=== PATIENT | female | born 1980 | race Caucasian/White ===

== ENCOUNTER 2020-11-23 18:55 | Emergency (ER) | payer MEDICAID, SELFPAY ==
[2020-11-23 18:57] VITALS: BP 132/54; PULSE 81; RESP 18; TEMP 36.1; O2SAT 100; BMI 54.8
--- NOTE | 2020-11-23 19:02 | RAD_ITS ---
STUDY: X-RAY - RIGHT ANKLE REASON FOR EXAM: Female, 40 years old. INJURED RIGHT FOOT YESTERDAY AND TODAY. LATERAL SWELLING. TECHNIQUE: 3 view(s) of the ankle. COMPARISON: None. FINDINGS: Normal visualized distal tibia and fibula. Normal medial and lateral malleoli. Normal tibiotalar articulation and ankle mortise. Small plantar calcaneal spur noted. Normal visualized talus and calcaneus. The visualized subtalar, talonavicular, calcaneocuboid and tarsal articulations are normal. There is no demonstrated fracture. Mild to moderate soft tissue swelling is present in the lower leg and ankle. RAD/Ankle min 3 Views IMPRESSION: Mild to moderate soft tissue swelling Electronically Signed: Aftab Wren MD at 21:06 EDT , Service support ,
--- NOTE | 2020-11-23 21:29 | EDS_ITS ---
HPI History of Present Illness Chief Complaint: Lower Extremity Injury Informant: patient Narrative Narrative: 40-year-old female states that last night she twisted her right ankle and then twisted the again today. She notes swelling laterally and pain down onto her foot as well as over the lateral malleolus. No other injuries noted by patient. [facility] Medical History (Updated 11/23/20 @ 21:[address] Carrington Radre DO) Asthma Diabetes mellitus Home Medications Norgestimate-Ethinyl Estradiol [Sprintec] 1 ea PO DAILY 10/29/15 [History Last Taken Unknown] budesonide-formoterol [Symbicort 160/4.5 Mcg Inhaler (SP)] 2 puff INHALATION BID 10/29/15 [History Last Taken Unknown] furosemide 40 mg PO DAILY #7 tablet 10/29/15 [Rx Last Taken Unknown] Allergy/AdvReac Type Severity Reaction Status Date / Time Penicillins [PCN] Allergy Rash Verified 11/23/20 18:56 Social History (Updated 11/23/20 @ 21:[address] Carrington Rader DO) Smoking Status: Never smoker substance use type: does not use ROS ROS ED Constitutional Constitutional ED: Denies chills or weight loss Eyes Eyes: Denies change in vision or diplopia ENT ENT ED: Denies ear pain, rhinorrhea or sore throat Cardiovascular Cardiovascular: Denies chest pain, orthopnea, palpitations or racing heartbeat Respiratory/Chest Respiratory/Chest: Denies cough, dyspnea or orthopnea Gastrointestinal Gastrointestinal: Denies abdominal pain, diarrhea, nausea or vomiting Genitourinary Genitourinary ED: Denies dysuria, hematuria or urinary frequency Musculoskeletal Musculoskeletal: Reports other Details: See history of present illness ; Denies arthralgias or myalgias Integumentary Denies abscess or rash Neurologic Neurologic: Denies headache(s) or weakness Psychiatric Psychiatric: Denies anxiety, depression, suicidal ideation or suicidal thoughts Endocrine Endocrinology: Denies polydipsia, polyphagia or polyuria Allergic/Immunologic Allergic/Immunologic ED: Denies mouth swelling, tongue swelling or urticaria EXAM Physical Exam Const Vital Signs: 11/23/20 18:57 Temperature 97 F L Temperature Source Temporal Pulse Rate 81 Respiratory Rate 18 Blood Pressure 132/54 H Blood Pressure Mean 80 Pulse Ox 100 Oxygen Delivery Method Room Air Positive well nourished, well developed and obese General Appearance ED: well developed Nutritional Appearance: obese HEENT Reports normocephalic, head/scalp atraumatic and moist mucous membranes normocephalic and atraumatic Eyes PERRL and EOMs intact bilaterally General Eye ED: Yes other Neck full ROM, no lymphadenopathy, supple and no JVD Resp normal respiratory effort and clear to auscultation bilaterally Cardio regular rate, regular rhythm and no murmurs GI normal to inspection, nondistended, normoactive bowel sounds and non-tender Palpation: soft Back/Spine no CVA tenderness and normal ROM Extremity Extremity Narrative: There is tenderness along the fifth metatarsal on the lateral malleolus with associated swelling. No fibular head tenderness. General Extremety ED: Yes edema General Extremity: edema Neuro oriented x3 and CN's II-XII intact bilaterally Sensorium / Orientation: alert Motor Exam: strength 5/5 throughout Psych mental status grossly normal Mood & Affect: Negative for depressed or tearful Skin no rashes or lesions noted and no wounds MDM MDM MDM Narrative Medical decision making narrative: My interpretation of the plain films of the right ankle is soft tissue swelling. My interpretation of the plain films of the right foot is soft tissue swelling. Patient will use Jas wrap and crutches until she can ambulate appropriately. Radiography Diagnostic Testing: Clinical Impression(s) from Imaging Studies Ankle X-Ray 11/23/20 19:02 IMPRESSION: Mild to moderate soft tissue swelling Electronically Signed: Aftab Wren MD at 21:06 EDT , Service support , Discharge Plan Triage Chief Complaint: Lower Extremity Injury ED Provider: Carrington Rader Dx/Rx/DC Orders Clinical Impression: Ankle sprain Instructions: ED Ankle Sprain (Adult) Prescriptions: No Action budesonide-formoterol [Symbicort] 1 INHALER inhaler 2 puff inhalation BID RF: 0 Norgestimate-Ethinyl Estradiol [Sprintec] 1 EACH tablet 1 ea PO DAILY RF: 0 furosemide 40 MG tablet 40 mg PO DAILY Qty: 7 RF: 0 Primary Care Provider: Meng Fernandez Referrals: Meng Fernandez MD [Primary Care Provider] - 10-14 Days if not better Disposition Disposition: Home, Self Care
--- NOTE | 2020-11-23 21:38 | RAD_ITS ---
STUDY: X-RAY - LEFT FOOT CLINICAL: Female, 40 years old. TWISTED RIGHT ANKLE LAST NIGHT AND INJURED IT AGAIN TODAY. TECHNIQUE: 3 view(s) of the foot. COMPARISON: None. FINDINGS: Normal talus, calcaneus, and tarsal bones. Normal visualized subtalar, talonavicular, calcaneocuboid, tarsal and tarsometatarsal articulations. Normal metatarsi. Normal metatarsophalangeal joint of the great toe. Normal tibial and fibular sesamoid bones. Normal interphalangeal joint of the great toe. Normal phalanges of the great toe. Normal second through fifth metatarsophalangeal joints. Normal interphalangeal joints and phalanges of the lesser toes. Mild soft tissue swelling is present over the dorsum of the foot. There is no demonstrated fracture. RAD/Foot min 3 Views IMPRESSION: 1. Mild soft tissue swelling over the dorsum of the foot Electronically Signed: Aftab Wren MD at 22:03 EDT , Service support ,
== END 2020-11-23 22:20 | disposition home or self-care (01) ==
PROVIDERS: Emergency Provider Emergency Medicine; PCP Family Medicine
DX: S93.401A Sprain of unspecified ligament of right ankle, initial encounter (principal); X50.1XXA Overexertion from prolonged static or awkward postures, initial encounter; Y93.9 Activity, unspecified; Y92.9 Unspecified place or not applicable; E66.9 Obesity, unspecified; Z68.43 Body mass index [BMI] 50.0-59.9, adult; E11.9 Type 2 diabetes mellitus without complications; J45.909 Unspecified asthma, uncomplicated
CPT/HCPCS: 73610; 73630; 99283

== ENCOUNTER 2021-10-24 06:38 | Day surgery (SDC) | payer MEDICAID, SELFPAY ==
[2021-10-24] MEDS: Lactated Ringers 1,000 ML 15 ML IV (06:50)
[2021-10-24 07:05] VITALS: BP 106/56; PULSE 74; RESP 18; TEMP 36.4; O2SAT 96; BMI 52.2
--- NOTE | 2021-10-24 08:15 | RAD_ITS ---
HISTORY: CERVICAL EPIDURAL STEROID INJECTION. TECHNIQUE: Single spot image. COMPARISON: None. FINDINGS: OSSEOUS STRUCTURES: Needle overlying the spine at the level of the clavicular heads. FLUOROSCOPY TIME: 9.8 seconds. RADIATION DOSE: 3.24 mGy. RAD/Spine 1 View Any Level IMPRESSION: Fluoroscopic guidance for epidural steroid injection. Please refer to procedure note. Electronically Signed: Citlali aWlton MD at 11:10 EDT ,
[2021-10-24] MEDS: MethylPREDNISolone Acetate 80 MG/ML Vial (08:18)
--- NOTE | 2021-10-24 08:34 | OP.PCM_ITS ---
Report of Operation Date of Procedure: 10/24/21 Description of Surgical Findings:: PREOPERATIVE DIAGNOSES: Cervical radiculopathy, cervical degenerative disc disease, cervical spinal stenosis POSTOPERATIVE DIAGNOSES: Cervical radiculopathy, cervical degenerative disc disease, cervical spinal stenosis PROCEDURE PERFORMED: Cervical epidural steroid injection, interlaminar at C7-T1 under fluoroscopic guidance.. ANESTHESIA: Local. BLOOD LOSS: Minimal. COMPLICATIONS: None. DESCRIPTION OF PROCEDURE: History and physical of today was reviewed. Risks and benefits of the procedure were explained. The patient understood and agreed to proceed. Informed consent was obtained. IV inserted per routine protocol. The patient was taken to the operating room and placed in the prone position with a pillow positioned underneath the chest. The neck area was prepped and draped in a sterile fashion using iodine x3. Under fluoroscopy guidance on an AP view, the C7-T1 interlaminar space was identified. The skin and subcutaneous tissue was anesthetized with approximately 3 mL of 1% lidocaine using a 25-gauge regular needle. Under direct visualization on fluoroscopy, on AP view, using a 20-gauge 3-1/2-inch Tuohy needle, the needle was advanced via the skin. The tip of the needle was maneuvered and directed towards the interlaminar space at C7- T1. Loss of resistance technique was carried to air. Loss of resistance technique was encountered. Once encountered, after negative aspiration for blood and CSF, a total of 1 mL of contrast was injected to confirm correct placement of the needle as well as cephalocaudal spread of the contrast. Confirmation was obtained on AP as well as lateral view. After repeated negative aspiration and confirmation, a total of 3 mL of preservative-free normal saline and 80 mg of Depo-Medrol was injected easily. The needle was then removed intact. The patient experienced no sign or symptoms of intrathecal or intravascular injection. The patient experienced no paresthesia. The procedure was completed without any apparent difficulty or any complications. The patient appeared to tolerate it well. ASSESSMENT AND PLAN: This is a 41-year-old female with cervical radiculopathy, cervical degenerative disc disease, cervical spinal stenosis status post cervical epidural steroid injection interlaminar at C7-T1 under fluoroscopic guidance, patient will continue her current medications, patient will follow in approximately 2 weeks for reevaluation.
[2021-10-24 09:04] VITALS: BP 108/65; PULSE 71; RESP 16; TEMP 36.7; O2SAT 99
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
== END 2021-10-24 09:07 | disposition home or self-care (01) ==
LOC: SDC 06:39 → AC 06:41
PROVIDERS: PCP Family Medicine; Referring Provider Anesthesiology Pain Medicine; Visit Provider Anesthesiology Pain Medicine
PROC: 3E0S3BZ Introduction of Anesthetic Agent into Epidural Space, Percutaneous Approach (ICD-10-PCS; CPT 62320; principal; 2021-10-24 08:05)
DX: M50.13 Cervical disc disorder with radiculopathy, cervicothoracic region (principal); M48.02 Spinal stenosis, cervical region; M47.22 Other spondylosis with radiculopathy, cervical region; F41.9 Anxiety disorder, unspecified; F32.9 Major depressive disorder, single episode, unspecified; Z79.899 Other long term (current) drug therapy
CPT/HCPCS: 62323; 64490; 72020; J7120

== ENCOUNTER → 2022-05-16 | Outpatient (CLI) | payer MEDICAID, SELFPAY ==
--- NOTE | 2022-05-16 07:43 | VDLE_ITS ---
Reason For Study: Swelling Procedure LEFT This is a venous duplex using B-mode, color GSV is normal. flow and spectral Doppler. CFV is compressible, spontaneous, phasic, Exam performed in department. competent, and demonstrates normal A preliminary report was called and/or faxed augmentation. to Derek ARMENTA. FV is compressible, spontaneous, phasic, competent and demonstrates normal augmentation. POP V is compressible, spontaneous, phasic, competent and demonstrates normal augmentation. T/P Trunk is compressible. PTV is compressible. LT PerV is compressible. VL/Venous Duplex US, Unilateral Interpretation Summary There is no evidence of left lower extremity deep vein thrombosis. Left great s aphenous vein appears patent and compressible segmentally. Ordering Physician: Jessica Reed Referring Physician: Jessica Reed Performed By: Keli Griffin RVT
== END | disposition home or self-care (01) ==
LOC: CVS 07:38
PROVIDERS: PCP Nurse Practitioner Family; Referring Provider Nurse Practitioner Family; Visit Provider Nurse Practitioner Family
DX: R60.9 Edema, unspecified (principal)
CPT/HCPCS: 93971

== ENCOUNTER 2022-05-18 16:13 | Emergency (ER) | payer MEDICAID, SELFPAY ==
[2022-05-18 16:17] VITALS: BP 122/85; PULSE 97; RESP 18; TEMP 36.2; O2SAT 95; BMI 57.5
--- NOTE | 2022-05-18 16:48 | EKG12_ITS ---
Test Reason : SOB Blood Pressure : / mmHG Vent. Rate : 095 BPM Atrial Rate : 095 BPM P-R Int : 140 ms QRS Dur : 080 ms QT Int : 370 ms P-R-T Axes : 063 035 036 degrees QTc Int : 464 ms Normal sinus rhythm Nonspecific ST abnormality Abnormal ECG Confirmed by ED HAILE ([id number]), newspaper copy editor AYAN SHETTY ([id number]) on 05/23/2022 7:41:11 AM Referred By: KOJO Confirmed By:ED HAILE
--- NOTE | 2022-05-18 16:50 | EDS_ITS ---
HPI History of Present Illness Chief Complaint: Shortness of Breath Informant: patient Narrative Narrative: Patient referred by her primary physician for chest pain shortness of breath and not putting out increased urination after starting Lasix about a week ago. Patient states she has been having dyspnea for a week or so. She saw her family doctor. She thought that there was a weight gain from fluids. It sounds like she had gone from 280 to about 314 pounds over the last month or so. She was started on Lasix 40 mg once a day. But this really did not significantly increase the amount of urine output and did not change the patient's symptoms. Patient is also been having some chest pain. She describes it as a heaviness across her chest. She occasionally gets sharp pains on her left upper chest and down her left arm but is not having those now. She states she has a rare cough but not different than normal as she does have asthma. She is having some increased asthma but is not really using her inhaler more. No fevers or chills. She is having a little bit of left leg soreness along with both leg swelling. But the left leg was more involved. They just an outpatient ultrasound that was negative for DVT. Patient's father in his mid young 60s of heart failure. He had had a heart attack a week or so prior but not prior to the age of 55. Patient is a non- smoker. She does not have a history of high blood pressure cholesterol. Elizabeth dently her glucose was high on some recent labs but she has not been diagnosed or treated as diabetes at this point. She has not had any travel surgery immobilization personal or family history of DVT or PEs. [facility] Medical History Asthma Diabetes mellitus Home Medications Norgestimate-Ethinyl Estradiol [Sprintec] 1 ea PO DAILY 10/29/15 [History Last Taken Unknown] budesonide-formoterol HFA 160 mcg-4.5 mcg/actuation aerosol inhaler (Symbicort) 2 puff inhalation BID 10/29/15 [History Last Taken Unknown] furosemide 40 mg tablet 40 mg PO DAILY ##7 10/29/15 [Rx Last Taken Unknown] Allergy/AdvReac Type Severity Reaction Status Date / Time cephalexin Allergy Other Verified 05/18/22 16:15 ciprofloxacin [From Cipro] Allergy Other Verified 05/18/22 16:15 lisinopril Allergy Other Verified 05/18/22 16:15 methylprednisolone Allergy Other Verified 05/18/22 16:15 [From Medrol] nitrofurantoin Allergy Other Verified 05/18/22 16:15 [From Macrobid] Penicillins [PCN] Allergy Rash Verified 11/23/20 18:56 sulfamethoxazole Allergy Other Verified 05/18/22 16:15 [From Bactrim] trimethoprim [From Bactrim] Allergy Other Verified 05/18/22 16:15 Social History Smoking Status: Never smoker substance use type: does not use ROS ROS ED Constitutional Constitutional ED: Denies chills or fever(s) Eyes Eyes: Denies change in vision ENT ENT ED: Denies ear pain, rhinorrhea or sore throat Cardiovascular Cardiovascular: Reports chest pain; Denies palpitations or racing heartbeat Respiratory/Chest Respiratory/Chest: Reports cough and dyspnea; Denies sputum Gastrointestinal Gastrointestinal: Denies nausea or vomiting Genitourinary Genitourinary ED: Denies dysuria Musculoskeletal Musculoskeletal: Reports back pain and other Details: Patient has some mild chronic back pain that is not different than any other time. Integumentary Denies rash Neurologic Neurologic: Denies paresthesias or weakness Hematologic/Lymphatic Hematologic/Lymphatic: Denies easy bleeding or easy bruising Allergic/Immunologic Allergic/Immunologic ED: Denies urticaria EXAM Physical Exam Narrative Exam Narrative: Patient awake alert no acute distress carries on normal conversation HEENT: Shows no sign of trauma. Mucous membranes are moist Eyes: No icterus Neck shows no JVD Lungs are clear. There may be a slightly prolonged expiration but no actual wheezing is heard. No pain with a deep breath. Heart is regular. Rate about 85 on the monitor now. No ectopy. No muffled heart tones. Pulses distally are normal. Abdomen is obese but otherwise benign. No tenderness. Extremities show no pitting edema. No focal tenderness. No distended veins. Neurologically she is awake alert and appropriate. Const Vital Signs: 05/18/22 16:17 05/18/22 16:41 05/18/22 17:13 Temperature 97.2 F L Temperature Source Temporal Pulse Rate 97 87 Respiratory Rate 18 18 Respiratory Effort Normal Non-Labored Respiratory Pattern Normal Normal Blood Pressure 122/85 H Blood Pressure Mean 97 Pulse Ox 95 Oxygen Delivery Method Room Air 05/18/22 17:13 05/18/22 18:14 Temperature Temperature Source Pulse Rate 94 Respiratory Rate 18 Respiratory Effort Respiratory Pattern Blood Pressure 120/78 Blood Pressure Mean 92 Pulse Ox 94 98 Oxygen Delivery Method Room Air Room Air MDM MDM MDM Narrative Medical decision making narrative: My independent interpretation the patient's chest x-ray shows no acute process. This is consistent with the final reading. New Because her D-dimer was elevated, we did do a CTA of the chest that showed no acute process including no PE or dissection. Patient CBC is normal. Her D-dimer was elevated therefore the CTA was done. Electrolytes show no marked abnormalities. She did have mildly low sodium and mildly elevated glucose. Her troponin was negative and not measurable Her BNP was only 6.5. There is no indication of congestive heart failure, cardiac damage, PE, dissection, pneumonia. Her influenza and COVID are negative. Patient states she has had some more wheezing although I do not hear much now. DuoNeb did seem to help slightly. I will give her a dose of Decadron to see if this will help as she may have an asthma exacerbation and she will follow-up with her physician. Lab Data Attestation: I reviewed the patient's lab results. Labs: Laboratory Results - last 24 hr 05/18/22 05/18/22 05/18/22 17:05 17:05 17:05 WBC 7.8 RBC 4.62 Hgb 12.9 Hct 39.5 MCV 85.5 MCH 27.9 MCHC 32.7 RDW Std Deviation 41.1 RDW Coeff of Derian 13.3 Plt Count 233 MPV 10.1 Immature Gran % (Auto) 0.400 Neut % (Auto) 60.7 Lymph % (Auto) 28.6 Mcpherson % (Auto) 8.5 Eos % (Auto) 1.4 Baso % (Auto) 0.4 Absolute Neuts (auto) 4.7 Absolute Lymphs (auto) 2.23 Nucleated RBC % 0 D-Dimer Quant (PE/DVT) 2.07 H* Sodium 135 L Potassium 3.8 Chloride 106 Carbon Dioxide 25.0 Anion Gap 4 L BUN 14 Creatinine 0.78 Estim Creat Clear Calc 73.55 Est GFR (MDRD) Af Amer 104 Est GFR (MDRD) Non-Af 86 BUN/Creatinine Ratio 18.0 Glucose 123 H Calcium 9.0 Troponin I High Sens < 3 L B-Natriuretic Peptide 05/18/22 17:05 WBC RBC Hgb Hct MCV MCH MCHC RDW Std Deviation RDW Coeff of Derian Plt Count MPV Immature Gran % (Auto) Neut % (Auto) Lymph % (Auto) Mcpherson % (Auto) Eos % (Auto) Baso % (Auto) Absolute Neuts (auto) Absolute Lymphs (auto) Nucleated RBC % D-Dimer Quant (PE/DVT) Sodium Potassium Chloride Carbon Dioxide Anion Gap BUN Creatinine Estim Creat Clear Calc Est GFR (MDRD) Af Amer Est GFR (MDRD) Non-Af BUN/Creatinine Ratio Glucose Calcium Troponin I High Sens B-Natriuretic Peptide 6.5 Radiography Diagnostic Testing: Clinical Impression(s) from Imaging Studies Chest X-Ray 05/18/22 17:05 IMPRESSION: No radiographic evidence of acute cardiopulmonary disease. Electronically Signed: Otis Orozco MD at 17:40 EDT , Chest CTA 05/18/22 17:50 IMPRESSION: No demonstrated pulmonary embolism or arterial dissection. Electronically Signed: Otis Orozco MD at 18:33 EDT , EKG Initial EKG: Comments: My independent interpretation the patient's EKG done for chest pain and dyspnea shows a normal sinus rhythm with overall rate of 95. No ectopy. No significant ST changes but there are some diffuse nonspecific changes. WI interval, QRS duration and QTc are within normal limits. Discharge Plan Triage Chief Complaint: Shortness of Breath Other Complaint: Chest Pain Edema ED Provider: Tito Alexander Dx/Rx/DC Orders Clinical Impression: Dyspnea, Asthma exacerbation Instructions: ED Asthma, Acute (Adult), ED Dyspnea Prescriptions: No Action budesonide-formoterol [Symbicort] 1 INHALER inhaler 2 puff inhalation BID Norgestimate-Ethinyl Estradiol [Sprintec] 1 EACH tablet 1 ea PO DAILY furosemide 40 MG tablet 40 mg PO DAILY Qty: 7 0RF Primary Care Provider: Jessica Reed NP Referrals: Jessica Reed NP, [facility] [Primary Care Provider] - 3-5 Days Disposition Disposition: Home, Self Care
--- NOTE | 2022-05-18 17:05 | RAD_ITS ---
EXAM: XR CHEST, 1 VIEW CLINICAL INDICATION: SOB TECHNIQUE: Frontal view of the chest. This report was created using [employer] report generation technology. COMPARISON: 10.29.15. FINDINGS: LUNGS AND PLEURAL SPACES: Unremarkable. No consolidation or edema. No pneumothorax. No effusion. HEART: Unremarkable. Cardiac silhouette not enlarged. MEDIASTINUM: Central airways and mediastinal contour are unremarkable. BONES/JOINTS: Unremarkable. SOFT TISSUES: Unremarkable. RAD/Chest 1 View (Portable) IMPRESSION: No radiographic evidence of acute cardiopulmonary disease. Electronically Signed: Otis Orozco MD at 17:40 EDT ,
[2022-05-18] MEDS: Ipratropium/Albuterol Sulfate 3 ML AMPUL.NEB INHALATION (17:12)
[2022-05-18 17:13] VITALS: PULSE 87; RESP 18; O2SAT 94
[2022-05-18 17:17] LABS: Absolute Lymphocyte Count 2.23 X10^3/uL (0.83-4.51); Absolute Neutrophil Count 4.7 X10^3/uL (2.0-7.7); Basophil# 0.03 X10^3/uL; Basophil% 0.4 % (0-1); Eosinophil# 0.11 X10^3/uL; Eosinophils% 1.4 % (0-5); Hematocrit 39.5 % (37-47); Hemoglobin 12.9 g/dL (12.0-15.0); Lymphocyte # 2.23 X10^3/ul (0.83-4.51); Lymphocyte % 28.6 % (19-41); Mean Corp Hgb Conc 32.7 g/dL (32-36); Mean Corpuscular Hgb 27.9 pg (27.0-32.0); Mean Corpuscular Volume 85.5 fL (81-99); Mean Platelet Vol. 10.1 fl (6.2-12.0); Monocyte# 0.66 X10^3/uL; Monocyte% 8.5 % (0-10); NRBC Flagged by Analyzer 0 % (0-5); Neutrophil # 4.73 X10^3/uL (2.7-7.7); Neutrophil % 60.7 % (47-70); Platelet Count 233 K/mm3 (150-450); RBC Distribution Width CV 13.3 % (11.6-14.6); RBC Distribution Width SD 41.1 fl (35.1-43.9); Red Blood Count 4.62 M/mm3 (4.2-5.4); White Blood Count 7.8 K/mm3 (4.4-11.0)
[2022-05-18 17:33] LABS: Anion Gap 4 (5-15); BUN 14 mg/dL (7-18); Chloride 106 mmol/L (98-107); Creatinine, Serum 0.78 mg/dL (0.55-1.02); EST Glomerular Filtration Rate 86 mL/min (>60); Est Glom Filt Rate - Afr Amer 104 mL/min (>60); Estimated Creatinine Clearance 73.55 ml/min; Glucose 123 mg/dL (74-106); Potassium 3.8 mmol/L (3.5-5.1); Sodium Level 135 mmol/L (136-145); Troponin-I HS < 3 pg/mL (3.0-54.0)
[2022-05-18 17:39] LABS: BNP,B-Type NATRIURETIC PEPTIDE 6.5 pg/mL (0-100)
[2022-05-18 17:48] LABS: D-Dimer Quantitative (DVT/PE) 2.07 FEU/ug/m (0.27-0.49)
--- NOTE | 2022-05-18 17:50 | CT_ITS ---
EXAM: CT ANGIOGRAPHY CHEST WITHOUT AND WITH INTRAVENOUS CONTRAST CLINICAL INDICATION: pain TECHNIQUE: Helically acquired angiography images were obtained of the chest without and with intravenous contrast. This CT exam was performed using one or more of the following dose reduction techniques: automated exposure control, adjustment of the mA and/or kV according to patient size, and/or use of iterative reconstruction technique. This report was created using [employer] report generation technology. MIP reconstructed images were created and reviewed. CONTRAST: IV 100mL Isovue-370 RADIATION DOSE: CTDIvol = 18.97 mGy, DLP = 561.73 mGy-cm COMPARISON: None. FINDINGS: PULMONARY ARTERIES: Unremarkable. No demonstrated pulmonary embolism or arterial dissection. AORTA: Unremarkable. Normal in caliber. No evidence of dissection. GREAT VESSELS OF AORTIC ARCH: Unremarkable. Normal in caliber. No evidence of dissection. LUNGS AND PLEURAL SPACES: Unremarkable. No mass. No consolidation or edema. No pleural effusion or thickening. No pneumothorax. HEART: Unremarkable. Heart size is normal. No pericardial effusion. No signs of right heart strain, ratio of right ventricle to left ventricle measures less than 1. MEDIASTINUM: Unremarkable. No mediastinal or hilar adenopathy. Esophagus is unremarkable. No hiatal hernia. THYROID: Unremarkable. No thyroid lesions. BONES/JOINTS: There are degenerative findings of the thoracic spine. No suspicious lytic or blastic abnormality. GALLBLADDER AND BILE DUCTS: The gallbladder is surgically absent. CT/CTA Chest W/WO Contrast IMPRESSION: No demonstrated pulmonary embolism or arterial dissection. Electronically Signed: Otis Orozco MD at 18:33 EDT ,
[2022-05-18 18:14] VITALS: BP 120/78; PULSE 94; RESP 18; O2SAT 98
[2022-05-18] MEDS: dexAMETHasone 4 MG Tablet 10 MG PO (19:04)
== END 2022-05-18 19:06 | disposition home or self-care (01) ==
PROVIDERS: Emergency Provider Emergency Medicine; PCP Nurse Practitioner Family; Visit Provider Emergency Medicine
DX: J45.901 Unspecified asthma with (acute) exacerbation (principal); E11.65 Type 2 diabetes mellitus with hyperglycemia; J11.1 Influenza due to unidentified influenza virus with other respiratory manifestations
CPT/HCPCS: 71045; 71275; 80048; 83880; 84484; 85025; 85379; 87428; 93005; 94640; 99285; Q9967; A4216

== ENCOUNTER → 2022-06-02 | Outpatient (CLI) | payer MEDICAID, SELFPAY ==
--- NOTE | 2022-06-03 15:49 | STRESSREP_ITS ---
Stress Test Report Date: 06/02/2022 Procedure: Exercise tolerance test Indications: Chest pain, dyspnea Consent: Per the patient Procedure: The patient exercised on a Usman protocol for 1 minute and 11 seconds achieving a peak heart rate of 144 bpm (81% predicted maximal heart rate) with a peak blood pressure 190/72 mmHg and a peak MET capacity of approximately 4.6 MET's. The baseline ECG demonstrated normal sinus rhythm. The peak exercise ECG demonstrated no significant ischemic changes. [There were no cardiac dysrhythmias pretest, during exercise, or recovery]. The functional capacity was considered significantly decreased for age. The patient had chest pressure and shortness of breath with exercise. The examination was discontinued secondary to severe shortness of breath, chest pressure. Impression: 1. Inability to reach 85% of maximal age-predicted heart rate decreases the sensitivity of this test 2. Stress test is positive for exercise-induced chest pain. 3. Stress test test is negative for exercise-induced EKG changes of ischemia. 4. Functional capacity is significantly decreased for age This note was generated with [employer] software. It may contain incorrect words, spelling, and punctuation that were not noted in checking the note before signing.
== END | disposition home or self-care (01) ==
LOC: CVS 09:43
PROVIDERS: PCP Nurse Practitioner Family; Referring Provider Nurse Practitioner Family; Visit Provider Nurse Practitioner Family
DX: R06.02 Shortness of breath (principal)
CPT/HCPCS: 93017

== ENCOUNTER → 2022-06-12 | Outpatient (CLI) | payer MEDICAID, SELFPAY ==
[2022-06-12 16:42] LABS: Absolute Lymphocyte Count 2.63 X10^3/uL (0.83-4.51); Absolute Neutrophil Count 5.1 X10^3/uL (2.0-7.7); Basophil# 0.04 X10^3/uL; Basophil% 0.5 % (0-1); Eosinophil# 0.19 X10^3/uL; Eosinophils% 2.2 % (0-5); Hematocrit 39.2 % (37-47); Hemoglobin 13.4 g/dL (12.0-15.0); Lymphocyte # 2.63 X10^3/ul (0.83-4.51); Lymphocyte % 29.9 % (19-41); Mean Corp Hgb Conc 34.2 g/dL (32-36); Mean Corpuscular Hgb 28.9 pg (27.0-32.0); Mean Corpuscular Volume 84.5 fL (81-99); Mean Platelet Vol. 9.8 fl (6.2-12.0); Monocyte# 0.79 X10^3/uL; NRBC Flagged by Analyzer 0 % (0-5); Neutrophil # 5.11 X10^3/uL (2.7-7.7); Neutrophil % 58.1 % (47-70); Platelet Count 277 K/mm3 (150-450); RBC Distribution Width CV 13.8 % (11.6-14.6); RBC Distribution Width SD 41.5 fl (35.1-43.9); Red Blood Count 4.64 M/mm3 (4.2-5.4); White Blood Count 8.8 K/mm3 (4.4-11.0)
[2022-06-12 16:54] LABS: Partial Thromboplast Time 26.7 Seconds (24.1-36.2)
[2022-06-12 17:08] LABS: Anion Gap 7 (5-15); BUN 10 mg/dL (7-18); BUN/Creat Ratio 13.8 RATIO (10-20); Calcium,Total 9.1 mg/dL (8.5-10.1); Chloride 106 mmol/L (98-107); Cholesterol 181 mg/dL (200); Creatinine, Serum 0.72 mg/dL (0.55-1.02); EST Glomerular Filtration Rate 93 mL/min (>60); Est Glom Filt Rate - Afr Amer 113 mL/min (>60); Glucose 120 mg/dL (74-106); High Density Lipoprotein 50 mg/dL; Potassium 4.1 mmol/L (3.5-5.1); Sodium Level 140 mmol/L (136-145); Triglycerides 328 mg/dL; Very Low Density Lipoprotein 66 mg/dL (5-40)
== END | disposition home or self-care (01) ==
LOC: LAB 16:28
PROVIDERS: PCP Nurse Practitioner Family; Referring Provider Physician Assistant Medical; Visit Provider Physician Assistant Medical
DX: I20.9 Angina pectoris, unspecified (principal); R06.09 Other forms of dyspnea
CPT/HCPCS: 36415; 80048; 80061; 85025; 85610; 85730

== ENCOUNTER 2022-06-30 06:38 | Day surgery (SDC) | payer MEDICAID, SELFPAY ==
[2022-06-29 07:27] VITALS: BMI 58.1
--- NOTE | 2022-06-30 09:44 | CL.D_ITS ---
Patient Name: TIMO BRICEÑO Study Date: 06/30/2022 Performing: Ramon Seth MD Ht: 62 inches 157.48 cm : 1980 Wt: 317.99 lbs 144.24 kg Age: 42 Gender: female BSA: 2.33 PROCEDURE(S) PERFORMED DC02-(80148)C/COR CLINICAL PROFILE AND INDICATIONS Indications: Other Heart Failure: None Stress/Imaging Stress/Image Study Performed: No CAD Presentations: Other: sob CONCLUSIONS Normal coronary arteries RECOMMENDATIONS Medical therapy DESCRIPTION OF PROCEDURE The patient arrived to the procedure lab. The risks and benefits of the procedure as well as a full description of our services here and current unavailability of surgical backup were fully explained to the patient and/or their significant other prior to the catheterization. The Timeout was completed, verifying the correct patient and procedure. The patient's procedural site was prepped and draped in the usual fashion. Local anesthetic was given subcutaneously to right radial region with Lidocaine 2%. Using a modified Seldinger technique, arterial access was obtained via the right radial artery, a 6Fr sheath was inserted. Right Coronary Artery selective angiography was then performed in multiple views using a 5 Fr. 4.0 Valders catheter. Left Coronary Artery selective angiography was performed in multiple views using a 5 Fr. JL3.5 catheter.The arterial sheath was pulled and a TR Band was applied for hemostasis. 10cc of air CORONARY ANGIOGRAPHY DOMINANCE: Right Dominant LEFT HEART ASSESSMENT Left Ventricular Ejection Fraction: by Echo 55 % Normal LV wall motion. Normal LV wall motion LEFT MAIN: Angiographically normal LEFT ANTERIOR DESCENDING ARTERY: Angiographically normal CIRCUMFLEX ARTERY: Angiographically normal RIGHT CORONARY ARTERY: Angiographically normal COMPLICATIONS No Complications PROCEDURE MEDICATIONS Fentanyl 50 mcg IV Versed 1 mg IV Versed 1 mg IV Versed 1 mg IV Fentanyl 25 mcg IV Fentanyl 25 mcg IV Fentanyl 25 mcg IV Oxygen: 2 L/min via nasal cannula Aspirin (325mg) 1 Tabs PO @ 06/30/2022 07:07:53 Heparin given IA 06/30/2022 08:34:21 Verapamil 2.5mg, Ntg 100mcgs, 3000 units of Heparin given IA 06/30/2022 08:34:21 SUMMARY OF HEMODYNAMIC DATA Time AIR REST ECG 07:06:32 Art 98/57 (71) 08:39:29 AO 124/77 (99) SA 09:02:14 LV 130/7, 16 09:30:12 LV 139/15, 30 09:30:42 LV 141/20, 32 09:31:10 Signed By Ramon Seth MD On 06/30/2022 09:43:18 Ramon Seth MD
== END 2022-06-30 11:05 | disposition home or self-care (01) ==
PROVIDERS: PCP Nurse Practitioner Family; Referring Provider Internal Medicine Cardiovascular Disease; Visit Provider Internal Medicine Cardiovascular Disease
DX: R06.02 Shortness of breath (principal); I20.9 Angina pectoris, unspecified; E11.9 Type 2 diabetes mellitus without complications; R07.9 Chest pain, unspecified; Z82.49 Family history of ischemic heart disease and other diseases of the circulatory system; Z86.16 Personal history of COVID-19; J45.909 Unspecified asthma, uncomplicated; F32.A Depression, unspecified; Z90.49 Acquired absence of other specified parts of digestive tract; R06.09 Other forms of dyspnea
CPT/HCPCS: 93454; 99152; 99153; J7040; Q9967; C1769; C1887; C1894

== ENCOUNTER → 2022-07-06 | Outpatient (CLI) | payer MEDICAID, SELFPAY ==
--- NOTE | 2022-07-06 13:52 | ECHOCS_ITS ---
Reason For Study: DYSPNEA Procedure This was a 2D Doppler, Color Flow transthoracic echocardiogram. The study was technically difficult. Due to body habitus. Exam performed in department. Left Ventricle Normal LV size. Left ventricular systolic function is normal. The estimated ejection fraction is 55 %. Stage 1 diastolic dysfunction. No regional wall motion abnormalities noted. Right Ventricle Normal RV size. Normal systolic function. Atria Normal left atrium. Normal right atrium. Mitral Valve Mitral valve not well visualized. Tricuspid Valve The tricuspid valve is not well visualized. Mild (1+) tricuspid valve insufficiency. Pulmonary artery systolic pressure is 30 mmHg. Aortic Valve The aortic valve is not well visualized. Great Vessels Normal aortic root. The pulmonary artery is normal size. Normal inferior vena cava. Pericardium/Pleural No pericardial effusion. Medication 22 gauge I.V. with prn adaptor inserted into right arm. Diluted definity 2.5ml given slow IV push to enhance endocardial definition. MMode/2D Measurements & Calculations LVIDd: 5.2 cm IVSd: 0.95 cm Ao root diam: 3.3 cm LVIDs: 2.8 cm LVPWd: 0.95 cm RVDd: 2.9 cm FS: 45.9 % LAV(MOD-bp): 51.0 ml LA A4 area: 16.9 cm2 LA dimension(2D): 4.2 cm LAV(MOD-bp) Indexed: 21.9 ml/m2 LAV(MOD-sp2): 47.6 ml LAV(MOD-sp4): 47.3 ml RA A4 area: 12.4 cm2 Time Measurements MV dec time: 0.18 sec Doppler Measurements & Calculations MV E max jeffery: 77.0 cm/sec Lat Peak E' Jeffery: 12.3 cm/sec Med Peak E' Jeffery: 11.6 cm/sec MV A max jeffery: 86.8 cm/sec E/E' lat: 6.2 E/E' med: 6.7 MV E/A: 0.89 MV dec slope: 433.5 cm/sec2 Ao V2 max: 173.6 cm/sec LV V1 max: 121.1 cm/sec Ao max P.1 mmHg LV V1 max P.9 mmHg Ao V2 mean: 123.5 cm/sec LV V1 mean P.4 mmHg Ao mean P.0 mmHg LV V1 mean: 85.7 cm/sec Ao V2 VTI: 36.3 cm LV V1 VTI: 22.7 cm AV (velocity ratio): 0.63 PA V2 max: 102.0 cm/sec TR max jeffery: 251.4 cm/sec PA V2 mean: 72.6 cm/sec TR max P.3 mmHg ECHO/Echo Complete W/ Contrast Interpretation Summary Normal LV size. Left ventricular systolic function is normal. The estimated ejection fraction is 55 %. Stage 1 diastolic dysfunction. Contrast injection was performed. Ordering Physician: Rolo, Ramon Referring Physician: Jessica Reed Performed By: Lainey Wood, EMRE, RVT
== END | disposition home or self-care (01) ==
LOC: CVS 13:51
PROVIDERS: PCP Nurse Practitioner Family; Referring Provider Internal Medicine Cardiovascular Disease; Visit Provider Internal Medicine Cardiovascular Disease
DX: R06.09 Other forms of dyspnea (principal)
CPT/HCPCS: 93306; Q9957; A4216; C8929

== ENCOUNTER 2022-09-30 14:22 | Emergency (ER) | payer MEDICAID, SELFPAY ==
[2022-09-30 14:23] VITALS: BP 142/83; PULSE 89; RESP 16; TEMP 36.1; O2SAT 97; BMI 56.5
--- NOTE | 2022-09-30 14:25 | RAD_ITS ---
STUDY: X-RAY - RIGHT KNEE REASON FOR EXAM: Female, 42 years old. INJURY TECHNIQUE: 3 view(s) of the knee. COMPARISON: None. FINDINGS: There is demineralization of the visualized distal femur. There is demineralization of the tibia and fibula. Normal proximal tibiofibular articulation. 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 There is moderate degenerative arthrosis of the lateral femorotibial compartment with moderate joint space narrowing. Prosthesis of the patellofemoral joint is noted showing normal alignment. The soft tissue structures are unremarkable. RAD/Knee 4 or More Views IMPRESSION: Patellar prosthesis with noted normal alignment and moderate arthrosis of the medial lateral joint space. No evidence of acute fracture. Electronically Signed: Farooq Sherwood DO at 15:41 EDT ,
[2022-09-30] MEDS: Oxycodone/Apap 5/325 Tablet PO (15:11)
--- NOTE | 2022-09-30 15:20 | EDS_ITS ---
<Statement entered by Amber Renteria MD - 09/30/22 16:06> I have personally performed a face to face assessment of the patient and have reviewed the BERNIE Note. Patient presents secondary to right knee injury. Patient has a prior right knee injury and had surgery at the [facility]. Last evening she was holding a large rock. Became too heavy and she dropped down striking her right knee. She has pain and swelling to her right knee. She is able to weight-bear but has antalgic gait. Patient sitting upright in bed no acute distress. Head neck examination unremarkable. Heart is regular rate and rhythm. Lung sounds are clear. Right lower extremity examination reveals well-healed anterior surgical incision. Mild edema noted. Patient is able to straight leg raise her heel off the bed. Strong distal pulses are noted. Right knee x-rays are obtained. Per my interpretation no evidence of acute fracture. Hardware intact. Radiology interpretation is reviewed and agrees. Patient will be given return instructions. She is to follow-up with her orthopedic physician if not improving. HPI History of Present Illness Chief Complaint: Lower Extremity Injury Narrative Narrative: Patient is a 42-year-old female with history of obesity, MARIAM who presents to the emergency department with right knee injury. Patient did have surgery to this knee secondary to patella fracture. Patient states that yesterday, she was moving heavy object when the object fell down striking her knee. Patient does have swelling and ecchymosis. Patient dates has worsening pain with flexion extension as well as ambulation. She is concerned secondary to having history of surgery to this knee. [facility] Medical History (Updated 09/30/22 @ 15:55 by GEOVANY Denise) Asthma COVID-19 Depression Diabetes mellitus Home Medications budesonide-formoterol HFA 160 mcg-4.5 mcg/actuation aerosol inhaler (Symbicort) 2 puff inhalation BID 10/29/15 [History Last Taken Unknown] albuterol sulfate 90 mcg/actuation aerosol inhaler (Ventolin HFA) 1 puff inhalation Q6H PRN shortness of breath or wheezing 06/12/22 [History Last Taken Unknown] sertraline 100 mg tablet 100 mg PO BID 06/12/22 [History Last Taken Unknown] Allergy/AdvReac Type Severity Reaction Status Date / Time cephalexin Allergy Other Verified 09/19/22 14:20 ciprofloxacin [From Cipro] Allergy Other Verified 09/19/22 14:20 lisinopril Allergy Other Verified 09/19/22 14:20 methylprednisolone Allergy Other Verified 09/19/22 14:20 [From Medrol] nitrofurantoin Allergy Other Verified 09/19/22 14:20 [From Macrobid] Penicillins [PCN] Allergy Rash Verified 09/19/22 14:20 sulfamethoxazole Allergy Other Verified 09/19/22 14:20 [From Bactrim] trimethoprim [From Bactrim] Allergy Other Verified 09/19/22 14:20 Family History Father , age 63 Heart disease Surgical History (Updated 06/29/22 @ 13:32 by Ana Philip) H/O: hysterectomy Hx laparoscopic cholecystectomy Social History Smoking Status: Never smoker substance use type: does not use ROS ROS ED ROS Narrative Constitutional: Negative for fever, chills, weight loss, weakness Eyes: Negative for vision loss, vision change, double vision ENT: Negative for any sore throat, ear pain, congestion Cardiovascular: Negative for any chest pain, tightness, palpitations Respiratory: Negative for any cough, sputum production, hemoptysis, dyspnea, dyspnea on exertion, orthopnea Gastrointestinal: Negative for any abdominal pain, nausea, vomiting, diarrhea, constipation, blood in stool, blood in vomit : Negative for any urinary frequency, dysuria, retention, blood in urine Muscle skeletal: Negative for any muscle joint pain, stiffness, myalgias, arthralgias, neck pain, back pain. Positive right knee pain Neurological: Negative for any headache, syncope, numbness or tingling, dizziness Skin: Negative for any rashes, lumps, itching, abrasions, lacerations Psychiatric: Negative for any depression, anxiety, stress, suicidal ideation, homicidal ideation Hematologic: Negative for any easy bruising, excessive bruising, easy bleeding Allergies: Negative for any eczema, hives, rash EXAM Physical Exam Narrative Exam Narrative: Vital signs reviewed. Extremities: Patient has intact extensor mechanism to the right leg. Patient does have some pain on palpation to the anterior patella, ecchymosis, edema noted. No obvious deformity, patient does have bilateral large legs. No neurological focal deficit Neuro: Cranial nerves II through XII intact, no focal neurological deficits. Skin: Clean dry and intact with no rash, purpura, petechiae, vesicles or pustules. Backs/flank: No CVA tenderness, no midline spinal tenderness, no deformity. Psych: Normal mood and affect. No SI, HI or acute psychosis. 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 No evidence of acute fracture. Electronically Signed: Farooq DO Presley at 15:41 EDT , Treatment and Re-Evaluation :: All radiologic examinations were read, reviewed by the emergency department attending. From these reads, a plan of care will be put in place. Patient appears generally well, patient appears nontoxic, vital signs are stable. Patient presents to the emergency department with complaints of right knee pain after striking it with a rock on accident. She is concerned because she does have a past surgical history to this knee. Patient's images of the right knee inter by ER physician shows patellar prosthesis with noted normal alignment and moderate arthrosis of the medial lateral joint space. No evidence of acute fracture. Patient will continue to ice and elevate. Patient will receive an Jas wrap for general support. She instructed to follow-up with orthopedic. All questions answered, patient stable for discharge. Discharge Plan Triage Chief Complaint: Lower Extremity Injury ED Midlevel Provider: Stef Garcia ED Provider: Amber Renteria Dx/Rx/DC Orders Clinical Impression: Contusion of knee Instructions: Bone Contusion, ED Soft Tissue Contusion Prescriptions: No Action sertraline 100 mg tablet 100 mg PO BID albuterol sulfate [Ventolin HFA] 90 mcg/actuation HFA aerosol inhaler 1 puff inhalation Q6H PRN (Reason: shortness of breath or wheezing) Patient Comments: inhale 2 puffs by mouth every 6 hours if needed for wheezing budesonide-formoterol [Symbicort] 1 INHALER inhaler 2 puff inhalation BID Primary Care Provider: Jessica Reed NP Referrals: Jessica Reed NP, [facility] [Primary Care Provider] - Activity Restrictions/Additional Instructions: Please ensure you ice and elevate, use Jas wrap as needed. Disposition Disposition: Home, Self Care
== END 2022-09-30 16:05 | disposition home or self-care (01) ==
PROVIDERS: Emergency Provider Emergency Medicine; PCP Nurse Practitioner Family; Visit Provider Emergency Medicine
DX: S80.01XA Contusion of right knee, initial encounter (principal); E11.9 Type 2 diabetes mellitus without complications; W22.8XXA Striking against or struck by other objects, initial encounter; Y93.89 Activity, other specified; J45.909 Unspecified asthma, uncomplicated; Z79.899 Other long term (current) drug therapy; Z79.51 Long term (current) use of inhaled steroids; F32.A Depression, unspecified
CPT/HCPCS: 73564; 99283

== ENCOUNTER → 2022-10-05 | Outpatient (CLI) | payer MEDICAID, SELFPAY | END | disposition home or self-care (01) | LOC: SL 19:38 | PROVIDERS: PCP Nurse Practitioner Family; Referring Provider Physician Assistant Medical; Visit Provider Physician Assistant Medical | DX: R06.09 Other forms of dyspnea (principal); G47.33 Obstructive sleep apnea (adult) (pediatric) | CPT/HCPCS: 95810 ==

== ENCOUNTER → 2022-11-02 | Outpatient (CLI) | payer MEDICAID, SELFPAY | END | disposition home or self-care (01) | LOC: SL 09:22 | PROVIDERS: PCP Nurse Practitioner Family; Visit Provider Nurse Practitioner Acute Care | DX: G47.33 Obstructive sleep apnea (adult) (pediatric) (principal); Z99.89 Dependence on other enabling machines and devices ==

== ENCOUNTER → 2022-11-09 | Outpatient (CLI) | payer MEDICAID, SELFPAY | END | disposition home or self-care (01) | LOC: SL 13:42 | PROVIDERS: PCP Nurse Practitioner Family; Visit Provider Nurse Practitioner Acute Care | DX: Z00.00 Encounter for general adult medical examination without abnormal findings (principal) ==

== ENCOUNTER → 2022-12-09 | Outpatient (CLI) | payer MEDICAID, SELFPAY ==
--- NOTE | 2022-12-09 10:37 | RAD_ITS ---
INDICATION: PAIN -- RIGHT SHOULDER PAIN EXAMINATION/TECHNIQUE: X-RAY - RIGHT XR Shoulder Min 2 Views 5 VIEWS COMPARISON: No relevant prior comparison study available FINDINGS: SOFT TISSUES: No soft tissue swelling or gas. No radiopaque foreign body. BONES/JOINTS: No acute fracture or subluxation.. Normal alignment. Mild degenerative changes of the glenohumeral and acromioclavicular joints.. No sclerotic or destructive changes observed. RAD/Shoulder min 2 Views IMPRESSION: No acute abnormalities. Mild degenerative changes of the glenohumeral and acromioclavicular joints.. Electronically Signed: Immanuel Armenta MD at 17:22 EDT ,
== END | disposition home or self-care (01) ==
PROVIDERS: PCP Nurse Practitioner Family; Visit Provider Nurse Practitioner Family
DX: M25.511 Pain in right shoulder (principal)
CPT/HCPCS: 73030

== ENCOUNTER 2024-08-02 08:15 | Emergency (ER) | payer MEDICARE, SELFPAY ==
[2024-08-02 08:16] VITALS: BP 145/78; BP 155/80; PULSE 87; RESP 16; RESP 18; TEMP 36.6; TEMP 36.7; O2SAT 96; O2SAT 98; BMI 58.8
--- NOTE | 2024-08-02 08:58 | EX.ED.UPPERE ---
HPI History of Present Illness HPI Narrative: Patient presents with right shoulder and neck pain that has been constant for the past 3 days. Patient states it began rather suddenly. Patient describes it as sharp. Patient states nothing makes it worse and nothing makes it better. Patient admits to some tingling into her neck. Patient states her pain does radiate into her back and into her head. Patient denies any trauma or injury. Patient denies any weakness. Chief Complaint: Upper Extremity Injury Informant: patient Onset/Context/Timing Onset: Days (3) Context: Sudden Onset Timing: Continuous Quality of Pain: Sharp Location: Right shoulder and right neck Worsened by: Nothing Relieved by: Nothing Associated Symptoms Associated Symptoms: Positive for Parasthesia (Tingling on the right side of her neck); Negative for Weakness or Loss of Funtion [facility] Medical History Depression COVID-19 Asthma Diabetes mellitus Home Medications ?Medication ?Instructions ?Recorded ?Last Taken ?Type budesonide-formoterol HFA 160 2 puff inhalation BID 10/29/15 Unknown History mcg-4.5 mcg/actuation aerosol inhaler (Symbicort) albuterol sulfate 90 mcg/actuation 1 puff inhalation Q6H PRN 06/12/22 Unknown History aerosol inhaler (Ventolin HFA) shortness of breath or wheezing sertraline 100 mg tablet 100 mg PO BID 06/12/22 Unknown History naproxen 500 mg tablet 500 mg PO BID PRN #20 tabs 08/02/24 Unknown Rx Allergy/AdvReac Type Severity Reaction Status Date / Time cephalexin Allergy Other Verified 10/30/22 07:49 ciprofloxacin (From Cipro) Allergy Other Verified 10/30/22 07:49 lisinopril Allergy Other Verified 10/30/22 07:49 methylprednisolone (From Allergy Other Verified 10/30/22 07:49 Medrol) nitrofurantoin (From Allergy Other Verified 10/30/22 07:49 Macrobid) Penicillins (PCN) Allergy Rash Verified 10/30/22 07:49 sulfamethoxazole (From Allergy Other Verified 10/30/22 07:49 Bactrim) trimethoprim (From Bactrim) Allergy Other Verified 10/30/22 07:49 Family History Father , age 63 Heart disease MARIAM (obstructive sleep apnea) Sister MARIAM (obstructive sleep apnea) Surgical History H/O: hysterectomy Hx laparoscopic cholecystectomy Social History Smoking Status: Never smoker substance use type: does not use ROS ROS ED Constitutional Constitutional ED: Denies chills or fever(s) Eyes Eyes: Denies blurry vision or change in vision ENT ENT ED: Denies rhinorrhea or sore throat Cardiovascular Cardiovascular: Denies chest pain or palpitations Respiratory/Chest Respiratory/Chest: Denies cough or dyspnea Gastrointestinal Gastrointestinal: Denies nausea or vomiting Genitourinary Genitourinary ED: Denies dysuria or hematuria Musculoskeletal Musculoskeletal: Reports back pain and neck pain Integumentary Denies abscess or rash Neurologic Neurologic: Reports headache(s); Denies weakness Allergic/Immunologic Allergic/Immunologic ED: Denies mouth swelling or urticaria EXAM Physical Exam Const Vital Signs: 08/02/24 08:16 Temperature 98.1 F Temperature Source Oral Pulse Rate 87 Respiratory Rate 16 Blood Pressure 155/80 H Blood Pressure Mean 105 Pulse Ox 96 Oxygen Delivery Method Room Air Positive well nourished and well developed Constitutional Narrative: BMI is 58.8. General Appearance ED: well developed and NAD HEENT Reports moist mucous membranes Neck supple Neck Narrative: There is tenderness over the right cervical paraspinal muscles. There is no midline tenderness. There is no bony crepitus or step-off. Range of motion is slightly limited in bilateral sidebending, right rotation, flexion, and extension secondary to pain. There is no edema or ecchymosis. General: tenderness Resp normal respiratory effort and clear to auscultation bilaterally Cardio regular rate and regular rhythm GI non-tender and non-distended Palpation: soft Extremity Extremity Narrative: There is diffuse tenderness over the right shoulder area. There is no edema or ecchymosis. There is no bony crepitus or step-off. There is no obvious deformity. Range of motion was limited in all motions of the right shoulder secondary to pain. 5/5 bilaterally upper extremities. There are no sensory deficits noted. Radial pulses are equal bilaterally. Neuro oriented x3, CN's II-XII intact bilaterally, moves all extremities, no focal motor deficits and no sensory deficits noted Sensorium / Orientation: alert Motor Exam: strength 5/5 throughout Psych mental status grossly normal MDM MDM MDM Narrative Medical decision making narrative: Differential diagnosis includes muscle strain, tendinitis, arthritis, spondylolisthesis, and occult fracture. X-rays of the right shoulder will be obtained to assess for occult fracture. X-rays of the cervical spine will be obtained to assess for spondylolisthesis. Radiography Diagnostic Testing: X-rays of the cervical spine were obtained. There are 3 views. On my independent interpretation, there is no acute fracture or spondylolisthesis. There are some mild degenerative changes noted. Radiologist also interpreted the x-rays and agrees. X-rays of the right shoulder were obtained. There are 4 views. On my independent interpretation, there is no acute fracture or dislocation. There are some mild degenerative changes. Radiologist also interpreted the x-rays and agrees. Treatment and Re-Evaluation Narrative: Patient was given a dose of [place] here. Patient was advised of her findings. Patient was instructed use ice to the area. Patient was given prescription for Naprosyn. Patient instructed to follow-up with her primary care physician in 5 to 7 days. Patient was instructed to return if worse in any way. Patient understood and was agreeable with the plan. All questions were answered. Discharge Plan Triage Chief Complaint: Upper Extremity Injury ED Provider: Juan Gamez Dx/Rx/DC Orders Clinical Impression: Muscle strain of right shoulder region, Acute cervical myofascial strain Instructions: ED Neck Sprain or Strain, ED Shoulder Pain, Uncertain Cause Prescriptions: New naproxen 500 mg tablet 500 mg PO BID PRN Qty: 20 0RF No Action sertraline 100 mg tablet 100 mg PO BID albuterol sulfate [Ventolin HFA] 90 mcg/actuation HFA aerosol inhaler 1 puff inhalation Q6H PRN (Reason: shortness of breath or wheezing) Patient Comments: inhale 2 puffs by mouth every 6 hours if needed for wheezing budesonide-formoterol [Symbicort] 1 INHALER inhaler 2 puff inhalation BID Primary Care Provider: Lorraine Guerrier Referrals: Lorraine Guerrier PA [Primary Care Provider] - 5-7 Days Print Language: Armenian Disposition Disposition: Home, Self Care
--- NOTE | 2024-08-02 09:12 | RAD_ITS ---
PROCEDURE: SHOULDER MIN 2 VIEWS 08/02/2024 REASON FOR EXAM: INJURY/PAIN TECHNIQUE: SHOULDER MIN 2 VIEWS COMPARISON: None FINDINGS: No acute fracture or dislocations. Mild degenerative changes of the acromioclavicular and glenohumeral joint space. No large joint effusion. Question trace calcific tendinopathy. Mild soft tissue edema. No radiographic foreign body. RAD/Shoulder min 2 Views IMPRESSION: No acute fracture or dislocations. Mild degenerative changes of the right shou lder. Question calcific tendinopathy of the right shoulder. Reading Location: [id number]
--- NOTE | 2024-08-02 09:12 | RAD_ITS ---
PROCEDURE: CERV SPINE 2 OR 3 VIEWS 08/02/2024 REASON FOR EXAM: INJURY/PAIN TECHNIQUE: CERV SPINE 2 OR 3 VIEWS COMPARISON: None FINDINGS: Minimal multilevel degenerative changes of the cervical spine. No acute cervical fracture or subluxations. No acute soft tissue abnormalities. No radiographic foreign body. No dens fractures. RAD/Cerv Spine 2 or 3 Views IMPRESSION: Minimal multilevel degenerative changes of the cervical spine. No acute findin gs. Reading Location: [id number]
--- OUTSIDE RECORDS SUMMARY | 2024-08-02 09:12 | XMS RPT_ITS | CCD ---
Author Organization [facility] Care Team Providers Care Pourer Name Role Phone Fan Issa MD Primary Care Provider Derek UROLOGY PHYSICIAN, UROLOGY PHYSICIAN-C Jessica Primary Care Provide r Dr. Fan Robles Attending Provider Derek UROLOGY PHYSICIAN, UROLOGY PHYSICIAN-C Jessica Referring Provider Derek HE, UROLOGY PHYSICIAN-C Jessica Other Provider Dr. Isaak Clemente Attending Provider Dr. Isaak Clemente Attending Provider DINO Davis Attending Provider JESSICA GALEANA Attending Laury mirtha BRIONES MD, LUIS German Primary Care Unavailable Dr. Ramon Seth Attending Provider System, Provider Not In Primary Care Provider Jean Paul Bailey MD Unavailable Derek UROLOGY PHYSICIAN, UROLOGY PHYSICIAN-C Jessica Primary Care Provide r Derek UROLOGY PHYSICIAN, UROLOGY PHYSICIAN-C Jessica Referring Provider Derek UROLOGY PHYSICIAN, UROLOGY PHYSICIAN-C Jessica Primary Care Provide r Derek HE, UROLOGY PHYSICIAN-C Jessica Referring Provider DINO Davis Attending Provider Nathaniel HE, UROLOGY PHYSICIAN-C Rosanna Attending Provider [phone] Jessica Kruger Primary Care Unavailable Елена Davis Referring Unavail able Елена Davis Attending Unavail able Hofstetter, Jessica Primary Care Unavailable Rolo, Ramon Referring Unavailable Rolo, Ramon Attending Unavailable Hofstetter, Jessica Primary Care Unavailable Hofstetter, Jessica Referring Unavailable Nagajothi, Nagapradee Attending Unavailabl e Hofstetter, Jessica Primary Care Unavailable Hofstetter, Jessica Referring Unavailable Fan Robles Attending Unavailable Hofstetter, Jessica Consulting Unavailable Hofstetter, Jessica Primary Care Unavailable Hofstetter, Jessica Referring Unavailable Nagajothi, Nagapradee Attending Unavailabl e Hofstetter, Jessica Primary Care Unavailable Елена Davis Attending Unavail able Hofstetter, Jessica Referring Unavailable Hofstetter, Jessica Referring Unavailable Hofstetter, Jessica Primary Care Unavailable Nathaniel UROLOGY PHYSICIANRosanna Attending Unavailable Hofstetter, Jessica Primary Care Unavailable Елена Davis Attending Unavail able Hofstetter, Jessica Referring Unavailable Hofstetter, Jessica Primary Care Unavailable Rolo, Cushing Attending Unavailable Hofstetter, Jessica Primary Care Unavailable Rolo, Ramon Referring Unavailable Rolo, Ramon Attending Unavailable Hofstetter, Jessica Primary Care Unavailable Елена Davis Attending Unavail able Елена Davis Referring Unavail able Hofstetter, Jessica Primary Care Unavailable Amber Renteria Attending Unavailable Tito Alexander Attending Unavailable Hofstetter, Jessica Primary Care Unavailable Hofstetter, Jessica Attending Unavailable Hofstetter, Jessica Primary Care Unavailable Hofstetter, Jessica Referring Unavailable Hofstetter, Jessica Primary Care Unavailable Rosanna Armstrong NP Attending Unavailable Hofstetter, Jessica Attending Unavailable Hofstetter, Jessica Primary Care Unavailable Hofstetter, Jessica Referring Unavailable Hofstetter, Jessica Primary Care Unavailable Nathaniel UROLOGY PHYSICIANRosanna Attending Unavailable Paytontettrachna UROLOGY PHYSICIAN, UROLOGY PHYSICIAN-C Jessica Primary Care Provide r Derek UROLOGY PHYSICIAN, UROLOGY PHYSICIAN-C Jesisca Referring Provider DINO Davis Attending Provider Nathaniel UROLOGY PHYSICIAN, UROLOGY PHYSICIAN-Inderjit Marte Attending Provider JEAN PAUL BAILEY Admitting Unavailable LYNN, JEAN PAUL Attending Unavailable LYNN, JEAN PAUL Attending Unavailable ELIANE HAN Attending Unavailable ELIANE HAN Attending Unavailable ANDIE ALY Attending Unavailable ANDIE ALY Attending Unavailable CASSIEAT, ROSANA A. Attending Unavailable LORIRIGO CHERRIE Adams Referring Unavailable ELIANE HAN Attending Unavailable JEAN PAUL BAILEY Attending Unavailable JESSICA KRUGER Referring Unavailable FALAT, ROSANA A. Referring Unavailable FALAT, ROSANA A. Attending Unavailable FALAT, ROSANA A. Referring Unavailable PAYTONTETTER COLIN-JESSICA Jansen Unavailable JUAN DELEON Unavailable RODY SARMIENTO Unavailable MARV SOLER DO Unavailable ENT, THEE Unavailable ROLO HOU, LEON Puckett Unavailable ANSELMO HUO, LUIS German Unavailable PHYSICAL THERAPY, CONSULT Unavailable [facility] ORTHOPEDICS, GENERAL Unavailable Unavailable Sozen, Keyes Unavailable Unavailable NIKUNJ HOU, PATRICIA Packer Unavailable SURGERY, GENERAL Unavailable Unavailable RIVAS HOU, ALLEN Unavailable PULMONARY, GENERAL Unavailable Unavailable LUISA FERRER Unavailable [phone] Vicki ARTEAGA, Nuvia Unavailable Unavailable ANSELMO HOU, JIAN Packer Unavailable RALF HOU, SHAWN Middleton Unavailable [phone] DOTTIE ARTEAGA, CRUZ Unavailable Unavailable LUIS MANUEL HOU, Bryan SMITH Unavailable LANDY BEAULIEU Unavailable Unavailable Jessica Beaulieu Unavailable Unavailable Long BEAULIEU MD Unavailable CHANTELL MOE Unavailable Unavailable ANA MILLER Unavailable Unavailable BARBARA MILLER Unavailable Unavailable Crissy Schrader Unavailable Unavailable JACQUIE HASKINS Unavailable Unavailable Yoli Hinson Unavailable Unavailable Miguel RN, Milady Unavailable Unavailvanessa Mccall RN, Idalmis Unavailable Unavailable GILBERTO BRICEÑO Unavailable Unavailable Unavailable Unavailable Unavailable Unavailable JESSICA KRUGER UROLOGY PHYSICIAN Admitting Unavailab le HOFSTETTER, JESSICA UROLOGY PHYSICIAN Attending Unavailab le HOFSTETTER, JESSICA UROLOGY PHYSICIAN Primary Care Unavailab le HOFSTETTER, JESSICA UROLOGY PHYSICIAN Attending Unavailab le HOFSTETTER, JESSICA UROLOGY PHYSICIAN Primary Care Unavailab le HOFSTETTER, JESSICA UROLOGY PHYSICIAN Admitting Unavailab le HOFSTETTER, JESSICA UROLOGY PHYSICIAN Attending Unavailab le HOFSTETTER, JESSICA UROLOGY PHYSICIAN Primary Care Unavailab le HOFSTETTER, JESSICA UROLOGY PHYSICIAN Admitting Unavailab le HOFSTETTER DEPOT MANAGER-C, JESSICA M Unavailable Unav ailable Fareed LAURA, Lorraine J Unavailable Talib Hdez MD Unavailable Ashley Camilo LPN Unavailable Unavailabl e Unavailable Unavailable [facility] Attending Unavailable Eri Garcia MA Unavailable Unavailable Sobeida Pelaez Unavailable Unavailable Maribeth Kelley MA Unavailable Unavailable Allergies Allergy Classification Reported Allergen(s) Allergy Type Date of Onset Reaction(s) Facility (3 sources) diphenhydrAMINE Drug Allergy 08-24-19 22 Rash, Swelling [facility] (20 sources) oxyCODONE Drug Allergy 08-24-19 22 Other: See Comments [facility] (16 sources) Penicillin Drug Allergy 03-07-19 17 Rash [facility] Work Phone: (8 sources) Penicillins Allergy to substance 11-24-19 21 Rash [facility] (20 sources) Cephalexin Drug Allergy 05-19-19 23 Other, Nausea [facility] (20 sources) Ciprofloxacin Drug Allergy 11-06-19 20 Other [facility] (20 sources) Lisinopril Drug Allergy 05-19-19 23 Other, Headache [facility] (20 sources) methylPREDNISolone Drug Allergy 05-19-19 23 Other [facility] (20 sources) Nitrofurantoin Drug Allergy 05-19-19 23 Other [facility] (7 sources) Sulfamethoxazole Drug Allergy 05-19-19 23 Other [facility] (7 sources) Trimethoprim Drug Allergy 05-19-19 23 Other [facility] (20 sources) Azithromycin Drug Allergy 08-31-19 23 [facility] (20 sources) diphenhydrAMINE Drug Allergy 08-24-19 22 Rash, Swelling [facility] (20 sources) Lisinopril Allergy to substance 05-19-19 [facility] (20 sources) Penicillins Drug Allergy 03-07-19 17 Rash [facility] (20 sources) Sulfamethoxazole Allergy to substance 05-19-19 [facility] (20 sources) Sulfamethoxazole / Trimethoprim Drug Allergy 03-21-19 [facility] (1 source) Cephalexin Drug Allergy 10-31-19 [facility] (1 source) Ciprofloxacin Drug Allergy 10-31-19 [facility] (1 source) Lisinopril Drug Allergy 10-31-19 [facility] (1 source) methylPREDNISolone Drug Allergy 10-31-19 [facility] (1 source) Nitrofurantoin Drug Allergy 10-31-19 [facility] (1 source) Penicillins Drug allergy (disorder) 10-31-19 [facility] (1 source) Sulfamethoxazole Drug Allergy 10-31-19 [facility] (1 source) Trimethoprim Drug Allergy 10-31-19 [facility] (1 source) [facility] [place] [facility] (1 source) [facility] (1 source) [facility] (1 source[facility] (1 source) [facility] (1 source) [facility] (1 source[facility] (1 source[facility] (1 source[facility] (1 source) [facility] (1 source) [facility] (1 source) [facility] (1 source) [facility] (1 source) [facility] (1 source) [facility] (1 source[facility] (1 source[facility] (1 source) [facility] (1 source) [facility] (1 source[facility] (1 source) [facility] (1 source[facility] (1 source[facility] (1 source[facility] (1 source[facility] (1 source) [facility] (1 source) [facility] (1 source) [facility] (20 sources) diphenhydrAMINE Drug Allergy Rash [facility] (1 source[facility] (1 source) [facility] (1 source) [facility] (1 source) [facility] [employer] [facility] (1 source) Azithromycin Drug Allergy [facility] (1 source) diphenhydrAMINE Drug Allergy [facility] (1 source) Penicillins Drug allergy (disorder) [facility] (1 source) Sulfamethoxazole / Trimethoprim Drug Allergy [facility] (1 source) Sulfonamides (Antibiotic) Drug allergy (disorder) [facility] (1 source) [facility] [employer] [facility] (1 source) [facility] [employer] [facility] [employer] [facility] (1 source) [facility] [employer] [facility] (1 source) [facility] [employer] [facility] (1 source) [facility] (1 source) [facility] (1 source) [facility] (1 source) [facility] (1 source) [facility] (1 source) [facility] (1 source) [facility] [place] (1 source) [facility] (1 source) [facility] [place] [facility] (1 source) [facility] (1 source) [facility] [place] [facility] (1 source) [facility] (1 source) [facility] (1 source) [facility]. (1 source) [facility] [employer]; [facility]. (1 source) [facility] [employer] [employer]; [facility] (1 source) [facility].; [facility]. (1 source) [facility].; [facility] [employer] (1 source) [facility] [employer] (1 source) [facility] [employer] [employer] (13 sources) Ciprofloxacin Drug Allergy Nausea [facility].; [place] [employer]. (13 sources) methylPREDNISolone Drug Allergy Rapid pulse [facility]oo[facility]ox (12 sources) NITROFURANTOIN, MACROCRYSTALS / Nitrofurantoin, Monohydrate Drug Allergy Headache [facility].; [place] [employer] (12 sources) Sulfamethoxazole / Trimethoprim Drug Allergy Rash [facility].; [place] [facility]. Medications Current Medications Medication Drug Class(es) Dates Sig (Normalized) Sig (Original) [id number] 200 actuat albuterol 0.09 mg/actuat metered dose inhaler (20 sources) beta2-Adrenergic Agonist Start: 12-15-2022 Start: 08-25-2022 take 2 puff(s) by [facility] every six hours for wheezing albuterol 108 (90 Base) MCG/ACT inhaler inhale 2 puffs by mouth and INTO THE LUNGS every 6 hours if needed for wheezing 0 08/25/2022 Active Start: 06-12-2022 take 1 puff(s) by in halation every six hours Albuterol Sulfate (Ventolin Hfa) 90 mcg/actuation HFA aerosol inhaler Active 1 PUFF INHALATION EVERY 6 HOURS June 11, 2022 11:00pm albuterol sulfat e HFA 90 mcg/actuation aerosol inhaler ; (90 mcg/actuat) take 2 puff(s) by in halation every four hours as needed albuterol HFA (PROAIR HFA) 90 mcg/actuation inhaler Inhale 2 Puffs as instructed every 4 hours as needed. 0 Active Comment on above: Inhale 2 Puffs as in structed every 4 hours as needed. Blood Glucose Monitoring Suppl (True Metrix Meter) w/Device kit (20 sources) Start: 03-14-2022 Blood Glucose Monitoring Suppl (True Metrix Meter) w/Device kit use as directed to TEST BLOOD GLUCOSE 0 03/14/2022 Active 120 actuat budesonide 0.16 mg/actuat / formoterol fumarate 0.0045 mg/actuat metered dose inhaler (20 sources) Corticosteroid, beta2-Adrenergic Agonist Start: 09-21-2023 Start: 08-28-2022 take 2 puff(s) by in halation twice daily Symbicort 160-4.5 MCG/ACT inhaler Inhale 2 puffs 2 times daily. 0 08/28/2022 Active Start: 08-25-2022 Start: 10-29-2015 Budesonide-For moterol (Symbicort 160/4.5 Mcg Inhaler (Sp)) 1 INHALER inhaler Active 2 PUFF INHALATION TWICE A DAY October 28, 2015 11:00pm Start: 10-29-2015 Budesonide-For moterol (Symbicort 160/4.5 Mcg Inhaler (Sp)) 1 INHALER inhaler Active 2 PUFF INHALATION TWICE A DAY October 29, 2015 12:00am Start: 10-29-2015 Budesonide-For moterol (Symbicort 160/4.5 Mcg Inhaler (Sp)) 1 INHALER inhaler Active 2 PUFF INHALATION TWICE A DAY October 29, 2015 12:00am take 2 puff(s) by in halation twice daily budesonide-formoterol (SYMBICORT) 160-4.5 mcg/actuation inhaler Inhale 2 Puffs as instructed twice daily. 0 Active Comment on above: Inhale 2 Puffs as in structed twice daily. fenofibrate 145 mg oral tablet (20 sources) Peroxisome Proliferator Receptor alpha Agonist Start: 06-27-2024 fenofibrate nanocrystallized 145 mg tablet ; 1 tablet daily for 90 days Quantity: 90 {Tablet} Refills: 1 Ordered: 27-Jun-2024 VALENTÍN Guerrier Start: 27-Jun-2024 Start: 02-28-2024 fenofibrate na nocrystallized 145 mg tablet ; 1 tablet daily for 90 days Quantity: 90 {Tablet} Refills: 1 Ordered: 28-Feb-2024 VALENTÍN Guerrier Start: 28-Feb-2024 Start: 09-21-2023 Start: 05-03-2023 Start: 08-12-2022 60 actuat fluticasone propionate 0.25 mg/actuat / salmeterol 0.05 mg/actuat dry powder inhaler (20 sources) Corticosteroid, beta2-Adrenergic Agonist Start: 06-27-2024 fluticasone 250 mcg-salmeteroL 50 mcg/dose blistr powdr for inhalation ; 1 (one) inhalation two times daily for 0 days Quantity: 1 {Each} Refills: 3 Ordered: 27-Jun-2024 VALENTÍN Guerrier Start: 27-Jun-2024 Start: 06-16-2024 fluticasone 25 0 mcg-salmeteroL 50 mcg/dose blistr powdr for inhalation ; 1 (one) inhalation two times daily for 0 days Quantity: 1 {Each} Refills: 3 Ordered: 16-Jun-2024 VALENTÍN Guerrier Start: 16-Jun-2024 Start: 02-28-2024 fluticasone 25 0 mcg-salmeteroL 50 mcg/dose blistr powdr for inhalation ; 1 (one) inhalation two times daily for 0 days Quantity: 1 {Each} Refills: 3 Ordered: 28-Feb-2024 VALENTÍN Guerrier Start: 28-Feb-2024 metFORMIN hydrochloride 500 mg oral tablet (20 sources) Biguanide Start: 08-01-2024 metFORMIN 500 mg tablet ; 1 (one) tablet two times daily for 90 days Quantity: 180 {Tablet} Refills: 0 Ordered: 01-Aug-2024 MD Talib Hdez Start: 01-Aug-2024 Start: 06-03-2024 metFORMIN 500 mg tablet ; 1 (one) tablet daily for 90 days Quantity: 90 {Tablet} Refills: 0 Ordered: 03-Jun-2024 VALENTÍN Guerrier Start: 03-Jun-2024 Start: 02-28-2024 End: 05-28-2024 metFORMIN 500 mg tablet ; 1 (one) tablet daily for 90 days Quantity: 90 {Tablet} Refills: 0 Ordered: 28-Feb-2024 VALENTÍN Guerrier Start: 28-Feb-2024 End: 28-May-2024 Status: Inactive Start: 03-09-2021 End: 06-01-2021 pantoprazole 40 mg delayed release oral tablet (20 sources) Proton Pump Inhibitor Start: 06-27-2024 pantoprazole 40 mg tablet,delayed release ; 1 (one) tablet daily for 0 days Quantity: 30 {Tablet} Refills: 2 Ordered: 27-Jun-2024 VALENTÍN Guerrier Start: 27-Jun-2024 Start: 08-25-2022 pantoprazole 4 0 mg tablet,delayed release ; 1 (one) tablet daily for 0 days Quantity: 30 {Tablet} Refills: 1 Ordered: 03-Jun-2024 MYRNA Neal Start: 03-Jun-2024 potassium chloride 20 meq ex tended release oral tablet (20 sources) Start: 09-21-2023 Start: 08-25-2022 Start: 08-25-2022 potassium chlo ride (Klor-Con) 20 MEQ packet dissolve 1 packet in 4 ounce(s) OF WATER AND DRINK DAILY 0 08/25/2022 Active sertraline 100 mg oral tablet (20 sources) Serotonin Reuptake Inhibitor Start: 06-27-2024 sertraline 100 mg tablet ; 2 (two) tablet daily for 0 days Quantity: 60 {Tablet} Refills: 1 Ordered: 27-Jun-2024 VALENTÍN Guerrier Start: 27-Jun-2024 Start: 05-03-2023 sertraline 100 mg tablet ; 2 (two) tablet daily for 0 days Quantity: 60 {Tablet} Refills: 1 Ordered: 25-Jun-2024 VALENTÍN Guerrier Start: 25-Jun-2024 Start: 06-12-2022 Comment on above: Take two tablets by mouth once daily. traZODone hydrochloride 50 mg oral tablet (20 sources) Serotonin Reuptake Inhibitor Start: take 1 tablet by mouth at bedtime traZODone 50 mg tablet ; 1 to 2 tablet at bedtime for 90 days Quantity: 90 {Tablet} Refills: 0 Ordered: 27-Jun-2024 VALENTÍN Guerrier Start: 27-Jun-2024 Start: 06-17-2024 take 1 tablet by pernell th at bedtime traZODone 50 mg tablet ; 1 to 2 tablet at bedtime for 90 days Quantity: 90 {Tablet} Refills: 0 Ordered: 17-Jun-2024 VALENTÍN Guerrier Start: 17-Jun-2024 Start: 04-23-2024 take 1 tablet by pernell th at bedtime traZODone 50 mg tablet ; 1 to 2 tablet at bedtime for 90 days Quantity: 90 {Tablet} Refills: 0 Ordered: 23-Apr-2024 VALENTÍN Guerrier Start: 23-Apr-2024 Start: 04-01-2024 take 1 tablet by pernell th at bedtime traZODone 50 mg tablet ; 1 to 2 tablet at bedtime for 90 days Quantity: 90 {Tablet} Refills: 0 Ordered: 01-Apr-2024 VIRI Garcia Start: 01-Apr-2024 Start: 12-15-2022 Comment on above: Take 1-2 tablets by mouth at bedtime. Completed/Discontinued Medications Medication Drug Class(es) Dates Sig (Normalized) Sig (Original) acetaminophen 325 mg / HYDROcodone bitartrate 5 mg oral tablet (20 sources) Opioid Agonist Start: 11-24-2020 End: 11-29-2020 Start: 01-09-2020 End: 01-16-2020 acetaminophen 325 mg / oxyCO DONE hydrochloride 5 mg oral tablet (14 sources) Opioid Agonist Aspirin (14 sources) Platelet Aggregation Inhibitor, Nonsteroidal Anti-inflammatory Drug azithromycin 250 mg oral tab let (20 sources) Macrolide Antimicrobial Start: 05-25-2017 End: 05-30-2017 Start: 04-21-2017 End: 04-26-2017 Start: 12-27-2016 End: 2017 Start: 02-27-2011 End: 02-28-2011 baclofen 10 mg oral tablet (14 sources) gamma-Aminobutyric Acid-ergic Agonist Start: 12-30-2019 End: 05-18-2020 benzonatate 200 mg oral capsule (14 sources) Non-narcotic Antitussive Start: 11-19-2015 End: 11-29-2015 bumetanide 1 mg oral tablet (14 sources) Loop Diuretic Start: 11-04-2015 End: 11-11-2015 cefprozil 500 mg oral tablet (20 sources) Cephalosporin Antibacterial Start: 03-23-2017 End: 04-02-2017 Start: 04-17-2016 End: 04-27-2016 cefuroxime 250 mg oral table t (14 sources) Cephalosporin Antibacterial Start: 05-30-2017 End: 06-09-2017 cephalexin 50 mg/ml oral rocael pension (20 sources) Cephalosporin Antibacterial Start: 07-26-2021 End: 07-29-2021 Start: 07-21-2020 End: 07-31-2020 chlorhexidine gluconate 40 m g/ml medicated liquid soap (14 sources) Start: 09-15-2017 End: 09-20-2017 ciprofloxacin 500 mg oral ta blet (14 sources) Quinolone Antimicrobial Start: 06-08-2020 End: 06-15-2020 emollient clobetasol propion ate 0.5 mg/ml topical cream (14 sources) Corticosteroid Start: 11-06-2019 End: 11-13-2019 codeine phosphate 2 mg/ml / guaiFENesin 20 mg/ml oral solution (20 sources) Opioid Agonist Start: 12-27-2016 End: 01-03-2017 Start: 11-19-2015 End: 11-24-2015 cyclobenzaprine hydrochlorid e 10 mg oral tablet (14 sources) Muscle Relaxant Start: 03-08-2022 End: 03-23-2022 dextromethorphan hydrobromid e 2 mg/ml / guaiFENesin 20 mg/ml oral solution (20 sources) Uncompetitive D-jwbwla-D-aspartate Receptor Antagonist, Sigma-1 Agonist Start: 04-21-2017 End: 05-17-2017 doxycycline hyclate 100 mg o ral capsule (20 sources) Tetracycline-class Drug Start: 03-12-2021 End: 03-19-2021 Start: 07-23-2020 End: 07-30-2020 Start: 03-21-2018 End: 04-02-2018 Ethinyl Estradiol / norgesti mate (20 sources) Progestin, Estrogen Start: 04-14-2019 End: 11-06-2019 Start: 01-04-2016 End: 02-09-2017 Start: 10-29-2015 End: 06-12-2022 take 1 tablet by mouth once daily Norgestimate-Ethinyl Estradiol (Sprintec) 1 EACH tablet Discontinued 1 EACH PO DAILY October 28, 2015 11:00pm June 12, 2022 3:04pm Start: 10-29-2015 End: 06-12-2022 take 1 tablet by mouth once daily Norgestimate-Ethinyl Estradiol (Sprintec) 1 EACH tablet Discontinued 1 EACH PO DAILY October 29, 2015 12:00am June 12, 2022 4:04pm Start: 10-29-2015 take 1 tablet by pernell once daily Norgestimate-Ethinyl Estradiol (Sprintec) 1 EACH tablet Active 1 EACH PO DAILY October 29, 2015 12:00am Start: 03-01-2015 End: 03-21-2016 24 hr fexofenadine hydrochloride 180 mg / pseudoephedrine hydrochloride 240 mg extended release oral tablet (14 sources) alpha-Adrenergic Agonist, Histamine-1 Receptor Antagonist Start: 05-25-2017 End: 06-01-2017 fluconazole 150 mg oral tabl et (14 sources) Azole Antifungal Start: 08-14-2016 End: 09-06-2016 furosemide 20 mg oral tablet (20 sources) Loop Diuretic Start: 05-10-2022 End: 05-24-2022 Start: 10-29-2015 End: 06-12-2022 take 40 mg by mouth once daily Furosemide Discontinued 40 MG PO DAILY October 28, 2015 11:00pm June 12, 2022 3:04pm Start: 10-05-2015 End: 11-16-2015 gabapentin 400 mg oral capsu le (20 sources) Anti-epileptic Agent Start: 11-06-2019 End: 12-10-2019 Start: 02-09-2017 End: 02-19-2017 12 hr guaiFENesin 600 mg / pseudoephedrine hydrochloride 60 mg extended release oral tablet (20 sources) alpha-Adrenergic Agonist Start: 05-17-2017 End: 06-25-2017 Start: 11-16-2015 End: 11-25-2015 hydrocortisone 10 mg/ml / neomycin 3.5 mg/ml / polymyxin b [id number] unt/ml otic suspension (14 sources) Aminoglycoside Antibacterial, Polymyxin-class Antibacterial, Corticosteroid Start: 06-07-2017 End: 06-14-2017 hydrOXYzine hydrochloride 25 mg oral tablet (20 sources) Antihistamine Start: 08-25-2022 End: 09-04-2022 Start: 08-25-2022 hydrOXYzine HC l (Atarax) 25 MG tablet Take 25 mg by mouth. 0 08/25/2022 Active indomethacin 50 mg oral capsule (14 sources) Nonsteroidal Anti-inflammatory Drug isopropyl alcohol 0.7 ml/ml medicated pad (20 sources) Start: 03-08-2022 End: 03-09-2022 Start: 03-08-2022 RA Alcohol Swa bs 70 % pads USE DIRECTED 0 03/08/2022 Active ketorolac tromethamine 10 mg oral tablet (14 sources) Nonsteroidal Anti-inflammatory Drug, Cyclooxygenase Inhibitor Start: 04-02-2018 End: 04-05-2018 lisinopril 2.5 mg oral table t (17 sources) Angiotensin Converting Enzyme Inhibitor Start: 03-08-2022 End: 05-10-2022 take 1 tablet by mouth once apolinar y lisinopril 2.5 mg tablet Take 2.5 mg by mouth once daily. 0 Active Comment on above: Take 2.5 mg by mouth once daily. methylPREDNISolone (14 sources) Corticosteroid metOLazone 5 mg oral tablet (14 sources) Thiazide-like Diuretic Start: 11-11-2015 End: 11-16-2015 metroNIDAZOLE 0.0075 mg/mg v aginal gel (14 sources) Nitroimidazole Antimicrobial Start: 03-07-2011 End: 03-12-2011 mupirocin 0.02 mg/mg topical ointment (14 sources) RNA Synthetase Inhibitor Antibacterial Start: 09-15-2017 End: 10-01-2017 naproxen 500 mg oral tablet (14 sources) Nonsteroidal Anti-inflammatory Drug Start: 02-13-2017 End: 05-17-2017 nitrofurantoin, macrocrystal s 25 mg / nitrofurantoin, monohydrate 75 mg oral capsule (20 sources) Nitrofuran Antibacterial Start: 06-03-2020 End: 06-10-2020 Start: 05-18-2020 End: 05-25-2020 Norethindrone (14 sources) Start: 01-07-2019 End: 04-14-2019 nystatin [id number] unt/ml topical cream (14 sources) Polyene Antifungal Start: 08-14-2016 End: 09-06-2016 ondansetron 4 mg disintegrating oral tablet (14 sources) Serotonin-3 Receptor Antagonist Start: 06-04-2015 End: 10-05-2015 oxyCODONE hydrochloride 5 mg oral tablet (20 sources) Opioid Agonist Start: 08-11-2015 End: 02-28-2024 oxyCODONE 5 mg tablet ; 1 (one) Tablet q 6 hrs prn pain for 0 days Quantity: 40 {Tablet} Refills: 0 Ordered: 28-Feb-2024 HEIDY Camilo Start: 11-Aug-2015 End: 28-Feb-2024 Status: Inactive predniSONE 10 mg oral tablet (20 sources) Start: 09-15-2017 End: 09-27-2017 Start: 04-27-2017 End: 05-09-2017 Start: 03-01-2015 End: 06-04-2015 spironolactone 25 mg oral ta blet (14 sources) Aldosterone Antagonist Start: 11-16-2015 End: 12-16-2015 sulfamethoxazole 800 mg / trimethoprim 160 mg oral tablet (14 sources) Dihydrofolate Reductase Inhibitor Antibacterial, Sulfonamide Antimicrobial Start: 09-12-2017 End: 09-22-2017 tamsulosin hydrochloride 0.4 mg oral capsule (14 sources) alpha-Adrenergic Susan torsemide 20 mg oral tablet (14 sources) Loop Diuretic Start: 11-11-2015 End: 11-16-2015 traMADol hydrochloride 50 mg oral tablet (20 sources) Opioid Agonist Start: 10-25-2016 End: 12-01-2016 24 hr venlafaxine 75 mg extended release oral capsule (14 sources) Serotonin and Norepinephrine Reuptake Inhibitor Start: 02-12-2020 End: 07-30-2020 Problems Active Problems Problem Classification Problem Date Documented Da te Episodic/Chronic Abdominal pain (7 sources) Acute abdominal pain; Translations: [Unspecified abdominal pain] 09-06-2016 Episodic Acute bronchitis (14 sources) Acute bronchitis; Translations: [Acute bronchitis, unspecified] 12-27-2016 Episodic Administrative/social admission (20 sources) Patient encounter status; Translations: [Counseling, unspecified] 08-25-2022 Episodic Allergic reactions (14 sources) Contact dermatitis due to plants; Translations: [Unspecified contact dermatitis due to plants, except food] 07-17-2017 Episodic Anxiety disorders (20 sources) Generalized anxiety disorder; Translations: [Mixed anxiety and depressive disorder] Onset: 3 Chronic Asthma (20 sources) Exacerbation of asthma; Translations: [Unspecified asthma with (acute) exacerbation] Onset: 3 05-18-2022 Chronic Calculus of urinary tract (20 sources) Kidney stone; Translations: [Calculus of kidney] 08-25-2022 Episodic Cardiac dysrhythmias (20 sources) Palpitations; Translations: [Palpitations] 08-25-2022 Episodic Coronary atherosclerosis and other heart disease (9 sources) Angina pectoris; Translations: [Angina pectoris, unspecified] Onset: 3 06-12-2022 Chronic Deficiency and other anemia (20 sources) Deficiency anemias; Translations: [Nutritional anemia, unspecified] 08-25-2022 Episodic Diabetes mellitus with complications (1 source) Type 2 diabetes mellitus; Translations: [Type 2 diabetes mellitus with other specified complication] 06-27-2024 Chronic Diabetes mellitus without complication (20 sources) Type 2 diabetes mellitus without complication; Translations: [Type 2 diabetes mellitus without complications] Onset: 3 08-30-2022 Chronic Diabetes mellitus without complication (20 sources) Increased glucose level; Translations: [Other abnormal glucose] 08-25-2022 Episodic Disorders of lipid metabolism (20 sources) Hypertriglyceridemia; Translations: [Pure hyperglyceridemia] 08-25-2022 Chronic E Codes: Adverse effects of medical drugs (7 sources) Adverse reaction to drug; Translations: [Adverse effect of unspecified drugs, medicaments and biological substances, initial encounter] 09-17-2017 Episodic Esophageal disorders (20 sources) Gastroesophageal reflux disease without esophagitis; Translations: [Gastro-esophageal reflux disease without esophagitis] Onset: 3 08-30-2022 Chronic Fluid and electrolyte disorders (20 sources) Hypokalemia; Translations: [Hypokalemia] 08-25-2022 Episodic Genitourinary symptoms and ill-defined conditions (20 sources) Scalding pain on urination ; Translations: [Dysuria] 08-25-2022 Episodic Headache; including migraine (20 sources) Aching headache; Translations: [Headache] 08-25-2022 Episodic Immunizations and screening for infectious disease (20 sources) Requires tetanus and diphtheria vaccination; Translations: [Encounter for immunization] 08-25-2022 Episodic Influenza (20 sources) Influenza due to Influenza B virus; Translations: [Influenza due to other identified influenza virus with other respiratory manifestations] 08-25-2022 Episodic Malaise and fatigue (20 sources) Fatigue; Translations: [Other fatigue] 08-25-2022 Episodic Menstrual disorders (20 sources) Dysmenorrhea; Translations: [Dysmenorrhea, unspecified] 08-25-2022 Chronic Miscellaneous mental health disorders (2 sources) Eating disorder, unspecified; Translations: [Eating disorder, unspecified] Onset: 3 Chronic Mood disorders (20 sources) Major depressive disorder, recurrent, moderate; Translations: [Recurrent major depressive episodes, mild ] Onset: 3 Chronic Nausea and vomiting (14 sources) Nausea; Translations: [Nausea] 06-04-2015 Episodic Neoplasms of unspecified nature or uncertain behavior (20 sources) Monoclonal gammopathy of uncertain significance; Translations: [Monoclonal gammopathy] Onset: 2 Chronic Nonspecific chest pain (16 sources) Chest pain at rest; Translations: [Chest pain, unspecified] 11-16-2015 Episodic Other aftercare (20 sources) Post-discharge follow-up; Translations: [Encounter for follow-up examination after completed treatment for conditions other than malignant neoplasm] 08-02-2021 Episodic Other and ill-defined heart disease (20 sources) Cardiomegaly; Translations: [Cardiomegaly] 08-25-2022 Chronic Other and unspecified benign neoplasm (20 sources) Lipoma of lower limb; Translations: [Benign lipomatous neoplasm of skin and subcutaneous tissue of unspecified limb] 08-25-2022 Episodic Other connective tissue disease (20 sources) Bursitis of right shoulder; Translations: [Bursitis of right shoulder] 08-25-2022 Episodic Other connective tissue disease (7 sources) Heel pain; Translations: [Pain in left foot] 09-12-2017 Episodic Other ear and sense organ disorders (14 sources) Acute otitis externa of bilateral ears; Translations: [Unspecified acute noninfective otitis externa, bilateral] 06-07-2017 Episodic Other ear and sense organ disorders (14 sources) Impacted cerumen of bilateral ears; Translations: [Impacted cerumen, bilateral] 03-23-2017 Episodic Other female genital disorders (20 sources) Abnormal uterine bleeding; Translations: [Other specified abnormal uterine and vaginal bleeding] 04-14-2019 Chronic Other female genital disorders (7 sources) Vaginal bleeding; Translations: [Abnormal uterine and vaginal bleeding, unspecified] 02-27-2011 Chronic Other female genital disorders (14 sources) Vaginal discharge; Translations: [Other specified noninflammatory disorders of vagina] 03-07-2011 Episodic Other gastrointestinal disorders (20 sources) Dysphagia; Translations: [Dysphagia, unspecified] 08-25-2022 Episodic Other gastrointestinal disorders (7 sources) Diarrhea; Translations: [Diarrhea, unspecified] 04-27-2017 Episodic Other hematologic conditions (20 sources) Protein electrophoresis abnormal; Translations: [Other specified abnormalities of plasma proteins] 08-25-2022 Episodic Other hematologic conditions (20 sources) Hyperproteinemia; Translations: [Abnormality of plasma protein, unspecified] Onset: 2 08-25-2022 Episodic Other infections; including parasitic (20 sources) Personal history of other infectious and parasitic diseases Onset: 0 03-09-2021 Episodic Other injuries and conditions due to external causes (7 sources) Injury of ankle; Translations: [Unspecified injury of unspecified ankle, initial encounter] 11-24-2020 Episodic Other injuries and conditions due to external causes (20 sources) Injury of left knee; Translations: [Unspecified injury of left lower leg, initial encounter] 08-11-2015 Episodic Other lower respiratory disease (20 sources) Dyspnea; Translations: [Dyspnea, unspecified] 05-18-2022 Episodic Other lower respiratory disease (20 sources) Dyspnea on exertion; Translations: [Other forms of dyspnea] 06-12-2022 Episodic Other lower respiratory disease (7 sources) Other forms of dyspnea; Translations: [Other respiratory abnormalities] Onset: 3 06-12-2022 Episodic Other lower respiratory disease (4 sources) Shortness of breath; Translations: [Shortness of breath] Onset: 3 Episodic Other lower respiratory disease (7 sources) Pleuritic pain; Translations: [Pleurodynia] 04-27-2017 Episodic Other nervous system disorders (14 sources) Knee pain; Translations: [Other acute postprocedural pain] 06-04-2015 Episodic Other non-traumatic joint disorders (20 sources) Pain in right knee; Translations: [Pain in joint, lower leg] 08-25-2022 Episodic Other non-traumatic joint disorders (20 sources) Pain in right shoulder; Translations: [Pain in joint, shoulder region] 02-13-2017 Episodic Other nutritional; endocrine; and metabolic disorders (20 sources) Body mass index 40+ - severely obese; Translations: [Morbid (severe) obesity due to excess calories] 08-30-2022 Chronic Other nutritional; endocrine; and metabolic disorders (20 sources) Morbid obesity; Translations: [Morbid (severe) obesity due to excess calories] Onset: 3 08-29-2022 Chronic Other nutritional; endocrine; and metabolic disorders (2 sources) Obesity; Translations: [Obesity, unspecified] 10-30-2022 Chronic Other nutritional; endocrine; and metabolic disorders (2 sources) Obesity, unspecified; Translations: [Obesity, unspecified] 10-30-2022 Chronic Other nutritional; endocrine; and metabolic disorders (7 sources) Severe obesity; Translations: [Morbid (severe) obesity due to excess calories] 11-23-2022 Chronic Other nutritional; endocrine; and metabolic disorders (2 sources) Morbid (severe) obesity due to excess calories; Translations: [Morbid (severe) obesity due to excess calories (HCC)] Onset: 3 Chronic Other nutritional; endocrine; and metabolic disorders (2 sources) Body mass index (BMI) 50.0-59.9, adult; Translations: [Body mass index (BMI) 50.0-59.9, adult (HCC)] Onset: 3 Chronic Other nutritional; endocrine; and metabolic disorders (2 sources) Weight loss; Translations: [Weight Loss] Onset: 3 Episodic Other nutritional; endocrine; and metabolic disorders (20 sources) Dietary intake finding; Translations: [Other symptoms and signs concerning food and fluid intake] 08-25-2022 Episodic Other nutritional; endocrine; and metabolic disorders (20 sources) Weight gain; Translations: [Abnormal weight gain] 08-28-2022 Episodic Other nutritional; endocrine; and metabolic disorders (3 sources) Weight increased; Translations: [Abnormal weight gain] 05-03-2023 Episodic Other screening for suspected conditions (not mental disorders or infectious disease) (20 sources) Cardiovascular stress test abnormal; Translations: [Abnormal result of other cardiovascular function study] Onset: 1 08-25-2022 Episodic Other skin disorders (20 sources) Enlargement of neck; Translations: [Localized swelling, mass and lump, neck] 08-25-2022 Episodic Other skin disorders (20 sources) Eruption; Translations: [Rash and other nonspecific skin eruption] 08-25-2022 Episodic Other skin disorders (14 sources) Folliculitis; Translations: [Follicular disorder, unspecified] 09-12-2017 Episodic Other skin disorders (20 sources) Mass of lower limb; Translations: [Localized swelling, mass and lump, right lower limb] 10-30-2014 Episodic Other upper respiratory infections (20 sources) Chronic sinusitis; Translations: [Chronic sinusitis, unspecified] 04-27-2017 Chronic Other upper respiratory infections (20 sources) Acute upper respiratory infection; Translations: [Acute upper respiratory infection, unspecified] 08-25-2022 Episodic Otitis media and related conditions (20 sources) Otitis media of bilateral ears; Translations: [Otitis media, unspecified, bilateral] 08-25-2022 Episodic Pneumonia (except that caused by tuberculosis or sexually transmitted disease) (14 sources) Community acquired pneumonia; Translations: [Pneumonia, unspecified organism] 04-17-2016 Episodic Residual codes; unclassified (3 sources) Obstructive sleep apnea syndrome; Translations: [Obstructive sleep apnea (adult) (pediatric)] 09-19-2022 Chronic Residual codes; unclassified (6 sources) Obstructive sleep apnea (adult) (pediatric); Translations: [Obstructive sleep apnea (adult)(pediatric)] Onset: 3 09-19-2022 Chronic Residual codes; unclassified (20 sources) Family history of diabetes mellitus; Translations: [Family history of diabetes mellitus] 08-25-2022 Episodic Residual codes; unclassified (20 sources) Disturbance in sleep behavior; Translations: [Sleep disorder, unspecified] 08-25-2022 Episodic Residual codes; unclassified (20 sources) Swelling; Translations: [Edema, unspecified] 08-25-2022 Episodic Residual codes; unclassified (20 sources) Overweight; Translations: [Other specified conditions influencing health status] 11-06-2019 Episodic Residual codes; unclassified (7 sources) Peripheral edema; Translations: [Localized edema] 11-16-2015 Episodic Residual codes; unclassified (20 sources) Idiopathic edema; Translations: [Edema, unspecified] 11-11-2015 Episodic Residual codes; unclassified (7 sources) Prevention status; Translations: [Encounter for other procedures for purposes other than remedying health state] 04-14-2014 Episodic Residual codes; unclassified (20 sources) Insomnia; Translations: [Insomnia, unspecified] 02-28-2024 Episodic Skin and subcutaneous tissue infections (14 sources) Abscess of left axilla; Translations: [Cutaneous abscess of left axilla] 03-21-2018 Episodic Spondylosis; intervertebral disc disorders; other back problems (20 sources) Backache; Translations: [Dorsalgia, unspecified] Onset: 3 08-30-2022 Episodic Sprains and strains (8 sources) Sprain of ankle; Translations: [Sprain of unspecified ligament of unspecified ankle, initial encounter] 12-01-2020 Episodic Superficial injury; contusion (4 sources) Contusion of knee; Translations: [Contusion of unspecified knee, initial encounter] Onset: 3 09-30-2022 Episodic Unclassified (1 source) Follow up for multiple chronic conditions - The patient is here for follow-up of asthma, depression, diabetes, GERD, insomnia and other condition(s) (hypokalemia). The patient always takes the prescribed medications. No side effects noted (Needs refills today.). The patient has low activity level and no regular exercise program. The patient's glucose levels are monitored on rare occasion, out of office blood pressure checks occur rarely and dietary compliance is poor and they admit to eating without regard of guidelines. The patient states that breathing effort is stable, there are no vision changes or weakness, weight has increased (up 8 lbs), mood is unchanged and headaches are noted often but not on daily basis. Note for Multiple chronic conditions follow-up: Patient does report that she has been having intermittent chest pain for several months. She reports a tight pain in the center of her chest that will last up to 5 minutes before resolving. She reports that this happens randomly, sometimes at rest and sometimes when she is being active. She denies any shortness of breath or leg swelling. 06-27-2024 Urinary tract infections (20 sources) Acute urinary tract infection; Translations: [Urinary tract infection, site not specified] 07-26-2021 Episodic Past or Other Problems Problem Classification Problem Date Documented Da te Episodic/Chronic Residual codes; unclassified (1 source) Edema, unspecified; Translations: [Edema, unspecified] Onset: 05-24-2022 Episodic Unclassified (10 sources) New to establish - Patient is here to establish care with our office.Patient has a history of asthma. She has been using Symbicort for her symptoms, but reports almost daily use of her rescue inhaler. Her asthma symptoms have worsened with a recent upper respiratory infection.Patient also has a history of diabetes. She is not taking any medications for this and does not regularly check her blood sugar. She does not exercise at this time, though she does like to walk when the weather is nicer.Patient also reports a history of depression. She has been managed with 200mg of sertraline, but still feels symptoms of depression many days. She denies any suicidal thoughts at this time. She denies any side effects with the sertraline. She has not taken any other medication for this.Patient also reports a history of insomnia. This is currently well controlled with nightly trazodone. 02-28-2024 Unclassified (10 sources) [ADDITIONAL REASON] Cold Symptoms - Symptoms include nasal congestion, runny nose, ear pain, ear fullness, sore throat, hoarseness, dry cough, productive cough, wheezing, general malaise and headache, but do not include sneezing, fever, chills or facial pain. The onset was gradual 3 day(s) ago. The symptoms occur constantly. The patient describes this as moderate in severity and worsening. Current treatment includes home remedies. The patient has not been exposed to an individual with similar symptoms. Medical history includes asthma, but patient denies history of seasonal allergies, recurrent sinusitis or recurrent strep pharyngitis. Note for Upper respiratory infection: Patient states she will also get SOB at times. 02-28-2024 Unclassified (3 sources) Cold Symptoms - Symptoms include nasal congestion, runny nose, ear pain, ear fullness, sore throat, hoarseness, dry cough, productive cough, wheezing, general malaise and headache, but do not include sneezing, fever, chills or facial pain. The onset was gradual 3 day(s) ago. The symptoms occur constantly. The patient describes this as moderate in severity and worsening. Current treatment includes home remedies. The patient has not been exposed to an individual with similar symptoms. Medical history includes asthma, but patient denies history of seasonal allergies, recurrent sinusitis or recurrent strep pharyngitis. Note for Upper respiratory infection: Patient states she will also get SOB at times. 02-28-2024 Unclassified (3 sources) [ADDITIONAL REASON] New to establish - Patient is here to establish care with our office.Patient has a history of asthma. She has been using Symbicort for her symptoms, but reports almost daily use of her rescue inhaler. Her asthma symptoms have worsened with a recent upper respiratory infection.Patient also has a history of diabetes. She is not taking any medications for this and does not regularly check her blood sugar. She does not exercise at this time, though she does like to walk when the weather is nicer.Patient also reports a history of depression. She has been managed with 200mg of sertraline, but still feels symptoms of depression many days. She denies any suicidal thoughts at this time. She denies any side effects with the sertraline. She has not taken any other medication for this.Patient also reports a history of insomnia. This is currently well controlled with nightly trazodone. 02-28-2024 Results Test Name Value Interpretation Reference Range Facility Laboratory - Hematology and Cell countsOrdered By: Eri Garcia on 06-27-2024 HbA1c (Bld) [Mass fraction] 7.7 % Abnormal 4.6 - 7.1 % [facility], [facility]. Laboratory - Hematology and Cell countson 02-28-2024 HbA1c (Bld) [Mass fraction] 7.8 % Abnormal 4.6 - 7.1 % [facility], [facility].; [facility], [facility]. HEMOGLOBIN A1C (POM)on 09-20 Glucose [Mass/Vol] 145.6 mg/dL High 0.0 - 0.0 [facility] Comment on above: Result Comment: Do HEMOGLOBIN A1C REFERENCE RANGESBLDo Suggested Diagnosis HbA1c(%) HbA1C (mmol/mol Diabetic >/=6.5 >/=48 Prediabetes 5.7 - 6.4 39 - 47 Normal <5.7 <39 Performed By: [id number] #### [facility],[address] [place] [id number] HbA1c (Bld) [Mass fraction] 6.7 % High 0.0 - 6.5 [facility] Comment on above: Performed By: [id number] #### [facility],[address] [place] [id number] LIPID PROFILEon 09-21-2023 Cholesterol [Mass/Vol] 129 mg/dL Normal 0 - 240 mg/dL [facility], [facility] [facility]. Comment on above: Performed By: #### 2 [id number] #### [facility],[address] [place] [address]40 Cholesterol in HDL [Mass/Vol] 59 mg/dL Normal 40 - 60 [facility] Comment on above: Performed By: #### 2 78810 #### [facility],[address] [place] [address] 16727 Cholesterol in LDL [Mass/Vol] 54 mg/dL Normal 0 - 129 mg/dL [facility], [facility]. Comment on above: Performed By: #### 2 [id number] #### [facility],[address] [place] [address]763 Cholesterol.total/Cho lesterol in HDL [Mass ratio] 2.2 {ratio} Normal 0.0 - 5.0 [facility], [facility]. Comment on above: Performed By: #### 2 48792 #### [facility],[address] [place] [address] 27414 Lipid 1996 panel Normal [facility] Comment on above: Result Comment: LIPI D PROFILE Performed By: #### 2 13876 #### [facility],[address] [place] [address] 84520 Triglyceride [Mass/Vol] 81 mg/dL Normal 0 - 150 mg/dL [facility], [employer]. Comment on above: Performed By: #### 2 81203 #### [facility],[address] [place] [address] 60609 Laboratory - Chemistry and C hemistry - challengeon 09-21-2023 Average glucose Estimated from glycated hemoglobin (Bld) [Mass/Vol] 145.6 mg/dL Abnormal 0.0 - 0.0 mg/dL [facility], [employer].; [facility], [employer]. Cholesterol in HDL [Mass or moles/Vol] 59 mg/dL Normal 40 - 60 mg/dL [facility], [facility].; [facility], [employer]. No Panel Informationon 09-20 6.7 % Abnormal 0.0 - 6.5 % [facility] [employer] [facility], [employer]. CMP with eGFRon 05-03-2023 AGE 43 years Normal [facility] Comment on above: Performed By: #### 2 30560 #### [address] [address] Albumin [Mass/Vol] 3.2 g/dL Abnormal 3.4 - 5.0 g/dL [facility], [employer].; [facility], [employer]. Comment on above: Performed By: #### 2 87572 #### [facility],[address] [place] [address] 47058 Albumin/Globulin [Mass ratio] 0.9 {ratio} Normal 0.9 - 1.6 [facility] Comment on above: Performed By: #### 2 71964 #### [facility],[address] [place] [address] 48652 ALK PHOS 104 U/L Normal 46 - 116 [facility] Comment on above: Performed By: #### 2 82525 #### [facility],[address] [place] [address] 75180 ALT [Catalytic activity/Vol] 22 U/L Normal 16 - 63 U/L [facility], [facility].; [facility] Comment on above: Performed By: #### 2 53486 #### [place] [address] Anion gap [Moles/Vol] 11 mmol/L Normal 10 - 20 [facility] Comment on above: Performed By: #### 2 14606 #### [place] [address] AST [Catalytic activity/Vol] 13 U/L Normal 13 - 39 U/L [facility], [facility].; [facility], [facility] Comment on above: Performed By: #### 2 20665 #### [place] [address] B/C RATIO 13 ratio Normal 0 - 30 [facility] Comment on above: Performed By: #### 2 20064 #### [place] [id number] Bilirubin [Mass/Vol] 0.3 mg/dL Normal 0.2 - 1 .0 mg/dL [facility], [facility].; [facility], [facility] Comment on above: Performed By: #### 2 49452 #### [address] [address] Calcium [Mass/Vol] 8.6 mg/dL Normal 8.5 - 10. 1 mg/dL [facility], [facility].; [facility], [facility] Comment on above: Performed By: #### 2 98413 #### [place] [phone] Chloride [Moles/Vol] 106 mmol/L Normal 98 - 10 7 mmol/L [facility], [facility].; [facility], [facility] Comment on above: Performed By: #### 2 35510 #### [place] [address] CMP with eGFR Normal [facility] Comment on above: Result Comment: COMP REHENSIVE METABOLIC PANEL Performed By: #### 2 84147 #### [address] [address] CO2 [Moles/Vol] 28.2 mmol/L Normal 21.0 - 32.0 mmol/L [facility].; [facility], [facility]. Comment on above: Performed By: #### 2 86620 #### [place] [address] Creatinine [Mass/Vol] 0.75 mg/dL Normal 0.55 - 1.02 mg/dL [facility].; [facility], [facility]. Comment on above: Performed By: #### 2 01563 #### [place] [id number] GFR/1.73 sq M.predicted among non-blacks MDRD (S/P/Bld) [Vol rate/Area] mL/min/{1.73_m2} Normal 60 - 999 [facility] Comment on above: Performed By: #### 2 81541 #### [place] [address] Result Comment: ACCO RDING TO THE NATIONAL KIDNEY DISEASE EDUCATION PROGRAM(NKDE), A NORMAL eGFR IS A VALUE GREATER THAN OR EQUAL TO 60 ML/MIN/1.73 SQ METERS. CHRONIC KIDNEY DISEASE: <60mL/MIN/1.73 SQ METERS KIDNEY FAILURE: <15mL/MIN/1.73 SQ METERS THIS TEST SHOULD ONLY BE USED FOR PATIENTS 18 YEARS OF AGE AND OLDER. Globulin (S) [Mass/Vol] 3.6 g/dL Normal 1.5 - 3.8 g/dL [facility], [facility].; [facility], [facility]. Comment on above: Performed By: #### 2 12113 #### [place] [phone] Glucose [Mass/Vol] 111 mg/dL Abnormal 74 - 106 mg/dL [facility], [facility].; [facility], [facility]. Comment on above: Performed By: #### 2 66427 #### [place] [phone] Potassium [Moles/Vol] 4.3 mmol/L Normal 3.5 - 5.1 mmol/L [facility].; [facility], [facility]. Comment on above: Performed By: #### 2 96450 #### [place] [address] Protein [Mass/Vol] 6.8 g/dL Normal 6.4 - 8.2 g/dL [facility].; [facility], [facility]. Comment on above: Performed By: #### 2 85140 #### [address] [address] Sodium [Moles/Vol] 141 mmol/L Normal 136 - 145 mmol/L [facility].; [facility], [facility] Comment on above: Performed By: #### 2 95734 #### [address] [address] Urea nitrogen [Mass/Vol] 10 mg/dL Normal 7 - 18 mg/dL [facility].; [facility], [facility]. Comment on above: Performed By: #### 2 58577 #### [place] [phone] HEMOGLOBIN A1C (POM)on 05-02 Glucose [Mass/Vol] 145.6 mg/dL High 0.0 - 0.0 [facility] Comment on above: Result Comment: BLDo HEMOGLOBIN A1C REFERENCE RANGESBLDo Suggested Diagnosis HbA1c(%) HbA1C (mmol/mol Diabetic >/=6.5 >/=48 Prediabetes 5.7 - 6.4 39 - 47 Normal <5.7 <39 Performed By: #### 2 79733 #### [address] [place] [address] HbA1c (Bld) [Mass fraction] 6.7 % High 0.0 - 6.5 [facility] Comment on above: Performed By: #### 2 25182 #### [facility],[address] [place] [address] Laboratory - Chemistry and C hemistry - challengeon 05-03-2023 Albumin [Mass/Vol] 0.9 g/dL Normal 0.9 - 1.6 [facility], [facility].; [facility], [facility] Average glucose Estimated from glycated hemoglobin (Bld) [Mass/Vol] 145.6 mg/dL Abnormal 0.0 - 0.0 mg/dL [facility], [facility].; [facility], [facility]. GFR/1.73 sq M.predicted among blacks MDRD (S/P/Bld) [Vol rate/Area] mL/min/{1.73_m2} Normal 60 - 999 {ML/MINUTE} [facility], [facility].; [facility], [facility]. GFR/1.73 sq M.predicted MDRD (S/P/Bld) [Vol rate/Area] mL/min/{1.73_m2} Normal 60 - 999 {ML/MINUTE} [facility], [facility].; [facility], [facility] Urea nitrogen/Creatinine [Mass ratio] 13 {ratio} Normal 0 - 30 {ratio} [facility].; [facility], [facility] No Panel Informationon 05-02 104 U/L Normal 46 - 116 U/L [facility].; [facility], [facility] 11 mmol/L Normal 10 - 20 mmol/L [facility], [facility].; [facility], [facility] 43 {years} Normal [facility].; [facility], Inc 6.7 % Abnormal 0.0 - 6.5 % [facility], [facility].; [facility], [facility] TSHon 05-03-2023 TSH Qn 1.60 m[IU]/L Normal 0.35 - 3.74 {uIU/ml} [facility], [facility].; [facility], [facility]. Comment on above: Performed By: #### 2 12968 #### [facility],[address] [place] [address] Progress Noteon 01-08-2023 Progress Note [facility] PATIENT NAME: Sahra Briceño DATE OF : 1980 Received requested documentation from patient's primary care provider, DALTON Smith. Provider notes that patient is seen every 4 months, and was last seen on 12.15.2022. The patient's diagnosis is depression with anxiety and sleep disturbance and patient is currently prescribed sertraline and trazodone, consistent with EMR documentation. Provider does not note any current concerns about the patient's psychiatric stability at this time. Provider is willing to follow-up with patient for continued support after WLS.Documentation available in the patient's paper psychotherapy chart to protect patient confidentiality and prevent redisclosure. Andie Aly, Ph.D. Clinical Psychologist [facility] Office Visiton 01-05-2023 Follow-up visit [id number] Briceño,Arvin Alves 1980 F Date Provider Department Center 01/05/2023 [id number]-[facility]LE[facility]ANE [facility] None Family History Problem Relation Age of Onset Diabetes Mother Obesity Mother Hypertension Father Heart disease Father Cancer Sister Obesity Sister Obesity Maternal Grandfather Family Status - Relation Status Age at Mother Father Sister Alive Maternal Grandfather Alive Level of Service:41815 [place] OFFICE/OUTPATIENT ESTABLISHED LOW MDM 20-29 MIN Reason for Visit and Comments: Weight Loss [457706] - D/E 2 of 6 [facility] Progress Noteon 01-05-2023 Progress Note HPI, PHYSICAL EXAM, AND PLAN Patient is here today for follow up of their physician supervised diet and exercise in preparation for weight loss surgery. Weight trend since last visit: lost 2 lb iver 1month stable This patient's excess weight is causing the following co-morbid conditions at this time DM Plan: Physical Examination: Blood pressure 133/84, pulse 76, height 5' 2 (1.575 m), weight (!) 307 lb (139 kg). General: This patient is alert and oriented X3 General: This patient is awake, alert, and oriented, and is in no apparent distress. Extremities: No cyanosis, clubbing or edema/ No calf tenderness/No restrictions of movement, is ambulatory without assistance. Neurological: Intact x 4 extremities, no focal deficits notes. Skin: No rashes or lesions noted. Assessment of Current Diet and Exercise Current Diet This patient?s current diet is: 80% meal plan Her diet contains adequate amounts of protein, inadequate amounts of healthy fats, adequate amounts of green, leafy vegetables, and adequate amounts of fruits. Her comfort foods include: none Current Activity Unable to exercise due to pain Current Eating Behaviors This patients demonstrates the following behaviors as they relate to her eating: structured She eats approximately 5-6 times per day. Her last meal/snack was at 6 am/pm. Plan: DM: continue medical management, DE and plan for metabolic weight loss surgery. stable. continue medical management, Diet & Exercise, and plan for metabolic weight loss surgery. Advised patient that She must continue to adhere to regular monthly visits to meet the requirements of her insurance company. Additionally, She is to adopt eating plan recommendations and show weight loss trend to demonstrate readiness for the changes that will be required following surgery. Patient's weight pattern does demonstrates meal plan adoption and weight loss each month Physician Diet Recommendations provided in Patient Instructions Patient: [x] To return in one month for follow up. Comorbids managing [] Has completed insurance required monthly diet and exercise series [] Needs to continue monthly visits until surgery Current Meds Patient's Medications New Prescriptions No medications on file Previous Medications ALBUTEROL 108 (90 BASE) MCG/ACT INHALER inhale 2 puffs by mouth and INTO THE LUNGS every 6 hours if needed for wheezing BLOOD GLUCOSE MONITORING SUPPL (TRUE METRIX METER) W/DEVICE KIT use as directed to TEST BLOOD GLUCOSE FENOFIBRATE (TRICOR) 145 MG TABLET Take 145 mg by mouth daily. HYDROXYZINE HCL (ATARAX) 25 MG TABLET Take 25 mg by mouth. PANTOPRAZOLE (PROTONIX) 40 MG EC TABLET Take 40 mg by mouth daily. POTASSIUM CHLORIDE (KLOR-CON) 20 MEQ PACKET dissolve 1 packet in 4 ounce(s) OF WATER AND DRINK DAILY RA ALCOHOL SWABS 70 % PADS USE DIRECTED SERTRALINE (ZOLOFT) 100 MG TABLET Take 100 mg by mouth. SYMBICORT 160-4.5 MCG/ACT INHALER Inhale 2 puffs 2 times daily. TRAZODONE (DESYREL) 50 MG TABLET Take 50 mg by mouth Nightly. 1-2 tabs Modified Medications No medications on file Discontinued Medications No medications on file I spend a total of 20 minutes on the same day of the visit in discussing/counseling the patient regarding the diet and exercise in the preparation for weight loss surgery.Education on the meal plan and 7 rules of eating is provided. Meal prep is encouraged as a foundation of the meal plan. Food journal is encouraged as a feedback system before and after bariatric surgery. Counseling on no nicotine/alcohol before and after surgery. Exercise and its role in the preparation for weight loss surgery is explained. DM Is associated with obesity and weight loss is discussed as a treatment option for DM Full chart review was performed.Clinical documentation is updated and completed. Normal [facility] Progress Note [facility] PSYCHOLOGICAL TEST RESULTS REPORT PATIENT: Sahra Briceño DATE OF : 1980 SERVICE: Psychologist Interpretation of Psychological Testing SERVICE DATE: 01/05/23 TOTAL INTERPRETATION AND INTEGRATION TIME: 35 minutes DATE OF TEST: 01.05.2023 DATE OF INTAKE VISIT: 01.05.2023 IDENTIFYING DATA: The patient is a 43 y.o. year-old female who is undergoing psychological evaluation prior to bariatric surgery. The patient completed the MMPI-3 as part of a pre-operative work-up to ascertain the extent to which psychiatric factors, if any, might contribute to the patient's post-operative compliance and outcomes. It can also detect physical and mental health symptom exaggeration or minimization. This report is not intended to be used for legal or forensic purposes. EVALUATION PROCEDURES: Semi-structured clinical interview with patient, review of patient medical records, review of [facility] [place] intake paperwork, and administration and scoring of brief symptom inventories was completed at intake. Inventories administered included: PHQ-9, the REKHA-7 (a measure of generalized anxiety), and a DSM-V based eating behavior questionnaire. Patient also completed the [place] Multiphasic Personality Inventory-3 in the office on a separate date. The current report will interpret the results of the [place] Multiphasic Personality Inventory-3 in comparison to the patient's self-report in the clinical interview, as well as the patient's scores on the additional symptom inventories administered. TEST INFORMATION AND VALIDITY: The [place] Multiphasic Personality Inventory-3 (MMPI-3) is a 335-item self-report inventory that assesses a broad range of personality, psychological, and behavioral symptoms. It identifies patterns of symptoms that may affect a patient?s surgical outcome and adherence. The patient completed the MMPI-3 via computer, administered by trained personnel. It took approximately 56 minutes for the patient to complete the test. The patient provided responses to but three of the test items. There is evidence of selective non responsiveness and scores on some of the shorter scales (such as CMP and VIKAS) may be invalid. Scores on the validity scales indicate that the protocol is interpretable. The validity scales assess three types of threats to interpretability: content non-responsiveness, over-reporting, and under-reporting. The patient demonstrated no evidence of over- reporting. Further, there was no evidence of content non-responsiveness detected. Scores in the content non-responsiveness domain suggest evidence of consistent responding. However, There is possible under-reporting by the test-taker denying some minor faults and shortcomings that most people acknowledge. This level of virtuous self-presentation is uncommon, but may, to some extent, reflect a background stressing traditional values. The following interpretations are made with caution, as they may under-represent the level of present problems. SOMATIC/COGNITIVE DYSFUNCTION: There is no evidence of significant somatic or cognitive complaints in this protocol. This includes no clinically significant malaise, neurocognitive complaints, or eating concerns. This is suggestive of normal physical functioning. EMOTIONAL DYSFUNCTION: The patient did not report a clinically significant level of demoralization, low positive emotions, dysfunctional negative emotions, suicidal/ ideation, helplessness/hopelessn ess, self-doubt, inefficacy, compulsivity, anger proneness, or behavior-restricting fears. However, She reports multiple problems involving experiences of stress and feeling nervous including an inability to control anxiety levels. THOUGHT DYSFUNCTION: The patient reports significant persecutory ideation such as believing that others seek to harm her. She may be suspicious of and alienated from others (RC6 = 70). BEHAVIORAL DYSFUNCTION: The patient's scores do not show evidence of behavioral dysfunction. The patient did not report clinically significant antisocial behavior, hypomanic behavior, family problems, juvenile conduct problems, substance abuse, impulsivity, activation/energy, aggression, or cynicism. The patient's responses indicate a higher than average level of behavioral constraint. She is unlikely to engage in externalizing, acting-out behavior. There is no evidence of substance abuse problems. The patient reports a below-average level of past antisocial behavior and is thus unlikely to have had conduct or legal problems (RC4 < 39). She reports a below-average level of activation and engagement with her environment. She is likely to have a very low energy level and to feel disengaged from normal activities (RC9 < 39). She likely has a below-average level of energy and activation. She describes having overly-constrained b (more content not included)... [facility] Progress Note [facility] [place] [facility]IA COMPUTER PATIENT: Sahra Briceño DATE OF : 1980 SERVICE: Psychological Testing by Computer SERVICE DATE: 01/05/23 START/STOP TIME: 11:09 am - 12:05 pm TOTAL TEST TIME: 56 minutes Sahra Briceño completed the [place] Multiphasic Personality Inventory-3 (MMPI-3) in the office, via computer, administered by trained personnel. Test results report was printed, critical items were reviewed, and results will be interpreted by the psychologist in conjunction with intake self-report measures, the patient's medical record, and information gathered at the clinical interview. ANDIE ALY, PhD Clinical Psychologist [facility] Progress Note You are not granted access to view this sensitive note. [facility] Office Visiton 12-22-2022 Follow-up visit [id number] Arvin Briceño 1980 F Date Provider Department Center 12/22/2022 [id number]-PYUFHELIANE HAN [facility] None Family History Problem Relation Age of Onset Diabetes Mother Obesity Mother Hypertension Father Heart disease Father Cancer Sister Obesity Sister Obesity Maternal Grandfather Family Status - Relation Status Age at Mother Father Sister Alive Maternal Grandfather Alive Level of Service:91040 [place] OFFICE/OUTPATIENT ESTABLISHED LOW MDM 20-29 MIN Reason for Visit and Comments: Weight Loss [899053] - D/E 2 of 6 [facility] Progress Noteon 12-22-2022 Progress Note HPI, PHYSICAL EXAM, AND PLAN Patient is here today for follow up of their physician supervised diet and exercise in preparation for weight loss surgery. Weight trend since last visit: gain 4 lb iver 1month stable This patient's excess weight is causing the following co-morbid conditions at this time DM Plan: Physical Examination: BP 116/79 Pulse 78 Ht 5' 2 (1.575 m) Wt (!) 309 lb 12.8 oz (141 kg) BMI 56.66 kg/m? General: This patient is alert and oriented X3 General: This patient is awake, alert, and oriented, and is in no apparent distress. Extremities: No cyanosis, clubbing or edema/ No calf tenderness/No restrictions of movement, is ambulatory without assistance. Neurological: Intact x 4 extremities, no focal deficits notes. Skin: No rashes or lesions noted. Assessment of Current Diet and Exercise Current Diet This patient?s current diet is: 50-80% meal plan Her diet contains adequate amounts of protein, inadequate amounts of healthy fats, adequate amounts of green, leafy vegetables, and adequate amounts of fruits. Her comfort foods include: none Current Activity Unable to exercise due to pain Current Eating Behaviors This patients demonstrates the following behaviors as they relate to her eating: structured She eats approximately 5-6 times per day. Her last meal/snack was at 6 am/pm. Plan: DM: continue medical management, DE and plan for metabolic weight loss surgery. stable. continue medical management, Diet & Exercise, and plan for metabolic weight loss surgery. Advised patient that She must continue to adhere to regular monthly visits to meet the requirements of her insurance company. Additionally, She is to adopt eating plan recommendations and show weight loss trend to demonstrate readiness for the changes that will be required following surgery. Patient's weight pattern does demonstrates meal plan adoption and weight loss each month Physician Diet Recommendations provided in Patient Instructions Patient: [x] To return in one month for follow up. Comorbids managing [] Has completed insurance required monthly diet and exercise series [] Needs to continue monthly visits until surgery Current Meds Patient's Medications New Prescriptions No medications on file Previous Medications ALBUTEROL 108 (90 BASE) MCG/ACT INHALER inhale 2 puffs by mouth and INTO THE LUNGS every 6 hours if needed for wheezing BLOOD GLUCOSE MONITORING SUPPL (TRUE METRIX METER) W/DEVICE KIT use as directed to TEST BLOOD GLUCOSE FENOFIBRATE (TRICOR) 145 MG TABLET Take 145 mg by mouth daily. HYDROXYZINE HCL (ATARAX) 25 MG TABLET Take 25 mg by mouth. PANTOPRAZOLE (PROTONIX) 40 MG EC TABLET Take 40 mg by mouth daily. POTASSIUM CHLORIDE (KLOR-CON) 20 MEQ PACKET dissolve 1 packet in 4 ounce(s) OF WATER AND DRINK DAILY RA ALCOHOL SWABS 70 % PADS USE DIRECTED SERTRALINE (ZOLOFT) 100 MG TABLET Take 100 mg by mouth. SYMBICORT 160-4.5 MCG/ACT INHALER Inhale 2 puffs 2 times daily. TRAZODONE (DESYREL) 50 MG TABLET Take 50 mg by mouth Nightly. 1-2 tabs Modified Medications No medications on file Discontinued Medications No medications on file I spend a total of 20 minutes on the same day of the visit in discussing/counseling the patient regarding the diet and exercise in the preparation for weight loss surgery.Education on the meal plan and 7 rules of eating is provided. Meal prep is encouraged as a foundation of the meal plan. Food journal is encouraged as a feedback system before and after bariatric surgery. Counseling on no nicotine/alcohol before and after surgery. Exercise and its role in the preparation for weight loss surgery is explained. DM Is associated with obesity and weight loss is discussed as a treatment option for DM Full chart review was performed.Clinical documentation is updated and completed. Normal [facility] 36on 12-18-2022 36 Pt had significant gastritis. Can we please start a PPI if she is not already on one for GERD. Thanks AD Normal [facility] Laboratory - Chemistry and C hemistry - challengeon 12-18-2022 Glucose [Mass/Vol] 147 mg/dL High 70 - 100 mg/dL [facility] No Panel Informationon 12-18 Interpretation and review of laboratory results Abnormal [facility] Performed by: [facility], [address] [place], [place] [id number] CLIA ID: [id number] [facility] HGB A1C [CCL]on 12-16-2022 HbA1c (Bld) [Mass fraction] 6.4 % High 4.3-5.6 [facility] Comment on above: Result Comment: Amer ican Diabetes Association guidelines indicate that patients with HgbA1c in the range 5.7-6.4% are at increased risk for development of diabetes, and intervention by lifestyle modification may be beneficial. HgbA1c greater or equal to 6.5% is considered diagnostic of diabetes. Performed By: #### 2 [id number] #### [address] [address] Hemoglobin A0 137 mg/dL Normal [facility] Comment on above: Result Comment: eAG: (Estimated average glucose) is a calculated value from HgbA1c and is business services representative of the average blood glucose level in the last 2-3 [place] [address] Cal Toney III, M.D. [id number] Performed By: #### 2 18210 #### [place] [id number] Deprecated Hgb A1c [place] HbA1c (Bld) [Mass fraction] 6.4 % Abnormal 4.3 - 5.6 % [facility]. Comment on above: Order Comment: Romana rodgers Type: BLOOD SPECIMEN Ordering Facility: [facility] Address: [address] [place] [address] Result Comment: Amer ican Diabetes Association guidelines indicate that patients with HgbA1c in the range 5.7-6.4% are at increased risk for development of diabetes, and intervention by lifestyle modification may be beneficial. HgbA1c greater or equal to 6.5% is considered diagnostic of diabetes. Performed By: #### 5 5454-3 #### [facility] CLIA [id number] [address] [place] [address] STATES OF [facility] HbA1c (Bld)on 12-15-2022 Average glucose Estimated from glycated hemoglobin (Bld) [Mass/Vol] 137 mg/dL Normal [facility] Comment on above: Order Comment: Romana rodgers Type: BLOOD SPECIMEN Ordering Facility: [facility] Address: [address] [place], [place] [id number] Result Comment: eAG: (Estimated average glucose) is a calculated value from HgbA1c and is business services representative of the average blood glucose level in the last 2-3 month period. Performed By: #### 5 5454-3 #### [facility] CLIA [id number] [address] [place] [address] [place] No Panel Informationon 12-15 137 mg/dL Normal [facility] [place] [facility] Cardiovascular Decisions [facility], [facility]. Office Visiton 11-23-2022 Follow-up visit [id number] Arvin Briceño 1980 F Date Provider Department Center 11/23/2022 ELIANE ROBERTS MD None Family History Problem Relation Age of Onset Diabetes Mother Obesity Mother Hypertension Father Heart disease Father Cancer Sister Obesity Sister Obesity Maternal Grandfather Family Status - Relation Status Age at Mother Father Sister Alive Maternal Grandfather Alive Level of Service:56436 [place] OFFICE/OUTPATIENT NEW MODERATE MDM 45-59 MINUTES Reason for Visit and Comments: Weight Loss [872540] - D/E 1 of 6 [facility] Progress Noteon 11-23-2022 Progress Note [facility] SURGICAL WEIGHT LOSS MANAGEMENT PROGRAM SUPERVISED DIET AND EXERCISE ROOMING: INITIAL VISIT Patient: Sahra Briceño Date of : 1980 Service Date: 11/23/2022 Patient is here today to initiate physician-supervised diet and exercise as required by their insurance company prior to approval for weight loss surgery. This patient is alone for the evaluation today This is visit 1 of 6 required visits. Weight Metrics: (From Surgical Wet Loss Management) Today's Vital Signs: Non-Surgical Initial Eval Consult Date: 11/23/22 Initial Height: 5' 2 (157.5 cm) Initial Weight: 305 lb 12.8 oz (139 kg) [place] Body Weight: 125 lb (56.7 kg) Initial BMI: 55.93 Initial Body Fat %: 67.12 EBW: 180 lb (From NonSurgical Weight Loss Tracker) Falls Risk Assessment Patient does not take medications which affect BP or mental status Patient does not have newly prescribed or changed dosage of medications within past 30 days which affect BP or mental status Patient has not fallen in the past 2 months Patient uses the following ambulatory assistive devices: none Patient states the presence of the following traits which increases risk of fall: none Patient is noton home O2 Completed by: Sherita Small LPN [facility] Progress Note [facility] SURGICAL WEIGHT LOSS MANAGEMENT PROGRAM PHYSICIAN SUPERVISED DIET AND EXERCISE SURGICAL PREPARATORY REGIMEN PROGRESS NOTE INITIAL EVALUATION Patient: Sahra Briceño Service Date: 11/23/22 Date of : 1980 Navigation Plan: Patient History/Assessment Summary: The patient is a pleasant 42 y.o. year old female, who stands Height: 5' 2 (157.5 cm) tall with a weight of Weight: (!) 305 lb 12.8 oz (139 kg) pounds, resulting in a BMI of Body mass index is 55.93 kg/m?. kg/m2. She has been overweight for 10+ years, has tried and failed multiple previous diet attempts, and is now in the process of undergoing evaluation for surgical treatment of their obese. She is here today to initiate monthly physician supervised diet and exercise as part of their surgical preparatory regimen. History: Past Medical History: Diagnosis Date Anxiety Asthma Back pain Depression RIVERO (dyspnea on exertion) GERD (gastroesophageal reflux disease) History of kidney stones Joint pain, knee Joint pain, knee MGUS (monoclonal gammopathy of unknown significance) Morbid obesity, unspecified obesity type (HCC) Snoring Type 2 diabetes mellitus (HCC) Past Surgical History: Procedure Laterality Date APPENDECTOMY SECTION, LOW TRANSVERSE x3 CHOLECYSTECTOMY HIP SURGERY HYSTERECTOMY tumor removal KNEE SURGERY x3 Family History Problem Relation Name Age of Onset Diabetes Mother Obesity Mother Hypertension Father Heart disease Father Cancer Sister Obesity Sister Obesity Maternal Grandfather Social History Tobacco Use Smoking status: Never Smokeless tobacco: Never Substance Use Topics Alcohol use: Not Currently This patient's excess weight is causing the following co-morbid conditions at this time:DM Initial Diet & Exercise/SPR Visit Weight Metrics: Date of Initial Diet & Exercise Visit: Consult Date: 11/23/22 Initial Weight: Initial Weight: 305 lb 12.8 oz (139 kg) Initial BMI: Initial BMI: 55.93 [place] Body Weight: [place] Body Weight: 125 lb (56.7 kg) Excess Body Weight: EBW: 180 lb General: This patient is alert and oriented X3 Physical Examination: BP 111/72 Pulse 77 Ht 5' 2 (1.575 m) Wt (!) 305 lb 12.8 oz (139 kg) BMI 55.93 kg/m? General: This patient is obese, and is in no apparent distress. Psychological: Patient is awake, alert and oriented to person, place and time Patient's mood is normal affect Current Diet This patient?s current diet is: 80% meal plan Reviewed PAST DIET HISTORY FORM and CURRENT DIET HISTORY FORM with patient (located in [facility]) Her diet contains adequate amounts of protein, adequate amounts of healthy fats, adequate amounts of green, leafy vegetables, and adequate amounts of fruits. Her comfort foods include:sweets and savory Current Activity This patient currently does exercise for 20 per session, 3 times per week, including the following: walking. Current Eating Behaviors This patients demonstrates the following behaviors as they relate to her eating: structured She eats approximately 5-6 times per day. Her last meal/snack was at 6 PM. Plan: Diagnosis Managing: DM: continue medical management, DE and plan for metabolic weight loss surgery. stable. continue medical management, Diet & Exercise, and plan for metabolic weight loss surgery. Advised patient that She must adhere to regular monthly visits to meet the requirements of her insurance company. Additionally, She must lose approximately one pound per month to demonstrate readiness for the changes that will be required following surgery. Physician Diet Recommendations provided to patient Patient to return for follow up in one month Current Meds Patient's Medications New Prescriptions No medications on file Previous Medications ALBUTEROL 108 (90 BASE) MCG/ACT INHALER inhale 2 puffs by mouth and INTO THE LUNGS every 6 hours if needed for wheezing BLOOD GLUCOSE MONITORING SUPPL (TRUE METRIX METER) W/DEVICE KIT use as directed to TEST BLOOD GLUCOSE FENOFIBRATE (TRICOR) 145 MG TABLET Take 145 mg by mouth daily. HYDROXYZINE HCL (ATARAX) 25 MG TABLET Take 25 mg by mouth. PANTOPRAZOLE (PROTONIX) 40 MG EC TABLET Take 40 mg by mouth daily. POTASSIUM CHLORIDE (KLOR-CON) 20 MEQ PACKET dissolve 1 packet in 4 ounce(s) OF WATER AND DRINK DAILY RA ALCOHOL SWABS 70 % PADS USE DIRECTED SERTRALINE (ZOLOFT) 100 MG TABLET Take 100 mg by mouth. SYMBICORT 160-4.5 MCG/ACT INHALER Inhale 2 puffs 2 times daily. TRAZODONE (DESYREL) 50 MG TABLET Take 50 mg by mouth Nightly. 1-2 tabs Modified Medications No medications on file Discontinued Medications No medications on file I spent a total of 45 minutes on the day of the visit in counseling, discussing lifestyle changes that are pertinent to a successful life after bariatric surgery; and reviewing the chart including available communication from the surgeon. (more content not included)... Normal [facility] Office Visiton 11-15-2022 Follow-up visit [id number] Arvin Briceño Long 1980 F Date Provider Department Center 11/15/2022 [id number] TRAVIS [facility] PULM None Family History Problem Relation Age of Onset Diabetes Mother Obesity Mother Hypertension Father Heart disease Father Cancer Sister Obesity Sister Obesity Maternal Grandfather Family Status - Relation Status Age at Mother Father Sister Alive Maternal Grandfather Alive Level of Service:98096 [place] OFFICE/OUTPATIENT NEW MODERATE MDM 45-59 MINUTES Reason for Visit and Comments: New Patient [542] - WLS Sx CLEARANCE SLEEP EVAL Normal [facility] PATINSon 11-15-2022 ISMAEL YOUR APPOINTMENT TODanis STARR WAS WITH THE [facility]G [facility], COPD CLINIC, PULMONARY AND SLEEP MEDICINE OFFICE. PLEASE CALL OUR OFFICE AT [phone] for our [place] office location or [phone] for our [place] location, IF YOU HAVE NOT RECEIVED YOUR TEST RESULTS 7 DAYS AFTER TESTING IS COMPLETED. PLEASE REMEMBER TO REQUEST REFILLS AT YOUR OFFICE VISITS. PHONE/FAX REQUESTS REQUIRE 48-72 HOURS FOR RESPONSE. A FRIENDLY REMINDER COPAYS ARE DUE AT TIME OF SERVICE. THANK YOU. Our Patients Are Important! We want to improve and you can help. After your visit we want you to feel: Listened to, Respected and have your health care explained. You may receive a survey asking you about your visit. Please complete the survey. We will use your feedback to make improvements. COVID-19 VACCINATION INFORMATION: PH. [phone] HEALTH.ORG/CORONAVIRUS /VACCINE [facility] Central Scheduling [phone] [facility] Sleep Scheduling [phone] Normal [facility] Progress Noteon 11-15-2022 Progress Note [facility] PULMONARY MEDICINE [address] [facility] [address] Dept: [phone] Dept Loc: [phone] Visit type: new Reason for Visit: New Patient (WLS Sx CLEARANCE/SLEEP EVAL) Assessment and Plan Morbid Obesity -Planning for weight loss surgery and will benefit. Asthma -Fairly stable on ICS/LABA but still uses rescue about once a day. -Consider step up to ICS/LABA/LAMA for better control. -Check PFTs Severe MARIAM -On CPAP. Unsure of settings as this was ordered by [place] provider. -Encouraged nightly compliance. Dyspnea -Exertional mostly but does have what she describes chest pain vs chest tightness with exertion which could be related to uncontrolled asthma. -Plan for asthma as above. She sees cardiology at [place]-no records available Follow up- 6 weeks after PFTs. Needs surgical clearance. Subjective History of Present Illness Sahra Briceño is 42 y.o. female with obesity, MGUS, severe MARIAM and DM. She is here for preoperative pulmonary and sleep evaluation prior to weight loss surgery. She is planning for JUANITA-S with Dr Bailey for weight reduction. PMHx includes asthma, obesity, MARIAM on PAP, MGUS Surgical Hx includes Hysterectomy, knee surgery x 3 (right), madelaine, appy No history of [place], blood clots or anemia. No difficult intubations. She reports exertional dyspnea which resolves with rest. Dyspnea and chest pain limit her activities. She saw cardiology in [place] but I do not have these records. She was recently started on CPAP for severe MARIAM but unsure of pressures. She has no oxygen. She is on ICS/LABA (Symbicort 180) and albuterol for asthma. Symptoms occur with exposures to candles, perfumes and environmental allergens such as ragweed. She uses albuterol about once a day. No PFTs ever. She denies any wheezing, cough or chest tightness today. Review of Systems Constitutional: Positive for fatigue. Negative for activity change. HENT: Negative for congestion and postnasal drip. Respiratory: Positive for exertional shortness of breath. Negative for cough, choking, chest tightness and wheezing. Cardiovascular: Negative for chest pain and leg swelling. Gastrointestinal: Negative for abdominal distention and abdominal pain. Musculoskeletal: Positive for arthralgias. Negative for gait problem and myalgias. Psychiatric/Behavioral : Negative for behavioral problems. The patient is not nervous/anxious. All other systems reviewed and are negative Allergies Allergen Reactions Azithromycin Penicillins Rash Childhood reaction. Cephalexin Other reaction(s): Other Ciprofloxacin Other reaction(s): Other Lisinopril Other reaction(s): Other Methylprednisolone Other reaction(s): Other Nitrofurantoin Other reaction(s): Other Oxycodone Other reaction(s): Other: See Comments Headache, dizziness Sulfamethoxazole Other reaction(s): Other Sulfamethoxazole-Trime thoprim Diphenhydramine Rash and Swelling Outpatient Medications Prior to Visit Medication Sig Dispense Refill albuterol 108 (90 Base) MCG/ACT inhaler inhale 2 puffs by mouth and INTO THE LUNGS every 6 hours if needed for wheezing Blood Glucose Monitoring Suppl (True Metrix Meter) w/Device kit use as directed to TEST BLOOD GLUCOSE fenofibrate (Tricor) 145 MG tablet Take 145 mg by mouth daily. hydrOXYzine HCl (Atarax) 25 MG tablet Take 25 mg by mouth. pantoprazole (ProtoNix) 40 MG EC tablet Take 40 mg by mouth daily. potassium chloride (Klor-Con) 20 MEQ packet dissolve 1 packet in 4 ounce(s) OF WATER AND DRINK DAILY RA Alcohol Swabs 70 % pads USE DIRECTED sertraline (Zoloft) 100 MG tablet Take 100 mg by mouth. Symbicort 160-4.5 MCG/ACT inhaler Inhale 2 puffs 2 times daily. traZODone (Desyrel) 50 MG tablet Take 50 mg by mouth Nightly. 1-2 tabs No facility-administered medications prior to visit. Past Medical History: Diagnosis Date Anxiety Asthma Back pain Depression IRVERO (dyspnea on exertion) GERD (gastroesophageal reflux disease) History of kidney stones Joint pain, knee Joint pain, knee MGUS (monoclonal gammopathy of unknown significance) Morbid obesity, unspecified obesity type (HCC) Snoring Type 2 diabetes mellitus (HCC) Social History Tobacco Use Smoking status: Never Smokeless tobacco: Never Substance Use Topics Alcohol use: Not Currently Past Surgical History: Procedure Laterality Date APPENDECTOMY SECTION, LOW TRANSVERSE x3 CHOLECYSTECTOMY HIP SURGERY HYSTERECTOMY tumor removal KNEE SURGERY x3 Family History Problem Relation Name Age of Onset Diabetes Mother Obesity Mother Hypertension Father Heart disease Father Cancer Sister Obesity Sister Obesity Maternal Grandfather Objective BP 130/77 Pulse 79 Temp 36.6 ?C (97.8 ?F) (Temporal) Ht 5' 2 (1.575 m) Wt (!) 309 lb 12.8 oz (141 kg) SpO2 93% BMI 56.66 kg/m? Physical Exam Vitals reviewed. (more content not included)... Normal [facility] Pulmonary Visit Reporton Pulmonary Visit Report [facility] [place] [address] [place] [address] OFFICE VISIT Date of Service: 10/30/22 MR#: [id number] Acct: [id number] Name: SAHRA BRICEÑO Rep #: [id number] : 1980 Provider: GEOVANY Armstrong Age/Sex: 42/F Location: [facility] Status: Signed Assessment and Plan Assessment and Plan (1) MARIAM (obstructive sleep apnea): Status: Acute Plan: New. Lengthy discussion about the pathophysiology of obstructive sleep apnea. We discussed the risks of untreated sleep apnea as well as the benefits. We will proceed with AutoPap 5 to 15 cm of water. The patient is highly motivated towards weight loss and is currently in the process of weight loss surgery. Because of this I think that AutoPap will benefit her best as it will meet her changing needs. Initial goal will be to wear PAP at least 4 hours nightly. Ultimately, it should be worn any time spent sleeping. I have encouraged the patient to call the office with any difficulties acclimating to PAP therapy. Follow up in the office in 3 months, at which time I anticipate the patient will be on PAP therapy for 4-6 weeks. (2) Obesity: Status: Chronic Qualifiers: Body mass index: BMI 50.0-59.9 Obesity classification: adult class 3 (BMI >= 40) Obesity type: due to excess calories Serious obesity comorbidity presence: with serious comorbidity Qualified Code(s): E66.01 - Morbid (severe) obesity due to excess calories; Z68.43 - Body mass index [BMI] 50.0-59.9, adult Plan: Encourage weight loss. The patient is currently working with a specialist to prepare for weight loss surgery. We discussed the relationship between obesity and obstructive sleep apnea. (3) Asthma: Status: Chronic Qualifiers: Asthma complication type: uncomplicated Asthma persistence: intermittent Asthma severity: mild Qualified Code(s): J45.20 - Mild intermittent asthma, uncomplicated Plan: Self diagnosed. No change in maintenance medications. Consider baseline testing at some point. She does not appear to be in exacerbation and does not require any antibiotics or steroids. Follow- up with Dr. Hdez in 3 months. Plan Details Follow Up: 3 Months (DMB) HPI HPI Comments Details: This patient presents to the office today for initial consultation regarding concern for obstructive sleep apnea. She is ambulatory. The patient reports that she snores. I describes it as very bad. She has awakened herself by coughing or gasping or choking while sleeping. She has never feeling rested. She has between 0 and 1 episodes of nocturia at night. She does admit to sometimes nodding off to sleep unintentionally but does not purposefully taking any naps. She is also dealing with some dry mouth and morning headaches. Currently unemployed. She has never seen a lehr attendant. She does carry a self-proclaimed diagnosis of asthma for which she is on Symbicort 2 puffs twice daily. She does report rinsing her mouth out after each use. She denies any medication side effect such as sore throat or thrush. She has a couple asthma attacks per month. She utilizes her albuterol a couple times per month. She does find it to be effective. Past medical family history is significant for: Mother has diabetes. Father had CHF, Lyme disease and hypertension. She has 5 sisters, one of them has obstructive sleep apnea and breast cancer. Another one had Lyme disease. She has 1 son and 2 daughters, all have good health. She does have shortness of breath with exertion. She denies any cough, sputum production or hemoptysis. She experiences wheezing a couple times a month with her asthma attacks. She denies any difficulty with chest pain, chest tightness but occasionally experiences palpitations. She denies any fever, chills or body aches. Test results personally reviewed with the patient: Polysomnogram completed on October 05, 2022. Overall AHI 8.3 events per hour. Impression is mild obstructive sleep apnea. Recommendation is a trial of auto adjusting CPAP. Intake Vital Signs 09/19/22 14:16 09/30/22 14:23 10/30/22 07:47 Height 5 ft 2 in 5 ft 2 in 5 ft 2 in Weight: 314 lb BMI 57.4 BP 119/74 Blood Pressure Location Lt brachial Position Sitting Respiration 20 H Pulse 82 Pulse Source Monitor Temp 97.5 F L Temperature Source Temporal Artery Pulse Oximetry (%) 96 Oxygen Delivery Method room air Intake Visit Reasons: Sleep problems Accompanied by: Self Is patient in pain?: No Allergies cephalexin Allergy (Verified 10/30/22 07:49) Other ciprofloxacin [From Cipro] Allergy (Verified 10/30/22 07:49) Other lisinopril Allergy (Verified 10/30/22 07:49) Other methylprednisolone [From Medrol] Allergy (Verified 10/30/22 07:49) Other nitrofurantoin [From Macrobid] Allergy (Verified 10/30/22 07:49) Other Pe (more content not included)... Normal [facility] Progress Noteon 10-20-2022 Progress Note [facility] BARIATRIC NUTRITION ASSESSMENT SURGICAL WEIGHT LOSS MANAGEMENT PROGRAM Date: 10/20/22 Patient Name: Sahra Briceño Date of : 1980 Type of Assessment: [x] Surgical Patient - Pre-op Initial Assessment Weight Metrics: Today's Height: 5'2 Today's Weight: 314 lb Today's BMI: 57.43 Surgeon: Dr. Bailey Surgical Procedure: [x] JUANITA -S Preop Diet: 2 wks Medical History: Past Medical History: Diagnosis Date Anxiety Asthma Back pain Depression RIVERO (dyspnea on exertion) GERD (gastroesophageal reflux disease) History of kidney stones Joint pain, knee Joint pain, knee MGUS (monoclonal gammopathy of unknown significance) Morbid obesity, unspecified obesity type (HCC) Snoring Type 2 diabetes mellitus (HCC) Current Medications: has a current medication list which includes the following prescription(s): albuterol, true metrix meter, fenofibrate, hydroxyzine hcl, pantoprazole, potassium chloride, ra alcohol swabs, sertraline, symbicort, and trazodone. Weight History Patient has been considering weight loss surgery for a while - referred by family doctor Primary reason(s) for weight loss better manage heart health (noted her father from CHF), increase mobility PREVIOUS WEIGHT LOSS ATTEMPTS Method When Amount lost Amount regained Most successful Keto Diet pills Exercise Watching portions Post Weight Loss Surgery- Type: Patient's current diet quality, relative to the Past weight loss surgery diet is: [x] Good [] Fair [] Poor CURRENT MEAL PLANNING Self Meals planned by x Food shopping done by x Meals cooked by x CURRENT EATING BEHAVIORS: Patient reports she currently eats 2-3 meals per day and snacks between meals. She states depending on her work schedule and what she's doing, can skip lunch. States she loves drinking water, but will also have pop and alcohol on occasion, as well as drinks coffee every morning. Patient was agreeable to working on meal frequency, increasing protein in diet, and eliminating caffeinated, carbonated beverages. 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 Family knowledgeable about/supportive of plans for weight loss surgery: Yes B. Patient understands that they must have someone in their home 28/08 for the first week following surgery, or that they must be able to stay with someone for the first week Yes C. Co-workers knowledgeable about/supportive of plans for weight loss surgery: Yes KNOWLEDGE AND EDUCATION ASSESSMENT AND PLAN Patient's level of knowledge regarding the changes that will have to be made in their diet following weight loss surgery is: [x] Excellent - patient is well informed. Areas of concern include: Frequency of meals/snacks, lack of protein with meals/snacks, beverage intake Current eating practices that will require change with surgery: Increase frequency of meals/snacks, increase protein with meals/snacks, decrease sugar-sweetened beverages, caffeine, carbonation RECOMMENDATIONS AND PLAN [x] Educational Materials Provided [x]Strategies for Eating handout given to and discussed with patient [x] Patient cleared for weight loss surgery Patient able to state major diet changes that need to be made following surgery Patient states/demonstrates readiness to make necessary diet changes [x] Other: Patient to continue to work on these goals: Goals: Have a consistent breakfast, lunch and dinner to work on meal frequency and prevent going too long between meals without eating Have protein with each meal and snack to help meet protein requirements and better manage appetite Eliminate sugar-sweetened/caffei nated/carbonated beverages to promote hydration and continue to increase water Diagnoses: GERD Bariatric Nutrition Assessment completed by: Aleisha Konic MS, RDN, LD Normal [facility] Emergency Department Summary on 09-30-2022 Emergency Department Summary [facility] Medical Records Department [address] [place] [address] Emergency Department Summary 09/30/22 MR#: [id number] Acct: [id number] Name: SAHRA BRICEÑO Rep #: [id number] : 1980 42 From: Amber Renteria MD PCP: GEOVANY Smith Status:DEP ER Location: ED I have personally performed a face to face assessment of the patient and have reviewed the BERNIE Note. Patient presents secondary to right knee injury. Patient has a prior right knee injury and had surgery at the [facility]. Last evening she was holding a large rock. Became too heavy and she dropped down striking her right knee. She has pain and swelling to her right knee. She is able to weight-bear but has antalgic gait. Patient sitting upright in bed no acute distress. Head neck examination unremarkable. Heart is regular rate and rhythm. Lung sounds are clear. Right lower extremity examination reveals well-healed anterior surgical incision. Mild edema noted. Patient is able to straight leg raise her heel off the bed. Strong distal pulses are noted. Right knee x-rays are obtained. Per my interpretation no evidence of acute fracture. Hardware intact. Radiology interpretation is reviewed and agrees. Patient will be given return instructions. She is to follow-up with her orthopedic physician if not improving. HPI History of Present Illness Chief Complaint: Lower Extremity Injury Narrative Narrative: Patient is a 42-year-old female with history of obesity, MARIAM who presents to the emergency department with right knee injury. Patient did have surgery to this knee secondary to patella fracture. Patient states that yesterday, she was moving heavy object when the object fell down striking her knee. Patient does have swelling and ecchymosis. Patient dates has worsening pain with flexion extension as well as ambulation. She is concerned secondary to having history of surgery to this knee. [facility] Medical History (Updated 09/30/22 @ 15:55 by GEOVANY Denise) Asthma COVID-19 Depression Diabetes mellitus Home Medications budesonide-formoterol HFA 160 mcg-4.5 mcg/actuation aerosol inhaler (Symbicort) 2 puff inhalation BID 10/29/15 [History Last Taken Unknown] albuterol sulfate 90 mcg/actuation aerosol inhaler (Ventolin HFA) 1 puff inhalation Q6H PRN shortness of breath or wheezing 06/12/22 [History Last Taken Unknown] sertraline 100 mg tablet 100 mg PO BID 06/12/22 [History Last Taken Unknown] Allergy/AdvReac Type Severity Reaction Status Date / Time cephalexin Allergy Other Verified 09/19/22 14:20 ciprofloxacin [From Cipro] Allergy Other Verified 09/19/22 14:20 lisinopril Allergy Other Verified 09/19/22 14:20 methylprednisolone Allergy Other Verified 09/19/22 14:20 [From Medrol] nitrofurantoin Allergy Other Verified 09/19/22 14:20 [From Macrobid] Penicillins [PCN] Allergy Rash Verified 09/19/22 14:20 sulfamethoxazole Allergy Other Verified 09/19/22 14:20 [From Bactrim] trimethoprim [From Bactrim] Allergy Other Verified 09/19/22 14:20 Family History Father , age 63 Heart disease Surgical History (Updated 06/29/22 @ 13:32 by Ana Philip) H/O: hysterectomy Hx laparoscopic cholecystectomy Social History Smoking Status: Never smoker substance use type: does not use ROS ROS ED ROS Narrative Constitutional: Negative for fever, chills, weight loss, weakness Eyes: Negative for vision loss, vision change, double vision ENT: Negative for any sore throat, ear pain, congestion Cardiovascular: Negative for any chest pain, tightness, palpitations Respiratory: Negative for any cough, sputum production, hemoptysis, dyspnea, dyspnea on exertion, orthopnea Gastrointestinal: Negative for any abdominal pain, nausea, vomiting, diarrhea, constipation, blood in stool, blood in vomit : Negative for any urinary frequency, dysuria, retention, blood in urine Muscle skeletal: Negative for any muscle joint pain, stiffness, myalgias, arthralgias, neck pain, back pain. Positive right knee pain Neurological: Negative for any headache, syncope, numbness or tingling, dizziness Skin: Negative for any rashes, lumps, itching, abrasions, lacerations Psychiatric: Negative for any depression, anxiety, stress, suicidal ideation, homicidal ideation Hematologic: Negative for any easy bruising, excessive bruising, easy bleeding Allergies: Negative for any eczema, hives, rash EXAM Physical Exam Narrative Exam Narrative: Vital signs reviewed. Extremities: Patient has intact extensor mechanism to the right leg. Patient does have some pain on palpation to the anterior patella, ecchymosis, edema noted. No obvious deformity, patient does have bilateral large legs. (more content not included)... Normal [facility] Knee 4 or More Viewson 09-30 Knee 4 or More Views [facility] Imaging Services [address] [place] [address] Knee 4 or More Views MR#: [id number] Acct: [id number] Name: SAHRA BRICEÑO Rep #: [id number] : 1980 F 42 From: Farooq Davis PCP: GEOVANY Smith Status: REG ER Study: Knee 4 or More Views Date of Exam: 09/30/22 Exam# [id number] Ordering Dr: Amber Renteria MD STUDY: X-RAY - RIGHT KNEE REASON FOR EXAM: Female, 42 years old. INJURY TECHNIQUE: 3 view(s) of the knee. COMPARISON: None. FINDINGS: There is demineralization of the visualized distal femur. There is demineralization of the tibia and fibula. Normal proximal tibiofibular articulation. 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 There is moderate degenerative arthrosis of the lateral femorotibial compartment with moderate joint space narrowing. Prosthesis of the patellofemoral joint is noted showing normal alignment. The soft tissue structures are unremarkable. RAD/Knee 4 or More Views IMPRESSION: Patellar prosthesis with noted normal alignment and moderate arthrosis of the medial lateral joint space. No evidence of acute fracture. Electronically Signed: Farooq Sherwood DO at 15:41 EDT , CC: GEOVANY Kruger; Dr. Amber Renteria MD Manager Cardiac Cath: Signed Normal [facility] 36on 09-20-2022 36 Orders mailed Normal [facility] 12 Lead EKG performed by [facility] on 09-19-2022 12 Lead EKG performed by [facility] [address] [place] [address] 12 Lead EKG performed by [facility] 09/19/229 MR#: [id number] Acct: [id number] Name: SAHRA BRICEÑO Rep #: [id number] : 1980 42 From: Елена Lynn Attending Dr: DINO Cr Status: DEP AMB Ordering Dr: Елена De Jesus Date: 09/05 06/27 Location: [facility] Sex: F C Admitted: [facility]/12 Lead EKG performed by [facility] ECG Report Interpretation ----Sinus Rhythm Low voltage in precordial leads. ABNORMAL Electronically signed on 10/11/2022 at 07:25 by Ramon Seth Software Version [id number] 10/11/2226 Date Елена SUN CC: GEOVANY Kruger Date Dictated: 09/19/221418 Date Transcribed: 09/19/221418 Manager Cardiac Cath: MMM Signed Normal [facility] ADDENDUMNOTEon 09-19-2022 ADDENDUMNOTE Addended by: CHERRIE DELEON on: 09/19/2022 12:29 PM Modules accepted: Orders Normal [facility] Cardiology Visit Reporton Cardiology Visit Report [facility] [address] [place] [address] OFFICE VISIT Date of Service: 09/19/22 MR#: [id number] Acct: [id number] Name: SAHRA BRICEÑO Rep #: [id number] : 1980 Provider: DINO Dominguez Age/Sex: 42/F Location: [facility] Status: Signed HPI HPI History of Present Illness Details: 42-year-old female that presents here today for cardiovascular follow up. She presented to [facility] on 05/18/2022 for increased shortness of breath and chest discomfort. PCP did start her on oral Lasix. Patient was concerned because she did not have much cardiac output. Ultrasound for DVT was negative. She does have a strong family history of coronary artery disease. She does have a history of hypertension, asthma, glucose intolerance. While in the emergency room she did undergo a CTA because she did have an elevated D-dimer. This did not demonstrate any PE or dissection. Troponin was negative and not measurable. BNP was 6.5. On an outpatient basis she stress test, this was a treadmill tolerance test. Was not a nuclear imaging. Patient had an inability to reach maximum predicted heart rate. She is only able to walk 1 minute and 11 seconds for a total of 4.6 METS. She did have chest discomfort. Her functional capacity was significantly decreased for age. She did undergo a cardiac cath, this was normal. She still does have chest pain and SOB. She is considering gastric bypass. She does not have any palpitations. She has never been tested for sleep apnea. STOP-BANG Assessment: 1. Do you snore? y 2. Are you frequently tired during the day? y 3. Have you been observed gasping or choking while asleep? y 4. Do you have high blood pressure? n 5. BMI - greater than 35kg/m2? y 6. Age - over 50 years old? n 7. Neck Circumference - greater than 37 cm for females or 40 cm for males? y 8. Gender - male? n Total STOP-BANG score = 5 which indicates positive risk for obstructive sleep apnea (yes to 3 or more questions = high risk of sleep apnea). 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 Is patient in pain?: No Allergies cephalexin Allergy (Verified 09/19/22 14:20) Other ciprofloxacin [From Cipro] Allergy (Verified 09/19/22 14:20) Other lisinopril Allergy (Verified 09/19/22 14:20) Other methylprednisolone [From Medrol] Allergy (Verified 09/19/22 14:20) Other nitrofurantoin [From Macrobid] Allergy (Verified 09/19/22 14:20) Other Penicillins [PCN] Allergy (Verified 09/19/22 14:20) Rash sulfamethoxazole [From Bactrim] Allergy (Verified 09/19/22 14:20) Other trimethoprim [From Bactrim] Allergy (Verified 09/19/22 14:20) Other Medications budesonide-formoterol HFA 160 mcg-4.5 mcg/actuation aerosol inhaler (Symbicort) 2 puff inhalation BID 10/29/15 [History Confirmed 09/19/22] albuterol sulfate 90 mcg/actuation aerosol inhaler (Ventolin HFA) 1 puff inhalation Q6H PRN shortness of breath or wheezing 06/12/22 [History Confirmed 09/19/22] sertraline 100 mg tablet 100 mg PO BID 06/12/22 [History Confirmed 09/19/22] PFSH Medical History (Updated 09/19/22 @ 15:03 by Елена SUN, PA) Asthma COVID-19 Depression Diabetes mellitus Surgical History (Updated 06/29/22 @ 13:32 by Ana Philip) H/O: hysterectomy Hx laparoscopic cholecystectomy Family History Father , age 63 Heart disease Social History Smoking Status: Never smoker substance use type: does not use ROS Const Const: Negative for fatigue, weakness, fever(s) or headache(s) Eyes Eyes: Negative for blind spots, loss of peripheral vision or transient loss of vision ENT ENT: Negative for headache(s), dizziness, tinnitus, Nosebleed/epistaxis or balance problems Cardio Chest Pain: Yes Palpitations: Yes Edema: Bilateral Muscle aches with walking: None Resp Respiratory: Positive for SOB with activity; Negative for SOB at rest, SOB orthopnea SOB lying down or Cough GI GI: Negative nausea, vomiting, heartburn or vomiting blood/hematemesis : Negative for hematuria Musc Musc: Negative for muscle aches/ myalgia, muscle weakness, joint pain or balance problems Neuro Neuro: Negative for dizziness, lightheadedness, near syncope, syncope, orthostatic symptoms, headache(s) or weakness Chris Hematologic/Lymphatic: Negative for easy bleeding Endo (more content not included)... [facility] 36on 09-15-2022 36 Orders pended, PULM added D/T MARIAM eval, Pre op check list scanned to media, EGD order sent to ALS. [facility] 36 PLAN Encounter Diagnoses Name Primary? GERD without esophagitis Type 2 diabetes mellitus without complication, without long-term current use of insulin ([facility] ([facility] Morbid obesity with BMI of 50.0-59.9, adult ([facility]) I have recommended proceeding with the evaluation and work-up for the primary procedure as outlined below: PATIENT SUMMARY Sahra Bailey 42 y.o. female with Body mass index is 58.38 kg/m?. 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 pylori [] Negative [] Positive UGI [x] [] not ordered US Abdomen [x] [] not ordered MARIAM eval [x] [] On CPAP / Obtain settings Hematology [] [] Hypercoagulation panel Toxicology [] [] Urine drug screen [] EtOH screen Addtional [] [] Hgb A1c INITIAL CONSULTATIONS CLEARANCE / MANAGEMENT Psychology [x] Dr. Ramirez [x] Cardiology [x] [] not ordered Pulmonary [] [x] not ordered Others [] []Heme/Onc []Psychiatry []Pain mgmt PSD [] Physician supervised diet: []None []3 mos [x]6 mos Preop diet [] Preop low calory diet: []None []1 wk [x]2 wks []Ext. FINAL PRE-OP TESTING RESULTS Labwork [x] [x]Pre-op CBC [x]BMP []Serum Nicotine / Cotinine EKG [x] CXR [x] POST-OP MEDICATIONS Ulcer Ppx [] Omeprazole 20 mg PO []QD []BID Gallstone Ppx [] Ursodiol 300 mg []BID DVT Ppx [] DVT prophylaxis per final preop visit estimated risk Estimated calculated risk: % Schedule final pre-operative office visit with surgeon, pre-operative education class, and pre-operative exercise class prior to date of surgery ATTESTATION I reviewed with the patient the details of the proposed operation. The risks benefits and options were discussed. Risks included but were not limited to bleeding, infection, damage to other surrounding organs, cardio-pulmonary complications related to anesthesia, conversion from laparoscopic to and open procedure, the need for reoperative or endoscopic therapy, the potential for prolonged mechanical ventilation, and . All questions were fully answered to the patient's satisfaction and they wish to proceed with surgical intervention. A total of over 45 minute visit was spent in face to face encounter, counseling the patient, discussing the surgical/perioperative plan, record review and documentation. The patient was seen and examined independently and relevant data including a full chart rreview was performed by myself. [facility] ADDENDUMNOTEon 09-15-2022 ADDENDUMNOTE Addended by: AIDA LEES on: 09/15/2022 07:11 AM Modules accepted: Orders [facility] Progress Noteon 09-15-2022 Progress Note printed Normal [facility] Progress Note ENDOSCOPY ORDERS To be scheduled with: Dr. Bailey Patient is: Pre-op/Pre-Bariatric Surgery CPT code: EGD with biopsy- CPT 36557 Diagnosis: GERD- K21.9 If pre-op, Diet & Exercise Requirements are, and started/scheduled on 11/23/2022: 6 months Home O2: No Known Difficult Intubation: No Normal [facility] Progress Note Patient scheduled fo r EGD w BX 12/18/22 at 7:30 am MAIN ENDO mailed prep Normal [facility] Office Visiton 08-30-2022 Follow-up visit [id number] Arvin Briceño Long 1980 F Date Provider Department Center 08/30/2022 [id number] PAUL BAILEY BCC SURG None Family History Problem Relation Age of Onset Diabetes Mother Obesity Mother Hypertension Father Heart disease Father Cancer Sister Obesity Sister Obesity Maternal Grandfather Family Status - Relation Status Age at Mother Father Sister Alive Maternal Grandfather Alive Level of Service:25076 [place] OFFICE/OUTPATIENT NEW MODERATE MDM 45-59 MINUTES Reason for Visit and Comments: Surgical Consult [878] - New Surg [facility] Progress Noteon 08-30-2022 Progress Note JEAN PAUL BAILEY MD , FACS, [facility] MINIMALLY INVASIVE & METABOLIC / BARIATRIC SURGERY [facility] BARIATRIC EVALUATION - HISTORY AND PHYSICAL 08/30/2022 PATIENT: Sahra Briceño DATE OF : 1980 HISTORY OF PRESENT ILLNESS Chief Complaint: Obesity and associated conditions. Sahra Briceño is a 42 y.o. female with obesity and associated conditions who presents to the [facility] [place] for evaluation for metabolic/bariatric surgery. The patient stands Height: 5' 2 (157.5 cm) tall with a weight of Weight: (!) 319 lb 3.2 oz (145 kg) , and has a BMI of Body mass index is 58.38 kg/m?.. The patient has failed multiple attempts at non-surgical weight loss, and is now seeking surgical intervention to promote permanent and consistent weight loss. The patient suffers from several co-morbidities as a result of obesity as outlined in the past medical history. The patient denies a history of myocardia infarction, deep vein thrombosis, pulmonary embolism, renal failure, hepatic failure, stroke, and seizure. She does not smoke, and does not drink alcohol. Review of Systems Constitutional: Positive for fatigue. Negative for activity change, chills, fever and unexpected weight change. HENT: Negative for congestion. Eyes: Negative for visual disturbance. Respiratory: Positive for apnea, cough, shortness of breath and wheezing. Cardiovascular: Negative for leg swelling. Gastrointestinal: Negative for abdominal distention, abdominal pain, blood in stool, nausea and vomiting. Endocrine: Negative for cold intolerance and heat intolerance. Genitourinary: Negative for dysuria. Musculoskeletal: Positive for arthralgias, back pain and joint swelling. Negative for gait problem. Skin: Negative for color change, pallor, rash and wound. Neurological: Positive for weakness. Negative for dizziness, seizures and headaches. Hematological: Negative for adenopathy. Psychiatric/Behavioral : Positive for sleep disturbance. Negative for agitation and confusion. The patient is not nervous/anxious. PAST HISTORIES Past Medical History: Diagnosis Date Anxiety Asthma Back pain Depression RIVERO (dyspnea on exertion) GERD (gastroesophageal reflux disease) History of kidney stones Joint pain, knee Joint pain, knee Morbid obesity, unspecified obesity type (HCC) Snoring Type 2 diabetes mellitus (HCC) Past Surgical History: Procedure Laterality Date APPENDECTOMY SECTION, LOW TRANSVERSE x3 CHOLECYSTECTOMY HIP SURGERY HYSTERECTOMY tumor removal KNEE SURGERY x3 Family History Problem Relation Name Age of Onset Diabetes Mother Obesity Mother Hypertension Father Heart disease Father Cancer Sister Obesity Sister Obesity Maternal Grandfather Social History Tobacco Use Smoking status: Unknown Smokeless tobacco: Not on file Substance Use Topics Alcohol use: Not Currently @MEDCMED@ Allergies Allergen Reactions Azithromycin Penicillins Rash Childhood reaction. Cephalexin Other reaction(s): Other Ciprofloxacin Other reaction(s): Other Lisinopril Other reaction(s): Other Methylprednisolone Other reaction(s): Other Nitrofurantoin Other reaction(s): Other Oxycodone Other reaction(s): Other: See Comments Headache, dizziness Sulfamethoxazole Other reaction(s): Other Sulfamethoxazole-Trime thoprim Diphenhydramine Rash and Swelling PHYSICAL EXAM BP 106/76 Pulse 90 Temp 36.2 ?C (97.2 ?F) Resp 20 Ht 5' 2 (1.575 m) Wt (!) 319 lb 3.2 oz (145 kg) BMI 58.38 kg/m? General: This patient is awake, alert, and oriented, with normal affect and is in no apparent distress. Cardiac: Regular rate and rhythm without evidence of murmur. Respiratory: Clear to auscultation bilaterally with normal effort. Abdomen: Obese, soft, non-tender, non-distended without masses/ No evidence of abdominal hernia / Incisions consistent with previous surgeries. Head and Neck: Obese, normocephalic and atraumatic/soft and supple, no lymphadenopathy or obvious bruits. No thyroidmegaly. Extremities: No cyanosis, clubbing or edema/ No calf tenderness/No restrictions of movement, is ambulatory without assistance. Neurological: Intact x 4 extremities, normal sensation, no focal deficits notes. Skin: Skin cool, warm and dry. No rashes or lesions noted. Rectal: Deferred LABORATORY STUDIES AND IMAGING Laboratory Studies: No results for input(s): NA, K, CL, CO2, BUN, CREATININE, GLUCOSE, CALCIUM in the last 72 hours. No results for input(s): WBC, RBC, HGB, HCT, MCV, MCH, MCHC, RDW, PLT, MPV in the last 72 hours. No results for input(s): ALKPHOS, ALT, AST, PROT, BILITOT, BILIDIR, LIPASE in the last 72 hours. No lab exists for component: LABALBU Imaging Studies: ASSESSMENT Based on today's evaluation, the patient (more content not included)... Normal [facility] Progress Note [facility] SURGICAL WEIGHT LOSS MANAGEMENT PROGRAM Rooming Note - INITIAL CONSULTATION Patient: Sahra Briceño Date of : 1980 Service Date: 08/30/2022 Patient is here today to discuss the possibility of weight loss surgery. This patient is accompanied by boyfriend for the evaluation today she is interested in discussing weight loss surgery. Physician Supervised D/E: 6M Weight Metrics: Vitals BP: 106/76 Heart Rate: 90 Resp: 20 Temp: 36.2 ?C (97.2 ?F) Baseline Measures Initial Height: 5' 2 (157.5 cm) Initial Weight: 319 lb 3.2 oz (145 kg) Initial BMI: 58.38 Initial EBW: 209 lb 3.2 oz (94.9 kg) Initial Waist Cricumference: 63.5in Initial Neck Circumference: 18in Falls Risk Assessment Patient doestake medications which affect BP or mental status Patient does not have newly prescribed or changed dosage of medications within past 30 days which affect BP or mental status Patient has not fallen in the past 2 months Patient does not demonstrate unsteady gait Patient uses the following ambulatory assistive devices: none Patient is low risk for falls. If high or moderate risk, patient instructed not to ambulate independently in the Center, and cord for call light placed within reach of patient. History of Difficult Intubation: No Patient is not on home O2 Completed by: Amber Lomax MA [facility] Deprecated Hgb A1c [place] HbA1c (Bld) [Mass fraction] 6.7 % Abnormal 4.3 - 5.6 % [facility]; [facility]. Comment on above: Order Comment: Romana rodgers Type: BLOOD SPECIMEN Ordering Facility: [facility] Address: [facility] [place] [address] Result Comment: Luc [place] Diabetes Association guidelines indicate that patients with HgbA1c in the range 5.7-6.4% are at increased risk for development of diabetes, and intervention by lifestyle modification may be beneficial. HgbA1c greater or equal to 6.5% is considered diagnostic of diabetes. Performed By: #### 5 5454-3 #### [facility] CLIA [id number] [address] [place] [address] [place] HbA1c (Bld)on 08-25-2022 Average glucose Estimated from glycated hemoglobin (Bld) [Mass/Vol] 146 mg/dL Normal [facility] Comment on above: Order Comment: Romana rodgers Type: BLOOD SPECIMEN Ordering Facility: [facility] Address: [facility] [place] [address] Result Comment: eAG: (Estimated average glucose) is a calculated value from HgbA1c and is business services representative of the average blood glucose level in the last 2-3 month period. Performed By: #### 5 5454-3 #### [facility] CLIA [id number] [address] [place], [place] [address] [id number] [place] No Panel Informationon 08-25 146 mg/dL Normal [facility] Echo Complete W/ Contraston 07-06-2022 Echo Complete W/ Contrast [facility] [address] [place] [address] Echo Complete W/ Contrast 07/06/22 1401 MR#: [id number] Acct: [id number] Name: SAHRA BRICEÑO Rep #: [id number] : 1980 42 From: Ramon Seth MD Attending Dr: Dr. Ramon Seth MD Status: [facility] Ordering Dr: Ramon Seth MD Date: 07/06/22 Location: [facility] Sex: F C Admitted: Reason For Study: DYSPNEA Procedure This was a 2D Doppler, Color Flow transthoracic echocardiogram. The study was technically difficult. Due to body habitus. Exam performed in department. Left Ventricle Normal LV size. Left ventricular systolic function is normal. The estimated ejection fraction is 55 %. Stage 1 diastolic dysfunction. No regional wall motion abnormalities noted. Right Ventricle Normal RV size. Normal systolic function. Atria Normal left atrium. Normal right atrium. Mitral Valve Mitral valve not well visualized. Tricuspid Valve The tricuspid valve is not well visualized. Mild (1+) tricuspid valve insufficiency. Pulmonary artery systolic pressure is 30 mmHg. Aortic Valve The aortic valve is not well visualized. Great Vessels Normal aortic root. The pulmonary artery is normal size. Normal inferior vena cava. Pericardium/Pleural No pericardial effusion. Medication 22 gauge I.V. with prn adaptor inserted into right arm. Diluted definity 2.5ml given slow IV push to enhance endocardial definition. MMode/2D Measurements Calculations LVIDd: 5.2 cm IVSd: 0.95 cm Ao root diam: 3.3 cm LVIDs: 2.8 cm LVPWd: 0.95 cm RVDd: 2.9 cm FS: 45.9 % LAV(MOD-bp): 51.0 ml LA A4 area: 16.9 cm2 LA dimension(2D): 4.2 cm LAV(MOD-bp) Indexed: 21.9 ml/m2 LAV(MOD-sp2): 47.6 ml LAV(MOD-sp4): 47.3 ml RA A4 area: 12.4 cm2 Time Measurements MV dec time: 0.18 sec Doppler Measurements Calculations MV E max bari: 77.0 cm/sec Lat Peak E' Bari: 12.3 cm/sec Med Peak E' Bari: 11.6 cm/sec MV A max bari: 86.8 cm/sec E/E' lat: 6.2 E/E' med: 6.7 MV E/A: 0.89 MV dec slope: 433.5 cm/sec2 Ao V2 max: 173.6 cm/sec LV V1 max: 121.1 cm/sec Ao max P.1 mmHg LV V1 max P.9 mmHg Ao V2 mean: 123.5 cm/sec LV V1 mean P.4 mmHg Ao mean P.0 mmHg LV V1 mean: 85.7 cm/sec Ao V2 VTI: 36.3 cm LV V1 VTI: 22.7 cm AV (velocity ratio): 0.63 PA V2 max: 102.0 cm/sec TR max bari: 251.4 cm/sec PA V2 mean: 72.6 cm/sec TR max P.3 mmHg ECHO/Echo Complete W/ Contrast Interpretation Summary Normal LV size. Left ventricular systolic function is normal. The estimated ejection fraction is 55 %. Stage 1 diastolic dysfunction. Contrast injection was performed. Ordering Physician: Ramon Seth Referring Physician: Jessica Kruger Performed By: Lainey Wood, EMRE, RVT 07/10/22 0950 Date Ramon Seth MD CC: GOEVANY Kruger; Dr. Ramon Seth MD Date Dictated: 07/06/22 1401 Date Transcribed: 07/10/22 0950 Manager Cardiac Cath: Signed Normal [facility] Cardiac Cath Diagnosticon Cardiac Cath Diagnostic [facility] Imaging Services [address] [place] [address] Cardiac Cath Diagnostic MR#: [id number] Acct: [id number] Name: SAHRA BRICEÑO Rep #: [id number] : 1980 42 From: Ramon Seth MD PCP: GEOVANY Smith [place] [facility] [place] Patient Name: SAHRA BRICEÑO Study Date: 06/30/2022 Performing: Ramon Seth MD Ht: 62 inches 157.48 cm : 1980 Wt: 317.99 lbs 144.24 kg Age: 42 Gender: female BSA: 2.33 PROCEDURE(S) PERFORMED DC02-(22015)[facility] CLINICAL PROFILE AND INDICATIONS Indications: Other Heart Failure: None Stress/Imaging Stress/Image Study Performed: No CAD Presentations: Other: sob CONCLUSIONS Normal coronary arteries RECOMMENDATIONS Medical therapy DESCRIPTION OF PROCEDURE The patient arrived to the procedure lab. The risks and benefits of the procedure as well as a full description of our services here and current unavailability of surgical backup were fully explained to the patient and/or their significant other prior to the catheterization. The Timeout was completed, verifying the correct patient and procedure. The patient's procedural site was prepped and draped in the usual fashion. Local anesthetic was given subcutaneously to right radial region with Lidocaine 2%. Using a modified Seldinger technique, arterial access was obtained via the right radial artery, a 6Fr sheath was inserted. Right Coronary Artery selective angiography was then performed in multiple views using a 5 Fr. 4.0 [place] catheter. Left Coronary Artery selective angiography was performed in multiple views using a 5 Fr. JL3.5 catheter.The arterial sheath was pulled and a TR Band was applied for hemostasis. 10cc of air CORONARY ANGIOGRAPHY DOMINANCE: Right Dominant LEFT HEART ASSESSMENT Left Ventricular Ejection Fraction: by Echo 55 % Normal LV wall motion. Normal LV wall motion LEFT MAIN: Angiographically normal LEFT ANTERIOR DESCENDING ARTERY: Angiographically normal CIRCUMFLEX ARTERY: Angiographically normal RIGHT CORONARY ARTERY: Angiographically normal COMPLICATIONS No Complications PROCEDURE MEDICATIONS Fentanyl 50 mcg IV Versed 1 mg IV Versed 1 mg IV Versed 1 mg IV Fentanyl 25 mcg IV Fentanyl 25 mcg IV Fentanyl 25 mcg IV Oxygen: 2 L/min via nasal cannula Aspirin (325mg) 1 Tabs PO @ 06/30/2022 07:07:53 Heparin given IA 06/30/2022 08:34:21 Verapamil 2.5mg, Ntg 100mcgs, 3000 units of Heparin given IA 06/30/2022 08:34:21 SUMMARY OF HEMODYNAMIC DATA Time AIR REST ECG 07:06:32 Art 98/57 (71) 08:39:29 AO 124/77 (99) SA 09:02:14 LV 130/7, 16 09:30:12 LV 139/15, 30 09:30:42 LV 141/20, 32 09:31:10 Signed By Ramon Seth MD On 06/30/2022 09:43:18 Ramon Seth MD 06/30/22 0944 Date Ramon Oconnor Signature: Date (if indicated) CC: GEOVANY Kruger; Dr. Ramon Seth MD Date Dictated: 06/30/22825 Date Transcribed: 06/30/22942 Manager Cardiac Cath: CO Signed Normal [facility] Absolute lymphocyte countOrd ered By: Елена De Jesus on 06-12-2022 Lymphocytes Auto (Unsp spec) [#/Vol] 2.63 10*3/uL 0.83-4.51 [facility] Basic Metabolic Profile (BMP )on 06-12-2022 BUN/CRE 13.8 RATIO Normal 10-20 [facility] Comment on above: Performed By: #### L 300.4310, L500.2500, L500.4100, L100.0100, L300.3900 ####[facility] [address] [place], [place], [address] CA,Total 9.1 mg/dL Normal 8.5-10.1 [facility] Comment on above: Performed By: #### L 300.4310, L500.2500, L500.4100, L100.0100, L300.3900 ####[facility] [address] [place], [address] Chloride [Moles/Vol] 106 mmol/L Normal 98-107 [facility] Comment on above: Performed By: #### L 300.4310, L500.2500, L500.4100, L100.0100, L300.3900 ####[facility] [address] [place], [address] CO2 [Moles/Vol] 27.0 mmol/L Normal 21.0-32.0 [facility] Comment on above: Performed By: #### L 300.4310, L500.2500, L500.4100, L100.0100, L300.3900 ####[facility] [address] [facility] [address] Creatinine [Mass/Vol] 0.72 mg/dL Normal 0.55-1.02 [facility] Comment on above: Result Comment: The validity of the calculated GFR GFRAA in patients over 70 years has not been determined. Clinical correlation is essential. Performed By: #### L 300.4310, L500.2500, L500.4100, L100.0100, L300.3900 ####[facility] [address] [place], [address] EST GFR - AA 113 mL/min Normal >60 [facility] Comment on above: Result Comment: Afri can Palestinian GFR Calc Performed By: #### L 300.4310, L500.2500, L500.4100, L100.0100, L300.3900 ####[facility] [address] [place] [id number] GAP 7 Normal 5-15 [facility] Comment on above: Performed By: #### L 300.4310, L500.2500, L500.4100, L100.0100, L300.3900 ####[facility] [address] [place], [address] GFR/1.73 sq M.predicted among non-blacks MDRD (S/P/Bld) [Vol rate/Area] 93 mL/min/{1.73_m2} Normal >60 [facility] Comment on above: Result Comment: Non- GFR Calc Performed By: #### L 300.4310, L500.2500, L500.4100, L100.0100, L300.3900 ####[facility] [address] [place], [address] Glucose [Mass/Vol] 120 mg/dL High 74-106 [facility] Comment on above: Result Comment: Fast ing Glucose result from 100 to 125 mg/dL suggests IMPAIRED HOMEOSTASIS per A.D.A. criteria. Performed By: #### L 300.4310, L500.2500, L500.4100, L100.0100, L300.3900 ####[facility] [address] [place], [address] Potassium [Moles/Vol] 4.1 mmol/L Normal 3.5-5.1 [facility] Comment on above: Performed By: #### L 300.4310, L500.2500, L500.4100, L100.0100, L300.3900 ####[facility] [address] [place], [address] Sodium [Moles/Vol] 140 mmol/L Normal 136-145 [facility] Comment on above: Performed By: #### L 300.4310, L500.2500, L500.4100, L100.0100, L300.3900 ####[facility] [address] [place], [address] Urea nitrogen [Mass/Vol] 10 mg/dL Normal 7-18 [facility] Comment on above: Performed By: #### L 300.4310, L500.2500, L500.4100, L100.0100, L300.3900 ####[facility] [address] [place], [address] Basophil percentageOrdered B y: Елена De Jesus on 06-12-2022 Basophils/100 WBC (Bld) 0.5 % 0-1 [facility] Chloride [Moles/Vol] 106 mmol/L 98-107 [facility] Cholesterol [Mass/Vol] 181 mg/dL <200 [facility] Comment on above: <200 mg/dL Desirable 200-240 mg/dL Borderline >240 mg/dL High Risk Eosinophils/100 WBC (Bld) 2.2 % 0-5 [facility] Glucose [Mass/Vol] 120 mg/dL 74-106 [facility] Comment on above: Fasting Glucose resu lt from 100 to 125 mg/dL suggests IMPAIRED HOMEOSTASIS per A.D.A. criteria. Neutrophils (Bld) [#/Vol] 5.1 10*3/uL 2.0-7.7 [facility] Neutrophils/100 WBC (Bld) 58.1 % 47-70 [facility] Potassium [Moles/Vol] 4.1 mmol/L 3.5-5.1 [facility] Sodium [Moles/Vol] 140 mmol/L 136-145 [facility] Triglyceride [Mass/Vol] 328 mg/dL <199 [facility] Comment on above: The drugs N-Acetylcy steine and Metamizole may falsely depress this assay.Serum Triglycerides Reference Interval Normal <150 mg/dL Borderline high 150 - 199 mg/dL High 200 - 499 mg/dL Very High > or = 500 mg/dL WBC (Bld) [#/Vol] 8.8 10*3/uL 4.4-11.0 [facility] Blood erythrocytes count (nu mber/volume)Ordered By: Елена De Jesus on 06-12-2022 RBC (Bld) [#/Vol] 4.64 10*6/uL 4.2-5.4 [facility] Blood hemoglobin measurement (mass/volume)Ordered By: Елена De Jesus on 06-12-2022 Hemoglobin (Bld) [Mass/Vol] 13.4 g/dL 12.0-15.0 [facility] Blood lymphocytes/100 leukoc ytesOrdered By: Елена De Jesus on 06-12-2022 Lymphocytes/100 WBC (Bld) 29.9 % 19-41 [facility] Blood monocytes/100 leukocyt esOrdered By: Елена De Jesus on 06-12-2022 Monocytes/100 WBC (Bld) 9.0 % 0-10 [facility] Blood platelet mean volumeOr dered By: Елена De Jesus on 06-12-2022 Platelet mean volume (Bld) [Entitic vol] 9.8 fL 6.2-12.0 [facility] CBC W/Diff, Automatedon 05-0 Absolute Lymph 2.63 X10 3/uL Normal 0.83-4.51 [facility] Comment on above: Performed By: #### L 300.4310, L500.2500, L500.4100, L100.0100, L300.3900 #### [facility] [address] [place], [address] Absolute Neut 5.1 X10 3/uL Normal 2.0-7.7 [facility] Comment on above: Performed By: #### L 300.4310, L500.2500, L500.4100, L100.0100, L300.3900 #### [facility] [address] [place], [address] Basophils/100 WBC (Bld) 0.5 % Normal 0-1 [facility] Comment on above: Performed By: #### L 300.4310, L500.2500, L500.4100, L100.0100, L300.3900 #### [facility] [address] [place], [address] Eosinophils/100 WBC (Bld) 2.2 % Normal 0-5 [facility] Comment on above: Performed By: #### L 300.4310, L500.2500, L500.4100, L100.0100, L300.3900 #### [facility] [address] [place], [address] Erythrocyte distribution width (RBC) [Ratio] 13.8 % Normal 11.6-14.6 [facility] Comment on above: Performed By: #### L 300.4310, L500.2500, L500.4100, L100.0100, L300.3900 #### [facility] [address] [place], [address] Hematocrit (Bld) [Volume fraction] 39.2 % Normal 37-47 [facility] Comment on above: Performed By: #### L 300.4310, L500.2500, L500.4100, L100.0100, L300.3900 #### [facility] [address] [place], [address] Hemoglobin (Bld) [Mass/Vol] 13.4 g/dL Normal 12.0-15.0 [facility] Comment on above: Performed By: #### L 300.4310, L500.2500, L500.4100, L100.0100, L300.3900 #### [facility] [address] [place], [address] IG% 0.300 Normal 0.0-0.9 [facility] Comment on above: Result Comment: IG% - Immature Granulocytes (promyelocytes, myelocytes and metamyelocytes) > 1% indicates that a LEFT SHIFT is Present. Performed By: #### L 300.4310, L500.2500, L500.4100, L100.0100, L300.3900 #### [facility] [address] [place], [address] Lymphocytes/100 WBC (Bld) 29.9 % Normal 19-41 [facility] Comment on above: Performed By: #### L 300.4310, L500.2500, L500.4100, L100.0100, L300.3900 #### [facility] [address] [place], [address] MCH (RBC) [Entitic mass] 28.9 pg Normal 27.0-32.0 [facility] Comment on above: Performed By: #### L 300.4310, L500.2500, L500.4100, L100.0100, L300.3900 #### [facility] [address] [place], [address] MCHC (RBC) [Mass/Vol] 34.2 g/dL Normal 32-36 [facility] Comment on above: Performed By: #### L 300.4310, L500.2500, L500.4100, L100.0100, L300.3900 #### [facility] [address] [place], [address] MCV (RBC) [Entitic vol] 84.5 fL Normal 81-99 [facility] Comment on above: Performed By: #### L 300.4310, L500.2500, L500.4100, L100.0100, L300.3900 #### [facility] [address] [place], [address] Monocytes/100 WBC (Bld) 9.0 % Normal 0-10 [facility] Comment on above: Performed By: #### L 300.4310, L500.2500, L500.4100, L100.0100, L300.3900 #### [facility] [address] [place], [address] Neutrophils/100 WBC (Bld) 58.1 % Normal 47-70 [facility] Comment on above: Performed By: #### L 300.4310, L500.2500, L500.4100, L100.0100, L300.3900 #### [facility] [address] [place], [address] Nucleated RBC (Bld) [#/Vol] 0 10*3/uL Normal 0-5 [facility] Comment on above: Performed By: #### L 300.4310, L500.2500, L500.4100, L100.0100, L300.3900 #### [facility] [address] [place], [address] Platelet mean volume (Bld) [Entitic vol] 9.8 fL Normal 6.2-12.0 [facility] Comment on above: Performed By: #### L 300.4310, L500.2500, L500.4100, L100.0100, L300.3900 #### [facility] [address] [place], [address] Platelets (Bld) [#/Vol] 277 10*3/uL Normal 150-450 [facility] Comment on above: Performed By: #### L 300.4310, L500.2500, L500.4100, L100.0100, L300.3900 #### [facility] [address] [place], [address] RBC (Bld) [#/Vol] 4.64 10*6/uL Normal 4.2-5.4 [facility] Comment on above: Performed By: #### L 300.4310, L500.2500, L500.4100, L100.0100, L300.3900 #### [facility] [address] [place], [address] RDW SD 41.5 fl Normal 35.1-43.9 [facility] Comment on above: Performed By: #### L 300.4310, L500.2500, L500.4100, L100.0100, L300.3900 #### [facility] [address] [place], [address] WBC (Bld) [#/Vol] 8.8 10*3/uL Normal 4.4-11.0 [facility] Comment on above: Performed By: #### L 300.4310, L500.2500, L500.4100, L100.0100, L300.3900 #### [facility] [address] [place], [address] Cardiology Visit Reporton Cardiology Visit Report [facility] [address] [place] [address] OFFICE VISIT Date of Service: 06/12/22 MR#: [id number] Acct: [id number] Name: SAHRA BRICEÑO Rep #: [id number] : 1980 Provider: DINO Kinney Age/Sex: 42/F Location: [facility] Status: Signed HPI HPI History of Present Illness Details: 42-year-old female that presents here today for cardiovascular consultation for chest pain and shortness of breath. She presented to [facility] on 05/18/2022 for increased shortness of breath and chest discomfort. PCP did start her on oral Lasix. Patient was concerned because she did not have much cardiac output. Ultrasound for DVT was negative. She does have a strong family history of coronary artery disease. She does have a history of hypertension, asthma, glucose intolerance. While in the emergency room she did undergo a CTA because she did have an elevated D-dimer. This did not demonstrate any PE or dissection. Troponin was negative and not measurable. BNP was 6.5. On an outpatient basis she stress test, this was a treadmill tolerance test. Was not a nuclear imaging. Patient had an inability to reach maximum predicted heart rate. She is only able to walk 1 minute and 11 seconds for a total of 4.6 METS. She did have chest discomfort. Her functional capacity was significantly decreased for age. Pt notes that she is very SOB with minimal exertion. She notes that she feels that her heart is racing with activity. This has been going on for a while. She also note that she is wheezing when she is SOB. She does have chest discomfort that she describes as a brick on her chest. It radiates done her arm. She does positional lightheadedness. She does not sleep well. She has never been tested for sleep apnea. 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 Is patient in pain?: No Allergies cephalexin Allergy (Verified 06/12/22 15:46) Other ciprofloxacin [From Cipro] Allergy (Verified 06/12/22 15:46) Other lisinopril Allergy (Verified 06/12/22 15:46) Other methylprednisolone [From Medrol] Allergy (Verified 06/12/22 15:46) Other nitrofurantoin [From Macrobid] Allergy (Verified 06/12/22 15:46) Other Penicillins [PCN] Allergy (Verified 06/12/22 15:46) Rash sulfamethoxazole [From Bactrim] Allergy (Verified 06/12/22 15:46) Other trimethoprim [From Bactrim] Allergy (Verified 06/12/22 15:46) Other Medications budesonide-formoterol HFA 160 mcg-4.5 mcg/actuation aerosol inhaler (Symbicort) 2 puff inhalation BID 10/29/15 [History Confirmed 06/12/22] albuterol sulfate 90 mcg/actuation aerosol inhaler (Ventolin HFA) 1 puff inhalation Q6H PRN shortness of breath or wheezing 06/12/22 [History Confirmed 06/12/22] sertraline 100 mg tablet 100 mg PO BID 06/12/22 [History Confirmed 06/12/22] Nurse's Note: Patient does not know medications. PFSH Medical History (Updated 06/12/22 @ 16:14 by Елена SUN PA) Asthma COVID-19 Depression Diabetes mellitus Surgical History (Updated 06/12/22 @ 15:46 by Елена SUN, PA) Hx laparoscopic cholecystectomy Family History (Updated 06/12/22 @ 16:03 by Елена SUN, PA) Father , age 63 Heart disease Social History Smoking Status: Never smoker substance use type: does not use ROS Const Const: Negative for fatigue, weakness, fever(s) or headache(s) Eyes Eyes: Negative for blind spots, loss of peripheral vision or transient loss of vision ENT ENT: Negative for headache(s), dizziness, tinnitus, Nosebleed/epistaxis or balance problems Cardio Chest Pain: Yes Palpitations: Yes Edema: Bilateral Muscle aches with walking: None Resp Respiratory: Positive for SOB with activity; Negative for SOB at rest, SOB orthopnea SOB lying down or Cough GI GI: Negative nausea, vomiting, heartburn or vomiting blood/hematemesis : Negative for hematuria Musc Musc: Negative for muscle aches/ myalgia, muscle weakness, joint pain or balance problems Neuro Neuro: Negative for dizziness, lightheadedness, near syncope, syncope, orthostatic symptoms, headache(s) or weakness Chris Hematologic/Lymphatic: Negative for easy bleeding Endo Endo: Negative for fatigue Cardiology Exam Const Appearance: cooperative, no acute distress and well developed Nutritional Appearance: obese Orientation: alert, awake and oriented x3 Head Head: normocephalic and (more content not included)... Normal [facility] Determination of erythrocyte mean corpuscular volume (MCV)Ordered By: Елена De Jesus on 06-12-2022 MCV (RBC) [Entitic vol] 84.5 fL 81-99 [facility] Hematocrit Auto (Bld) [Volum e fraction]Ordered By: Елена De Jesus on 06-12-2022 Hematocrit (Bld) [Volume fraction] 39.2 % 37-47 [facility] INR in Blood by Coagulation assayOrdered By: Елена De Jesus on 06-12-2022 INR Coag (Bld) [Relative time] 1.0 {INR} [facility] Laboratory - Chemistry and C hemistry - challengeOrdered By: Елена De Jesus on 06-12-2022 CO2 [Moles/Vol] 27.0 mmol/L 21.0-32.0 [facility] Urea nitrogen/Creatinine [Mass ratio] 13.8 mg/mg 10-20 [facility] - CoagulationOrde red By: Елена De Jesus on 06-12-2022 aPTT Coag (Bld) [Time] 26.7 s 24.1-36.2 [facility] PT Coag (PPP) [Time] 13.0 s 11.7-14.9 [facility] - Hematology and Cell countsOrdered By: Елена De Jesus on 06-12-2022 Erythrocyte distribution width (RBC) [Entitic vol] 41.5 fL 35.1-43.9 [facility] Erythrocyte distribution width (RBC) [Ratio] 13.8 % 11.6-14.6 [facility] Immature granulocytes/100 WBC (Bld) 0.300 % 0.0-0.9 [facility] Comment on above: IG% - Immature Granu locytes (promyelocytes, myelocytes and metamyelocytes) > 1% indicates that a LEFT SHIFT is Present. MCH (RBC) [Entitic mass] 28.9 pg 27.0-32.0 [facility] Nucleated RBC/100 WBC (Bld) [Ratio] 0 % 0-5 [facility] Lipid Profileon 06-12-2022 Cholesterol [Mass/Vol] 181 mg/dL Normal 200 [facility] Comment on above: Result Comment: <200 mg/dL Desirable 200-240 mg/dL Borderline >240 mg/dL High Risk Performed By: #### L 300.4310, L500.2500, L500.4100, L100.0100, L300.3900 ####[facility] [address] [place], [address] Cholesterol in HDL [Mass/Vol] 50 mg/dL Normal [facility] Comment on above: Result Comment: The drugs N-Acetylcysteine and Metamizole may falsely depress this assay. Reference Range HDL <40 mg/dL Low HDL Cholesterol HDL >or= 60 mg/dL High HDL Cholesterol Performed By: #### L 300.4310, L500.2500, L500.4100, L100.0100, L300.3900 ####[facility] [address] [place], [address] Cholesterol in LDL [Mass/Vol] 65 mg/dL Normal 0-130 [facility] Comment on above: Performed By: #### L 300.4310, L500.2500, L500.4100, L100.0100, L300.3900 ####[facility] [address] [place], [place], [id number] Cholesterol in VLDL [Mass/Vol] 66 mg/dL High 5-40 [facility] Comment on above: Performed By: #### L 300.4310, L500.2500, L500.4100, L100.0100, L300.3900 ####[facility] [address] [place], [address] Triglyceride [Mass/Vol] 328 mg/dL High [facility] Comment on above: Result Comment: The drugs N-Acetylcysteine and Metamizole may falsely depress this assay. Serum Triglycerides Reference Interval Normal <150 mg/dL Borderline high 150 - 199 mg/dL High 200 - 499 mg/dL Very High > or = 500 mg/dL Performed By: #### L 300.4310, L500.2500, L500.4100, L100.0100, L300.3900 ####[facility] [address] [place], [place], [id number] MCHC Auto (RBC) [Mass/Vol]Or dered By: Елена De Jesus on 06-12-2022 MCHC (RBC) [Mass/Vol] 34.2 g/dL 32-36 [facility] No Panel InformationOrdered By: Елена De Jesus on 06-12-2022 Estimated GFR (MDRD) Amer 113 mL/min >60 [facility] Comment on above: GFR Calc Estimated GFR (MDRD) Non-Af Amer 93 mL/min >60 [facility] Comment on above: Non- GFR Calc No Panel Informationon 06-12 8.8 K/mm3 Normal 4.4 - 11.0 K/mm3 [facility] Work Phone: 4.64 {M/mm3} Normal 4.2 - 5.4 {M/mm3} [facility] Work Phone: 13.4 g/dL Normal 12.0 - 15.0 g/dL [facility].; [facility] Work Phone: 39.2 Normal 37 - 47 [facility], [facility].; [facility] Work Phone: 84.5 fL Normal 81 - 99 fL [facility] Work Phone: 28.9 pg Normal 27.0 - 32.0 pg [facility], [facility].; [facility] Work Phone: 34.2 g/dL Normal 32 - 36 g/dL [facility], [facility].; [facility] Work Phone: 13.8 Normal 11.6 - 14.6 [facility] Work Phone: 41.5 fL Normal 35.1 - 43.9 fL [facility] Work Phone: 277 K/mm3 Normal 150 - 450 K/mm3 [facility], [facility].; [facility] Work Phone: 9.8 fL Normal 6.2 - 12.0 fL [facility] Work Phone: 58.1 Normal 47 - 70 [facility], [facility].; [facility] Work Phone: 29.9 Normal 19 - 41 [facility] Work Phone: 9.0 Normal 0 - 10 [facility] Work Phone: 2.2 Normal 0 - 5 [facility], [facility]. Work Phone: 0.5 Normal 0 - 1 [facility], [facility].; [facility], [facility]. Work Phone: 0.300 Normal 0.0 - 0.9 [facility] Work Phone: 5.1 {X10_3/uL} Normal 2.0 - 7.7 {X10_3/uL} [facility] Work Phone: 2.63 {X10_3/uL} Normal 0.83 - 4.51 {X10_3/uL} [facility] Work Phone: 0 Normal 0 - 5 [facility].; [facility] Work Phone: 13.0 s Normal 11.7 - 14.9 s [facility].; [facility], [facility]. Work Phone: 1.0 Normal [facility].; [facility] Work Phone: 26.7 s Normal 24.1 - 36.2 s [facility].; [facility] Work Phone: 120 mg/dL Abnormal 74 - 106 mg/dL [facility].; [facility] Work Phone: 10 mg/dL Normal 7 - 18 mg/dL [facility].; [facility] Work Phone: 0.72 mg/dL Normal 0.55 - 1.02 mg/dL [facility].; [facility], [facility]. Work Phone: 93 mL/min Normal [facility].; [facility] Work Phone: 113 mL/min Normal [facility].; [facility], [facility]. Work Phone: 13.8 {RATIO} Normal 10 - 20 {RATIO} [facility], [facility].; [facility], [facility]. Work Phone: 9.1 mg/dL Normal 8.5 - 10.1 mg/dL [facility].; [facility], [facility]. Work Phone: 140 mmol/L Normal 136 - 145 mmol/L [facility].; [facility], [facility]. Work Phone: 4.1 mmol/L Normal 3.5 - 5.1 mmol/L [facility].; [facility], [facility]. Work Phone: 106 mmol/L Normal 98 - 107 mmol/L [facility].; [facility], [facility]. Work Phone: 27.0 mmol/L Normal 21.0 - 32.0 mmol/L [facility].; [facility], [facility]. Work Phone: 7 Normal 5 - 15 [facility].; [facility] Work Phone: 181 mg/dL Normal [facility].; [facility], [facility]. Work Phone: 328 mg/dL Abnormal [facility].; [facility], [facility]. Work Phone: 50 mg/dL Normal [facility], [facility].; [facility], [facility]. Work Phone: 65 mg/dL Normal 0 - 130 mg/dL [facility] Work Phone: 66 mg/dL Abnormal 5 - 40 mg/dL [facility]; [facility] Work Phone: Partial Thromboplast Timeon 06-12-2022 aPTT Coag (Bld) [Time] 26.7 s Normal 24.1-36.2 [facility] Comment on above: Performed By: #### L 300.4310, L500.2500, L500.4100, L100.0100, L300.3900 ####[facility] [address] [place], [place], [id number] Platelets bldOrdered By: Ross De Jesus on 06-12-2022 Platelets (Bld) [#/Vol] 277 10*3/uL 150-450 [facility] Prothrombin Time w/INRon INR Coag (PPP) [Relative time] 1.0 {INR} Normal [facility] Comment on above: Performed By: #### L 300.4310, L500.2500, L500.4100, L100.0100, L300.3900 ####[facility] [address] [place], [place], [id number] PT Coag (PPP) [Time] 13.0 s Normal 11.7-14.9 [facility] Comment on above: Performed By: #### L 300.4310, L500.2500, L500.4100, L100.0100, L300.3900 ####[facility] [address] [place], [place], [id number] Serum or plasma calcium kelvin urement (mass/volume)Ordered By: Елена De Jesus on 06-12-2022 Calcium [Mass/Vol] 9.1 mg/dL 8.5-10.1 [facility] Serum or plasma cholesterol in HDL measurement (mass/volume)Ordered By: Елена De Jesus on 06-12-2022 Cholesterol in HDL [Mass/Vol] 50 mg/dL >40 [facility] Comment on above: The drugs N-Acetylcy steine and Metamizole may falsely depress this assay. Reference Range HDL <40 mg/dL Low HDL Cholesterol HDL >or= 60 mg/dL High HDL Cholesterol Serum or plasma cholesterol in VLDL measurement (mass/volume)Ordered By: Елена De Jesus on 06-12-2022 Cholesterol in VLDL [Mass/Vol] 66 mg/dL 5-40 [facility] Serum or plasma creatinine m easurement (mass/volume)Ordered By: Елена De Jesus on 06-12-2022 Creatinine [Mass/Vol] 0.72 mg/dL 0.55-1.02 [facility] Comment on above: The validity of the calculated GFR & GFRAA in patients over 70 years has not been determined. Clinical correlation is essential. Serum or plasma low density lipoprotein (LDL) cholesterol measurement (mass/volume)Ordered By: Елена De Jesus on 06-12-2022 Cholesterol in LDL [Mass/Vol] 65 mg/dL 0-130 [facility] Serum or plasma urea nitroge n measurement (mass/volume)Ordered By: Елена De Jesus on 06-12-2022 Urea nitrogen [Mass/Vol] 10 mg/dL 7-18 [facility] Thin prep Papanicolaou smear with manual screeningOrdered By: Елена De Jesus on 06-12-2022 Thin prep Papanicolaou smear with manual screening 7 5-15 [facility] Stress Reporton 06-03-2022 Stress Report [facility] [address] [place] [address] MR#: [id number] Acct: [id number] Name: SAHRA BRICEÑO Rep #: [id number] : 1980 42 From: Isaak Clemente MD Primary Care: GEOVANY Smith Status: REG CLI Referring Dr: Jessica Kruger NP UROLOGY PHYSICIAN-C Sex: F C Stress Test Report Date: 06/02/2022 Procedure: Exercise tolerance test Indications: Chest pain, dyspnea Consent: Per the patient Procedure: The patient exercised on a Usman protocol for 1 minute and 11 seconds achieving a peak heart rate of 144 bpm (81% predicted maximal heart rate) with a peak blood pressure 190/72 mmHg and a peak MET capacity of approximately 4.6 MET's. The baseline ECG demonstrated normal sinus rhythm. The peak exercise ECG demonstrated no significant ischemic changes. [There were no cardiac dysrhythmias pretest, during exercise, or recovery]. The functional capacity was considered significantly decreased for age. The patient had chest pressure and shortness of breath with exercise. The examination was discontinued secondary to severe shortness of breath, chest pressure. Impression: 1. Inability to reach 85% of maximal age-predicted heart rate decreases the sensitivity of this test 2. Stress test is positive for exercise-induced chest pain. 3. Stress test test is negative for exercise-induced EKG changes of ischemia. 4. Functional capacity is significantly decreased for age This note was generated with Mobiscopeation software. It may contain incorrect words, spelling, and punctuation that were not noted in checking the note before signing. 06/03/22 1554 Date Isaak Clemente MD CC: GEOVANY Kruger Date Dictated: 06/03/221548 Date Transcribed: 06/03/221548 Manager Cardiac Cath: MERCED Signed Normal [facility] 12 Lead EKGon 05-18-2022 12 Lead EKG [facility] Cardiovascular Services [address] [place] [address] 12 Lead EKG 05/18/22 1626 MR#: [id number] Acct: [id number] Name: SAHRA BRICEÑO Rep #: [id number] : 1980 42 From: Ed Hameed MD Attending Dr: Status: DEP ER Ordering Dr: Tito Alexander MD Date: 05/18/22 Location: ED Sex: F C Admitted: Test Reason : SOB Blood Pressure : / mmHG Vent. Rate : 095 BPM Atrial Rate : 095 BPM P-R Int : 140 ms QRS Dur : 080 ms QT Int : 370 ms P-R-T Axes : 063 035 036 degrees QTc Int : 464 ms Normal sinus rhythm Nonspecific ST abnormality Abnormal ECG Confirmed by ED HAMEED ([id number]), subeditor AYAN SHETTY ([id number]) on 05/23/2022 7:41:11 AM Referred By: TL Confirmed By:ED HAMEED 05/23/22 0741 Date Ed Hameed MD CC: GEOVANY Kruger; Dr. Tito Alexander MD Signed Normal [facility] Absolute lymphocyte countOrd ered By: Dr. Alexander on 05-18-2022 Lymphocytes Auto (Unsp spec) [#/Vol] 2.23 10*3/uL 0.83-4.51 [facility] BNP,B-Type NATRIURETIC PEPTI Vincenzo 05-18-2022 Natriuretic peptide B (Bld) [Mass/Vol] 6.5 pg/mL Normal 0-100 [facility] Comment on above: Performed By: #### L 503.6620, L300.8000, L500.2500, L100.0100, L501.4020 ####[facility] [address] [place], [place], [address] Basic Metabolic Profile (BMP )on 05-18-2022 BUN/CRE 18.0 RATIO Normal 10-20 [facility] Comment on above: Order Comment: 'TROP ' Serial specimen #1, #2 or #3: 1 Performed By: #### L 503.6620, L300.8000, L500.2500, L100.0100, L501.4020 ####[facility] [address] [place], [address] CA,Total 9.0 mg/dL Normal 8.5-10.1 [facility] Comment on above: Order Comment: 'TROP ' Serial specimen #1, #2 or #3: 1 Performed By: #### L 503.6620, L300.8000, L500.2500, L100.0100, L501.4020 ####[facility] [address] [place], [address] Chloride [Moles/Vol] 106 mmol/L Normal 98-107 [facility] Comment on above: Order Comment: 'TROP ' Serial specimen #1, #2 or #3: 1 Performed By: #### L 503.6620, L300.8000, L500.2500, L100.0100, L501.4020 ####[facility] [address] [place], [address] CO2 [Moles/Vol] 25.0 mmol/L Normal 21.0-32.0 [facility] Comment on above: Order Comment: 'TROP ' Serial specimen #1, #2 or #3: 1 Performed By: #### L 503.6620, L300.8000, L500.2500, L100.0100, L501.4020 ####[facility] [address] [place], [address] Creatinine [Mass/Vol] 0.78 mg/dL Normal 0.55-1.02 [facility] Comment on above: Order Comment: 'TROP ' Serial specimen #1, #2 or #3: 1 Result Comment: The validity of the calculated GFR GFRAA in patients over 70 years has not been determined. Clinical correlation is essential. Performed By: #### L 503.6620, L300.8000, L500.2500, L100.0100, L501.4020 ####[facility] [address] [place], [address] ECRCL 73.55 ml/min Normal [facility] Comment on above: Order Comment: 'TROP ' Serial specimen #1, #2 or #3: 1 Performed By: #### L 503.6620, L300.8000, L500.2500, L100.0100, L501.4020 ####[facility] [address] [place], [address] EST GFR - AA 104 mL/min Normal >60 [facility] Comment on above: Order Comment: 'TROP ' Serial specimen #1, #2 or #3: 1 Result Comment: Afri can Palestinian GFR Calc Performed By: #### L 503.6620, L300.8000, L500.2500, L100.0100, L501.4020 ####[facility] [address] [place], [address] GAP 4 Low 5-15 [facility] Comment on above: Order Comment: 'TROP ' Serial specimen #1, #2 or #3: 1 Performed By: #### L 503.6620, L300.8000, L500.2500, L100.0100, L501.4020 ####[facility] [address] [place], [address] GFR/1.73 sq M.predicted among non-blacks MDRD (S/P/Bld) [Vol rate/Area] 86 mL/min/{1.73_m2} Normal >60 [facility] Comment on above: Order Comment: 'TROP ' Serial specimen #1, #2 or #3: 1 Result Comment: Non- GFR Calc Performed By: #### L 503.6620, L300.8000, L500.2500, L100.0100, L501.4020 ####[facility] [address] [place], [address] Glucose [Mass/Vol] 123 mg/dL High 74-106 [facility] Comment on above: Order Comment: 'TROP ' Serial specimen #1, #2 or #3: 1 Result Comment: Fast ing Glucose result from 100 to 125 mg/dL suggests IMPAIRED HOMEOSTASIS per A.D.A. criteria. Performed By: #### L 503.6620, L300.8000, L500.2500, L100.0100, L501.4020 ####[facility] [address] [place], [address] Potassium [Moles/Vol] 3.8 mmol/L Normal 3.5-5.1 [facility] Comment on above: Order Comment: 'TROP ' Serial specimen #1, #2 or #3: 1 Performed By: #### L 503.6620, L300.8000, L500.2500, L100.0100, L501.4020 ####[facility] [address] [place], [address] Sodium [Moles/Vol] 135 mmol/L Low 136-145 [facility] Comment on above: Order Comment: 'TROP ' Serial specimen #1, #2 or #3: 1 Performed By: #### L 503.6620, L300.8000, L500.2500, L100.0100, L501.4020 ####[facility] [address] [place], [address] Urea nitrogen [Mass/Vol] 14 mg/dL Normal 7-18 [facility] Comment on above: Order Comment: 'TROP ' Serial specimen #1, #2 or #3: 1 Performed By: #### L 503.6620, L300.8000, L500.2500, L100.0100, L501.4020 ####[facility] [address] [place], [address] Basophil percentageOrdered B y: Dr. Alexander on 05-18-2022 Basophils/100 WBC (Bld) 0.4 % 0-1 [facility] Chloride [Moles/Vol] 106 mmol/L 98-107 [facility] Eosinophils/100 WBC (Bld) 1.4 % 0-5 [facility] Glucose [Mass/Vol] 123 mg/dL 74-106 [facility] Comment on above: Fasting Glucose resu lt from 100 to 125 mg/dL suggests IMPAIRED HOMEOSTASIS per A.D.A. criteria. Neutrophils (Bld) [#/Vol] 4.7 10*3/uL 2.0-7.7 [facility] Neutrophils/100 WBC (Bld) 60.7 % 47-70 [facility] Potassium [Moles/Vol] 3.8 mmol/L 3.5-5.1 [facility] Sodium [Moles/Vol] 135 mmol/L 136-145 [facility] WBC (Bld) [#/Vol] 7.8 10*3/uL 4.4-11.0 [facility] Blood erythrocytes count (nu mber/volume)Ordered By: Dr. Alexander on 05-18-2022 RBC (Bld) [#/Vol] 4.62 10*6/uL 4.2-5.4 [facility] Blood hemoglobin measurement (mass/volume)Ordered By: Dr. Alexander on 05-18-2022 Hemoglobin (Bld) [Mass/Vol] 12.9 g/dL 12.0-15.0 [facility] Blood lymphocytes/100 leukoc ytesOrdered By: Dr. Alexander on 05-18-2022 Lymphocytes/100 WBC (Bld) 28.6 % 19-41 [facility] Blood monocytes/100 leukocyt esOrdered By: Dr. Alexander on 05-18-2022 Monocytes/100 WBC (Bld) 8.5 % 0-10 [facility] Blood platelet mean volumeOr dered By: Dr. Alexander on 05-18-2022 Platelet mean volume (Bld) [Entitic vol] 10.1 fL 6.2-12.0 [facility] CBC W/Diff, Automatedon - Absolute Lymph 2.23 X10 3/uL Normal 0.83-4.51 [facility] Comment on above: Performed By: #### L 503.6620, L300.8000, L500.2500, L100.0100, L501.4020 ####[facility] [address] [place], [address] Absolute Neut 4.7 X10 3/uL Normal 2.0-7.7 [facility] Comment on above: Performed By: #### L 503.6620, L300.8000, L500.2500, L100.0100, L501.4020 ####[facility] [address] [place], [address] Basophils/100 WBC (Bld) 0.4 % Normal 0-1 [facility] Comment on above: Performed By: #### L 503.6620, L300.8000, L500.2500, L100.0100, L501.4020 ####[facility] [address] [place], [address] Eosinophils/100 WBC (Bld) 1.4 % Normal 0-5 [facility] Comment on above: Performed By: #### L 503.6620, L300.8000, L500.2500, L100.0100, L501.4020 ####[facility] [address] [place], [address] Erythrocyte distribution width (RBC) [Ratio] 13.3 % Normal 11.6-14.6 [facility] Comment on above: Performed By: #### L 503.6620, L300.8000, L500.2500, L100.0100, L501.4020 ####[facility] [address] [place], [address] Hematocrit (Bld) [Volume fraction] 39.5 % Normal 37-47 [facility] Comment on above: Performed By: #### L 503.6620, L300.8000, L500.2500, L100.0100, L501.4020 ####[facility] [address] [place], [address] Hemoglobin (Bld) [Mass/Vol] 12.9 g/dL Normal 12.0-15.0 [facility] Comment on above: Performed By: #### L 503.6620, L300.8000, L500.2500, L100.0100, L501.4020 ####[facility] [address] [place], [address] IG% 0.400 Normal 0.0-0.9 [facility] Comment on above: Result Comment: IG% - Immature Granulocytes (promyelocytes, myelocytes and metamyelocytes) > 1% indicates that a LEFT SHIFT is Present. Performed By: #### L 503.6620, L300.8000, L500.2500, L100.0100, L501.4020 ####[facility] [address] [place], [address] Lymphocytes/100 WBC (Bld) 28.6 % Normal 19-41 [facility] Comment on above: Performed By: #### L 503.6620, L300.8000, L500.2500, L100.0100, L501.4020 ####[facility] [address] [place], [address] MCH (RBC) [Entitic mass] 27.9 pg Normal 27.0-32.0 [facility] Comment on above: Performed By: #### L 503.6620, L300.8000, L500.2500, L100.0100, L501.4020 ####[facility] [address] [place], [address] MCHC (RBC) [Mass/Vol] 32.7 g/dL Normal 32-36 [facility] Comment on above: Performed By: #### L 503.6620, L300.8000, L500.2500, L100.0100, L501.4020 ####[facility] [address] [place], [address] MCV (RBC) [Entitic vol] 85.5 fL Normal 81-99 [facility] Comment on above: Performed By: #### L 503.6620, L300.8000, L500.2500, L100.0100, L501.4020 ####[facility] [address] [place], [address] Monocytes/100 WBC (Bld) 8.5 % Normal 0-10 [facility] Comment on above: Performed By: #### L 503.6620, L300.8000, L500.2500, L100.0100, L501.4020 ####[facility] [address] [place], [address] Neutrophils/100 WBC (Bld) 60.7 % Normal 47-70 [facility] Comment on above: Performed By: #### L 503.6620, L300.8000, L500.2500, L100.0100, L501.4020 ####[facility] [address] [place], [address] Nucleated RBC (Bld) [#/Vol] 0 10*3/uL Normal 0-5 [facility] Comment on above: Performed By: #### L 503.6620, L300.8000, L500.2500, L100.0100, L501.4020 ####[facility] [address] [place], [address] Platelet mean volume (Bld) [Entitic vol] 10.1 fL Normal 6.2-12.0 [facility] Comment on above: Performed By: #### L 503.6620, L300.8000, L500.2500, L100.0100, L501.4020 ####[facility] [address] [place], [address] Platelets (Bld) [#/Vol] 233 10*3/uL Normal 150-450 [facility] Comment on above: Performed By: #### L 503.6620, L300.8000, L500.2500, L100.0100, L501.4020 ####[facility] [address] [place], [address] RBC (Bld) [#/Vol] 4.62 10*6/uL Normal 4.2-5.4 [facility] Comment on above: Performed By: #### L 503.6620, L300.8000, L500.2500, L100.0100, L501.4020 ####[facility] [address] [place], [address] RDW SD 41.1 fl Normal 35.1-43.9 [facility] Comment on above: Performed By: #### L 503.6620, L300.8000, L500.2500, L100.0100, L501.4020 ####[facility] [address] [place], [address] WBC (Bld) [#/Vol] 7.8 10*3/uL Normal 4.4-11.0 [facility] Comment on above: Performed By: #### L 503.6620, L300.8000, L500.2500, L100.0100, L501.4020 ####[facility] [address] [place], [address] CTA Chest W/WO Contraston CTA Chest W/WO Contrast [facility] Imaging Services [address] [place] [address] CTA Chest W/WO Contrast MR#: [id number] Acct: [id number] Name: SAHRA BRICEÑO Long Rep #: [id number] : 1980 F 42 From: Otis Moscoso PCP: GEOVANY Smith Status: REG ER Study: CTA Chest W/WO Contrast Date of Exam: 05/18/22 Exam# [id number] Ordering Dr: Tito Alexander MD EXAM: CT ANGIOGRAPHY CHEST WITHOUT AND WITH INTRAVENOUS CONTRAST CLINICAL INDICATION: pain TECHNIQUE: Helically acquired angiography images were obtained of the chest without and with intravenous contrast. This CT exam was performed using one or more of the following dose reduction techniques: automated exposure control, adjustment of the mA and/or kV according to patient size, and/or use of iterative reconstruction technique. This report was created using [employer] report generation technology. MIP reconstructed images were created and reviewed. CONTRAST: IV 100mL Isovue-370 RADIATION DOSE: CTDIvol = 18.97 mGy, DLP = 561.73 mGy-cm COMPARISON: None. FINDINGS: PULMONARY ARTERIES: Unremarkable. No demonstrated pulmonary embolism or arterial dissection. AORTA: Unremarkable. Normal in caliber. No evidence of dissection. GREAT VESSELS OF AORTIC ARCH: Unremarkable. Normal in caliber. No evidence of dissection. LUNGS AND PLEURAL SPACES: Unremarkable. No mass. No consolidation or edema. No pleural effusion or thickening. No pneumothorax. HEART: Unremarkable. Heart size is normal. No pericardial effusion. No signs of right heart strain, ratio of right ventricle to left ventricle measures less than 1. MEDIASTINUM: Unremarkable. No mediastinal or hilar adenopathy. Esophagus is unremarkable. No hiatal hernia. THYROID: Unremarkable. No thyroid lesions. BONES/JOINTS: There are degenerative findings of the thoracic spine. No suspicious lytic or blastic abnormality. GALLBLADDER AND BILE DUCTS: The gallbladder is surgically absent. CT/CTA Chest W/WO Contrast IMPRESSION: No demonstrated pulmonary embolism or arterial dissection. Electronically Signed: Otis Orozco MD at 18:33 EDT , CC: GEOVANY Kruger; Dr. Tito Alexander MD Manager Cardiac Cath: Signed Normal [facility] Chest 1 View (Portable)on Chest 1 View (Portable) [facility] Imaging Services [address] [place] [id number] Chest 1 View (Portable) MR#: [id number] Acct: [id number] Name: SAHRA BRICEÑO Rep #: [id number] : 1980 F 42 From: Otis Moscoso PCP: GEOVANY Smith Status: REG ER Study: Chest 1 View (Portable) Date of Exam: 05/18/22 Exam# [id number] Ordering Dr: Tito Alexander MD EXAM: XR CHEST, 1 VIEW CLINICAL INDICATION: SOB TECHNIQUE: Frontal view of the chest. This report was created using [employer] report generation technology. COMPARISON: 10.29.15. FINDINGS: LUNGS AND PLEURAL SPACES: Unremarkable. No consolidation or edema. No pneumothorax. No effusion. HEART: Unremarkable. Cardiac silhouette not enlarged. MEDIASTINUM: Central airways and mediastinal contour are unremarkable. BONES/JOINTS: Unremarkable. SOFT TISSUES: Unremarkable. RAD/Chest 1 View (Portable) IMPRESSION: No radiographic evidence of acute cardiopulmonary disease. Electronically Signed: Otis Orozco MD at 17:40 EDT , CC: CARC Jessica Kruger; Dr. Tito Alexander MD Manager Cardiac Cath: Signed Normal [facility] D-Dimer Quantitative (DVT/PE )on 05-18-2022 D-DIMER QUANT 2.07 FEU/ug/m Invalid Interpretation Code 0.27-0.49 [facility] Comment on above: Result Comment: D-Di devonte ELEVATED (>0.49): Additional studies and clinical assessments are indicated to conclude diagnosis of: Deep Vein Thrombosis (DVT) or Pulmonary Embolism (PE) CRITICAL VALUE VERIFIED. CALLED TO MEAGHAN GARCIA 05/18/22 1747 James Kahn. RESULTS READ BACK BY SAME . Performed By: #### L 503.6620, L300.8000, L500.2500, L100.0100, L501.4020 ####[facility] [address] [facility] [place], [address] Determination of erythrocyte mean corpuscular volume (MCV)Ordered By: Dr. Alexander on 05-18-2022 MCV (RBC) [Entitic vol] 85.5 fL 81-99 [facility] Emergency Department Summary on 05-18-2022 Emergency Department Summary [facility] Medical Records Department [address] [place] [address] Emergency Department Summary 05/18/22 MR#: [id number] Acct: [id number] Name: SAHRA BRICEÑO Rep #: [id number] : 1980 42 From: Tito Alexander MD PCP: GEOVANY Smith Status:REG ER Location: ED HPI History of Present Illness Chief Complaint: Shortness of Breath Informant: patient Narrative Narrative: Patient referred by her primary physician for chest pain shortness of breath and not putting out increased urination after starting Lasix about a week ago. Patient states she has been having dyspnea for a week or so. She saw her family doctor. She thought that there was a weight gain from fluids. It sounds like she had gone from 280 to about 314 pounds over the last month or so. She was started on Lasix 40 mg once a day. But this really did not significantly increase the amount of urine output and did not change the patient's symptoms. Patient is also been having some chest pain. She describes it as a heaviness across her chest. She occasionally gets sharp pains on her left upper chest and down her left arm but is not having those now. She states she has a rare cough but not different than normal as she does have asthma. She is having some increased asthma but is not really using her inhaler more. No fevers or chills. She is having a little bit of left leg soreness along with both leg swelling. But the left leg was more involved. They just an outpatient ultrasound that was negative for DVT. Patient's father in his mid young 60s of heart failure. He had had a heart attack a week or so prior but not prior to the age of 55. Patient is a non-smoker. She does not have a history of high blood pressure cholesterol. Evidently her glucose was high on some recent labs but she has not been diagnosed or treated as diabetes at this point. She has not had any travel surgery immobilization personal or family history of DVT or PEs. [facility] Medical History Asthma Diabetes mellitus Home Medications Norgestimate-Ethinyl Estradiol [Sprintec] 1 ea PO DAILY 10/29/15 [History Last Taken Unknown] budesonide-formoterol HFA 160 mcg-4.5 mcg/actuation aerosol inhaler (Symbicort) 2 puff inhalation BID 10/29/15 [History Last Taken Unknown] furosemide 40 mg tablet 40 mg PO DAILY ##7 10/29/15 [Rx Last Taken Unknown] Allergy/AdvReac Type Severity Reaction Status Date / Time cephalexin Allergy Other Verified 05/18/22 16:15 ciprofloxacin [From Cipro] Allergy Other Verified 05/18/22 16:15 lisinopril Allergy Other Verified 05/18/22 16:15 methylprednisolone Allergy Other Verified 05/18/22 16:15 [From Medrol] nitrofurantoin Allergy Other Verified 05/18/22 16:15 [From Macrobid] Penicillins [PCN] Allergy Rash Verified 11/23/20 18:56 sulfamethoxazole Allergy Other Verified 05/18/22 16:15 [From Bactrim] trimethoprim [From Bactrim] Allergy Other Verified 05/18/22 16:15 Social History Smoking Status: Never smoker substance use type: does not use ROS ROS ED Constitutional Constitutional ED: Denies chills or fever(s) Eyes Eyes: Denies change in vision ENT ENT ED: Denies ear pain, rhinorrhea or sore throat Cardiovascular Cardiovascular: Reports chest pain; Denies palpitations or racing heartbeat Respiratory/Chest Respiratory/Chest: Reports cough and dyspnea; Denies sputum Gastrointestinal Gastrointestinal: Denies nausea or vomiting Genitourinary Genitourinary ED: Denies dysuria Musculoskeletal Musculoskeletal: Reports back pain and other Details: Patient has some mild chronic back pain that is not different than any other time. Integumentary Denies rash Neurologic Neurologic: Denies paresthesias or weakness Hematologic/Lymphatic Hematologic/Lymphatic: Denies easy bleeding or easy bruising Allergic/Immunologic Allergic/Immunologic ED: Denies urticaria EXAM Physical Exam Narrative Exam Narrative: Patient awake alert no acute distress carries on normal conversation HEENT: Shows no sign of trauma. Mucous membranes are moist Eyes: No icterus Neck shows no JVD Lungs are clear. There may be a slightly prolonged expiration but no actual wheezing is heard. No pain with a deep breath. Heart is regular. Rate about 85 on the monitor now. No ectopy. No muffled heart tones. Pulses distally are normal. Abdomen is obese but otherwise benign. No tenderness. Extremities show no pitting edema. No focal tenderness. No distended veins. Neurologically she is awake alert and appropriate. Const Vital Signs: 05/18/22 16:17 05/18/22 16:41 05/18/22 17:13 Temperature 97.2 F L Temperature Source Temporal Pulse Rate 97 87 Respiratory Rate 18 18 Respir (more content not included)... Normal [facility] Hematocrit Auto (Bld) [Volum e fraction]Ordered By: Dr. Alexander on 05-18-2022 Hematocrit (Bld) [Volume fraction] 39.5 % 37-47 [facility] Influenza virus A and B and SARS-CoV-2 (COVID-19) Ag panel - Upper respiratory specimOrdered By: Dr. Alexander on 05-18-2022 SARS-CoV-2 (COVID-19) RNA APRIL+probe Ql (Resp) [facility] L501.4020on 05-18-2022 TROPONIN-I HS < 3 Low 3.0-54.0 [facility] Comment on above: Order Comment: 'TROP ' Serial specimen #1, #2 or #3: 1 Result Comment: Etienne guzman Note: New Test Units and Gender Specific Reference Ranges. For more information see Policy Stat Procedure [place] High Sensitivity Troponin (TNIH) and attachments. Performed By: #### L 503.6620, L300.8000, L500.2500, L100.0100, L501.4020 ####[facility] [address] [place], [place], [id number] Laboratory - Chemistry and C hemistry - challengeOrdered By: Dr. Alexander on 05-18-2022 CO2 [Moles/Vol] 25.0 mmol/L 21.0-32.0 [facility] Natriuretic peptide B (Bld) [Mass/Vol] 6.5 pg/mL 0-100 [facility] Urea nitrogen/Creatinine [Mass ratio] 18.0 mg/mg 10-20 [facility] Laboratory - Hematology and Cell countsOrdered By: Dr. Alexander on 05-18-2022 Erythrocyte distribution width (RBC) [Entitic vol] 41.1 fL 35.1-43.9 [facility] Erythrocyte distribution width (RBC) [Ratio] 13.3 % 11.6-14.6 [facility] Immature granulocytes/100 WBC (Bld) 0.400 % 0.0-0.9 [facility] Comment on above: IG% - Immature Granu locytes (promyelocytes, myelocytes and metamyelocytes) > 1% indicates that a LEFT SHIFT is Present. MCH (RBC) [Entitic mass] 27.9 pg 27.0-32.0 [facility] Nucleated RBC/100 WBC (Bld) [Ratio] 0 % 0-5 [facility] M101.0111on 05-18-2022 M101.0111 *Negative results fr om patients with symptom onset beyond five days should be treated as presumptive and confirmed by a molecular assay if clinically necessary. Negative results should not be used as the sole basis for treatment or for patient management. FLUABV+SARS-CoV2 Ag Pnl Up resp IA.rapid Negative Influenza results should be confirmed with FLU PANEL MOLECULAR if indicated. FLUABV+SARS-CoV2 Ag Pnl Up resp IA.rapid * This test has not been FDA cleared or approved; the test has been authorized by FDA under an Emergency Use Authorization (EAU) for use by laboratories certified under CLIA that meet the requirements to perform moderate, high, or waived complexity tests. FLUABV+SARS-CoV2 Ag Pnl Up resp IA.rapid Normal Reference Range: Negative Romy, CADEN method SARS-CoV-2 (COVID 19) Negative Influenza Ag, Direct Presumptive NEGATIVE for Influenza A/B Antigen (See Note) Normal [facility] Comment on above: Performed By: #### M 101.0111 ####[facility] [address] [place], [address] MCHC Auto (RBC) [Mass/Vol]Or dered By: Dr. Alexander on 05-18-2022 MCHC (RBC) [Mass/Vol] 32.7 g/dL 32-36 [facility] No Panel InformationOrdered By: Dr. Alexander on 05-18-2022 D-Dimer Quantitative (PE/DVT) 2.07 FEU/ug/m 0.27-0.49 [facility] Comment on above: D-Dimer ELEVATED (>0 .49): Additional studies and clinicalassessments are indicated to conclude diagnosis of:Deep Vein Thrombosis (DVT) or Pulmonary Embolism (PE)CRITICAL VALUE VERIFIED. CALLED TO MEAGHAN GARCIA05/18/22 Moody Kahn.RESULTS READ BACK BY SAME . Estimated Creatinine Clearance Calc 73.55 ml/min [facility] Estimated GFR (MDRD) Amer 104 mL/min >60 [facility] Comment on above: GFR Calc Estimated GFR (MDRD) Non-Af Amer 86 mL/min >60 [facility] Comment on above: Non- GFR Calc Troponin I High Sensitivity < 3 pg/mL 3.0-54.0 [facility] Comment on above: Please Note: New Sobia t Units and Gender Specific Reference Ranges. For more information see Policy Stat Procedure [place] High Sensitivity Troponin (TNIH) and attachments. No Panel Informationon 05-18 7.8 K/mm3 Normal 4.4 - 11.0 K/mm3 [facility], [facility].; [facility], [facility]. Work Phone: 4.62 {M/mm3} Normal 4.2 - 5.4 {M/mm3} [facility] Work Phone: 12.9 g/dL Normal 12.0 - 15.0 g/dL [facility], [facility].; [facility] Work Phone: 39.5 Normal 37 - 47 [facility], [facility].; [facility] Work Phone: 85.5 fL Normal 81 - 99 fL [facility], [facility].; [facility] Work Phone: 27.9 pg Normal 27.0 - 32.0 pg [facility].; [facility] Work Phone: 32.7 g/dL Normal 32 - 36 g/dL [facility], [facility].; [facility] Work Phone: 13.3 Normal 11.6 - 14.6 [facility], [facility].; [facility] Work Phone: 41.1 fL Normal 35.1 - 43.9 fL [facility] Work Phone: 233 K/mm3 Normal 150 - 450 K/mm3 [facility], [facility].; [facility] Work Phone: 10.1 fL Normal 6.2 - 12.0 fL [facility] Work Phone: 60.7 Normal 47 - 70 [facility].; [facility] Work Phone: 28.6 Normal 19 - 41 [facility].; [facility] Work Phone: 8.5 Normal 0 - 10 [facility] Work Phone: 1.4 Normal 0 - 5 [facility] Work Phone: 0.4 Normal 0 - 1 [facility] Work Phone: 0.400 Normal 0.0 - 0.9 [facility] Work Phone: 4.7 {X10_3/uL} Normal 2.0 - 7.7 {X10_3/uL} [facility] Work Phone: 2.23 {X10_3/uL} Normal 0.83 - 4.51 {X10_3/uL} [facility] Work Phone: 0 Normal 0 - 5 [facility] Work Phone: 123 mg/dL Abnormal 74 - 106 mg/dL [facility].; [facility] Work Phone: 14 mg/dL Normal 7 - 18 mg/dL [facility], [facility].; [facility], [facility] Work Phone: 0.78 mg/dL Normal 0.55 - 1.02 mg/dL [facility].; [facility] Work Phone: 86 mL/min Normal [facility], [facility]. Work Phone: 104 mL/min Normal [facility].; [facility] Work Phone: 73.55 ml/min Normal [facility].; [facility], [facility]. Work Phone: 18.0 {RATIO} Normal 10 - 20 {RATIO} [facility].; [facility], [facility]. Work Phone: 9.0 mg/dL Normal 8.5 - 10.1 mg/dL [facility].; [facility], [facility]. Work Phone: 135 mmol/L Abnormal 136 - 145 mmol/L [facility].; [facility], [facility]. Work Phone: 3.8 mmol/L Normal 3.5 - 5.1 mmol/L [facility].; [facility], [facility]. Work Phone: 106 mmol/L Normal 98 - 107 mmol/L [facility].; [facility], [facility]. Work Phone: 25.0 mmol/L Normal 21.0 - 32.0 mmol/L [facility].; [facility], [facility]. Work Phone: 4 Abnormal 5 - 15 [facility].; [facility], [facility]. Work Phone: < 3 Abnormal 3.0 - 54.0 pg/mL [facility].; [facility] Work Phone: 6.5 pg/mL Normal 0 - 100 pg/mL [facility].; [facility]. Work Phone: 2.07 {FEU/ug/m} Abnormal 0.27 - 0.49 {FEU/ug/m} [facility]. Work Phone: See Note Normal [facility]. Work Phone: Platelets bldOrdered By: Dr. Alexander on 05-18-2022 Platelets (Bld) [#/Vol] 233 10*3/uL 150-450 [facility] Serum or plasma calcium kelvin urement (mass/volume)Ordered By: Dr. Alexander on 05-18-2022 Calcium [Mass/Vol] 9.0 mg/dL 8.5-10.1 [facility] Serum or plasma creatinine m easurement (mass/volume)Ordered By: Dr. Alexander on 05-18-2022 Creatinine [Mass/Vol] 0.78 mg/dL 0.55-1.02 [facility] Comment on above: The validity of the calculated GFR & GFRAA in patients over 70 years has not been determined. Clinical correlation is essential. Serum or plasma urea nitroge n measurement (mass/volume)Ordered By: Dr. Alexander on 05-18-2022 Urea nitrogen [Mass/Vol] 14 mg/dL 7-18 [facility] Thin prep Papanicolaou smear with manual screeningOrdered By: Dr. Alexander on 05-18-2022 Thin prep Papanicolaou smear with manual screening 4 5-15 [facility] Venous Duplex US, Unilateral on 05-16-2022 Venous Duplex US, Unilateral [facility] [address] [place] [address] Venous Duplex US, Unilateral 05/16/22 0758 MR#: [id number] Acct: [id number] Name: SAHRA BRICEÑO Rep #: [id number] : 1980 42 From: Fan Robles MD Attending Dr: GEOVANY Smith Status: REG CLI Ordering Dr: Jessica Kruger NP UROLOGY PHYSICIAN-C Date: 05/06 02/27 Location: CVS Sex: F C Admitted: Reason For Study: Swelling Procedure LEFT This is a venous duplex using B-mode, color GSV is normal. flow and spectral Doppler. CFV is compressible, spontaneous, phasic, Exam performed in department. competent, and demonstrates normal A preliminary report was called and/or faxed augmentation. to Derek ARMENTA. FV is compressible, spontaneous, phasic, competent and demonstrates normal augmentation. POP V is compressible, spontaneous, phasic, competent and demonstrates normal augmentation. T/P Trunk is compressible. PTV is compressible. LT PerV is compressible. VL/Venous Duplex US, Unilateral Interpretation Summary There is no evidence of left lower extremity deep vein thrombosis. Left great saphenous vein appears patent and compressible segmentally. Ordering Physician: Jessica Kruger Referring Physician: Jessica Kruger Performed By: Keli Griffin, T 05/16/22 0856 Date Fan Robles MD CC: GEOVANY Kruger Date Dictated: 05/16/22 0758 Date Transcribed: 05/16/22 08 Manager Cardiac Cath: Signed Normal [facility] .Auto Diffon 05-11-2022 Basophil, Absolute 0.1 10 3/mcL Normal 0.0-0.3 [facility] ([place]) Comment on above: Performed By: #### A JOLIE, CMP, GFR, CBC, PBNP, ADIFF #### [address] [address] Basophils/100 WBC (Bld) 1.6 % Normal 0.0-2.5 [facility] ([place]) Comment on above: Performed By: #### A JOLIE, CMP, GFR, CBC, PBNP, ADIFF #### [address] [address] Eosinophil, Absolute 0.1 10 3/mcL Normal 0.0-0.7 [facility] ([place]) Comment on above: Performed By: #### A JOLIE, CMP, GFR, CBC, PBNP, ADIFF #### [address] [address] Eosinophils/100 WBC (Bld) 1.7 % Normal 0.0-6.0 [facility] ([place]) Comment on above: Performed By: #### A JOLIE, CMP, GFR, CBC, PBNP, ADIFF #### [address] [address] Lymphocyte, Absolute 2.1 10 3/mcL Normal 0.9-4.3 [facility] ([place]) Comment on above: Performed By: #### A JOLIE, CMP, GFR, CBC, PBNP, ADIFF #### [address] [address] Lymphocytes/100 WBC (Bld) 30.7 % Normal 20.0-40.0 [facility] ([place]) Comment on above: Performed By: #### A JOLIE, CMP, GFR, CBC, PBNP, ADIFF #### [address] [address] Monocyte, Absolute 0.4 10 3/mcL Normal 0.1-1.4 [facility] ([place]) Comment on above: Performed By: #### A JOLIE, CMP, GFR, CBC, PBNP, ADIFF #### [address] [address] Monocytes/100 WBC (Bld) 5.7 % Normal 2.0-13.0 [facility] ([place]) Comment on above: Performed By: #### A JOLIE, CMP, GFR, CBC, PBNP, ADIFF #### [address] [address] Neutrophils/100 WBC (Bld) 60.3 % Normal 50.0-75.0 [facility] ([place]) Comment on above: Performed By: #### A JOLIE, CMP, GFR, CBC, PBNP, ADIFF #### [address] [address] .GFRon 05-11-2022 GFR Non- >60 Normal [facility] ([place]) Comment on above: Result Comment: GFR Population mean for , Non- Americans Ages 20-29 = 116 mL/min/1.73 sq.m. Ages 30-39 = 107 mL/min/1.73 sq.m. Ages 40-49 = 99 mL/min/1.73 sq.m. Ages 50-59 = 93 mL/min/1.73 sq.m. Ages 60-69 = 85 mL/min/1.73 sq.m. Ages 70+ = 75 mL/min/1.73 sq.m. Chronic Kidney Disease: Less than 60 mL/min/1.73 square meters End Stage Renal Disease: Less than 15 mL/min/1.73 square meters Performed By: #### A JOLIE, CMP, GFR, CBC, PBNP, ADIFF #### [address] [address] GFR >60 Normal [facility] ([place]) Comment on above: Result Comment: GFR Population mean for , Non- Americans Ages 20-29 = 116 mL/min/1.73 sq.m. Ages 30-39 = 107 mL/min/1.73 sq.m. Ages 40-49 = 99 mL/min/1.73 sq.m. Ages 50-59 = 93 mL/min/1.73 sq.m. Ages 60-69 = 85 mL/min/1.73 sq.m. Ages 70+ = 75 mL/min/1.73 sq.m. Chronic Kidney Disease: Less than 60 mL/min/1.73 square meters End Stage Renal Disease: Less than 15 mL/min/1.73 square meters Performed By: #### A JOLIE, CMP, GFR, CBC, PBNP, ADIFF #### [address] [address] .NEUABSon 05-11-2022 Neutrophil, Absolute 4.2 10 3/mcL Normal 2.3-8.1 [facility] ([place]) Comment on above: Performed By: #### A JOLIE, CMP, GFR, CBC, PBNP, ADIFF #### [address] [address] CBCon 05-11-2022 Erythrocyte distribution width (RBC) [Ratio] 14.5 % Normal 11.5-15.5 [facility] ([place]) Comment on above: Performed By: #### A JOLIE, CMP, GFR, CBC, PBNP, ADIFF #### [place] [address] Hematocrit (Bld) [Volume fraction] 39.9 % Normal 34.0-46.0 [facility] ([place] Comment on above: Performed By: #### A JOLIE, CMP, GFR, CBC, PBNP, ADIFF #### [place] [id number] Hgb 13.3 G/dL Normal 12.0-16.0 [facility] ([place] Comment on above: Performed By: #### A JOLIE, CMP, GFR, CBC, PBNP, ADIFF #### [place] [id number] MCH (RBC) [Entitic mass] 28.2 pg Normal 27.0-33.0 [facility] ([place] Comment on above: Performed By: #### A JOLIE, CMP, GFR, CBC, PBNP, ADIFF #### [place] [id number] MCHC 33.2 G/dL Normal 32.0-36.0 [facility] ([place] Comment on above: Performed By: #### A JOLIE, CMP, GFR, CBC, PBNP, ADIFF #### [place] [address] MCV (RBC) [Entitic vol] 85.0 fL Normal 80.0-99.0 [facility] ([place] Comment on above: Performed By: #### A JOLIE, CMP, GFR, CBC, PBNP, ADIFF #### [place] [id number] Platelet 246 10 3/mcL Normal 150-450 [facility] ([place] Comment on above: Performed By: #### A JOLIE, CMP, GFR, CBC, PBNP, ADIFF #### [place] [address] Platelet mean volume (Bld) [Entitic vol] 9.3 fL Normal 6.6-10.5 [facility] ([place] Comment on above: Performed By: #### A JOLIE, CMP, GFR, CBC, PBNP, ADIFF #### [place] [address] RBC 4.70 10 6/mcL Normal 4.10-5.30 [facility] ([place] Comment on above: Performed By: #### A JOLIE, CMP, GFR, CBC, PBNP, ADIFF #### [place] [address] WBC 6.9 10 3/mcL Normal 4.5-10.8 [facility] ([place] Comment on above: Performed By: #### A JOLIE, CMP, GFR, CBC, PBNP, ADIFF #### [place] [address] CMPon 05-11-2022 Albumin Level 3.5 G/dL Normal 3.2-4.8 [facility] ([place] Comment on above: Performed By: #### A JOLIE, CMP, GFR, CBC, PBNP, ADIFF #### [place] [id number] Albumin/Globulin [Mass ratio] 1.1 {ratio} Normal 0.9-1.6 [facility] ([place] Comment on above: Performed By: #### A JOLIE, CMP, GFR, CBC, PBNP, ADIFF #### [place] [id number] ALP [Catalytic activity/Vol] 105 U/L Normal 38-126 [facility] ([place] Comment on above: Performed By: #### A JOLIE, CMP, GFR, CBC, PBNP, ADIFF #### [place] [address] ALT [Catalytic activity/Vol] 15 U/L Normal 10-49 [facility] ([place] Comment on above: Performed By: #### A JOLIE, CMP, GFR, CBC, PBNP, ADIFF #### [address] [address] AST [Catalytic activity/Vol] 15 U/L Normal 8-34 [facility] ([place] Comment on above: Performed By: #### A JOLIE, CMP, GFR, CBC, PBNP, ADIFF #### [address] [address] Bili Total 0.30 mg/dL Normal 0.20-1.20 [facility] ([place]) Comment on above: Result Comment: Use of this assay is not recommended for patients undergoing treatment with eltrombopag due to the potential for falsely elevated results. Performed By: #### A JOLIE, CMP, GFR, CBC, PBNP, ADIFF #### [place] [id number] BUN/Creatinine Ratio 16.7 ratio Normal 10.0-22.0 [facility] ([place]) Comment on above: Performed By: #### A JOLIE, CMP, GFR, CBC, PBNP, ADIFF #### [address] [address] Calcium [Mass/Vol] 9.2 mg/dL Normal 8.7-10.4 [facility] [place] Comment on above: Performed By: #### A JOLIE, CMP, GFR, CBC, PBNP, ADIFF #### [address] [address] Chloride [Moles/Vol] 107 mmol/L Normal 98-110 [facility] ([place]) Comment on above: Performed By: #### A JOLIE, CMP, GFR, CBC, PBNP, ADIFF #### [address] [address] CO2 [Moles/Vol] 26 mmol/L Normal 22-32 [facility] ([place] Comment on above: Performed By: #### A JOLIE, CMP, GFR, CBC, PBNP, ADIFF #### [address] [address] Creatinine [Mass/Vol] 0.72 mg/dL Normal 0.50-1.20 [facility] ([place]) Comment on above: Performed By: #### A JOLIE, CMP, GFR, CBC, PBNP, ADIFF #### [address] [address] Electrolyte Balance 8.0 mEq/L Normal 4.0-15.0 [facility] ([place]) Comment on above: Performed By: #### A JOLIE, CMP, GFR, CBC, PBNP, ADIFF #### [address] [address] Globulin 3.3 G/dL Normal 1.5-3.8 [facility] ([place] Comment on above: Performed By: #### A JOLIE, CMP, GFR, CBC, PBNP, ADIFF #### [place] [id number] Glucose [Mass/Vol] 164 mg/dL High 70-110 [facility] [place] Comment on above: Performed By: #### A JOLIE, CMP, GFR, CBC, PBNP, ADIFF #### [address] [address] Potassium [Moles/Vol] 4.2 mmol/L Normal 3.5-5.0 [facility] ([place]) Comment on above: Performed By: #### A JOLIE, CMP, GFR, CBC, PBNP, ADIFF #### [address] [address] Sodium [Moles/Vol] 141 mmol/L Normal 136-145 [facility] [place] Comment on above: Performed By: #### A JOLIE, CMP, GFR, CBC, PBNP, ADIFF #### [place] [id number] Total Protein 6.8 G/dL Normal 5.7-8.2 [facility] ([place]) Comment on above: Result Comment: No te - New Reference Range in effect 19 Performed By: #### A JOLIE, CMP, GFR, CBC, PBNP, ADIFF #### [address] [address] Urea nitrogen [Mass/Vol] 12.0 mg/dL Normal 8.0-22.0 [facility] ([place]) Comment on above: Performed By: #### A JOLIE, CMP, GFR, CBC, PBNP, ADIFF #### [facility] [address] [place] [id number] PBNPon 05-11-2022 N-Terminal proBNP <15 Normal 0-450 [facility] ([place]) Comment on above: Result Comment: NT-p roBNP results of less than 300 pg/mL effectively rules out acute congestive heart failure with 99% negative predictive value. Performed By: #### A JOLIE, CMP, GFR, CBC, PBNP, ADIFF #### [facility] [address] [place] [id number] Laboratory - Chemistry and C hemistry - challengeon 05-10-2022 Albumin BCP dye [Mass/Vol] 3.5 g/dL Normal 3.2 - 4.8 g/dL [facility], [facility]. Albumin/Globulin [Mass ratio] 1.1 {ratio} Normal 0.9 - 1.6 {ratio} [facility] ALP [Catalytic activity/Vol] 105 U/L Normal 38 - 126 U/L [facility] ALT No additional P-5'-P [Catalytic activity/Vol] 15 U/L Normal 10 - 49 U/L [facility] ALT With P-5'-P [Catalytic activity/Vol] 15 U/L Normal 10 - 49 U/L [facility].; [facility] AST [Catalytic activity/Vol] 15 U/L Normal 8 - 34 U/L [facility].; [facility] AST With P-5'-P [Catalytic activity/Vol] 15 U/L Normal 8 - 34 U/L [facility], [facility].; [facility], [facility]. Bilirubin [Mass/Vol] 0.30 mg/dL Normal 0.20 - 1.20 mg/dL [facility] Calcium [Mass/Vol] 9.2 mg/dL Normal 8.7 - 10. 4 mg/dL [facility].; [facility] Chloride [Moles/Vol] 107 mmol/L Normal 98 - 11 0 meq/L [facility] CO2 [Moles/Vol] 26 mmol/L Normal 22 - 32 meq/L [facility].; [facility] Creatinine [Mass/Vol] 0.72 mg/dL Normal 0.50 - 1.20 mg/dL [facility].; [facility]. GFR/1.73 sq M.predicted among blacks MDRD (S/P/Bld) [Vol rate/Area] mL/min/{1.73_m2} Normal [facility].; [facility] Work Phone: GFR/1.73 sq M.predicted among non-blacks MDRD (S/P/Bld) [Vol rate/Area] mL/min/{1.73_m2} Normal [facility].; [facility]. Work Phone: Glucose [Mass/Vol] 164 mg/dL Abnormal 70 - 110 mg/dL [facility].; [facility]. Natriuretic peptide.B prohormone N-Terminal [Mass/Vol] <15 Normal 0 - 450 pg/mL [facility].; [facility], [facility] Potassium [Moles/Vol] 4.2 mmol/L Normal 3.5 - 5.0 meq/L [facility].; [facility] Protein [Mass/Vol] 6.8 g/dL Normal 5.7 - 8.2 g/dL [facility]; [facility] Sodium [Moles/Vol] 141 mmol/L Normal 136 - 145 meq/L [facility]; [facility] Urea nitrogen [Mass/Vol] 12.0 mg/dL Normal 8.0 - 22.0 mg/dL [facility]; [facility] Urea nitrogen/Creatinine [Mass ratio] 16.7 {ratio} Normal 10.0 - 22.0 {ratio} [facility]; [facility] Laboratory - Hematology and Cell countson 05-10-2022 Basophils (Bld) [#/Vol] 0.1 {10^3/mcL} Normal 0.0 - 0.3 {10^3/mcL} [facility]; [facility] Work Phone: Basophils/100 WBC (Bld) 1.6 % Normal 0.0 - 2.5 % [facility]; [facility] Work Phone: Eosinophils (Bld) [#/Vol] 0.1 {10^3/mcL} Normal 0.0 - 0.7 {10^3/mcL} [facility]; [facility] Work Phone: Eosinophils/100 WBC (Bld) 1.7 % Normal 0.0 - 6.0 % [facility]; [facility] Work Phone: Erythrocyte distribution width (RBC) [Ratio] 14.5 % Normal 11.5 - 15.5 % [facility]; [facility] Hematocrit (Bld) [Volume fraction] 39.9 % Normal 34.0 - 46.0 % [facility]; [facility] Hemoglobin (Bld) [Mass/Vol] 13.3 g/dL Normal 12.0 - 16.0 g/dL [facility].; [facility] Lymphocytes (Bld) [#/Vol] 2.1 {10^3/mcL} Normal 0.9 - 4.3 {10^3/mcL} [facility].; [facility] Work Phone: Lymphocytes/100 WBC (Bld) 30.7 % Normal 20.0 - 40.0 % [facility]; [facility] Work Phone: MCH (RBC) [Entitic mass] 28.2 pg Normal 27.0 - 33.0 pg [facility].; [facility] MCHC (RBC) [Mass/Vol] 33.2 g/dL Normal 32.0 - 36.0 g/dL [facility].; [facility], [facility]. MCV (RBC) [Entitic vol] 85.0 fL Normal 80.0 - 99.0 fL [facility]; [facility] Monocytes (Bld) [#/Vol] 0.4 {10^3/mcL} Normal 0.1 - 1.4 {10^3/mcL} [facility].; [facility], [facility]. Work Phone: Monocytes/100 WBC (Bld) 5.7 % Normal 2.0 - 13.0 % [facility].; [facility], [facility]. Work Phone: Neutrophils (Bld) [#/Vol] 4.2 {10^3/mcL} Normal 2.3 - 8.1 {10^3/mcL} [facility].; [facility], [facility]. Work Phone: Neutrophils/100 WBC (Bld) 60.3 % Normal 50.0 - 75.0 % [facility], [facility], [employer]. Work Phone: Platelet mean volume (Bld) [Entitic vol] 9.3 fL Normal 6.6 - 10.5 fL [facility], [facility].; [facility], Inc Platelets (Bld) [#/Vol] 246 {10^3/mcL} Normal 150 - 450 {10^3/mcL} [facility], [facility] RBC (Bld) [#/Vol] 4.70 {10^6/mcL} Normal 4.10 - 5.30 {10^6/mcL} [facility], [facility] WBC (Bld) [#/Vol] 6.9 {10^3/mcL} Normal 4.5 - 10 .8 {10^3/mcL} [facility], [facility]. No Panel Informationon 05-10 8.0 meq/L Normal 4.0 - 15.0 meq/L [facility], [facility].; [facility], [facility] 3.3 g/dL Normal 1.5 - 3.8 g/dL [facility], [facility].; [facility], [facility] 1.7 % Normal 0.0 - 6.0 % [facility], [facility] Work Phone: 1.6 % Normal 0.0 - 2.5 % [facility].; [facility] Work Phone: 0.1 {10^3/mcL} Normal 0.0 - 0.7 {10^3/mcL} [facility].; [facility] Work Phone: Deprecated Hgb A1c [place] HbA1c (Bld) [Mass fraction] 5.9 % Abnormal 4.3 - 5.6 % [facility], [facility].; [facility], [facility]. Comment on above: Order Comment: Romana rodgers Type: BLOOD SPECIMEN Ordering Facility: [facility] Address[facility] [place] [address] Result Comment: [place] Diabetes Association guidelines indicate that patients with HgbA1c in the range 5.7-6.4% are at increased risk for development of diabetes, and intervention by lifestyle modification may be beneficial. HgbA1c greater or equal to 6.5% is considered diagnostic of diabetes. Performed By: #### 5 5454-3 #### [facility] CLIA [id number] [address] [place] [address] [place] HbA1c (Bld)on 03-08-2022 Average glucose Estimated from glycated hemoglobin (Bld) [Mass/Vol] 123 mg/dL Normal [facility] Comment on above: Order Comment: Romana rodgers Type: BLOOD SPECIMEN Ordering Facility: [facility] Address: [facility] [place] [address] Result Comment: eAG: (Estimated average glucose) is a calculated value from HgbA1c and is business services representative of the average blood glucose level in the last 2-3 month period. Performed By: #### 5 5454-3 #### [facility] CLIA [id number] [address] [place] [address] [place] Laboratory - Chemistry and C hemistry - challengeon 03-08-2022 Albumin [Mass/Vol] 1.0 g/dL Normal 0.9 - 1.6 [facility].; [facility], [facility] Albumin [Mass/Vol] 3.4 g/dL Normal 3.4 - 5.0 g/dL [facility], [facility].; [facility], [facility] ALT [Catalytic activity/Vol] 21 U/L Normal 14 - 59 U/L [facility]; [facility] ALT No additional P-5'-P [Catalytic activity/Vol] 21 U/L Normal 14 - 59 U/L [facility]; [facility] AST [Catalytic activity/Vol] 20 U/L Normal 13 - 39 U/L [facility]; [facility] Bilirubin [Mass/Vol] 0.2 mg/dL Normal 0.2 - 1 .0 mg/dL [facility]; [facility] Calcium [Mass/Vol] 8.3 mg/dL Abnormal 8.5 - 10. 1 mg/dL [facility]; [facility] Chloride [Moles/Vol] 103 mmol/L Normal 98 - 10 7 mmol/L [facility]; [facility] Cholesterol [Mass/Vol] 180 mg/dL Normal 0 - 240 mg/dL [facility]; [facility] Cholesterol in HDL [Mass or moles/Vol] 47 mg/dL Normal 40 - 60 mg/dL [facility]; [facility] Cholesterol in LDL [Mass/Vol] 87 mg/dL Normal 0 - 129 mg/dL [facility]; [facility] Cholesterol.total/Cho lesterol in HDL [Mass ratio] 3.8 {ratio} Normal 0.0 - 5.0 [facility]; [facility] CO2 [Moles/Vol] 28.9 mmol/L Normal 21.0 - 32.0 mmol/L [facility]; [facility] Creatinine [Mass/Vol] 0.79 mg/dL Normal 0.55 - 1.02 mg/dL [facility]; [facility], [facility] GFR/1.73 sq M.predicted among blacks MDRD (S/P/Bld) [Vol rate/Area] mL/min/{1.73_m2} Normal 60 - 999 {ML/MINUTE} [facility].; [facility], [facility]. GFR/1.73 sq M.predicted MDRD (S/P/Bld) [Vol rate/Area] mL/min/{1.73_m2} Normal 60 - 999 {ML/MINUTE} [facility], [facility].; [facility], [facility]. Globulin (S) [Mass/Vol] 3.4 g/dL Normal 1.5 - 3.8 g/dL [facility], [facility]. Glucose [Mass/Vol] 130 mg/dL Abnormal 74 - 106 mg/dL [facility].; [facility], [facility]. Potassium [Moles/Vol] 4.1 mmol/L Normal 3.5 - 5.1 mmol/L [facility].; [facility], [facility] Protein [Mass/Vol] 6.8 g/dL Normal 6.4 - 8.2 g/dL [facility].; [facility], [facility]. Sodium [Moles/Vol] 140 mmol/L Normal 136 - 145 mmol/L [facility].; [facility], [facility]. Triglyceride [Mass/Vol] 230 mg/dL Abnormal 0 - 150 mg/dL [facility].; [facility], [facility]. Urea nitrogen [Mass/Vol] 13 mg/dL Normal 7 - 18 mg/dL [facility].; [facility], [facility]. Urea nitrogen/Creatinine [Mass ratio] 16 {ratio} Normal 0 - 30 {ratio} [facility].; [facility], [facility]. No Panel Informationon 03-08 43 {years} Normal [facility].; [facility], [facility]. 12 mmol/L Normal 10 - 20 mmol/L [facility], [facility].; [facility], [facility]. 99 U/L Normal 46 - 116 U/L [facility].; [facility], [facility] 123 mg/dL Normal [facility], [facility]. No Panel Informationon 08-29 0.08 {gm/24_Hr} Normal [facility], [facility] Work Phone: 24 {hours} Normal [facility], [facility] Work Phone: 1030 mL Normal [facility], [facility] Work Phone: See Note Normal [facility], [facility] Work Phone: 23.81 % Normal [facility], [facility] Work Phone: 5.48 % Normal [facility] Work Phone: 16.65 % Normal [facility] Work Phone: 36.49 % Normal [facility], [facility] Work Phone: 17.57 % Normal [facility], [facility] Work Phone: No definitive M protein is identified on protein electrophoresis. Normal [facility], [facility] Work Phone: 0.00 {g/24hr} Normal [facility], [facility] Work Phone: Reviewed by Rikki Hightower MD, Ph.D ([id number]) Normal [facility], [facility] Work Phone: A poorly defined region of restricted mobility is present that may represent an M protein. Abnormal [employer] [facility] Work Phone: See Note Normal [employer] [facility] Work Phone: Reviewed by Rikki Hightower MD, Ph.D ([id number]) Normal [employer] [facility].; [employer] [facility]. Work Phone: XR BONE SURVEY ROUTINEon [facility] B2 MICROGLOBULIN Bon 022 [id number] [Mass/Vol] 2.9 ug/mL High 0.8 - 2.4 mg/L [facility] Calcium.ionized [Moles/Vol]o n 08-23-2021 Calcium.ionized (Bld) [Mass/Vol] 1.25 mmol/L 1.08 - 1.30 mmol/L [facility] Calcium.ionized adjusted to pH 7.4 (Bld) [Moles/Vol] 1.23 mmol/L 1.08 - 1.30 mmol/L [facility] Comprehensive metabolic 2000 panelon 08-23-2021 Albumin [Mass/Vol] 4.0 g/dL 3.9 - 4.9 g/dL [facility] ALP [Catalytic activity/Vol] 85 U/L 34 - 123 U/L [facility] ALT [Catalytic activity/Vol] 11 U/L 7 - 38 U/L [facility] Anion gap [Moles/Vol] 11 mmol/L 9 - 18 mmol/L [facility] AST [Catalytic activity/Vol] 15 U/L 13 - 35 U/L [facility] Bilirubin [Mass/Vol] 0.2 mg/dL 0.2 - 1 .3 mg/dL [facility] Calcium [Mass/Vol] 9.0 mg/dL 8.5 - 10. 2 mg/dL [facility] Chloride [Moles/Vol] 105 mmol/L 97 - 10 5 mmol/L [facility] CO2 [Moles/Vol] 23 mmol/L 22 - 30 mmol/L [facility] Creatinine [Mass/Vol] 0.70 mg/dL 0.58 - 0.96 mg/dL [facility] Estimated Glomerular Filtration Rate 111 mL/min/1.73m >=60 mL/min/1.73m [facility] Glucose [Mass/Vol] 86 mg/dL 74 - 99 mg/dL [facility] Potassium [Moles/Vol] 4.2 mmol/L 3.7 - 5.1 mmol/L [facility] Protein [Mass/Vol] 6.8 g/dL 6.3 - 8.0 g/dL [facility] Sodium [Moles/Vol] 139 mmol/L 136 - 144 mmol/L [facility] Urea nitrogen [Mass/Vol] 9 mg/dL 7 - 21 mg/dL [facility] LD LACTATE DEHYDROon LDH [Catalytic activity/Vol] 203 U/L 135 - 214 U/L [facility] PHOSPHORUS INORGANICon 08-23 Phosphate [Mass/Vol] 3.9 mg/dL 2.7 - 4 .8 mg/dL [facility] URIC ACID BLOODon 08-23-2021 Urate [Mass/Vol] 4.2 mg/dL 2.5 - 6.6 mg/dL [facility] Laboratory - Chemistry and C hemistry - challengeon 07-25-2021 Albumin [Mass/Vol] 0.6 g/dL Abnormal 0.9 - 1.6 [facility]); [facility] Albumin [Mass/Vol] 2.6 g/dL Abnormal 3.4 - 5.0 g/dL [facility]; [facility], [facility]. ALT [Catalytic activity/Vol] 25 U/L Normal 14 - 59 U/L [facility]; [facility], [facility]. ALT No additional P-5'-P [Catalytic activity/Vol] 25 U/L Normal 14 - 59 U/L [facility], [facility]. AST [Catalytic activity/Vol] 37 U/L Normal 13 - 39 U/L [facility]; [facility], [facility]. Bilirubin [Mass/Vol] 0.5 mg/dL Normal 0.2 - 1 .0 mg/dL [facility]; [facility] Bilirubin Ql (U) 1+ Abnormal [facility]3].; [facility] Calcium [Mass/Vol] 8.4 mg/dL Abnormal 8.5 - 10. 1 mg/dL [facility] Chloride [Moles/Vol] 102 mmol/L Normal 98 - 10 7 mmol/L [facility] CO2 [Moles/Vol] 29.5 mmol/L Normal 21.0 - 32.0 mmol/L [facility]; [facility] Creatinine [Mass/Vol] 0.83 mg/dL Normal 0.55 - 1.02 mg/dL [facility]; [facility] Free T4 [Mass/Vol] 2.62 ng/dL Abnormal 0.76 - 1. 46 ng/dL [facility]; [facility], [facility]. GFR/1.73 sq M.predicted among blacks MDRD (S/P/Bld) [Vol rate/Area] mL/min/{1.73_m2} Normal 60 - 999 {ML/MINUTE} [facility].; [facility], [facility]. GFR/1.73 sq M.predicted MDRD (S/P/Bld) [Vol rate/Area] mL/min/{1.73_m2} Normal 60 - 999 {ML/MINUTE} [facility].; [facility], [facility]. Globulin (S) [Mass/Vol] 4.1 g/dL Abnormal 1.5 - 3.8 g/dL [facility].; [facility], [facility]. Glucose [Mass/Vol] 144 mg/dL Abnormal 74 - 106 mg/dL [facility].; [facility], [facility]. Ketones Ql (U) TRACE Abnormal [facility]; [facility] pH (U) 6.0 [pH] Normal [facility]; [facility], [facility] Potassium [Moles/Vol] 3.0 mmol/L Abnormal 3.5 - 5.1 mmol/L [facility].; [facility] Protein [Mass/Vol] 6.7 g/dL Normal 6.4 - 8.2 g/dL [facility].; [facility] Sodium [Moles/Vol] 139 mmol/L Normal 136 - 145 mmol/L [facility].; [facility], [facility]. Specific gravity (U) [Rel density] 1.020 Normal [facility].; [facility], [facility]. TSH Qn 3.08 m[IU]/L Normal 0.35 - 3.74 {uIU/ml} [facility]; [facility], [facility]. Urea nitrogen [Mass/Vol] 11 mg/dL Normal 7 - 18 mg/dL [facility].; [facility], [facility]. Urea nitrogen/Creatinine [Mass ratio] 13 {ratio} Normal 0 - 30 {ratio} [facility].; [facility], [facility]. Laboratory - Hematology and Cell countson 07-25-2021 Hemoglobin Ql (U) Negative Normal [facility], [facility]. Laboratory - Specimen inform ationon 07-25-2021 Appearance (U) CLEAR Normal [facility]; [facility] Color (U) NUNU Normal [facility].; [facility], [facility]. Laboratory - Urinalysison Glucose Test strip (U) [Mass/Vol] Negative Normal [facility].; [facility], [facility]. Leukocyte esterase Test strip Ql (U) 1+ Abnormal [facility].; [facility], [facility]. Nitrite Ql (U) Positive Abnormal [facility], [facility]. Protein Ql (U) 1+ Abnormal [facility], [facility]. No Panel Informationon 07-25 42 {years} Normal [facility], [facility].; [facility] 11 mmol/L Normal 10 - 20 mmol/L [facility].; [facility] 66 U/L Normal 46 - 116 U/L [facility], [facility].; [facility] 17 Normal [facility].; [facility], [facility] Negative Normal [facility].; [facility] 3.23 g/dL Abnormal 3.37 - 4.23 g/dL [facility].; [facility] 0.24 g/dL Normal 0.18 - 0.31 g/dL [facility], [facility].; [facility], [facility]. 0.50 g/dL Abnormal 0.52 - 0.97 g/dL [facility], [facility].; [facility] 1.01 g/dL Normal 0.84 - 1.36 g/dL [facility], [facility].; [facility] 1.61 g/dL Abnormal 0.70 - 1.44 g/dL [facility], [facility].; [facility] 0.41 g/dL Abnormal [facility].; [facility], [facility]. An M protein is identified on protein electrophoresis. Abnormal [facility].; [facility] Gamma Fraction 1 Normal [facility]3].; [facility], [facility]. Reviewed by Karel Dangelo M.D. Normal [facility].; [facility], [facility]. A reflex test for Monoclonal Protein analysis (immunofixation) has been ordered. Normal [facility].; [facility] 3.1 pg/mL Normal 2.3 - 4.1 pg/mL [facility], [facility].; [facility] MRI Cervical Spine w/oon MRI Cervical Spine w/o Submitted clinical information: Patient complains of neck pain radiates to right arm with numbness. Study Technique: MRI cervical spine was performed using Sagittal T2 and T1 imaging as well as axial T2 and T1 images. Sagittal STIR images were also obtained. Comparisons: None. Findings: Vertebral body height: No compression deformities. Disc height and Disc signal: Normal. Cord signal: No abnormal signal changes are demonstrated. Alignment: No spondylolisthesis. Straightening is noted. Bone marrow signal: No reconversion Craniovertebral junction: No evidence of a Chiari malformation. Paraspinal soft tissues: No abnormal inflammation or lesion detected. Axial Imaging: C2-3: The intervertebral disc is intact. Facet articulations are intact. The neural foramina are patent. No evidence of canal stenosis at this level. C3-4: The intervertebral disc is intact. Facet articulations are intact. The neural foramina are patent. No evidence of canal stenosis at this level. C4-5: The intervertebral disc is intact. Facet articulations are intact. The neural foramina are patent. No evidence of canal stenosis at this level. C5-6: Circumferential bulge with 2 mm posterior extrusion is seen indenting the thecal sac. High T2 signal in the posterocentral high intensity zone of the disc. There is mild bilateral neural foraminal and central canal stenosis. Facet articulations are intact. C6-7: The intervertebral disc is intact. Facet articulations are intact. The neural foramina are patent. No evidence of canal stenosis at this level. C7-T1: The intervertebral disc is intact. Facet articulations are intact. The neural foramina are patent. No evidence of canal stenosis at this level. Final Impressions: 1. Circumferential bulge with posterior extrusion and an acute annular tear at C5-6 causing mild bilateral neural foraminal and central canal stenosis. Referring physician: Please call [phone] if you would like to speak with the radiologist about this report. 1716 Normal [facility] Hemoglobin A1con 03-11-2021 Glucose [Mass/Vol] 131 mg/dL Normal [facility] Reference [facility] Comment on above: Performed By: #### H BA1C #### [facility] Laboratories Routine Lab [address] [place], [place] [address] HbA1c (Bld) [Mass fraction] 6.2 % High 4.3-5.6 [facility] Reference Lab Comment on above: Performed By: #### H BA1C #### [facility] Laboratories Routine Lab [address] [place], [place] [id number] Laboratory - Chemistry and C hemistry - challengeon 03-09-2021 Bilirubin Ql (U) 1+ Abnormal [facility].; [facility] Ketones Ql (U) Negative Normal [facility], [employer]. pH (U) 5.5 [pH] Normal [facility].; [facility], [employer]. Specific gravity (U) [Rel density] 1.030 Abnormal [facility].; [employer] [facility], [employer]. Laboratory - Hematology and Cell countson 03-09-2021 HbA1c (Bld) [Mass fraction] 6.2 % Abnormal 4.3 - 5.6 % [facility].; [employer] [facility], [facility] Hemoglobin Ql (U) Negative Normal [facility] [facility].; [employer] [facility], [employer]. Laboratory - Microbiology an d Antimicrobial susceptibilityon 03-09-2021 Bacteria identified Cx Nom (U) See Note Normal [facility].; [employer] [facility], [employer]. Work Phone: Laboratory - Specimen inform ationon 03-09-2021 Appearance (U) CLEAR Normal [facility] [facility].; [employer] [facility], [employer] Color (U) YELLOW Normal [facility] [employer]; [employer] [facility], [facility] Laboratory - Urinalysison Glucose Test strip (U) [Mass/Vol] Negative Normal [facility].; [employer] [facility], [facility] Leukocyte esterase Test strip Ql (U) Negative Normal [facility].; [employer] [facility] Nitrite Ql (U) Negative Normal [employer] [place] - [facility] Protein Ql (U) Negative Normal [employer] [place] [facility] No Panel Informationon 03-09 3.5 Normal [facility] [place] [facility]. Negative Normal [facility] [place] [facility] 131 mg/dL Normal [facility].; [place] [facility] Laboratory - Microbiology an d Antimicrobial susceptibilityon 02-15-2021 SARS-CoV-2 (COVID-19) Ag IA.rapid Ql (Resp) Positive Abnormal [employer] [place] - [facility], [facility] Work Phone: No Panel Informationon 02-15 Observation duration PASS Normal [employer] [place] - [facility] Work Phone: Observation duration YES Normal [facility], [facility] [place] [facility] Work Phone: YES Normal [employer] Work Phone: Hemoglobin A1con 10-28-2020 Glucose [Mass/Vol] 137 mg/dL Normal [facility] Reference Lab Comment on above: Performed By: #### H BA1C #### [facility] Laboratories Routine Lab [address] [place], [place] [address] HbA1c (Bld) [Mass fraction] 6.4 % High 4.3-5.6 [facility] Reference Lab Comment on above: Performed By: #### H BA1C #### [facility] Routine Lab [address] [place], [place] [address] Laboratory - Hematology and Cell countson 10-27-2020 HbA1c (Bld) [Mass fraction] 6.4 % Abnormal 4.3 - 5.6 % [employer] [facility] No Panel Informationon 10-27 137 mg/dL Normal [facility]; [facility] Laboratory - Chemistry and C hemistry - challengeon 09-21-2020 Albumin [Mass/Vol] 3.5 g/dL Normal 3.4 - 5.0 g/dL [facility]; [facility] Work Phone: Albumin [Mass/Vol] 0.8 g/dL Abnormal 0.9 - 1.6 [facility] Work Phone: ALT [Catalytic activity/Vol] 32 U/L Normal 14 - 59 U/L [facility]; [facility] Work Phone: AST [Catalytic activity/Vol] 17 U/L Normal 13 - 39 U/L [facility]; [facility] Work Phone: Bilirubin [Mass/Vol] 0.4 mg/dL Normal 0.2 - 1 .0 mg/dL [facility]; [facility] Work Phone: Calcium [Mass/Vol] 9.1 mg/dL Normal 8.5 - 10. 1 mg/dL [facility]; [facility] Work Phone: Chloride [Moles/Vol] 101 mmol/L Normal 98 - 10 7 mmol/L [facility]; [facility] Work Phone: CO2 [Moles/Vol] 28.8 mmol/L Normal 21.0 - 32.0 mmol/L [facility]; [facility] Work Phone: Creatinine [Mass/Vol] 0.83 mg/dL Normal 0.55 - 1.02 mg/dL [facility]; [facility], [facility]. Work Phone: GFR/1.73 sq M.predicted among blacks MDRD (S/P/Bld) [Vol rate/Area] mL/min/{1.73_m2} Normal 60 - 999 {ML/MINUTE} [facility], [facility]. Work Phone: GFR/1.73 sq M.predicted MDRD (S/P/Bld) [Vol rate/Area] mL/min/{1.73_m2} Normal 60 - 999 {ML/MINUTE} [facility].; [facility], [facility]. Work Phone: Globulin (S) [Mass/Vol] 4.4 g/dL Abnormal 1.5 - 3.8 g/dL [facility]; [facility], [facility]. Work Phone: Glucose [Mass/Vol] NORM Normal [facility], [facility]. Work Phone: Glucose [Mass/Vol] 114 mg/dL Abnormal 74 - 106 mg/dL [facility]; [facility], [facility]. Work Phone: Potassium [Moles/Vol] 3.9 mmol/L Normal 3.5 - 5.1 mmol/L [facility]; [facility], [facility]. Work Phone: Protein [Mass/Vol] 7.9 g/dL Normal 6.4 - 8.2 g/dL [facility]; [facility], [facility]. Work Phone: Sodium [Moles/Vol] 139 mmol/L Normal 136 - 145 mmol/L [facility]; [facility] Work Phone: Urea nitrogen [Mass/Vol] 11 mg/dL Normal 7 - 18 mg/dL [facility]; [facility] Work Phone: Urea nitrogen/Creatinine [Mass ratio] 13 {ratio} Normal 0 - 30 {ratio} [facility]; [facility] Work Phone: Laboratory - Hematology and Cell countson 09-21-2020 Basophils (Bld) [#/Vol] 0.00 {x10EE3/UL} Normal 0.00 - 0.10 {x10EE3/UL} [facility]; [facility] Work Phone: Basophils/100 WBC (Bld) 0.4 % Normal 0.0 - 2.0 % [facility]; [facility] Work Phone: Eosinophils (Bld) [#/Vol] 0.10 {x10EE3/UL} Normal 0.00 - 0.50 {x10EE3/UL} [facility], [facility]. Work Phone: Eosinophils/100 WBC (Bld) 1.3 % Normal 0.0 - 7.0 % [facility]; [facility] Work Phone: Erythrocyte distribution width (RBC) [Ratio] 14.0 % Normal 12.0 - 15.6 % [facility]; [facility] Work Phone: Hematocrit (Bld) [Volume fraction] 41.6 % Normal 34.0 - 46.0 % [facility]; [facility] Work Phone: Hemoglobin (Bld) [Mass/Vol] 13.7 g/dL Normal 12.0 - 16.0 g/dL [facility]; [facility] Work Phone: Lymphocytes (Bld) [#/Vol] 2.50 {x10EE3/UL} Normal 0.80 - 2.80 {x10EE3/UL} [facility]; [facility]. Work Phone: Lymphocytes/100 WBC (Bld) 24.9 % Normal 20.0 - 45.0 % [facility].; [facility]. Work Phone: MCH (RBC) [Entitic mass] 28 pg Normal 27 - 33 pg [facility].; [facility]. Work Phone: MCHC (RBC) [Mass/Vol] 33 {X10_3} Normal 32 - 3 6 {X10_3} [facility].; [facility]. Work Phone: MCV (RBC) [Entitic vol] 86 fL Normal 80 - 99 fL [facility]; [facility]. Work Phone: Monocytes (Bld) [#/Vol] 0.70 {x10EE3/UL} Normal 0.20 - 1.00 {x10EE3/UL} [facility].; [facility]. Work Phone: Monocytes/100 WBC (Bld) 7.2 % Normal 0.0 - 10.0 % [facility].; [facility]. Work Phone: Neutrophils (Bld) [#/Vol] 6.60 {x10EE3/UL} Normal 1.50 - 7.10 {x10EE3/UL} [facility].; [facility], [facility]. Work Phone: Neutrophils/100 WBC (Bld) 66.2 % Normal 46.0 - 76.0 % [facility]; [facility], [facility]. Work Phone: Platelet mean volume (Bld) [Entitic vol] 9.1 fL Normal 6.6 - 10.5 fL [facility].; [facility], [employer]. Work Phone: Platelets (Bld) [#/Vol] 284 {x10EE3/UL} Normal 150 - 450 {x10EE3/UL} [facility].; [place] [employer] [facility] Work Phone: RBC (Bld) [#/Vol] 4.86 {x_10EE6/UL} Normal 4.10 - 5.30 {x_10EE6/UL} [facility], [employer] [place] [employer] [facility] Work Phone: WBC (Bld) [#/Vol] 10.0 {x_10EE3/UL} Normal 4.5 - 10.8 {x_10EE3/UL} [facility].; [employer] [facility] Work Phone: Laboratory - Microbiology an d Antimicrobial susceptibilityon 09-21-2020 Bacteria identified Cx Nom (U) See Note Normal [facility].; [facility], [facility] Work Phone: No Panel Informationon 09-21 N/A Normal [facility].; [facility], [facility]. Work Phone: Void Normal [facility].; [place] [employer] [facility] Work Phone: yellow Normal [facility].; [place] [employer] [facility], [employer]. Work Phone: clear Normal [facility] Department[facility].; [place] [employer] [facility], [facility] Work Phone: 5 Abnormal [facility] DepartmentV[facility].; [place] [employer] [facility] Work Phone: 15 Abnormal [facility] [place] - [facility] Work Phone: Negative Normal [facility], [facility] [place] - [facility] Work Phone: NORM Normal [facility] [place] - [facility] Work Phone: 1.030 Normal [facility] [facility] [place] [facility] [place] - [facility] Work Phone: 25 Abnormal [facility] [place] - [facility] Work Phone: SEE BELOW Normal [facility] [place] - [facility] Work Phone: 6-10 Normal 0 - 5 [facility] [place] - [facility] Work Phone: NONE Normal [facility] [place] [facility] [place] - [facility] Work Phone: 3+ Normal [facility] [place] - [facility] Work Phone: MANY Normal [facility] [place] [facility] [place] - [facility] Work Phone: 2+ Normal [facility] [place] - [facility] [place] [facility] Work Phone: 103 U/L Normal 46 - 116 U/L [facility] [employer] - [facility] [place] [facility] Work Phone: 13 mmol/L Normal 10 - 20 mmol/L [facility] [place] [facility] [place] - [facility] Work Phone: 41 {years} Normal [facility] [place] - [facility] [place] [facility] Work Phone: Hemoglobin A1con 06-17-2021 Glucose [Mass/Vol] 148 mg/dL Normal [facility] Comment on above: Performed By: #### H BA1C #### [facility] Routine Lab [address], [place] [id number] HbA1c (Bld) [Mass fraction] 6.8 % High 4.3-5.6 [facility] Comment on above: Performed By: #### H BA1C #### [facility] Routine Lab [address], [place] [id number] Laboratory - Chemistry and C hemistry - challengeon 07-21-2020 Bilirubin Ql (U) Negative Normal [facility].; [facility], [employer]. Ketones Ql (U) Negative Normal [facility] [employer] [facility] pH (U) 6.0 [pH] Normal [facility].; [employer] [facility], [employer]. Specific gravity (U) [Rel density] 1.030 Abnormal [facility] [place] [facility].; [employer] [facility], [employer]. Laboratory - Hematology and Cell countson 07-21-2020 HbA1c (Bld) [Mass fraction] 6.8 % Abnormal 4.3 - 5.6 % [facility] [place] [facility].; [employer] [facility] Hemoglobin Ql (U) Negative Normal [facility].; [employer] [facility] Laboratory - Microbiology an d Antimicrobial susceptibilityon 07-21-2020 Bacteria identified Cx Nom (U) See Note Normal [facility].; [employer] [facility] Laboratory - Specimen inform ationon 07-21-2020 Appearance (U) CLOUDY Abnormal [facility].; [employer] [facility] [place] [facility] Color (U) NUNU Normal [facility] [place] [facility].; [employer] [facility] Laboratory - Urinalysison Glucose Test strip (U) [Mass/Vol] TRACE Abnormal [facility] [place] [facility].; [facility], [facility]. Leukocyte esterase Test strip Ql (U) 2+ Abnormal [facility].; [facility], [facility]. Nitrite Ql (U) Negative Normal [facility] Protein Ql (U) Negative Normal [facility].; [facility], [facility]. No Panel Informationon 07-21 0.2 Normal [facility].; [facility]. Negative Normal [facility].; [facility] 148 mg/dL Normal [facility].; [facility], [facility]. Laboratory - Chemistry and C hemistry - challengeon 07-16-2020 Cholesterol [Mass/Vol] 128 mg/dL Normal 0 - 240 mg/dL [facility].; [facility], [facility]. Work Phone: Cholesterol in HDL [Mass or moles/Vol] 45 mg/dL Normal 40 - 60 mg/dL [facility].; [facility], [facility]. Work Phone: Cholesterol in LDL [Mass/Vol] 65 mg/dL Normal 0 - 129 mg/dL [facility].; [facility], [facility]. Work Phone: Cholesterol.total/Cho lesterol in HDL [Mass ratio] 2.8 {ratio} Normal 0.0 - 5.0 [facility].; [facility], [facility]. Work Phone: Triglyceride [Mass/Vol] 91 mg/dL Normal 0 - 150 mg/dL [facility].; [facility], [facility]. Work Phone: Urea nitrogen (U) [Mass/Vol] mg/dL Normal 0.0 - 51.4 pg/mL [facility].; [facility], [facility]. Work Phone: Urea nitrogen (U) [Mass/Vol] 5.0 pg/mL Normal 0.0 - 51.4 pg/mL [facility]; [facility] Work Phone: Laboratory - Chemistry and C hemistry - challengeon 07-15-2020 Albumin [Mass/Vol] 2.8 g/dL Abnormal 3.4 - 5.0 g/dL [facility]; [facility] Work Phone: Albumin [Mass/Vol] 0.7 g/dL Abnormal 0.9 - 1.6 [facility] Work Phone: ALT [Catalytic activity/Vol] 23 U/L Normal 14 - 59 U/L [facility]; [facility] Work Phone: AST [Catalytic activity/Vol] 13 U/L Normal 13 - 39 U/L [facility]; [facility] Work Phone: Bilirubin [Mass/Vol] 0.2 mg/dL Normal 0.2 - 1 .0 mg/dL [facility]; [facility] Work Phone: Calcium [Mass/Vol] 8.5 mg/dL Normal 8.5 - 10. 1 mg/dL [facility]; [facility] Work Phone: Chloride [Moles/Vol] 102 mmol/L Normal 98 - 10 7 mmol/L [facility]; [facility] Work Phone: CO2 [Moles/Vol] 24.7 mmol/L Normal 21.0 - 32.0 mmol/L [facility]; [facility] Work Phone: Creatinine [Mass/Vol] 0.83 mg/dL Normal 0.55 - 1.02 mg/dL [facility]; [facility]. Work Phone: GFR/1.73 sq M.predicted among blacks MDRD (S/P/Bld) [Vol rate/Area] mL/min/{1.73_m2} Normal 60 - 999 {ML/MINUTE} [facility]; [facility]. Work Phone: GFR/1.73 sq M.predicted MDRD (S/P/Bld) [Vol rate/Area] mL/min/{1.73_m2} Normal 60 - 999 {ML/MINUTE} [facility]; [facility] Work Phone: Globulin (S) [Mass/Vol] 4.0 g/dL Abnormal 1.5 - 3.8 g/dL [facility]; [facility]. Work Phone: Glucose [Mass/Vol] 152 mg/dL Abnormal 74 - 106 mg/dL [facility]; [facility]. Work Phone: Potassium [Moles/Vol] 3.5 mmol/L Normal 3.5 - 5.1 mmol/L [facility]; [facility] Work Phone: Protein [Mass/Vol] 6.8 g/dL Normal 6.4 - 8.2 g/dL [facility].; [facility]. Work Phone: Sodium [Moles/Vol] 138 mmol/L Normal 136 - 145 mmol/L [facility]; [facility], [facility]. Work Phone: Urea nitrogen (U) [Mass/Vol] 4.2 pg/mL Normal 0.0 - 51.4 pg/mL [facility]; [facility] Work Phone: Urea nitrogen (U) [Mass/Vol] 31 pg/mL Normal 0 - 125 pg/mL [facility]; [facility] Work Phone: Urea nitrogen [Mass/Vol] 13 mg/dL Normal 7 - 18 mg/dL [facility]; [facility] Work Phone: Urea nitrogen/Creatinine [Mass ratio] 16 {ratio} Normal 0 - 30 {ratio} [facility].; [facility] Work Phone: Laboratory - Hematology and Cell countson 07-15-2020 Basophils (Bld) [#/Vol] 0.10 {x10EE3/UL} Normal 0.00 - 0.10 {x10EE3/UL} [facility]; [facility] Work Phone: Basophils/100 WBC (Bld) 1.5 % Normal 0.0 - 2.0 % [facility] HospitalK[facility]et[facility]; [facility] Work Phone: Eosinophils (Bld) [#/Vol] 0.10 {x10EE3/UL} Normal 0.00 - 0.50 {x10EE3/UL} [facility] HospitalK[facility]; [facility] Work Phone: Eosinophils/100 WBC (Bld) 1.5 % Normal 0.0 - 7.0 % [facility] HospitalK[facility]; [facility] Work Phone: Erythrocyte distribution width (RBC) [Ratio] 13.7 % Normal 12.0 - 15.6 % [facility] HospitalK[facility]; [facility] Work Phone: Hematocrit (Bld) [Volume fraction] 37.5 % Normal 34.0 - 46.0 % [facility]; [facility] Work Phone: Hemoglobin (Bld) [Mass/Vol] 12.7 g/dL Normal 12.0 - 16.0 g/dL [facility]; [facility] Work Phone: Lymphocytes (Bld) [#/Vol] 1.70 {x10EE3/UL} Normal 0.80 - 2.80 {x10EE3/UL} [facility]; [facility] Work Phone: Lymphocytes/100 WBC (Bld) 20.8 % Normal 20.0 - 45.0 % [facility]; [facility] Work Phone: MCH (RBC) [Entitic mass] 29 pg Normal 27 - 33 pg [facility]; [facility] Work Phone: MCHC (RBC) [Mass/Vol] 34 {X10_3} Normal 32 - 3 6 {X10_3} [facility]; [facility] Work Phone: MCV (RBC) [Entitic vol] 86 fL Normal 80 - 99 fL [facility]; [facility] Work Phone: Monocytes (Bld) [#/Vol] 0.70 {x10EE3/UL} Normal 0.20 - 1.00 {x10EE3/UL} [facility]; [facility] Work Phone: Monocytes/100 WBC (Bld) 8.4 % Normal 0.0 - 10.0 % [facility]; [facility] Work Phone: Neutrophils (Bld) [#/Vol] 5.60 {x10EE3/UL} Normal 1.50 - 7.10 {x10EE3/UL} [facility].; [facility]. Work Phone: Neutrophils/100 WBC (Bld) 67.8 % Normal 46.0 - 76.0 % [facility]; [facility]. Work Phone: Platelet mean volume (Bld) [Entitic vol] 8.6 fL Normal 6.6 - 10.5 fL [facility]; [facility]. Work Phone: Platelets (Bld) [#/Vol] 251 {x10EE3/UL} Normal 150 - 450 {x10EE3/UL} [facility]; [facility], [facility]. Work Phone: RBC (Bld) [#/Vol] 4.38 {x_10EE6/UL} Normal 4.10 - 5.30 {x_10EE6/UL} [facility], [facility]. Work Phone: WBC (Bld) [#/Vol] 8.3 {x_10EE3/UL} Normal 4.5 - 10.8 {x_10EE3/UL} [facility].; [facility], [facility]. Work Phone: No Panel Informationon 07-15 N/A Normal [facility]; [facility] Work Phone: 303 ng/mL Abnormal 0 - 230 ng/mL [facility]; [facility] Work Phone: 115 U/L Normal 46 - 116 U/L [facility]; [facility] Work Phone: 15 mmol/L Normal 10 - 20 mmol/L [facility].; [facility] Work Phone: 41 {years} [facility].; [facility] Work Phone: Laboratory - Microbiology an d Antimicrobial susceptibilityon 06-04-2020 Bacteria identified Cx Nom (U) See Note Normal [facility] [place] [facility] Laboratory - Chemistry and C hemistry - challengeon 05-28-2020 Glucose [Mass/Vol] NORM Normal [facility].; [facility] Work Phone: Laboratory - Microbiology an d Antimicrobial susceptibilityon 05-28-2020 Bacteria identified Cx Nom (Bld) See Note Normal [facility] [place] [facility].; [facility] Work Phone: Bacteria identified Cx Nom (U) See Note Normal [facility] [place] [facility].; [facility] Work Phone: No Panel Informationon 05-28 Void [facility].; [facility] Work Phone: p.yel [facility].; [facility] Work Phone: clear Normal [facility].; [facility] Work Phone: 6 Normal [facility].; [facility] Work Phone: Negative Normal [facility].; [facility] Work Phone: 25 Abnormal [facility].; [facility] Work Phone: NORM Normal [facility].; [facility] Work Phone: 1.020 Normal [facility].; [facility], [facility]. Work Phone: 500 Abnormal [facility].; [facility], [facility]. Work Phone: >50 Normal 0 - 5 [facility].; [facility], [facility]. Work Phone: 5-10 Normal 0 - 3 [facility].; [facility] Work Phone: NONE Normal [facility].; [facility], [facility]. Work Phone: 3+ Normal [facility].; [facility], [facility]. Work Phone: MANY Normal [facility].; [facility] Work Phone: TRACE Normal [facility].; [facility], [facility]. Work Phone: Laboratory - Chemistry and C hemistry - challengeon 05-27-2020 Albumin [Mass/Vol] 3.3 g/dL Abnormal 3.4 - 5.0 g/dL [facility].; [facility], [facility]. Work Phone: Albumin [Mass/Vol] 0.9 g/dL Normal 0.9 - 1.6 [facility].; [facility], [facility]. Work Phone: ALT [Catalytic activity/Vol] 27 U/L Normal 14 - 59 U/L [facility].; [facility], [facility]. Work Phone: AST [Catalytic activity/Vol] 20 U/L Normal 13 - 39 U/L [facility].; [facility], [facility]. Work Phone: Bilirubin [Mass/Vol] 0.3 mg/dL Normal 0.2 - 1 .0 mg/dL [facility]; [facility] Work Phone: Calcium [Mass/Vol] 9.3 mg/dL Normal 8.5 - 10. 1 mg/dL [facility]; [facility] Work Phone: Chloride [Moles/Vol] 102 mmol/L Normal 98 - 10 7 mmol/L [facility]; [facility] Work Phone: CO2 [Moles/Vol] 24.0 mmol/L Normal 21.0 - 32.0 mmol/L [facility]; [facility] Work Phone: Creatinine [Mass/Vol] 0.8 mg/dL Normal 0.5 - 1.0 mg/dL [facility]; [facility] Work Phone: GFR/1.73 sq M.predicted among blacks MDRD (S/P/Bld) [Vol rate/Area] mL/min/{1.73_m2} Normal 60 - 999 {ML/MINUTE} [facility]; [facility] Work Phone: GFR/1.73 sq M.predicted MDRD (S/P/Bld) [Vol rate/Area] mL/min/{1.73_m2} Normal 60 - 999 {ML/MINUTE} [facility].; [facility], [facility]. Work Phone: Globulin (S) [Mass/Vol] 3.8 g/dL Normal 1.5 - 3.8 g/dL [facility]; [facility] Work Phone: Glucose [Mass/Vol] 160 mg/dL Abnormal 74 - 106 mg/dL [facility]; [facility] Work Phone: Lactate [Mass/Vol] 2.2 mmol/L Abnormal 0.4 - 2.0 mmol/L [facility]; [facility] Work Phone: Potassium [Moles/Vol] 3.6 mmol/L Normal 3.5 - 5.1 mmol/L [facility]; [facility] Work Phone: Protein [Mass/Vol] 7.1 g/dL Normal 6.4 - 8.2 g/dL [facility]; [facility] Work Phone: Sodium [Moles/Vol] 137 mmol/L Normal 136 - 145 mmol/L [facility]; [facility] Work Phone: Urea nitrogen (U) [Mass/Vol] 4.9 pg/mL Normal 0.0 - 51.4 pg/mL [facility]; [facility] Work Phone: Urea nitrogen (U) [Mass/Vol] 23 pg/mL Normal 0 - 125 pg/mL [facility]; [facility] Work Phone: Urea nitrogen [Mass/Vol] 11 mg/dL Normal 7 - 18 mg/dL [facility]; [facility] Work Phone: Urea nitrogen/Creatinine [Mass ratio] 14 {ratio} Normal 0 - 30 {ratio} [facility]; [facility] Work Phone: Laboratory - Hematology and Cell countson 05-27-2020 Basophils (Bld) [#/Vol] 0.00 {x10EE3/UL} Normal 0.00 - 0.10 {x10EE3/UL} [facility]; [facility] Work Phone: Basophils/100 WBC (Bld) 0.5 % Normal 0.0 - 2.0 % [facility]; [facility] Work Phone: Eosinophils (Bld) [#/Vol] 0.20 {x10EE3/UL} Normal 0.00 - 0.50 {x10EE3/UL} [facility]; [facility] Work Phone: Eosinophils/100 WBC (Bld) 1.9 % Normal 0.0 - 7.0 % [facility]; [facility] Work Phone: Erythrocyte distribution width (RBC) [Ratio] 14.1 % Normal 12.0 - 15.6 % [facility]; [facility] Work Phone: Hematocrit (Bld) [Volume fraction] 39.2 % Normal 34.0 - 46.0 % [facility]; [facility] Work Phone: Hemoglobin (Bld) [Mass/Vol] 13.4 g/dL Normal 12.0 - 16.0 g/dL [facility]; [facility] Work Phone: Lymphocytes (Bld) [#/Vol] 1.60 {x10EE3/UL} Normal 0.80 - 2.80 {x10EE3/UL} [facility]; [facility] Work Phone: Lymphocytes/100 WBC (Bld) 17.7 % Abnormal 20.0 - 45.0 % [facility]; [facility] Work Phone: MCH (RBC) [Entitic mass] 29 pg Normal 27 - 33 pg [facility]; [facility]. Work Phone: MCHC (RBC) [Mass/Vol] 34 {X10_3} Normal 32 - 3 6 {X10_3} [facility].; [facility]. Work Phone: MCV (RBC) [Entitic vol] 86 fL Normal 80 - 99 fL [facility]; [facility]. Work Phone: Monocytes (Bld) [#/Vol] 0.60 {x10EE3/UL} Normal 0.20 - 1.00 {x10EE3/UL} [facility]; [facility], [facility]. Work Phone: Monocytes/100 WBC (Bld) 6.5 % Normal 0.0 - 10.0 % [facility]; [facility] [facility]. Work Phone: Neutrophils (Bld) [#/Vol] 6.50 {x10EE3/UL} Normal 1.50 - 7.10 {x10EE3/UL} [facility]; [facility], [facility]. Work Phone: Neutrophils/100 WBC (Bld) 73.4 % Normal 46.0 - 76.0 % [facility]; [facility]. Work Phone: Platelet mean volume (Bld) [Entitic vol] 8.9 fL Normal 6.6 - 10.5 fL [facility]; [facility]. Work Phone: Platelets (Bld) [#/Vol] 260 {x10EE3/UL} Normal 150 - 450 {x10EE3/UL} [facility]; [facility]. Work Phone: RBC (Bld) [#/Vol] 4.58 {x_10EE6/UL} Normal 4.10 - 5.30 {x_10EE6/UL} [facility]. Work Phone: WBC (Bld) [#/Vol] 8.8 {x_10EE3/UL} Normal 4.5 - 10.8 {x_10EE3/UL} [facility].; [facility] Work Phone: Laboratory - Microbiology an d Antimicrobial susceptibilityon 05-27-2020 Bacteria identified Cx Nom (Bld) See Note Normal [facility].; [facility]. Work Phone: SARS-CoV-2 (COVID-19) Ag IA.rapid Ql (Resp) Negative Normal [facility].; [facility], [employer]. Work Phone: No Panel Informationon 05-27 Observation duration PASS Normal [facility].; [facility], [employer]. Work Phone: Observation duration YES Normal [facility].; [facility], [facility]. Work Phone: N/A Normal [facility].; [facility]. Work Phone: 299 ng/mL Abnormal 0 - 230 ng/mL [facility].; [facility]. Work Phone: YES Normal [facility].; [facility]. Work Phone: 117 U/L Abnormal 46 - 116 U/L [facility].; [facility], [employer]. Work Phone: 15 mmol/L Normal 10 - 20 mmol/L [facility].; [facility] Work Phone: 41 {years} Normal [facility]; [facility] Work Phone: Laboratory - Chemistry and C hemistry - challengeon 05-24-2020 Albumin [Mass/Vol] 3.2 g/dL Abnormal 3.4 - 5.0 g/dL [facility]; [facility] Work Phone: Albumin [Mass/Vol] 0.8 g/dL Abnormal 0.9 - 1.6 [facility]; [facility] Work Phone: ALT [Catalytic activity/Vol] 30 U/L Normal 14 - 59 U/L [facility]; [facility] Work Phone: AST [Catalytic activity/Vol] 18 U/L Normal 13 - 39 U/L [facility]; [facility] Work Phone: Bilirubin [Mass/Vol] 0.3 mg/dL Normal 0.2 - 1 .0 mg/dL [facility]; [facility] Work Phone: Calcium [Mass/Vol] 8.9 mg/dL Normal 8.5 - 10. 1 mg/dL [facility]; [facility] Work Phone: Chloride [Moles/Vol] 101 mmol/L Normal 98 - 10 7 mmol/L [facility]; [facility] Work Phone: CO2 [Moles/Vol] 29.7 mmol/L Normal 21.0 - 32.0 mmol/L [facility]; [facility] Work Phone: Creatinine [Mass/Vol] 0.8 mg/dL Normal 0.5 - 1.0 mg/dL [facility]; [facility] Work Phone: GFR/1.73 sq M.predicted among blacks MDRD (S/P/Bld) [Vol rate/Area] mL/min/{1.73_m2} Normal 60 - 999 {ML/MINUTE} [facility]; [facility] Work Phone: GFR/1.73 sq M.predicted MDRD (S/P/Bld) [Vol rate/Area] mL/min/{1.73_m2} Normal 60 - 999 {ML/MINUTE} [facility]; [facility] Work Phone: Globulin (S) [Mass/Vol] 4.1 g/dL Abnormal 1.5 - 3.8 g/dL [facility]; [facility], [facility]. Work Phone: Glucose [Mass/Vol] NORM Normal [facility] Work Phone: Glucose [Mass/Vol] 125 mg/dL Abnormal 74 - 106 mg/dL [facility]; [facility] Work Phone: Potassium [Moles/Vol] 4.1 mmol/L Normal 3.5 - 5.1 mmol/L [facility]; [facility] Work Phone: Protein [Mass/Vol] 7.3 g/dL Normal 6.4 - 8.2 g/dL [facility]; [facility] Work Phone: Sodium [Moles/Vol] 138 mmol/L Normal 136 - 145 mmol/L [facility]; [facility] Work Phone: Urea nitrogen [Mass/Vol] 11 mg/dL Normal 7 - 18 mg/dL [facility] HospitalKynet[facility]; [facility] Work Phone: Urea nitrogen/Creatinine [Mass ratio] 14 {ratio} Normal 0 - 30 {ratio} [facility].; [facility] Work Phone: Laboratory - Hematology and Cell countson 05-24-2020 Basophils (Bld) [#/Vol] 0.10 {x10EE3/UL} Normal 0.00 - 0.10 {x10EE3/UL} [facility]; [facility] Work Phone: Basophils/100 WBC (Bld) 0.9 % Normal 0.0 - 2.0 % [facility]; [facility] Work Phone: Eosinophils (Bld) [#/Vol] 0.10 {x10EE3/UL} Normal 0.00 - 0.50 {x10EE3/UL} [facility]; [facility] Work Phone: Eosinophils/100 WBC (Bld) 1.6 % Normal 0.0 - 7.0 % [facility]; [facility] Work Phone: Erythrocyte distribution width (RBC) [Ratio] 13.7 % Normal 12.0 - 15.6 % [facility].; [facility] Work Phone: Hematocrit (Bld) [Volume fraction] 38.6 % Normal 34.0 - 46.0 % [facility]; [facility] Work Phone: Hemoglobin (Bld) [Mass/Vol] 13.3 g/dL Normal 12.0 - 16.0 g/dL [facility]; [facility]. Work Phone: Lymphocytes (Bld) [#/Vol] 2.00 {x10EE3/UL} Normal 0.80 - 2.80 {x10EE3/UL} [facility].; [facility]. Work Phone: Lymphocytes/100 WBC (Bld) 22.1 % Normal 20.0 - 45.0 % [facility].; [facility]. Work Phone: MCH (RBC) [Entitic mass] 29 pg Normal 27 - 33 pg [facility].; [facility]. Work Phone: MCHC (RBC) [Mass/Vol] 34 {X10_3} Normal 32 - 3 6 {X10_3} [facility].; [facility]. Work Phone: MCV (RBC) [Entitic vol] 85 fL Normal 80 - 99 fL [facility].; [facility]. Work Phone: Monocytes (Bld) [#/Vol] 0.80 {x10EE3/UL} Normal 0.20 - 1.00 {x10EE3/UL} [facility].; [facility], [facility]. Work Phone: Monocytes/100 WBC (Bld) 8.3 % Normal 0.0 - 10.0 % [facility].; [facility], [facility]. Work Phone: Neutrophils (Bld) [#/Vol] 6.10 {x10EE3/UL} Normal 1.50 - 7.10 {x10EE3/UL} [facility].; [facility], [facility]. Work Phone: Neutrophils/100 WBC (Bld) 67.1 % Normal 46.0 - 76.0 % [facility].; [facility], [facility]. Work Phone: Platelet mean volume (Bld) [Entitic vol] 8.2 fL Normal 6.6 - 10.5 fL [facility].; [facility], [facility] Work Phone: Platelets (Bld) [#/Vol] 276 {x10EE3/UL} Normal 150 - 450 {x10EE3/UL} [facility].; [facility] Work Phone: RBC (Bld) [#/Vol] 4.56 {x_10EE6/UL} Normal 4.10 - 5.30 {x_10EE6/UL} [facility].; [facility], [facility] Work Phone: WBC (Bld) [#/Vol] 9.1 {x_10EE3/UL} Normal 4.5 - 10.8 {x_10EE3/UL} [facility].; [facility], [facility] Work Phone: No Panel Informationon 05-24 Observation duration YES Normal [facility].; [facility] Work Phone: R Normal [facility] [facility].; [facility], [facility] Work Phone: yellow Normal [facility].; [facility] Work Phone: SL. CLOUDY Abnormal [facility] [facility].; [facility], [facility] Work Phone: 7 Normal [facility] [facility].; [facility], [facility] Work Phone: 15 Abnormal [facility] [facility].; [facility], [facility] Work Phone: Negative Normal [facility] [place] - [facility] Work Phone: 25 Abnormal [facility].; [facility] Work Phone: NORM Normal [facility] [place] - [facility] Work Phone: 1.015 Normal [facility] [place] - [facility] Work Phone: 500 Abnormal [facility].; [facility] Work Phone: 26-50 Normal 0 - 5 [facility] [place] - [facility] Work Phone: 35-50 Normal 0 - 3 [facility] [place] - [facility] Work Phone: NONE Normal [facility] [place] - [facility] Work Phone: 2+ Normal [facility].; [facility] Work Phone: OCC Normal [facility].; [facility] Work Phone: N/A Normal [facility] [facility] Inc.; [facility], [facility] Work Phone: 111 U/L Normal 46 - 116 U/L [facility].; [facility] Work Phone: 11 mmol/L Normal 10 - 20 mmol/L [facility] [place] - [facility] Work Phone: 41 {years} Normal [facility] [place] - [facility] Work Phone: PASS Normal [facility].; [facility], [employer]. Work Phone: Laboratory - Chemistry and C hemistry - challengeon 05-18-2020 Bilirubin Ql (U) Negative Normal [facility].; [facility], [facility] Ketones Ql (U) Negative Normal [facility].; [facility], [facility] pH (U) 7.0 [pH] Normal [facility].; [facility], [facility] Specific gravity (U) [Rel density] 1.015 Normal [facility].; [facility], [facility] Laboratory - Hematology and Cell countson 05-18-2020 Hemoglobin Ql (U) Negative Normal [facility].; [facility] Laboratory - Microbiology an d Antimicrobial susceptibilityon 05-18-2020 Bacteria identified Cx Nom (U) See Note Normal [facility].; [facility], [facility] Laboratory - Specimen inform ationon 05-18-2020 Appearance (U) CLOUDY Abnormal [facility].; [facility], [facility] Color (U) YELLOW Normal [facility].; [facility], [facility] Laboratory - Urinalysison Glucose Test strip (U) [Mass/Vol] Negative Normal [facility].; [facility], [facility] Leukocyte esterase Test strip Ql (U) 3+ Abnormal [facility].; [facility], [facility] Nitrite Ql (U) Negative Normal [facility].; [facility], [facility] Protein Ql (U) TRACE Abnormal [facility].; [facility], [facility] No Panel Informationon 05-18 0.2 Normal [facility].; [facility], [facility] Positive Abnormal [facility].; [place] [employer] [facility] Laboratory - Chemistry and C hemistry - challengeon 12-04-2019 CRP [Mass/Vol] 2.45 mg/dL Abnormal 0.00 - 1.00 mg/dL [facility]; [facility]. Work Phone: Laboratory - Coagulationon aPTT Coag (Bld) [Time] 27.1 s Normal 25.4 - 38.4 {sec} [facility]; [facility], [facility]. Work Phone: No Panel Informationon 12-03 421 ng/mL Abnormal 0 - 230 ng/mL [facility]; [facility]. Work Phone: Laboratory - Chemistry and C hemistry - challengeon 12-03-2019 CRP [Mass/Vol] 3.60 mg/dL Abnormal 0.00 - 1.00 mg/dL [facility], [facility]. Work Phone: No Panel Informationon 12-02 373 ng/mL Abnormal 0 - 230 ng/mL [facility]; [facility], [facility]. Work Phone: Laboratory - Chemistry and C hemistry - challengeon 12-02-2019 Albumin [Mass/Vol] 3.6 g/dL Normal 3.4 - 4.8 g/dL [facility]; [facility], [facility]. Work Phone: Albumin [Mass/Vol] 1.4 g/dL Normal 0.9 - 1.6 [facility].; [facility], [facility]. Work Phone: ALT [Catalytic activity/Vol] 32 U/L Normal 8 - 35 U/L [facility]; [facility], [facility]. Work Phone: AST [Catalytic activity/Vol] 31 U/L Normal 13 - 39 U/L [facility]; [facility] Work Phone: Bilirubin [Mass/Vol] 0.3 mg/dL Normal 0.0 - 1 .5 mg/dL [facility]; [facility] Work Phone: Calcium [Mass/Vol] 8.5 mg/dL Abnormal 8.6 - 10. 2 mg/dL [facility]; [facility] Work Phone: Chloride [Moles/Vol] 103 mmol/L Normal 98 - 10 7 mmol/L [facility]; [facility] Work Phone: CO2 [Moles/Vol] 26.0 mmol/L Normal 21.0 - 31.0 mmol/L [facility]; [facility] Work Phone: Creatinine [Mass/Vol] 0.7 mg/dL Normal 0.6 - 1.2 mg/dL [facility]; [facility] Work Phone: GFR/1.73 sq M.predicted among blacks MDRD (S/P/Bld) [Vol rate/Area] mL/min/{1.73_m2} Normal 60 - 999 {ML/MINUTE} [facility]; [facility] Work Phone: GFR/1.73 sq M.predicted MDRD (S/P/Bld) [Vol rate/Area] mL/min/{1.73_m2} Normal 60 - 999 {ML/MINUTE} [facility].; [facility] Work Phone: Globulin (S) [Mass/Vol] 2.5 g/dL Normal 1.5 - 3.8 g/dL [facility]; [facility] Work Phone: Glucose [Mass/Vol] 115 mg/dL Abnormal 74 - 106 mg/dL [facility]; [facility] Work Phone: Glucose [Mass/Vol] NORM Normal [facility] Work Phone: Lactate [Mass/Vol] 0.8 mmol/L Normal 0.5 - 2.0 mmol/L [facility]; [facility] Work Phone: Lipase [Catalytic activity/Vol] 21.0 U/L Normal 18.0 - 51.0 U/L [facility]; [facility] Work Phone: Natriuretic peptide B (Bld) [Mass/Vol] 14 pg/mL Normal 1 - 100 pg/mL [facility]; [facility] Work Phone: Potassium [Moles/Vol] 3.7 mmol/L Normal 3.5 - 5.1 mmol/L [facility]; [facility] Work Phone: Protein [Mass/Vol] 6.1 g/dL Abnormal 6.4 - 8.3 g/dL [facility]; [facility] Work Phone: Sodium [Moles/Vol] 138 mmol/L Normal 136 - 145 mmol/L [facility]; [facility] Work Phone: Troponin I.cardiac Qn 0.01 ng/mL Normal 0.00 - 0.05 ng/mL [facility]; [facility] Work Phone: Urea nitrogen [Mass/Vol] 7 mg/dL Normal 6 - 20 mg/dL [facility]; [facility] Work Phone: Urea nitrogen/Creatinine [Mass ratio] 10 {ratio} Normal 0 - 30 {ratio} [facility]; [facility] Work Phone: Laboratory - Hematology and Cell countson 12-02-2019 Basophils (Bld) [#/Vol] 0.00 {x10EE3/UL} Normal 0.00 - 0.10 {x10EE3/UL} [facility]; [facility] Work Phone: Basophils/100 WBC (Bld) 0.4 % Normal 0.0 - 2.0 % [facility]; [facility] Work Phone: Eosinophils (Bld) [#/Vol] 0.00 {x10EE3/UL} Normal 0.00 - 0.50 {x10EE3/UL} [facility]; [facility] Work Phone: Eosinophils/100 WBC (Bld) 0.1 % Normal 0.0 - 7.0 % [facility]; [facility] Work Phone: Erythrocyte distribution width (RBC) [Ratio] 15.0 % Normal 12.0 - 15.6 % [facility]; [facility] Work Phone: Hematocrit (Bld) [Volume fraction] 37.3 % Normal 34.0 - 46.0 % [facility]; [facility] Work Phone: Hemoglobin (Bld) [Mass/Vol] 12.7 g/dL Normal 12.0 - 16.0 g/dL [facility]; [facility] Work Phone: Lymphocytes (Bld) [#/Vol] 1.10 {x10EE3/UL} Normal 0.80 - 2.80 {x10EE3/UL} [facility].; [facility]. Work Phone: Lymphocytes/100 WBC (Bld) 22.7 % Normal 20.0 - 45.0 % [facility]; [facility]. Work Phone: MCH (RBC) [Entitic mass] 28 pg Normal 27 - 33 pg [facility].; [facility]. Work Phone: MCHC (RBC) [Mass/Vol] 34 {X10_3} Normal 32 - 3 6 {X10_3} [facility].; [facility], [facility]. Work Phone: MCV (RBC) [Entitic vol] 83 fL Normal 80 - 99 fL [facility].; [facility]. Work Phone: Monocytes (Bld) [#/Vol] 0.40 {x10EE3/UL} Normal 0.20 - 1.00 {x10EE3/UL} [facility].; [facility], [facility]. Work Phone: Monocytes/100 WBC (Bld) 7.7 % Normal 0.0 - 10.0 % [facility].; [facility]. Work Phone: Neutrophils (Bld) [#/Vol] 3.20 {x10EE3/UL} Normal 1.50 - 7.10 {x10EE3/UL} [facility].; [facility], [facility]. Work Phone: Neutrophils/100 WBC (Bld) 69.1 % Normal 46.0 - 76.0 % [facility].; [facility] Work Phone: Platelet mean volume (Bld) [Entitic vol] 8.4 fL Normal 6.6 - 10.5 fL [facility] [employer]; [facility] Work Phone: Platelets (Bld) [#/Vol] 212 {x10EE3/UL} Normal 150 - 450 {x10EE3/UL} [facility].; [facility]. Work Phone: RBC (Bld) [#/Vol] 4.48 {x_10EE6/UL} Normal 4.10 - 5.30 {x_10EE6/UL} [facility]; [facility] Work Phone: WBC (Bld) [#/Vol] 4.7 {x_10EE3/UL} Normal 4.5 - 10.8 {x_10EE3/UL} [facility].; [facility]. Work Phone: Laboratory - Microbiology an d Antimicrobial susceptibilityon 12-02-2019 Bacteria identified Cx Nom (Bld) See Note Normal [facility] [employer]; [facility] Work Phone: Bacteria identified Cx Nom (U) See Note Normal [facility] [employer]; [facility]. Work Phone: FLUAV+FLUBV Ag Ql (Unsp spec) See Note Normal [facility] [employer]; [facility]. Work Phone: S. pyogenes Ag Ql (Throat) See Note Normal [facility] [employer]; [facility]. Work Phone: SARS-CoV-2 (COVID-19) Ag IA.rapid Ql (Resp) Negative Normal [facility]; [facility] Work Phone: Streptococcus.beta-he molytic Org specific cx Ql (Unsp spec) See Note Normal [employer] [facility], Inc. Work Phone: No Panel Informationon 12-01 Observation duration PASS Normal [employer].; [employer] [facility], Inc[facility] Work Phone: Observation duration YES Normal [facility] [facility] DepartmentVoodooVox.; [employer] [facility], Inc. Work Phone: Positive Abnormal [employer].; [employer] [facility], Inc. Work Phone: N/A Normal [employer].; [employer] [facility], Inc. Work Phone: 55 U/L Normal 38 - 126 U/L [facility] Department[facility].; [employer] [facility], Inc. Work Phone: 13 mmol/L Normal 10 - 20 mmol/L [facility] ICU Metrix.; [employer] [facility] [facility], Inc. Work Phone: 40 {years} Normal [employer].; [employer] [facility], Inc. Work Phone: UNSPECIFIED Normal [facility] ICU [employer].; [employer] [facility], Inc. Work Phone: p.yel [employer] natural.; [employer] [facility], Inc. Work Phone: sl.cloudy Normal [employer].; [employer] [facility] [employer] [facility], Inc. Work Phone: 7 Normal [place].; [employer] [facility], Inc. Work Phone: Negative Normal [facility] [employer] [facility] DepartmentVoodooVox.; [employer] [facility], Inc. Work Phone: NORM Normal [employer] [facility] DepartmentV[facility]ooVox.; [employer] [facility], Inc. Work Phone: [phone] 1.010 Normal [facility], [employer].; [facility], Inc. Work Phone: NOT INDICATED Normal [facility], Inc.; [facility], Inc. Work Phone: Laboratory - Chemistry and C hemistry - challengeon 12-01-2019 Bilirubin Ql (U) 1+ Abnormal [facility], Inc.; [facility], Inc. Ketones Ql (U) Negative Normal [facility], Inc.; [facility], Inc. pH (U) 5.0 [pH] Normal [facility] DepartmentV[facility]ox.; [facility], Inc. Specific gravity (U) [Rel density] 1.030 Abnormal [facility], [employer].; [facility], Inc. Laboratory - Hematology and Cell countson 12-01-2019 Hemoglobin Ql (U) Negative Normal [facility], [employer] [place] [facility], Inc. Laboratory - Specimen inform ationon 12-01-2019 Appearance (U) CLEAR Normal [facility] DepartmentV[facility]ox.; [facility], Inc. Color (U) YELLOW Normal [facility] DepartmentV[facility]Vox.; [facility], Inc. Laboratory - Urinalysison Glucose Test strip (U) [Mass/Vol] Negative Normal [facility], [employer].; [employer] [facility], Inc. Leukocyte esterase Test strip Ql (U) Negative Normal [facility], Inc.; [employer] [facility], Inc. Nitrite Ql (U) Negative Normal [facility], Inc.; [facility], Inc. Protein Ql (U) 1+ Abnormal [facility], Inc.; [facility], Inc[facility] No Panel Informationon 11-30 0.2 Normal [facility], Inc.; [employer] [facility], Inc. Positive Abnormal [facility], Inc.; [place] [employer] [facility], Inc. Laboratory - Chemistry and C hemistry - challengeon 08-13-2019 Albumin [Mass/Vol] 4.0 g/dL Normal 3.4 - 4.8 g/dL [facility]; [facility] Work Phone: Albumin [Mass/Vol] 1.4 g/dL Normal 0.9 - 1.6 [facility] Work Phone: ALT [Catalytic activity/Vol] 16 U/L Normal 8 - 35 U/L [facility]; [facility] Work Phone: AST [Catalytic activity/Vol] 16 U/L Normal 13 - 39 U/L [facility]; [facility] Work Phone: Bilirubin [Mass/Vol] 0.3 mg/dL Normal 0.0 - 1 .5 mg/dL [facility]; [facility] Work Phone: Calcium [Mass/Vol] 9.5 mg/dL Normal 8.6 - 10. 2 mg/dL [facility]; [facility] Work Phone: Chloride [Moles/Vol] 102 mmol/L Normal 98 - 10 7 mmol/L [facility]; [facility] Work Phone: CO2 [Moles/Vol] 25.5 mmol/L Normal 21.0 - 31.0 mmol/L [facility]; [facility] Work Phone: Creatinine [Mass/Vol] 0.8 mg/dL Normal 0.6 - 1.2 mg/dL [facility]; [facility] Work Phone: GFR/1.73 sq M.predicted among blacks MDRD (S/P/Bld) [Vol rate/Area] mL/min/{1.73_m2} Normal 60 - 999 {ML/MINUTE} [facility]; [facility] Work Phone: GFR/1.73 sq M.predicted MDRD (S/P/Bld) [Vol rate/Area] mL/min/{1.73_m2} Normal 60 - 999 {ML/MINUTE} [facility]; [facility] Work Phone: Globulin (S) [Mass/Vol] 2.8 g/dL Normal 1.5 - 3.8 g/dL [facility]; [facility] Work Phone: Glucose [Mass/Vol] NORM Normal [facility] Work Phone: Glucose [Mass/Vol] 107 mg/dL Abnormal 74 - 106 mg/dL [facility]; [facility] Work Phone: Lipase [Catalytic activity/Vol] 18.0 U/L Normal 18.0 - 51.0 U/L [facility]; [facility] Work Phone: Potassium [Moles/Vol] 4.2 mmol/L Normal 3.5 - 5.1 mmol/L [facility]; [facility] Work Phone: Protein [Mass/Vol] 6.8 g/dL Normal 6.4 - 8.3 g/dL [facility]; [facility] Work Phone: Sodium [Moles/Vol] 137 mmol/L Normal 136 - 145 mmol/L [facility]; [facility] Work Phone: Urea nitrogen [Mass/Vol] 14 mg/dL Normal 6 - 20 mg/dL [facility]; [facility] Work Phone: Urea nitrogen/Creatinine [Mass ratio] 18 {ratio} Normal 0 - 30 {ratio} [facility].; [facility], [facility]. Work Phone: Laboratory - Hematology and Cell countson 08-13-2019 Basophils (Bld) [#/Vol] 0.10 {x10EE3/UL} Normal 0.00 - 0.10 {x10EE3/UL} [facility].; [facility] Work Phone: Basophils/100 WBC (Bld) 1.0 % Normal 0.0 - 2.0 % [facility]; [facility]. Work Phone: Eosinophils (Bld) [#/Vol] 0.20 {x10EE3/UL} Normal 0.00 - 0.50 {x10EE3/UL} [facility].; [facility], [facility]. Work Phone: Eosinophils/100 WBC (Bld) 1.8 % Normal 0.0 - 7.0 % [facility]; [facility]. Work Phone: Erythrocyte distribution width (RBC) [Ratio] 14.8 % Normal 12.0 - 15.6 % [facility].; [facility]. Work Phone: Hematocrit (Bld) [Volume fraction] 36.7 % Normal 34.0 - 46.0 % [facility].; [facility] Work Phone: Hemoglobin (Bld) [Mass/Vol] 12.4 g/dL Normal 12.0 - 16.0 g/dL [facility]; [facility] Center[facility]. Work Phone: Lymphocytes (Bld) [#/Vol] 2.10 {x10EE3/UL} Normal 0.80 - 2.80 {x10EE3/UL} [facility].; [facility]. Work Phone: Lymphocytes/100 WBC (Bld) 21.7 % Normal 20.0 - 45.0 % [facility].; [facility]. Work Phone: MCH (RBC) [Entitic mass] 28 pg Normal 27 - 33 pg [facility].; [facility]. Work Phone: MCHC (RBC) [Mass/Vol] 34 {X10_3} Normal 32 - 3 6 {X10_3} [facility].; [facility]. Work Phone: MCV (RBC) [Entitic vol] 84 fL Normal 80 - 99 fL [facility].; [facility]. Work Phone: Monocytes (Bld) [#/Vol] 0.80 {x10EE3/UL} Normal 0.20 - 1.00 {x10EE3/UL} [facility].; [facility]. Work Phone: Monocytes/100 WBC (Bld) 8.0 % Normal 0.0 - 10.0 % [facility].; [facility]. Work Phone: Neutrophils (Bld) [#/Vol] 6.70 {x10EE3/UL} Normal 1.50 - 7.10 {x10EE3/UL} [facility].; [facility], [facility]. Work Phone: Neutrophils/100 WBC (Bld) 67.5 % Normal 46.0 - 76.0 % [facility].; [facility]. Work Phone: Platelet mean volume (Bld) [Entitic vol] 8.3 fL Normal 6.6 - 10.5 fL [facility].; [facility]. Work Phone: Platelets (Bld) [#/Vol] 309 {x10EE3/UL} Normal 150 - 450 {x10EE3/UL} [facility].; [facility], [facility]. Work Phone: RBC (Bld) [#/Vol] 4.40 {x_10EE6/UL} Normal 4.10 - 5.30 {x_10EE6/UL} [facility].; [facility], [employer]. Work Phone: WBC (Bld) [#/Vol] 9.9 {x_10EE3/UL} Normal 4.5 - 10.8 {x_10EE3/UL} [facility] DepartmentV[facility].; [place] [employer] [facility], [employer]. Work Phone: Laboratory - Microbiology an d Antimicrobial susceptibilityon 08-13-2019 Bacteria identified Cx Nom (Bld) See Note Normal [facility] DepartmentV[facility].; [facility], [facility]. Work Phone: Bacteria identified Cx Nom (U) See Note Normal [facility] DepartmentV[facility].; [facility]. Work Phone: Bacteria identified Cx Nom (Wound) See Note Normal [facility] DepartmentV[facility].; [facility], [facility]. Work Phone: No Panel Informationon 08-12 N/A Normal [facility] DepartmentV[facility].; [facility], [facility]. Work Phone: Void Normal [facility] DepartmentV[facility]Vox.; [place] [employer] [facility], [facility]. Work Phone: nunu Normal [facility], Inc.; [facility], Inc. Work Phone: clear Normal [facility], Inc.; [place] - [facility], Inc. Work Phone: 6 Normal [facility] [employer] [facility], Inc.; [place] - [facility], Inc. Work Phone: Negative Normal [facility] Care, Inc.; [place] - [facility], Inc. Work Phone: 5 Abnormal [facility], Inc.; [place] - [facility] Family [facility], Inc. Work Phone: NORM Normal [facility], Inc.; [place] - [facility], Inc. Work Phone: 1.020 Normal [facility], Inc.; [place] - [facility], Inc. Work Phone: 25 Abnormal [facility], Inc.; [place] - [facility], Inc. Work Phone: SEE BELOW Normal [facility], Inc.; [place] - [facility], Inc. Work Phone: 1-5 Normal 0 - 5 [facility] Pennsylvania[facility], Inc.; [place] - [facility], Inc. Work Phone: 0-5 Normal 0 - 3 [facility], Inc.; [place] - [facility], Inc. Work Phone: NONE Normal [facility] Pennsylvania[facility], Inc.; [place] - [facility], Inc. Work Phone: 3+ Normal [facility] Pennsylvania[facility], Inc.; [place] - [facility], Inc. Work Phone: MANY Normal [facility] [employer] [facility], Inc.; [place] - [facility], Inc. Work Phone: 2+ Normal [facility] [employer] [facility], Inc.; [place] - [facility], Inc. Work Phone: 77 U/L Normal 38 - 126 U/L [facility]; [facility] Work Phone: 14 mmol/L Normal 10 - 20 mmol/L [facility]; [facility] Work Phone: 40 {years} Normal [facility]; [facility] Work Phone: Laboratory - Hematology and Cell countson 08-03-2019 Basophils (Bld) [#/Vol] 0.00 {x10EE3/UL} Normal 0.00 - 0.10 {x10EE3/UL} [facility]; [facility] Work Phone: Basophils/100 WBC (Bld) 0.4 % Normal 0.0 - 2.0 % [facility]; [facility] Work Phone: Eosinophils (Bld) [#/Vol] 0.20 {x10EE3/UL} Normal 0.00 - 0.50 {x10EE3/UL} [facility]; [facility] Work Phone: Eosinophils/100 WBC (Bld) 2.2 % Normal 0.0 - 7.0 % [facility]; [facility] Work Phone: Erythrocyte distribution width (RBC) [Ratio] 14.5 % Normal 12.0 - 15.6 % [facility]; [facility] Work Phone: Hematocrit (Bld) [Volume fraction] 30.7 % Abnormal 34.0 - 46.0 % [facility]; [facility] Work Phone: Hemoglobin (Bld) [Mass/Vol] 10.5 g/dL Abnormal 12.0 - 16.0 g/dL [facility]; [facility]. Work Phone: Lymphocytes (Bld) [#/Vol] 1.40 {x10EE3/UL} Normal 0.80 - 2.80 {x10EE3/UL} [facility], [facility]. Work Phone: Lymphocytes/100 WBC (Bld) 15.4 % Abnormal 20.0 - 45.0 % [facility]; [facility], [facility]. Work Phone: MCH (RBC) [Entitic mass] 28 pg Normal 27 - 33 pg [facility]; [facility], [facility]. Work Phone: MCHC (RBC) [Mass/Vol] 34 {X10_3} Normal 32 - 3 6 {X10_3} [facility]; [facility], [facility]. Work Phone: MCV (RBC) [Entitic vol] 83 fL Normal 80 - 99 fL [facility]; [facility], [facility]. Work Phone: Monocytes (Bld) [#/Vol] 0.70 {x10EE3/UL} Normal 0.20 - 1.00 {x10EE3/UL} [facility].; [facility], [facility]. Work Phone: Monocytes/100 WBC (Bld) 8.0 % Normal 0.0 - 10.0 % [facility]; [facility], [facility]. Work Phone: Neutrophils (Bld) [#/Vol] 6.60 {x10EE3/UL} Normal 1.50 - 7.10 {x10EE3/UL} [facility]; [facility], [facility]. Work Phone: Neutrophils/100 WBC (Bld) 74.0 % Normal 46.0 - 76.0 % [facility] [employer]; [facility] Center[facility]. Work Phone: Platelet mean volume (Bld) [Entitic vol] 8.2 fL Normal 6.6 - 10.5 fL [facility].; [facility]. Work Phone: Platelets (Bld) [#/Vol] 222 {x10EE3/UL} Normal 150 - 450 {x10EE3/UL} [facility].; [facility] Center[facility]. Work Phone: RBC (Bld) [#/Vol] 3.70 {x_10EE6/UL} Abnormal 4.10 - 5.30 {x_10EE6/UL} [facility] DepartmentV[facility].; [facility]. Work Phone: WBC (Bld) [#/Vol] 8.9 {x_10EE3/UL} Normal 4.5 - 10.8 {x_10EE3/UL} [facility].; [facility]. Work Phone: No Panel Informationon 08-02 N/A Normal [facility] [employer]; [facility] Center[facility]. Work Phone: Laboratory - Hematology and Cell countson 08-02-2019 Basophils (Bld) [#/Vol] 0.00 {x10EE3/UL} Normal 0.00 - 0.10 {x10EE3/UL} [facility].; [facility]. Work Phone: Basophils/100 WBC (Bld) 0.6 % Normal 0.0 - 2.0 % [facility] DepartmentV[facility].; [facility]. Work Phone: Eosinophils (Bld) [#/Vol] 0.10 {x10EE3/UL} Normal 0.00 - 0.50 {x10EE3/UL} [facility]; [facility] Work Phone: Eosinophils/100 WBC (Bld) 1.7 % Normal 0.0 - 7.0 % [facility]; [facility] Work Phone: Erythrocyte distribution width (RBC) [Ratio] 14.6 % Normal 12.0 - 15.6 % [facility]; [facility] Work Phone: Hematocrit (Bld) [Volume fraction] 29.1 % Abnormal 34.0 - 46.0 % [facility]; [facility] Work Phone: Hemoglobin (Bld) [Mass/Vol] 9.7 g/dL Abnormal 12.0 - 16.0 g/dL [facility]; [facility]. Work Phone: Lymphocytes (Bld) [#/Vol] 1.30 {x10EE3/UL} Normal 0.80 - 2.80 {x10EE3/UL} [facility]; [facility] Work Phone: Lymphocytes/100 WBC (Bld) 18.1 % Abnormal 20.0 - 45.0 % [facility]; [facility], [facility]. Work Phone: MCH (RBC) [Entitic mass] 28 pg Normal 27 - 33 pg [facility]; [facility] Work Phone: MCHC (RBC) [Mass/Vol] 33 {X10_3} Normal 32 - 3 6 {X10_3} [facility]; [facility] Work Phone: MCV (RBC) [Entitic vol] 84 fL Normal 80 - 99 fL [facility].; [facility]. Work Phone: Monocytes (Bld) [#/Vol] 0.60 {x10EE3/UL} Normal 0.20 - 1.00 {x10EE3/UL} [facility].; [facility]. Work Phone: Monocytes/100 WBC (Bld) 8.4 % Normal 0.0 - 10.0 % [facility]; [facility]. Work Phone: Neutrophils (Bld) [#/Vol] 5.20 {x10EE3/UL} Normal 1.50 - 7.10 {x10EE3/UL} [facility].; [facility], [facility]. Work Phone: Neutrophils/100 WBC (Bld) 71.2 % Normal 46.0 - 76.0 % [facility]; [facility]. Work Phone: Platelet mean volume (Bld) [Entitic vol] 8.2 fL Normal 6.6 - 10.5 fL [facility] HospitalKynetx; [facility] Center[facility] [facility] Work Phone: Platelets (Bld) [#/Vol] 227 {x10EE3/UL} Normal 150 - 450 {x10EE3/UL} [facility]. Work Phone: RBC (Bld) [#/Vol] 3.45 {x_10EE6/UL} Abnormal 4.10 - 5.30 {x_10EE6/UL} [facility].; [facility], [facility]. Work Phone: WBC (Bld) [#/Vol] 7.4 {x_10EE3/UL} Normal 4.5 - 10.8 {x_10EE3/UL} [facility]; [facility] Work Phone: No Panel Informationon 08-01 N/A Normal [facility]; [facility] Work Phone: Laboratory - Hematology and Cell countson 08-01-2019 Basophils (Bld) [#/Vol] 0.00 {x10EE3/UL} Normal 0.00 - 0.10 {x10EE3/UL} [facility]; [facility] Work Phone: Basophils/100 WBC (Bld) 0.2 % Normal 0.0 - 2.0 % [facility]; [facility] Work Phone: Eosinophils (Bld) [#/Vol] 0.00 {x10EE3/UL} Normal 0.00 - 0.50 {x10EE3/UL} [facility]; [facility]. Work Phone: Eosinophils/100 WBC (Bld) 0.0 % Normal 0.0 - 7.0 % [facility]; [facility] Work Phone: Erythrocyte distribution width (RBC) [Ratio] 14.5 % Normal 12.0 - 15.6 % [facility]; [facility]. Work Phone: Hematocrit (Bld) [Volume fraction] 32.5 % Abnormal 34.0 - 46.0 % [facility]; [facility] Work Phone: Hemoglobin (Bld) [Mass/Vol] 10.9 g/dL Abnormal 12.0 - 16.0 g/dL [facility]; [facility] Work Phone: Lymphocytes (Bld) [#/Vol] 0.80 {x10EE3/UL} Normal 0.80 - 2.80 {x10EE3/UL} [facility].; [facility]. Work Phone: Lymphocytes/100 WBC (Bld) 5.9 % Abnormal 20.0 - 45.0 % [facility].; [facility]. Work Phone: MCH (RBC) [Entitic mass] 28 pg Normal 27 - 33 pg [facility].; [facility]. Work Phone: MCHC (RBC) [Mass/Vol] 34 {X10_3} Normal 32 - 3 6 {X10_3} [facility].; [facility]. Work Phone: MCV (RBC) [Entitic vol] 83 fL Normal 80 - 99 fL [facility].; [facility]. Work Phone: Monocytes (Bld) [#/Vol] 1.00 {x10EE3/UL} Normal 0.20 - 1.00 {x10EE3/UL} [facility].; [facility], [facility]. Work Phone: Monocytes/100 WBC (Bld) 7.5 % Normal 0.0 - 10.0 % [facility].; [facility]. Work Phone: Neutrophils (Bld) [#/Vol] 11.10 {x10EE3/UL} Abnormal 1.50 - 7.10 {x10EE3/UL} [facility].; [facility], [facility]. Work Phone: Neutrophils/100 WBC (Bld) 86.4 % Abnormal 46.0 - 76.0 % [facility].; [facility] [employer] Work Phone: Platelet mean volume (Bld) [Entitic vol] 8.5 fL Normal 6.6 - 10.5 fL [facility].; [facility] Work Phone: Platelets (Bld) [#/Vol] 283 {x10EE3/UL} Normal 150 - 450 {x10EE3/UL} [facility].; [facility]. Work Phone: RBC (Bld) [#/Vol] 3.91 {x_10EE6/UL} Abnormal 4.10 - 5.30 {x_10EE6/UL} [facility].; [facility]. Work Phone: WBC (Bld) [#/Vol] 12.9 {x_10EE3/UL} Abnormal 4.5 - 10.8 {x_10EE3/UL} [facility].; [facility]. Work Phone: No Panel Informationon 07-31 N/A [facility]; [facility] Work Phone: Laboratory - Blood bankon ABO and Rh group Nom (Bld BPU) Positive [facility]; [facility]. Work Phone: ABO group Nom (Bld) O [facility]; [facility]. Work Phone: ABO group Nom (Bld) Positive [facility]; [facility] Work Phone: Blood group antibody screen Ql Negative [facility]; [facility] Work Phone: Rh Nom (Bld) Positive [facility].; [employer] [facility] Work Phone: No Panel Informationon 07-30 Observation duration YES [employer] [facility] [employer] [facility].; [facility] Work Phone: Negative [employer] [facility] [employer] [facility].; [employer] [facility] Work Phone: PASS [employer] [facility] [employer] [facility].; [facility] Work Phone: [facility] [employer] [facility].; [facility] Work Phone: [phone] [employer] [facility].; [facility] Work Phone: 08/25/2019 [employer] [facility] [employer] [facility].; [employer] [facility] Work Phone: COMPATIBLE [employer] [facility] [employer] [facility].; [employer] [facility] Work Phone: [phone] [employer] [facility] [employer] [facility].; [employer] [facility], [employer]. Work Phone: Laboratory - Blood bankon ABO group Nom (Bld) O [employer] [facility] [employer] [facility].; [employer] [facility]. Work Phone: Blood group antibody screen Ql Negative [employer] [facility] [employer] [facility].; [employer] [facility] Work Phone: Rh Nom (Bld) Positive [employer] [facility] [employer] [facility].; [employer] [facility], [employer]. Work Phone: Laboratory - Chemistry and C hemistry - challengeon 07-29-2019 Calcium [Mass/Vol] 9.3 mg/dL Normal 8.6 - 10. 2 mg/dL [facility].; [facility] Work Phone: Chloride [Moles/Vol] 101 mmol/L Normal 98 - 10 7 mmol/L [facility]; [facility] Work Phone: CO2 [Moles/Vol] 24.0 mmol/L Normal 21.0 - 31.0 mmol/L [facility]; [facility] Work Phone: Creatinine [Mass/Vol] 0.7 mg/dL Normal 0.6 - 1.2 mg/dL [facility]; [facility] Work Phone: GFR/1.73 sq M.predicted among blacks MDRD (S/P/Bld) [Vol rate/Area] mL/min/{1.73_m2} Normal 60 - 999 {ML/MINUTE} [facility]; [facility] Work Phone: GFR/1.73 sq M.predicted MDRD (S/P/Bld) [Vol rate/Area] mL/min/{1.73_m2} Normal 60 - 999 {ML/MINUTE} [facility], [facility]. Work Phone: Glucose [Mass/Vol] 162 mg/dL Abnormal 74 - 106 mg/dL [facility]; [facility] Work Phone: Potassium [Moles/Vol] 3.9 mmol/L Normal 3.5 - 5.1 mmol/L [facility]; [facility] Work Phone: Sodium [Moles/Vol] 134 mmol/L Abnormal 136 - 145 mmol/L [facility]; [facility] Work Phone: Urea nitrogen [Mass/Vol] 11 mg/dL Normal 6 - 20 mg/dL [facility]; [facility] Work Phone: Laboratory - Hematology and Cell countson 07-29-2019 Basophils (Bld) [#/Vol] 0.10 {x10EE3/UL} Normal 0.00 - 0.10 {x10EE3/UL} [facility].; [facility] Work Phone: Basophils/100 WBC (Bld) 0.6 % Normal 0.0 - 2.0 % [facility]; [facility] Work Phone: Eosinophils (Bld) [#/Vol] 0.10 {x10EE3/UL} Normal 0.00 - 0.50 {x10EE3/UL} [facility].; [facility], [facility]. Work Phone: Eosinophils/100 WBC (Bld) 1.3 % Normal 0.0 - 7.0 % [facility]; [facility] Work Phone: Erythrocyte distribution width (RBC) [Ratio] 14.6 % Normal 12.0 - 15.6 % [facility]; [facility] Work Phone: Hematocrit (Bld) [Volume fraction] 39.1 % Normal 34.0 - 46.0 % [facility]; [facility]. Work Phone: Hemoglobin (Bld) [Mass/Vol] 13.1 g/dL Normal 12.0 - 16.0 g/dL [facility]; [facility] Work Phone: Lymphocytes (Bld) [#/Vol] 1.60 {x10EE3/UL} Normal 0.80 - 2.80 {x10EE3/UL} [facility]; [facility] Center[facility]. Work Phone: Lymphocytes/100 WBC (Bld) 18.1 % Abnormal 20.0 - 45.0 % [facility]; [facility]. Work Phone: MCH (RBC) [Entitic mass] 28 pg Normal 27 - 33 pg [facility].; [facility]. Work Phone: MCHC (RBC) [Mass/Vol] 34 {X10_3} Normal 32 - 3 6 {X10_3} [facility].; [facility], [facility]. Work Phone: MCV (RBC) [Entitic vol] 83 fL Normal 80 - 99 fL [facility]; [facility]. Work Phone: Monocytes (Bld) [#/Vol] 0.60 {x10EE3/UL} Normal 0.20 - 1.00 {x10EE3/UL} [facility].; [facility]. Work Phone: Monocytes/100 WBC (Bld) 6.6 % Normal 0.0 - 10.0 % [facility]; [facility]. Work Phone: Neutrophils (Bld) [#/Vol] 6.60 {x10EE3/UL} Normal 1.50 - 7.10 {x10EE3/UL} [facility].; [facility], [facility]. Work Phone: Neutrophils/100 WBC (Bld) 73.4 % Normal 46.0 - 76.0 % [facility]; [facility], [facility]. Work Phone: Platelet mean volume (Bld) [Entitic vol] 8.6 fL Normal 6.6 - 10.5 fL [facility]; [facility] Center[facility]. Work Phone: Platelets (Bld) [#/Vol] 273 {x10EE3/UL} Normal 150 - 450 {x10EE3/UL} [facility].; [facility], [employer]. Work Phone: RBC (Bld) [#/Vol] 4.70 {x_10EE6/UL} Normal 4.10 - 5.30 {x_10EE6/UL} [facility] DepartmentS[facility] [employer].; [facility], [facility] Work Phone: WBC (Bld) [#/Vol] 9.0 {x_10EE3/UL} Normal 4.5 - 10.8 {x_10EE3/UL} [facility] [place] [employer] [facility] Work Phone: No [facility] Informationon 07-28 1 % Normal 0 - 5 % [facility] DepartmentV[facility].; [facility] Work Phone: 61 % Normal 47 - 70 % [facility] DepartmentV[facility].; [facility], [employer]. Work Phone: 25 % Normal 20 - 40 % [facility] DepartmentV[facility].; [facility] Work Phone: 10 % Abnormal 0 - 8 % [facility] DepartmentV[facility].; [facility], [employer]. Work Phone: 3.0 % Normal 0 - 4 % [facility].; [facility], [employer]. Work Phone: NORMAL Normal [facility] DepartmentV[facility].; [facility], [employer]. Work Phone: 13 mmol/L Normal 10 - 20 mmol/L [facility] DepartmentV[facility].; [place] [employer] [facility], [employer]. Work Phone: 40 {years} Normal [facility].; [facility] Work Phone: Laboratory - Blood bankon ABO group Nom (Bld) O Normal [facility]; [facility]. Work Phone: Blood group antibody screen Ql Negative [facility].; [facility]. Work Phone: Rh Nom (Bld) Positive Normal [facility].; [facility]. Work Phone: Laboratory - Chemistry and C hemistry - challengeon 05-15-2019 Calcium [Mass/Vol] 9.4 mg/dL Normal 8.6 - 10. 2 mg/dL [facility].; [facility] Work Phone: Chloride [Moles/Vol] 102 mmol/L Normal 98 - 10 7 mmol/L [facility].; [facility]. Work Phone: CO2 [Moles/Vol] 22.6 mmol/L Normal 21.0 - 31.0 mmol/L [facility]; [facility], [facility]. Work Phone: Creatinine [Mass/Vol] 0.7 mg/dL Normal 0.6 - 1.2 mg/dL [facility]; [facility]. Work Phone: GFR/1.73 sq M.predicted among blacks MDRD (S/P/Bld) [Vol rate/Area] mL/min/{1.73_m2} Normal 60 - 999 {ML/MINUTE} [facility].; [facility], [facility]. Work Phone: GFR/1.73 sq M.predicted MDRD (S/P/Bld) [Vol rate/Area] mL/min/{1.73_m2} Normal 60 - 999 {ML/MINUTE} [facility]; [facility] Work Phone: Glucose [Mass/Vol] 134 mg/dL Abnormal 74 - 106 mg/dL [facility]; [facility] Work Phone: Potassium [Moles/Vol] 4.1 mmol/L Normal 3.5 - 5.1 mmol/L [facility]; [facility] Work Phone: Sodium [Moles/Vol] 135 mmol/L Abnormal 136 - 145 mmol/L [facility]; [facility] Work Phone: Urea nitrogen [Mass/Vol] 11 mg/dL Normal 6 - 20 mg/dL [facility]; [facility] Work Phone: Laboratory - Hematology and Cell countson 05-15-2019 Basophils (Bld) [#/Vol] 0.10 {x10EE3/UL} Normal 0.00 - 0.10 {x10EE3/UL} [facility]; [facility] Work Phone: Basophils/100 WBC (Bld) 0.7 % Normal 0.0 - 2.0 % [facility]; [facility] Work Phone: Eosinophils (Bld) [#/Vol] 0.20 {x10EE3/UL} Normal 0.00 - 0.50 {x10EE3/UL} [facility]; [facility]. Work Phone: Eosinophils/100 WBC (Bld) 1.8 % Normal 0.0 - 7.0 % [facility]; [facility] Work Phone: Erythrocyte distribution width (RBC) [Ratio] 14.8 % Normal 12.0 - 15.6 % [facility]; [facility] Work Phone: Hematocrit (Bld) [Volume fraction] 42.0 % Normal 34.0 - 46.0 % [facility]; [facility] Work Phone: Hemoglobin (Bld) [Mass/Vol] 13.8 g/dL Normal 12.0 - 16.0 g/dL [facility]; [facility] Work Phone: Lymphocytes (Bld) [#/Vol] 1.70 {x10EE3/UL} Normal 0.80 - 2.80 {x10EE3/UL} [facility]; [facility] Work Phone: Lymphocytes/100 WBC (Bld) 20.0 % Normal 20.0 - 45.0 % [facility]; [facility] Work Phone: MCH (RBC) [Entitic mass] 27 pg Normal 27 - 33 pg [facility]; [facility]. Work Phone: MCHC (RBC) [Mass/Vol] 33 {X10_3} Normal 32 - 3 6 {X10_3} [facility]; [facility], [facility]. Work Phone: MCV (RBC) [Entitic vol] 83 fL Normal 80 - 99 fL [facility]; [facility] Work Phone: Monocytes (Bld) [#/Vol] 0.70 {x10EE3/UL} Normal 0.20 - 1.00 {x10EE3/UL} [facility]; [facility] Work Phone: Monocytes/100 WBC (Bld) 8.6 % Normal 0.0 - 10.0 % [facility].; [facility]. Work Phone: Neutrophils (Bld) [#/Vol] 5.90 {x10EE3/UL} Normal 1.50 - 7.10 {x10EE3/UL} [facility].; [facility]. Work Phone: Neutrophils/100 WBC (Bld) 68.9 % Normal 46.0 - 76.0 % [facility].; [facility]. Work Phone: Platelet mean volume (Bld) [Entitic vol] 9.1 fL Normal 6.6 - 10.5 fL [facility].; [facility]. Work Phone: Platelets (Bld) [#/Vol] 302 {x10EE3/UL} Normal 150 - 450 {x10EE3/UL} [facility].; [facility], [employer]. Work Phone: RBC (Bld) [#/Vol] 5.06 {x_10EE6/UL} Normal 4.10 - 5.30 {x_10EE6/UL} [facility].; [facility], [facility]. Work Phone: WBC (Bld) [#/Vol] 8.5 {x_10EE3/UL} Normal 4.5 - 10.8 {x_10EE3/UL} [facility].; [facility], [employer]. Work Phone: No Panel Informationon 05-14 15 mmol/L Normal 10 - 20 mmol/L [facility]; [facility]. Work Phone: 40 {years} Normal [facility].; [facility], [employer] Work Phone: N/A Normal [facility]; [facility] Work Phone: Laboratory - Chemistry and C hemistry - challengeon 04-01-2019 Albumin [Mass/Vol] 4.1 g/dL Normal 3.4 - 4.8 g/dL [facility]; [facility] Work Phone: Albumin [Mass/Vol] 1.3 g/dL Normal 0.9 - 1.6 [facility] Work Phone: ALT [Catalytic activity/Vol] 14 U/L Normal 8 - 35 U/L [facility]; [facility] Work Phone: AST [Catalytic activity/Vol] 15 U/L Normal 13 - 39 U/L [facility]; [facility] Work Phone: Bilirubin [Mass/Vol] 0.3 mg/dL Normal 0.0 - 1 .5 mg/dL [facility]; [facility] Work Phone: Calcium [Mass/Vol] 9.1 mg/dL Normal 8.6 - 10. 2 mg/dL [facility]; [facility] Work Phone: Chloride [Moles/Vol] 103 mmol/L Normal 98 - 10 7 mmol/L [facility]; [facility] Work Phone: CO2 [Moles/Vol] 23.4 mmol/L Normal 21.0 - 31.0 mmol/L [facility]; [facility] Work Phone: Creatinine [Mass/Vol] 0.7 mg/dL Normal 0.6 - 1.2 mg/dL [facility]; [facility] Work Phone: GFR/1.73 sq M.predicted among blacks MDRD (S/P/Bld) [Vol rate/Area] mL/min/{1.73_m2} Normal 60 - 999 {ML/MINUTE} [facility].; [facility] Work Phone: GFR/1.73 sq M.predicted MDRD (S/P/Bld) [Vol rate/Area] mL/min/{1.73_m2} Normal 60 - 999 {ML/MINUTE} [facility].; [facility], [facility]. Work Phone: Globulin (S) [Mass/Vol] 3.1 g/dL Normal 1.5 - 3.8 g/dL [facility]; [facility], [facility]. Work Phone: Glucose [Mass/Vol] 112 mg/dL Abnormal 74 - 106 mg/dL [facility]; [facility]. Work Phone: Natriuretic peptide B (Bld) [Mass/Vol] 10 pg/mL Normal 1 - 100 pg/mL [facility]; [facility], [facility]. Work Phone: Potassium [Moles/Vol] 3.5 mmol/L Normal 3.5 - 5.1 mmol/L [facility]; [facility] Work Phone: Protein [Mass/Vol] 7.2 g/dL Normal 6.4 - 8.3 g/dL [facility]; [facility] Work Phone: Sodium [Moles/Vol] 136 mmol/L Normal 136 - 145 mmol/L [facility]; [facility], Inc[facility] Work Phone: Troponin I.cardiac Qn <0.01 Normal 0.00 - 0.05 ng/mL [facility]; [facility]. Work Phone: Urea nitrogen [Mass/Vol] 12 mg/dL Normal 6 - 20 mg/dL [facility].; [facility]. Work Phone: Urea nitrogen/Creatinine [Mass ratio] 17 {ratio} Normal 0 - 30 {ratio} [facility].; [facility]. Work Phone: Laboratory - Hematology and Cell countson 04-01-2019 Basophils (Bld) [#/Vol] 0.10 {x10EE3/UL} Normal 0.00 - 0.10 {x10EE3/UL} [facility].; [facility]. Work Phone: Basophils/100 WBC (Bld) 0.6 % Normal 0.0 - 2.0 % [facility]; [facility]. Work Phone: Eosinophils (Bld) [#/Vol] 0.20 {x10EE3/UL} Normal 0.00 - 0.50 {x10EE3/UL} [facility].; [facility]. Work Phone: Eosinophils/100 WBC (Bld) 2.0 % Normal 0.0 - 7.0 % [facility] HospitalKynetx; [facility]. Work Phone: Erythrocyte distribution width (RBC) [Ratio] 14.5 % Normal 12.0 - 15.6 % [facility] [place] [facility] Department[facility].; [facility]. Work Phone: Hematocrit (Bld) [Volume fraction] 39.7 % Normal 34.0 - 46.0 % [facility]; [facility]. Work Phone: Hemoglobin (Bld) [Mass/Vol] 13.2 g/dL Normal 12.0 - 16.0 g/dL [facility]; [facility] Work Phone: Lymphocytes (Bld) [#/Vol] 2.80 {x10EE3/UL} Normal 0.80 - 2.80 {x10EE3/UL} [facility]; [facility] Work Phone: Lymphocytes/100 WBC (Bld) 30.8 % Normal 20.0 - 45.0 % [facility]; [facility] Work Phone: MCH (RBC) [Entitic mass] 27 pg Normal 27 - 33 pg [facility]; [facility] Work Phone: MCHC (RBC) [Mass/Vol] 33 {X10_3} Normal 32 - 3 6 {X10_3} [facility]; [facility] Work Phone: MCV (RBC) [Entitic vol] 82 fL Normal 80 - 99 fL [facility]; [facility] Work Phone: Monocytes (Bld) [#/Vol] 0.60 {x10EE3/UL} Normal 0.20 - 1.00 {x10EE3/UL} [facility]; [facility] Work Phone: Monocytes/100 WBC (Bld) 7.1 % Normal 0.0 - 10.0 % [facility]; [facility] Work Phone: Neutrophils (Bld) [#/Vol] 5.40 {x10EE3/UL} Normal 1.50 - 7.10 {x10EE3/UL} [facility]fV[facility].; [facility] Work Phone: Neutrophils/100 WBC (Bld) 59.5 % Normal 46.0 - 76.0 % [facility]; [facility] Work Phone: Platelet mean volume (Bld) [Entitic vol] 8.4 fL Normal 6.6 - 10.5 fL [facility]; [facility] Work Phone: Platelets (Bld) [#/Vol] 344 {x10EE3/UL} Normal 150 - 450 {x10EE3/UL} [facility]; [facility] Work Phone: RBC (Bld) [#/Vol] 4.82 {x_10EE6/UL} Normal 4.10 - 5.30 {x_10EE6/UL} [facility]; [facility] Work Phone: WBC (Bld) [#/Vol] 9.0 {x_10EE3/UL} Normal 4.5 - 10.8 {x_10EE3/UL} [facility].; [facility]. Work Phone: Laboratory - Microbiology an d Antimicrobial susceptibilityon 04-01-2019 FLUAV+FLUBV Ag Ql (Unsp spec) See Note Normal [facility]; [facility] Work Phone: No Panel Informationon 04-01 N/A Normal [facility]; [facility] Work Phone: 349 ng/mL Abnormal 0 - 230 ng/mL [facility]; [facility] Work Phone: 75 U/L Normal 38 - 126 U/L [facility]; [facility]. Work Phone: 13 mmol/L Normal 10 - 20 mmol/L [facility]; [facility] Work Phone: 40 {years} Normal [facility]; [facility]. Work Phone: Laboratory - Chemistry and C hemistry - challengeon 08-19-2018 Albumin [Mass/Vol] 4.3 g/dL Normal 3.4 - 4.8 g/dL [facility]; [facility] Work Phone: Albumin [Mass/Vol] 1.5 g/dL Normal 0.9 - 1.6 [facility] Work Phone: ALT [Catalytic activity/Vol] 19 U/L Normal 8 - 35 U/L [facility]; [facility]. Work Phone: AST [Catalytic activity/Vol] 15 U/L Normal 13 - 39 U/L [facility]; [facility], [facility]. Work Phone: Bilirubin [Mass/Vol] 0.4 mg/dL Normal 0.0 - 1 .5 mg/dL [facility]; [facility]. Work Phone: Calcium [Mass/Vol] 9.2 mg/dL Normal 8.6 - 10. 2 mg/dL [facility]; [facility]. Work Phone: Chloride [Moles/Vol] 106 mmol/L Normal 98 - 10 7 mmol/L [facility]; [facility] Work Phone: CO2 [Moles/Vol] 25.9 mmol/L Normal 21.0 - 31.0 mmol/L [facility]; [facility] Work Phone: Creatinine [Mass/Vol] 0.7 mg/dL Normal 0.6 - 1.2 mg/dL [facility]; [facility] Work Phone: CRP [Mass/Vol] 1.80 mg/dL Abnormal 0.00 - 1.00 mg/dL [facility]; [facility] Work Phone: GFR/1.73 sq M.predicted among blacks MDRD (S/P/Bld) [Vol rate/Area] mL/min/{1.73_m2} Normal 60 - 999 {ML/MINUTE} [facility]; [facility] Work Phone: Glucose [Mass/Vol] 143 mg/dL Abnormal 74 - 106 mg/dL [facility]; [facility] Work Phone: Natriuretic peptide B (Bld) [Mass/Vol] 36 pg/mL Normal 1 - 100 pg/mL [facility]; [facility] Work Phone: Potassium [Moles/Vol] 3.7 mmol/L Normal 3.5 - 5.1 mmol/L [facility]; [facility] Work Phone: Protein [Mass/Vol] 7.2 g/dL Normal 6.4 - 8.3 g/dL [facility]; [facility] Work Phone: Sodium [Moles/Vol] 140 mmol/L Normal 136 - 145 mmol/L [facility]; [facility] Work Phone: Urea nitrogen [Mass/Vol] 7 mg/dL Normal 6 - 20 mg/dL [facility]Green[facility]; [facility] Work Phone: Urea nitrogen/Creatinine [Mass ratio] 10 {ratio} Normal 0 - 30 {ratio} [facility].; [facility] CenterV[facility]ooVox. Work Phone: Laboratory - Hematology and Cell countson 08-19-2018 Basophils (Bld) [#/Vol] 0.10 {x10EE3/UL} Normal 0.00 - 0.10 {x10EE3/UL} [facility].; [facility] Work Phone: Basophils/100 WBC (Bld) 1.0 % Normal 0.0 - 2.0 % [facility]; [facility] Work Phone: Eosinophils (Bld) [#/Vol] 0.10 {x10EE3/UL} Normal 0.00 - 0.50 {x10EE3/UL} [facility]fV[facility].; [facility], [facility]. Work Phone: Eosinophils/100 WBC (Bld) 1.6 % Normal 0.0 - 7.0 % [facility]; [facility] Work Phone: Hematocrit (Bld) [Volume fraction] 38.7 % Normal 34.0 - 46.0 % [facility]fV[facility]ooV[facility].; [facility]. Work Phone: Hemoglobin (Bld) [Mass/Vol] 13.4 g/dL Normal 12.0 - 16.0 g/dL [facility] HospitalKynetx; [facility] Work Phone: Lymphocytes (Bld) [#/Vol] 1.70 {x10EE3/UL} Normal 0.80 - 2.80 {x10EE3/UL} [facility]fGreen[facility] [employer]; [facility] [place] [facility] DepartmentV[facility]ooVox. Work Phone: Lymphocytes/100 WBC (Bld) 20.8 % Normal 20.0 - 45.0 % [facility]; [facility] Work Phone: MCH (RBC) [Entitic mass] 29 pg Normal 27 - 33 pg [facility] [place] [facility] DepartmentGreenDot [facility]; [facility] CenterV[facility]ooVox Work Phone: RBC (Bld) [#/Vol] 4.63 {x_10EE6/UL} Normal 4.10 - 5.30 {x_10EE6/UL} [facility] [place] [facility] DepartmentVoodooVox.; [facility] [place] [facility] DepartmentVoodooVox. Work Phone: Laboratory - Chemistry and C hemistry - challengeon 04-02-2018 Beta HCG ( test) Ql (U) Negative Normal [facility]; [facility] Bilirubin Ql (U) Negative Normal [facility].; [facility] [place] [facility], [employer]. Calcium [Mass/Vol] 9.2 mg/dL Normal 8.6 - 10. 2 mg/dL [facility]; [facility] CenterV[facility]ooVox. Chloride [Moles/Vol] 101 mmol/L Normal 98 - 10 7 mmol/L [facility].; [facility] CenterV[facility]ooVox. CO2 [Moles/Vol] 27.9 mmol/L Normal 21.0 - 31.0 mmol/L [facility].; [facility] [place] [facility] DepartmentS[facility]. Creatinine [Mass/Vol] 0.6 mg/dL Normal 0.6 - 1.2 mg/dL [facility].; [facility], [facility]. GFR/1.73 sq M.predicted among blacks MDRD (S/P/Bld) [Vol rate/Area] mL/min/{1.73_m2} Normal 60 - 999 {ML/MINUTE} [facility].; [facility], [facility]. GFR/1.73 sq M.predicted MDRD (S/P/Bld) [Vol rate/Area] mL/min/{1.73_m2} Normal 60 - 999 {ML/MINUTE} [facility] [place] [facility] DepartmentVoodooVox.; [employer] [facility], [facility]. Glucose [Mass/Vol] 92 mg/dL Normal 74 - 106 mg/dL [facility] [place] [facility] DepartmentVoodooVox.; [facility], [employer]. Ketones Ql (U) Negative Normal [facility] [employer] [place] [facility] DepartmentVoodooVox.; [facility], [facility]. pH (U) 7.0 [pH] Normal [facility] [place] [facility] DepartmentVoodooVox.; [facility], [employer]. Potassium [Moles/Vol] 3.9 mmol/L Normal 3.5 - 5.1 mmol/L [facility] [place] [facility] DepartmentVoodooVox.; [facility], [employer]. Sodium [Moles/Vol] 139 mmol/L Normal 136 - 145 mmol/L [facility] [place] [facility] DepartmentVoodooVox.; [facility], [employer]. Specific gravity (U) [Rel density] 1.010 Normal [facility].; [employer] [facility] [place] [facility] DepartmentVoodooVox. Urea nitrogen [Mass/Vol] 8 mg/dL Normal 6 - 20 mg/dL [facility] [place] [facility] DepartmentVoodooVox.; [employer] [facility], [employer]. Laboratory - Hematology and Cell countson 04-02-2018 Hemoglobin Ql (U) NON HEMOLYZED MODERATE Abnormal [facility] PennsylvaniaS[facility].; [employer] [facility] [place] [facility] DepartmentVoodooVox. Laboratory - Microbiology an d Antimicrobial susceptibilityon 04-02-2018 Bacteria identified Cx Nom (U) See Note Normal [employer].; [employer] [facility] [place] [facility] DepartmentSensbeat Inc. Laboratory - Specimen inform ationon 04-02-2018 Appearance (U) CLEAR Normal [employer].; [employer] [facility], [employer]. Color (U) YELLOW Normal [employer].; [employer] [facility], [employer]. Laboratory - Urinalysison Glucose Test strip (U) [Mass/Vol] Negative Normal [facility] PennsylvaniaMar[facility] [place] [facility] DepartmentVoodooVox.; [employer] [facility] [facility], Inc. Leukocyte esterase Test strip Ql (U) Negative Normal [employer].; [employer] [facility], Inc[facility] Nitrite Ql (U) Negative Normal [employer] [place] [facility] DepartmentSensbeat Inc.; [facility] [employer] [facility], Inc. Protein Ql (U) Negative Normal [employer] Inc.; [facility], Inc. No Panel Informationon 04-02 39 {years} Normal [facility] [employer].; [facility], Inc. 14 mmol/L Normal 10 - 20 mmol/L [facility] [employer].; [place] [employer] [facility], Inc. 0.2 Normal [facility] ICU [employer].; [facility], [employer]. Negative Normal [facility] ICU [employer].; [facility] [email or web address], Inc[employer] Laboratory - Hematology and Cell countson 01-04-2016 Basophils (Bld) [#/Vol] 0.00 {x10EE3/UL} Normal 0.00 - 0.10 {x10EE3/UL} [employer].; [employer] [facility] [employer] [facility], Inc[facility] Basophils/100 WBC (Bld) 0.5 % Normal 0.0 - 2.0 % [facility].; [facility], Inc. Eosinophils (Bld) [#/Vol] 0.10 {x10EE3/UL} Normal 0.00 - 0.50 {x10EE3/UL} [facility], [employer].; [facility], Inc. Eosinophils/100 WBC (Bld) 1.6 % Normal 0.0 - 7.0 % [employer].; [place] [employer] [facility] [employer] [facility], Inc. Erythrocyte distribution width (RBC) [Ratio] 14.8 % Normal 12.0 - 15.6 % [facility], [employer].; [facility] [employer] [facility], Inc. Hematocrit (Bld) [Volume fraction] 36.8 % Normal 34.0 - 46.0 % [facility], [employer].; [facility] [employer] [facility], Inc. Hemoglobin (Bld) [Mass/Vol] 12.3 g/dL Normal 12.0 - 16.0 g/dL [employer].; [facility], [facility]. Lymphocytes (Bld) [#/Vol] 1.30 {x10EE3/UL} Normal 0.80 - 2.80 {x10EE3/UL} [facility], [facility].; [facility], [facility]. Lymphocytes/100 WBC (Bld) 16.2 % Abnormal 20.0 - 45.0 % [facility], [facility].; [facility], [facility]. MCH (RBC) [Entitic mass] 28 pg Normal 27 - 33 pg [facility]ett[facility]fS[facility].; [facility], [facility]. MCHC (RBC) [Mass/Vol] 34 {X10_3} Normal 32 - 3 6 {X10_3} [facility], [facility].; [facility], Inc[facility] MCV (RBC) [Entitic vol] 82 fL Normal 80 - 99 fL [facility]fS[facility].; [facility], [facility]. Monocytes (Bld) [#/Vol] 0.40 {x10EE3/UL} Normal 0.20 - 1.00 {x10EE3/UL} [facility], [facility].; [facility], [facility]. Monocytes/100 WBC (Bld) 4.8 % Normal 0.0 - 10.0 % [facility]fS[facility].; [facility], [facility]. Neutrophils (Bld) [#/Vol] 6.10 {x10EE3/UL} Normal 1.50 - 7.10 {x10EE3/UL} [facility], [facility].; [facility], [facility]. Neutrophils/100 WBC (Bld) 76.9 % Abnormal 46.0 - 76.0 % [facility], [facility].; [facility], [facility]. Platelet mean volume (Bld) [Entitic vol] 9.6 fL Normal 6.6 - 10.5 fL [facility], [facility].; [facility], [facility]. Platelets (Bld) [#/Vol] 294 {x10EE3/UL} Normal 150 - 450 {x10EE3/UL} [facility], [facility].; [facility] RBC (Bld) [#/Vol] 4.49 {x_10EE6/UL} Normal 4.10 - 5.30 {x_10EE6/UL} [facility] WBC (Bld) [#/Vol] 8.0 {x_10EE3/UL} Normal 4.5 - 10.8 {x_10EE3/UL} [facility].; [facility] No Panel Informationon 01-03 N/A Normal [facility]; [facility] Laboratory - Chemistry and C hemistry - challengeon 11-16-2015 Cholesterol [Mass/Vol] 151 mg/dL Normal 0 - 200 mg/dL [facility].; [facility], [facility]. Cholesterol in HDL [Mass or moles/Vol] 53 mg/dL Normal 40 - 60 mg/dL [facility].; [facility], [facility]. Cholesterol in LDL [Mass/Vol] 69 mg/dL Normal 0 - 129 mg/dL [facility].; [facility], [facility]. Cholesterol.total/Cho lesterol in HDL [Mass ratio] 2.8 {ratio} Normal 0.0 - 5.0 [facility].; [facility], [facility]. Triglyceride [Mass/Vol] 144 mg/dL Normal 0 - 150 mg/dL [facility].; [facility], [facility]. Laboratory - Chemistry and C hemistry - challengeon 10-21-2015 Calcium [Mass/Vol] 9.0 mg/dL Normal 8.6 - 10. 2 mg/dL [facility].; [facility], [facility]. Chloride [Moles/Vol] 102 mmol/L Normal 98 - 10 7 mmol/L [facility].; [facility] CO2 [Moles/Vol] 28.0 mmol/L Normal 21.0 - 31.0 mmol/L [facility]ett[facility]fV[facility]ooVox.; [facility], [facility]. Creatinine [Mass/Vol] 0.7 mg/dL Normal 0.6 - 1.2 mg/dL [facility].; [facility], [facility]. GFR/1.73 sq M.predicted among blacks MDRD (S/P/Bld) [Vol rate/Area] mL/min/{1.73_m2} Normal 60 - 999 {ML/MINUTE} [facility].; [facility], [facility]. GFR/1.73 sq M.predicted MDRD (S/P/Bld) [Vol rate/Area] mL/min/{1.73_m2} Normal 60 - 999 {ML/MINUTE} [facility].; [facility], [facility]. Glucose [Mass/Vol] 86 mg/dL Normal 74 - 106 mg/dL [facility].; [facility], [facility]. Potassium [Moles/Vol] 4.1 mmol/L Normal 3.5 - 5.1 mmol/L [facility].; [facility], [facility]. Sodium [Moles/Vol] 138 mmol/L Normal 136 - 145 mmol/L [facility].; [facility], [facility]. Urea nitrogen [Mass/Vol] 10 mg/dL Normal 6 - 20 mg/dL [facility].; [facility], [facility]. Laboratory - Hematology and Cell countson 10-21-2015 HbA1c (Bld) [Mass fraction] 6.0 % Normal 4.4 - 6.4 % [facility].; [facility], [facility]. No Panel Informationon 10-20 12 mmol/L Normal 10 - 20 mmol/L [facility].; [facility], [facility]. 35 {years} Normal [facility].; [facility], [facility]. Laboratory - Chemistry and C hemistry - challengeon 10-05-2015 Albumin [Mass/Vol] 3.8 g/dL Normal 3.4 - 4.8 g/dL [facility].; [facility] Albumin [Mass/Vol] 1.5 g/dL Normal 0.9 - 1.6 [facility] ALT [Catalytic activity/Vol] 10 U/L Normal 8 - 35 U/L [facility]; [facility] [facility] No additional P-5'-P [Catalytic activity/Vol] 10 U/L Normal 8 - 35 U/L [facility]; [facility]. AST [Catalytic activity/Vol] 12 U/L Abnormal 13 - 39 U/L [facility]; [facility] Bilirubin [Mass/Vol] 0.2 mg/dL Normal 0.0 - 1 .5 mg/dL [facility]; [facility] Calcium [Mass/Vol] 9.0 mg/dL Normal 8.6 - 10. 2 mg/dL [facility]; [facility] Chloride [Moles/Vol] 106 mmol/L Normal 98 - 10 7 mmol/L [facility]; [facility] CO2 [Moles/Vol] 24.0 mmol/L Normal 21.0 - 31.0 mmol/L [facility]; [facility] Creatinine [Mass/Vol] 0.7 mg/dL Normal 0.6 - 1.2 mg/dL [facility]; [facility], [facility]. GFR/1.73 sq M.predicted among blacks MDRD (S/P/Bld) [Vol rate/Area] mL/min/{1.73_m2} Normal 60 - 999 {ML/MINUTE} [facility] GFR/1.73 sq M.predicted MDRD (S/P/Bld) [Vol rate/Area] mL/min/{1.73_m2} Normal 60 - 999 {ML/MINUTE} [facility]; [facility] Globulin (S) [Mass/Vol] 2.6 g/dL Normal 1.5 - 3.8 g/dL [facility] Glucose [Mass/Vol] 171 mg/dL Abnormal 74 - 106 mg/dL [facility] Potassium [Moles/Vol] 3.9 mmol/L Normal 3.5 - 5.1 mmol/L [facility] Protein [Mass/Vol] 6.4 g/dL Normal 6.4 - 8.3 g/dL [facility].; [facility] Sodium [Moles/Vol] 137 mmol/L Normal 136 - 145 mmol/L [facility] Urea nitrogen [Mass/Vol] 6 mg/dL Normal 6 - 20 mg/dL [facility] Urea nitrogen/Creatinine [Mass ratio] 9 {ratio} Normal 0 - 30 {ratio} [facility] No Panel Informationon 10-04 67 U/L Normal 38 - 126 U/L [facility]; [facility] 11 mmol/L Normal 10 - 20 mmol/L [facility] 36 {years} Normal [facility] Laboratory - Chemistry and C hemistry - challengeon 06-04-2015 Albumin [Mass/Vol] 1.3 g/dL Normal 0.9 - 1.6 [facility] Albumin [Mass/Vol] 3.7 g/dL Normal 3.4 - 4.8 g/dL [facility] ALT [Catalytic activity/Vol] 7 U/L Abnormal 8 - 35 U/L [facility] ALT No additional P-5'-P [Catalytic activity/Vol] 7 U/L Abnormal 8 - 35 U/L [facility]; [facility] Amylase [Catalytic activity/Vol] 30 U/L Normal 29 - 103 U/L [facility]; [facility] AST [Catalytic activity/Vol] 9 U/L Abnormal 13 - 39 U/L [facility]; [facility] Bilirubin [Mass/Vol] 0.3 mg/dL Normal 0.0 - 1 .5 mg/dL [facility]; [facility] Bilirubin Ql (U) Negative Normal [facility]; [facility] Calcium [Mass/Vol] 9.1 mg/dL Normal 8.6 - 10. 2 mg/dL [facility]; [facility] Chloride [Moles/Vol] 106 mmol/L Normal 98 - 10 7 mmol/L [facility]; [facility] CO2 [Moles/Vol] 25.0 mmol/L Normal 13.0 - 29.0 mmol/L [facility]; [facility] Creatinine [Mass/Vol] 0.7 mg/dL Normal 0.6 - 1.2 mg/dL [facility]; [facility], [facility]. GFR/1.73 sq M.predicted among blacks MDRD (S/P/Bld) [Vol rate/Area] mL/min/{1.73_m2} Normal 60 - 999 {ML/MINUTE} [facility], [facility]. GFR/1.73 sq M.predicted MDRD (S/P/Bld) [Vol rate/Area] mL/min/{1.73_m2} Normal 60 - 999 {ML/MINUTE} [facility] Globulin (S) [Mass/Vol] 2.8 g/dL Normal 1.5 - 3.8 g/dL [facility]; [facility] Glucose [Mass/Vol] 94 mg/dL Normal 74 - 106 mg/dL [facility]; [facility] Ketones Ql (U) Negative Normal [facility]; [facility] Lipase [Catalytic activity/Vol] 15.0 U/L Abnormal 18.0 - 51.0 U/L [facility]; [facility] pH (U) 5.0 [pH] Normal [facility]; [facility] Potassium [Moles/Vol] 4.4 mmol/L Normal 3.5 - 5.1 mmol/L [facility]; [facility] Protein [Mass/Vol] 6.5 g/dL Normal 6.4 - 8.3 g/dL [facility]; [facility] Sodium [Moles/Vol] 137 mmol/L Normal 136 - 145 mmol/L [facility]; [facility]. Specific gravity (U) [Rel density] 1.015 Normal [facility]; [facility] Urea nitrogen [Mass/Vol] 9 mg/dL Normal 6 - 20 mg/dL [facility]; [facility] Urea nitrogen/Creatinine [Mass ratio] 13 {ratio} Normal 0 - 30 {ratio} [facility]; [facility] Laboratory - Hematology and Cell countson 06-04-2015 Basophils (Bld) [#/Vol] 0.00 {x10EE3/UL} Normal 0.00 - 0.10 {x10EE3/UL} [facility]; [facility] Basophils/100 WBC (Bld) 0.4 % Normal 0.0 - 2.0 % [facility]; [facility] Eosinophils (Bld) [#/Vol] 0.10 {x10EE3/UL} Normal 0.00 - 0.50 {x10EE3/UL} [facility]; [facility] Eosinophils/100 WBC (Bld) 0.9 % Normal 0.0 - 7.0 % [facility]; [facility] Erythrocyte distribution width (RBC) [Ratio] 13.8 % Normal 12.0 - 15.6 % [facility]; [facility] ESR (Bld) [Velocity] 25 mm/h Normal 0 - 30 mm/h [facility]; [facility] Hematocrit (Bld) [Volume fraction] 36.2 % Normal 34.0 - 46.0 % [facility]; [facility] Hemoglobin (Bld) [Mass/Vol] 11.9 g/dL Abnormal 12.0 - 16.0 g/dL [facility]; [facility] Hemoglobin Ql (U) Negative Normal [facility]; [facility] Lymphocytes (Bld) [#/Vol] 1.40 {x10EE3/UL} Normal 0.80 - 2.80 {x10EE3/UL} [facility]; [facility] Lymphocytes/100 WBC (Bld) 24.9 % Normal 20.0 - 45.0 % [facility]; [facility] MCH (RBC) [Entitic mass] 27 pg Normal 27 - 33 pg [facility]; [facility] MCHC (RBC) [Mass/Vol] 33 {X10_3} Normal 32 - 3 6 {X10_3} [facility] MCV (RBC) [Entitic vol] 83 fL Normal 80 - 99 fL [facility], [facility]. Monocytes (Bld) [#/Vol] 0.50 {x10EE3/UL} Normal 0.20 - 1.00 {x10EE3/UL} [facility], [facility].; [facility], [facility]. Monocytes/100 WBC (Bld) 8.1 % Normal 0.0 - 10.0 % [facility], [facility].; [facility], [facility]. Neutrophils (Bld) [#/Vol] 3.70 {x10EE3/UL} Normal 1.50 - 7.10 {x10EE3/UL} [facility], [facility].; [facility], [facility]. Neutrophils/100 WBC (Bld) 65.7 % Normal 46.0 - 76.0 % [facility], [facility].; [facility], [facility]. Platelet mean volume (Bld) [Entitic vol] 9.0 fL Normal 6.6 - 10.5 fL [facility].; [facility], [facility]. Platelets (Bld) [#/Vol] 311 {x10EE3/UL} Normal 150 - 450 {x10EE3/UL} [facility], [facility].; [facility], [facility]. RBC (Bld) [#/Vol] 4.37 {x_10EE6/UL} Normal 4.10 - 5.30 {x_10EE6/UL} [facility], [facility].; [facility], [facility]. WBC (Bld) [#/Vol] 5.6 {x_10EE3/UL} Normal 4.5 - 10.8 {x_10EE3/UL} [facility], [facility].; [facility], [facility]. Laboratory - Specimen inform ationon 06-04-2015 Appearance (U) CLEAR [facility] Color (U) NUNU Normal [facility].; [facility], [facility]. Laboratory - Urinalysison Glucose Test strip (U) [Mass/Vol] Negative Normal [facility] Leukocyte esterase Test strip Ql (U) Negative Normal [facility].; [facility] Nitrite Ql (U) Negative Normal [facility] Protein Ql (U) TRACE Abnormal [facility].; [facility], [employer]. No Panel Informationon 06-03 36 {years} Normal [facility].; [facility] 10 mmol/L Normal 10 - 20 mmol/L [facility] 63 U/L Normal 38 - 126 U/L [facility].; [facility] 0.2 Normal [facility].; [facility], [employer]. Negative Normal [facility].; [facility] N/A Normal [facility].; [facility], [employer]. Laboratory - Chemistry and C hemistry - challengeon 02-27-2011 Beta HCG ( test) Ql (U) Negative Normal [facility].; [employer] [facility] Bilirubin Ql (U) Negative Normal [facility].; [facility] Ketones Ql (U) Negative Normal [facility].; [facility] pH (U) 5.0 [pH] Normal [facility].; [facility] Specific gravity (U) [Rel density] 1.020 Normal [facility].; [facility] Laboratory - Hematology and Cell countson 02-27-2011 Hemoglobin Ql (U) Negative Normal [facility].; [facility] Laboratory - Specimen inform ationon 02-27-2011 Appearance (U) CLEAR Normal [facility].; [facility]. Color (U) YELLOW Normal [facility].; [facility], [employer]. Laboratory - Urinalysison Glucose Test strip (U) [Mass/Vol] Negative Normal [facility].; [facility], [facility]. Leukocyte esterase Test strip Ql (U) 2+ Abnormal [facility].; [facility]. Nitrite Ql (U) Negative Normal [facility].; [facility] Protein Ql (U) Negative Normal [facility].; [facility], [employer]. No Panel Informationon 02-27 0.2 Normal [facility].; [facility]. Negative Normal [facility].; [facility]. Vital Signs Date Time Vital Sign Value Performing Clinician Faci lity 06-27-2024 09:51-0400 Body height 161.29 cm [facility].; [place] [facility] 06-27-2024 09:51-0400 Body mass index (BMI) [Ratio] 56.32 kg/m2 [facility]eth Kelley [facility].; [place] [facility]. 06-27-2024 09:51-0400 Body surface area Derived from formula 2.[address] [facility].; [place] [facility] 06-27-2024 09:51-0400 Body weight 146.51 kg Maribeth Kelley [facility].; [employer] [facility] 06-27-2024 09:51-0400 Diastolic blood pressure 70 mm[Hg] Mar[facility]eth Kelley [facility].; [employer] [facility]. Comment on above: Patient Position: Sitting; Cuff Location : Left Arm; Cuff Size: Standard 06-27-2024 09:51-0400 Heart rate 101 /min Maribeth Kelley [facility].; [employer]. Comment on above: Pattern: Regular 06-27-2024 09:51-0400 Systolic blood pressure 106 mm[Hg] Maribeth Kelley MA [facility], [facility].; [facility], [employer]. Comment on above: Patient Position: Sitting; Cuff Location : Left Arm; Cuff Size: Standard 02-28-2024 09:56-0500 Body height 161.29 cm Ashley Camilo SURVEILLANCE [employer] TECHNICIAN [facility] [employer] [facility], [facility].; [facility] 02-28-2024 09:56-0500 Body mass index (BMI) [Ratio] 54.92 kg/m2 Ashley Camilo [facility], [facility].; [facility], [facility]. 02-28-2024 09:56-0500 Body surface area Derived from formula 2.36 m2 [facility], [facility].; [facility], [facility]. 02-28-2024 09:56-0500 Body temperature 98.9 [degF] Ashleybrayan Camilo [facility], [facility].; [place] [facility], [employer]. Comment on above: Method: Tympanic 02-28-2024 09:56-0500 Body weight 142.88 kg Ashleybrayan Camilo SURVEILLANCE CAM[employer] TECHNICIAN [facility] 02-28-2024 09:56-0500 Diastolic blood pressure 84 mm[Hg] Ashleybrayan Camilo SURVEILLANCE CAM[employer] TECHNICIAN [facility], [facility].; [place] [facility], [employer]. Comment on above: Patient Position: Sitting; Cuff Location : Left Arm; Cuff Size: Standard 02-28-2024 09:56-0500 Heart rate 114 /min Ashley Camilo SURVEILLANCE CAMER[employer] TECHNICIAN [facility] [place] [facility]. Comment on above: Pattern: Regular 02-28-2024 09:56-0500 Inhaled oxygen concentration 21 % Ashley Camilo [facility], [facility].; [place] [facility], [employer]. Comment on above: Room air 02-28-2024 09:56-0500 SaO2% (BldA) [Mass fraction] 94 % Ashley Camilo SURVEILLANCE CAMER[employer] TECHNICIAN [facility], [facility].; [place] [facility], [employer]. 02-28-2024 09:56-0500 Systolic blood pressure 118 mm[Hg] Ashley Camilo [facility], [facility].; [facility]. Comment on above: Patient Position: Sitting; Cuff Location : Left Arm; Cuff Size: Standard 09-21-2023 11:00-0400 Body height 157.48 cm Nuvia Cohen RN [facility], [facility].; [facility] 09-21-2023 11:00-0400 Body mass index (BMI) [Ratio] 57.16 kg/m2 Nuvia Cohen RN [facility], [facility].; [facility], [facility]. 09-21-2023 11:00-0400 Body surface area Derived from formula 2.31 m2 Nuvia Cohen RN [facility], [facility].; [facility], [facility]. 09-21-2023 11:00-0400 Body temperature 98.4 [degF] Nuvia Cohen RN [facility], [facility].; [facility], [facility]. 09-21-2023 11:00-0400 Body weight 141.75 kg Nuvia Cohen RN [facility], [facility].; [facility], [facility]. 09-21-2023 11:00-0400 Diastolic blood pressure 77 mm[Hg] Nuvia Cohen RN [facility], [facility].; [facility] 09-21-2023 11:00-0400 Heart rate 85 /min Nuvia Cohen RN [facility], [facility].; [facility], [facility]. 09-21-2023 11:00-0400 Inhaled oxygen concentration 21 % Nuvia Cohen RN [facility], [facility].; [facility], [facility]. 09-21-2023 11:00-0400 SaO2% (BldA) [Mass fraction] 96 % Nuvia Cohen RN [facility], [facility].; [facility] 09-21-2023 11:00-0400 Systolic blood pressure 120 mm[Hg] Nuvia Cohen RN [facility] 05-03-2023 10:31-0400 Body height 157.48 cm Milady Rivera RN [facility], [facility].; [facility]. 05-03-2023 10:31-0400 Body mass index (BMI) [Ratio] 56.9 kg/m2 Milady Rivera RN [facility], [facility].; [facility]. 05-03-2023 10:31-0400 Body surface area Derived from formula 2.31 m2 Milady Rivera RN [facility], [facility].; [facility]. 05-03-2023 10:31-0400 Body weight 141.13 kg Milady Rivera RN [facility].; [facility]. 05-03-2023 10:31-0400 Diastolic blood pressure 67 mm[Hg] Milady Rivera RN [facility].; [facility]. 05-03-2023 10:31-0400 Heart rate 80 /min Milady Rivera RN [facility].; [facility]. 05-03-2023 10:31-0400 Systolic blood pressure 103 mm[Hg] Milady Rivera RN [facility].; [facility], [facility]. 01-05-2023 10:49-0500 Body height 157.5 cm Eliane Han MD Work Phone: [facility] [employer] 01-05-2023 10:49-0500 Body mass index (BMI) [Ratio] 56.15 kg/m2 Eliane Han MD Work Phone: [facility] [employer] 01-05-2023 10:49-0500 Body weight 139.25 kg Eliane Han MD Work Phone: [facility] [employer] 01-05-2023 10:49-0500 Diastolic blood pressure 84 mm[Hg] Eliane Han MD Work Phone: [facility] [employer] 01-05-2023 10:49-0500 Heart rate 76 /min Eliane Han MD Work Phone: [facility] [employer] 01-05-2023 10:49-0500 Systolic blood pressure 133 mm[Hg] Eliane Han MD Work Phone: [facility] 12-22-2022 10:19-0500 Body height 157.5 cm Eliane Han MD Work Phone: [facility] 12-22-2022 10:19-0500 Body mass index (BMI) [Ratio] 56.66 kg/m2 Eliane Han MD Work Phone: [facility] 12-22-2022 10:19-0500 Body weight 140.52 kg Eliane Han MD Work Phone: [facility] 12-22-2022 10:19-0500 Diastolic blood pressure 79 mm[Hg] Eliane Han MD Work Phone: [facility] 12-22-2022 10:19-0500 Heart rate 78 /min Eliane Han MD Work Phone: [facility] 12-22-2022 10:19-0500 Systolic blood pressure 116 mm[Hg] Eliane Han MD Work Phone: [facility] [employer] 12-18-2022 08:19-0500 Diastolic blood pressure 68 mm[Hg] Jean Paul Bailey MD Work Phone: [facility] 12-18-2022 08:19-0500 Heart rate 78 /min Jean Paul Bailey MD Work Phone: [facility] [employer] 12-18-2022 08:19-0500 Respiratory rate 18 /min Jean Paul Bailey MD Work Phone: [facility] [employer] 12-18-2022 08:19-0500 SaO2% (BldA) [Mass fraction] 96 % Jean Paul Bailey MD Work Phone: [facility] 12-18-2022 08:19-0500 Systolic blood pressure 131 mm[Hg] Jean Paul Bailey MD Work Phone: [facility] [employer] 12-18-2022 06:49-0500 Body height 157.5 cm Jean Paul Bailey MD Work Phone: [facility] 12-18-2022 06:49-0500 Body mass index (BMI) [Ratio] 56.15 kg/m2 Jean Paul Bailey MD Work Phone: [facility] 12-18-2022 06:49-0500 Body temperature 97.59 [degF] Jean Paul Bailey MD Work Phone: [facility] 12-18-2022 06:49-0500 Body weight 139.25 kg Jean Paul Bailey MD Work Phone: [facility] 12-15-2022 10:13-0500 Body height 157.48 cm Nuvia Cohen RN [facility]ovascular [facility], [employer] [facility], [employer] 12-15-2022 10:13-0500 Body mass index (BMI) [Ratio] 56.52 kg/m2 Nuvia Cohen RN [facility] 12-15-2022 10:13-0500 Body surface area Derived from formula 2.3 m2 Nuvia Cohen RN [facility], [employer] 12-15-2022 10:13-0500 Body temperature 99.2 [degF] Nuvia Cohen RN [facility] 12-15-2022 10:13-0500 Body weight 140.16 kg Nuvia Cohen RN [facility] 12-15-2022 10:13-0500 Diastolic blood pressure 69 mm[Hg] Nuvia Cohen RN [facility] [employer] [facility], [employer] 12-15-2022 10:13-0500 Heart rate 81 /min Nuvia Cohen RN [facility] [employer] [facility] 12-15-2022 10:13-0500 Inhaled oxygen concentration 21 % [facility] [employer] [facility], [employer]. 12-15-2022 10:13-0500 SaO2% (BldA) [Mass fraction] 99 % Nuvia Cohen RN [facility]. 12-15-2022 10:13-0500 Systolic blood pressure 102 mm[Hg] Nuvia Cohen RN [facility].; [facility], [facility]. 11-23-2022 14:10-0400 Body height 157.5 cm Eliane aHn MD Work Phone: [facility] [employer] 11-23-2022 14:10-0400 Body mass index (BMI) [Ratio] 55.93 kg/m2 Eliane Han MD Work Phone: [facility] [employer] 11-23-2022 14:10-0400 Body weight 138.71 kg Eliane Han MD Work Phone: [facility] [employer] 11-23-2022 14:10-0400 Diastolic blood pressure 72 mm[Hg] Eliane Han MD Work Phone: [facility] [employer] 11-23-2022 14:10-0400 Heart rate 77 /min Eliane Han MD Work Phone: [facility] [employer] 11-23-2022 14:10-0400 Systolic blood pressure 111 mm[Hg] Eliane Han MD Work Phone: [facility] [employer] 11-15-2022 10:57-0400 Body height 157.5 cm Rosana Travis TELESALES SPECIALIST - CN P Work Phone: [facility] [employer] 11-15-2022 10:57-0400 Body mass index (BMI) [Ratio] 56.66 kg/m2 Rosana Travis TELESALES SPECIALIST - PRODUCT OPERATIONS ASSOCIATE Work Phone: [facility] [employer] 11-15-2022 10:57-0400 Body temperature 97.81 [degF] Rosana Travis TELESALES SPECIALIST - CN P Work Phone: [facility] [employer] 11-15-2022 10:57-0400 Body weight 140.52 kg Rosana Travis TELESALES SPECIALIST - CN P Work Phone: [facility] 11-15-2022 10:57-0400 Diastolic blood pressure 77 mm[Hg] Rosana Travis TELESALES SPECIALIST - PRODUCT OPERATIONS ASSOCIATE Work Phone: [facility] 11-15-2022 10:57-0400 Heart rate 79 /min Rosana Travis TELESALES SPECIALIST - CN P Work Phone: [facility] 11-15-2022 10:57-0400 SaO2% (BldA) [Mass fraction] 93 % Rosana Travis TELESALES SPECIALIST - PRODUCT OPERATIONS ASSOCIATE Work Phone: [facility] 11-15-2022 10:57-0400 Systolic blood pressure 130 mm[Hg] Rosana Travis TELESALES SPECIALIST - PRODUCT OPERATIONS ASSOCIATE Work Phone: [facility] 10-30-2022 07:47-0400 Body height 157.48 cm UROLOGY PHYSICIAN-C Jessica Sarabiaer UROLOGY PHYSICIAN Work Phone: [facility] 10-30-2022 07:47-0400 Body mass index (BMI) [Ratio] 57.4 kg/m2 UROLOGY PHYSICIAN-C Jessica Sarabiaer UROLOGY PHYSICIAN Work Phone: [facility] 10-30-2022 07:47-0400 Body temperature 97.5 [degF] UROLOGY PHYSICIAN-C Jessica Sarabiaer UROLOGY PHYSICIAN Work Phone: [facility] 10-30-2022 07:47-0400 Body weight 142.42 kg UROLOGY PHYSICIAN-C Jessica Sarabiaer UROLOGY PHYSICIAN Work Phone: [facility] 10-30-2022 07:47-0400 Diastolic blood pressure 74 mm[Hg] UROLOGY PHYSICIAN-C Jessica Caintetter UROLOGY PHYSICIAN Work Phone: [facility] 10-30-2022 07:47-0400 Heart rate 82 /min UROLOGY PHYSICIAN-C Jessica Hoffmantter UROLOGY PHYSICIAN Work Phone: [facility] 10-30-2022 07:47-0400 Respiratory rate 20 /min UROLOGY PHYSICIAN-C Jessica Caintejanaeer UROLOGY PHYSICIAN Work Phone: [facility] 10-30-2022 07:47-0400 SaO2% (BldA) [Mass fraction] 96 % UROLOGY PHYSICIAN-C Jessica Kruger UROLOGY PHYSICIAN Work Phone: [facility] 10-30-2022 07:47-0400 Systolic blood pressure 119 mm[Hg] UROLOGY PHYSICIAN-C Jessica Kruger UROLOGY PHYSICIAN Work Phone: [facility] 10-20-2022 11:57-0400 Body height 157.[address] Work Phone: [facility] 10-20-2022 11:57-0400 Body mass index (BMI) [Ratio] 57.43 kg/m2 Aleisha Konic RD Work Phone: [facility] 10-20-2022 11:57-0400 Body weight 142.[address] Work Phone: [facility] 09-30-2022 14:23-0400 Body height 157.48 cm UROLOGY PHYSICIAN-C Jessica Kruger UROLOGY PHYSICIAN Work Phone: [facility] 09-30-2022 14:23-0400 Body mass index (BMI) [Ratio] 56.5 kg/m2 UROLOGY PHYSICIAN-C Jessica Kruger UROLOGY PHYSICIAN Work Phone: [facility] 09-30-2022 14:23-0400 Body temperature 96.9 [degF] UROLOGY PHYSICIAN-C Jessica Kruger UROLOGY PHYSICIAN Work Phone: [facility] 09-30-2022 14:23-0400 Body weight 140.16 kg UROLOGY PHYSICIAN-C Jessica Kruger UROLOGY PHYSICIAN Work Phone: [facility] 09-30-2022 14:23-0400 Diastolic blood pressure 83 mm[Hg] UROLOGY PHYSICIAN-C Jessica Kruger UROLOGY PHYSICIAN Work Phone: [facility] 09-30-2022 14:23-0400 Heart rate 89 /min UROLOGY PHYSICIAN-C Jessica Kruger UROLOGY PHYSICIAN Work Phone: [facility] 09-30-2022 14:23-0400 Respiratory rate 16 /min UROLOGY PHYSICIAN-C Jessica Hernandezarjuntetter UROLOGY PHYSICIAN Work Phone: [facility] 09-30-2022 14:23-0400 SaO2% (BldA) [Mass fraction] 97 % UROLOGY PHYSICIAN-C Jessica Hofstetter UROLOGY PHYSICIAN Work Phone: [facility] 09-30-2022 14:23-0400 Systolic blood pressure 142 mm[Hg] UROLOGY PHYSICIAN-C Jessica Hofstetter UROLOGY PHYSICIAN Work Phone: [facility] 09-19-2022 14:16-0400 Body mass index (BMI) [Ratio] 57.8 kg/m2 UROLOGY PHYSICIAN-C Jessica Hofstetter UROLOGY PHYSICIAN Work Phone: [facility] 09-19-2022 14:16-0400 Body weight 143.33 kg UROLOGY PHYSICIAN-C Jessica Hofstetter UROLOGY PHYSICIAN Work Phone: [facility] 09-19-2022 14:16-0400 Diastolic blood pressure 80 mm[Hg] UROLOGY PHYSICIAN-C Jessica Hofstetter UROLOGY PHYSICIAN Work Phone: [facility] 09-19-2022 14:16-0400 Heart rate 90 /min UROLOGY PHYSICIAN-C Jessica Hofstetter UROLOGY PHYSICIAN Work Phone: [facility] 09-19-2022 14:16-0400 Respiratory rate 22 /min UROLOGY PHYSICIAN-C Jessica Hofstetter UROLOGY PHYSICIAN Work Phone: [facility] 09-19-2022 14:16-0400 SaO2% (BldA) [Mass fraction] 97 % UROLOGY PHYSICIAN-C Jessica Hoarjuntetter UROLOGY PHYSICIAN Work Phone: [facility] 09-19-2022 14:16-0400 Systolic blood pressure 138 mm[Hg] UROLOGY PHYSICIAN-C Jessica Hofstetter UROLOGY PHYSICIAN Work Phone: [facility] 08-30-2022 13:00-0400 Body height 157.5 cm Jean Paul Bailey MD Work Phone: [facility] [employer] 08-30-2022 13:00-0400 Body mass index (BMI) [Ratio] 58.38 kg/m2 Jean Paul Bailey MD Work Phone: [facility] [employer] 08-30-2022 13:00-0400 Body temperature 97.2 [degF] Jean Paul Bailey MD Work Phone: [facility] 08-30-2022 13:00-0400 Body weight 144.79 kg Jean Paul Bailey MD Work Phone: [facility] 08-30-2022 13:00-0400 Diastolic blood pressure 76 mm[Hg] Jean Paul Bailey MD Work Phone: [facility] 08-30-2022 13:00-0400 Heart rate 90 /min Jean Paul Bailey MD Work Phone: [facility] 08-30-2022 13:00-0400 Respiratory rate 20 /min Jean Paul Bailey MD Work Phone: [facility] 08-30-2022 13:00-0400 Systolic blood pressure 106 mm[Hg] Jean Paul Bailey MD Work Phone: [facility] 08-25-2022 14:10-0400 Body height 157.48 cm Nuvia Cohen RN [facility], [employer] [facility], [facility]. 08-25-2022 14:10-0400 Body mass index (BMI) [Ratio] 58.86 kg/m2 Nuvia Cohen RN [facility], [facility]. 08-25-2022 14:10-0400 Body surface area Derived from formula 2.34 m2 Nuvia Cohen RN [facility], [facility]. 08-25-2022 14:10-0400 Body temperature 98.7 [degF] Nuvia Cohen RN [facility], [employer] 08-25-2022 14:10-0400 Body weight 145.97 kg Nuvia Cohen RN [facility], [employer]. 08-25-2022 14:10-0400 Diastolic blood pressure 70 mm[Hg] Nuvia Cohen RN [facility], [facility].; [facility], [facility]. 08-25-2022 14:10-0400 Heart rate 83 /min Nuvia Cohen RN [facility], [facility].; [facility], [facility]. 08-25-2022 14:10-0400 Inhaled oxygen concentration 21 % Nuvia Cohen RN [facility], [facility].; [facility], [facility]. 08-25-2022 14:10-0400 SaO2% (BldA) [Mass fraction] 97 % Nuvia Cohen RN [facility], [facility].; [facility], [facility]. 08-25-2022 14:10-0400 Systolic blood pressure 103 mm[Hg] Nuvia Cohen RN [facility], [facility].; [facility], [facility]. 06-30-2022 07:04-0400 Body height 157.48 cm UROLOGY PHYSICIAN-C Jessica Kruger UROLOGY PHYSICIAN Work Phone: [facility] 06-30-2022 07:04-0400 Body weight 144.24 kg UROLOGY PHYSICIAN-C Jessica Sarabiaer UROLOGY PHYSICIAN Work Phone: [facility] 06-29-2022 07:27-0400 Body mass index (BMI) [Ratio] 58.1 kg/m2 UROLOGY PHYSICIAN-C Jessica Sarabiaer UROLOGY PHYSICIAN Work Phone: [facility] 06-12-2022 15:43-0400 Body height 157.48 cm UROLOGY PHYSICIAN-C Jessica Sarabiaer UROLOGY PHYSICIAN Work Phone: [facility] 06-12-2022 15:43-0400 Body mass index (BMI) [Ratio] 58.1 kg/m2 UROLOGY PHYSICIAN-C Jessica Sarabiaer UROLOGY PHYSICIAN Work Phone: [facility] 06-12-2022 15:43-0400 Body weight 144.24 kg UROLOGY PHYSICIAN-C Jessica Hoffmantter UROLOGY PHYSICIAN Work Phone: [facility] 06-12-2022 15:43-0400 Diastolic blood pressure 80 mm[Hg] UROLOGY PHYSICIAN-C Jessica Sarabiaer UROLOGY PHYSICIAN Work Phone: [facility] 06-12-2022 15:43-0400 Heart rate 96 /min UROLOGY PHYSICIAN-C Jessica Sarabiaer UROLOGY PHYSICIAN Work Phone: [facility] 06-12-2022 15:43-0400 Respiratory rate 20 /min UROLOGY PHYSICIAN-C Jessica Sarabiaer UROLOGY PHYSICIAN Work Phone: [facility] 06-12-2022 15:43-0400 SaO2% (BldA) [Mass fraction] 95 % UROLOGY PHYSICIAN-C Jessica Sarabiaer UROLOGY PHYSICIAN Work Phone: [facility] 06-12-2022 15:43-0400 Systolic blood pressure 124 mm[Hg] UROLOGY PHYSICIAN-C Jessica Kruger UROLOGY PHYSICIAN Work Phone: [facility] 05-26-2022 15:01-0400 Body height 157.48 cm Idalmis Mccall RN [facility]. 05-26-2022 15:01-0400 Body mass index (BMI) [Ratio] 58.05 kg/m2 Idalmis Mccall RN [facility], [facility]. 05-26-2022 15:01-0400 Body surface area Derived from formula 2.33 m2 Idalmis Mccall RN [facility], [facility]. 05-26-2022 15:01-0400 Body weight 143.97 kg Idalmis Mccall RN [facility]. 05-26-2022 15:01-0400 Diastolic blood pressure 79 mm[Hg] Idalmis Mccall RN [facility], [facility].; [facility], [facility]. 05-26-2022 15:01-0400 Heart rate 80 /min Idalmis Mccall RN [facility]. 05-26-2022 15:01-0400 Systolic blood pressure 126 mm[Hg] Idalmis Mccall RN [facility].; [facility] 05-18-2022 18:14-0400 Diastolic blood pressure 78 mm[Hg] UROLOGY PHYSICIAN-C Jessica Kruger UROLOGY PHYSICIAN Work Phone: [facility] 05-18-2022 18:14-0400 Heart rate 94 /min UROLOGY PHYSICIAN-C Jessica Kruger UROLOGY PHYSICIAN Work Phone: [facility] 05-18-2022 18:14-0400 Respiratory rate 18 /min UROLOGY PHYSICIAN-C Jessica Kruger UROLOGY PHYSICIAN Work Phone: [facility] 05-18-2022 18:14-0400 SaO2% (BldA) [Mass fraction] 98 % UROLOGY PHYSICIAN-C Jessica Kruger UROLOGY PHYSICIAN Work Phone: [facility] 05-18-2022 18:14-0400 Systolic blood pressure 120 mm[Hg] UROLOGY PHYSICIAN-C Jessica Kruger UROLOGY PHYSICIAN Work Phone: [facility] 05-18-2022 16:17-0400 Body height 157.48 cm UROLOGY PHYSICIAN-C Jessica Kruger UROLOGY PHYSICIAN Work Phone: [facility] 05-18-2022 16:17-0400 Body mass index (BMI) [Ratio] 57.5 kg/m2 UROLOGY PHYSICIAN-C Jessica Kruger UROLOGY PHYSICIAN Work Phone: [facility] 05-18-2022 16:17-0400 Body temperature 97.2 [degF] UROLOGY PHYSICIAN-C Jessica Kruger UROLOGY PHYSICIAN Work Phone: [facility] 05-18-2022 16:17-0400 Body weight 142.65 kg UROLOGY PHYSICIAN-C Jessica Kruger UROLOGY PHYSICIAN Work Phone: [facility] 05-10-2022 13:17-0400 Body height 157.48 cm Crissy Schrader [facility].; [place] [facility] 05-10-2022 13:17-0400 Body mass index (BMI) [Ratio] 57.61 kg/m2 Crissy Schrader [facility].; [facility] 05-10-2022 13:17-040 Body surface area Derived from formula 2.32 m2 Crissy Schrader [facility], [facility].; [facility] 05-10-2022 13:17040 Body temperature 97.4 [degF] Crissy Schrader [facility], [facility].; [facility] 05-10-2022 13:17040 Body weight 142.88 kg Crissy Schrader [facility], [facility].; [facility] 05-10-2022 13:17-040 Diastolic blood pressure 76 mm[Hg] Crissy Schrader [facility].; [facility] 05-10-2022 13:17-0400 Heart rate 91 /min Crissy Schrader [facility], [facility].; [facility] 05-10-2022 13:17-0400 Inhaled oxygen concentration 21 % Crissy Schrader [facility], [facility].; [facility] 05-10-2022 13:17-0400 SaO2% (BldA) [Mass fraction] 95 % Crissy Schrader [facility], [facility].; [facility] 05-10-2022 13:17-0400 Systolic blood pressure 108 mm[Hg] [facility] 03-08-2022 14:04050 Body height 157.48 cm Idalmis Mccall RN [facility], [facility].; [facility] 03-08-2022 14:04-0500 Body mass index (BMI) [Ratio] 55.6 kg/m2 Idalmis Mccall RN [facility], [facility].; [facility]. 03-08-2022 14:04-0500 Body surface area Derived from formula 2.28 m2 Idalmis Mccall RN [facility].; [facility]. 03-08-2022 14:04-0500 Body weight 137.89 kg Idalmis Mccall RN [facility].; [facility]. 03-08-2022 14:04-0500 Diastolic blood pressure 76 mm[Hg] Idalmis Mccall RN [facility].; [facility]. 03-08-2022 14:04-0500 Heart rate 88 /min Idalmis Mccall RN [facility].; [facility]. 03-08-2022 14:04-0500 Systolic blood pressure 116 mm[Hg] Idalmis Mccall RN [facility].; [facility]. 10-24-2021 09:04-0400 Body temperature 98 [degF] [facility] Work Phone: 10-24-2021 09:04-0400 Diastolic blood pressure 65 mm[Hg] [facility] Work Phone: 10-24-2021 09:04-0400 Heart rate 71 /min [facility] Work Phone: 10-24-2021 09:04-0400 Respiratory rate 16 /min [facility] Work Phone: 10-24-2021 09:04-0400 SaO2% (BldA) [Mass fraction] 99 % [facility] Work Phone: 10-24-2021 09:04-0400 Systolic blood pressure 108 mm[Hg] [facility] Work Phone: 10-24-2021 07:05-0400 Body height 157.48 cm [facility] Work Phone: 10-24-2021 07:05-0400 Body mass index (BMI) [Ratio] 52.2 kg/m2 [facility] Work Phone: 10-24-2021 07:05-0400 Body weight 129.6 kg [facility] Work Phone: 09-06-2021 09:17-0400 Body temperature 97.7 [degF] Pako Appiah MD Work Phone: [facility] 09-06-2021 09:17-0400 Body weight 129.5 kg Pako Appiah MD Work Phone: [facility] 09-06-2021 09:17-0400 Diastolic blood pressure 51 mm[Hg] Pako Appiah MD Work Phone: [facility] 09-06-2021 09:17-0400 Heart rate 85 /min Pako Appiah MD Work Phone: [facility] 09-06-2021 09:17-0400 SaO2% (BldA) [Mass fraction] 96 % Pako Appiah MD Work Phone: [facility] 09-06-2021 09:17-0400 Systolic blood pressure 106 mm[Hg] Pako Appiah MD Work Phone: [facility] 08-23-2021 13:32-0400 Body height 157.5 cm Pako Appiah MD Work Phone: [facility] 08-23-2021 13:32-0400 Body temperature 97.2 [degF] Pako pApiah MD Work Phone: [facility] 08-23-2021 13:32-0400 Body weight 129.5 kg Pako Appiah MD Work Phone: [facility] 08-23-2021 13:32-0400 Diastolic blood pressure 62 mm[Hg] Pako Appiah MD Work Phone: [facility] 08-23-2021 13:32-0400 Heart rate 89 /min Pako Appiah MD Work Phone: [facility] 08-23-2021 13:32-0400 SaO2% (BldA) [Mass fraction] 100 % Pako Appiah MD Work Phone: [facility] 08-23-2021 13:32-0400 Systolic blood pressure 99 mm[Hg] Pako Appiah MD Work Phone: [facility] 07-25-2021 15:37-0400 Body height 157.48 cm Nuvia Cohen RN [facility], [employer] [facility] 07-25-2021 15:37-0400 Body mass index (BMI) [Ratio] 54.14 kg/m2 Nuvia Cohen RN [facility].; [facility], [facility]. 07-25-2021 15:37-0400 Body surface area Derived from formula 2.26 m2 Nuvia Cohen RN [facility], [facility].; [facility], [facility]. 07-25-2021 15:37-0400 Body temperature 99.2 [degF] Nuvia Cohen RN [facility], [facility].; [facility], [facility]. 07-25-2021 15:37-0400 Body weight 134.27 kg Nuvia Cohen RN [facility], [facility].; [facility], [facility]. 07-25-2021 15:37-0400 Diastolic blood pressure 65 mm[Hg] Nuvia Cohen RN [facility], [employer] [facility] 07-25-2021 15:37-0400 Heart rate 90 /min Nuvia Cohen RN [facility].; [facility], [facility]. 07-25-2021 15:37-0400 Inhaled oxygen concentration 21 % Nuvia Cohen RN [facility], [facility].; [facility], [facility]. 07-25-2021 15:37-0400 SaO2% (BldA) [Mass fraction] 92 % Nuvia Cohen RN [facility], [facility].; [facility] 07-25-2021 15:37-0400 Systolic blood pressure 94 mm[Hg] Nuvia Cohen RN [facility].; [facility] 06-01-2021 13:23-0400 Body height 157.48 cm CRUZ SINCLAIR RN [facility], [facility].; [facility] 06-01-2021 13:23-0400 Body mass index (BMI) [Ratio] 54.47 kg/m2 CRUZ GRATE RN [facility].; [facility], [facility] 06-01-2021 13:23-0400 Body surface area Derived from formula 2.26 m2 CRUZ GRATE RN [facility].; [facility], Inc. 06-01-2021 13:23-0400 Body weight 135.08 kg CRUZ GRATE RN [facility], [facility].; [facility], [facility]. 06-01-2021 13:23-0400 Diastolic blood pressure 71 mm[Hg] CRUZ GRATE RN [facility], [facility].; [facility], Inc. 06-01-2021 13:23-0400 Heart rate 84 /min CRUZ GRATE RN [facility], [facility].; [facility], Inc. 06-01-2021 13:23-0400 Systolic blood pressure 106 mm[Hg] CRUZ GRATE RN [facility], [facility].; [facility], [facility]. 03-09-2021 13:31-0500 Body height 157.48 cm Nuvia Cohen RN [facility], [facility].; [facility], Inc. 03-09-2021 13:31-0500 Body mass index (BMI) [Ratio] 53.04 kg/m2 Nuvia Cohen RN [facility], Inc.; [facility], Inc. 03-09-2021 13:31-0500 Body surface area Derived from formula 2.24 m2 Nuvia Cohen RN [facility], Inc.; [facility], Inc. 03-09-2021 13:31-0500 Body temperature 98.9 [degF] Nuvia Cohen RN [facility], Inc.; [facility], Inc. 03-09-2021 13:31-0500 Body weight 131.54 kg Nuvia Cohen RN [facility], Inc.; [facility], Inc. 03-09-2021 13:31-0500 Diastolic blood pressure 69 mm[Hg] Nuvia Cohen RN [facility], Inc.; [facility], Inc. 03-09-2021 13:31-0500 Heart rate 90 /min Nuvia Cohen RN [facility], Inc.; [facility], Inc. 03-09-2021 13:31-0500 Inhaled oxygen concentration 21 % Nuvia Cohen RN [facility], Inc.; [facility], Inc. 03-09-2021 13:31-0500 SaO2% (BldA) [Mass fraction] 98 % Nuvia Cohen RN [facility], Inc.; [facility], Inc. 03-09-2021 13:31-0500 Systolic blood pressure 101 mm[Hg] Nuvia Cohen RN [facility], Inc.; [facility], Inc. 11-24-2020 13:42-0400 Diastolic blood pressure 81 mm[Hg] Idalmis Mccall RN [facility], Inc.; [facility], Inc. 11-24-2020 13:42-0400 Heart rate 82 /min Idalmis Mccall RN [facility], Inc.; [facility], Inc. 11-24-2020 13:42-0400 Inhaled oxygen concentration 21 % Idalmis Mccall RN [facility], Inc.; [facility], Inc. 11-24-2020 13:42-0400 SaO2% (BldA) [Mass fraction] 96 % Idalmis Mccall RN [facility], Inc.; [facility], Inc. 11-24-2020 13:42-0400 Systolic blood pressure 124 mm[Hg] Idalmis Mccall RN [facility], Inc.; [facility], Inc. 10-27-2020 10:27-0400 Body height 157.48 cm Nuvia Cohen RN [facility], Inc.; [facility], Inc. 10-27-2020 10:27-0400 Body mass index (BMI) [Ratio] 54.87 kg/m2 Nuvia Cohen RN [facility], Inc.; [facility], Inc. 10-27-2020 10:27-0400 Body surface area Derived from formula 2.27 m2 Nuvia Cohen RN [facility], Inc.; [facility], Inc. 10-27-2020 10:270400 Body weight 136.08 kg Nuvia Cohen RN [facility], [facility].; [facility], Inc. 10-27-2020 10:27-0400 Diastolic blood pressure 65 mm[Hg] Nuvia Cohen RN [facility], Inc.; [facility], [facility]. 10-27-2020 10:27-0400 Heart rate 80 /min Nuvia Cohen RN [facility], Inc.; [facility], [facility]. 10-27-2020 10:270400 Inhaled oxygen concentration 21 % Nuvia Cohen RN [facility], [facility].; [facility], [facility]. 10-27-2020 10:27-0400 SaO2% (BldA) [Mass fraction] 97 % Nuvia Cohen RN [facility], [facility].; [facility], Inc. 10-27-2020 10:27-0400 Systolic blood pressure 99 mm[Hg] Nuvia Cohen RN [facility], Inc.; [facility], [facility]. 07-30-2020 10:120400 Body height 157.48 cm Nuvia Cohen RN [facility], [facility].; [facility], [facility]. 07-30-2020 10:12-0400 Body mass index (BMI) [Ratio] 57.61 kg/m2 Nuvia Cohen RN [facility], Inc.; [facility], Inc. 07-30-2020 10:120400 Body surface area Derived from formula 2.32 m2 Nuvia Cohen RN [facility], Inc.; [facility], Inc. 07-30-2020 10:12-0400 Body weight 142.88 kg Nuvia Cohen RN [facility], Inc.; [facility], Inc. 07-30-2020 10:12-0400 Diastolic blood pressure 82 mm[Hg] Nuvia Cohen RN [facility], Inc.; [facility], Inc. 07-30-2020 10:12-0400 Heart rate 75 /min Nuvia Cohen RN [facility], Inc.; [facility], Inc. 07-30-2020 10:12-0400 Systolic blood pressure 133 mm[Hg] Nuvia Cohen RN [facility], Inc.; [facility], Inc. 07-21-2020 09:040 Body height 157.48 cm Idalmis Mccall RN [facility], Inc.; [facility], Inc. 07-21-2020 09:210400 Body mass index (BMI) [Ratio] 58.27 kg/m2 Idalmis Mccall RN [facility], Inc.; [facility], Inc. 07-21-2020 09:21-0400 Body surface area Derived from formula 2.33 m2 Idalmis Mccall RN [facility], Inc.; [facility], Inc. 07-21-2020 09:210400 Body temperature 98.2 [degF] Idalmis Mccall RN [facility], Inc.; [facility], [facility]. 07-21-2020 09:210400 Body weight 144.52 kg Idalmis Mccall RN [facility], Inc.; [facility], Inc. 07-21-2020 09:21-0400 Diastolic blood pressure 85 mm[Hg] Idalmis Mccall RN [facility], Inc.; [facility], Inc. 07-21-2020 09:21-0400 Heart rate 88 /min Idalmis Mccall RN [facility], Inc.; [facility], Inc[facility] 07-21-2020 09:21-0400 Systolic blood pressure 119 mm[Hg] Idalmis Mccall RN [facility], Inc.; [facility]. 05-31-2020 10:40-0400 Body height 157.48 cm Milady Rivera RN [facility], [facility].; [facility], [facility]. 05-31-2020 10:40-0400 Body mass index (BMI) [Ratio] 57.98 kg/m2 Milady Rivera RN [facility], [facility].; [facility]. 05-31-2020 10:40-0400 Body surface area Derived from formula 2.32 m2 Milady Rivera RN [facility], [facility].; [facility]. 05-31-2020 10:40-0400 Body temperature 98.1 [degF] Milady Rivera RN [facility], [facility].; [facility], [facility]. 05-31-2020 10:40-0400 Body weight 143.79 kg Milady Rivera RN [facility], [facility].; [facility], [facility]. 05-31-2020 10:40-0400 Diastolic blood pressure 79 mm[Hg] Milady Rivera RN [facility], [facility].; [facility], [facility]. 05-31-2020 10:40-0400 Heart rate 84 /min Milady Rivera RN [facility], [facility].; [facility]. 05-31-2020 10:40-0400 Inhaled oxygen concentration 21 % Milady Rivera RN [facility], [facility].; [facility], [facility]. 05-31-2020 10:40-0400 SaO2% (BldA) [Mass fraction] 96 % Milady Rivera RN [facility], [facility].; [facility], [facility]. 05-31-2020 10:40-0400 Systolic blood pressure 128 mm[Hg] Milady Rivera RN [facility], Inc.; [facility], [facility]. 05-18-2020 11:07-0400 Body height 157.48 cm Milady Rivera RN [facility], Inc.; [facility], Inc. 05-18-2020 11:07-0400 Body mass index (BMI) [Ratio] 58.35 kg/m2 Milady Rivera RN [facility], Inc.; [facility], Inc. 05-18-2020 11:07-0400 Body surface area Derived from formula 2.33 m2 Milady Rivera RN [facility], Inc.; [facility], Inc. 05-18-2020 11:07-0400 Body temperature 97.8 [degF] Milady Rivera RN [facility], Inc.; [facility], [facility]. 05-18-2020 11:07-0400 Body weight 144.7 kg Milady Rivera RN [facility], Inc.; [facility], [facility]. 05-18-2020 11:07-0400 Diastolic blood pressure 81 mm[Hg] Milady Rivera RN [facility], [facility].; [facility], [facility]. 05-18-2020 11:07-0400 Heart rate 92 /min Milady Rivera RN [facility], [facility].; [facility], [facility]. 05-18-2020 11:07-0400 Systolic blood pressure 127 mm[Hg] Milady Rivera RN [facility], Inc.; [facility], [facility]. 02-12-2020 10:44-0500 Body height 157.48 cm Milady Rivera RN [facility], [facility].; [facility], Inc. 02-12-2020 10:44-0500 Body mass index (BMI) [Ratio] 54.87 kg/m2 Milady Rivera RN [facility], Inc.; [facility], Inc. 02-12-2020 10:44-0500 Body surface area Derived from formula 2.27 m2 Milady Rivera RN [facility], Inc.; [facility], Inc. 02-12-2020 10:44-0500 Body weight 136.08 kg Milady Rivera RN [facility], Inc.; [facility], [facility]. 02-12-2020 10:44-0500 Diastolic blood pressure 70 mm[Hg] Milady Rivera RN [facility], Inc.; [facility], Inc. 02-12-2020 10:44-0500 Heart rate 87 /min Milady Rivera RN [facility], Inc.; [facility], [facility]. 02-12-2020 10:44-0500 Systolic blood pressure 105 mm[Hg] Milady Rivera RN [facility], Inc.; [facility], [facility]. 01-09-2020 11:38-0500 Body height 157.48 cm Milady Rivera RN [facility], Inc.; [facility], Inc. 01-09-2020 11:38-0500 Body mass index (BMI) [Ratio] 54.69 kg/m2 Milady Rivera RN [facility], Inc.; [facility], [facility]. 01-09-2020 11:38-0500 Body surface area Derived from formula 2.27 m2 Milady Rivera RN [facility], Inc.; [facility], Inc. 01-09-2020 11:38-0500 Body temperature 98.6 [degF] Milady Rivera RN [facility], Inc.; [facility], [facility]. 01-09-2020 11:38-0500 Body weight 135.63 kg Milady Rivera RN [facility], Inc.; [facility], [facility]. 12-01-2019 15:15-0400 Body height 157.48 cm Nuvia Cohen RN [facility], [facility].; [facility], Inc. 12-01-2019 15:15-0400 Body mass index (BMI) [Ratio] 54.69 kg/m2 Nuvia Cohen RN [facility], Inc.; [facility], [facility]. 12-01-2019 15:15-0400 Body surface area Derived from formula 2.27 m2 Nuvia Cohen RN [facility], Inc.; [facility], Inc. 12-01-2019 15:15-0400 Body temperature 98 [degF] Nuvia Cohen RN [facility], Inc.; [facility], Inc. 12-01-2019 15:15-0400 Body weight 135.63 kg Nuvia Cohen RN [facility], Inc.; [facility], Inc. 12-01-2019 15:15-0400 Diastolic blood pressure 65 mm[Hg] Nuvia Cohen RN [facility], Inc.; [facility], Inc. 12-01-2019 15:15-0400 Heart rate 87 /min Nuvia Cohen RN [facility], Inc.; [facility], Inc. 12-01-2019 15:15-0400 Systolic blood pressure 96 mm[Hg] Nuvia Cohen RN [facility], Inc.; [facility], Inc. 11-06-2019 10:54-0400 Body height 157.48 cm Milady Rivera RN [facility], Inc.; [facility], Inc. 11-06-2019 10:54-0400 Body mass index (BMI) [Ratio] 56.33 kg/m2 Milady Rivera RN [facility], Inc.; [facility], Inc. 11-06-2019 10:54-0400 Body surface area Derived from formula 2.3 m2 Milady Rivera RN [facility], Inc.; [facility], Inc. 11-06-2019 10:54-0400 Body weight 139.71 kg Milady Rivera RN [facility], Inc.; [facility], Inc. 11-06-2019 10:54-0400 Diastolic blood pressure 77 mm[Hg] Milady Rivera RN [facility], Inc.; [facility], Inc. 11-06-2019 10:54-0400 Heart rate 84 /min Milady Rivera RN [facility], Inc.; [facility], Inc. 11-06-2019 10:54-0400 Systolic blood pressure 113 mm[Hg] Milady Rivera RN [facility], Inc.; [facility], Inc. 04-14-2019 10:28-0400 Body height 157.48 cm Nuvia Cohen RN [facility], Inc.; [facility], Inc. 04-14-2019 10:28-0400 Body mass index (BMI) [Ratio] 55.05 kg/m2 Nuvia Cohen RN [facility], Inc.; [facility], Inc. 04-14-2019 10:28-0400 Body surface area Derived from formula 2.27 m2 Nuvia Cohen RN [facility], Inc.; [facility], Inc. 04-14-2019 10:28-0400 Body temperature 97.9 [degF] Nuvia Cohen RN [facility], Inc.; [facility], Inc. 04-14-2019 10:28-0400 Body weight 136.53 kg Nuvia Cohen RN [facility], Inc.; [facility], Inc. 04-14-2019 10:28-0400 Diastolic blood pressure 83 mm[Hg] Nuvia Cohen RN [facility], Inc.; [facility], Inc. 04-14-2019 10:28-0400 Heart rate 91 /min Nuvia Cohen RN [facility], Inc.; [facility], Inc. 04-14-2019 10:28-0400 Systolic blood pressure 127 mm[Hg] Nuvia Cohen RN [facility], Inc.; [facility], Inc. 04-02-2018 10:50-0500 Body height 157.48 cm Idalmis Mccall RN [facility], Inc.; [facility], Inc. 04-02-2018 10:50-0500 Body mass index (BMI) [Ratio] 55.97 kg/m2 Idalmis Mccall RN [facility], Inc.; [facility], Inc. 04-02-2018 10:50-0500 Body surface area Derived from formula 2.29 m2 Idalmis Mccall RN [facility] [employer] [facility], Inc.; [employer] [facility], Inc. 04-02-2018 10:50-0500 Body weight 138.8 kg Idalmis Mccall RN [facility], Inc.; [employer] [facility] 04-02-2018 10:50-0500 Diastolic blood pressure 77 mm[Hg] Idalmis Mccall RN [facility], Inc.; [facility], Inc. 04-02-2018 10:50-0500 Heart rate 93 /min Idalmis Mccall RN [facility] [employer] [facility], Inc.; [facility], [employer]. 04-02-2018 10:50-0500 Systolic blood pressure 110 mm[Hg] Idalmis Mccall RN [facility], Inc.; [facility], [employer]. 03-21-2018 09:48-0500 Body height 157.48 cm Milady Rivera [facility], Inc.; [facility], Inc. 03-21-2018 09:48-0500 Body mass index (BMI) [Ratio] 54.14 kg/m2 Milady Rivera RN [facility], Inc.; [facility], Inc. 03-21-2018 09:48-0500 Body surface area Derived from formula 2.26 m2 Milady Rivera RN [facility], Inc.; [employer] [facility], Inc. 03-21-2018 09:48-0500 Body temperature 97.6 [degF] Milady Rivera RN [facility] [employer] [facility], Inc.; [facility], [employer]. 03-21-2018 09:48-0500 Body weight 134.27 kg Milady Rivera RN [facility], Inc.; [employer] [facility], [employer]. 03-21-2018 09:48-0500 Diastolic blood pressure 85 mm[Hg] Milady Rivera RN [facility] [facility], Inc.; [employer] [facility] [facility], [employer]. 03-21-2018 09:48-0500 Heart rate 83 /min Milady Rivera RN [facility] DepartmentV[facility].; [facility], Inc. 03-21-2018 09:48-0500 Systolic blood pressure 152 mm[Hg] Milady Rivera RN [facility] [email or web address], Inc[employer] 10-01-2017 11:03-0400 Body height 157.48 cm [employer] Work Phone: [facility] [email or web address], Inc[employer] 10-01-2017 11:03-0400 Body mass index (BMI) [Ratio] 52.49 kg/m2 [employer] Work Phone: [facility].; [facility] [email or web address], Inc[employer] 10-01-2017 11:03-0400 Body surface area Derived from formula 2.23 m2 [employer] Work Phone: [facility].; [facility], Inc[employer] 10-01-2017 11:03-0400 Body weight 130.18 kg JESSICA [employer] Work Phone: [facility].; [facility], Inc. 09-15-2017 11:01-0400 Body height 157.48 cm [facility] Inc.; [facility], Inc. 09-15-2017 11:01-0400 Body mass index (BMI) [Ratio] 52.49 kg/m2 [facility] Inc.; [facility], Inc[facility] 09-15-2017 11:01-0400 Body surface area Derived from formula 2.23 m2 [facility].; [facility], Inc. 09-15-2017 11:01-0400 Body weight 130.18 kg [facility] Inc.; [facility], Inc. 09-15-2017 11:01-0400 Diastolic blood pressure 79 mm[Hg] [facility], Inc.; [facility], Inc. 09-15-2017 11:01-0400 Heart rate 83 /min [facility], Inc.; [facility], Inc. 09-15-2017 11:01-0400 Systolic blood pressure 116 mm[Hg] [facility], Inc.; [facility], Inc. 09-12-2017 10:12-0400 Body height 157.48 cm Idalmis Mccall RN [facility], Inc.; [facility], Inc. 09-12-2017 10:12-0400 Body mass index (BMI) [Ratio] 52.86 kg/m2 Idalmis Mccall RN [facility], Inc.; [facility], Inc. 09-12-2017 10:12-0400 Body surface area Derived from formula 2.24 m2 Idalmis Mccall RN [facility], Inc.; [facility], Inc. 09-12-2017 10:12-0400 Body temperature 98.4 [degF] Idalmis Mccall RN [facility], Inc.; [facility], Inc. 09-12-2017 10:12-0400 Body weight 131.09 kg Idalmis Mccall RN [facility], Inc.; [facility], Inc. 09-12-2017 10:12-0400 Diastolic blood pressure 74 mm[Hg] Idalmis Mccall RN [facility], Inc.; [facility], Inc. 09-12-2017 10:12-0400 Heart rate 86 /min Idalmis Mccall RN [facility], Inc.; [facility], Inc. 09-12-2017 10:12-0400 Systolic blood pressure 103 mm[Hg] Idalmis Mccall RN [facility], [facility].; [facility] [facility] 07-17-2017 09:53-0400 Body height 155.57 cm Idalmis Mccall RN [facility] [facility], Inc.; [facility] 07-17-2017 09:53-0400 Body mass index (BMI) [Ratio] 54.72 kg/m2 Idalmis Mccall RN [facility], Inc.; [facility] Inc[facility] 07-17-2017 09:53-0400 Body surface area Derived from formula 2.23 m2 Idalmis Mccall RN [facility], [facility].; [facility], Inc. 07-17-2017 09:53-0400 Body weight 132.45 kg Idalmis Mccall RN [facility], Inc.; [facility], Inc. 07-17-2017 09:53-0400 Diastolic blood pressure 81 mm[Hg] Idalmis Mccall RN [facility], [facility].; [facility], Inc. 07-17-2017 09:53-0400 Heart rate 94 /min Idalmis Mccall RN [facility], [facility].; [facility], Inc. 07-17-2017 09:53-0400 Systolic blood pressure 122 mm[Hg] Idalmis Mccall RN [facility], [facility].; [facility], Inc. 06-25-2017 10:34-0400 Body height 155.57 cm Milady Rivera RN [facility], [facility].; [facility], Inc[facility] 06-25-2017 10:34-0400 Body mass index (BMI) [Ratio] 55.66 kg/m2 Milady Rivera RN [facility], [facility].; [facility], Inc. 06-25-2017 10:34-0400 Body surface area Derived from formula 2.24 m2 Milady [facility] RN [facility], [facility].; [facility], Inc. 06-25-2017 10:34-0400 Body weight 134.72 kg Milady Rivera RN [facility], [facility].; [facility], Inc. 06-25-2017 10:34-0400 Diastolic blood pressure 74 mm[Hg] Milady Rivera RN [facility], [facility].; [employer] [facility] [employer]. 06-25-2017 10:34-0400 Heart rate 91 /min Milady Rivera RN [employer] 06-25-2017 10:34-0400 Systolic blood pressure 105 mm[Hg] Milady Rivera RN [employer] [facility] 06-07-2017 10:28-0400 Body height 155.57 cm paymio Work Phone: [employer] [facility] Inc[facility] 06-07-2017 10:28-0400 Body mass index (BMI) [Ratio] 55.85 kg/m2 [employer] Work Phone: [place] [facility] [employer] 06-07-2017 [id number] Body surface area Derived from formula 2.24 m2 [employer] Work Phone: [employer] 06-07-2017 [id number] Body weight 135.17 kg paymio Work Phone: [employer], [employer]. 05-25-2017 18:09-0400 Body height 155.57 cm Jessica A Ring.; [employer], Inc. 05-25-2017 18:09-0400 Body mass index (BMI) [Ratio] 55.85 kg/m2 Jessica Lynn [employer].; [employer], Inc. 05-25-2017 18:09-0400 Body surface area Derived from formula 2.24 m2 Jessica A [employer], Inc. 05-25-2017 18:09-0400 Body temperature 98 [degF] Jessica A [employer], [employer]. 05-25-2017 18:09-0400 Body weight 135.17 kg Jessica Lynn Beauleiu [facility], [facility].; [employer] [facility] Inc[facility] 05-25-2017 18:09-0400 Diastolic blood pressure 78 mm[Hg] Jessica Lynn [facility], Inc.; [employer], Inc. 05-25-2017 18:09-0400 Heart rate 98 /min Jessica Beaulieu [facility], Inc.; [employer], [employer]. 05-25-2017 18:09-0400 Systolic blood pressure 117 mm[Hg] Jessica Lynn Beaulieu [facility], Inc.; [employer] [facility] Inc[facility] 05-17-2017 10:22-0400 Body height 155.57 cm Idalmis Mccall RN [facility], Inc.; [employer] [facility] Inc[facility] 05-17-2017 10:22-0400 Body mass index (BMI) [Ratio] 55.66 kg/m2 Idalmis Mccall RN [facility], Inc.; [employer] [facility], [facility] 05-17-2017 10:22-0400 Body surface area Derived from formula 2.24 m2 Idalmis Mccall RN [facility], Inc.; [employer] [facility], Inc. 05-17-2017 10:22-0400 Body temperature 98.3 [degF] Idalmis Mccall RN [facility], [facility].; [employer] [facility] Inc[facility] 05-17-2017 10:22-0400 Body weight 134.72 kg Idalmis Mccall RN [facility], Inc.; [employer] [facility] Inc[facility] 05-17-2017 10:22-0400 Diastolic blood pressure 73 mm[Hg] Idalmis Mccall RN [facility], Inc.; [employer] [facility] Inc[facility] 05-17-2017 10:22-0400 Heart rate 86 /min Idalmis Mccall RN [facility], [facility].; [employer] [facility] Inc[facility] 05-17-2017 10:22-0400 Systolic blood pressure 108 mm[Hg] Idalmis Mccall RN [employer] [facility] ICU Metrix. 04-27-2017 18:57-0400 Body height 155.57 cm Bryan ISSA MD Work Phone: [employer]; [employer]. 04-27-2017 18:57-0400 Body mass index (BMI) [Ratio] 55.1 kg/m2 Bryan ISSA MD Work Phone: [employer]; [employer]. 04-27-2017 18:57-0400 Body surface area Derived from formula 2.23 m2 Bryan ISSA MD Work Phone: [employer]; [employer]. 04-27-2017 18:57-0400 Body temperature 97.9 [degF] Bryan ISSA MD Work Phone: [employer]; [employer]. 04-27-2017 18:57-0400 Body weight 133.36 kg Bryan ISSA MD Work Phone: [employer]; [employer] [facility] ICU Metrix. 04-27-2017 18:57-0400 Diastolic blood pressure 77 mm[Hg] Bryan ISSA MD Work Phone: [employer]; [employer]. 04-27-2017 18:57-0400 Heart rate 92 /min Bryan ISSA MD Work Phone: [employer]. 04-27-2017 18:57-0400 Inhaled oxygen concentration 21 % Bryan ISSA MD Work Phone: [employer]. 04-27-2017 18:57-0400 SaO2% (BldA) [Mass fraction] 98 % Bryan ISSA MD Work Phone: [facility] Inc.; [employer], [employer]. 04-27-2017 18:57-0400 Systolic blood pressure 138 mm[Hg] Bryan ISSA MD Work Phone: [facility] Inc.; [employer], [employer]. 04-21-2017 08:52-0400 Body height 155.57 cm Jessica Lynn Beaulieu [employer] [facility], Inc.; [employer], [employer]. 04-21-2017 08:52-0400 Body mass index (BMI) [Ratio] 55.1 kg/m2 Jessica A [employer] [facility], Inc.; [employer], [employer]. 04-21-2017 08:52-0400 Body surface area Derived from formula 2.23 m2 Jessica Lynn [employer], [employer].; [employer], [employer]. 04-21-2017 08:52-0400 Body temperature 98.2 [degF] Jessica Lynn [employer], Inc.; [employer], Inc. 04-21-2017 08:52-0400 Body weight 133.36 kg Jessica Lynn [employer], [employer].; [employer], [employer]. 04-21-2017 08:52-0400 Diastolic blood pressure 74 mm[Hg] Jessica Lynn Beaulieu [facility], Inc.; [employer], [employer]. 04-21-2017 08:52-0400 Heart rate 94 /min Jessica Lynn Beaulieu [employer] [facility], Inc.; [employer], [employer]. 04-21-2017 08:52-0400 Systolic blood pressure 110 mm[Hg] Jessica A [employer], Inc.; [employer], [employer]. 03-23-2017 19:48-0500 Body height 155.57 cm JESSICA HOFFMAN Work Phone: [facility].; [employer], [employer]. 03-23-2017 19:48-0500 Body mass index (BMI) [Ratio] 54.05 kg/m2 JESSICA HubSpotIKEER DEPOT MANAGER-C Work Phone: [employer]. 03-23-2017 19:48-0500 Body surface area Derived from formula 2.21 m2 JESSICA HOFFMANTTER DEPOT MANAGER-C Work Phone: [employer]. 03-23-2017 19:48-0500 Body temperature 97.8 [degF] JESSICA HOFFMANTTER DEPOT MANAGER-C Work Phone: [employer] [facility] ICU [facility]rix. 03-23-2017 19:48-0500 Body weight 130.82 kg JESSICA HOFFMANTTER DEPOT MANAGER-C Work Phone: [employer]. 03-23-2017 19:48-0500 Diastolic blood pressure 74 mm[Hg] JESSICA HOFFMANTTER DEPOT MANAGER-C Work Phone: [employer]. 03-23-2017 19:48-0500 Heart rate 84 /min JESSICA HOFFMANTTER DEPOT MANAGER-C Work Phone: [employer] [facility] ICU [facility]. 03-23-2017 19:48-0500 Systolic blood pressure 108 mm[Hg] JESSICA HOFFMANTTER DEPOT MANAGER-C Work Phone: [employer]. 02-09-2017 17:57-0500 Body height 155.57 cm JESSICA SARABIAER DEPOT MANAGER-C Work Phone: [employer]. 02-09-2017 17:57-0500 Body mass index (BMI) [Ratio] 52.66 kg/m2 JESSICA HubSpotMONICATTER DEPOT MANAGER-C Work Phone: [employer] 02-09-2017 17:57-0500 Body surface area Derived from formula 2.19 m2 JESSICA KRUGER DEPOT MANAGER-C Work Phone: [employer] 02-09-2017 17:57-0500 Body weight 127.46 kg JESSICA KRUGER DEPOT MANAGER-C Work Phone: [facility] ICU [facility].; [employer] 02-09-2017 17:57-0500 Diastolic blood pressure 81 mm[Hg] JESSICA KRUGER DEPOT MANAGER-C Work Phone: [facility] ICU [facility].; [employer] 02-09-2017 17:57-0500 Heart rate 102 /min JESSICA KRUGER DEPOT MANAGER-C Work Phone: [facility] ICU [facility].; [employer] 02-09-2017 17:57-0500 Systolic blood pressure 126 mm[Hg] JESSICA KRUGER DEPOT MANAGER-C Work Phone: [employer], [employer] 01-04-2017 11:02-0500 Body height 155.57 cm Milady Rivera RN [employer]. 01-04-2017 11:02-0500 Body mass index (BMI) [Ratio] 52.66 kg/m2 Milady Rivera RN [employer] 01-04-2017 11:02-0500 Body surface area Derived from formula 2.19 m2 Milady Rivera RN [employer] 01-04-2017 11:02-0500 Body weight 127.46 kg Milady Rivera RN [employer] [facility] 01-04-2017 11:02-0500 Diastolic blood pressure 81 mm[Hg] Milady Rivera RN [facility], Inc.; [facility], Inc. 01-04-2017 11:02-0500 Heart rate 90 /min Milady Rivera RN [facility], [facility].; [facility], Inc. 01-04-2017 11:02-0500 Systolic blood pressure 114 mm[Hg] Milady Rivera RN [facility], [facility].; [facility], Inc. 12-27-2016 16:15-0500 Body height 155.57 cm Idalmis Mccall RN [facility], [employer] [facility], Inc. 12-27-2016 16:15-0500 Body mass index (BMI) [Ratio] 52.47 kg/m2 Idalmis Mccall RN [facility], Inc.; [facility], [employer]. 12-27-2016 16:15-0500 Body surface area Derived from formula 2.19 m2 Idalmis Mccall RN [facility], [facility].; [facility], Inc. 12-27-2016 16:15-0500 Body temperature 97.5 [degF] Idalmis Mccall RN [facility], [facility].; [facility], Inc. 12-27-2016 16:15-0500 Body weight 127.01 kg Idalmis Mccall RN [facility], [facility].; [facility], Inc. 12-27-2016 16:15-0500 Diastolic blood pressure 81 mm[Hg] Idalmis Mccall RN [facility], Inc.; [facility], Inc. 12-27-2016 16:15-0500 Heart rate 98 /min Idalmis Mccall RN [facility], [facility].; [facility], Inc. 12-27-2016 16:15-0500 Inhaled oxygen concentration 21 % Idalmis Mccall RN [facility], [facility].; [facility], Inc. 12-27-2016 16:15-0500 SaO2% (BldA) [Mass fraction] 97 % Idalmis Mccall RN [facility], Inc.; [facility], Inc. 12-27-2016 16:15-0500 Systolic blood pressure 127 mm[Hg] Idalmis Mccall RN [facility], Inc.; [facility] [facility], Inc. 12-01-2016 10:52-0400 Body height 155.57 cm Jessica Lynn [facility], Inc.; [facility], Inc[facility] 12-01-2016 10:52-0400 Body mass index (BMI) [Ratio] 51.54 kg/m2 Jessica Lynn [facility], Inc.; [facility], Inc[facility] 12-01-2016 10:52-0400 Body surface area Derived from formula 2.17 m2 Jessica Lynn [facility], Inc.; [facility], Inc. 12-01-2016 10:52-0400 Body weight 124.74 kg Jessica Lynn [facility], Inc.; [facility], Inc. 12-01-2016 10:52-0400 Diastolic blood pressure 78 mm[Hg] Jessica Lynn Beaulieu [facility], Inc.; [facility], Inc[facility] 12-01-2016 10:52-0400 Heart rate 87 /min Jessica Lynn [facility], Inc.; [facility], Inc[facility] 12-01-2016 10:52-0400 Systolic blood pressure 118 mm[Hg] Jessica Lynn [facility], Inc.; [facility], Inc[facility] 10-19-2016 11:20-0400 Body height 155.57 cm Milady Rivera RN [facility] 10-19-2016 11:20-0400 Body mass index (BMI) [Ratio] 50.6 kg/m2 Milady Rivera RN [facility], Inc.; [facility], Inc[facility] 10-19-2016 11:20-0400 Body surface area Derived from formula 2.15 m2 Milady Rivera RN [place] [facility], Inc.; [employer] [facility], Inc[facility] 10-19-2016 11:20-0400 Body weight 122.47 kg Milady Rivera RN [facility], Inc.; [employer] [facility] [employer] [facility], Inc[facility] 10-19-2016 11:20-0400 Diastolic blood pressure 81 mm[Hg] Milady Rivera RN [facility], Inc.; [employer] [facility] [employer] [facility], Inc[facility] 10-19-2016 11:20-0400 Heart rate 87 /min Milady Rivera RN [facility], Inc.; [employer] [facility] [employer] [facility], Inc[facility] 10-19-2016 11:20-0400 Systolic blood pressure 134 mm[Hg] Milady Rivera RN [facility], Inc.; [employer] [facility], Inc. 09-12-2016 10:46-0400 Body height 155.57 cm Idalmis Mccall RN [facility], Inc.; [facility], Inc[facility] 09-12-2016 10:46-0400 Body mass index (BMI) [Ratio] 50.23 kg/m2 Idalmis Mccall RN [facility], Inc.; [facility], Inc[facility] 09-12-2016 10:46-0400 Body surface area Derived from formula 2.15 m2 Idalmis Mccall RN [facility], Inc.; [employer] [facility] [employer] [facility], Inc[facility] 09-12-2016 10:46-0400 Body weight 121.56 kg Idalmis Mccall RN [facility].; [employer] [facility], Inc[facility] 09-12-2016 10:46-0400 Diastolic blood pressure 65 mm[Hg] Idalmis Mccall RN [facility], Inc.; [employer] [facility], Inc[facility] 09-12-2016 10:46-0400 Heart rate 85 /min Idalmis Mccall RN [facility] [facility], Inc.; [employer] [facility], Inc[facility] 09-12-2016 10:46-0400 Systolic blood pressure 111 mm[Hg] Idalmis Mccall RN [facility], Inc.; [employer] [facility], [employer]. 09-06-2016 10:01-0400 Body height 155.57 cm JESSICA FunGoPlayARJUNCare2ManageER DEPOT MANAGER-C Work Phone: [employer] [facility]. 09-06-2016 10:01-0400 Body mass index (BMI) [Ratio] 50.23 kg/m2 JESSICA FunGoPlayLACHOCoinkiteER DEPOT MANAGER-C Work Phone: [employer] [facility]. 09-06-2016 10:01-0400 Body surface area Derived from formula 2.15 m2 JESSICA EnlightedP-C Work Phone: [employer] [facility]. 09-06-2016 10:01-0400 Body temperature 98 [degF] JESSICA leaselockER DEPOT MANAGER-C Work Phone: [employer] [facility]. 09-06-2016 10:01-0400 Body weight 121.56 kg JESSICA leaselockER DEPOT MANAGER-C Work Phone: [employer] [facility]. 09-06-2016 10:01-0400 Diastolic blood pressure 70 mm[Hg] JESSICA leaselockER DEPOT MANAGER-C Work Phone: [employer] [place] [employer] [facility]rix. 09-06-2016 10:01-0400 Heart rate 78 /min JESSICA leaselockER DEPOT MANAGER-C Work Phone: [employer] [facility]. 09-06-2016 10:01-0400 Systolic blood pressure 102 mm[Hg] JESSICA HubSpotTETTER DEPOT MANAGER-C Work Phone: [employer] [facility]. 08-14-2016 11:22-0400 Body height 155.57 cm Milady Rivera RN [facility], Inc.; [facility], Inc[facility] 08-14-2016 11:22-0400 Body mass index (BMI) [Ratio] 50.41 kg/m2 Milady Rivera RN [facility], Inc.; [facility], Inc. 08-14-2016 11:22-0400 Body surface area Derived from formula 2.15 m2 Milady Rivera RN [facility], Inc.; [facility], Inc. 08-14-2016 11:22-0400 Body weight 122.02 kg Milady Rivera [facility], Inc.; [facility], Inc. 08-14-2016 11:22-0400 Diastolic blood pressure 74 mm[Hg] Milady Rivera [facility], [facility].; [facility], Inc[facility] 08-14-2016 11:22-0400 Heart rate 82 /min Milady Rivera RN [facility], Inc.; [facility], Inc. 08-14-2016 11:22-0400 Systolic blood pressure 111 mm[Hg] Milady Rivera RN [facility], Inc.; [facility], Inc. 06-19-2016 09:0400 Body height 155.57 cm Milady Rivera [facility], Inc.; [facility], Inc. 06-19-2016 09:-0400 Body mass index (BMI) [Ratio] 48.91 kg/m2 Milady Rivera RN [facility], Inc.; [facility], Inc. 06-19-2016 09:-0400 Body surface area Derived from formula 2.12 m2 Milady Rivera RN [facility], Inc.; [facility], Inc. 06-19-2016 09:26-0400 Body temperature 98 [degF] Milady Rivera RN [facility], Inc.; [facility], Inc. 06-19-2016 09:26-0400 Body weight 118.39 kg Milady Rivera RN [facility], Inc.; [facility], Inc. 06-19-2016 09:26-0400 Diastolic blood pressure 79 mm[Hg] Milady Rivera RN [facility], Inc.; [facility], Inc. 06-19-2016 09:26-0400 Heart rate 83 /min Milady Rivera RN [facility], Inc.; [facility], Inc. 06-19-2016 09:26-0400 Systolic blood pressure 118 mm[Hg] Milady Rivera RN [facility], Inc.; [facility] 04-17-2016 09:57-0400 Body height 155.57 cm Nuvia Cohen RN [facility], [facility].; [facility] 04-17-2016 09:57-0400 Body mass index (BMI) [Ratio] 48.16 kg/m2 Nuvia Cohen RN [facility] 04-17-2016 09:57-0400 Body surface area Derived from formula 2.11 m2 Nuvia Cohen RN [facility].; [facility] 04-17-2016 09:57-0400 Body temperature 98.2 [degF] Nuvia Cohen RN [facility] 04-17-2016 09:57-0400 Body weight 116.58 kg Nuvia Cohen RN [facility].; [facility] 04-17-2016 09:57-0400 Diastolic blood pressure 75 mm[Hg] Nuvia Cohen RN [facility].; [facility] 04-17-2016 09:57-0400 Heart rate 85 /min Nuvia Cohen RN [facility], [facility].; [facility] 04-17-2016 09:57-0400 Inhaled oxygen concentration 21 % Nuvia Cohen RN [facility].; [facility], [facility] 04-17-2016 09:57-0400 SaO2% (BldA) [Mass fraction] 95 % Nuvia Cohen RN [facility], [facility].; [facility] 04-17-2016 09:57-0400 Systolic blood pressure 110 mm[Hg] Nuvia Cohen RN [facility], [facility].; [facility] 03-21-2016 10:27-0500 Body height 156.84 cm Idalmis Mccall RN [facility], [facility].; [employer] [facility], [facility] 03-21-2016 10:27-0500 Body mass index (BMI) [Ratio] 47.39 kg/m2 Idalmis Mccall RN [facility], [employer] [facility]. 03-21-2016 10:27-0500 Body surface area Derived from formula 2.12 m2 Idalmis Mccall RN [facility], [employer].; [employer] [facility]. 03-21-2016 10:27-0500 Body weight 116.58 kg Idalmis Mccall RN [facility], [facility].; [employer] 03-21-2016 10:27-0500 Diastolic blood pressure 75 mm[Hg] Idalmis Mccall RN [facility], [facility].; [employer] [facility], Inc[facility] 03-21-2016 10:27-0500 Heart rate 92 /min Idalmis Mccall RN [facility], [employer].; [employer] [facility] ICU Metrix. 03-21-2016 10:27-0500 Systolic blood pressure 113 mm[Hg] Idalmis Mccall RN [facility], [facility].; [employer] 01-04-2016 09:29-0500 Body height 155.57 cm Milady Rivera RN [facility], [employer] [facility] 01-04-2016 09:29-0500 Body mass index (BMI) [Ratio] 47.98 kg/m2 Milady Rivera RN [facility], [employer].; [employer] [facility], [employer]. 01-04-2016 09:29-0500 Body surface area Derived from formula 2.1 m2 Milady Rivera RN [facility], [facility].; [facility], Inc[facility] 01-04-2016 09:29-0500 Body weight 116.12 kg Milady Rivera RN [facility], [facility].; [facility], Inc[facility] 01-04-2016 09:29-0500 Diastolic blood pressure 77 mm[Hg] Milady Rivera RN [facility], [facility].; [facility], Inc[facility] 01-04-2016 09:29-0500 Heart rate 87 /min Milady Rivera RN [facility], [facility].; [facility], Inc[facility] 01-04-2016 09:29-0500 Systolic blood pressure 114 mm[Hg] Milady Rivera RN [facility], [facility].; [facility], Inc[facility] 11-30-2015 10:24-0400 Body height 157.48 cm Milady Rivera RN [facility], [facility].; [facility], Inc[facility] 11-30-2015 10:24-0400 Body mass index (BMI) [Ratio] 47.01 kg/m2 Milady Rivera RN [facility], [facility].; [facility], Inc[facility] 11-30-2015 10:24-0400 Body surface area Derived from formula 2.13 m2 Milady Rivera RN [facility], [facility].; [facility], Inc[facility] 11-30-2015 10:24-0400 Body temperature 98.2 [degF] Milady Rivera RN [facility], [facility].; [facility], [employer]. 11-30-2015 10:24-0400 Body weight 116.58 kg Milady Rivera RN [facility], [facility].; [facility], [employer]. 11-30-2015 10:24-0400 Diastolic blood pressure 75 mm[Hg] Milady Rivera RN [facility], [facility].; [facility], [employer]. 11-30-2015 10:24-0400 Heart rate 80 /min Milady Rivera RN [facility] ICU [employer].; [employer] [facility] 11-30-2015 10:24-0400 Systolic blood pressure 109 mm[Hg] Milady Rivera RN [facility] ICU [employer].; [employer] [facility] 11-19-2015 18:03-0400 Body height 157.48 cm LANDY Moscoso BEAULIEU [employer] [facility].; [employer] [facility], Inc[facility] 11-19-2015 18:03-0400 Body mass index (BMI) [Ratio] 46.82 kg/m2 [facility] Richard Pauer - 3P.; [facility], Inc[facility] 11-19-2015 18:03-0400 Body surface area Derived from formula 2.12 m2 LANDY Moscoso BEAULIEU [employer], Inc[employer] 11-19-2015 18:03-0400 Body temperature 99 [degF] LANDY Moscoso BEAULIEU [employer].; [employer], Inc[employer] 11-19-2015 18:03-0400 Body weight 116.12 kg LANDY Moscoso Richard Pauer - 3P.; [employer], Inc[employer] 11-19-2015 18:03-0400 Diastolic blood pressure 78 mm[Hg] LANDY Moscoso [employer], Inc[employer] 11-19-2015 18:03-0400 Heart rate 113 /min LANDY Moscoso BEAULIEU [employer].; [employer], Inc. 11-19-2015 18:03-0400 Inhaled oxygen concentration 21 % [facility]UCK[facility] [employer].; [employer], Inc[employer] 11-19-2015 18:03-0400 SaO2% (BldA) [Mass fraction] 96 % [facility]UCK[facility]i [facility] BEAULIEU [employer], Inc[employer] 11-19-2015 18:03-0400 Systolic blood pressure 118 mm[Hg] [facility]UCK[facility] Richard Pauer - 3P.; [employer], [employer]. 11-16-2015 10:46-0400 Body height 158.12 cm Milady Rivera RN [facility], [facility].; [facility], [employer]. 11-16-2015 10:46-0400 Body mass index (BMI) [Ratio] 46.45 kg/m2 Milady Rivera RN [facility], [facility].; [facility], Inc[facility] 11-16-2015 10:46-0400 Body surface area Derived from formula 2.13 m2 Milady Rivera RN [facility], [facility].; [facility], [employer]. 11-16-2015 10:46-0400 Body temperature 97.5 [degF] Milady Rivera RN [facility], [employer].; [facility], [employer]. 11-16-2015 10:46-0400 Body weight 116.12 kg Milady Rivera RN [facility], [facility].; [facility], [employer]. 11-16-2015 10:46-0400 Diastolic blood pressure 82 mm[Hg] Milady Rivera RN [facility], [facility].; [facility], [employer]. 11-16-2015 10:46-0400 Heart rate 103 /min Milady Rivera RN [facility], [employer].; [facility], [employer]. 11-16-2015 10:46-0400 Inhaled oxygen concentration 21 % Milady Rivera RN [facility], [facility].; [facility], [employer]. 11-16-2015 10:46-0400 SaO2% (BldA) [Mass fraction] 96 % Milady Rivera RN [facility].; [facility], [employer]. 11-16-2015 10:46-0400 Systolic blood pressure 130 mm[Hg] iMlady Rivera RN [facility], [facility].; [facility], [employer]. 11-04-2015 11:20-0400 Body height 157.48 cm JESSICA HOFFMAN Work Phone: [place] DepartmentV[facility].; [facility]ITALFoodBuzzAt[facility] [place] DepartmentV[facility]. 11-04-2015 11:20-0400 Body mass index (BMI) [Ratio] 48.4 kg/m2 JESSICA KRUGER DEPOT MANAGER-C Work Phone: [facility] DepartmentV[facility].; [facility] HOSPITALFoodBuzzAt[facility] [place] [facility] DepartmentV[facility]ooVox. 11-04-2015 11:20-0400 Body surface area Derived from formula 2.15 m2 JESSICA DERASP-C Work Phone: [facility] DepartmentV[facility]Vox.; [facility] ICU Metrix. 11-04-2015 11:20-0400 Body weight 120.02 kg JESSICA KRUGER DEPOT MANAGER-C Work Phone: [facility] DepartmentV[facility].; [facility] CIRCLEAt[facility] Health [facility] DepartmentV[facility]. 11-04-2015 11:20-0400 Diastolic blood pressure 76 mm[Hg] JESSICA KRUGER DEPOT MANAGER-C Work Phone: [facility] DepartmentV[facility]oo[facility].; [facility] DepartmentV[facility]ooVox. 11-04-2015 11:20-0400 Heart rate 105 /min JESSICA KRUGER DEPOT MANAGER-C Work Phone: [facility] DepartmentV[facility]Vox.; [facility] CIRCLEAt[facility] Health [facility] DepartmentV[facility]ooVox. 11-04-2015 11:20-0400 Systolic blood pressure 109 mm[Hg] JESSICA KRUGER DEPOT MANAGER-C Work Phone: [facility] DepartmentV[facility]ooVox.; [facility] HOSPITALFoodBuzzAt[facility] ICU Metrix. 10-21-2015 08:55-0400 Body height 157.48 cm JESSICA KRUGER DEPOT MANAGER-C Work Phone: [facility] ICU [employer].; [facility] ICU Metrix. 10-21-2015 08:55-0400 Body mass index (BMI) [Ratio] 47.19 kg/m2 JESSICA KRUGER DEPOT MANAGER-C Work Phone: [facility] ICU [facility].; [employer] [facility] ICU Metrix. 10-21-2015 08:55-0400 Body surface area Derived from formula 2.13 m2 JESSICA HERNANDEZQuadia Online VideoMONICADEL [facility] DEPOT MANAGER-C Work Phone: [facility] ICU [employer].; [employer] [facility], [employer]. 10-21-2015 08:55-0400 Body weight 117.03 kg JESSICA Zoomin.comDEL [facility] MEDICAL [facility]ENTER DEPOT MANAGER-C Work Phone: [facility] ICU [employer].; [employer] [facility], Inc[facility] 10-05-2015 13:41-0400 Body height 157.48 cm Idalmis Mccall RN [facility] ICU [facility].; [employer] [facility], Inc[facility] 10-05-2015 13:41-0400 Body mass index (BMI) [Ratio] 47.55 kg/m2 Idalmis Mccall RN [facility] DepartmentV[facility].; [employer] [facility], [employer]. 10-05-2015 13:41-0400 Body surface area Derived from formula 2.14 m2 Idalmis Mccall RN [facility] ICU [facility].; [employer] [facility], [employer]. 10-05-2015 13:41-0400 Body weight 117.94 kg Idalmis Mccall RN [facility] ICU [facility].; [employer] [facility], Inc[facility] 10-05-2015 13:41-0400 Diastolic blood pressure 80 mm[Hg] Idalmis Mccall RN [facility] ICU [facility].; [employer] [facility], Inc[facility] 10-05-2015 13:41-0400 Heart rate 94 /min Idalmis Mccall RN [facility] ICU [facility].; [employer] [facility], [employer]. 10-05-2015 13:41-0400 Systolic blood pressure 123 mm[Hg] Idalmis Mccall RN [facility] ICU [facility]rix.; [employer], Inc[employer] 06-04-2015 11:22-0400 Body height 157.48 cm Milady Rivera RN [facility] ICU [facility].; [employer] [facility], [employer]. 06-04-2015 11:22-0400 Body mass index (BMI) [Ratio] 47.74 kg/m2 Milady Rivera RN [facility], [facility].; [facility], Inc[facility] 06-04-2015 11:22-0400 Body surface area Derived from formula 2.14 m2 Milady Rivera RN [facility], [facility].; [facility], Inc[facility] 06-04-2015 11:22-0400 Body temperature 97.7 [degF] Milady Rivera RN [facility].; [facility] 06-04-2015 11:22-0400 Body weight 118.39 kg Milady Rivera RN [facility], [facility].; [facility], Inc[facility] 06-04-2015 11:22-0400 Diastolic blood pressure 79 mm[Hg] Milady Rivera RN [facility].; [facility], Inc[facility] 06-04-2015 11:22-0400 Heart rate 84 /min Milady Rivera RN [facility], [facility].; [facility], Inc[facility] 06-04-2015 11:22-0400 Systolic blood pressure 130 mm[Hg] Milady Rivera RN [facility], [facility].; [facility], Inc[facility] 03-01-2015 15:31-0500 Body height 156.84 cm Milady Rivera RN [facility].; [facility], Inc[facility] 03-01-2015 15:31-0500 Body mass index (BMI) [Ratio] 45.36 kg/m2 Milady Rivera RN [facility].; [facility] 03-01-2015 15:31-0500 Body surface area Derived from formula 2.08 m2 Milady Rivera RN [facility].; [facility] 03-01-2015 15:31-0500 Body temperature 97.6 [degF] Milady Rivera RN [facility].; [facility] Inc[facility] 03-01-2015 15:31-0500 Body weight 111.59 kg Milady Rivera RN [facility], [facility].; [facility] CenterSens[facility] Inc. 03-01-2015 15:31-0500 Diastolic blood pressure 88 mm[Hg] Milady Rivera RN [facility], [facility].; [facility] 03-01-2015 15:31-0500 Heart rate 84 /min Milady Rivera RN [facility].; [facility] 03-01-2015 15:31-0500 Systolic blood pressure 125 mm[Hg] Milady Rivera RN [facility].; [facility] 10-06-2014 16:18-0400 Body height 157.48 cm Idalmis Mccall RN [facility], [employer].; [facility] [facility] DepartmentVoodooVox. 10-06-2014 16:18-0400 Body mass index (BMI) [Ratio] 45.36 kg/m2 Idalmis Mccall RN [facility], [employer].; [facility], [employer]. 10-06-2014 16:18-0400 Body surface area Derived from formula 2.09 m2 Idalmis Mccall RN [facility] DepartmentV[facility].; [facility], [employer]. 10-06-2014 16:18-0400 Body weight 112.49 kg Idalmis Mccall RN [facility].; [facility] DepartmentV[facility]. 10-06-2014 16:18-0400 Diastolic blood pressure 76 mm[Hg] Idalmis Mccall RN [facility].; [facility], [employer]. 10-06-2014 16:18-0400 Heart rate 81 /min Idalmis Mccall RN [facility], [employer] [facility], [employer]. 10-06-2014 16:18-0400 Systolic blood pressure 112 mm[Hg] Idalmis Mccall RN [facility].; [facility] DepartmentV[facility]ooVox. 09-29-2014 15:43-0400 Body height 157.48 cm Idalmis Mccall RN [facility], [facility].; [facility], Inc[facility] 09-29-2014 15:43-0400 Body mass index (BMI) [Ratio] 45.54 kg/m2 Idalmis Mccall RN [facility], [facility].; [facility], Inc[facility] 09-29-2014 15:43-0400 Body surface area Derived from formula 2.1 m2 Idalmis Mccall RN [facility], [facility].; [facility], Inc[facility] 09-29-2014 15:43-0400 Body weight 112.95 kg Idalmis Mccall RN [facility], [facility].; [facility], Inc[facility] 09-29-2014 15:43-0400 Diastolic blood pressure 73 mm[Hg] Idalmis Mccall RN [facility], [facility].; [facility], Inc[facility] 09-29-2014 15:43-0400 Heart rate 81 /min Idalmis Mccall RN [facility], [facility].; [facility], Inc[facility] 09-29-2014 15:43-0400 Systolic blood pressure 112 mm[Hg] Idalmis Mccall RN [facility], [facility].; [facility], Inc[facility] 04-14-2014 15:07-0400 Body height 158.75 cm Milady Rivera RN [facility], [facility].; [facility], Inc[facility] 04-14-2014 15:07-0400 Body mass index (BMI) [Ratio] 43.2 kg/m2 Milady Rivera RN [facility], [facility].; [facility] 04-14-2014 15:07-0400 Body surface area Derived from formula 2.08 m2 Milady Rivera RN [facility] 04-14-2014 15:07-0400 Body temperature 97.5 [degF] Milady Rivera RN [facility] 04-14-2014 15:07-0400 Body weight 108.86 kg Milady Rivera RN [facility], [employer] [facility], Inc[facility] 04-14-2014 15:07-0400 Diastolic blood pressure 77 mm[Hg] Milady Rivera RN [facility].; [facility], Inc[facility] 04-14-2014 15:07-0400 Heart rate 92 /min Milady Rivera RN [facility].; [facility], Inc[facility] 04-14-2014 15:07-0400 Systolic blood pressure 117 mm[Hg] Milady Rivera RN [facility], [facility].; [facility], Inc[facility] 05-06-2013 09:30-0400 Body height 158.75 cm Milady Rivera RN [facility].; [facility], Inc[facility] 05-06-2013 09:30-0400 Body mass index (BMI) [Ratio] 40.86 kg/m2 Milady Rivera RN [facility].; [facility], [facility]. 05-06-2013 09:30-0400 Body surface area Derived from formula 2.03 m2 Milady Rivera RN [facility], [facility].; [facility], [facility]. 05-06-2013 09:30-0400 Body temperature 97.9 [degF] Milady Rivera RN [facility], [facility].; [facility], [facility]. 05-06-2013 09:30-0400 Body weight 102.97 kg Milady Rivera RN [facility], Inc[facility] 05-06-2013 09:30-0400 Diastolic blood pressure 79 mm[Hg] Milady Rivera RN [facility].; [facility] 05-06-2013 09:30-0400 Heart rate 85 /min Milady Rivera RN [facility], [facility].; [facility], [facility] 05-06-2013 09:30-0400 Systolic blood pressure 116 mm[Hg] Milady Rivera RN [facility] DepartmentV[facility]ooVox. 02-27-2011 11:16-0500 Body height 158.75 cm Nuvia Cohen RN [facility], [facility].; [employer] [facility], [facility] 02-27-2011 11:16-0500 Body mass index (BMI) [Ratio] 41.76 kg/m2 Nuvia Cohen RN [facility], [facility].; [employer] [facility] Department[facility] Inc[facility] 02-27-2011 11:16-0500 Body surface area Derived from formula 2.05 m2 Nuvia Cohen RN [facility], [facility].; [employer] [facility] [employer] [facility] 02-27-2011 11:16-0500 Body temperature 98.1 [degF] Nuvia Cohen RN [facility] Department[facility].; [facility], [employer] 02-27-2011 11:16-0500 Body weight 105.24 kg Nuvia Cohen RN [facility] Department[facility]. 02-27-2011 11:16-0500 Diastolic blood pressure 75 mm[Hg] Nuvia Cohen RN [facility] Inc.; [employer] [facility] [email or web address], [employer] 02-27-2011 11:16-0500 Heart rate 77 /min Nuvia Cohen RN [facility], [employer] [facility] Department[facility]ox. 02-27-2011 11:16-0500 Systolic blood pressure 110 mm[Hg] Nuvia Cohen RN [facility].; [employer] [facility] Encounters Encounter Date Encounter Type Care Provider Facility Start: 06-27-2024 End: 06-27-2024 Office outpatient visit 25 minutes Lorraine Guerrier PA-C Work Phone: [employer]. Start: 06-03-2024 End: 06-03-2024 Medication Lorraine Guerrier PA-C Work Phone: [employer]. Start: 05-13-2024 End: 05-13-2024 Historical Summary Lorraine Guerrier PA-C Work Phone: [employer]. Start: 04-23-2024 End: 04-23-2024 Medication Lorraine Guerrier PA-C Work Phone: [facility]. Start: 04-23-2024 Review Lorraine Guerrier P A-C Work Phone: [facility] Start: 04-01-2024 End: 04-01-2024 Medication Lorraine Guerrier PA-C Work Phone: [facility]. Start: 02-28-2024 End: 02-28-2024 Historical Summary Lroraine Guerrier PA-C Work Phone: [facility] Start: 02-28-2024 ambulatory [facility] Start: 02-28-2024 End: 02-28-2024 Office outpatient new 45 minutes Lorraine Guerrier PA-C Work Phone: [facility] Start: 02-28-2024 Review Lorraine Guerrier P A-C Work Phone: [facility] Start: 09-24-2023 End: 09-24-2023 JESSICA SARABIAER DEPOT MANAGER-C [facility] Start: 09-21-2023 End: 09-21-2023 ambulatory [facility] Start: 09-21-2023 End: 09-21-2023 JESSICA KRUGER DEPOT MANAGER-C [facility] Start: 09-21-2023 End: 09-21-2023 Office outpatient visit 15 minutes JESSICA KRUGER DEPOT MANAGER-C [facility] Start: 05-07-2023 End: 05-07-2023 JESSICA CAINTETTER DEPOT MANAGER-C [facility] Phone: [facility] Start: 05-03-2023 End: 05-03-2023 ambulatory JESSICA CAINMONICAFABIANO [facility] Start: 05-03-2023 End: 05-03-2023 Office outpatient visit 15 minutes JESSICA KRUGER DEPOT MANAGER-C Work Phone: [facility] Start: 05-03-2023 End: 05-03-2023 JESSICA KRUGER DEPOT MANAGER-C Work Phone: [facility] Start: 02-14-2023 End: 02-14-2023 Subsequent hospital visit by physician Rosana Travis TELESALES SPECIALIST - PRODUCT OPERATIONS ASSOCIATE Work Phone: [facility] Comment on above: Canceled (Patient: Inderjit anceled via MyChart) Start: 02-14-2023 End: 02-15-2023 ambulatory [address]ANA Aaron [facility] Start: 01-05-2023 End: 01-05-2023 Office outpatient visit 15 minutes Eliane Han MD Work Phone: [facility] [place] Comment on above: Type 2 diabetes jyothi itus without complication, without long- term current use of insulin ([facility]/HCC) ([facility]) (Primary Dx); BMI 50.0-59.9, adult ([facility]); Class 3 severe obesity with serious comorbidity and body mass index (BMI) of 50.0 to 59.9 in adult, unspecified obesity type ([facility]) Start: 01-05-2023 End: 01-05-[address] [facility] Start: 01-03-2023 End: 01-03-2023 Subsequent hospital visit by physician [facility] Room 1 [facility] Comment on above: Canceled (Patient: S chedule Conflict) Start: 01-03-2023 End: 01-04-2023 [address] [facility] Start: 12-22-2022 End: 12-22-[address] [facility] Start: 12-22-2022 End: 12-22-2022 Office outpatient visit 15 minutes Eliane Han MD Work Phone: [facility] [place] Comment on above: Type 2 diabetes jyothi itus without complication, without long- term current use of insulin (CMS/HCC) (HCC) (Primary Dx); BMI 50.0-59.9, adult ([facility]); Class 3 severe obesity with serious comorbidity and body mass index (BMI) of 50.0 to 59.9 in adult, unspecified obesity type ([facility]) Start: 12-18-2022 End: 12-18-2022 JESSICA KRUGER DEPOT MANAGER-C Work Phone: [facility] Start: 12-18-2022 End: 12-18-2022 ambulatory JEAN PAUL LYNN [facility] Start: 12-18-2022 End: 12-18-2022 Subsequent hospital visit by physician Jean Paul Bailey MD Work Phone: [facility] Comment on above: Gastro-esophageal re flux disease without esophagitis Start: 12-15-2022 End: 12-15-2022 ambulatory Cherrie Deleon TELESALES SPECIALIST - PRODUCT OPERATIONS ASSOCIATE Work Phone: [facility] Start: 12-15-2022 End: 12-15-2022 Office outpatient visit 15 minutes JESSICA KRUGER DEPOT MANAGER-C [facility] Start: 12-09-2022 End: 12-09-2022 ambulatory UROLOGY PHYSICIAN-C Jessica Kruger UROLOGY PHYSICIAN Work Phone: [facility] Work Phone: Start: 12-09-2022 End: 12-09-2022 Patient encounter procedure UROLOGY PHYSICIAN-C Jessica Kruger UROLOGY PHYSICIAN Work Phone: [facility]-Radiology, [facility] Work Phone: Start: 11-23-2022 End: 11-23-[address] [facility] Start: 11-23-2022 End: 11-23-2022 Office outpatient new 45 minutes Jean Paul Bailey MD Work Phone: [facility] Comment on above: Type 2 diabetes jyothi itus without complication, without long- term current use of insulin ([facility]) ([facility]) (Primary Dx); BMI 50.0-59.9, adult ([facility]); Class 3 severe obesity with serious comorbidity and body mass index (BMI) of 50.0 to 59.9 in adult, unspecified obesity type ([facility]) Start: 11-15-2022 End: 11-15-2022 ambulatory ROSANA TRAVIS [facility] Start: 11-15-2022 End: 11-15-2022 Office outpatient new 45 minutes Rosana Travis TELESALES SPECIALIST - PRODUCT OPERATIONS ASSOCIATE Work Phone: [facility] Comment on above: Asthma, unspecified asthma severity, unspecified whether complicated, unspecified whether persistent (Primary Dx); Morbid obesity with BMI of 50.0-59.9, adult ([facility]) Start: 11-09-2022 ambulatory Jessica Kruger Faci lity:[facility] Start: 11-09-2022 End: 11-09-2022 Patient encounter procedure UROLOGY PHYSICIAN-C Jessica Kruger UROLOGY PHYSICIAN Work Phone: [facility]-Sleep Lab Work Phone: Start: 11-02-2022 End: 11-02-2022 ambulatory UROLOGY PHYSICIAN-C Jessica Kruger UROLOGY PHYSICIAN Work Phone: [facility] Work Phone: Start: 11-02-2022 End: 11-02-2022 Patient encounter procedure UROLOGY PHYSICIAN-C Jessica Kruger UROLOGY PHYSICIAN Work Phone: [facility] Work Phone: Start: 10-30-2022 End: 10-30-2022 ambulatory Jessica Kruger Facility:[facility] Start: 10-30-2022 End: 10-30-2022 Patient encounter procedure UROLOGY PHYSICIAN-C Jessica Kruger UROLOGY PHYSICIAN Work Phone: [facility] [place] Work Phone: Start: 10-20-2022 End: 10-20-2022 Clinical Support Jean Paul Bailey MD Work Phone: [facility] [place] Comment on above: Gastroesophageal ref lux disease, unspecified whether esophagitis present (Primary Dx) Start: 10-05-2022 End: 10-05-2022 Patient encounter procedure UROLOGY PHYSICIAN-Inderjit Kruger UROLOGY PHYSICIAN Work Phone: [facility] Work Phone: Start: 10-05-2022 End: 10-05-2022 ambulatory Jessica Kruger Facility:[facility] Start: 09-30-2022 End: 09-30-2022 Emergency department patient visit [facility] Facility:[facility] Start: 09-30-2022 End: 09-30-2022 Emergency department patient visit UROLOGY PHYSICIAN-Inderjit Kruger UROLOGY PHYSICIAN Work Phone: [facility]-Emergency Department Work Phone: Start: 09-19-2022 End: 09-19-2022 ambulatory Jessica Kruger Facility:[facility] Start: 09-19-2022 End: 09-19-2022 Patient encounter procedure UROLOGY PHYSICIAN-Inderjit Kruger UROLOGY PHYSICIAN Work Phone: [facility] Work Phone: Start: 08-30-2022 End: 08-30-2022 ambulatory JEAN PAUL BAILEY [facility] Start: 08-30-2022 Patient encounter status Cherrie R Bridle TELESALES SPECIALIST - PRODUCT OPERATIONS ASSOCIATE Work Phone: [facility] Work Phone: Start: 08-30-2022 Telephone encounter Cherrie R Yves idle TELESALES SPECIALIST - PRODUCT OPERATIONS ASSOCIATE Work Phone: [facility] [place] Comment on above: Financial File (Myesha ncial File 2022); Surgery Scheduling (Initial scheduling-orders placed) Start: 08-30-2022 End: 08-30-2022 Office outpatient new 45 minutes Jean Paul Bailey MD Work Phone: [facility] [place] Comment on above: GERD without esophag itis; Type 2 diabetes mellitus without complication, without long-term current use of insulin ([facility]/HCC) (HCC); Morbid obesity with BMI of 50.0-59.9, adult (HCC) Start: 08-28-2022 End: 08-28-2022 JESSICA KRUGER DEPOT MANAGER-C Work Phone: [facility] Start: 08-28-2022 End: 08-28-2022 JESSICA KRUGER DEPOT MANAGER-C Work Phone: [facility] Start: 08-25-2022 End: 08-25-2022 Office outpatient visit 25 minutes JESSICA KRUGER DEPOT MANAGER-C Work Phone: [facility] Start: 07-06-2022 ambulatory Jessica Kruger Faci lity:[facility] Start: 07-06-2022 Non-patient / Non-visit UROLOGY PHYSICIAN-C Francois Kruger UROLOGY PHYSICIAN Work Phone: [facility] Start: 07-06-2022 End: 07-06-2022 ambulatory UROLOGY PHYSICIAN-C Jessica Kruger UROLOGY PHYSICIAN Work Phone: [facility] Work Phone: Start: 07-06-2022 End: 07-06-2022 Patient encounter procedure UROLOGY PHYSICIAN-C Jessica Kruger UROLOGY PHYSICIAN Work Phone: [facility]-Cardiovasc ular Services Start: 06-30-2022 End: 06-30-2022 ambulatory Jessica Kruger Facility:[facility] Start: 06-30-2022 End: 06-30-2022 Admission to same day surgery center UROLOGY PHYSICIAN-C Jessica Kruger UROLOGY PHYSICIAN Work Phone: [facility]-Network Infrastructure Architect/Special Procedures Start: 06-21-2022 End: 06-21-2022 JESSICA KRUGER DEPOT MANAGER-C Work Phone: [facility] Start: 06-12-2022 End: 06-12-2022 ambulatory Jessica Kruger Facility:[facility] Start: 06-12-2022 End: 06-12-2022 Patient encounter procedure UROLOGY PHYSICIAN-C Jessica Kruger UROLOGY PHYSICIAN Work Phone: [facility] Start: 06-12-2022 End: 06-12-2022 ambulatory UROLOGY PHYSICIAN-C Jessica Kruger UROLOGY PHYSICIAN Work Phone: [facility] Work Phone: Start: 06-05-2022 End: 06-05-2022 JESSICA KRUGER DEPOT MANAGER-C Work Phone: [facility] Start: 06-05-2022 End: 06-05-2022 JESSICA KRUGER DEPOT MANAGER-C Work Phone: [facility] Start: 06-03-2022 ambulatory Jessica Kruger Faci lity:[facility] Start: 06-03-2022 Non-patient / Non-visit UROLOGY PHYSICIAN-C W simon Kruger UROLOGY PHYSICIAN Work Phone: [facility] Start: 06-02-2022 End: 06-02-2022 ambulatory UROLOGY PHYSICIAN-C Jessica Kruger UROLOGY PHYSICIAN Work Phone: [facility] Work Phone: Start: 06-02-2022 End: 06-02-2022 Patient encounter procedure UROLOGY PHYSICIAN-C Jessica Kruger UROLOGY PHYSICIAN [facility] Start: 06-02-2022 Non-patient / Non-visit UROLOGY PHYSICIAN-C W simon Kruger UROLOGY PHYSICIAN Work Phone: [facility] Start: 05-26-2022 End: 05-26-2022 Office outpatient visit 15 minutes JESSICA KRUGER DEPOT MANAGER-C Work Phone: [facility] Start: 05-18-2022 End: 05-18-2022 Emergency department patient visit Tito Alexander Facility:[facility] Start: 05-18-2022 End: 05-18-2022 Emergency department patient visit UROLOGY PHYSICIAN-C Jessica Kruger UROLOGY PHYSICIAN Work Phone: [facility]-Emergency Department Start: 05-17-2022 End: 05-17-2022 JESSICA KRUGER DEPOT MANAGER-C Work Phone: [facility]. Start: 05-16-2022 End: 05-16-2022 ambulatory Jessica Kruger Facility:[facility] Start: 05-16-2022 Non-patient / Non-visit UROLOGY PHYSICIAN-C Francois Kruger UROLOGY PHYSICIAN Work Phone: [facility] Start: 05-16-2022 End: 05-16-2022 Patient encounter procedure UROLOGY PHYSICIAN-C Jessica Kruger UROLOGY PHYSICIAN Work Phone: [facility]Cardiovasc ular Services Start: 05-11-2022 End: 05-11-2022 JESSICA KRUGER DEPOT MANAGER-C Work Phone: [facility]. Start: 05-11-2022 End: 05-15-2022 ambulatory JESSICA KRUGER TELESALES SPECIALIST-PRODUCT OPERATIONS ASSOCIATE Facility:A Start: 05-10-2022 End: 05-10-2022 Office outpatient visit 15 minutes JESSICA KRUGER DEPOT MANAGER-C Work Phone: [facility]. Start: 03-10-2022 End: 03-10-2022 JESSICA KRUGER DEPOT MANAGER-C Work Phone: [facility] Department[facility]. Start: 03-08-2022 End: 03-08-2022 Office outpatient visit 25 minutes JESSICA KRUGER DEPOT MANAGER-C Work Phone: [facility] Department[facility]. Start: 03-08-2022 End: 03-08-2022 JESSICA KRUGER DEPOT MANAGER-C Work Phone: [facility] Start: 02-14-2022 End: 02-15-2022 JESSICA KRUGER DEPOT MANAGER-C Work Phone: [facility] Start: 10-24-2021 End: 10-24-2021 Admission to same day surgery center [facility] Start: 10-24-2021 End: 10-24-2021 ambulatory [facility] Work Phone: Start: 10-08-2021 End: 10-08-2021 JESSICA KRUGER DEPOT MANAGER-C Work Phone: [facility] Start: 09-06-2021 End: 09-06-2021 ambulatory Pako Appiah MD Work Phone: Hematology/Oncology Comment on above: MGUS (monoclonal dayron mopathy of unknown significance) (Primary Dx) Start: 09-06-2021 End: 09-06-2021 Patient encounter procedure aPko Appiah MD Work Phone: [facility] Start: 08-25-2021 End: 08-25-2021 Subsequent hospital visit by physician [facility] Work Phone: Radiology Comment on above: MGUS (monoclonal dayron mopathy of unknown significance) [D47.2] Start: 08-24-2021 End: 08-24-2021 JESSICA KRUGER DEPOT MANAGER-C Work Phone: [facility] [facility] Start: 08-24-2021 End: 08-24-2021 JESSICA KRUGER DEPOT MANAGER-C Work Phone: [facility] [place] [facility] Start: 08-23-2021 End: 08-23-2021 ambulatory Pako Appiah MD Work Phone: Hematology/Oncology Comment on above: MGUS (monoclonal dayron mopathy of unknown significance) (Primary Dx) Start: 08-23-2021 End: 08-23-2021 Patient encounter procedure Pako Appiah MD Work Phone: [facility] Start: 08-02-2021 End: 08-02-2021 JESSICA HOFSTETTER DEPOT MANAGER-C [facility] [employer] [facility] Start: 08-02-2021 End: 08-02-2021 JESSICA HOFSTETTER DEPOT MANAGER-C Work Phone: [facility] [facility] [place] [facility] DepartmentV[facility]. Start: 08-01-2021 End: 08-01-2021 JESSICA HOFSTETTER DEPOT MANAGER-C Work Phone: [facility] [place] [facility] DepartmentV[facility]. Start: 07-28-2021 End: 07-28-2021 JESSICA HOFSTETTER DEPOT MANAGER-C Work Phone: [employer] [facility] [facility] PennsylvaniaS[facility]. Start: 07-26-2021 End: 07-26-2021 JESSICA HOFSTETTER DEPOT MANAGER-C Work Phone: [place] [employer] [facility] [place] [facility] Department[facility]. Start: 07-25-2021 End: 07-25-2021 Office outpatient visit 15 minutes JESSICA HOFSTETTER DEPOT MANAGER-C Work Phone: [place] [facility] [facility] PennsylvaniaClear[facility] [employer] Start: 06-01-2021 End: 06-01-2021 Office outpatient visit 15 minutes JESSICA HOFSTETTER DEPOT MANAGER-C Work Phone: [employer] [facility] [facility] DepartmentV[facility]. Start: 03-12-2021 End: 03-12-2021 JESSICA HOFSTETTER DEPOT MANAGER-C Work Phone: [employer] [facility] [place] [facility] Department[facility]. Start: 03-12-2021 End: 03-12-2021 JESSICA HOFSTETTER DEPOT MANAGER-C Work Phone: [facility]. Start: 03-09-2021 End: 03-09-2021 Office outpatient visit 25 minutes JESSICA HOARJUNTETTER DEPOT MANAGER-C Work Phone: [facility] Start: 11-24-2020 End: 11-24-2020 Office outpatient visit 15 minutes JESSICA HOFSTETTER DEPOT MANAGER-C Work Phone: [facility]. Start: 10-28-2020 End: 10-28-2020 JESSICA HOFSTETTER DEPOT MANAGER-C Work Phone: [facility]. Start: 10-27-2020 End: 10-27-2020 Office outpatient visit 15 minutes JESSICA HOFSTETTER DEPOT MANAGER-C Work Phone: [facility]. Start: 08-23-2020 End: 08-23-2020 JESSICA HOFSTETTER DEPOT MANAGER-C Work Phone: [facility]. Start: 07-30-2020 End: 07-30-2020 Office outpatient visit 15 minutes JESSICA HOFSTETTER DEPOT MANAGER-C Work Phone: [facility] Start: 07-23-2020 End: 07-23-2020 JESSICA HOFSTETTER DEPOT MANAGER-C Work Phone: [facility]. Start: 07-21-2020 End: 07-21-2020 JESSICA HOFSTETTER DEPOT MANAGER-C Work Phone: [facility] [place] [facility] Department[facility]. Start: 07-21-2020 End: 07-21-2020 Office outpatient visit 25 minutes JESSICA HOFSTETTER DEPOT MANAGER-C Work Phone: [facility] [place] [facility] DepartmentV[facility]. Start: 06-08-2020 End: 06-08-2020 JESSICA HOFSTETTER DEPOT MANAGER-C Work Phone: [facility]. Start: 06-04-2020 End: 06-04-2020 JESSICA HOARJUNTETTER DEPOT MANAGER-C Work Phone: [facility]. Start: 06-04-2020 End: 06-04-2020 JESSICA HOFSTETTER DEPOT MANAGER-C Work Phone: [facility]. Start: 06-03-2020 End: 06-03-2020 JESSICA HOFSTETTER DEPOT MANAGER-C Work Phone: [facility]. Start: 05-31-2020 End: 05-31-2020 Office outpatient visit 15 minutes JESSICA HOFSTETTER DEPOT MANAGER-C Work Phone: [facility]. Start: 05-24-2020 End: 05-24-2020 JESSICA HOFSTETTER DEPOT MANAGER-C Work Phone: [facility]. Start: 05-18-2020 End: 05-18-2020 Office outpatient visit 15 minutes JESSICA HOFSTETTER DEPOT MANAGER-C Work Phone: [facility]. Start: 02-12-2020 End: 02-12-2020 Office outpatient visit 15 minutes JESSICA HOFSTETTER DEPOT MANAGER-C Work Phone: [facility]. Start: 01-16-2020 End: 01-16-2020 JESSICA HOFSTETTER DEPOT MANAGER-C Work Phone: [facility]. Start: 01-09-2020 End: 01-09-2020 Office outpatient visit 15 minutes JESSICA HOFSTETTER DEPOT MANAGER-C Work Phone: [facility] Start: 12-30-2019 End: 12-30-2019 JESSICA HOFSTETTER DEPOT MANAGER-C Work Phone: [facility]. Start: 12-29-2019 End: 12-29-2019 JESSICA HOFFMANTTER DEPOT MANAGER-C Work Phone: [facility]. Start: 12-10-2019 End: 12-10-2019 JESSICA HOFSTETTER DEPOT MANAGER-C Work Phone: [facility], [employer]. Start: 12-10-2019 End: 12-10-2019 Transitional care manage srvc 7 day discharge JESSICA HOFSTETTER DEPOT MANAGER-C Work Phone: [facility] Start: 12-01-2019 End: 12-01-2019 Office outpatient visit 15 minutes JESSICA HOFSTETTER DEPOT MANAGER-C Work Phone: [facility] Start: 11-06-2019 End: 11-06-2019 JESSICA HOFSTETTER DEPOT MANAGER-C Work Phone: [facility] Start: 11-06-2019 End: 11-06-2019 Office outpatient visit 25 minutes JESSICA HOFSTETTER DEPOT MANAGER-C Work Phone: [facility], [employer]. Start: 10-22-2019 End: 10-23-2019 JESISCA HOARJUNTETTER DEPOT MANAGER-C Work Phone: [facility]. Start: 08-22-2019 End: 08-22-2019 JESSICA HOFSTETTER DEPOT MANAGER-C Work Phone: [facility] Start: 04-14-2019 End: 04-14-2019 JESSICA HOFSTETTER DEPOT MANAGER-C Work Phone: [facility], [employer]. Start: 04-14-2019 End: 04-14-2019 Office outpatient visit 15 minutes JESSICA HOFSTETTER DEPOT MANAGER-C Work Phone: [facility]. Start: 04-08-2018 End: 04-08-2018 JESSICA CAINTETTER DEPOT MANAGER-C Work Phone: [facility], [employer]. Start: 04-02-2018 End: 04-02-2018 JESSICA HOARJUNTETTER DEPOT MANAGER-C Work Phone: [facility]. Start: 04-02-2018 End: 04-02-2018 Office outpatient visit 15 minutes JESSICA HOFSTETTER DEPOT MANAGER-C Work Phone: [facility]. Start: 03-21-2018 End: 03-21-2018 Office outpatient visit 15 minutes JESSICA HOFSTETTER DEPOT MANAGER-C Work Phone: [facility] [place] [facility]. Start: 10-01-2017 End: 10-01-2017 Office outpatient visit 15 minutes JESSICA HOFSTETTER DEPOT MANAGER-C [facility] Phone: [facility] Start: 09-15-2017 End: 09-17-2017 Office outpatient visit 15 minutes JESSICA HOFSTETTER DEPOT MANAGER-C Work Phone: [facility] Start: 09-12-2017 End: 09-12-2017 Office outpatient visit 15 minutes JESSICA HOFSTETTER DEPOT MANAGER-C Work Phone: [facility] Start: 07-17-2017 End: 07-17-2017 Office outpatient visit 15 minutes JESSICA HOFSTETTER DEPOT MANAGER-C Work Phone: [facility], [employer]. Start: 07-12-2017 End: 07-12-2017 JESSICA HOFSTETTER DEPOT MANAGER-C Work Phone: [facility], [employer]. Start: 06-25-2017 End: 06-25-2017 Office outpatient visit 15 minutes JESSICA HOFSTETTER DEPOT MANAGER-C Work Phone: [facility], [employer]. Start: 06-07-2017 End: 06-07-2017 Office outpatient visit 15 minutes JESSICA HOFFMANTTER DEPOT MANAGER-C Work Phone: [facility] Start: 05-30-2017 End: 05-30-2017 JESSICA HOARJUNTETTER DEPOT MANAGER-C Work Phone: [facility] Start: 05-25-2017 End: 05-25-2017 Office outpatient visit 15 minutes JESSICA HOFSTETTER DEPOT MANAGER-C Work Phone: [facility] Start: 05-17-2017 End: 05-17-2017 Office outpatient visit 15 minutes JESSICA HOFSTETTER DEPOT MANAGER-C Work Phone: [facility] Start: 04-27-2017 End: 04-27-2017 Office outpatient visit 15 minutes JESSICA HOARJUNTETTER DEPOT MANAGER-C Work Phone: [facility] Start: 04-21-2017 End: 04-21-2017 Office outpatient visit 15 minutes JESSICA HOFSTETTER DEPOT MANAGER-C Work Phone: [facility] Start: 03-23-2017 End: 03-23-2017 Office outpatient visit 15 minutes JESSICA HOFSTETTER DEPOT MANAGER-C Work Phone: [facility] Start: 03-06-2017 End: 03-06-2017 JESSICA HOFSTETTER DEPOT MANAGER-C Work Phone: [facility], [employer]. Start: 02-13-2017 End: 02-13-2017 JESSICA HOFSTETTER DEPOT MANAGER-C Work Phone: [facility], [employer]. Start: 02-13-2017 End: 02-13-2017 JESSICA HOFSTETTER DEPOT MANAGER-C Work Phone: [facility] [employer] Start: 02-09-2017 End: 02-09-2017 Office outpatient visit 15 minutes JESSICA HOARJUNTETTER DEPOT MANAGER-C Work Phone: [facility] Start: 01-04-2017 End: 01-04-2017 Office outpatient visit 15 minutes JESSICA HOFSTETTER DEPOT MANAGER-C Work Phone: [facility] Start: 12-27-2016 End: 12-27-2016 Office outpatient visit 15 minutes JESSICA HOFSTETTER DEPOT MANAGER-C Work Phone: [facility] [email or web address] Start: 12-01-2016 End: 12-01-2016 Office outpatient visit 15 minutes JESSICA HOFSTETTER DEPOT MANAGER-C Work Phone: [facility] [email or web address] Start: 10-25-2016 End: 10-25-2016 JESSICA HOFSTETTER DEPOT MANAGER-C Work Phone: [facility] [employer] Start: 10-19-2016 End: 10-19-2016 Office outpatient visit 15 minutes JESSICA HOFSTETTER DEPOT MANAGER-C Work Phone: [facility] [email or web address] Start: 09-12-2016 End: 09-12-2016 JESSICA HOFSTETTER DEPOT MANAGER-C Work Phone: [facility] [employer] Start: 09-12-2016 End: 09-12-2016 Office outpatient visit 15 minutes JESSICA HOFSTETTER DEPOT MANAGER-C Work Phone: [facility] [employer] Start: 09-07-2016 End: 09-07-2016 JESSICA HOFSTETTER DEPOT MANAGER-C Work Phone: [facility], [employer]. Start: 09-06-2016 End: 09-06-2016 JESSICA HOFSTETTER DEPOT MANAGER-C Work Phone: [facility] [employer] Start: 09-06-2016 End: 09-06-2016 Office outpatient visit 15 minutes JESSICA HOFFMANTTER DEPOT MANAGER-C Work Phone: [facility] [employer], [employer] Start: 08-14-2016 End: 08-14-2016 Office outpatient visit 15 minutes JESSICA HOARJUNTETTER DEPOT MANAGER-C Work Phone: [facility] Start: 06-19-2016 End: 06-19-2016 Office outpatient visit 15 minutes JESSICA HOFSTETTER DEPOT MANAGER-C Work Phone: [facility] [email or web address] Start: 04-17-2016 End: 04-17-2016 Office outpatient visit 15 minutes JESSICA HOARJUNTETTER DEPOT MANAGER-C Work Phone: [facility] Start: 04-14-2016 End: 04-14-2016 JESSICA HOARJUNTETTER DEPOT MANAGER-C Work Phone: [facility] [employer] Start: 03-21-2016 End: 03-21-2016 Office outpatient visit 15 minutes JESSICA CAINTETTER DEPOT MANAGER-C Work Phone: [facility] [email or web address] Start: 01-04-2016 End: 01-04-2016 JESSICA HOARJUNTETTER DEPOT MANAGER-C Work Phone: [facility] [employer] Start: 01-04-2016 End: 01-04-2016 JESSICA HOARJUNTETTER DEPOT MANAGER-C Work Phone: [place] [employer] [facility] [employer] Start: 01-04-2016 End: 01-04-2016 Office outpatient visit 15 minutes JESSICA HOFSTETTER DEPOT MANAGER-C Work Phone: [place] [employer] [facility] [email or web address] Start: 11-30-2015 End: 11-30-2015 Office outpatient visit 15 minutes JESSICA HOFSTETTER DEPOT MANAGER-C Work Phone: [place] [employer] [facility] Start: 11-19-2015 End: 11-19-2015 Office outpatient visit 15 minutes JESSICA HOFFMANTTER DEPOT MANAGER-C Work Phone: [facility] Start: 11-16-2015 End: 11-16-2015 Office outpatient visit 25 minutes JESSICA HOFFMANTTER DEPOT MANAGER-C Work Phone: [facility] [employer] Start: 11-12-2015 End: 11-12-2015 JESSICA HOARJUNTETTER DEPOT MANAGER-C Work Phone: [facility] Start: 11-11-2015 End: 11-11-2015 JESSICA HOFSTETTER DEPOT MANAGER-C Work Phone: [facility] Start: 11-08-2015 End: 11-08-2015 JESSICA HOARJUNTETTER DEPOT MANAGER-C Work Phone: [facility] Start: 11-04-2015 End: 11-04-2015 JESSICA HOARJUNTETTER DEPOT MANAGER-C Work Phone: [facility] [employer] Start: 11-04-2015 End: 11-04-2015 Office outpatient visit 15 minutes JESSICA HOFFMANTTER DEPOT MANAGER-C Work Phone: [facility] Start: 11-03-2015 End: 11-03-2015 JESSICA HOARJUNTETTER DEPOT MANAGER-C Work Phone: [facility] Start: 10-22-2015 End: 10-22-2015 JESSICA HOFSTETTER DEPOT MANAGER-C Work Phone: [facility] Start: 10-21-2015 End: 10-21-2015 JESSICA HOQuadia Online VideoTETTER DEPOT MANAGER-C Work Phone: [place] [employer] [facility] Start: 10-06-2015 End: 10-06-2015 JESSICA HOFFMANTTER DEPOT MANAGER-C Work Phone: [facility] Start: 10-06-2015 End: 10-06-2015 JESSICA HOLACHOTTER DEPOT MANAGER-C Work Phone: [facility], [facility] Start: 10-05-2015 End: 10-05-2015 Office outpatient visit 15 minutes JESSICA HOFFMANTTER DEPOT MANAGER-C Work Phone: [facility] Start: 08-11-2015 End: 08-11-2015 Medication Lorraine Fareed PA-C Work Phone: [facility] Start: 07-30-2015 End: 07-30-2015 Home visit Lorraine Guerrier PA-C Work Phone: [facility] [employer]. Start: 06-26-2015 End: 06-26-2015 JESSICA HOARJUNTETTER DEPOT MANAGER-C Work Phone: [facility] Start: 06-04-2015 End: 06-04-2015 JESSICA HOFSTETTER DEPOT MANAGER-C Work Phone: [facility] Start: 06-04-2015 End: 06-04-2015 Office outpatient visit 15 minutes JESSICA HOFSTETTER DEPOT MANAGER-C Work Phone: [facility] Start: 03-01-2015 End: 03-01-2015 Office outpatient visit 15 minutes JESSICA HOFSTETTER DEPOT MANAGER-C Work Phone: [facility] Start: 12-15-2014 End: 12-15-2014 JESSICA HOFSTETTER DEPOT MANAGER-C Work Phone: [facility] Start: 12-07-2014 End: 12-07-2014 JESSICA HOFSTETTER DEPOT MANAGER-C Work Phone: [facility] Start: 11-05-2014 End: 11-05-2014 JESSICA SARABIAER DEPOT MANAGER-C Work Phone: [facility], [facility] Start: 10-30-2014 End: 10-30-2014 JESSICA HOFFMANTTER DEPOT MANAGER-C Work Phone: [facility], [facility] Start: 10-06-2014 End: 10-06-2014 Office outpatient visit 15 minutes JESSICA HOFFMANTTER DEPOT MANAGER-C Work Phone: [facility], [facility] Start: 10-02-2014 End: 10-02-2014 JESSICA HOFSTETTER DEPOT MANAGER-C Work Phone: [facility] Start: 09-30-2014 End: 09-30-2014 JESSICA HOFSTETTER DEPOT MANAGER-C Work Phone: [facility] Start: 09-29-2014 End: 09-29-2014 Office outpatient visit 15 minutes JESSICA HOFFMANTTER DEPOT MANAGER-C Work Phone: [facility] Start: 04-14-2014 End: 04-14-2014 Office outpatient visit 15 minutes JESSICA HOFFMANTTER DEPOT MANAGER-C Work Phone: [facility] Start: 04-14-2014 End: 04-14-2014 Patient encounter status JESSICA HOFFMANTTER DEPOT MANAGER-C Work Phone: [facility] [place] [employer] [facility] [employer] Start: 06-04-2013 End: 06-04-2013 JESSICA HOFFMANTTER DEPOT MANAGER-C Work Phone: [facility], [employer]. Start: 05-06-2013 End: 05-06-2013 JESSICA HOFSTETTER DEPOT MANAGER-C Work Phone: [place] [employer] [facility] [employer] Start: 05-06-2013 End: 05-06-2013 JESSICA KRUGER DEPOT MANAGER-C Work Phone: [facility] Start: 03-07-2011 End: 03-07-2011 JESSICA KRUGER DEPOT MANAGER-C Work Phone: [facility] Start: 02-27-2011 End: 02-27-2011 JESSICA KRUGER DEPOT MANAGER-C Work Phone: [facility] Procedures Date Procedure Procedure Detail Performing Clinician Start: 06-26-2024 End: 06-26-2024 Most Recent Endo Report Lorrainejakub Guerrier PA- C Work Phone: Comment on above: no records Start: 05-13-2024 End: 05-13-2024 Most Recent Endo Report Lorraine Guerrier PA- C Work Phone: Comment on above: no records Start: 05-03-2023 End: 05-03-2023 Dischrg meds reconciled w/current med list JESSICA Malhotra PAYTONVENKATESH DEPOT MANAGER-C Work Phone: Start: 01-05-2023 Adult depression scr eening assessment Eliane Han MD Work Phone: Start: 12-18-2022 Glucose quantitative blood xcpt reagent strip Jean Paul Bailey MD Work Phone: Start: 12-15-2022 End: 12-15-2022 Dischrg meds reconciled w/current med list JESSICA Malhotra PAYTONMONICAJANAERACHNA DEPOT MANAGER-C Work Phone: Start: 12-15-2022 End: 12-15-2022 Foot examination performed JESSICA Roscoe GLASS DEPOT MANAGER-C Work Phone: Start: 12-09-2022 Plain X-ray of shoulder UROLOGY PHYSICIAN-C Jessica Krugre UROLOGY PHYSICIAN Work Phone: Start: 09-30-2022 Radiologic examination of knee UROLOGY PHYSICIAN-C Jessica Kruger UROLOGY PHYSICIAN Work Phone: Start: 08-25-2022 End: 08-25-2022 Dischrg meds reconciled w/current med list JESSICA KRUGER DEPOT MANAGER-C Work Phone: Start: 05-26-2022 End: 05-26-2022 Dischrg meds reconciled w/current med list JESSICA Malhotra PAYTONMONICAFABIANO DEPOT MANAGER-C Work Phone: Start: 05-18-2022 CT angiography of ch est with contrast UROLOGY PHYSICIAN-C Jessica Kruger UROLOGY PHYSICIAN Work Phone: Start: 05-18-2022 Plain chest X-ray UROLOGY PHYSICIAN-C Jessica Kruger UROLOGY PHYSICIAN Work Phone: Start: 05-17-2022 End: 05-17-2022 Dup-scan xtr veins unilateral/limited study JESSICA KRUGER DEPOT MANAGER-C Work Phone: Start: 05-10-2022 End: 05-10-2022 Dischrg meds reconciled w/current med list Crissy F Macrina Start: 03-08-2022 End: 03-08-2022 Dischrg meds reconciled w/current med list JESSICA KRUGER DEPOT MANAGER-C Work Phone: Start: 10-24-2021 Fluoroscopy guided i njection of cervical spinal nerve root Start: 10-24-2021 Local anesthetic cer vical epidural block Start: 08-25-2021 Radiologic examinati on osseous survey compl Pako Appiah MD Work Phone: Start: 08-01-2021 End: 08-01-2021 Us soft tissue head & neck real time imge docm Bryan ISSA MD Work Phone: Start: 07-28-2021 End: 07-28-2021 Radiologic exam esophagus single contrast study Bryan ISSA MD Work Phone: Start: 07-25-2021 End: 07-25-2021 Dischrg meds reconciled w/current med list Bryan ISSA MD Work Phone: Start: 06-01-2021 End: 06-01-2021 Dischrg meds reconciled w/current med list JESSICA HOFFMANTTER DEPOT MANAGER-C Work Phone: Start: 11-24-2020 End: 11-24-2020 Dischrg meds reconciled w/current med list JESSICA Malhotra HOLACHOTTER DEPOT MANAGER-C Work Phone: Start: 07-30-2020 End: 07-30-2020 Dischrg meds reconciled w/current med list JESSICA Malhotra HOLACHOTTER DEPOT MANAGER-C Work Phone: Start: 07-30-2020 End: 07-30-2020 Nuvia Cohen RN Start: 07-21-2020 End: 07-21-2020 Dischrg meds reconciled w/current med list JESSICA HOFFMANTTER DEPOT MANAGER-C Work Phone: Start: 12-10-2019 End: 12-10-2019 Dischrg meds reconciled w/current med list Bryan ISSA MD Work Phone: Start: 12-01-2019 End: 12-01-2019 Dischrg meds reconciled w/current med list JIAN BRIONES MD Work Phone: Start: 11-06-2019 End: 11-06-2019 Collj & interpj physiol data min 30 min ea 30 d JIAN BRIONES MD Work Phone: Start: 07-31-2019 End: 07-31-2019 JESSICA KRUGER DEPOT MANAGER-C Work Phone: Start: 04-14-2019 End: 04-14-2019 Dischrg meds reconciled w/current med list JIAN BRIONES MD Work Phone: Start: 04-02-2018 End: 04-02-2018 Dischrg meds reconciled w/current med list Bryan ISSA MD Work Phone: Start: 09-22-2017 End: 09-22-2017 Nuvia Cohen RN Start: 09-12-2017 End: 09-12-2017 Incision & removal foreign body subq tiss simple SHAWN ARAMBULA MD Work Phone: Start: 07-17-2017 End: 07-17-2017 Therapeutic prophylactic/dx injection subq/im R LUIS ISSA MD Work Phone: Start: 07-17-2017 End: 07-17-2017 Triamcinolone acet inj NOS R LUIS Puckett MD Work Phone: Start: 04-21-2017 End: 04-21-2017 Lincomycin injection JIAN BRIONES MD Work Phone: Start: 04-21-2017 End: 04-21-2017 Therapeutic prophylactic/dx injection subq/im JIAN BRIONES MD Work Phone: Start: 02-09-2017 End: 02-09-2017 Ketorolac tromethamine inj JIAN Moscoso MD Work Phone: Start: 02-09-2017 End: 02-09-2017 Therapeutic prophylactic/dx injection subq/im JIAN BRIONES MD Work Phone: Start: 09-08-2016 End: 09-08-2016 Cholecystectomy JESSICA KRUGER DEPOT MANAGER-C Work Phone: Start: 06-19-2016 End: 06-19-2016 Therapeutic prophylactic/dx injection subq/im LUIS BRIONES MD Work Phone: Start: 06-19-2016 End: 06-19-2016 Triamcinolone acet inj NOS LUIS BRIONES MD Work Phone: Start: 04-17-2016 End: 04-17-2016 Ceftriaxone sodium injection SHAWN HEATON MD Work Phone: Start: 04-17-2016 End: 04-17-2016 Therapeutic prophylactic/dx injection subq/im SHAWN ARAMBULA MD Work Phone: Start: 11-12-2015 End: 11-12-2015 Cardiovascular stress testing JESSICA SARABIAER DEPOT MANAGER-C Work Phone: Start: 09-29-2014 End: 10-02-2014 Us lmtd joint/oth nonvasc xtr strux r-t w/img Bryan ISSA MD Work Phone: Start: 09-05-2014 End: 09-05-2014 Ultrasonography JESSICA KRUGER DEPOT MANAGER-C Work Phone: Start: 04-24-2013 End: 04-24-2013 Echocardiography JESSICA KRUGER DEPOT MANAGER-C Work Phone: Start: 02-27-2011 End: 02-27-2011 Ceftriaxone sodium injection Bryan KENYON MD Work Phone: Start: 02-27-2011 End: 02-27-2011 Therapeutic prophylactic/dx injection subq/im Bryan ISSA MD Work Phone: Start: 08-14-2008 End: 08-14-2008 Nuvia Cohen RN Start: 02-06-1996 End: 02-06-1996 JESSICA SARABIAER DEPOT MANAGER-C Work Phone: Computerized axial t omography of brain JESSICA SARABIAER DEPOT MANAGER-C Work Phone: Computerized axial t omography of brain JESSICA SARABIAER DEPOT MANAGER-C Work Phone: CT of abdomen JESSICA CAIN TETTER DEPOT MANAGER-C Work Phone: CT of abdomen JESSICA CAIN TETTER DEPOT MANAGER-C Work Phone: CT of chest JESSICA CAINT MILAGRO DEPOT MANAGER-C Work Phone: CT of chest JESSICA CAINT MILAGRO DEPOT MANAGER-C Work Phone: Doppler studies JESSICA HERNANDEZ FSTETTER DEPOT MANAGER-C Work Phone: Doppler studies JESSICA WILKINSETTER DEPOT MANAGER-C Work Phone: Electrocardiographic procedure JESSICA M HOFSTETTER DEPOT MANAGER-C Work Phone: Electrocardiographic procedure JESSICA SARABIAER DEPOT MANAGER-C Work Phone: History of cholecystectomy Francois Malhotra HOCULLENER DEPOT MANAGER-C Work Phone: History of cholecystectomy Francois HOFFMANTTER DEPOT MANAGER-C Work Phone: History of cholecystectomy W SIMON SARABIAER DEPOT MANAGER-C Work Phone: Magnetic resonance imaging Francois SARABIAER DEPOT MANAGER-C Work Phone: Magnetic resonance imaging Francois KRUGER DEPOT MANAGER-C Work Phone: Plain chest X-ray JESSICA KRUGER DEPOT MANAGER-C Work Phone: Plain chest X-ray JESSICA SARABIAER DEPOT MANAGER-C Work Phone: Radionuclide biliary patency study JESSICA KRUGER DEPOT MANAGER-C Work Phone: Radionuclide biliary patency study JESSICA KRUGER DEPOT MANAGER-C Work Phone: SARS-CoV-2 & FLU Ant igen (Rapid) UROLOGY PHYSICIAN-C Jessica Kruger UROLOGY PHYSICIAN Work Phone: JESSICA CAINT MILAGRO DEPOT MANAGER-C Work Phone: JESSICA CAINT MILAGRO DEPOT MANAGER-C Work Phone: Plan of Treatment Date Care Activity Detail Author Start: 2039 RSV Immunization aged 60 or older (1 - 1-dose 60+ series) RSV Immunization aged 60 or older (1 - 1-dose 60+ series) [facility] Start: 2029 Zoster Vaccines (1 of 2) Zoster Vaccines (1 of 2) [facility] Start: 09-24-2024 Patient encounter procedure Medical; PHYSICAL - AWV [facility] Start: 24-Sep-2024 10:00-04:00 VALENTÍN Guerrier [facility]ment [facility] Start: 06-27-2024 Myocardial spect multiple studies Stress Test Nuclear Treadmill (47553) Start: 27-Jun-2024 [facility]; [facility] Start: 06-27-2024 Patient encounter procedure Medical; EXTENDED RTN - rtn [facility] Start: 27-Jun-2024 10:00-04:00 VALENTÍN Guerrier Appointment Request [facility] Start: 05-26-2024 Patient encounter procedure [facility] Start: 01-06-2024 Depression Screening Depression Screening [facility] Start: 12-16-2023 Hemoglobin A1c measurement Diabetes: Hemoglobin A1C [facility] Start: 09-21-2023 Lipid panel [facility]; [facility] Start: 09-21-2023 Hemoglobin glycosylated a1c [facility] Start: 08-24-2023 [facility] Start: 05-03-2023 Assay of thyroid stimulating hormone tsh [facility]; [facility] Start: 05-03-2023 Comprehensive metabolic panel [facility]; [facility] Start: 05-03-2023 Hemoglobin glycosylated a1c [facility]; [facility] Start: 04-20-2023 [facility] Start: 02-23-2023 End: 02-23-2023 Patient encounter procedure 02/23/2023 3:50 PM EST Office Visit [facility] [place] [address] [place] [address] Eliane Han MD [address] [place], [place] [address] [facility] Start: 02-14-2023 End: 02-14-2023 Patient encounter procedure 02/14/2023 7:45 AM EST Appointment [facility] [address] [place] [address] Rosana Travis, TELESALES SPECIALIST - PRODUCT OPERATIONS ASSOCIATE [address] [place] [address] [facility] Start: 02-07-2023 End: 02-07-2023 Patient encounter procedure 02/07/2023 10:40 AM EST Office Visit [facility] [address] [place] [address] Karen Alston APRN [address] [place] [id number] [facility] Start: 01-05-2023 End: 01-05-2023 Patient encounter procedure 01/05/2023 3:40 PM EST Office Visit [facility] [place] [address] [place] [phone] Eliane Han MD [address] [place], [place] [phone] [facility] [place] Start: 01-03-2023 End: 01-03-2023 Patient encounter procedure 01/03/2023 12:00 PM EST Appointment [facility] [address] [place] [address] [facility] Start: 01-03-2023 Subsequent hospital visit by physician 01/03/2023 12:00 PM EST Hospital Encounter [facility] [address] [place] [address] [facility] Start: 12-22-2022 End: 12-22-2022 Patient encounter procedure 12/22/2022 10:20 AM EST Office Visit [facility] [place] [address] [place] [phone] Eliane Han MD [address] [place], [place] [id number] [facility] [place] Start: 12-18-2022 End: 12-18-2022 Admission to same day surgery center 12/18/2022 7:30 AM EST - 12/18/2022 8:00 AM EST Surgery [facility] [address] [place] [phone] Jean Paul Bailey MD [address] [place], [place] [id number] EGD WITH BIOPSY [24047 (CPT )] [facility] Comment on above: EGD WITH BIOPSY [77460 (CPT )] Start: 12-18-2022 End: 12-18-2022 Egd transoral biopsy single/multiple [facility] Start: 12-18-2022 Subsequent hospital visit by physician 12/18/2022 7:30 AM EST Hospital Encounter [facility] [address] [place] [phone] Jean Paul Bailey MD [address] [place], [place] [id number] [facility] Start: 11-23-2022 End: 11-23-2022 Patient encounter procedure 11/23/2022 2:30 PM EDT Office Visit [facility] [place] [address] [place] [address] Jean Paul Bailey MD [address] [place], [place] [phone] Eliane Han MD [address] [place], [place] [id number] [facility] [place] Start: 11-15-2022 End: 11-16-2023 Complete PFT pre and post bronchodilator with FENO Complete PFT pre and post bronchodilator with FENO PFT Routine Asthma, unspecified asthma severity, unspecified whether complicated, unspecified whether persistent Expected: 11/15/2022 (Approximate), Expires: 11/16/2023 [facility] [employer] Work Phone: Comment on above: Expected: 11/15/2022 (Approximate), Expi res: 11/16/2023 Start: 10-20-2022 End: 10-20-2022 Clinical Support 10/20/2022 3:00 PM EDT Clinical Support [facility] [place] [address] [place] [phone] Jean Paul Bailey MD [address] [place] [address] [place] [address] [facility] [place] Start: 10-06-2022 Influenza vaccination Influenza Vaccine (#1) [facility] Start: 10-05-2022 End: 10-05-2022 Clinical Support 10/05/2022 3:00 PM EDT Clinical Support [facility] [place] [address] [place] [id number] Jean Paul Bailey MD [address] [place] [address] [place] [address] [facility] [place] Start: 09-29-2022 End: 09-16-2023 25-hydroxyvitamin D3 [Mass/volume] in Serum or Plasma Vitamin D Deficiency Screening (Vit D 25) Lab Routine GERD without esophagitis Type 2 diabetes mellitus without complication, without long-term current use of insulin ([facility]) (HCC) Morbid obesity with BMI of 50.0-59.9, adult (HCC) Expected: 09/29/2022 (Approximate), Expires: 09/16/2023 [facility] Comment on above: Expected: 09/29/2022 (Approximate), Expi res: 09/16/2023 Start: 09-29-2022 End: 09-16-2023 CBC panel - Blood by Automated count CBC Lab Routine GERD without esophagitis Type 2 diabetes mellitus without complication, without long-term current use of insulin (CMS/HCC) (HCC) Morbid obesity with BMI of 50.0-59.9, adult ([facility]) Expected: 09/29/2022 (Approximate), Expires: 09/16/2023 [employer] Comment on above: Expected: 09/29/2022 (Approximate), Expi res: 09/16/2023 Start: 09-29-2022 End: 09-16-2023 Cobalamin (Vitamin B12) [Mass/volume] in Serum or Plasma Vitamin B12 Lab Routine GERD without esophagitis Type 2 diabetes mellitus without complication, without long-term current use of insulin (CMS/[facility]) ([facility]) Morbid obesity with BMI of 50.0-59.9, adult ([facility]) Expected: 09/29/2022 (Approximate), Expires: 09/16/2023 [employer] Comment on above: Expected: 09/29/2022 (Approximate), Expi res: 09/16/2023 Start: 09-29-2022 End: 09-16-2023 Comprehensive metabolic 1998 panel - Serum or Plasma Comprehensive metabolic panel Lab Routine GERD without esophagitis Type 2 diabetes mellitus without complication, without long-term current use of insulin ([facility]) ([facility]) Morbid obesity with BMI of 50.0-59.9, adult ([facility]) Expected: 09/29/2022 (Approximate), Expires: 09/16/2023 [employer] Comment on above: Expected: 09/29/2022 (Approximate), Expi res: 09/16/2023 Start: 09-29-2022 End: 09-16-2023 Ferritin [Mass/volume] in Serum or Plasma Ferritin Lab Routine GERD without esophagitis Type 2 diabetes mellitus without complication, without long-term current use of insulin (CMS/[facility]) (HCC) Morbid obesity with BMI of 50.0-59.9, adult ([facility]) Expected: 09/29/2022 (Approximate), Expires: 09/16/2023 [employer] Comment on above: Expected: 09/29/2022 (Approximate), Expi res: 09/16/2023 Start: 09-29-2022 End: 09-16-2023 Folate [Mass/volume] in Serum or Plasma Folate Lab Routine GERD without esophagitis Type 2 diabetes mellitus without complication, without long-term current use of insulin (CMS/[facility]) (HCC) Morbid obesity with BMI of 50.0-59.9, adult (HCC) Expected: 09/29/2022 (Approximate), Expires: 09/16/2023 [employer] Comment on above: Expected: 09/29/2022 (Approximate), Expi res: 09/16/2023 Start: 09-29-2022 End: 09-16-2023 Hemoglobin A1c measurement Hemoglobin A1c Lab Routine GERD without esophagitis Type 2 diabetes mellitus without complication, without long-term current use of insulin ([facility]) (HCC) Morbid obesity with BMI of 50.0-59.9, adult (HCC) Expected: 09/29/2022 (Approximate), Expires: 09/16/2023 [employer] Work Phone: Comment on above: Expected: 09/29/2022 (Approximate), Expi res: 09/16/2023 Start: 09-29-2022 End: 09-16-2023 Hemoglobin A1c/Hemoglobin.total in Blood Hemoglobin A1c Lab Routine GERD without esophagitis Type 2 diabetes mellitus without complication, without long-term current use of insulin ([facility]) (HCC) Morbid obesity with BMI of 50.0-59.9, adult ([facility]) Expected: 09/29/2022 (Approximate), Expires: 09/16/2023 [employer] Work Phone: Comment on above: Expected: 09/29/2022 (Approximate), Expi res: 09/16/2023 Start: 09-29-2022 End: 09-16-2023 Iron and Iron binding capacity panel - Serum or Plasma Iron Lab Routine GERD without esophagitis Type 2 diabetes mellitus without complication, without long-term current use of insulin ([facility]) (HCC) Morbid obesity with BMI of 50.0-59.9, adult (HCC) Expected: 09/29/2022 (Approximate), Expires: 09/16/2023 [employer] Comment on above: Expected: 09/29/2022 (Approximate), Expi res: 09/16/2023 Start: 09-29-2022 End: 09-16-2023 Lipid 1996 panel - Serum or Plasma Lipid panel Lab Routine GERD without esophagitis Type 2 diabetes mellitus without complication, without long-term current use of insulin (CMS/HCC) (HCC) Morbid obesity with BMI of 50.0-59.9, adult ([facility]) Expected: 09/29/2022 (Approximate), Expires: 09/16/2023 [employer] Comment on above: Expected: 09/29/2022 (Approximate), Expi res: 09/16/2023 Start: 09-29-2022 End: 09-16-2023 Magnesium [Mass/volume] in Serum or Plasma Magnesium Lab Routine GERD without esophagitis Type 2 diabetes mellitus without complication, without long-term current use of insulin ([facility]) ([facility]) Morbid obesity with BMI of 50.0-59.9, adult ([facility]) Expected: 09/29/2022 (Approximate), Expires: 09/16/2023 [employer] Comment on above: Expected: 09/29/2022 (Approximate), Expi res: 09/16/2023 Start: 09-29-2022 End: 09-16-2023 Thyrotropin [Units/volume] in Serum or Plasma TSH Lab Routine GERD without esophagitis Type 2 diabetes mellitus without complication, without long-term current use of insulin ([facility]) ([facility]) Morbid obesity with BMI of 50.0-59.9, adult ([facility]) Expected: 09/29/2022 (Approximate), Expires: 09/16/2023 [employer] Comment on above: Expected: 09/29/2022 (Approximate), Expi res: 09/16/2023 Start: 09-29-2022 End: 09-16-2023 US Abdomen US abdomen complete Imaging Routine GERD without esophagitis Type 2 diabetes mellitus without complication, without long-term current use of insulin ([facility]) ([facility]) Morbid obesity with BMI of 50.0-59.9, adult ([facility]) Expected: 09/29/2022 (Approximate), Expires: 09/16/2023 [employer] Comment on above: Expected: 09/29/2022 (Approximate), Expi res: 09/16/2023 Start: 09-29-2022 End: 09-16-2023 Vitamin B1, whole blood Vitamin B1, whole blood Lab Routine GERD without esophagitis Type 2 diabetes mellitus without complication, without long-term current use of insulin ([facility]) ([facility]) Morbid obesity with BMI of 50.0-59.9, adult ([facility]) Expected: 09/29/2022 (Approximate), Expires: 09/16/2023 [employer] Comment on above: Expected: 09/29/2022 (Approximate), Expi res: 09/16/2023 Start: 09-29-2022 End: 09-16-2023 XR Abdomen and RF Gastrointestinal tract upper W contrast PO FL upper GI w KUB Imaging Routine GERD without esophagitis Type 2 diabetes mellitus without complication, without long-term current use of insulin ([facility]) ([facility]) Morbid obesity with BMI of 50.0-59.9, adult ([facility]) Expected: 09/29/2022 (Approximate), Expires: 09/16/2023 [employer] Comment on above: Expected: 09/29/2022 (Approximate), Expi res: 09/16/2023 Start: 09-29-2022 End: 09-16-2023 Zinc Zinc Lab Routine GERD without esophagitis Type 2 diabetes mellitus without complication, without long-term current use of insulin ([facility]) ([facility]) Morbid obesity with BMI of 50.0-59.9, adult ([facility]) Expected: 09/29/2022 (Approximate), Expires: 09/16/2023 [employer] Comment on above: Expected: 09/29/2022 (Approximate), Expi res: 09/16/2023 Start: 09-19-2022 End: 09-20-2023 Nicotine, Blood Nicotine, Blood Lab Routine Encounter for screening for tobacco use Expected: 09/19/2022, Expires: 09/20/2023 [facility] [employer] Comment on above: Expected: 09/19/2022, Expires: Start: 07-06-2022 Echo tthrc r-t 2d w/wom-mode compl spec&colr d TTE W/DOPPLER COMPLETE [facility] Start: 05-26-2022 Cv strs tst xers&/or rx cont ecg w/si&r [facility]. Start: 10-24-2021 Radiography of spine [facility] Work Phone: Start: 10-24-2021 Patient discharge [facility] Work Phone: Start: 10-06-2021 Influenza vaccination INFLUENZA (#1) [facility] Start: 08-23-2021 End: 10-23-2021 MONOCLONAL PROTEIN, SERUM (BLOOD) [facility] Work Phone: Comment on above: Expected: 08/23/2021, Expires: 2 Start: 08-23-2021 End: 10-23-2021 PROTEIN ELECTROPHORESIS SERUM W/INTERP [facility] Work Phone: Comment on above: Expected: 08/23/2021, Expires: 2 Start: 03-09-2021 Foot examination performed [employer]; [employer]. Start: 06-04-2020 Culture bct isol&prsmptv id isolate ea urine [employer]; [employer] Start: 11-06-2019 [employer] Start: 2019 Mammography MAMMOGRAM [facility] Start: 2019 Screening for malignant neoplasm of breast Mammogram [facility] Start: 04-02-2018 [employer], [employer]. Start: 04-02-2018 Culture bacterial quanttative colony count urine [employer] Start: 09-12-2017 Td vaccine prsrv free 7 yrs or older for im use [employer] Start: 09-12-2017 [employer] Start: 06-25-2017 Screening mammography bi 2-view breast inc cad [employer] Start: 06-25-2017 Sleep std rec vntj respir ecg/hrt rate&o2 attn [employer], [employer]. Start: 05-17-2017 [employer], [employer]. Start: 04-27-2017 Radiologic exam chest 2 views [facility] [employer].; [employer] [facility], [employer]. Start: 03-23-2017 Removal impacted cerumen irrigation/lvg unilat [facility] [employer].; [employer] [facility], Inc[employer] Start: 01-04-2017 [facility] [employer] [facility], [employer]. Start: 12-27-2016 [facility] [employer].; [employer] [facility], Inc. Start: 10-25-2016 End: 10-25-2016 Collj & interpj physiol data min 30 min ea 30 d [facility] [email or web address]. Start: 10-19-2016 Radiologic examination knee 3 views [facility] [employer].; [employer] Start: 09-12-2016 Blood count complete auto&auto difrntl wbc [facility] [employer]; [employer] [facility], Inc. Start: 09-06-2016 Ct abdomen & pelvis w/contrast material [facility] [employer]. Start: 09-06-2016 Hemoglobin glycosylated a1c [facility] [employer], [employer]. Start: 11-16-2015 Complete tthrc echo congenital cardiac anomaly [facility] [employer].; [employer] [facility], [employer]. Start: 11-04-2015 Complete tthrc echo congenital cardiac anomaly [facility] [email or web address], [employer]. Start: 11-04-2015 Cv strs tst xers&/or rx cont ecg w/si&r [email or web address] [facility] [employer] [facility], [employer]. Start: 10-06-2014 Gluc bld gluc mntr dev cleared fda spec home use [employer] Start: 09-29-2014 Comprehensive metabolic panel [facility] [employer] [employer] [facility], Inc[employer] Start: 2009 HPV TESTING HPV TESTING [facility] Start: 2009 Screening for malignant neoplasm of cervix [facility] Start: 01-02-2000 PAP TESTING PAP TESTING [facility] Start: 01-02-2000 Screening for malignant neoplasm of cervix Pap Smear [facility] Start: 1998 DTaP/Tdap/Td Vaccines (1 - Tdap) DTaP/Tdap/Td Vaccines (1 - Tdap) [facility] Start: 1998 Urine microalbumin profile DTAP,TDAP,TD (1 - Tdap) [facility] Start: 1997 HEPATITIS C SCREENING HEPATITIS C SCREENING [facility] Start: 1997 Hepatitis C screening Hepatitis C Screening [facility] Start: 1997 HIV SCREENING HIV SCREENING [facility] Start: 1991 Adult depression screening assessment DEPRESSION SCREENING [facility] Start: 1989 Diabetic foot examination Diabetes: Foot Exam [facility] Start: 1989 Glaucoma screening Diabetes: Retinopathy Screening [facility] Start: 1989 Preventive dental service Diabetes: Dental Exam [facility] Start: 1985 Pneumococcal Vaccine: Pediatrics (0 to 5 Years) and At-Risk Patients (6 to 64 Years) (1 - PCV) Pneumococcal Vaccine: Pediatrics (0 to 5 Years) and At-Risk Patients (6 to 64 Years) (1 - PCV) [facility] Start: 1985 Pneumococcal Vaccine: Pediatrics (0 to 5 Years) and At-Risk Patients (6 to 64 Years) (1 of 2 - PCV) Pneumococcal Vaccine: Pediatrics (0 to 5 Years) and At-Risk Patients (6 to 64 Years) (1 of 2 - PCV) [facility] Start: 01-02-1980 MMR Vaccines (1 of 1 - Standard series) MMR Vaccines (1 of 1 - Standard series) [facility] Start: 1979 COVID-19 VACCINE (#1) COVID-19 VACCINE (#1) [facility] Start: 1979 Hemoglobin A1c measurement Diabetes: Hemoglobin A1C [facility] Start: 1979 Hepatitis B Vaccines (1 of 3 - 3-dose series) Hepatitis B Vaccines (1 of 3 - 3-dose series) [facility] Start: 1979 HIV screening HIV Screening [facility] Start: 1979 Lipid panel Lipid Panel [facility] MONOCLONAL PROT 24 U R W/INTERP MONOCLONAL PROT 24 UR W/INTERP Lab Routine MGUS (monoclonal gammopathy of unknown significance) Ordered: 08/23/2021 [facility] Work Phone: Comment on above: Ordered: 08/23/2021 OUTSIDE PROCEDURE SCAN OUTSIDE P ROCEDURE SCAN Procedures Ordered: 01/02/2023 [facility] Comment on above: Ordered: 01/02/2023 OUTSIDE PROCEDURE SCAN OUTSIDE P ROCEDURE SCAN Procedures Ordered: 02/13/2023 [facility] Comment on above: Ordered: 02/13/2023 Patient Education [facility] Work Phone: Patient referral [facility] Work Phone: Polysomnography [facility] PROT ELEC UR 24HR W/ M SPIKE (P) PROT ELEC UR 24HR W/M SPIKE (P) Lab Routine MGUS (monoclonal gammopathy of unknown significance) Ordered: 08/23/2021 [facility] Work Phone: Comment on above: Ordered: 08/23/2021 PROT ELEC UR 24HR W/ M SPIKE AND INTERP PROT ELEC UR 24HR W/M SPIKE AND INTERP Lab Routine MGUS (monoclonal gammopathy of unknown significance) Ordered: 08/23/2021 [facility] Work Phone: Comment on above: Ordered: 08/23/2021 Protein [Mass/time] in 24 hour Urine PROTEIN 24 HR URINE Lab Routine MGUS (monoclonal gammopathy of unknown significance) Ordered: 08/23/2021 [facility] Work Phone: Comment on above: Ordered: 08/23/2021 End: 09-22-2022 Radiologic examination osseous survey compl XR BONE SURVEY ROUTINE Radiology Routine MGUS (monoclonal gammopathy of unknown significance) 1 Occurrences starting 08/23/2021 until 09/22/2022 [facility] Work Phone: Comment on above: 1 Occurrences starting 08/23/2021 until 09/22/2022 Tissue exam [facility] [employer] Work Phone: Comment on above: Release Upon Ordering for 1 Occurrences starting 12/18/2022 [facility] Immunizations Immunization Date Immunization Notes Care Provider Mirta mandelkatia 08-14-2008 tetanus toxoid, redu kathryn diphtheria toxoid, and acellular pertussis vaccine, adsorbed JESSICA HOARJUNTETTER DEPOT MANAGER-C Work Phone: [facility] [employer] [facility]. influenza virus vaccine, unspecified formulation JESSICA PAYTONTETTER DEPOT MANAGER-C Work Phone: [facility]. influenza virus vaccine, unspecified formulation JESSICA HOFFMANTTER DEPOT MANAGER-C Work Phone: [facility]. influenza virus vaccine, unspecified formulation JESSICA [employer]Go[employer]ULLEN DEPOT MANAGER-C Work Phone: [facility].; [facility] Payers Date Payer Category Payer Self-pay [id number] 2021 Medicaid [id number] 2021 Unknown [id number] 2014 Medicaid [place] [id number] 2014-Present [phone] [address] [place] [address] Medicaid [id number] 1979 Unknown [id number] [id number] 1979 Unknown [id number] [id number]1 1979 Unknown [id number] 2.840.1.306580.3.579.2.651 1979 Unknown [id number] 2..840.1.078177.3.579.2.651 Unknown [id number] 2.840.1.191294.3.579.2.462 Unknown [id number] 2.840.1.431905.3.579.2.462 Unknown [id number] 2.840.1.944935.3.579.2.462 Unknown [id number] 2.840.1.166349.3.579.2.462 Unknown [id number] 2.840.1.506445.3.579.2.462 Unknown [id number] 2.840.1.194814.3.579.2.462 Unknown [id number] 2.840.1.274522.3.579.2.462 Unknown [id number] 2.840.1.848595.3.579.2.462 Unknown [id number] 2.840.1.667989.3.579.2.462 Unknown [id number] 2.840.1.517367.3.579.2.462 Unknown [id number] .840.1.517252.3.579.2.462 Unknown [id number] 2.840.1.661929.3.579.2.462 Unknown [id number] 2.840.1.660853.3.579.2.462 Unknown [id number] 2.840.1.116654.3.579.2.462 Unknown [id number] 2.840.1.217101.3.579.2.462 Unknown [id number] 2.840.1.722524.3.579.2.462 Unknown [id number] 2.16.840.1.544201.3.579.2.462 Unknown [id number] [id number]2 Unknown Social History Date Type Detail Facility Start: 03-07-2016 End: 11-15-2022 Tobacco smoking status NHIS Never smoked tobacco [facility] Start: 03-07-2016 End: 11-15-2022 Tobacco use and exposure Smokeless tobacco non-user [facility] Start: 08-23-2021 End: 09-06-2021 Alcohol intake Current non-drinker of alcohol (finding) [facility] Start: 03-07-2016 Tobacco Comment No smoking in childhood home. [facility] Start: 1980 Sex Assigned At Not on file [facility] Start: 08-13-2021 End: 10-20-2022 Exposure to SARS-CoV-2 (event) Not sure [facility] Start: 11-23-2020 End: 08-30-2022 Tobacco smoking status NHIS Unknown if ever smoked [facility] Start: 1980 Sex Assigned At Female [facility] Start: 08-30-2022 End: 01-05-2023 Alcohol intake Ex-drinker (finding) [facility] Start: 11-15-2022 End: 01-05-2023 Gender identity Not on file [facility] Start: 11-15-2022 End: 01-05-2023 History of Social function [facility] No Alcohol Use. [facility] . [facility] Never smoker. [facility] NEGATED: Highlighted row [facility] Medical Equipment Procedure Code Equipment Code Equipment Origin al Text Equipment Identifier Dates [id number] Start: 03-08-2022 Goals Date Patient Goal Desired Activity /State Mental Status Date Assessment Result Facility 05-18-2022 Cognitive function Level Of Cons ciousness Awake;Alert;Appropriate;Follow s Commands [facility] Work Phone: 09-19-2022 Cognitive function Awake;Alert;A ppropriate;Follow s Commands [facility] Work Phone: Clinical Notes 08-23-2021 to 01-05-2023 Sheriat Small LPN - 01/05/2023 3:40 PM Chino Han MD - 01/05/2023 3:40 PM Yary Jimenez MA - 12/22/2022 10:20 AM Chino Han MD - 12/22/2022 10:20 AM Billychaady Instructions Note Date & Type Note Facility 01-05-2023 Note BARIATRIC CARE [facility]NAGEMENT PROGRAM PROGRESS NOTE FOLLOW UP Patient: Sahra Briceño Date of : 1980 Service Date: 01/05/2023 DE Visit number: 2 of 6 Pre Program Weight Metrics Date of Initial Consultation:@FLOWLAST(8961)@ Initial Weight: @FLOWLAST([id number])@ Initial BMI: @FLOWLAST([id number])@ [place] Body Weight: @FLOWLAST([id number])@ Excess Body Weight: @FLOWLAST([id number])@ Follow Up Weight Metrics Last Three Weights Including Today's Weight: Wt Readings from Last 3 Encounters: 01/05/23 (!) 307 lb (139 kg) 12/22/22 (!) 309 lb 12.8 oz (141 kg) 12/18/22 (!) 307 lb (139 kg) Today's BMI: BMI: 56.14 %EBWL: % EBWL: -1% Weight Chance Since Last Visit: Weight Change: -2.8 lbs Weight Change from Initial DE/SPR Weight: Total Weight Change: 1.2 lbs Patient has the following question(s): none Falls Risk Assessment Patient does nottake medications which affect BP or mental status Patient does not have newly prescribed or changed dosage of medications within past 30 days which affect BP or mental status Patient has not fallen in the past 2 months Patient does notdemonstrate unsteady gait Patient uses the following ambulatory assistive devices: none Patient states the presence of the following traits which increases risk of fall: none Patient is not on home O2 Completed by: Sherita Small LPN [facility] 01-05-2023 History of Presen t illness Narrative [facility] MANAGEMENT PROGRAM PROGRESS NOTE FOLLOW UP Patient: Sahra Briceño Date of : 1980 Service Date: 01/05/2023 DE Visit number: 2 of 6 Pre Program Weight Metrics Date of Initial Consultation:@FLOWLAST([id number])@ Initial Weight: @FLOWLAST([id number])@ Initial BMI: @FLOWLAST([id number])@ [place] Body Weight: @FLOWLAST([id number])@ Excess Body Weight: @FLOWLAST([id number])@ Follow Up Weight Metrics Last Three Weights Including Today's Weight: Wt Readings from Last 3 Encounters: 01/05/23 (!) 307 lb (139 kg) 12/22/22 (!) 309 lb 12.8 oz (141 kg) 12/18/22 (!) 307 lb (139 kg) Today's BMI: BMI: 56.14 %EBWL: % EBWL: -1% Weight Chance Since Last Visit: Weight Change: -2.8 lbs Weight Change from Initial DE/SPR Weight: Total Weight Change: 1.2 lbs Patient has the following question(s): none Falls Risk Assessment Patient does nottake medications which affect BP or mental status Patient does not have newly prescribed or changed dosage of medications within past 30 days which affect BP or mental status Patient has not fallen in the past 2 months Patient does notdemonstrate unsteady gait Patient uses the following ambulatory assistive devices: none Patient states the presence of the following traits which increases risk of fall: none Patient is not on home O2 Completed by: Sherita Small LPN HPI, PHYSICAL EXAM, AND PLAN Patient is here today for follow up of their physician supervised diet and exercise in preparation for weight loss surgery. Weight trend since last visit: lost 2 lb iver 1month stable This patient's excess weight is causing the following co-morbid conditions at this time DM Plan: Physical Examination: Blood pressure 133/84, pulse 76, height 5' 2 (1.575 m), weight (!) 307 lb (139 kg). General: This patient is alert and oriented X3 General: This patient is awake, alert, and oriented, and is in no apparent distress. Extremities: No cyanosis, clubbing or edema/ No calf tenderness/No restrictions of movement, is ambulatory without assistance. Neurological: Intact x 4 extremities, no focal deficits notes. Skin: No rashes or lesions noted. Assessment of Current Diet and Exercise Current Diet This patient s current diet is: 80% meal plan Her diet contains adequate amounts of protein, inadequate amounts of healthy fats, adequate amounts of green, leafy vegetables, and adequate amounts of fruits. Her comfort foods include: none Current Activity Unable to exercise due to pain Current Eating Behaviors This patients demonstrates the following behaviors as they relate to her eating: structured She eats approximately 5-6 times per day. Her last meal/snack was at 6 am/pm. Plan: DM: continue medical management, DE and plan for metabolic weight loss surgery. stable. continue medical management, Diet & Exercise, and plan for metabolic weight loss surgery. Advised patient that She must continue to adhere to regular monthly visits to meet the requirements of her insurance company. Additionally, She is to adopt eating plan recommendations and show weight loss trend to demonstrate readiness for the changes that will be required following surgery. Patient's weight pattern does demonstrates meal plan adoption and weight loss each month Physician Diet Recommendations provided in Patient Instructions Patient: [x] To return in one month for follow up. Comorbids managing [] Has completed insurance required monthly diet and exercise series [] Needs to continue monthly visits until surgery Current Meds Patient's Medications New Prescriptions No medications on file Previous Medications ALBUTEROL 108 (90 BASE) MCG/ACT INHALER inhale 2 puffs by mouth and INTO THE LUNGS every 6 hours if needed for wheezing BLOOD GLUCOSE MONITORING SUPPL (TRUE METRIX METER) W/DEVICE KIT use as directed to TEST BLOOD GLUCOSE FENOFIBRATE (TRICOR) 145 MG TABLET Take 145 mg by mouth daily. HYDROXYZINE HCL (ATARAX) 25 MG TABLET Take 25 mg by mouth. PANTOPRAZOLE (PROTONIX) 40 MG EC TABLET Take 40 mg by mouth daily. POTASSIUM CHLORIDE (KLOR-CON) 20 MEQ PACKET dissolve 1 packet in 4 ounce(s) OF WATER AND DRINK DAILY RA ALCOHOL SWABS 70 % PADS USE DIRECTED SERTRALINE (ZOLOFT) 100 MG TABLET Take 100 mg by mouth. SYMBICORT 160-4.5 MCG/ACT INHALER Inhale 2 puffs 2 times daily. TRAZODONE (DESYREL) 50 MG TABLET Take 50 mg by mouth Nightly. 1-2 tabs Modified Medications No medications on file Discontinued Medications No medications on file I spend a total of 20 minutes on the same day of the visit in discussing/counseling the patient regarding the diet and exercise in the preparation for weight loss surgery.Education on the meal plan and 7 rules of eating is provided. Meal prep is encouraged as a foundation of the meal plan. Food journal is encouraged as a feedback system before and after bariatric surgery. Counseling on no nicotine/alcohol before and after surgery. Exercise and its role in the preparation for weight loss surgery is explained. DM Is associated with obesity and weight loss is discussed as a treatment option for DM Full chart review was performed.Clinical documentation is updated and completed. documented in this encounter [facility] 12-22-2022 Note [facility] SURGICAL WEIGHT LOSS MANAGEMENT PROGRAM PROGRESS NOTE FOLLOW UP Patient: Sahra Briceño Date of : 1980 Service Date: 12/22/2022 DE Visit number: 2 of 6 Pre Program Weight Metrics Date of Initial Consultation:@FLOWLAST(8961)@ Initial Weight: @FLOWLAST([id number])@ Initial BMI: @FLOWLAST([id number])@ [place] Body Weight: @FLOWLAST([id number])@ Excess Body Weight: @FLOWLAST([id number])@ Follow Up Weight Metrics Last Three Weights Including Today's Weight: Wt Readings from Last 3 Encounters: 12/22/22 (!) 309 lb 12.8 oz (141 kg) 12/18/22 (!) 307 lb (139 kg) 11/23/22 (!) 305 lb 12.8 oz (139 kg) Today's BMI: BMI: 56.66 %EBWL: % EBWL: -2% Weight Chance Since Last Visit: Weight Change: 4 lbs Weight Change from Initial DE/SPR Weight: Total Weight Change: 4 lbs Patient has the following question(s): none Falls Risk Assessment Patient doestake medications which affect BP or mental status Patient does not have newly prescribed or changed dosage of medications within past 30 days which affect BP or mental status Patient has not fallen in the past 2 months Patient does notdemonstrate unsteady gait Patient uses the following ambulatory assistive devices: none Patient states the presence of the following traits which increases risk of fall: none Patient is not on home O2 Completed by: Jennie Jimenez MA [facility] 12-22-2022 History of Presen t illness Narrative [facility] WEIGHT LOSS MANAGEMENT PROGRAM PROGRESS NOTE FOLLOW UP Patient: Sahra Briceño Date of : 1980 Service Date: 12/22/2022 DE Visit number: 2 of 6 Pre Program Weight Metrics Date of Initial Consultation:@FLOWLAST([id number])@ Initial Weight: @FLOWLAST([id number])@ Initial BMI: @FLOWLAST([id number])@ [place] Body Weight: @FLOWLAST([id number])@ Excess Body Weight: @FLOWLAST([id number])@ Follow Up Weight Metrics Last Three Weights Including Today's Weight: Wt Readings from Last 3 Encounters: 12/22/22 (!) 309 lb 12.8 oz (141 kg) 12/18/22 (!) 307 lb (139 kg) 11/23/22 (!) 305 lb 12.8 oz (139 kg) Today's BMI: BMI: 56.66 %EBWL: % EBWL: -2% Weight Chance Since Last Visit: Weight Change: 4 lbs Weight Change from Initial DE/SPR Weight: Total Weight Change: 4 lbs Patient has the following question(s): none Falls Risk Assessment Patient doestake medications which affect BP or mental status Patient does not have newly prescribed or changed dosage of medications within past 30 days which affect BP or mental status Patient has not fallen in the past 2 months Patient does notdemonstrate unsteady gait Patient uses the following ambulatory assistive devices: none Patient states the presence of the following traits which increases risk of fall: none Patient is not on home O2 Completed by: Jennie Jimenez MA HPI, PHYSICAL EXAM, AND PLAN Patient is here today for follow up of their physician supervised diet and exercise in preparation for weight loss surgery. Weight trend since last visit: gain 4 lb iver 1month stable This patient's excess weight is causing the following co-morbid conditions at this time DM Plan: Physical Examination: BP 116/79 Pulse 78 Ht 5' 2 (1.575 m) Wt (!) 309 lb 12.8 oz (141 kg) BMI 56.66 kg/m General: This patient is alert and oriented X3 General: This patient is awake, alert, and oriented, and is in no apparent distress. Extremities: No cyanosis, clubbing or edema/ No calf tenderness/No restrictions of movement, is ambulatory without assistance. Neurological: Intact x 4 extremities, no focal deficits notes. Skin: No rashes or lesions noted. Assessment of Current Diet and Exercise Current Diet This patient s current diet is: 50-80% meal plan Her diet contains adequate amounts of protein, inadequate amounts of healthy fats, adequate amounts of green, leafy vegetables, and adequate amounts of fruits. Her comfort foods include: none Current Activity Unable to exercise due to pain Current Eating Behaviors This patients demonstrates the following behaviors as they relate to her eating: structured She eats approximately 5-6 times per day. Her last meal/snack was at 6 am/pm. Plan: DM: continue medical management, DE and plan for metabolic weight loss surgery. stable. continue medical management, Diet & Exercise, and plan for metabolic weight loss surgery. Advised patient that She must continue to adhere to regular monthly visits to meet the requirements of her insurance company. Additionally, She is to adopt eating plan recommendations and show weight loss trend to demonstrate readiness for the changes that will be required following surgery. Patient's weight pattern does demonstrates meal plan adoption and weight loss each month Physician Diet Recommendations provided in Patient Instructions Patient: [x] To return in one month for follow up. Comorbids managing [] Has completed insurance required monthly diet and exercise series [] Needs to continue monthly visits until surgery Current Meds Patient's Medications New Prescriptions No medications on file Previous Medications ALBUTEROL 108 (90 BASE) MCG/ACT INHALER inhale 2 puffs by mouth and INTO THE LUNGS every 6 hours if needed for wheezing BLOOD GLUCOSE MONITORING SUPPL (TRUE METRIX METER) W/DEVICE KIT use as directed to TEST BLOOD GLUCOSE FENOFIBRATE (TRICOR) 145 MG TABLET Take 145 mg by mouth daily. HYDROXYZINE HCL (ATARAX) 25 MG TABLET Take 25 mg by mouth. PANTOPRAZOLE (PROTONIX) 40 MG EC TABLET Take 40 mg by mouth daily. POTASSIUM CHLORIDE (KLOR-CON) 20 MEQ PACKET dissolve 1 packet in 4 ounce(s) OF WATER AND DRINK DAILY RA ALCOHOL SWABS 70 % PADS USE DIRECTED SERTRALINE (ZOLOFT) 100 MG TABLET Take 100 mg by mouth. SYMBICORT 160-4.5 MCG/ACT INHALER Inhale 2 puffs 2 times daily. TRAZODONE (DESYREL) 50 MG TABLET Take 50 mg by mouth Nightly. 1-2 tabs Modified Medications No medications on file Discontinued Medications No medications on file I spend a total of 20 minutes on the same day of the visit in discussing/counseling the patient regarding the diet and exercise in the preparation for weight loss surgery.Education on the meal plan and 7 rules of eating is provided. Meal prep is encouraged as a foundation of the meal plan. Food journal is encouraged as a feedback system before and after bariatric surgery. Counseling on no nicotine/alcohol before and after surgery. Exercise and its role in the preparation for weight loss surgery is explained. DM Is associated with obesity and weight loss is discussed as a treatment option for DM Full chart review was performed.Clinical documentation is updated and completed. documented in this encounter [facility] 12-18-2022 Note Patient: Sahra Alves Yo sterling Procedure Summary Date: 12/18/22 Room / Location: [facility] ENDO 8 / [facility] Gastroenterology Anesthesia Start: 737 Anesthesia Stop: 749 Procedure: EGD WITH BIOPSY Diagnosis: Gastro-esophageal reflux disease without esophagitis (Gastro-esophageal reflux disease without esophagitis [K21.9]) Providers: Jean Paul Bailey MD Responsible Provider: Morteza Coronado MD Anesthesia Type: MAC ASA Status: 3 Anesthesia Type: MAC Vitals Value Taken Time BP 125/73 12/18/22 0751 Temp 97.6 12/18/22 0754 Pulse 81 12/18/22 075 Resp 18 12/18/22 075 SpO2 97 % 12/18/22 075 Anesthesia Post Evaluation Patient location during evaluation: PACU Patient participation: complete - patient participated Level of consciousness: awake and alert Pain management: satisfactory to patient Airway patency: patent Dental Injury: no Cardiovascular status: acceptable, blood pressure returned to baseline and hemodynamically stable Respiratory status: acceptable and spontaneous ventilation Hydration status: euvolemic Nausea/Vomiting: controlled No notable events documented. Patient can be discharged once all PACU criteria has been met. [facility] 12-18-2022 Note Patient: Sahra katz Procedure Summary Date: 12/18/22 Room / Location: [facility] ENDO 8 / [facility] Gastroenterology Anesthesia Start: 737 Anesthesia Stop: 749 Procedure: EGD WITH BIOPSY Diagnosis: Gastro-esophageal reflux disease without esophagitis (Gastro-esophageal reflux disease without esophagitis [K21.9]) Providers: Jean Paul Bailey MD Responsible Provider: Morteza Coronado MD Anesthesia Type: MAC ASA Status: 3 Anesthesia Type: MAC Vitals Value Taken Time BP 125/73 12/18/22 0751 Temp 97.6 12/18/22 0753 Pulse 81 12/18/22750 Resp 18 12/18/22750 SpO2 97 % 12/18/22750 Anesthesia Post Evaluation Patient location during evaluation: PACU Patient participation: complete - patient participated Level of consciousness: awake and alert Pain management: satisfactory to patient Multimodal analgesia pain management approach Airway patency: patent Two or more strategies used to mitigate risk of obstructive sleep apnea Cardiovascular status: acceptable and hemodynamically stable Respiratory status: acceptable Hydration status: acceptable No notable events documented. MIPS #[id number] PONV Patient did not receive an inhalational anesthetic ([id number]) MIPS # [phone] Perioperative Temperature Management Anesthesia time was less than 60 minutes (4256F) MIPS #477 Multimodal Pain Management Not emergent case Patient was not administered multimodal pain management (G2149) Patient reports no pain in PACU (G2149) MIPS #404 Anesthesiology Smoking Abstinence The patient is not a current smoker (e.g. cigarette, cigar, pipe, e-cigarette/vaping/marijuana) If no stop here (G9644) I completed my handoff to the receiving clinician during which we: 1. Identified the patient 2. Identified the responsible provider 3. Reviewed the pertinent medical history 4. Discussed the surgical course 5. Reviewed intra-op anesthesia management and issues during anesthesia 6. Set expectations for post-procedure period 7. Allowed opportunity for questions and acknowledgement of understanding. [facility] 12-18-2022 Telephone encounter Note Pt had significant gastritis. Can we please start a PPI if she is not already on one for GERD. Thanks AD [employer] Work Phone: 12-18-2022 Miscellaneous Notes Pt had significant gastritis. Can we please start a PPI if she is not already on one for GERD. Thanks AD Orders mailed Addended by: CHERRIE DELEON on: 09/19/2022 12:29 PM Modules accepted: Orders Addended by: AIDA LEES on: 09/15/2022 07:11 AM Modules accepted: Orders Orders pended, PULM added D/T MARIAM eval, Pre op check list scanned to media, EGD order sent to ALS. PLAN Encounter Diagnoses Name Primary? GERD without esophagitis Type 2 diabetes mellitus without complication, without long-term current use of insulin ([facility] ([facility]) Morbid obesity with BMI of 50.0-59.9, adult ([facility]) I have recommended proceeding with the evaluation and work-up for the primary procedure as outlined below: PATIENT SUMMARY Sahra Bailey 42 y.o. female with Body mass index is 58.38 kg/m . 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 pylori [] Negative [] Positive UGI [x] [] not ordered US Abdomen [x] [] not ordered MARIAM eval [x] [] On CPAP / Obtain settings Hematology [] [] Hypercoagulation panel Toxicology [] [] Urine drug screen [] EtOH screen Addtional [] [] Hgb A1c INITIAL CONSULTATIONS CLEARANCE / MANAGEMENT Psychology [x] Dietitian [x] Cardiology [x] [] not ordered Pulmonary [] [x] not ordered Others [] []Heme/Onc []Psychiatry []Pain mgmt PSD [] Physician supervised diet: []None []3 mos [x]6 mos Preop diet [] Preop low calory diet: []None []1 wk [x]2 wks []Ext. FINAL PRE-OP TESTING RESULTS Labwork [x] [x]Pre-op CBC [x]BMP []Serum Nicotine / Cotinine EKG [x] CXR [x] POST-OP MEDICATIONS Ulcer Ppx [] Omeprazole 20 mg PO []QD []BID Gallstone Ppx [] Ursodiol 300 mg []BID DVT Ppx [] DVT prophylaxis per final preop visit estimated risk Estimated calculated risk: % Schedule final pre-operative office visit with surgeon, pre-operative education class, and pre-operative exercise class prior to date of surgery ATTESTATION I reviewed with the patient the details of the proposed operation. The risks benefits and options were discussed. Risks included but were not limited to bleeding, infection, damage to other surrounding organs, cardio-pulmonary complications related to anesthesia, conversion from laparoscopic to and open procedure, the need for reoperative or endoscopic therapy, the potential for prolonged mechanical ventilation, and . All questions were fully answered to the patient's satisfaction and they wish to proceed with surgical intervention. A total of over 45 minute visit was spent in face to face encounter, counseling the patient, discussing the surgical/perioperative plan, record review and documentation. The patient was seen and examined independently and relevant data including a full chart rreview was performed by myself. Initial New [facility] surgical patient Navigation & Financial Counseling Discussion Patient Communication: In office SURGEON: [] JZ [x] AD [] MP [] TB [] LM PROCEDURE: [] LRYGB [x] LSG [] JUANITA-S [] JUANITA [] UNDECIDED [] REV: SPECIFY: Confirmed pt wants to continue with surgical program/plan [x] YES [] NO (complete program withdrawal note/process) CO-MORBIDS: [] NONE [] DM []HTN [] MARIAM []GERD [] OTH: PRIVATE PAY: [] NO []YES DATE OF INITIAL BENEFITS VERIFICATION: TRANSFER FU: [] YES [] NO PRIMARY INSURANCE: Payor: [place] [employer] / Plan: [place] [employer] ODM / Product Type: Medicaid HMO / BENEFIT ON PLAN: [] NO [] YES BENEFIT MAX: [] NO [] YES -- BENEFIT MAX: $ EMPLOYER: DIET AND EXERCISE (DE) REQUIREMENT PRIMARY [] NONE []3M [] 6M []9M [] Medicare 4 Months [] SPR (3M) []OTHER: SECONDARY INSURANCE: BENEFIT ON PLAN: [] NO [] YES BENEFIT MAX: [] NO [] YES -- BENEFIT MAX: $ AUTH REQUIRED FROM SECONDARY [] NO [] YES DIET AND EXERCISE REQUIREMENT SECONDARY [] NONE []3M [] 6M [] Medicare 4 months [] SPR (3M) []OTHER: ___ [x] Discussed with patient: Financial cost overview (document signed and pt given copy at new pt consult visit with surgeon), Initial appointments: Bariatric Nutrition Assessment (BNA) & Diet and Exercise (DE) Patient to look for yellow envelope in mail. This yellow envelope will contain orders for labs, testing and required clearances. Pt encouraged to complete early in program to prevent delays. Encourage blood work to be draw by 1st DE appointment. [x] Reviewed OOP cost, including: [] Optifast cost of approximately $130-140/week x weeks immediately prior to surgery - used to induce rapid weight loss which results in decrease in size of liver and therefore facilitates laparoscopically surgery approach. [x] Overview of inpatient admission benefits - estimated inpatient co-pays, deductibles and/or co-insurance - Estimated OOP costs form reviewed with patient, and copy given to patient at new pt visit. [x] Reviewed next steps with patient: 1) Scheduled at new pt surgeon visit: General Utility Machine Operator (RD) for a Nutrition Assessment (BNA) and Pre-operative Diet and Exercise (DE) appointment #1. [x] Patient reminded to arrive 15 minutes early for check in. Late arrivals may need to be rescheduled. 2) Schedule: Diet and Exercise Apt #2 only scheduled after initial BNA and DE completed, 3) Behavioral Health apt scheduled after DE started. Reviewed rational and goal of Behavioral Health appointments. 4) [x] Reinforced need to cancel any WMI appointments 48 hours in advance. Cautioned NS/Same day cancellations may result in delay in program or program completion hold. Noted: DE series needs to be a monthly series or insurance company may require repeat of the entire series. 5) [x] Smoker/tobacco products including vaping: reviewed need for cessation before surgery clearance and life long abstinence after surgery for best outcomes. Patient navigation to surgery: [x] Explained to patient that average time from initial consult to date of surgery can be 6-8 months. - Process can take longer if there are cancelled appointments, delays in testing and/or additional clearances that needs to be completed. - Reviewed importance of patient active engagement in making and keeping appointments to keep the process moving. - Reinforced need to cancel appointments at least 48 hours in advance. Reviewed that instances of No Shows and Same Day Appointment Cancellations may result in program/surgery delay or hold. [x] Patient advised of importance of having voicemail and MyChart for office communications and lab/testing results before and after surgery. documented in this encounter [facility] 12-18-2022 Note Endoscopy Center- [facility] Patient Name: Sahra Briceño Procedure Date: 12/18/2022 7:37 AM Gender: Female Date of : 1980 Age: 42 Admit Type: Outpatient Note Status: Finalized Endoscopist: Jean Paul Bailey MD, [id number] Procedure: Upper GI endoscopy Indications: Gastro-esophageal reflux disease, Preoperative assessment for bariatric surgery to treat morbid obesity Findings: The esophagus was normal. The stomach was normal. The examined duodenum was normal. Segmental moderate inflammation characterized by erosions and erythema was found in the gastric antrum. This was biopsied with a cold forceps for Helicobacter pylori testing. Impression: - Normal esophagus. - Normal stomach. - Normal examined duodenum. - Chronic gastritis. Biopsied. Recommendation: - Patient has a contact number available for emergencies. The signs and symptoms of potential delayed complications were discussed with the patient. Return to normal activities tomorrow. Written discharge instructions were provided to the patient. - Return to Bariatric clinic (date not yet determined). Medicines: Monitored Anesthesia Care Procedure: Pre-Anesthesia Assessment: - Prior to the procedure, a History and Physical was performed, and patient medications and allergies were reviewed. The patient's tolerance of previous anesthesia was also reviewed. The risks and benefits of the procedure and the sedation options and risks were discussed with the patient. All questions were answered, and informed consent was obtained. Prior Anticoagulants: The patient has taken no anticoagulant or antiplatelet agents. ASA Grade Assessment: III - A patient with severe systemic disease. After reviewing the risks and benefits, the patient was deemed in satisfactory condition to undergo the procedure. After obtaining informed consent, the endoscope was passed under direct vision. Throughout the procedure, the patient's blood pressure, pulse, and oxygen saturations were monitored continuously. The Endoscope was introduced through the mouth, and advanced to the second part of duodenum. The upper GI endoscopy was accomplished with ease. The patient tolerated the procedure well. Complications: No immediate complications. Procedure Code(s): --- Professional --- 90045, Esophagogastroduodenoscopy, flexible, transoral; with biopsy, single or multiple --- Technical --- 16620, Esophagogastroduodenoscopy, flexible, transoral; with biopsy, single or multiple Diagnosis Code(s): --- Professional --- K29.50, Unspecified chronic gastritis without bleeding K21.9, Gastro-esophageal reflux disease without esophagitis Z01.818, Encounter for other preprocedural examination E66.01, Morbid (severe) obesity due to excess calories --- Technical --- K29.50, Unspecified chronic gastritis without bleeding K21.9, Gastro-esophageal reflux disease without esophagitis Z01.818, Encounter for other preprocedural examination E66.01, Morbid (severe) obesity due to excess calories CPT copyright 2021 [employer]. All rights reserved. The codes documented in this report are preliminary and upon ditto machine operator review may be revised to meet current compliance requirements. Attending Participation: I was present and participated during the entire procedure from insertion to removal of the endoscope. Jean Paul Bailey MD 12/18/2022 9:46:32 AM This report has been signed electronically. Number of Addenda: 0 Note Initiated On: 12/18/2022 7:37 AM [facility] 12-18-2022 Note JEAN PAUL BAILEY MD , F [facility], [facility] MINIMALLY INVASIVE & METABOLIC / BARIATRIC SURGERY [facility] HISTORY AND PHYSICAL 12/18/2022 PATIENT: Sahra Briceño DATE OF : 1980 HISTORY OF PRESENT ILLNESS: The patient is a 42 y.o. 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 Jean Paul Bailey. Thoroughly reviewed the patient's medical history, family history, social history and review of systems with the patient today in the office. Please see medical record for pertinent positives. Past Medical History: Past Medical History: Diagnosis Date Anxiety Asthma Back pain Depression RIVERO (dyspnea on exertion) GERD (gastroesophageal reflux disease) History of kidney stones Joint pain, knee Joint pain, knee MGUS (monoclonal gammopathy of unknown significance) Morbid obesity, unspecified obesity type (HCC) Snoring Type 2 diabetes mellitus (HCC) Past Surgical History: Past Surgical History: Procedure Laterality Date APPENDECTOMY SECTION, LOW TRANSVERSE x3 CHOLECYSTECTOMY HIP SURGERY HYSTERECTOMY tumor removal KNEE SURGERY x3 Current Medications: No current facility-administered medications for this encounter. Prior to Admission medications Medication Sig Start Date End Date Taking? Authorizing Provider albuterol 108 (90 Base) MCG/ACT inhaler inhale 2 puffs by mouth and INTO THE LUNGS every 6 hours if needed for wheezing 08/25/22 Yes Historical Provider, Blood Glucose Monitoring Suppl (True Metrix Meter) w/Device kit use as directed to TEST BLOOD GLUCOSE 03/14/22 Yes Historical Provider, fenofibrate (Tricor) 145 MG tablet Take 145 mg by mouth daily. 08/12/22 Yes Historical Provider, hydrOXYzine HCl (Atarax) 25 MG tablet Take 25 mg by mouth. 08/25/22 Yes Historical Provider, pantoprazole (ProtoNix) 40 MG EC tablet Take 40 mg by mouth daily. 08/25/22 Yes Historical Provider, potassium chloride (Klor-Con) 20 MEQ packet dissolve 1 packet in 4 ounce(s) OF WATER AND DRINK DAILY 08/25/22 Yes Historical Provider, RA Alcohol Swabs 70 % pads USE DIRECTED 03/08/22 Yes Historical Provider, sertraline (Zoloft) 100 MG tablet Take 100 mg by mouth. 06/12/22 Yes Historical Provider, Symbicort 160-4.5 MCG/ACT inhaler Inhale 2 puffs 2 times daily. 08/28/22 Yes Historical Provider, traZODone (Desyrel) 50 MG tablet Take 50 mg by mouth Nightly. 1-2 tabs Yes Historical Provider, Allergies: Azithromycin, Penicillins, Cephalexin, Ciprofloxacin, Lisinopril, Methylprednisolone, Nitrofurantoin, Oxycodone, Sulfamethoxazole, Sulfamethoxazole-trimethoprim, and Diphenhydramine Social History: Social History Socioeconomic History Marital status: Single Spouse name: Not on file Number of children: Not on file Years of education: Not on file Highest education level: Not on file Occupational History Not on file Tobacco Use Smoking status: Never Smokeless tobacco: Never Vaping Use Vaping Use: Never used Substance and Sexual Activity Alcohol use: Not Currently Drug use: Not Currently Sexual activity: Not Currently Other Topics Concern Not on file Social History Narrative Not on file Social Determinants of Health Financial Resource Strain: Not on file Food Insecurity: Not on file Transportation Needs: Not on file Physical Activity: Not on file Stress: Not on file Social Connections: Not on file Intimate Partner Violence: Not on file Housing Stability: Not on file Family History: @FAMHXNH@ REVIEW OF SYSTEMS: CONSTITUTIONAL: Negative for fatigue, and unexpected weight change RESPIRATORY: Negative for cough, SOB, and wheezing CARDIOVASCULAR: Negative for chest pains and palpatations GASTROINTESTINAL: reflux HEMATOLOGIC/LYMPHATIC: Negative for adenopathy. Does not bruise/bleed easily. NEUROLOGICAL: Negative for seizures and syncope * All other ROS reviewed see HPI for pertinent positives and negatives. PHYSICAL EXAM: VITALS: BP 116/75 Pulse 84 Temp 36.4 ?C (97.6 ?F) (Tympanic) Resp 20 Ht 1.575 m (5' 2) Wt (!) 139 kg (307 lb) SpO2 97% BMI 56.15 kg/m? GENERAL: Oriented to person, place, and time. Appears well nourished. No distress ENT: Normocepalic,atraumatic, without obvious abnormality NECK: supple, symmetrical, trachea midline LUNGS: Resp effort easy and unlabored, breath sounds normal CARDIOVASCULAR: RRR, No murmur ABDOMEN: Soft, non-tender, no open wounds. MUSCULOSKELETAL: Normal range of motion, ambulatory without assistance NEUROLOGIC: No focal neurologic deficits IMPRESSION/RECOMMENDATIONS: EGD with Biopsy Patient counseled on risks, benefits, and alternatives of treatmen (more content not included)... [facility] 12-18-2022 Note Patient: Sahra katz Procedure Information Date/Time: 12/18/22729 Procedure: EGD WITH BIOPSY Location: [facility] ENDO 8 / [facility] Gastroenterology Providers: Jean Paul Bailey MD Relevant Problems Endo (+) Type 2 diabetes mellitus without complication, without long-term current use of insulin ([facility] ([facility] GI (+) Gastroesophageal reflux disease Past Medical History: Past Medical History: No date: Anxiety No date: Asthma No date: Back pain No date: Depression No date: RIVERO (dyspnea on exertion) No date: GERD (gastroesophageal reflux disease) No date: History of kidney stones No date: Joint pain, knee No date: Joint pain, knee No date: MGUS (monoclonal gammopathy of unknown significance) No date: Morbid obesity, unspecified obesity type (HCC) No date: Snoring No date: Type 2 diabetes mellitus (HCC) Past Surgical History: Past Surgical History: No date: APPENDECTOMY No date: SECTION, LOW TRANSVERSE Comment: x3 No date: CHOLECYSTECTOMY No date: HIP SURGERY No date: HYSTERECTOMY Comment: tumor removal No date: KNEE SURGERY Comment: x3 Social History: TOBACCO: reports that she has never smoked. She has never used smokeless tobacco. ETOH: reports that she does not currently use alcohol. Social History Substance and Sexual Activity Drug Use Not Currently Family History: Family History Problem Relation Name Age of Onset ? Diabetes Mother ? Obesity Mother ? Hypertension Father ? Heart disease Father ? Cancer Sister ? Obesity Sister ? Obesity Maternal Grandfather Screening: Hysterectomy Clinical information reviewed: Tobacco Allergies Meds Med Hx Surg Hx OB Status Fam Hx Soc Hx Physical Exam Airway Mallampati: III TM distance: >3 FB Neck ROM: full Mouth Open: normalendotracheal tube not in place Cardiovascular Dental (+) Upper Dentures, Lower Dentures Pulmonary Abdominal Anesthesia Plan patient is NPO appropriate Any family history or previous problems with anesthesia no ASA 3 MAC Any family history or previous problems with anesthesia no The patient is not a current smoker. Anesthetic plan and risks discussed with patient. MARIAM Screening Labs: No results found for: WBC, HGB, HCT, MCV, PLT No results found for: NA, K, CL, CO2, BUN, CREATININE, GLUCOSE, CALCIUM, PROT, BILIRUBINFL, ALKPHOS, AST, ALT, EGFR, GLOB No echocardiogram results found for the past 14 days No results found for this or any previous visit. [facility] 12-18-2022 Hospital Discharg e instructions Sebastián Rodriguez RN - 12/18/2022 7:52 AM EST Upper GI Endoscopy: What to expect at home ACTIVITY: DO NOT DRIVE, OPERATE MACHINERY, OR DRINK ANY ALCOHOL TODAY. Avoid making critical decisions, signing legal documents, or performing any activity that requires alertness for the rest of the day. You may be bloated or have gas pains since air was introduced into the stomach for the procedure. You may need to pass the gas throughout the day. You may experience a mild sore throat. You may use an gkjt-gcw-syzfydt chloraseptic spray, gargle with warm salt water, or use throat lozenges. Notify your physician if this feeling lasts more than 48 hours. Rest the remainder of the day. You may resume normal activity tomorrow. You may return to work tomorrow. DIET: You may resume a normal diet unless notified or recommended by your physician. You may be eager to eat a large meal after fasting, but it is a good idea to start with light meals and ease into solid foods the first day. (*) If your stomach is upset, try clear liquids and bland, low-fat foods like plain toast or rice. Drink plenty of fluids for the first 24 hours (unless your physician states otherwise). MEDICATION: Resume your normal home medications unless notified or recommended by your physician. If you take blood thinners (such as Coumadin, Eliquis, Plavix, Aspirin, etc.) or anti-inflammatory medications (Advil, Motrin, Aleve, etc.), ask your physician when you may resume these medications. FOLLOW-UP APPOINTMENT: Follow up with or call your physician as needed. When to call for help: Call your doctor IMMEDIATELY or seek medical care if you experience: Severe pain or vomiting Coughing up more than a teaspoon of blood You pass a large amount of tar-like stools Your belly is swollen and firm with severe pain A fever greater than 101 degrees Redness or swelling of arm from the IV site for more than 48 hours Sudden onset of chest pain or shortness of breath If you become extremely dizzy or pass out (lose consciousness) IF YOU ARE UNABLE TO REACH YOUR PHYSICIAN GO TO NEAREST EMERGENCY DEPARTMENT documented in this encounter [facility] 12-18-2022 Note Formatting of this n ote might be different from the original. Endoscopy Center- [facility] Patient Name: Sahra Briceño Procedure Date: 12/18/2022 7:37 AM Gender: Female Date of : 1980 Age: 42 Admit Type: Outpatient Note Status: Finalized Endoscopist: Jean Paul Bailey MD, [id number] Procedure: Upper GI endoscopy Indications: Gastro-esophageal reflux disease, Preoperative assessment for bariatric surgery to treat morbid obesity Findings: The esophagus was normal. The stomach was normal. The examined duodenum was normal. Segmental moderate inflammation characterized by erosions and erythema was found in the gastric antrum. This was biopsied with a cold forceps for Helicobacter pylori testing. Impression: - Normal esophagus. - Normal stomach. - Normal examined duodenum. - Chronic gastritis. Biopsied. Recommendation: - Patient has a contact number available for emergencies. The signs and symptoms of potential delayed complications were discussed with the patient. Return to normal activities tomorrow. Written discharge instructions were provided to the patient. - Return to Bariatric clinic (date not yet determined). Medicines: Monitored Anesthesia Care Procedure: Pre-Anesthesia Assessment: - Prior to the procedure, a History and Physical was performed, and patient medications and allergies were reviewed. The patient's tolerance of previous anesthesia was also reviewed. The risks and benefits of the procedure and the sedation options and risks were discussed with the patient. All questions were answered, and informed consent was obtained. Prior Anticoagulants: The patient has taken no anticoagulant or antiplatelet agents. ASA Grade Assessment: III - A patient with severe systemic disease. After reviewing the risks and benefits, the patient was deemed in satisfactory condition to undergo the procedure. After obtaining informed consent, the endoscope was passed under direct vision. Throughout the procedure, the patient's blood pressure, pulse, and oxygen saturations were monitored continuously. The Endoscope was introduced through the mouth, and advanced to the second part of duodenum. The upper GI endoscopy was accomplished with ease. The patient tolerated the procedure well. Complications: No immediate complications. Procedure Code(s): --- Professional --- 49929, Esophagogastroduodenoscopy, flexible, transoral; with biopsy, single or multiple --- Technical --- 45997, Esophagogastroduodenoscopy, flexible, transoral; with biopsy, single or multiple Diagnosis Code(s): --- Professional --- K29.50, Unspecified chronic gastritis without bleeding K21.9, Gastro-esophageal reflux disease without esophagitis Z01.818, Encounter for other preprocedural examination E66.01, Morbid (severe) obesity due to excess calories --- Technical --- K29.50, Unspecified chronic gastritis without bleeding K21.9, Gastro-esophageal reflux disease without esophagitis Z01.818, Encounter for other preprocedural examination E66.01, Morbid (severe) obesity due to excess calories CPT copyright 2021 [employer]. All rights reserved. The codes documented in this report are preliminary and upon ditto machine operator review may be revised to meet current compliance requirements. Attending Participation: I was present and participated during the entire procedure from insertion to removal of the endoscope. Jean Paul Bailey MD 12/18/2022 9:46:32 AM This report has been signed electronically. Number of Addenda: 0 Note Initiated On: 12/18/2022 7:37 AM [facility] [employer] 12-18-2022 Note Formatting of this n ote might be different from the original. [facility] Sahra Brice[facility] Procedure Date: 12/18/2022 7:37 AM Gender: Female Date of : 1980 Age: 42 Admit Type: Outpatient Note Status: Finalized Endoscopist: Jean Paul Bailey MD, [id number] Procedure: Upper GI endoscopy Indications: Gastro-esophageal reflux disease, Preoperative assessment for bariatric surgery to treat morbid obesity Findings: The esophagus was normal. The stomach was normal. The examined duodenum was normal. Segmental moderate inflammation characterized by erosions and erythema was found in the gastric antrum. This was biopsied with a cold forceps for Helicobacter pylori testing. Impression: - Normal esophagus. - Normal stomach. - Normal examined duodenum. - Chronic gastritis. Biopsied. Recommendation: - Patient has a contact number available for emergencies. The signs and symptoms of potential delayed complications were discussed with the patient. Return to normal activities tomorrow. Written discharge instructions were provided to the patient. - Return to Bariatric clinic (date not yet determined). Medicines: Monitored Anesthesia Care Procedure: Pre-Anesthesia Assessment: - Prior to the procedure, a History and Physical was performed, and patient medications and allergies were reviewed. The patient's tolerance of previous anesthesia was also reviewed. The risks and benefits of the procedure and the sedation options and risks were discussed with the patient. All questions were answered, and informed consent was obtained. Prior Anticoagulants: The patient has taken no anticoagulant or antiplatelet agents. ASA Grade Assessment: III - A patient with severe systemic disease. After reviewing the risks and benefits, the patient was deemed in satisfactory condition to undergo the procedure. After obtaining informed consent, the endoscope was passed under direct vision. Throughout the procedure, the patient's blood pressure, pulse, and oxygen saturations were monitored continuously. The Endoscope was introduced through the mouth, and advanced to the second part of duodenum. The upper GI endoscopy was accomplished with ease. The patient tolerated the procedure well. Complications: No immediate complications. Procedure Code(s): --- Professional --- 70982, Esophagogastroduodenoscopy, flexible, transoral; with biopsy, single or multiple --- Technical --- 74015, Esophagogastroduodenoscopy, flexible, transoral; with biopsy, single or multiple Diagnosis Code(s): --- Professional --- K29.50, Unspecified chronic gastritis without bleeding K21.9, Gastro-esophageal reflux disease without esophagitis Z01.818, Encounter for other preprocedural examination E66.01, Morbid (severe) obesity due to excess calories --- Technical --- K29.50, Unspecified chronic gastritis without bleeding K21.9, Gastro-esophageal reflux disease without esophagitis Z01.818, Encounter for other preprocedural examination E66.01, Morbid (severe) obesity due to excess calories CPT copyright 2021 [employer]. All rights reserved. The codes documented in this report are preliminary and upon ditto machine operator review may be revised to meet current compliance requirements. Attending Participation: I was present and participated during the entire procedure from insertion to removal of the endoscope. Jean Paul Bailey MD 12/18/2022 9:46:32 AM This report has been signed electronically. Number of Addenda: 0 Note Initiated On: 12/18/2022 7:37 AM [facility] 12-18-2022 Miscellaneous Notes [facility] Name: Sahra Briceño Procedure Date: 12/18/2022 7:37 AM Gender: Female Date of : 1980 Age: 42 Admit Type: Outpatient Note Status: Finalized Endoscopist: Jean Paul Bailey MD, [id number] Procedure: Upper GI endoscopy Indications: Gastro-esophageal reflux disease, Preoperative assessment for bariatric surgery to treat morbid obesity Findings: The esophagus was normal. The stomach was normal. The examined duodenum was normal. Segmental moderate inflammation characterized by erosions and erythema was found in the gastric antrum. This was biopsied with a cold forceps for Helicobacter pylori testing. Impression: - Normal esophagus. - Normal stomach. - Normal examined duodenum. - Chronic gastritis. Biopsied. Recommendation: - Patient has a contact number available for emergencies. The signs and symptoms of potential delayed complications were discussed with the patient. Return to normal activities tomorrow. Written discharge instructions were provided to the patient. - Return to Bariatric clinic (date not yet determined). Medicines: Monitored Anesthesia Care Procedure: Pre-Anesthesia Assessment: - Prior to the procedure, a History and Physical was performed, and patient medications and allergies were reviewed. The patient's tolerance of previous anesthesia was also reviewed. The risks and benefits of the procedure and the sedation options and risks were discussed with the patient. All questions were answered, and informed consent was obtained. Prior Anticoagulants: The patient has taken no anticoagulant or antiplatelet agents. ASA Grade Assessment: III - A patient with severe systemic disease. After reviewing the risks and benefits, the patient was deemed in satisfactory condition to undergo the procedure. After obtaining informed consent, the endoscope was passed under direct vision. Throughout the procedure, the patient's blood pressure, pulse, and oxygen saturations were monitored continuously. The Endoscope was introduced through the mouth, and advanced to the second part of duodenum. The upper GI endoscopy was accomplished with ease. The patient tolerated the procedure well. Complications: No immediate complications. Procedure Code(s): --- Professional --- 48629, Esophagogastroduodenoscopy, flexible, transoral; with biopsy, single or multiple --- Technical --- 10060, Esophagogastroduodenoscopy, flexible, transoral; with biopsy, single or multiple Diagnosis Code(s): --- Professional --- K29.50, Unspecified chronic gastritis without bleeding K21.9, Gastro-esophageal reflux disease without esophagitis Z01.818, Encounter for other preprocedural examination E66.01, Morbid (severe) obesity due to excess calories --- Technical --- K29.50, Unspecified chronic gastritis without bleeding K21.9, Gastro-esophageal reflux disease without esophagitis Z01.818, Encounter for other preprocedural examination E66.01, Morbid (severe) obesity due to excess calories CPT copyright 2021 [employer]. All rights reserved. The codes documented in this report are preliminary and upon ditto machine operator review may be revised to meet current compliance requirements. Attending Participation: I was present and participated during the entire procedure from insertion to removal of the endoscope. Jean Paul Bailey MD 12/18/2022 9:46:32 AM This report has been signed electronically. Number of Addenda: 0 Note Initiated On: 12/18/2022 7:37 AM documented in this encounter [facility] 12-18-2022 History and physical note Images from the original note were not included. JEAN PAUL BAILEY MD , FACS, [facility] MINIMALLY INVASIVE & METABOLIC / BARIATRIC SURGERY [facility] HISTORY AND PHYSICAL 12/18/2022 PATIENT: Sahra Briceño DATE OF : 1980 HISTORY OF PRESENT ILLNESS: The patient is a 42 y.o. 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 Jean Paul Bailey. Thoroughly reviewed the patient's medical history, family history, social history and review of systems with the patient today in the office. Please see medical record for pertinent positives. Past Medical History: Past Medical History: Diagnosis Date Anxiety Asthma Back pain Depression RIVERO (dyspnea on exertion) GERD (gastroesophageal reflux disease) History of kidney stones Joint pain, knee Joint pain, knee MGUS (monoclonal gammopathy of unknown significance) Morbid obesity, unspecified obesity type (HCC) Snoring Type 2 diabetes mellitus (HCC) Past Surgical History: Past Surgical History: Procedure Laterality Date APPENDECTOMY SECTION, LOW TRANSVERSE x3 CHOLECYSTECTOMY HIP SURGERY HYSTERECTOMY tumor removal KNEE SURGERY x3 Current Medications: No current facility-administered medications for this encounter. Prior to Admission medications Medication Sig Start Date End Date Taking? Authorizing Provider albuterol 108 (90 Base) MCG/ACT inhaler inhale 2 puffs by mouth and INTO THE LUNGS every 6 hours if needed for wheezing 08/25/22 Yes Historical Provider, Blood Glucose Monitoring Suppl (True Metrix Meter) w/Device kit use as directed to TEST BLOOD GLUCOSE 03/14/22 Yes Historical Provider, fenofibrate (Tricor) 145 MG tablet Take 145 mg by mouth daily. 08/12/22 Yes Historical Provider, hydrOXYzine HCl (Atarax) 25 MG tablet Take 25 mg by mouth. 08/25/22 Yes Historical Provider, pantoprazole (ProtoNix) 40 MG EC tablet Take 40 mg by mouth daily. 08/25/22 Yes Historical Provider, potassium chloride (Klor-Con) 20 MEQ packet dissolve 1 packet in 4 ounce(s) OF WATER AND DRINK DAILY 08/25/22 Yes Historical Provider, RA Alcohol Swabs 70 % pads USE DIRECTED 03/08/22 Yes Historical Provider, sertraline (Zoloft) 100 MG tablet Take 100 mg by mouth. 06/12/22 Yes Historical Provider, Symbicort 160-4.5 MCG/ACT inhaler Inhale 2 puffs 2 times daily. 08/28/22 Yes Historical Provider, traZODone (Desyrel) 50 MG tablet Take 50 mg by mouth Nightly. 1-2 tabs Yes Historical Provider, Allergies: Azithromycin, Penicillins, Cephalexin, Ciprofloxacin, Lisinopril, Methylprednisolone, Nitrofurantoin, Oxycodone, Sulfamethoxazole, Sulfamethoxazole-trimethoprim, and Diphenhydramine Social History: Social History Socioeconomic History Marital status: Single Spouse name: Not on file Number of children: Not on file Years of education: Not on file Highest education level: Not on file Occupational History Not on file Tobacco Use Smoking status: Never Smokeless tobacco: Never Vaping Use Vaping Use: Never used Substance and Sexual Activity Alcohol use: Not Currently Drug use: Not Currently Sexual activity: Not Currently Other Topics Concern Not on file Social History Narrative Not on file Social Determinants of Health Financial Resource Strain: Not on file Food Insecurity: Not on file Transportation Needs: Not on file Physical Activity: Not on file Stress: Not on file Social Connections: Not on file Intimate Partner Violence: Not on file Housing Stability: Not on file Family History: @FAMHXNH@ REVIEW OF SYSTEMS: CONSTITUTIONAL: Negative for fatigue, and unexpected weight change RESPIRATORY: Negative for cough, SOB, and wheezing CARDIOVASCULAR: Negative for chest pains and palpatations GASTROINTESTINAL: reflux HEMATOLOGIC/LYMPHATIC: Negative for adenopathy. Does not bruise/bleed easily. NEUROLOGICAL: Negative for seizures and syncope * All other ROS reviewed see HPI for pertinent positives and negatives. PHYSICAL EXAM: VITALS: BP 116/75 Pulse 84 Temp 36.4 C (97.6 F) (Tympanic) Resp 20 Ht 1.575 m (5' 2) Wt (!) 139 kg (307 lb) SpO2 97% BMI 56.15 kg/m GENERAL: Oriented to person, place, and time. Appears well nourished. No distress ENT: Normocepalic,atraumatic, without obvious abnormality NECK: supple, symmetrical, trachea midline LUNGS: Resp effort easy and unlabored, breath sounds normal CARDIOVASCULAR: RRR, No murmur ABDOMEN: Soft, non-tender, no open wounds. MUSCULOSKELETAL: Normal range of motion, ambulatory without assistance NEUROLOGIC: No focal neurologic deficits IMPRESSION/RECOMMENDATIONS: EGD with Biopsy Patient counseled on risks, benefits, and alternatives of treatment plan at length. Patient states an understanding and willingness to proceed with plan. [facility] [employer] Work Phone: 12-18-2022 History and physical note Images from the original note were not included. JEAN PAUL BAILEY MD , FACS, [facility] MINIMALLY INVASIVE & METABOLIC / BARIATRIC SURGERY [facility] HISTORY AND PHYSICAL 12/18/2022 PATIENT: Sahra Briceño DATE OF : 1980 HISTORY OF PRESENT ILLNESS: The patient is a 42 y.o. 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 Jean Paul Bailey. Thoroughly reviewed the patient's medical history, family history, social history and review of systems with the patient today in the office. Please see medical record for pertinent positives. Past Medical History: Past Medical History: Diagnosis Date Anxiety Asthma Back pain Depression RIVERO (dyspnea on exertion) GERD (gastroesophageal reflux disease) History of kidney stones Joint pain, knee Joint pain, knee MGUS (monoclonal gammopathy of unknown significance) Morbid obesity, unspecified obesity type (HCC) Snoring Type 2 diabetes mellitus (HCC) Past Surgical History: Past Surgical History: Procedure Laterality Date APPENDECTOMY SECTION, LOW TRANSVERSE x3 CHOLECYSTECTOMY HIP SURGERY HYSTERECTOMY tumor removal KNEE SURGERY x3 Current Medications: No current facility-administered medications for this encounter. Prior to Admission medications Medication Sig Start Date End Date Taking? Authorizing Provider albuterol 108 (90 Base) MCG/ACT inhaler inhale 2 puffs by mouth and INTO THE LUNGS every 6 hours if needed for wheezing 08/25/22 Yes Historical Provider, Blood Glucose Monitoring Suppl (True Metrix Meter) w/Device kit use as directed to TEST BLOOD GLUCOSE 03/14/22 Yes Historical Provider, fenofibrate (Tricor) 145 MG tablet Take 145 mg by mouth daily. 08/12/22 Yes Historical Provider, hydrOXYzine HCl (Atarax) 25 MG tablet Take 25 mg by mouth. 08/25/22 Yes Historical Provider, pantoprazole (ProtoNix) 40 MG EC tablet Take 40 mg by mouth daily. 08/25/22 Yes Historical Provider, potassium chloride (Klor-Con) 20 MEQ packet dissolve 1 packet in 4 ounce(s) OF WATER AND DRINK DAILY 08/25/22 Yes Historical Provider, MD BERG Alcohol Swabs 70 % pads USE DIRECTED 03/08/22 Yes Historical Provider, sertraline (Zoloft) 100 MG tablet Take 100 mg by mouth. 06/12/22 Yes Historical Provider, Symbicort 160-4.5 MCG/ACT inhaler Inhale 2 puffs 2 times daily. 08/28/22 Yes Historical Provider, traZODone (Desyrel) 50 MG tablet Take 50 mg by mouth Nightly. 1-2 tabs Yes Historical Provider, Allergies: Azithromycin, Penicillins, Cephalexin, Ciprofloxacin, Lisinopril, Methylprednisolone, Nitrofurantoin, Oxycodone, Sulfamethoxazole, Sulfamethoxazole-trimethoprim, and Diphenhydramine Social History: Social History Socioeconomic History Marital status: Single Spouse name: Not on file Number of children: Not on file Years of education: Not on file Highest education level: Not on file Occupational History Not on file Tobacco Use Smoking status: Never Smokeless tobacco: Never Vaping Use Vaping Use: Never used Substance and Sexual Activity Alcohol use: Not Currently Drug use: Not Currently Sexual activity: Not Currently Other Topics Concern Not on file Social History Narrative Not on file Social Determinants of Health Financial Resource Strain: Not on file Food Insecurity: Not on file Transportation Needs: Not on file Physical Activity: Not on file Stress: Not on file Social Connections: Not on file Intimate Partner Violence: Not on file Housing Stability: Not on file Family History: @FAMHXNH@ REVIEW OF SYSTEMS: CONSTITUTIONAL: Negative for fatigue, and unexpected weight change RESPIRATORY: Negative for cough, SOB, and wheezing CARDIOVASCULAR: Negative for chest pains and palpatations GASTROINTESTINAL: reflux HEMATOLOGIC/LYMPHATIC: Negative for adenopathy. Does not bruise/bleed easily. NEUROLOGICAL: Negative for seizures and syncope * All other ROS reviewed see HPI for pertinent positives and negatives. PHYSICAL EXAM: VITALS: BP 116/75 Pulse 84 Temp 36.4 C (97.6 F) (Tympanic) Resp 20 Ht 1.575 m (5' 2) Wt (!) 139 kg (307 lb) SpO2 97% BMI 56.15 kg/m GENERAL: Oriented to person, place, and time. Appears well nourished. No distress ENT: Normocepalic,atraumatic, without obvious abnormality NECK: supple, symmetrical, trachea midline LUNGS: Resp effort easy and unlabored, breath sounds normal CARDIOVASCULAR: RRR, No murmur ABDOMEN: Soft, non-tender, no open wounds. MUSCULOSKELETAL: Normal range of motion, ambulatory without assistance NEUROLOGIC: No focal neurologic deficits IMPRESSION/RECOMMENDATIONS: EGD with Biopsy Patient counseled on risks, benefits, and alternatives of treatment plan at length. Patient states an understanding and willingness to proceed with plan. documented in this encounter [facility] 11-23-2022 History of Presen t illness Narrative [facility] SURGICAL WEIGHT LOSS MANAGEMENT PROGRAM SUPERVISED DIET AND EXERCISE ROOMING: INITIAL VISIT Patient: Sahra Briceño Date of : 1980 Service Date: 11/23/2022 Patient is here today to initiate physician-supervised diet and exercise as required by their insurance company prior to approval for weight loss surgery. This patient is alone for the evaluation today This is visit 1 of 6 required visits. Weight Metrics: (From Surgical Wet Loss Management) Today's Vital Signs: Non-Surgical Initial Eval Consult Date: 11/23/22 Initial Height: 5' 2 (157.5 cm) Initial Weight: 305 lb 12.8 oz (139 kg) [place] Body Weight: 125 lb (56.7 kg) Initial BMI: 55.93 Initial Body Fat %: 67.12 EBW: 180 lb (From NonSurgical Weight Loss Tracker) Falls Risk Assessment Patient does not take medications which affect BP or mental status Patient does not have newly prescribed or changed dosage of medications within past 30 days which affect BP or mental status Patient has not fallen in the past 2 months Patient uses the following ambulatory assistive devices: none Patient states the presence of the following traits which increases risk of fall: none Patient is noton home O2 Completed by: Sherita Small LPN [facility] SURGICAL WEIGHT LOSS MANAGEMENT PROGRAM PHYSICIAN SUPERVISED DIET AND EXERCISE SURGICAL PREPARATORY REGIMEN PROGRESS NOTE INITIAL EVALUATION Patient: Sahra Briceño Service Date: 11/23/22 Date of : 1980 Navigation Plan: Patient History/Assessment Summary: The patient is a pleasant 42 y.o. year old female, who stands Height: 5' 2 (157.5 cm) tall with a weight of Weight: (!) 305 lb 12.8 oz (139 kg) pounds, resulting in a BMI of Body mass index is 55.93 kg/m . kg/m2. She has been overweight for 10+ years, has tried and failed multiple previous diet attempts, and is now in the process of undergoing evaluation for surgical treatment of their obese. She is here today to initiate monthly physician supervised diet and exercise as part of their surgical preparatory regimen. History: Past Medical History: Diagnosis Date Anxiety Asthma Back pain Depression RIVERO (dyspnea on exertion) GERD (gastroesophageal reflux disease) History of kidney stones Joint pain, knee Joint pain, knee MGUS (monoclonal gammopathy of unknown significance) Morbid obesity, unspecified obesity type (HCC) Snoring Type 2 diabetes mellitus (HCC) Past Surgical History: Procedure Laterality Date APPENDECTOMY SECTION, LOW TRANSVERSE x3 CHOLECYSTECTOMY HIP SURGERY HYSTERECTOMY tumor removal KNEE SURGERY x3 Family History Problem Relation Name Age of Onset Diabetes Mother Obesity Mother Hypertension Father Heart disease Father Cancer Sister Obesity Sister Obesity Maternal Grandfather Social History Tobacco Use Smoking status: Never Smokeless tobacco: Never Substance Use Topics Alcohol use: Not Currently This patient's excess weight is causing the following co-morbid conditions at this time:DM Initial Diet & Exercise/SPR Visit Weight Metrics: Date of Initial Diet & Exercise Visit: Consult Date: 11/23/22 Initial Weight: Initial Weight: 305 lb 12.8 oz (139 kg) Initial BMI: Initial BMI: 55.93 [place] Body Weight: [place] Body Weight: 125 lb (56.7 kg) Excess Body Weight: EBW: 180 lb General: This patient is alert and oriented X3 Physical Examination: BP 111/72 Pulse 77 Ht 5' 2 (1.575 m) Wt (!) 305 lb 12.8 oz (139 kg) BMI 55.93 kg/m General: This patient is obese, and is in no apparent distress. Psychological: Patient is awake, alert and oriented to person, place and time Patient's mood is normal affect Current Diet This patient s current diet is: 80% meal plan Reviewed PAST DIET HISTORY FORM and CURRENT DIET HISTORY FORM with patient (located in [facility]) Her diet contains adequate amounts of protein, adequate amounts of healthy fats, adequate amounts of green, leafy vegetables, and adequate amounts of fruits. Her comfort foods include:sweets and savory Current Activity This patient currently does exercise for 20 per session, 3 times per week, including the following: walking. Current Eating Behaviors This patients demonstrates the following behaviors as they relate to her eating: structured She eats approximately 5-6 times per day. Her last meal/snack was at 6 PM. Plan: Diagnosis Managing: DM: continue medical management, DE and plan for metabolic weight loss surgery. stable. continue medical management, Diet & Exercise, and plan for metabolic weight loss surgery. Advised patient that She must adhere to regular monthly visits to meet the requirements of her insurance company. Additionally, She must lose approximately one pound per month to demonstrate readiness for the changes that will be required following surgery. Physician Diet Recommendations provided to patient Patient to return for follow up in one month Current Meds Patient's Medications New Prescriptions No medications on file Previous Medications ALBUTEROL 108 (90 BASE) MCG/ACT INHALER inhale 2 puffs by mouth and INTO THE LUNGS every 6 hours if needed for wheezing BLOOD GLUCOSE MONITORING SUPPL (TRUE METRIX METER) W/DEVICE KIT use as directed to TEST BLOOD GLUCOSE FENOFIBRATE (TRICOR) 145 MG TABLET Take 145 mg by mouth daily. HYDROXYZINE HCL (ATARAX) 25 MG TABLET Take 25 mg by mouth. PANTOPRAZOLE (PROTONIX) 40 MG EC TABLET Take 40 mg by mouth daily. POTASSIUM CHLORIDE (KLOR-CON) 20 MEQ PACKET dissolve 1 packet in 4 ounce(s) OF WATER AND DRINK DAILY RA ALCOHOL SWABS 70 % PADS USE DIRECTED SERTRALINE (ZOLOFT) 100 MG TABLET Take 100 mg by mouth. SYMBICORT 160-4.5 MCG/ACT INHALER Inhale 2 puffs 2 times daily. TRAZODONE (DESYREL) 50 MG TABLET Take 50 mg by mouth Nightly. 1-2 tabs Modified Medications No medications on file Discontinued Medications No medications on file I spent a total of 45 minutes on the day of the visit in counseling, discussing lifestyle changes that are pertinent to a successful life after bariatric surgery; and reviewing the chart including available communication from the surgeon. 1.Education on meal plan,meal structure, meal preps, shopping list 2. Discussion on elements of behavioral strategies such self-monitoring, controlling and modifying the stimuli that activate eating;slowing down the eating process;goal-setting on the process,behavioral nilesh and reinforcement,cognitive restructuring, problem-solving,assertiveness training. 3. Physical activity - build fitness to aerobic physical activity 150-300 min/wk and strength training 2-3 times per wk 4.Recommendation on do not use nicotine and alcohol before and after surgery is provided 5. For women of childbearing age recommendation to postpone until 12-18 month after surgery is provided 6.DM Is associated with obesity and weight loss is discussed as a treatment option for DM 7. Healthy lifestyle habits and their role in success after bariatric surgery discussed The patient was seen and a full chart review was performed.Clinical documentation is updated and completed. documented in this encounter [facility] 11-15-2022 History of Presen t illness Narrative Images from the original note were not included. [facility] PULMONARY MEDICINE [address] [facility] [id number] Dept: [phone] Dept Loc: [phone] Visit type: new Reason for Visit: New Patient (WLS Sx CLEARANCE/SLEEP EVAL) Assessment and Plan Morbid Obesity -Planning for weight loss surgery and will benefit. Asthma -Fairly stable on ICS/LABA but still uses rescue about once a day. -Consider step up to ICS/LABA/LAMA for better control. -Check PFTs Severe MARIAM -On CPAP. Unsure of settings as this was ordered by [place] provider. -Encouraged nightly compliance. Dyspnea -Exertional mostly but does have what she describes chest pain vs chest tightness with exertion which could be related to uncontrolled asthma. -Plan for asthma as above. She sees cardiology at [place]-no records available Follow up- 6 weeks after PFTs. Needs surgical clearance. Subjective History of Present Illness Sahra Briceño is 42 y.o. female with obesity, MGUS, severe MARIAM and DM. She is here for preoperative pulmonary and sleep evaluation prior to weight loss surgery. She is planning for JUANITA-S with Dr Bailey for weight reduction. PMHx includes asthma, obesity, MARIAM on PAP, MGUS Surgical Hx includes Hysterectomy, knee surgery x 3 (right), madelaine, appy No history of [place], blood clots or anemia. No difficult intubations. She reports exertional dyspnea which resolves with rest. Dyspnea and chest pain limit her activities. She saw cardiology in [place] but I do not have these records. She was recently started on CPAP for severe MARIAM but unsure of pressures. She has no oxygen. She is on ICS/LABA (Symbicort 180) and albuterol for asthma. Symptoms occur with exposures to candles, perfumes and environmental allergens such as ragweed. She uses albuterol about once a day. No PFTs ever. She denies any wheezing, cough or chest tightness today. Review of Systems Constitutional: Positive for fatigue. Negative for activity change. HENT: Negative for congestion and postnasal drip. Respiratory: Positive for exertional shortness of breath. Negative for cough, choking, chest tightness and wheezing. Cardiovascular: Negative for chest pain and leg swelling. Gastrointestinal: Negative for abdominal distention and abdominal pain. Musculoskeletal: Positive for arthralgias. Negative for gait problem and myalgias. Psychiatric/Behavioral: Negative for behavioral problems. The patient is not nervous/anxious. All other systems reviewed and are negative Allergies Allergen Reactions Azithromycin Penicillins Rash Childhood reaction. Cephalexin Other reaction(s): Other Ciprofloxacin Other reaction(s): Other Lisinopril Other reaction(s): Other Methylprednisolone Other reaction(s): Other Nitrofurantoin Other reaction(s): Other Oxycodone Other reaction(s): Other: See Comments Headache, dizziness Sulfamethoxazole Other reaction(s): Other Sulfamethoxazole-Trimethoprim Diphenhydramine Rash and Swelling Outpatient Medications Prior to Visit Medication Sig Dispense Refill albuterol 108 (90 Base) MCG/ACT inhaler inhale 2 puffs by mouth and INTO THE LUNGS every 6 hours if needed for wheezing Blood Glucose Monitoring Suppl (True Metrix Meter) w/Device kit use as directed to TEST BLOOD GLUCOSE fenofibrate (Tricor) 145 MG tablet Take 145 mg by mouth daily. hydrOXYzine HCl (Atarax) 25 MG tablet Take 25 mg by mouth. pantoprazole (ProtoNix) 40 MG EC tablet Take 40 mg by mouth daily. potassium chloride (Klor-Con) 20 MEQ packet dissolve 1 packet in 4 ounce(s) OF WATER AND DRINK DAILY RA Alcohol Swabs 70 % pads USE DIRECTED sertraline (Zoloft) 100 MG tablet Take 100 mg by mouth. Symbicort 160-4.5 MCG/ACT inhaler Inhale 2 puffs 2 times daily. traZODone (Desyrel) 50 MG tablet Take 50 mg by mouth Nightly. 1-2 tabs No facility-administered medications prior to visit. Past Medical History: Diagnosis Date Anxiety Asthma Back pain Depression RIVERO (dyspnea on exertion) GERD (gastroesophageal reflux disease) History of kidney stones Joint pain, knee Joint pain, knee MGUS (monoclonal gammopathy of unknown significance) Morbid obesity, unspecified obesity type (HCC) Snoring Type 2 diabetes mellitus (HCC) Social History Tobacco Use Smoking status: Never Smokeless tobacco: Never Substance Use Topics Alcohol use: Not Currently Past Surgical History: Procedure Laterality Date APPENDECTOMY SECTION, LOW TRANSVERSE x3 CHOLECYSTECTOMY HIP SURGERY HYSTERECTOMY tumor removal KNEE SURGERY x3 Family History Problem Relation Name Age of Onset Diabetes Mother Obesity Mother Hypertension Father Heart disease Father Cancer Sister Obesity Sister Obesity Maternal Grandfather Objective BP 130/77 Pulse 79 Temp 36.6 C (97.8 F) (Temporal) Ht 5' 2 (1.575 m) Wt (!) 309 lb 12.8 oz (141 kg) SpO2 93% BMI 56.66 kg/m Physical Exam Vitals reviewed. Constitutional: General: No acute distress. Appearance: + obese, not ill-appearing. HENT: Head: Normocephalic and atraumatic. Nose: Nose normal. Cardiovascular: Rate and Rhythm: Normal rate and regular rhythm. Pulmonary: Effort: Pulmonary effort is normal. No respiratory distress. Breath sounds: Diminished breath sounds, No wheezing, rhonchi or rales. Musculoskeletal: Right lower leg: No edema. Left lower leg: No edema. Skin: General: Skin is warm and dry. Capillary Refill: Capillary refill takes less than 2 seconds. Neurological: Mental Status: Alert and oriented to person, place, and time. Psychiatric: Mood and Affect: Mood normal. Data Reviewed and Summarized Imaging/Testing/Labs: I reviewed all pertinent testing. On this date, 11/15/22 I have spent 40 minutes reviewing previous notes, test results and face to face with the patient discussing the diagnosis and importance of compliance with the treatment plan as well as documenting on the day of the visit. JESS Gibbs CNP documented in this encounter [facility] 11-15-2022 Instructions Norma Encarnacion - 11/15/2022 10:50 AM EDT YOUR APPOINTMENT TODAY WAS WITH THE [facility], COPD CLINIC, PULMONARY AND SLEEP MEDICINE OFFICE. PLEASE CALL OUR OFFICE AT [phone] for our [place] office location or [phone] for our [place] location, IF YOU HAVE NOT RECEIVED YOUR TEST RESULTS 7 DAYS AFTER TESTING IS COMPLETED. PLEASE REMEMBER TO REQUEST REFILLS AT YOUR OFFICE VISITS. PHONE/FAX REQUESTS REQUIRE 48-72 HOURS FOR RESPONSE. A FRIENDLY REMINDER COPAYS ARE DUE AT TIME OF SERVICE. THANK YOU. Our Patients Are Important! We want to improve and you can help. After your visit we want you to feel: Listened to, Respected and have your health care explained. You may receive a survey asking you about your visit. Please complete the survey. We will use your feedback to make improvements. COVID-19 VACCINATION INFORMATION: PH. [phone] [email or web address] [facility] Central Scheduling [phone] [facility] Sleep Scheduling [phone] documented in this encounter [facility] 10-20-2022 History of Presen t illness Narrative [facility] BARIATRIC NUTRITION ASSESSMENT SURGICAL WEIGHT LOSS MANAGEMENT PROGRAM Date: 10/20/22 Patient Name: Sahra Briceño Date of : 1980 Type of Assessment: [x] Surgical Patient - Pre-op Initial Assessment Weight Metrics: Today's Height: 5'2 Today's Weight: 314 lb Today's BMI: 57.43 Surgeon: Dr. Bailey Surgical Procedure: [x] JUANITA -S Preop Diet: 2 wks Medical History: Past Medical History: Diagnosis Date Anxiety Asthma Back pain Depression RIVERO (dyspnea on exertion) GERD (gastroesophageal reflux disease) History of kidney stones Joint pain, knee Joint pain, knee MGUS (monoclonal gammopathy of unknown significance) Morbid obesity, unspecified obesity type (HCC) Snoring Type 2 diabetes mellitus (HCC) Current Medications: has a current medication list which includes the following prescription(s): albuterol, true metrix meter, fenofibrate, hydroxyzine hcl, pantoprazole, potassium chloride, ra alcohol swabs, sertraline, symbicort, and trazodone. Weight History Patient has been considering weight loss surgery for a while - referred by family doctor Primary reason(s) for weight loss better manage heart health (noted her father from CHF), increase mobility PREVIOUS WEIGHT LOSS ATTEMPTS Method When Amount lost Amount regained Most successful Keto Diet pills Exercise Watching portions Post Weight Loss Surgery- Type: Patient's current diet quality, relative to the Past weight loss surgery diet is: [x] Good [] Fair [] Poor CURRENT MEAL PLANNING Self Meals planned by x Food shopping done by x Meals cooked by x CURRENT EATING BEHAVIORS: Patient reports she currently eats 2-3 meals per day and snacks between meals. She states depending on her work schedule and what she's doing, can skip lunch. States she loves drinking water, but will also have pop and alcohol on occasion, as well as drinks coffee every morning. Patient was agreeable to working on meal frequency, increasing protein in diet, and eliminating caffeinated, carbonated beverages. 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 Family knowledgeable about/supportive of plans for weight loss surgery: Yes B. Patient understands that they must have someone in their home 28/08 for the first week following surgery, or that they must be able to stay with someone for the first week Yes C. Co-workers knowledgeable about/supportive of plans for weight loss surgery: Yes KNOWLEDGE AND EDUCATION ASSESSMENT AND PLAN Patient's level of knowledge regarding the changes that will have to be made in their diet following weight loss surgery is: [x] Excellent - patient is well informed. Areas of concern include: Frequency of meals/snacks, lack of protein with meals/snacks, beverage intake Current eating practices that will require change with surgery: Increase frequency of meals/snacks, increase protein with meals/snacks, decrease sugar-sweetened beverages, caffeine, carbonation RECOMMENDATIONS AND PLAN [x] Educational Materials Provided [x]Strategies for Eating handout given to and discussed with patient [x] Patient cleared for weight loss surgery Patient able to state major diet changes that need to be made following surgery Patient states/demonstrates readiness to make necessary diet changes [x] Other: Patient to continue to work on these goals: Goals: Have a consistent breakfast, lunch and dinner to work on meal frequency and prevent going too long between meals without eating Have protein with each meal and snack to help meet protein requirements and better manage appetite Eliminate sugar-sweetened/caffeinated/carbo nated beverages to promote hydration and continue to increase water Diagnoses: GERD Bariatric Nutrition Assessment completed by: Aleisha Sandoval MS, RDN, LD documented in this encounter [facility] 09-20-2022 Telephone encounter Note Orders mailed [facility] 09-20-2022 Miscellaneous Notes Orders mailed Addended by: CHERRIE DELEON on: 09/19/2022 12:29 PM Modules accepted: Orders Addended by: AIDA LEES on: 09/15/2022 07:11 AM Modules accepted: Orders Orders pended, PULM added D/T MARIAM eval, Pre op check list scanned to media, EGD order sent to ALS. PLAN Encounter Diagnoses Name Primary? GERD without esophagitis Type 2 diabetes mellitus without complication, without long-term current use of insulin (CMS/HCC) (HCC) Morbid obesity with BMI of 50.0-59.9, adult ([facility]) I have recommended proceeding with the evaluation and work-up for the primary procedure as outlined below: PATIENT SUMMARY Sahra Bailey 42 y.o. female with Body mass index is 58.38 kg/m . 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 pylori [] Negative [] Positive UGI [x] [] not ordered US Abdomen [x] [] not ordered MARIAM eval [x] [] On CPAP / Obtain settings Hematology [] [] Hypercoagulation panel Toxicology [] [] Urine drug screen [] EtOH screen Addtional [] [] Hgb A1c INITIAL CONSULTATIONS CLEARANCE / MANAGEMENT Psychology [x] Dr. Ramirez [x] Cardiology [x] [] not ordered Pulmonary [] [x] not ordered Others [] []Heme/Onc []Psychiatry []Pain mgmt PSD [] Physician supervised diet: []None []3 mos [x]6 mos Preop diet [] Preop low calory diet: []None []1 wk [x]2 wks []Ext. FINAL PRE-OP TESTING RESULTS Labwork [x] [x]Pre-op CBC [x]BMP []Serum Nicotine / Cotinine EKG [x] CXR [x] POST-OP MEDICATIONS Ulcer Ppx [] Omeprazole 20 mg PO []QD []BID Gallstone Ppx [] Ursodiol 300 mg []BID DVT Ppx [] DVT prophylaxis per final preop visit estimated risk Estimated calculated risk: % Schedule final pre-operative office visit with surgeon, pre-operative education class, and pre-operative exercise class prior to date of surgery ATTESTATION I reviewed with the patient the details of the proposed operation. The risks benefits and options were discussed. Risks included but were not limited to bleeding, infection, damage to other surrounding organs, cardio-pulmonary complications related to anesthesia, conversion from laparoscopic to and open procedure, the need for reoperative or endoscopic therapy, the potential for prolonged mechanical ventilation, and . All questions were fully answered to the patient's satisfaction and they wish to proceed with surgical intervention. A total of over 45 minute visit was spent in face to face encounter, counseling the patient, discussing the surgical/perioperative plan, record review and documentation. The patient was seen and examined independently and relevant data including a full chart rreview was performed by myself. Initial New [facility] surgical patient Navigation & Financial Counseling Discussion Patient Communication: In office SURGEON: [] JZ [x] AD [] MP [] TB [] LM PROCEDURE: [] LRYGB [x] LSG [] JUANITA-S [] JUANITA [] UNDECIDED [] REV: SPECIFY: Confirmed pt wants to continue with surgical program/plan [x] YES [] NO (complete program withdrawal note/process) CO-MORBIDS: [] NONE [] DM []HTN [] MARIAM []GERD [] OTH: PRIVATE PAY: [] NO []YES DATE OF INITIAL BENEFITS VERIFICATION: TRANSFER FU: [] YES [] NO PRIMARY INSURANCE: Pay[place]: [place] / Plan: [place]DM / Product Type: Medicaid HMO / BENEFIT ON PLAN: [] NO [] YES BENEFIT MAX: [] NO [] YES -- BENEFIT MAX: $ EMPLOYER: DIET AND EXERCISE (DE) REQUIREMENT PRIMARY [] NONE []3M [] 6M []9M [] Medicare 4 Months [] SPR (3M) []OTHER: SECONDARY INSURANCE: BENEFIT ON PLAN: [] NO [] YES BENEFIT MAX: [] NO [] YES -- BENEFIT MAX: $ AUTH REQUIRED FROM SECONDARY [] NO [] YES DIET AND EXERCISE REQUIREMENT SECONDARY [] NONE []3M [] 6M [] Medicare 4 months [] SPR (3M) []OTHER: ___ [x] Discussed with patient: Financial cost overview (document signed and pt given copy at new pt consult visit with surgeon), Initial appointments: Bariatric Nutrition Assessment (BNA) & Diet and Exercise (DE) Patient to look for yellow envelope in mail. This yellow envelope will contain orders for labs, testing and required clearances. Pt encouraged to complete early in program to prevent delays. Encourage blood work to be draw by 1st DE appointment. [x] Reviewed OOP cost, including: [] Optifast cost of approximately $130-140/week x weeks immediately prior to surgery - used to induce rapid weight loss which results in decrease in size of liver and therefore facilitates laparoscopically surgery approach. [x] Overview of inpatient admission benefits - estimated inpatient co-pays, deductibles and/or co-insurance - Estimated OOP costs form reviewed with patient, and copy given to patient at new pt visit. [x] Reviewed next steps with patient: 1) Scheduled at new pt surgeon visit: General Utility Machine Operator (RD) for a Nutrition Assessment (BNA) and Pre-operative Diet and Exercise (DE) appointment #1. [x] Patient reminded to arrive 15 minutes early for check in. Late arrivals may need to be rescheduled. 2) Schedule: Diet and Exercise Apt #2 only scheduled after initial BNA and DE completed, 3) Behavioral Health apt scheduled after DE started. Reviewed rational and goal of Behavioral Health appointments. 4) [x] Reinforced need to cancel any [facility] appointments 48 hours in advance. Cautioned NS/Same day cancellations may result in delay in program or program completion hold. Noted: DE series needs to be a monthly series or insurance company may require repeat of the entire series. 5) [x] Smoker/tobacco products including vaping: reviewed need for cessation before surgery clearance and life long abstinence after surgery for best outcomes. Patient navigation to surgery: [x] Explained to patient that average time from initial consult to date of surgery can be 6-8 months. - Process can take longer if there are cancelled appointments, delays in testing and/or additional clearances that needs to be completed. - Reviewed importance of patient active engagement in making and keeping appointments to keep the process moving. - Reinforced need to cancel appointments at least 48 hours in advance. Reviewed that instances of No Shows and Same Day Appointment Cancellations may result in program/surgery delay or hold. [x] Patient advised of importance of having voicemail and MyChart for office communications and lab/testing results before and after surgery. documented in this encounter [facility] 09-19-2022 Note Addended by: CHERRIE DELEON on: 09/19/2022 12:29 PM Modules accepted: Orders [facility] 09-19-2022 Note Addended by: CHERRIE DELEON on: 09/19/2022 12:29 PM Modules accepted: Orders [facility] 09-19-2022 Note Addended by: CHERRIE DELEON on: 09/19/2022 12:29 PM Modules accepted: Orders [facility] 09-19-2022 Note Addended by: CHERRIE DELEON on: 09/19/2022 12:29 PM Modules accepted: Orders [facility] 09-19-2022 Miscellaneous Notes Addended by: CHERRIE DELEON on: 09/19/2022 12:29 PM Modules accepted: Orders Addended by: AIDA LEES on: 09/15/2022 07:11 AM Modules accepted: Orders Orders pended, PULM added D/T MARIAM eval, Pre op check list scanned to media, EGD order sent to ALS. PLAN Encounter Diagnoses Name Primary? GERD without esophagitis Type 2 diabetes mellitus without complication, without long-term current use of insulin ([facility]/HCC) (HCC) Morbid obesity with BMI of 50.0-59.9, adult ([facility]) I have recommended proceeding with the evaluation and work-up for the primary procedure as outlined below: PATIENT SUMMARY Sahra Bailey 42 y.o. female with Body mass index is 58.38 kg/m . 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 pylori [] Negative [] Positive UGI [x] [] not ordered US Abdomen [x] [] not ordered MARIAM eval [x] [] On CPAP / Obtain settings Hematology [] [] Hypercoagulation panel Toxicology [] [] Urine drug screen [] EtOH screen Addtional [] [] Hgb A1c INITIAL CONSULTATIONS CLEARANCE / MANAGEMENT Psychology [x] Dietitian [x] Cardiology [x] [] not ordered Pulmonary [] [x] not ordered Others [] []Heme/Onc []Psychiatry []Pain mgmt PSD [] Physician supervised diet: []None []3 mos [x]6 mos Preop diet [] Preop low calory diet: []None []1 wk [x]2 wks []Ext. FINAL PRE-OP TESTING RESULTS Labwork [x] [x]Pre-op CBC [x]BMP []Serum Nicotine / Cotinine EKG [x] CXR [x] POST-OP MEDICATIONS Ulcer Ppx [] Omeprazole 20 mg PO []QD []BID Gallstone Ppx [] Ursodiol 300 mg []BID DVT Ppx [] DVT prophylaxis per final preop visit estimated risk Estimated calculated risk: % Schedule final pre-operative office visit with surgeon, pre-operative education class, and pre-operative exercise class prior to date of surgery ATTESTATION I reviewed with the patient the details of the proposed operation. The risks benefits and options were discussed. Risks included but were not limited to bleeding, infection, damage to other surrounding organs, cardio-pulmonary complications related to anesthesia, conversion from laparoscopic to and open procedure, the need for reoperative or endoscopic therapy, the potential for prolonged mechanical ventilation, and . All questions were fully answered to the patient's satisfaction and they wish to proceed with surgical intervention. A total of over 45 minute visit was spent in face to face encounter, counseling the patient, discussing the surgical/perioperative plan, record review and documentation. The patient was seen and examined independently and relevant data including a full chart rreview was performed by myself. Initial New [facility] surgical patient Navigation & Financial Counseling Discussion Patient Communication: In office SURGEON: [] DRAKE [x] AD [] MP [] TB [] LM PROCEDURE: [] LRYGB [x] LSG [] JUANITA-S [] JUANITA [] UNDECIDED [] REV: SPECIFY: Confirmed pt wants to continue with surgical program/plan [x] YES [] NO (complete program withdrawal note/process) CO-MORBIDS: [] NONE [] DM []HTN [] MARIAM []GERD [] OTH: PRIVATE PAY: [] NO []YES DATE OF INITIAL BENEFITS VERIFICATION: TRANSFER FU: [] YES [] NO PRIMARY INSURANCE: Pay[place]: [place] / Plan: [place] [employer] ODM / Product Type: Medicaid HMO / BENEFIT ON PLAN: [] NO [] YES BENEFIT MAX: [] NO [] YES -- BENEFIT MAX: $ EMPLOYER: DIET AND EXERCISE (DE) REQUIREMENT PRIMARY [] NONE []3M [] 6M []9M [] Medicare 4 Months [] SPR (3M) []OTHER: SECONDARY INSURANCE: BENEFIT ON PLAN: [] NO [] YES BENEFIT MAX: [] NO [] YES -- BENEFIT MAX: $ AUTH REQUIRED FROM SECONDARY [] NO [] YES DIET AND EXERCISE REQUIREMENT SECONDARY [] NONE []3M [] 6M [] Medicare 4 months [] SPR (3M) []OTHER: ___ [x] Discussed with patient: Financial cost overview (document signed and pt given copy at new pt consult visit with surgeon), Initial appointments: Bariatric Nutrition Assessment (BNA) & Diet and Exercise (DE) Patient to look for yellow envelope in mail. This yellow envelope will contain orders for labs, testing and required clearances. Pt encouraged to complete early in program to prevent delays. Encourage blood work to be draw by 1st DE appointment. [x] Reviewed OOP cost, including: [] Optifast cost of approximately $130-140/week x weeks immediately prior to surgery - used to induce rapid weight loss which results in decrease in size of liver and therefore facilitates laparoscopically surgery approach. [x] Overview of inpatient admission benefits - estimated inpatient co-pays, deductibles and/or co-insurance - Estimated OOP costs form reviewed with patient, and copy given to patient at new pt visit. [x] Reviewed next steps with patient: 1) Scheduled at new pt surgeon visit: General Utility Machine Operator (RD) for a Nutrition Assessment (BNA) and Pre-operative Diet and Exercise (DE) appointment #1. [x] Patient reminded to arrive 15 minutes early for check in. Late arrivals may need to be rescheduled. 2) Schedule: Diet and Exercise Apt #2 only scheduled after initial BNA and DE completed, 3) Behavioral Health apt scheduled after DE started. Reviewed rational and goal of Behavioral Health appointments. 4) [x] Reinforced need to cancel any [facility] appointments 48 hours in advance. Cautioned NS/Same day cancellations may result in delay in program or program completion hold. Noted: DE series needs to be a monthly series or insurance company may require repeat of the entire series. 5) [x] Smoker/tobacco products including vaping: reviewed need for cessation before surgery clearance and life long abstinence after surgery for best outcomes. Patient navigation to surgery: [x] Explained to patient that average time from initial consult to date of surgery can be 6-8 months. - Process can take longer if there are cancelled appointments, delays in testing and/or additional clearances that needs to be completed. - Reviewed importance of patient active engagement in making and keeping appointments to keep the process moving. - Reinforced need to cancel appointments at least 48 hours in advance. Reviewed that instances of No Shows and Same Day Appointment Cancellations may result in program/surgery delay or hold. [x] Patient advised of importance of having voicemail and MyChart for office communications and lab/testing results before and after surgery. documented in this encounter [facility] 09-15-2022 Note Addended by: Volodymyr LEES on: 09/15/2022 07:11 AM Modules accepted: Orders [facility] 09-15-2022 Note Addended by: Volodymyr LEES on: 09/15/2022 07:11 AM Modules accepted: Orders [facility] 09-15-2022 Note Addended by: Volodymyr LEES on: 09/15/2022 07:11 AM Modules accepted: Orders [facility] 09-15-2022 Note Addended by: Volodymyr LEES on: 09/15/2022 07:11 AM Modules accepted: Orders [facility] 09-15-2022 Note Addended by: Volodymyr LEES on: 09/15/2022 07:11 AM Modules accepted: Orders [facility] 09-15-2022 Miscellaneous Notes Addended by: AIDA LEES on: 09/15/2022 07:11 AM Modules accepted: Orders Orders pended, PULM added D/T MARIAM eval, Pre op check list scanned to [employer], EGD order sent to ALS. PLAN Encounter Diagnoses Name Primary? GERD without esophagitis Type 2 diabetes mellitus without complication, without long-term current use of insulin ([facility]) ([facility]) Morbid obesity with BMI of 50.0-59.9, adult ([facility]) I have recommended proceeding with the evaluation and work-up for the primary procedure as outlined below: PATIENT SUMMARY Sahra Bailey 42 y.o. female with Body mass index is 58.38 kg/m . 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 pylori [] Negative [] Positive UGI [x] [] not ordered US Abdomen [x] [] not ordered MARIAM eval [x] [] On CPAP / Obtain settings Hematology [] [] Hypercoagulation panel Toxicology [] [] Urine drug screen [] EtOH screen Addtional [] [] Hgb A1c INITIAL CONSULTATIONS CLEARANCE / MANAGEMENT Psychology [x] Dr. Ramirez [x] Cardiology [x] [] not ordered Pulmonary [] [x] not ordered Others [] []Heme/Onc []Psychiatry []Pain mgmt PSD [] Physician supervised diet: []None []3 mos [x]6 mos Preop diet [] Preop low calory diet: []None []1 wk [x]2 wks []Ext. FINAL PRE-OP TESTING RESULTS Labwork [x] [x]Pre-op CBC [x]BMP []Serum Nicotine / Cotinine EKG [x] CXR [x] POST-OP MEDICATIONS Ulcer Ppx [] Omeprazole 20 mg PO []QD []BID Gallstone Ppx [] Ursodiol 300 mg []BID DVT Ppx [] DVT prophylaxis per final preop visit estimated risk Estimated calculated risk: % Schedule final pre-operative office visit with surgeon, pre-operative education class, and pre-operative exercise class prior to date of surgery ATTESTATION I reviewed with the patient the details of the proposed operation. The risks benefits and options were discussed. Risks included but were not limited to bleeding, infection, damage to other surrounding organs, cardio-pulmonary complications related to anesthesia, conversion from laparoscopic to and open procedure, the need for reoperative or endoscopic therapy, the potential for prolonged mechanical ventilation, and . All questions were fully answered to the patient's satisfaction and they wish to proceed with surgical intervention. A total of over 45 minute visit was spent in face to face encounter, counseling the patient, discussing the surgical/perioperative plan, record review and documentation. The patient was seen and examined independently and relevant data including a full chart rreview was performed by myself. Initial New [facility] surgical patient Navigation & Financial Counseling Discussion Patient Communication: In office SURGEON: [] JZ [x] AD [] MP [] TB [] LM PROCEDURE: [] LRYGB [x] LSG [] JUANITA-S [] JUANITA [] UNDECIDED [] REV: SPECIFY: Confirmed pt wants to continue with surgical program/plan [x] YES [] NO (complete program withdrawal note/process) CO-MORBIDS: [] NONE [] DM []HTN [] MARIAM []GERD [] OTH: PRIVATE PAY: [] NO []YES DATE OF INITIAL BENEFITS VERIFICATION: TRANSFER FU: [] YES [] NO PRIMARY INSURANCE: Pay[place]: [place] [employer] / Plan: [place] [employer] ODM / Product Type: Medicaid HMO / BENEFIT ON PLAN: [] NO [] YES BENEFIT MAX: [] NO [] YES -- BENEFIT MAX: $ EMPLOYER: DIET AND EXERCISE (DE) REQUIREMENT PRIMARY [] NONE []3M [] 6M []9M [] Medicare 4 Months [] SPR (3M) []OTHER: SECONDARY INSURANCE: BENEFIT ON PLAN: [] NO [] YES BENEFIT MAX: [] NO [] YES -- BENEFIT MAX: $ AUTH REQUIRED FROM SECONDARY [] NO [] YES DIET AND EXERCISE REQUIREMENT SECONDARY [] NONE []3M [] 6M [] Medicare 4 months [] SPR (3M) []OTHER: ___ [x] Discussed with patient: Financial cost overview (document signed and pt given copy at new pt consult visit with surgeon), Initial appointments: Bariatric Nutrition Assessment (BNA) & Diet and Exercise (DE) Patient to look for yellow envelope in mail. This yellow envelope will contain orders for labs, testing and required clearances. Pt encouraged to complete early in program to prevent delays. Encourage blood work to be draw by 1st DE appointment. [x] Reviewed OOP cost, including: [] Optifast cost of approximately $130-140/week x weeks immediately prior to surgery - used to induce rapid weight loss which results in decrease in size of liver and therefore facilitates laparoscopically surgery approach. [x] Overview of inpatient admission benefits - estimated inpatient co-pays, deductibles and/or co-insurance - Estimated OOP costs form reviewed with patient, and copy given to patient at new pt visit. [x] Reviewed next steps with patient: 1) Scheduled at new pt surgeon visit: General Utility Machine Operator (RD) for a Nutrition Assessment (BNA) and Pre-operative Diet and Exercise (DE) appointment #1. [x] Patient reminded to arrive 15 minutes early for check in. Late arrivals may need to be rescheduled. 2) Schedule: Diet and Exercise Apt #2 only scheduled after initial BNA and DE completed, 3) Behavioral Health apt scheduled after DE started. Reviewed rational and goal of Behavioral Health appointments. 4) [x] Reinforced need to cancel any [facility] appointments 48 hours in advance. Cautioned NS/Same day cancellations may result in delay in program or program completion hold. Noted: DE series needs to be a monthly series or insurance company may require repeat of the entire series. 5) [x] Smoker/tobacco products including vaping: reviewed need for cessation before surgery clearance and life long abstinence after surgery for best outcomes. Patient navigation to surgery: [x] Explained to patient that average time from initial consult to date of surgery can be 6-8 months. - Process can take longer if there are cancelled appointments, delays in testing and/or additional clearances that needs to be completed. - Reviewed importance of patient active engagement in making and keeping appointments to keep the process moving. - Reinforced need to cancel appointments at least 48 hours in advance. Reviewed that instances of No Shows and Same Day Appointment Cancellations may result in program/surgery delay or hold. [x] Patient advised of importance of having voicemail and MyChart for office communications and lab/testing results before and after surgery. documented in this encounter [facility] [employer] 09-15-2022 Telephone encounter Note Orders pended, PULM added D/T MARIAM eval, Pre op check list scanned to media, EGD order sent to ALS. [facility] 09-15-2022 Telephone encounter Note PLAN Encounter Diagnoses Name Primary? GERD without esophagitis Type 2 diabetes mellitus without complication, without long-term current use of insulin (CMS/HCC) (HCC) Morbid obesity with BMI of 50.0-59.9, adult ([facility]) I have recommended proceeding with the evaluation and work-up for the primary procedure as outlined below: PATIENT SUMMARY Sahra Bailey 42 y.o. female with Body mass index is 58.38 kg/m . 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 pylori [] Negative [] Positive UGI [x] [] not ordered US Abdomen [x] [] not ordered MARIAM eval [x] [] On CPAP / Obtain settings Hematology [] [] Hypercoagulation panel Toxicology [] [] Urine drug screen [] EtOH screen Addtional [] [] Hgb A1c INITIAL CONSULTATIONS CLEARANCE / MANAGEMENT Psychology [x] Dietitioscar [x] Cardiology [x] [] not ordered Pulmonary [] [x] not ordered Others [] []Heme/Onc []Psychiatry []Pain mgmt PSD [] Physician supervised diet: []None []3 mos [x]6 mos Preop diet [] Preop low calory diet: []None []1 wk [x]2 wks []Ext. FINAL PRE-OP TESTING RESULTS Labwork [x] [x]Pre-op CBC [x]BMP []Serum Nicotine / Cotinine EKG [x] CXR [x] POST-OP MEDICATIONS Ulcer Ppx [] Omeprazole 20 mg PO []QD []BID Gallstone Ppx [] Ursodiol 300 mg []BID DVT Ppx [] DVT prophylaxis per final preop visit estimated risk Estimated calculated risk: % Schedule final pre-operative office visit with surgeon, pre-operative education class, and pre-operative exercise class prior to date of surgery ATTESTATION I reviewed with the patient the details of the proposed operation. The risks benefits and options were discussed. Risks included but were not limited to bleeding, infection, damage to other surrounding organs, cardio-pulmonary complications related to anesthesia, conversion from laparoscopic to and open procedure, the need for reoperative or endoscopic therapy, the potential for prolonged mechanical ventilation, and . All questions were fully answered to the patient's satisfaction and they wish to proceed with surgical intervention. A total of over 45 minute visit was spent in face to face encounter, counseling the patient, discussing the surgical/perioperative plan, record review and documentation. The patient was seen and examined independently and relevant data including a full chart rreview was performed by myself. [facility] 08-30-2022 Note Initial New [facility] surg ical patient Navigation & Financial Counseling Discussion Patient Communication: In office SURGEON: [] JZ [x] AD [] MP [] TB [] LM PROCEDURE: [] LRYGB [x] LSG [] JUANITA-S [] JUANITA [] UNDECIDED [] REV: SPECIFY: Confirmed pt wants to continue with surgical program/plan [x] YES [] NO (complete program withdrawal note/process) CO-MORBIDS: [] NONE [] DM []HTN [] MARIAM []GERD [] OTH: PRIVATE PAY: [] NO []YES DATE OF INITIAL BENEFITS VERIFICATION: TRANSFER FU: [] YES [] NO PRIMARY INSURANCE: Pay[place]: [place] [employer] / Plan: [place] [employer] [place]DM / Product Type: Medicaid HMO / BENEFIT ON PLAN: [] NO [] YES BENEFIT MAX: [] NO [] YES -- BENEFIT MAX: $ EMPLOYER: DIET AND EXERCISE (DE) REQUIREMENT PRIMARY [] NONE []3M [] 6M []9M [] Medicare 4 Months [] SPR (3M) []OTHER: SECONDARY INSURANCE: BENEFIT ON PLAN: [] NO [] YES BENEFIT MAX: [] NO [] YES -- BENEFIT MAX: $ AUTH REQUIRED FROM SECONDARY [] NO [] YES DIET AND EXERCISE REQUIREMENT SECONDARY [] NONE []3M [] 6M [] Medicare 4 months [] SPR (3M) []OTHER: ___ [x] Discussed with patient: Financial cost overview (document signed and pt given copy at new pt consult visit with surgeon), Initial appointments: Bariatric Nutrition Assessment (BNA) & Diet and Exercise (DE) Patient to look for yellow envelope in mail. This yellow envelope will contain orders for labs, testing and required clearances. Pt encouraged to complete early in program to prevent delays. Encourage blood work to be draw by 1st DE appointment. [x] Reviewed OOP cost, including: [] Optifast cost of approximately $130-140/week x weeks immediately prior to surgery - used to induce rapid weight loss which results in decrease in size of liver and therefore facilitates laparoscopically surgery approach. [x] Overview of inpatient admission benefits - estimated inpatient co-pays, deductibles and/or co-insurance - Estimated OOP costs form reviewed with patient, and copy given to patient at new pt visit. [x] Reviewed next steps with patient: 1) Scheduled at new pt surgeon visit: General Utility Machine Operator (RD) for a Nutrition Assessment (BNA) and Pre-operative Diet and Exercise (DE) appointment #1. [x] Patient reminded to arrive 15 minutes early for check in. Late arrivals may need to be rescheduled. 2) Schedule: Diet and Exercise Apt #2 only scheduled after initial BNA and DE completed, 3) Behavioral Health apt scheduled after DE started. Reviewed rational and goal of Behavioral Health appointments. 4) [x] Reinforced need to cancel any WMI appointments 48 hours in advance. Cautioned NS/Same day cancellations may result in delay in program or program completion hold. Noted: DE series needs to be a monthly series or insurance company may require repeat of the entire series. 5) [x] Smoker/tobacco products including vaping: reviewed need for cessation before surgery clearance and life long abstinence after surgery for best outcomes. Patient navigation to surgery: [x] Explained to patient that average time from initial consult to date of surgery can be 6-8 months. - Process can take longer if there are cancelled appointments, delays in testing and/or additional clearances that needs to be completed. - Reviewed importance of patient active engagement in making and keeping appointments to keep the process moving. - Reinforced need to cancel appointments at least 48 hours in advance. Reviewed that instances of No Shows and Same Day Appointment Cancellations may result in program/surgery delay or hold. [x] Patient advised of importance of having voicemail and MyChart for office communications and lab/testing results before and after surgery. [facility] 08-30-2022 Telephone encounter Note Initial New [facility] surgical patient Navigation & Financial Counseling Discussion Patient Communication: In office SURGEON: [] DRAKE [x] ANDER [] MP [] TB [] LM PROCEDURE: [] LRYGB [x] LSG [] JUANITA-S [] JUANITA [] UNDECIDED [] REV: SPECIFY: Confirmed pt wants to continue with surgical program/plan [x] YES [] NO (complete program withdrawal note/process) CO-MORBIDS: [] NONE [] DM []HTN [] MARIAM []GERD [] OTH: PRIVATE PAY: [] NO []YES DATE OF INITIAL BENEFITS VERIFICATION: TRANSFER FU: [] YES [] NO PRIMARY INSURANCE: Payor: [place] / Plan: [place] [employer] [place]DM / Product Type: Medicaid HMO / BENEFIT ON PLAN: [] NO [] YES BENEFIT MAX: [] NO [] YES -- BENEFIT MAX: $ EMPLOYER: DIET AND EXERCISE (DE) REQUIREMENT PRIMARY [] NONE []3M [] 6M []9M [] Medicare 4 Months [] SPR (3M) []OTHER: SECONDARY INSURANCE: BENEFIT ON PLAN: [] NO [] YES BENEFIT MAX: [] NO [] YES -- BENEFIT MAX: $ AUTH REQUIRED FROM SECONDARY [] NO [] YES DIET AND EXERCISE REQUIREMENT SECONDARY [] NONE []3M [] 6M [] Medicare 4 months [] SPR (3M) []OTHER: ___ [x] Discussed with patient: Financial cost overview (document signed and pt given copy at new pt consult visit with surgeon), Initial appointments: Bariatric Nutrition Assessment (BNA) & Diet and Exercise (DE) Patient to look for yellow envelope in mail. This yellow envelope will contain orders for labs, testing and required clearances. Pt encouraged to complete early in program to prevent delays. Encourage blood work to be draw by 1st DE appointment. [x] Reviewed OOP cost, including: [] Optifast cost of approximately $130-140/week x weeks immediately prior to surgery - used to induce rapid weight loss which results in decrease in size of liver and therefore facilitates laparoscopically surgery approach. [x] Overview of inpatient admission benefits - estimated inpatient co-pays, deductibles and/or co-insurance - Estimated OOP costs form reviewed with patient, and copy given to patient at new pt visit. [x] Reviewed next steps with patient: 1) Scheduled at new pt surgeon visit: General Utility Machine Operator (RD) for a Nutrition Assessment (BNA) and Pre-operative Diet and Exercise (DE) appointment #1. [x] Patient reminded to arrive 15 minutes early for check in. Late arrivals may need to be rescheduled. 2) Schedule: Diet and Exercise Apt #2 only scheduled after initial BNA and DE completed, 3) Behavioral Health apt scheduled after DE started. Reviewed rational and goal of Behavioral Health appointments. 4) [x] Reinforced need to cancel any WMI appointments 48 hours in advance. Cautioned NS/Same day cancellations may result in delay in program or program completion hold. Noted: DE series needs to be a monthly series or insurance company may require repeat of the entire series. 5) [x] Smoker/tobacco products including vaping: reviewed need for cessation before surgery clearance and life long abstinence after surgery for best outcomes. Patient navigation to surgery: [x] Explained to patient that average time from initial consult to date of surgery can be 6-8 months. - Process can take longer if there are cancelled appointments, delays in testing and/or additional clearances that needs to be completed. - Reviewed importance of patient active engagement in making and keeping appointments to keep the process moving. - Reinforced need to cancel appointments at least 48 hours in advance. Reviewed that instances of No Shows and Same Day Appointment Cancellations may result in program/surgery delay or hold. [x] Patient advised of importance of having voicemail and MyChart for office communications and lab/testing results before and after surgery. [facility] 08-30-2022 History of Presen t illness Narrative [facility] SURGICAL WEIGHT LOSS MANAGEMENT PROGRAM Rooming Note - INITIAL CONSULTATION Patient: Sahra Briceño Date of : 1980 Service Date: 08/30/2022 Patient is here today to discuss the possibility of weight loss surgery. This patient is accompanied by boyfriend for the evaluation today she is interested in discussing weight loss surgery. Physician Supervised D/E: 6M Weight Metrics: Vitals BP: 106/76 Heart Rate: 90 Resp: 20 Temp: 36.2 C (97.2 F) Baseline Measures Initial Height: 5' 2 (157.5 cm) Initial Weight: 319 lb 3.2 oz (145 kg) Initial BMI: 58.38 Initial EBW: 209 lb 3.2 oz (94.9 kg) Initial Waist Cricumference: 63.5in Initial Neck Circumference: 18in Falls Risk Assessment Patient doestake medications which affect BP or mental status Patient does not have newly prescribed or changed dosage of medications within past 30 days which affect BP or mental status Patient has not fallen in the past 2 months Patient does not demonstrate unsteady gait Patient uses the following ambulatory assistive devices: none Patient is low risk for falls. If high or moderate risk, patient instructed not to ambulate independently in the Center, and cord for call light placed within reach of patient. History of Difficult Intubation: No Patient is not on home O2 Completed by: Amber Lomax MA Images from the original note were not included. JEAN PAUL BAILEY MD , FACS, [facility] MINIMALLY INVASIVE & METABOLIC / BARIATRIC SURGERY [facility] BARIATRIC EVALUATION - HISTORY AND PHYSICAL 08/30/2022 PATIENT: Sahra Briceño DATE OF : 1980 HISTORY OF PRESENT ILLNESS Chief Complaint: Obesity and associated conditions. Sahra Briceño is a 42 y.o. female with obesity and associated conditions who presents to the [facility] [place] for evaluation for metabolic/bariatric surgery. The patient stands Height: 5' 2 (157.5 cm) tall with a weight of Weight: (!) 319 lb 3.2 oz (145 kg) , and has a BMI of Body mass index is 58.38 kg/m .. The patient has failed multiple attempts at non-surgical weight loss, and is now seeking surgical intervention to promote permanent and consistent weight loss. The patient suffers from several co-morbidities as a result of obesity as outlined in the past medical history. The patient denies a history of myocardia infarction, deep vein thrombosis, pulmonary embolism, renal failure, hepatic failure, stroke, and seizure. She does not smoke, and does not drink alcohol. Review of Systems Constitutional: Positive for fatigue. Negative for activity change, chills, fever and unexpected weight change. HENT: Negative for congestion. Eyes: Negative for visual disturbance. Respiratory: Positive for apnea, cough, shortness of breath and wheezing. Cardiovascular: Negative for leg swelling. Gastrointestinal: Negative for abdominal distention, abdominal pain, blood in stool, nausea and vomiting. Endocrine: Negative for cold intolerance and heat intolerance. Genitourinary: Negative for dysuria. Musculoskeletal: Positive for arthralgias, back pain and joint swelling. Negative for gait problem. Skin: Negative for color change, pallor, rash and wound. Neurological: Positive for weakness. Negative for dizziness, seizures and headaches. Hematological: Negative for adenopathy. Psychiatric/Behavioral: Positive for sleep disturbance. Negative for agitation and confusion. The patient is not nervous/anxious. PAST HISTORIES Past Medical History: Diagnosis Date Anxiety Asthma Back pain Depression RIVERO (dyspnea on exertion) GERD (gastroesophageal reflux disease) History of kidney stones Joint pain, knee Joint pain, knee Morbid obesity, unspecified obesity type (HCC) Snoring Type 2 diabetes mellitus (HCC) Past Surgical History: Procedure Laterality Date APPENDECTOMY SECTION, LOW TRANSVERSE x3 CHOLECYSTECTOMY HIP SURGERY HYSTERECTOMY tumor removal KNEE SURGERY x3 Family History Problem Relation Name Age of Onset Diabetes Mother Obesity Mother Hypertension Father Heart disease Father Cancer Sister Obesity Sister Obesity Maternal Grandfather Social History Tobacco Use Smoking status: Unknown Smokeless tobacco: Not on file Substance Use Topics Alcohol use: Not Currently @MEDCMED@ Allergies Allergen Reactions Azithromycin Penicillins Rash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 mg/dL 3.9 Uric Acid 2.5 - 6.6 mg/dL 4.2 Component Latest Ref Rng & Units 08/23/2021 IgG 700-1,600 mg/dL 909 IgA 70 - 400 mg/dL 161 IgM 40 - 230 mg/dL 151 [place] Free, Serum 3.3 - 19.4 mg/L 17.9 Lambda Free, Serum 5.7 - 26.3 mg/L 18.7 K/L Ratio, Serum 0.26 - 1.65 0.96 Component Ref Range & Units 2 wk ago 1 mo ago Albumin for SPE 3.37 - 4.23 g/dL 3.75 3.23 Low Alpha 1 Globulin 0.18 - 0.31 g/dL 0.23 0.24 Alpha 2 Globulin 0.52 - 0.97 g/dL 0.76 0.50 Low Beta Globulin 0.84 - 1.36 g/dL 1.00 1.01 Gamma Globulin 0.70 - 1.44 g/dL 1.06 1.61 High Interpretation (Prot Electro) No definitive M protein is identified on protein electrophoresis. No definitive M protein is identified on protein electrophoresis. An M protein is identified on protein electrophoresis. Abnormal M-Protein Location Gamma Fraction 1 Comment: Not Applicable. M-Protein Concentration <=0.00 g/dL 0.00 0.41 High SPE Staff Review Reviewed by Rosemary Webster MD Reviewed by Karel Dangelo M.D. M Naveed Quant, 24 Hr Urine g/24hr 0.00 Skeletal survey: IMPRESSION: Unremarkable bone survey. No lytic lesions. 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 PLAN: -Consider follow-up SPEP and UPEP showed no M proteins with normal kappa and lambda ratios. -No lytic lesion on bone survey; no further follow-up is needed. -Follow-up with ENT and primary care physician for dysphagia and weight loss The patient and family were allowed enough time to ask questions. All questions were answered to their satisfaction. Patient and family verbalized understanding of the result her tests and agreed to follow-up with PCP. Portions of this documentation were copied and pasted from previous office visit notes in order to provide a cohesive continuity of the history. The note has been reviewed and edited and updated as necessary. Pako Appiah MD Cc: Dr. Fan Issa documented in this encounterC[facility] History of Present illness Narrative* Meghann Crum RT(R) - 08/25/2021 9:00 AM EDT Radiology Service Progress Note PATIENT NAME: Sahra Briceño DATE OF SERVICE: August 25, 2021 TIME: 8:47 AM PATIENT IDENTITY VERIFICATION COMPLETED USING TWO (2) IDENTIFIERS: Name and Date of confirmedby patient verbally. FALL SCREENING: Has the patient had 2 falls in the last year or 1 fall with injury or currently using an Ambulatory Assistive Device (Walker, Cane, Wheelchair, Crutches, etc.)? No PATIENT GENDER DATA: Female. status: : No status: NO. PATIENT RELEVANT IMPLANT DATA REVIEWED: Not Applicable RADIOLOGY DEPARTMENT: General X-ray: Exam(s) Completed: Bone Survey PERIPHERAL IV DATA: Not applicable SIGNED BY: RT Damon(R) August 25, 2021 8:47 AM documented in this encounterCleveland [facility]-19-[facility]22 History and physical note * Pako Appiah MD - 08/23/2021 2:05 PM EDT Hematology and Medical Oncology PATIENT NAME: Sahra Briceño. CLINIC NO: [id number]. ATTENDING PHYSICIAN: Pako Appiah MD. DATE OF SERVICE:08/23/2021. DIAGNOSIS: Abnormal SPEP; monoclonal gammopathy of unknown significant Consultation requested by Dr. Issa for an opinion regarding abnormal SPEP. My final recommendations will be communicated back to the requesting physician by way of shared Medical record or letterto requesting physician via [place] mail. PERFORMANCE STATUS:90% HPI: 41-year-old moderately obese female presented to emergency room with neck swelling and tenderness in the neck and oropharyngeal dysphagia. She still has persistent neck pain with difficulty swallowing. He was referred to Dr. Sarmiento for EGD and barium swallow was limited due to patient ability to complete the exam. No obstruction to oral contrast. She is scheduled to see ENT for further evaluation of her neck swelling and dysphagia. She has no history of anemia, hypercalcemia or renal insufficiency. Her initial labs show an elevated globulin and decreased albumin. Serum protein electrophoresis showed 2 small band monoclonal protein in her serum. She has no history of fever, chills, night sweats, unexplained weight loss, or bone pain. MEDICATIONS: Current Outpatient Medications Medication Sig sertraline (ZOLOFT) 100 mg tablet Take two tablets by mouth once daily. lisinopril 2.5 mg tablet Take 2.5 mg by mouth once daily. traZODone (DESYREL) 50 mg tablet Take 1-2 tablets by mouth at bedtime. budesonide-formoterol (SYMBICORT) 160-4.5 mcg/actuation inhaler Inhale 2 Puffs as instructed twice daily. albuterol HFA (PROAIR HFA) 90 mcg/actuation inhaler Inhale 2 Puffs as instructed every 4 hours as needed. No current facility-administered medications for this visit. . ALLERGIES: ALLERGIES Allergen Reactions Benadryl [Diphenhyd* Rash, Swelling Oxycodone Other: See Comments Headache, dizziness Penicillin Rash Childhood reaction. . PAST MEDICAL HISTORY: PAST MEDICAL HISTORY Diagnosis Date Anemia Asthma Depression with anxiety Diabetes mellitus (HCC) . 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 FAMILY HISTORY: FAMILY HISTORY Problem Relation Age of Onset Diabetes Mother Heart Father Hypertension Father Breast Cancer Sister . SOCIAL HISTORY: Social History Tobacco Use Smoking status: Never Smoker Smokeless tobacco: Never Used Tobacco comment: No smoking in childhood home. Substance Use Topics Alcohol use: No Drug use: No . REVIEW OF SYSTEMS: CONSTITUTIONAL: No fevers, chills, nightsweats, unintended weight loss + fatigue HEENT: Denies frequent or severe heaches, nasal congestion/sinus symptoms, problematic allergy problems. + Neck pain and swelling EYES: No diplopia or blurry vision. CARDIOVASCULAR: No chest pain, dyspnea, palpitations, orthopnea, PND, ankle edema. PULM: No dyspnea, unexplained cough. GI: + dysphagia/odynophagia, no problematic reflux, constipation, diarrhea, changes in stool habits, hematochezia, melena. : No new urinary complaints, including dysuria, gross hematuria or pyuria. NEURO: No new balance problems, peripheral weakness/paresthesias or numbness of concern. MUSC-SKEL: No new joint pain, swelling, or erythema. PSY: No concerns regarding depression, anxiety or panic. INTEGUMENTARY: No new skin changes (rash, new or changing mole, new growth) PHYSICAL EXAMINATION: BP 99/62 Pulse 89 Temp (Src) 97.2 (Temporal) Ht 5' 2 (1.58m) Wt 285 lb 8 oz (129.5kg) SpO2 100% BMI 52.21 kg/(m^2). HEENT: Head is normocephalic, atraumatic. Sclerae white, conjunctivae pink. PEERL. EOMs are intact.Oropharynx is benign. NECK: Decreased range of motion with no rigidity. No palpable thyromegaly LYMPHATICS: There is no palpable adenopathy in the neck, supraclavicular region, axillae, or groin. LUNGS: Lungs are clear to percussion and auscultation. HEART: Heart is normal without murmurs, gallops, or rubs. ABDOMEN: Obese, soft and nontender without organomegaly. No masses can be palpated. EXTREMITIES: Are without edema. NEUROLOGIC: Exam is physiologic LABORATORY DATA: Component Latest Ref Rng & Units 08/23/2021 WBC 3.70 - 11.00 k/uL 5.84 RBC 3.90 - 5.20 m/uL 4.58 Hemoglobin 11.5 - 15.5 g/dL 12.8 Hematocrit 36.0 - 46.0 % 38.6 MCV 80.0 - 100.0 fL 84.3 MCH 26.0 - 34.0 pg 27.9 MCHC 30.5 - 36.0 g/dL 33.2 RDW-CV 11.5 - 15.0 % 15.1 (H) Platelet Count 150 - 400 k/uL 257 MPV 9.0 - 12.7 fL 9.5 Neut% % 56.4 Abs Neut (ANC) 1.45 - 7.50 k/uL 3.29 Lymph% % 31.3 Abs Lymph 1.00 - 4.00 k/uL 1.83 Citrus% % 9.1 Abs Citrus <0.87 k/uL 0.53 Eosin% % 2.4 Abs Eosin <0.46 k/uL 0.14 Baso% % 0.5 Abs Baso <0.11 k/uL 0.03 Immature Gran % % 0.3 IMMATURE GRANS (ABS) <0.10 k/uL <0.03 NRBC /100 WBC 0.0 Absolute nRBC <0.01 k/uL <0.01 DTYPE Auto Component Latest Ref Rng & Units 08/23/2021 Protein, Total 6.3 - 8.0 g/dL 6.8 Albumin 3.9 - 4.9 g/dL 4.0 Calcium 8.5 - 10.2 mg/dL 9.0 Bilirubin, Total 0.2 - 1.3 mg/dL 0.2 Alkaline Phosphatase 34 - 123 U/L 85 AST 13 - 35 U/L 15 ALT 7 - 38 U/L 11 Glucose 74 - 99 mg/dL 86 BUN 7 - 21 mg/dL 9 Creatinine 0.58 - 0.96 mg/dL 0.70 Sodium 136 - 144 mmol/L 139 Potassium 3.7 - 5.1 mmol/L 4.2 Chloride 97 - 105 mmol/L 105 CO2 22 - 30 mmol/L 23 Anion Gap 9 - 18 mmol/L 11 eGFR >=60 mL/min/1.73m 111 LD 135 - 214 U/L 203 Phosphorus 2.7 - 4.8 mg/dL 3.9 Uric Acid 2.5 - 6.6 mg/dL 4.2 Component Latest Ref Rng & Units 08/23/2021 Normalized CAlcium 1.08 - 1.30 mmol/L 1.23 Ionized Calcium 1.08 - 1.30 mmol/L 1.25 B2 Microglobulin 0.8 - 2.4 mg/L 2.9 (H) Component Latest Ref Rng & Units 07/25/2021 Albumin 3.37 - 4.23 g/dL 3.23 (L) Alpha 1 Globulin 0.18 - 0.31 g/dL 0.24 Alpha 2 Globulin 0.52 - 0.97 g/dL 0.50 (L) Beta Globulin 0.84 - 1.36 g/dL 1.01 Gamma Globulin 0.70 - 1.44 g/dL 1.61 (H) Interpretation (Prot Electro) No definitive M protein is identified on protein electrophoresis. An M protein is identified on protein electrophoresis. (A) M-Protein Location Gamma Fraction 1 M-Protein Concentration <=0.00 g/dL 0.41 (H) SPE Staff Review Reviewed by Karel Dangelo M.D. Comment (Serum Prot Electro) A reflex test for Monoclonal Protein analysis (immunofixation) has been ordered. M-Protein Location 2 Gamma Fraction 2 M-Protein Concentration 2 <=0.00 g/dL 0.21 (H) Interpretation Comment for Protein Electrophoresis See separate immunofixation report for characterization of monoclonal gammopathy. MPA Result No M protein is identified. M protein is present. Abnormal Interpretation (MPA) Atypical restricted bands are present in the IgM and lambda regions. Consistent with IgM lambda monoclonal gammopathy. ASSESSMENT: 41-year-old lady with monoclonal gammopathy of unknown significance (IgM lambda) with additional biclonal bands on her SPEP. PLAN: -Repeat myeloma labs -Collect 24-hour urine UPEP and immunofixation -Skeletal survey and follow-up in 2 weeks. -Further recommendations pending the results of her tests. -Follow-up with ENT and Dr. Sarmiento for oropharyngeal dysphagia. I spent 45 minutes in the visit, with more than 50% of the total stsm-vn-[id number] time of the visit in counseling / coordination of care. We will discuss further evaluation if needed. Pako Appiah MD. ELECTRONICALLY SIGNED Cc: Dr. Rody Sarmiento [facility] Diagnosis MGUS (monoclonal gammopathy of unknown significance)- Primary Monoclonal paraproteinemia documented in this encounter [facility] note* Diagnosis MGUS (monoclonal gammopathy of unknown significance) Monoclonal paraproteinemia documented in this encounter [facility] note* Diagnosis MGUS (monoclonal gammopathy of unknown significance)- Primary Monoclonal paraproteinemia documented in this encounter [facility] noteNo assessment information availableWRegional [facility] Work Phone: Evaluation note* Diagnosis Onset Date Resolution Status Angina pectoris acute RIVERO (dyspnea on exertion) [facility] Work Phone: Evaluation note* Diagnosis GERD without esophagitis Esophageal reflux Type 2 diabetes mellitus without complication, without long-term current use of insulin ([facility] ([facility]) Morbid obesity with BMI of 50.0-59.9, adult ([facility]) documented in this encounter [facility] note* Diagnosis GERD without esophagitis Esophageal reflux Type 2 diabetes mellitus without complication, without long-term current use of insulin ([facility] ([facility]) Morbid obesity with BMI of 50.0-59.9, adult ([facility]) documented in this encounter [facility] note* Diagnosis Encounter for screening for tobacco use- Primary GERD without esophagitis Esophageal reflux Type 2 diabetes mellitus without complication, without long-term current use of insulin ([facility] ([facility]) Morbid obesity with BMI of 50.0-59.9, adult ([facility]) documented in this encounter [facility] note* Diagnosis Encounter for screening for tobacco use- Primary GERD without esophagitis Esophageal reflux Type 2 diabetes mellitus without complication, without long-term current use of insulin ([facility] ([facility]) Morbid obesity with BMI of 50.0-59.9, adult ([facility]) documented in this encounter [facility] note* Diagnosis Onset Date Resolution Status Angina pectoris acute RIVERO (dyspnea on exertion) ac [place] RIVERO (dyspnea on exertion) ac [place] MARIAM (obstructive sleep apnea) acute [facility] Work Phone: Evaluation note* Diagnosis Gastroesophageal reflux disease, unspecified whether esophagitis present- Primary Gastro-esophageal reflux disease without esophagitis documented in this encounter [facility] note* Diagnosis Onset Date Resolution Status RIVERO (dyspnea on exertion) ac [place] MARIAM (obstructive sleep apnea) acute MARIAM (obstructive sleep apnea) acute Asthma chronic Obesity chronic [facility] Work Phone: Evaluation note* Diagnosis Asthma, unspecified asthma severity, unspecified whether complicated, unspecified whether persistent- Primary Morbid obesity with BMI of 50.0-59.9, adult ([facility]) Gastro-esophageal reflux disease without esophagitis documented in this encounter [facility] note* Diagnosis Type 2 diabetes mellitus without complication, without long-term current use of insulin ([facility] ([facility])- Primary BMI 50.0-59.9, adult ([facility]) Class 3 severe obesity with serious comorbidity and body mass index (BMI) of 50.0 to 59.9 in adult, unspecified obesity type (HCC) Gastro-esophageal reflux disease without esophagitis documented in this encounter [facility] note* Diagnosis Gastro-esophageal reflux disease without esophagitis documented in this encounter [facility] note* Diagnosis Encounter for screening for tobacco use- Primary GERD without esophagitis Esophageal reflux Type 2 diabetes mellitus without complication, without long-term current use of insulin ([facility] ([facility]) Morbid obesity with BMI of 50.0-59.9, adult (HCC) documented in this encounter [facility] note* Diagnosis Type 2 diabetes mellitus without complication, without long-term current use of insulin ([facility]) ([facility])- Primary BMI 50.0-59.9, adult ([facility]) Class 3 severe obesity with serious comorbidity and body mass index (BMI) of 50.0 to 59.9 in adult, unspecified obesity type (HCC) documented in this encounter [facility] Discharge instructions Additional Instructions Please ensure you ice and elevate, use Jas wrap as needed.[facility] Work Phone: Reason for referral (narrative)* Diagnostic Procedure Only (Routine) - Authorized Specialty Diagnoses / Procedures Referred By Contac t Referred To Contact XR IMAGING Diagnoses MGUS (monoclonal gammopathy of unknown significance) Procedures XR BONE SURVEY ROUTINE RADIOLOGIC EXAMINATION OSSEOUS SURVEY COMPL Pako Appiah MD [address] [place] [address] Xr Imaging Referral ID Status Reason Start Date Expiration Date Visits Requested Visits Authorized [id number] Authorized Auto-Generat ed Referral 08/23/2021 09/22/2022 1 1 [facility] for referral (narrative)* Diagnostic Procedure Only (Routine) - Closed Specialty Diagnoses / Procedures Referred By Contac t Referred To Contact XR IMAGING Diagnoses MGUS (monoclonal gammopathy of unknown significance) Procedures XR BONE SURVEY ROUTINE RADIOLOGIC EXAMINATION OSSEOUS SURVEY COMPL Pako Appiah MD [address] [place] [address] Xr Imaging Referral ID Status Reason Start Date Expiration Date V isits Requested Visits Authorized [id number] Closed Auto-Generate d Referral 08/23/2021 09/22/2022 1 1 [facility] for referral (narrative)* Consultation (Routine) - Pending Review Specialty Diagnoses / Procedures Referred By Contac t Referred To Contact Pulmonary Disease / Pulmonology Diagnoses Type 2 diabetes mellitus without complication, without long-term current use of insulin ([facility]) (HCC) Morbid obesity with BMI of 50.0-59.9, adult ([facility]) Procedures [place] OFFICE/OUTPATIENT NEW HIGH MDM 60-74 MINUTES Cherrie Deleon R, TELESALES SPECIALIST - PRODUCT OPERATIONS ASSOCIATE [address] [place] [address] [facility] [address] [place] [address] Referral ID Status Reason Start Date Expiration Date Visits Requested Visits Authorized [id number] Pending Review Specialty Services Required 09/19/2022 09/19/2023 1 1 * Consultation (Elective) - Pending Review Specialty Diagnoses / Procedures Referred By Contac t Referred To Contact Cardiology Diagnoses Type 2 diabetes mellitus without complication, without long-term current use of insulin ([facility]) (HCC) Morbid obesity with BMI of 50.0-59.9, adult (HCC) Procedures [place] OFFICE/OUTPATIENT NEW HIGH MDM 60-74 MINUTES Cherrie Deleon APRN - PRODUCT OPERATIONS ASSOCIATE [address] [place] [address] [address] [place] [address] Referral ID Status Reason Start Date Expiration Date Visits Requested Visits Authorized [id number] Pending Review Specialty Services Required 09/19/2022 09/19/2023 1 1 [facility] for referral (narrative)* Consultation (Routine) - Pending Review Specialty Diagnoses / Procedures Referred By Candida t Referred To Contact Pulmonary Disease / Pulmonology Diagnoses Type 2 diabetes mellitus without complication, without long-term current use of insulin ([facility]) (HCC) Morbid obesity with BMI of 50.0-59.9, adult (HCC) Procedures [place] OFFICE/OUTPATIENT NEW HIGH MDM 60-74 MINUTES Cherrie Deleon APRN - PRODUCT OPERATIONS ASSOCIATE [address] [place] [address] [facility] [address] [place] [address] Referral ID Status Reason Start Date Expiration Date Visits Requested Visits Authorized [id number] Pending Review Specialty Services Required 09/19/2022 09/19/2023 1 1 * Consultation (Elective) - Pending Review Specialty Diagnoses / Procedures Referred By Contac t Referred To Contact Cardiology Diagnoses Type 2 diabetes mellitus without complication, without long-term current use of insulin ([facility]) (HCC) Morbid obesity with BMI of 50.0-59.9, adult (HCC) Procedures [place] OFFICE/OUTPATIENT NEW HIGH MDM 60-74 MINUTES Cherrie Deleon APRN - PRODUCT OPERATIONS ASSOCIATE [address] [place] [address] [facility] [address] [address] Referral ID Status Reason Start Date Expiration Date Visits Requested Visits Authorized [id number] Pending Review Specialty Services Required 09/19/2022 09/19/2023 1 1 Electronically signed by Cherrie Deleon TELESALES SPECIALIST - PRODUCT OPERATIONS ASSOCIATE at 09/19/2022 11:30 AM [facility] (narrative)* Consultation (Routine) - Authorized Specialty Diagnoses / Procedures Referred By [facility] t Referred To Contact Pulmonology Diagnoses Asthma, unspecified asthma severity, unspecified whether complicated, unspecified whether persistent Procedures Complete PFT pre and post bronchodilator with FENO Rosana Travis TELESALES SPECIALIST - PRODUCT OPERATIONS ASSOCIATE [address] [place] [address] Referral ID Status Reason Start Date Expiration Date V isits Requested Visits Authorized [id number] Authorized 11/15/2022 05/14/2023 1 1 Electronically signed by Rosana Travis TELESALES SPECIALIST - PRODUCT OPERATIONS ASSOCIATE at 11/15/2022 11:26 AM [facility] [employer] [facility] for visit Narrative* Diagnostic Procedure Only (Routine) - Closed Specialty Diagnoses / Procedures [facility] Referred To Contact XR IMAGING Diagnoses MGUS (monoclonal gammopathy of unknown significance) Procedures XR BONE SURVEY ROUTINE RADIOLOGIC EXAMINATION OSSEOUS SURVEY COMPL Pako Appiah MD [address] [place] [address] Xr Imaging Referral ID Status Reason Start Date Expiration Date V isits Requested Visits Authorized [id number] Closed Auto-Generate d Referral 08/23/2021 09/22/2022 1 1 [facility] for visit Narrative* Consultation (Routine) - Authorized Specialty Diagnoses / Procedures Referred By Contac t Referred To Contact Pulmonology Diagnoses Asthma, unspecified asthma severity, unspecified whether complicated, unspecified whether persistent Procedures Complete PFT pre and post bronchodilator with FENO Rosana Travis, TELESALES SPECIALIST - PRODUCT OPERATIONS ASSOCIATE [address] [place] [address] Referral ID Status Reason Start Date Expiration Date V isits Requested Visits Authorized [id number] Authorized 11/15/2022 05/14/2023 1 1 [facility] Health Summary Purpose Family History Relationship Condition Age at Onset Recorded Date/T nancy father Cardiac disease Unknown Relationship Condition Age at Onset Recorded Date/T nancy father Cardiac disease Unknown Obstructive sleep apnea syndrome Unknown sister Obstructive sleep apnea syndrome Unknown Brother (s) Status:Active Comments:0. Father Status:Active Comments:b. 1956 ; HTN Mother Status:Active Comments:b. 1954 ; DM2 Sister (s) Status:Active Comments:5. 1 wi th breast CA in her 30s. Brother (s) Status:Active Comments:0. Father Status:Active Comments:b. 1956 ; HTN Mother Status:Active Comments:b. 1954 ; DM2 Sister (s) Status:Active Comments:5. 1 wi th breast CA in her 30s. Brother (s) Status:Active Comments:0. Father Status:Active Comments:b. 1956 ; HTN Mother Status:Active Comments:b. 1954 ; DM2 Sister (s) Status:Active Comments:5. 1 wi th breast CA in her 30s. Brother (s) Status:Active Comments:0. Father Status:Active Comments:b. 1956 ; HTN Mother Status:Active Comments:b. 1954 ; DM2 Sister (s) Status:Active Comments:5. 1 wi th breast CA in her 30s. Brother (s) Status:Active Comments:0. Father Status:Active Comments:b. 1956 ; HTN Mother Status:Active Comments:b. 1954 ; DM2 Sister (s) Status:Active Comments:5. 1 wi th breast CA in her 30s. Brother (s) Status:Active Comments:0. Father Status:Active Comments:b. 1956 ; HTN Mother Status:Active Comments:b. 1954 ; DM2 Sister (s) Status:Active Comments:5. 1 wi th breast CA in her 30s. Brother (s) Status:Active Comments:0. Father Status:Active Comments:b. 1956 ; HTN Mother Status:Active Comments:b. 1954 ; DM2 Sister (s) Status:Active Comments:5. 1 wi th breast CA in her 30s. Brother (s) Status:Active Comments:0. Father Status:Active Comments:b. 1956 ; HTN Mother Status:Active Comments:b. 1954 ; DM2 Sister (s) Status:Active Comments:5. 1 wi th breast CA in her 30s. Brother (s) Status:Active Comments:0. Father Status:Active Comments:b. 1956 ; HTN Mother Status:Active Comments:b. 1954 ; DM2 Sister (s) Status:Active Comments:5. 1 wi th breast CA in her 30s. Brother (s) Status:Active Comments:0. Father Status:Active Comments:b. 1956 ; HTN Mother Status:Active Comments:b. 1954 ; DM2 Sister (s) Status:Active Comments:5. 1 wi th breast CA in her 30s. Brother (s) Status:Active Comments:0. Father Status:Active Comments:b. 1956 ; HTN Mother Status:Active Comments:b. 1954 ; DM2 Sister (s) Status:Active Comments:5. 1 wi th breast CA in her 30s. Brother (s) Status:Active Comments:0. Father Status:Active Comments:b. 1956 ; HTN Mother Status:Active Comments:b. 1954 ; DM2 Sister (s) Status:Active Comments:5. 1 wi th breast CA in her 30s. Brother (s) Status:Active Comments:0. Father Status:Active Comments:b. 1956 ; HTN Mother Status:Active Comments:b. 1954 ; DM2 Sister (s) Status:Active Comments:5. 1 wi th breast CA in her 30s. non contributory Status:Active Brother (s) Status:Active Comments:0. Father Status:Active Comments:b. 1956 ; HTN Mother Status:Active Comments:b. 1954 ; DM2 Sister (s) Status:Active Comments:5. 1 wi th breast CA in her 30s. non contributory Status:Active non contributory Status:Active non contributory Status:Active non contributory Status:Active non contributory Status:Active non contributory Status:Active non contributory Status:Active non contributory Status:Active non contributory Status:Active non contributory Status:Active non contributory Status:Active non contributory Status:Active non contributory Status:Active non contributory Status:Active non contributory Status:Active non contributory Status:Active non contributory Status:Active Advance Directives Advance Directive Response Recorded Date/ Time Living Will No November 23 10:10pm Power of Stationary Engineer Supervisor No November 23, 2020 10:10pm Advance Directive Response Recorded Date/ Time Living Will No May 18, 2022 4:41pm Power of Stationary Engineer Supervisor No May 18 4:41pm Advance Directive Response Recorded Date/ Time Advance Directives on File No June 062022 7:28am Advance Directives No June 30 3 7:04am Living Will No June 30, 2022 7 :04am Power of Stationary Engineer Supervisor No June 30, 2022 7:04am Advance Directive Response Recorded Date/ Time Advance Directives on File No June 062022 7:28am Advance Directives No June 30 3 7:04am Living Will No September 30 3 3:05pm Power of Stationary Engineer Supervisor No September 30, 2 023 3:05pm Advance Directive Response Recorded Date/ Time Advance Directives No June 30 3 7:04am Living Will No September 30 3 3:05pm Power of Stationary Engineer Supervisor No September 30, 2 023 3:05pm Advance Directive Response Recorded Date/ Time Advance Directives No June 30 3 6:04am Living Will No September 30 3 2:05pm Power of Stationary Engineer Supervisor No September 30, 2 023 2:05pm Chief Complaint and Reason for Visit Chief Complaint SWELLING SOB, chest pain, swelling Chief Complaint SWELLING SOB, chest pain, swelling SOB Shortness of breath Chief Complaint SWELLING SOB, chest pain, swelling Shortness of breath SOB Shortness of breath ABN 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 E-ORDER Reason for Visit Angina pectoris RIVERO (dyspnea on exertion) Chief Complaint SWELLING SOB, chest pain, swelling Shortness of breath SOB Shortness of breath ABN 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 E-ORDER ABN STRESS SOB CHEST PAIN ABN STRESS SOB CHEST PAIN Reason for Visit Angina pectoris RIVERO (dyspnea on exertion) Chief Complaint SOB Shortness of breath ABN 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 E-ORDER ABN STRESS SOB CHEST PAIN ABN STRESS SOB CHEST PAIN 3 M FU R KNEE PAIN Reason for Visit Angina pectoris RIVERO (dyspnea on exertion) RIVERO (dyspnea on exertion) MARIAM (obstructive sleep apnea) Chief Complaint 3 M FU R KNEE PAIN RIVERO, MARIAM Sleep problems MARIAM; AUTO CPAP *DEVICE TAGGED Reason for Visit RIVERO (dyspnea on exer tion) MARIAM (obstructive sleep apnea) MARIAM (obstructive sleep apnea) Asthma Obesity Chief Complaint 3 M FU R KNEE PAIN RIVERO, MARIAM Sleep problems MARIAM; AUTO CPAP *DEVICE TAGGED FULL FACE MASK TRIAL XRAY Reason for Visit RIVERO (dyspnea on exer tion) MARIAM (obstructive sleep apnea) MARIAM (obstructive sleep apnea) Asthma Obesity Additional Source Comments INFORMATION SOURCE (unrecogn ized section and content) DATE CREATED AUTHOR 03/12/2021 [facility] DATE CREATED AUTHOR AUTHOR'S ORGANIZ ATION 07/14/2021 [facility] dical Specialist DATE CREATED AUTHOR AUTHOR'S ORGANIZ ATION 06/19/2022 [facility] ([place]) DATE CREATED AUTHOR AUTHOR'S ORGANIZ ATION 11/12/2022 [facility] DATE CREATED AUTHOR AUTHOR'S ORGANIZ ATION 12/17/2022 [facility] DATE CREATED AUTHOR AUTHOR'S ORGANIZ ATION 02/18/2023 [facility] DATE CREATED AUTHOR AUTHOR'S ORGANIZ ATION 09/23/2023 [facility] DATE CREATED AUTHOR AUTHOR'S ORGANIZ ATION 03/01/2024 [facility] Source Comments (unrecognize d section and content) In the event this informatio n is protected by the Federal Confidentiality of Alcohol and Drug Abuse Patient Records regulations: The Federal rules restrict any use of the information to criminally investigate or prosecute any alcohol or drug abuse patient.[facility] the event this information is protected by the Federal Confidentiality of Alcohol and Drug Abuse Patient Records regulations: The Federal rules restrict any use of the information to criminally investigate or prosecute any alcohol or drug abuse patient.[facility] the event this information is protected by the Federal Confidentiality of Alcohol and Drug Abuse Patient Records regulations: The Federal rules restrict any use of the information to criminally investigate or prosecute any alcohol or drug abuse patient.[facility] Reason for Visit (unrecogniz ed section and content) Reason Comments New Patient Evaluation Reason Comments Established Patient Reason Comments Surgical Consult New Surg Specialty Diagnoses / Procedures Referred By Contac t Referred To Contact Bariatrics Diagnoses Abnormal weight gain Body mass index (BMI) 50.0-59.9, adult (HCC) Procedures Eval & Treat Jessica Kruger [id number] [place] [address] Located Within [facility] [address] [place] [address] Referral ID Status Reason Start Date Expiration Date V isits Requested Visits Authorized [id number] Pending Review 08/29/2022 08/29/2023 1 1 Reason Onset Date Comments Financial File 08/30/2022 Financial File 2 023 Surgery Scheduling 08/30/2022 Initial sched uling-orders placed Reason Onset Date Comments Financial File 08/30/2022 Financial File 2 023 Surgery Scheduling 08/30/2022 Initial sched uling-orders placed Reason Comments Nutrition Counseling BNA initial Reason Comments New Patient WLS Sx CLEARANCESLEE P EVAL Specialty Diagnoses / Procedures Referred By Candida packer Referred To Contact Pulmonary Disease / Pulmonology Diagnoses Type 2 diabetes mellitus without complication, without long-term current use of insulin ([facility]) (HCC) Morbid obesity with BMI of 50.0-59.9, adult ([facility]) Procedures [place] OFFICE/OUTPATIENT NEW HIGH MDM 60-74 MINUTES Cherrie Deleon, TELESALES SPECIALIST - PRODUCT OPERATIONS ASSOCIATE [address] [place] [address] [facility] [address] [place] [address] Referral ID Status Reason Start Date Expiration Date Visits Requested Visits Authorized [id number] Pending Review Specialty Services Required 09/19/2022 09/19/2023 1 1 Reason Comments Weight Loss D/E 1 of 6 Specialty Diagnoses / Procedures Referred By Candida packer Referred To Contact Diagnoses Gastro-esophageal reflux disease without esophagitis Gastro-esophageal reflux disease without esophagitis [K21.9] Procedures VT EGD TRANSORAL BIOPSY SINGLE/MULTIPLE EGD WITH BIOPSY Jean Paul Bailey MD [address] [facility] [address] [place] [address] [facility] [address] [facility] [place] [address] Referral ID Status Reason Start Date Expiration Date Visits Re quested Visits Authorized [id number] 1 1 Reason Comments Weight Loss D/E 2 of 6 Care Teams (unrecognized sec tion and content) Pourer Relationship Specialty Start Date End Date Fan Issa MD PCP - General Family Practice 12/16/15 Pourer Relationship Specialty Start Date End Date Fan Issa MD PCP - General Family Practice 12/16/15 Pourer Relationship Specialty Start Date End Date Fan Issa MD PCP - General Family Practice 12/16/15 Team Status: Active Member Role Status Dates Dr. Luis Briones MD Family Provider Active Jessica Kruger UROLOGY PHYSICIAN, UROLOGY PHYSICIAN-C Primary Care Provider Acti ve Team Status: Active Member Role Status Dates Jessica Kruger UROLOGY PHYSICIAN, UROLOGY PHYSICIAN-C Primary Care Provider Acti ve Dr. Fan Robles MD Attending Provider Active Team Status: Active Member Role Status Dates Jessica Kruger UROLOGY PHYSICIAN, UROLOGY PHYSICIAN-C Primary Care Provider, Attending Provider, Referring Provider Active Team Status: Inactive Member Role Status Dates Jessica Kruger UROLOGY PHYSICIAN, UROLOGY PHYSICIAN-C Primary Care Provider Acti ve Dr. Tito Alexander MD Emergency Provider Active Team Status: Active Member Role Status Dates Jessica Kruger UROLOGY PHYSICIAN, UROLOGY PHYSICIAN-C Primary Care Provider, Ref erring Provider Active Dr. Fan Robles MD Attending Provider Active Team Status: Active Member Role Status Dates Jessica Kruger UROLOGY PHYSICIAN, UROLOGY PHYSICIAN-C Primary Care Provider, Referring Provider, Other Provider Active Dr. Isaak Clemente MD Attending Provider Activ e Team Status: Inactive Member Role Status Dates Jessica Kruger UROLOGY PHYSICIAN, UROLOGY PHYSICIAN-C Primary Care Provider, Attending Provider, Referring Provider Active Team Status: Inactive Member Role Status Dates Jessica Kruger UROLOGY PHYSICIAN, UROLOGY PHYSICIAN-C Primary Care Provider Acti ve Dr. Tito Alexander MD Attending Provider, Emergency Provider Active Team Status: Inactive Member Role Status Dates Jessica Kruger UROLOGY PHYSICIAN, UROLOGY PHYSICIAN-C Primary Care Provider, Ref erring Provider Active Елена SUN PA Attending Provider Active Team Status: Active Member Role Status Dates Jessica Kruger UROLOGY PHYSICIAN, UROLOGY PHYSICIAN-C Primary Care Provider, Ref erring Provider Active Dr. Isaak Clemente MD Attending Provider Activ e Team Status: Inactive Member Role Status Dates Jessica Kruger UROLOGY PHYSICIAN, UROLOGY PHYSICIAN-C Primary Care Provider Acti ve Елена SUN, PA Attending Provider, Referr ing Provider Active Team Status: Active Member Role Status Dates Jessica Kruger UROLOGY PHYSICIAN, UROLOGY PHYSICIAN-C Primary Care Provider Acti ve Dr. Ramon Seth MD Attending Provider Active Team Status: Inactive Member Role Status Dates Jessica Kruger UROLOGY PHYSICIAN, UROLOGY PHYSICIAN-C Primary Care Provider Acti ve Dr. Ramon Seth MD Attending Provider, Referring Pro vider Active Pourer Relationship Specialty Start Date End Date System, Provider Not In DO NOT CHANGE [place] PCP - General 08/29/22 Jean Paul Bailey MD [address] [place] [address] Surgeon General Surgery 08/29/22 Pourer Relationship Specialty Start Date End Date System, Provider Not In DO NOT CHANGE [place] PCP - General 08/29/22 Jean Paul Bailey MD [address] [place] [address] Surgeon General Surgery 08/29/22 Pourer Relationship Specialty Start Date End Date System, Provider Not In DO NOT CHANGE [place] PCP - General 08/29/22 Jean Paul Bailey MD [address] [place] [address] Surgeon General Surgery 08/29/22 Pourer Relationship Specialty Start Date End Date System, Provider Not In DO NOT CHANGE [place] PCP - General 08/29/22 Jean Paul Bailey MD [address] [place] [address] Surgeon General Surgery 08/29/22 Team Status: Inactive Member Role Status Sharmin Kruger UROLOGY PHYSICIAN, UROLOGY PHYSICIAN-C Primary Care Provider Acti ve Dr. Amber Renteria MD Emergency Provider Active Pourer Relationship Specialty Start Date End Date System, Provider Not In DO NOT CHANGE [place] PCP - General 08/29/22 Jean Paul Bailey MD [address] [place] [address] Surgeon General Surgery 08/29/22 Team Status: Inactive Member Role Status Dates Jessica Kruger UROLOGY PHYSICIAN, UROLOGY PHYSICIAN-C Primary Care Provider, Ref erring Provider Active Rosanna Armstrong UROLOGY PHYSICIAN, UROLOGY PHYSICIAN-C Attending Provider Active Team Status: Inactive Member Role Status Dates Jessica Kruger UROLOGY PHYSICIAN, UROLOGY PHYSICIAN-C Primary Care Provider Acti ve Dr. Amber Renteria MD Attending Provider, Emergency Provider Active Team Status: Inactive Member Role Status Dates Jessica Kruger UROLOGY PHYSICIAN, UROLOGY PHYSICIAN-C Primary Care Provider Acti ve Rosanna Armstrong UROLOGY PHYSICIAN, UROLOGY PHYSICIAN-C Attending Provider Active Pourer Relationship Specialty Start Date End Date System, Provider Not In DO NOT CHANGE [place] PCP - General 08/29/22 Jean Paul Bailey MD [address] [place] [address] Surgeon General Surgery 08/29/22 Pourer Relationship Specialty Start Date End Date System, Provider Not In DO NOT CHANGE [place] PCP - General 08/29/22 Jean Paul Bailey MD [address] [place] [address] Surgeon General Surgery 08/29/22 Team Status: Inactive Member Role Status Dates Jessica Kruger UROLOGY PHYSICIAN, UROLOGY PHYSICIAN-C Primary Care Provider Acti ve Jennie Ordaz UROLOGY PHYSICIAN, UROLOGY PHYSICIAN-C Attending Provider Active Pourer Relationship Specialty Start Date End Date System, Provider Not In DO NOT CHANGE [place] PCP - General 08/29/22 Jean Paul Bailey MD [address] [place] [address] Surgeon General Surgery 08/29/22 Pourer Relationship Specialty Start Date End Date System, Provider Not In DO NOT CHANGE [place] PCP - General 08/29/22 Jean Paul Baiely MD [address] [place] [address] Surgeon General Surgery 08/29/22 Pourer Relationship Specialty Start Date End Date System, Provider Not In DO NOT CHANGE [place] PCP - General 08/29/22 Jean Paul Bailey MD [address] [place] [address] Surgeon General Surgery 08/29/22 Pourer Relationship Specialty Start Date End Date System, Provider Not In DO NOT CHANGE [place] PCP - General 08/29/22 Jean Paul Bailey MD [address] [place] [address] Surgeon General Surgery 08/29/22 Pourer Relationship Specialty Start Date End Date System, Provider Not In DO NOT CHANGE [place] PCP - General 08/29/22 Jean Paul Bailey MD [address] [place] [address] Surgeon General Surgery 08/29/22 Goals (unrecognized section and content) Goals may be documented in a n alternate sectionGoals may be documented in an alternate sectionGoals may be documented in an alternate sectionGoals may be documented in an alternate sectionGoals may be documented in an alternate sectionGoals may be documented in an alternate sectionGoals may be documented in an alternate section FOR RECORDS PERTAINING TO PATIENTS WHO ARE OR HAVE BEEN ENROLLED IN A CHEMICAL DEPENDENCY/SUBSTANCEABUSE PROGRAM, SOME INFORMATION MAY BE OMITTED. This clinical summary was aggregated from multiple sources. Caution should be exercised in using it in the provision of clinical care. This summary normalizes information from multiple sources, and as a consequence, information in this document may materially change the coding, format and clinical context of patient data. In addition, data may be omitted in some cases. CLINICAL DECISIONS SHOULD BE BASED ON THE PRIMARY CLINICAL RECORDS. [facility] [employer] [facility]. provides no warranty or guarantee of the accuracy or completeness of information in this document.
[2024-08-02] MEDS: HYDROcodone Bitartrate/Apap 5/325 Tablet PO (09:24)
== END 2024-08-02 10:49 | disposition home or self-care (01) ==
PROVIDERS: Emergency Provider Emergency Medicine; Visit Provider Emergency Medicine
DX: S16.1XXA Strain of muscle, fascia and tendon at neck level, initial encounter (principal); E11.9 Type 2 diabetes mellitus without complications; Z90.710 Acquired absence of both cervix and uterus; S46.911A Strain of unspecified muscle, fascia and tendon at shoulder and upper arm level, right arm, initial encounter; J45.909 Unspecified asthma, uncomplicated; Z79.51 Long term (current) use of inhaled steroids; F32.A Depression, unspecified; Z79.899 Other long term (current) drug therapy; Z90.49 Acquired absence of other specified parts of digestive tract
CPT/HCPCS: 72040; 73030; 99282

== ENCOUNTER → 2024-10-28 | Outpatient (CLI) | payer MEDICARE, SELFPAY ==
[2024-10-28 10:38] LABS: Hematocrit 37.8 % (37-47); Hemoglobin 12.4 g/dL (12.0-15.0); Immature Granulocytes Count 0.030 X10^3/uL (0.0-0.0); Mean Corp Hgb Conc 32.8 g/dL (32-36); Mean Corpuscular Volume 83.4 fL (81-99); Mean Platelet Vol. 10.5 fl (6.2-12.0); NRBC Flagged by Analyzer 0 % (0-5); Platelet Count 263 K/mm3 (150-450); RBC Distribution Width CV 13.4 % (11.6-14.6); RBC Distribution Width SD 40.5 fl (35.1-43.9); Red Blood Count 4.53 M/mm3 (4.2-5.4); White Blood Count 6.6 K/mm3 (4.4-11.0)
[2024-10-28 11:42] LABS: AST(SGOT) 22 U/L (<=31); Alanine Aminotransfer ALT/SGPT 20 U/L (<=34); Albumin, Serum 4.0 g/dL (3.5-5.0); Alkaline Phosphatase 67 U/L (35-104); Anion Gap 12 (5-15); BUN 13 mg/dL (4-19); BUN/Creat Ratio 17.2 RATIO (10-20); Bilirubin, Direct 0.12 mg/dL (0.00-0.30); Calcium,Total 9.1 mg/dL (7.6-11.0); Carbon Dioxide 21.4 mmol/L (21.0-32.0); Chloride 104 mmol/L (98-108); Cholesterol 115 mg/dL (<=200); Globulin 2.8 g/dL (2.2-4.2); Glucose 206 mg/dL (70-99); Low Density Lipoprotein Calc. 49 mg/dL; Potassium 4.1 mmol/L (3.3-5.1); Pro- Brain NATRIURETIC PEPTIDE 137 pg/mL (<=450); Triglycerides 99 mg/dL; Very Low Density Lipoprotein 20 mg/dL (5-40); cholesterol:hdl ratio screen 2.48
== END | disposition home or self-care (01) ==
PROVIDERS: Referring Provider Nurse Practitioner Gerontology; Visit Provider Nurse Practitioner Gerontology
DX: R06.09 Other forms of dyspnea (principal); E66.01 Morbid (severe) obesity due to excess calories; Z68.43 Body mass index [BMI] 50.0-59.9, adult; R53.83 Other fatigue
CPT/HCPCS: 36415; 80048; 80061; 80076; 83880; 84443; 85025

== ENCOUNTER → 2024-11-05 | Outpatient (CLI) | payer MEDICARE, SELFPAY ==
[2024-11-05 13:25] VITALS: BP 138/72; PULSE 71; RESP 16; O2SAT 96; BMI 56.7
[2024-11-05 13:34] VITALS: PULSE 76
[2024-11-05] MEDS: Nitroglycerin SL (ED/IMG/CATH) 0.4 MG TABLET SL (13:34)
[2024-11-05 13:42] VITALS: BP 128/66; PULSE 81; RESP 18; O2SAT 94
== END | disposition home or self-care (01) ==
LOC: CT 13:03
PROVIDERS: Referring Provider Nurse Practitioner Gerontology; Visit Provider Nurse Practitioner Gerontology
DX: R07.9 Chest pain, unspecified (principal)
CPT/HCPCS: 75574; 76380; Q9967

== ENCOUNTER → 2024-11-19 | Outpatient (CLI) | payer MEDICARE, SELFPAY | END | disposition home or self-care (01) | PROVIDERS: Referring Provider Nurse Practitioner Gerontology; Visit Provider Nurse Practitioner Gerontology | DX: R00.2 Palpitations (principal) | CPT/HCPCS: 93225; 93226 ==

== ENCOUNTER → 2024-11-21 | Outpatient (CLI) | payer MEDICARE, SELFPAY ==
--- NOTE | 2024-11-21 08:11 | ECHOCS_ITS ---
Reason For Study Reason For Study: VINCENT Procedure This was a 2D Doppler, Color Flow transthoracic echocardiogram. The study was technically difficult. Contrast injection was performed. Exam performed in department. Left Ventricle Normal LV size. Left ventricular systolic function is normal. The left ventricular ejection fraction is 60 %. No regional wall motion abnormalities noted. Right Ventricle Normal RV size. Normal systolic function. Atria Normal left atrium. Normal right atrium. Mitral Valve Normal mitral valve. Tricuspid Valve Normal tricuspid valve. Aortic Valve Trisinus/trileaflet aortic valve. Pulmonic Valve Normal pulmonic valve. Great Vessels Normal aortic root. The pulmonary artery is normal size. Inferior vena cava collapse with respiration. Pericardium/Pleural No pericardial effusion. Medication 22 gauge I.V. with prn adaptor inserted into right arm. Diluted definity 2.5ml given slow IV push to enhance endocardial definition. MMode/2D Measurements & Calculations LVIDd: 4.2 cm IVSd: 1.1 cm LAV(MOD- bp): 35.9 ml LVIDs: 3.3 cm LVPWd: 1.7 cm FS: 20.3 % LAV(MOD- bp) Indexed: 15.2 ml/m2 LAV(MOD- sp2): 26.5 ml LAV(MOD- sp4): 45.7 ml SV(MOD-sp4): 58.7 ml SV(sp4- el): 62.5 ml LVAd ap4: 30.1 cm2 LVLd ap4: 8.1 cm SI(MOD-sp4): 24.8 ml/m2 EDV(MOD-sp4): 91.4 ml EDV(sp4-el): 95.0 ml LVAs ap4: 16.0 cm2 LVLs ap4: 6.7 cm ESV(MOD-sp4): 32.8 ml ESV(sp4-el): 32.5 ml EF(MOD-sp4): 64.2 % EF(sp4-el): 65.8 % LA dimension(2D): 3.9 cm LA A4 area: 17.9 cm2 RA A4 area: 16.6 cm2 Time Measurements MV dec time: 0.14 sec Doppler Measurements & Calculations MV E max jeffery: 92.8 cm/sec Lat Peak E' Jeffery: 13.9 cm/sec Med Peak E' Jeffery: 11.6 cm/sec MV A max jeffery: 86.6 cm/sec E/E' lat: 6.7 E/E' med: 8.0 MV E/A: 1.1 MV V2 max: 100.7 cm/sec MV dec slope: 654.4 cm/sec2 Ao V2 max: 164.8 cm/sec MV max P.1 mmHg Ao max P.9 mmHg MV V2 mean: 76.3 cm/sec Ao V2 mean: 115.8 cm/sec MV mean P.5 mmHg Ao mean P.1 mmHg MV V2 VTI: 30.3 cm Ao V2 VTI: 36.3 cm AV (velocity ratio): 0.88 LV V1 max: 137.6 cm/sec PA V2 max: 158.9 cm/sec LV V1 max P.6 mmHg PA V2 mean: 111.0 cm/sec LV V1 mean P.9 mmHg LV V1 mean: 106.0 cm/sec LV V1 VTI: 31.9 cm ECHO/Echo Complete W/ Contrast Interpretation Summary Normal LV size. Left ventricular systolic function is normal. The left ventricular ejection fraction is 60 %. Contrast injection was performed. Ordering Physician: Alessia Mckeon Referring Physician: Alessia Mckeon Performed By: Roxanne Curiel RCS
== END | disposition home or self-care (01) ==
LOC: CVS 08:10
PROVIDERS: Referring Provider Nurse Practitioner Gerontology; Visit Provider Nurse Practitioner Gerontology
DX: R06.09 Other forms of dyspnea (principal)
CPT/HCPCS: 93306; Q9957; A4216; C8929

== ENCOUNTER → 2024-12-22 | Outpatient (CLI) | payer MEDICARE, SELFPAY ==
--- OUTSIDE RECORDS SUMMARY | 2024-12-22 09:53 | XMS RPT_ITS | CCD ---
Author Organization [facility] Care Team Providers Care Second Officer Name Role Phone Fan Issa MD Primary Care Provider [phone] Slick HE, CARAMEL CUTTER HAND-C Jessica Primary Care Provide r Dr. Fan Robles Attending Provider Slick HE, CARAMEL CUTTER HAND-C Jessica Referring Provider Slick HE, CARAMEL CUTTER HAND-C Jessica Other Provider Dr. Isaak Clemente Attending Provider Dr. Isaak Clemente Attending Provider Neal SUN, DINO Malhotra Attending Provider JESSICA GALEANA Attending Laury LUIS Patterson MD Primary Care Unavailable Dr. Ramon Seth Attending Provider System, Provider Not In Primary Care Provider Jean Paul Bailey MD Unavailable Slick HE, CARAMEL CUTTER HAND-C Jessica Primary Care Provide r Slick HE, CARAMEL CUTTER HAND-C Jessica Referring Provider Slick HE, CARAMEL CUTTER HAND-C Jessica Primary Care Provide r Slick HE, CARAMEL CUTTER HAND-C Jessica Referring Provider Neal SUN, PA Елена Malhotra Attending Provider Nathaniel HE, CARAMEL CUTTER HAND-C Rosanna Attending Provider Slick HE, CARAMEL CUTTER HAND-C Jessica Primary Care Provide r Slick CARAMEL CUTTER HAND, CARAMEL CUTTER HANDAriC Jessica Referring Provider Neal SUN, PA Елена Malhotra Attending Provider Nathaniel CARAMEL CUTTER HAND, CARAMEL CUTTER HAND-C Rosanna Attending Provider JEAN PAUL BAILEY Admitting Unavailable JEAN PAUL BAILEY Attending Unavailable JEAN PAUL BAILEY Attending Unavailable NABIL ELIANE Attending Unavailable AMADO HANA Attending Unavailable HASSINGERJOANNEANDIE Attending Unavailable CHANDANINGERJOANNEANDIE Attending Unavailable FALAT, ROSANA A. Attending Unavailable BRIDRIGO, CHERRIE R Referring Unavailable ELIANE HAN Attending Unavailable JEAN PAUL BAILEY Attending Unavailable JESSICA KRUGER Referring Unavailable FALAT, ROSANA A. Referring Unavailable FALAT, ROSANA A. Attending Unavailable FALAT, ROSANA A. Referring Unavailable JESSICA LOCKETT Unavailable [phone] JUAN DELEON Unavailable RODY SARMIENTO Unavailable MARV SOLER DO Unavailable ENT, KENN Unavailable ROLO HOU, LEON Puckett Unavailable [phone] ANSELMO HOU, LUIS German Unavailable PHYSICAL THERAPY, CONSULT Unavailable Unavai lable ORTHOPEDICS, GENERAL Unavailable Unavailable Akbar, Keyes Unavailable Unavailable NIKUNJ HOU, PATRICIA Packer Unavailable SURGERY, GENERAL Unavailable Unavailable RIVAS HOU, ALLEN Unavailable PULMONARY, GENERAL Unavailable Unavailable LUISA FERRER Unavailable [phone] Vicki ARTEAGA, Nuvia Unavailable Unavailable JIAN BRIONES MD Unavailable SHAWN ARAMBULA MD Unavailable DOTTIE ARTEAGA, CRUZ Unavailable Unavailable Bryan ISSA MD Unavailable LANDY BEAULIEU Unavailable Unavailable Jessica Beaulieu Unavailable Unavailable Long BEAULIEU MD Unavailable CHANTELL MOE Unavailable Unavailable PAUL, RADHA Unavailable Unavailable PAUL, BARBARA Unavailable Unavailable Macrina, Crissy F Unavailable Unavailable JOZEF, JACQUIE Unavailable Unavailable Sravan, Yoli Unavailable Unavailable Miguel RN, Milady Unavailable Unavaila taz Mccall RN, Idalmis Unavailable Unavailable BRICEÑOMONICA NYYE Unavailable Unavailable Unavailable Unavailable Unavailable Unavailable [place] LABOURER-C, JESSICA Malhotra Unavailable Unav ailable Weiss PA-C, Hakeem J Unavailable Lemuel HOU, Talib Summers Unavailable Ashley Camilo LPN Unavailable Unavailabl e Unavailable Unavailable LEYDI Attending Unavailable Eri Garcia MA Unavailable Unavailable Val NORRIS, Sobeida Unavailable Unavailable Maribeth Kelley MA Unavailable Unavailable Weiss PA, Hakeem Primary Care Provider Dr. Juan Gamez DO Emergency Provider Nessa Romo Unavailable Unavailable WEISS, HAKEEM PAC Admitting Unavailable WEISS, HAKEEM PAC Attending Unavailable WEISS, HAKEEM PAC Primary Care Unavailable WEISS, HAKEEM PAC Attending Unavailable WEISS, HAKEEM PAC Primary Care Unavailable WEISS, HAKEEM PAC Admitting Unavailable Weiss PA, Hakeem Primary Care Physician Dr. Juan Gamez DO Attending Physician Dr. Juan Gamez DO Emergency Department Physi sarah Weiss PA, Hakeem Referring Provider Mike CARAMEL CUTTER HAND-CAlessia Attending Physician Mike CARAMEL CUTTER HAND-C, Alessia Referring Provider Mike CARAMEL CUTTER HAND-C, Alessia Nurse Practitioner Rolo HOU, Dr. Navarro Attending Physician Weiss, Hakeem Primary Care Unavailable Mike CARAMEL CUTTER HAND, Alessia Attending Unavailable Mike CARAMEL CUTTER HAND, Alessia Referring Unavailable Weiss, Hakeem Primary Care Unavailable Ramon Seth Attending Unavailable Mike CARAMEL CUTTER HAND, Alessia Referring Unavailable Mike CARAMEL CUTTER HAND, Alessia Consulting Unavailable Mike CARAMEL CUTTER HAND, Alessia Attending Unavailable Weiss, Hakeem Primary Care Unavailable Weiss, Hakeem Referring Unavailable Weiss, Hakeem Primary Care Unavailable Ramon Seth Attending Unavailable Mike CARAMEL CUTTER HAND, Alessia Attending Unavailable Weiss, Hakeem Primary Care Unavailable Mckeon CARAMEL CUTTER HAND, Alessia Attending Unavailable Weiss, Hakeem Primary Care Unavailable Weiss, Hakeem Primary Care Unavailable Juan Gamez Attending Unavailable Weiss, Hakeem Primary Care Unavailable Weiss, Hakeem Referring Unavailable Mckeon CARAMEL CUTTER HAND, Alessia Attending Unavailable Weiss, Hakeem Primary Care Unavailable Mckeon CARAMEL CUTTER HAND, Alessia Attending Unavailable Mckeon CARAMEL CUTTER HAND, Alessia Referring Unavailable Mcekon CARAMEL CUTTER HAND, Alessia Attending Unavailable Weiss, Hakeem Primary Care Unavailable Mckeon CARAMEL CUTTER HAND, Alessia Referring Unavailable Mckeon CARAMEL CUTTER HAND, Alessia Attending Unavailable Weiss, Hakeem Primary Care Unavailable Mckeon CARAMEL CUTTER HAND, Alessia Referring Unavailable Allergies Allergy Classification Reported Allergen(s) Allergy Type Date of Onset Reaction(s) Facility (5 sources) diphenhydrAMINE Drug Allergy 08-24-19 22 Rash, Swelling [facility] (20 sources) oxyCODONE Drug Allergy 08-24-19 22 Other: See Comments [facility] (19 sources) Penicillin Drug Allergy 03-07-19 17 Rash [facility] Work Phone: (11 sources) Penicillins Allergy to substance 11-24-19 21 Rash [facility] (20 sources) Cephalexin Drug Allergy 05-19-19 23 Other, Nausea [facility] (20 sources) Ciprofloxacin Drug Allergy 11-06-19 Other [facility] (20 sources) Lisinopril Drug Allergy 05-19-19 23 Other, Headache [facility] (20 sources) methylPREDNISolone Drug Allergy 05-19-19 23 Other [facility] (20 sources) Nitrofurantoin Drug Allergy 05-19-19 23 Other [facility] (10 sources) Sulfamethoxazole Drug Allergy 05-19-19 23 Other [facility] (10 sources) Trimethoprim Drug Allergy 05-19-19 23 Other [facility] (20 sources) Azithromycin Drug Allergy 08-31-19 23 [facility] (20 sources) diphenhydrAMINE Drug Allergy 08-24-19 22 Rash, Swelling [facility] (20 sources) Lisinopril Allergy to substance 05-19-19 23 [facility] (20 sources) Penicillins Drug Allergy 03-07-19 17 Rash [facility] (20 sources) Sulfamethoxazole Allergy to substance 05-19-19 23 [facility] (20 sources) Sulfamethoxazole / Trimethoprim Drug Allergy 03-21-19 19 [facility] (1 source) [facility] [place] [facility] (1 source[facility] [place] [facility] (1 source[facility] [place] [facility] (1 source[facility] [place] [facility] (1 source) [facility] [place] [facility] (1 source[facility] [place] [facility] (1 source) [facility] [place] [facility] (1 source[facility] [place] [facility] (1 source[facility] [place] [facility] (1 source) [facility] [place] [facility] (1 source[facility] [place] [facility] (1 source[facility] [place] [facility] (1 source) [facility] [place] [facility] (1 source[facility] [place] [facility] (1 source) [facility] [place] [facility] (1 source[facility] [place] [facility] (1 source[facility] [place] [facility] (1 source[facility] [place] [facility] (1 source[facility] [place] [facility] (1 source[facility] [place] [facility] (1 source[facility] [place] [facility] (1 source[facility] [place] [facility] (1 source) [facility] (1 source[facility] (1 source) [facility] (1 source[facility] (1 source) [facility] (1 source[facility] (20 sources) diphenhydrAMINE Drug Allergy Rash [facility] (1 source) [facility] (1 source[facility] (1 source) [facility] (1 source[facility] (1 source) [facility] (1 source[facility] (1 source[facility] (1 source[facility] (1 source) [facility] [place] [facility] (1 source[facility] [place] [facility] (1 source) [facility] [place] [facility] (1 source[facility] [place] [facility] (1 source[facility] [place] [facility] (1 source) [facility] [place] [facility] (1 source) [facility] (1 source) [facility] (1 source) [facility] (1 source[facility] (1 source[facility] (1 source[facility] (1 source) [facility] (1 source) [facility] (1 source[facility] (1 source[facility] (1 source) [facility] (1 source) [facility] (1 source[facility] (1 source) [facility] (16 sources) Ciprofloxacin Drug Allergy Nausea [facility] (16 sources) methylPREDNISolone Drug Allergy Rapid pulse [facility], [facility] (15 sources) NITROFURANTOIN, MACROCRYSTALS / Nitrofurantoin, Monohydrate Drug Allergy Headache [facility] [employer] [employer] (15 sources) Sulfamethoxazole / Trimethoprim Drug Allergy Rash [facility], [facility] (1 source) Azithromycin Drug Allergy [facility] (1 source) diphenhydrAMINE Drug Allergy [facility] (1 source) Penicillins Drug allergy (disorder) [facility] (1 source) Sulfamethoxazole / Trimethoprim Drug Allergy [facility] (1 source) Sulfonamides (Antibiotic) Drug allergy (disorder) [facility] (1 source) Cephalexin Drug Allergy 12-09-19 [facility] (1 source) Ciprofloxacin Drug Allergy 12-09-19 [facility] (1 source) diphenhydrAMINE Drug Allergy 12-09-19 [facility] (1 source) Lisinopril Drug Allergy 12-09-19 [facility] (1 source) methylPREDNISolone Drug Allergy 12-09-19 [facility] (1 source) Nitrofurantoin Drug Allergy 12-09-19 [facility] (1 source) Penicillins Drug allergy (disorder) 12-09-19 [facility] (1 source) Sulfamethoxazole Drug Allergy 12-09-19 [facility] (1 source) Trimethoprim Drug Allergy 12-09-19 [facility] Medications Current Medications Medication Drug Class(es) Dates Sig (Normalized) Sig (Original) [id number] 200 actuat albuterol 0.09 mg/actuat metered dose inhaler (20 sources) beta2-Adrenergic Agonist Start: 12-15-2022 Start: 08-25-2022 take 2 puff(s) by mo uth every six hours for wheezing albuterol 108 (90 Base) MCG/ACT inhaler inhale 2 puffs by mouth and INTO THE LUNGS every 6 hours if needed for wheezing 0 08/25/2022 Active Start: 06-12-2022 Albuterol Sulf ate (Ventolin Hfa) 90 mcg/actuation HFA aerosol inhaler Active 1 NMA INHALATION EVERY 6 HOURS as needed for shortness of breath or wheezing June 12, 2022 12:00am Complies with drug therapy Start: 06-12-2022 take 1 puff(s) by in [...] Inhaler (Sp)) 1 INHALER inhaler Active 2 NMA INHALATION TWICE A DAY October 29, 2015 12:00am Complies with drug therapy Start: 10-29-2015 Start: 10-29-2015 Budesonide-For moterol (Symbicort 160/4.5 Mcg Inhaler (Sp)) 1 INHALER inhaler Active 2 NMA INHALATION TWICE A DAY October 29, 2015 [...] 2 Puffs as in structed twice daily. 60 actuat fluticasone propionate 0.25 mg/actuat / salmeterol 0.05 mg/actuat dry powder inhaler (20 sources) Corticosteroid, beta2-Adrenergic Agonist Start: 06-27-2024 fluticasone 250 mcg-salmeteroL 50 mcg/dose blistr powdr for inhalation ; 1 (one) inhalation two times daily for 0 days Quantity: 1 {Each} Refills: 3 Ordered: 27-Jun-2024 VALENTÍN Weiss Start: 27-Jun-2024 Start: 06-16-2024 fluticasone 25 0 mcg-salmeteroL 50 mcg/dose blistr powdr for inhalation ; 1 (one) inhalation two times daily for 0 days Quantity: 1 {Each} Refills: 3 Ordered: 16-Jun-2024 VALENTÍN Weiss Start: 16-Jun-2024 Start: 02-28-2024 fluticasone 25 0 mcg-salmeteroL 50 mcg/dose blistr powdr for inhalation ; 1 (one) inhalation two times daily for 0 days Quantity: 1 {Each} Refills: 3 Ordered: 28-Feb-2024 VALENTÍN Weiss Start: 28-Feb-2024 metFORMIN hydrochloride 500 mg oral tablet (20 sources) Biguanide Start: 10-28-2024 take 1 tablet by mouth twice daily Metformin 500 mg tablet Active 500 mg PO TWICE A DAY October 28, 2024 12:00am Complies with drug therapy Start: 08-01-2024 metFORMIN 500 mg tablet ; 1 (one) tablet two times daily for 90 days Quantity: 180 {Tablet} Refills: 0 Ordered: 01-Aug-2024 MD Talib Hdez Start: 01-Aug-2024 Start: 06-03-2024 metFORMIN 500 mg tablet ; 1 (one) tablet daily for 90 days Quantity: 90 {Tablet} Refills: 0 Ordered: 03-Jun-2024 VALENTÍN Weiss Start: 03-Jun-2024 Start: 02-28-2024 End: 05-28-2024 metFORMIN 500 mg tablet ; 1 (one) tablet daily for 90 days Quantity: 90 {Tablet} Refills: 0 Ordered: 28-Feb-2024 VALENTÍN Weiss Start: 28-Feb-2024 End: 28-May-2024 Status: Inactive Start: 03-09-2021 End: 06-01-2021 metoprolol tartrate 50 mg oral tablet (2 sources) beta-Adrenergic Susan Start: 10-28-2024 take 1 tablet by mouth every hour Metoprolol Tartrate 50 mg tablet Active 50 mg PO daily 1 October 28, 2024 12:00am Cardiac CTA Take one tablet one hour prior to procedure Complies with drug therapy pantoprazole 40 mg delayed release oral tablet (20 sources) Proton Pump Inhibitor Start: 10-28-2024 take 1 tablet by mouth once daily Pantoprazole 40 mg tablet,delayed release (DR/EC) Active 40 mg PO daily October 28, 2024 12:00am Complies with drug therapy Start: 08-25-2022 pantoprazole 4 0 mg tablet,delayed release ; 1 (one) tablet daily for 0 days Quantity: 30 {Tablet} Refills: 2 Ordered: 27-Jun-2024 VALENTÍN Weiss Start: 27-Jun-2024 potassium chloride 20 meq extended release oral tablet (20 sources) Start: 10-28-2024 take 1 tablet by pernell th once daily Start: 09-21-2023 Start: 08-25-2022 Start: 08-25-2022 potassium chlo ride (Klor-Con) 20 MEQ packet dissolve 1 packet in 4 ounce(s) OF WATER AND DRINK DAILY 0 08/25/2022 Active sertraline 100 mg oral tablet (20 sources) Serotonin Reuptake Inhibitor Start: 05-03-2023 sertraline 100 mg tablet ; 2 (two) tablet daily for 0 days Quantity: 60 {Tablet} Refills: 1 Ordered: 27-Jun-2024 VALENTÍN Weiss Start: 27-Jun-2024 Start: 06-12-2022 take 1 tablet by pernell th twice daily Sertraline 100 mg tablet Active 100 mg PO TWICE A DAY June 12, 2022 12:00am Complies with drug therapy Comment on above: Take two tablets by mouth once daily. traZODone hydrochloride 50 mg oral tablet (20 sources) Serotonin Reuptake Inhibitor Start: take 50-100 mg by mouth at bedtime Trazodone 50 mg tablet Active 50 - 100 mg PO AT BEDTIME November 05, 2024 12:00am Complies with drug therapy Start: 06-27-2024 End: 09-25-2024 take 1 tablet by mouth at bedtime traZODone 50 mg tablet ; 1 to 2 tablet at bedtime for 90 days Quantity: 90 {Tablet} Refills: 0 Ordered: 27-Jun-2024 VALENTÍN Weiss Start: 27-Jun-2024 End: 25-Sep-2024 Status: Inactive Start: 06-17-2024 take 1 tablet by pernell th at bedtime traZODone 50 mg tablet ; 1 to 2 tablet at bedtime for 90 days Quantity: 90 {Tablet} Refills: 0 Ordered: 17-Jun-2024 VALENTÍN Weiss Start: 17-Jun-2024 Start: 04-23-2024 take 1 tablet by pernell th at bedtime traZODone 50 mg tablet ; 1 to 2 tablet at bedtime for 90 days Quantity: 90 {Tablet} Refills: 0 Ordered: 23-Apr-2024 VALENTÍN Weiss Start: 23-Apr-2024 Start: 04-01-2024 take 1 tablet [...] 20 mg/ml oral solution (20 sources) Uncompetitive H-akrxyy-K-aspartate Receptor Antagonist, Sigma-1 Agonist Start: 04-21-2017 End: [...] Estradiol (Sprintec) 1 EACH tablet Discontinued 1 NMA PO DAILY October 29, 2015 12:00am June 12, 2022 4:04pm Start: 10-29-2015 End: 06-12-2022 take 1 tablet [...] Start: 10-29-2015 take 1 tablet by pernell th once daily Norgestimate-Ethinyl Estradiol (Sprintec) 1 EACH tablet Active 1 EACH PO DAILY October 29, 2015 12:00am Start: 03-01-2015 End: 03-21-2016 fenofibrate 54 mg oral tablet (20 sources) Peroxisome Proliferator Receptor alpha Agonist Start: 10-28-2024 End: 10-28-2024 Fenofibrate 54 mg tablet Discontinued 145 mg PO daily October 28, 2024 9:08am October 28, 2024 9:18am Start: 10-28-2024 take 1 tablet by pernell th once daily Fenofibrate Nanocrystallized 145 mg tablet Active 145 mg PO daily October 28, 2024 12:00am Complies with drug therapy Start: 10-28-2024 End: 10-28-2024 take 1 tablet by mouth once daily Fenofibrate 54 mg tablet Discontinued 54 mg PO daily October 28, 2024 12:00am October 28, 2024 9:10am Start: 06-27-2024 fenofibrate na nocrystallized 145 mg tablet ; 1 tablet daily for 90 days Quantity: 90 {Tablet} Refills: 1 Ordered: 27-Jun-2024 VALENTÍN Weiss Start: 27-Jun-2024 Start: 02-28-2024 fenofibrate na nocrystallized 145 mg tablet ; 1 tablet daily for 90 days Quantity: 90 {Tablet} Refills: 1 Ordered: 28-Feb-2024 VALENTÍN Weiss Start: 28-Feb-2024 Start: 09-21-2023 Start: 05-03-2023 Start: 08-12-2022 24 hr fexofenadine hydrochloride 180 mg / pseudoephedrine hydrochloride 240 mg extended release oral tablet (14 sources) alpha-Adrenergic Agonist, Histamine-1 Receptor Antagonist Start: 05-25-2017 End: 06-01-2017 fluconazole 150 mg oral tabl et (14 sources) Azole Antifungal Start: 08-14-2016 End: 09-06-2016 furosemide 20 mg oral tablet (20 sources) Loop Diuretic Start: 05-10-2022 End: 05-24-2022 Start: 10-29-2015 End: 06-12-2022 take 1 tablet by mouth once daily Furosemide 40 MG tablet Discontinued 40 mg PO DAILY 7 0 October 29, 2015 12:00am June 12, 2022 4:04pm Start: 10-05-2015 End: 11-16-2015 gabapentin 400 mg oral capsu le (20 sources) Anti-epileptic Agent Start: 11-06-2019 End: 12-10-2019 Start: 02-09-2017 End: 02-19-2017 12 hr guaiFENesin 600 mg / pseudoephedrine hydrochloride 60 mg extended release oral tablet (20 sources) alpha-Adrenergic Agonist Start: 05-17-2017 End: 06-25-2017 Start: 11-16-2015 End: 11-25-2015 hydrocortisone 10 mg/ml / neomycin 3.5 mg/ml / polymyxin b [id number] unt/ml otic suspension (14 sources) Aminoglycoside Antibacterial, [...] oral tablet (14 sources) Thiazide-like Diuretic Start: 016 End: 016 metroNIDAZOLE 0.0075 mg/mg vaginal gel (14 sources) Nitroimidazole Antimicrobial Start: 012 End: mupirocin 0.02 mg/mg topical ointment (14 sources) RNA Synthetase Inhibitor Antibacterial Start: 018 End: 018 naproxen 500 mg oral tablet (17 sources) Nonsteroidal Anti-inflammatory Drug Start: 025 End: 025 take 1 tablet by mouth twice daily as needed Naproxen 500 mg tablet Discontinued 500 mg PO TWICE DAILY NEEDED August 02, 2024 12:00am November 05, 2024 1:21pm Start: 02-13-2017 End: 05-17-2017 nitrofurantoin, macrocrystal s 25 mg / nitrofurantoin, monohydrate 75 mg oral capsule (20 sources) Nitrofuran Antibacterial Start: 06-03-2020 End: 06-10-2020 Start: 05-18-2020 End: 05-25-2020 Norethindrone (14 sources) Start: 01-07-2019 End: 04-14-2019 nystatin [id number] unt/ml topical cream (14 sources) Polyene Antifungal [...] Translations: [Mixed anxiety and depressive disorder] Onset: Chronic Asthma (20 sources) Exacerbation of asthma; Translations: [Unspecified asthma with (acute) exacerbation] Onset: 3 05-18-2022 Chronic Calculus of urinary tract (20 sources) Kidney stone; Translations: [Calculus of kidney] 08-25-2022 Episodic Cardiac dysrhythmias (20 sources) Palpitations; Translations: [Palpitations] Onset: 5 08-25-2022 Episodic Coronary atherosclerosis and other heart disease (12 sources) Angina pectoris; Translations: [Angina pectoris, unspecified] Onset: 5 06-12-2022 Chronic Deficiency and other anemia (20 sources) Deficiency anemias; Translations: [Nutritional anemia, unspecified] 08-25-2022 Episodic Diabetes mellitus with complications (13 sources) Type 2 diabetes mellitus; Translations: [Type 2 [...] fatigue (20 sources) Fatigue; Translations: [Other fatigue] Onset: 5 08-25-2022 Episodic Menstrual disorders (20 sources) Dysmenorrhea; [...] gammopathy] Onset: 2 Chronic Nonspecific chest pain (20 sources) Chest pain at rest; Translations: [Chest pain, unspecified] Onset: 5 11-16-2015 Episodic Other aftercare (20 sources) Post-discharge follow-up; Translations: [Encounter for follow-up examination after completed treatment for conditions other than malignant neoplasm] 08-02-2021 Episodic Other aftercare (6 sources) Long-term current use of drug therapy; Translations: [Other longshore equipment operator (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) drug therapy] 08-13-2024 Episodic Other and ill-defined heart disease (20 [...] on exertion; Translations: [Other forms of dyspnea] 05-08-2023 Episodic Other lower respiratory disease (8 sources) Other forms of dyspnea; Translations: [Other respiratory abnormalities] Onset: 5 06-12-2022 Episodic Other lower respiratory disease (2 sources) Shortness of breath; Translations: [Shortness of [...] Chronic Other nutritional; endocrine; and metabolic disorders (5 sources) Obesity; Translations: [Obesity, unspecified] 10-30-2022 Chronic Other nutritional; endocrine; and metabolic disorders (3 sources) Obesity, unspecified; Translations: [Obesity, unspecified] Onset: 5 10-30-2022 Chronic Other nutritional; endocrine; and metabolic disorders (7 sources) Severe obesity; Translations: [Morbid (severe) obesity due to excess calories] 11-23-2022 Chronic Other nutritional; endocrine; and metabolic disorders (3 sources) Morbid (severe) obesity due to excess calories; Translations: [Morbid (severe) obesity due to excess calories (HCC)] Onset: 3 Chronic Other nutritional; endocrine; and metabolic disorders (3 sources) Body mass index (BMI) 50.0-59.9, adult; [...] unspecified organism] 04-17-2016 Episodic Residual codes; unclassified (6 sources) Obstructive sleep apnea syndrome; Translations: [Obstructive sleep apnea (adult) (pediatric)] 09-19-2022 Chronic Residual codes; unclassified (5 sources) Obstructive sleep apnea (adult) (pediatric); Translations: [Obstructive sleep apnea (adult)(pediatric)] 09-19-2022 Chronic Residual codes; unclassified (20 sources) [...] Translations: [Dorsalgia, unspecified] Onset: 3 08-30-2022 Episodic Superficial injury; contusion (6 sources) Contusion of knee; Translations: [Contusion of unspecified knee, initial encounter] 09-30-2022 Episodic Unclassified (4 sources) Follow up for multiple chronic conditions - [...] Classification Problem Date Documented Da te Episodic/Chronic Sprains and strains (18 sources) Sprain of ankle; Translations: [Sprain of unspecified ligament of unspecified ankle, initial encounter] Onset: 08-06-2024 12-01-2020 Episodic Unclassified (11 sources) New to establish - Patient is [...] well controlled with nightly trazodone. 02-28-2024 Unclassified (11 sources) [ADDITIONAL REASON] Cold Symptoms - Symptoms [...] also get SOB at times. 02-28-2024 Unclassified (5 sources) Cold Symptoms - Symptoms include nasal [...] also get SOB at times. 02-28-2024 Unclassified (5 sources) [ADDITIONAL REASON] New to establish - [...] Test Name Value Interpretation Reference Range Facility Cardiology Visit Reporton Cardiology Visit Report [facility] [place] [address] [place], [place] [address] OFFICE VISIT Date of Service: 12/08/24 MR#: [id number] Acct: [id number] Name: SAHRA BRICEÑO Rep #: [id number] : 1980 Provider: GEOVANY mcgovern Age/Sex: 44/F [place] [facility] [place] Signed HPI HPI History of Present Illness Details: This is a 44-year-old female who presents here today for cardiovascular follow up. Patient has not been seen in our office since September 2022. She presented to [facility] on 05/18/2022 for increased shortness of breath [...] was 6.5. On an outpatient basis she underwent a stress test, this was a treadmill tolerance test-which did not have nuclear imaging. Patient had an inability to reach maximum predicted heart rate. She is only able to walk 1 minute and 11 seconds for a total of 4.6 METS. She did have chest discomfort. Her functional capacity was significantly decreased for age. She did undergo a cardiac cath, this was normal. She underwent a stress test at [facility] on 10/22/2024 which demonstrated abnormal myocardial perfusion study, resting images show anterior and anteroseptal wall perfusion defect. Stress images show significant worsening of anterior and anteroseptal wall perfusion defect, this is concerning for anterior and anteroseptal wall ischemia. From a cardiac standpoint, the patient is doing well. She does acknowledge occasional palpitations. She does acknowledge occasional chest pain. This is located left chest. This occurs with exertion and at rest. She describes this as a pressure, and stabbing sensation. She does acknowledge SOB with exertion and at rest. She denies Orthopnea, and PND. She does have MARIAM-this is untreated. She states that she cannot wear a mask due to her asthma. She does not have bleeding issues; no blood in urine, stool, or nosebleeds. She does acknowledge fatigue. She denies myalgias, or claudication. She does not have edema, or sudden weight gain. She does acknowledge occasional lightheadedness. She denies dizziness, syncopal or near syncopal episodes, and headaches. Intake Vital Signs 10/28/24 07:01 11/05/24 13:25 12/08/24 07:28 Height 5 ft 2 in 5 ft 3 in 5 ft 3 in Weight: 323 lb BMI 57.2 BP 134/78 H Blood Pressure Location Lt brachial Position Sitting Respiration 20 H Pulse 88 Pulse Source Monitor Pulse Oximetry (%) 97 Intake Visit Reasons: 6 W FU Gse Mechanic Required: No Is patient in pain?: No Allergies cephalexin Allergy (Verified 12/08/24 09:23) Other ciprofloxacin (From Cipro) Allergy (Verified 12/08/24 09:23) Other lisinopril Allergy (Verified 12/08/24 09:23) Other methylprednisolone (From Medrol) Allergy (Verified 12/08/24 09:23) Other nitrofurantoin (From Macrobid) Allergy (Verified 12/08/24 09:23) Other Penicillins (PCN) Allergy (Verified 12/08/24 09:23) Rash sulfamethoxazole (From Bactrim) Allergy (Verified 12/08/24 09:23) Other trimethoprim (From Bactrim) Allergy (Verified 12/08/24 09:23) Other diphenhydramine (From Benadryl Allergy) Adverse Reaction (Intermediate, Verified 12/08/24 09:23) Anaphylaxis Medications ???Medication ???Instructions ???Recorded ???Confirmed ???Type budesonide-formoterol HFA 160 2 puff inhalation BID 10/29/1504/29 History mcg-4.5 mcg/actuation aerosol inhaler (Symbicort) albuterol sulfate 90 mcg/actuation 1 puff inhalation Q6H PRN 12/08/24 History aerosol inhaler (Ventolin HFA) shortness of breath or wheezing sertraline 100 mg tablet 100 mg PO BID 06/12/22 12/08/24 Hi story fenofibrate nanocrystallized 145 145 mg PO QDAY 10/28/24 12/08/24 H istory mg tablet metformin 500 mg tablet 500 mg PO BID 10/28/24 12/08/24 Hi story metoprolol tartrate 50 mg tablet 50 mg PO QDAY Cardiac CTA #1 TAB 0 10/28/24 12/08/24 Rx pantoprazole 40 mg tablet,delayed 40 mg PO QDAY 10/28/24 12/08/24 H istory release potassium chloride 20 mEq 20 meq PO QDAY 10/28/24 12/08/24 H istory tablet,extended release (K-Tab) trazodone 50 mg tablet 50 - 100 mg PO QHS 11/05/24 History Ejection fraction %: 60 Have you fallen in the past year?: No [facility] Medical History delivery delivered Depression COVID-19 Asthma Diabetes (more content not included)... Normal [facility] Echo Complete W/ Contraston 11-21-2024 Echo Complete W/ Contrast [facility] Cardi[facility] Services [address] [place] [address] Echo Complete W/ Contrast 11/21/24 0840 MR#: [id number] Acct: [id number] Name: SAHRA BRICEÑO Rep #: [id number] : 1980 44 From: Ramon Seth MD Attending Dr: Alessia Mckeon NP-C Status: [facility] Ordering Dr: Alessia Mckeon NP CARAMEL CUTTER HAND-C Date: 11/21/24 Location: CVS Sex: F C Admitted: Reason For Study Reason For Study: VINCENT Procedure This was a 2D Doppler, Color Flow transthoracic echocardiogram. The study was technically difficult. Contrast injection was performed. Exam performed in department. Left Ventricle Normal LV size. Left ventricular systolic function is normal. The left ventricular ejection fraction is 60 %. No regional wall motion abnormalities noted. Right Ventricle Normal RV size. Normal systolic function. Atria Normal left atrium. Normal right atrium. Mitral Valve Normal mitral valve. Tricuspid Valve Normal tricuspid valve. Aortic Valve Trisinus/trileaflet aortic valve. Pulmonic Valve Normal pulmonic valve. Great Vessels Normal aortic root. The pulmonary artery is normal size. Inferior vena cava collapse with respiration. Pericardium/Pleural No pericardial effusion. Medication 22 gauge I.V. with prn adaptor inserted into right arm. Diluted definity 2.5ml given slow IV push to enhance endocardial definition. MMode/2D Measurements Calculations LVIDd: 4.2 cm IVSd: 1.1 cm LAV(MOD-bp): 35.9 ml LVIDs: 3.3 cm LVPWd: 1.7 cm FS: 20.3 % LAV(MOD-bp) Indexed: 15.2 ml/m2 LAV(MOD-sp2): 26.5 ml LAV(MOD-sp4): 45.7 ml SV(MOD-sp4): 58.7 ml SV(sp4-el): 62.5 ml LVAd ap4: 30.1 cm2 LVLd ap4: 8.1 cm SI(MOD-sp4): 24.8 ml/m2 EDV(MOD-sp4): 91.4 ml EDV(sp4-el): 95.0 ml LVAs ap4: 16.0 cm2 LVLs ap4: 6.7 cm ESV(MOD-sp4): 32.8 ml ESV(sp4-el): 32.5 ml EF(MOD-sp4): 64.2 % EF(sp4-el): 65.8 % LA dimension(2D): 3.9 cm LA A4 area: 17.9 cm2 RA A4 area: 16.6 cm2 Time Measurements MV dec time: 0.14 sec Doppler Measurements Calculations MV E max bari: 92.8 cm/sec Lat Peak E' Bari: 13.9 cm/sec Med Peak E' Bari: 11.6 cm/sec MV A max bari: 86.6 cm/sec E/E' lat: 6.7 E/E' med: 8.0 MV E/A: 1.1 MV V2 max: 100.7 cm/sec MV dec slope: 654.4 cm/sec2 Ao V2 max: 164.8 cm/sec MV max P.1 mmHg Ao max P.9 mmHg MV V2 mean: 76.3 cm/sec Ao V2 mean: 115.8 cm/sec MV mean P.5 mmHg Ao mean P.1 mmHg MV V2 VTI: 30.3 cm Ao V2 VTI: 36.3 cm AV (velocity ratio): 0.88 LV V1 max: 137.6 cm/sec PA V2 max: 158.9 cm/sec LV V1 max P.6 mmHg PA V2 mean: 111.0 cm/sec LV V1 mean P.9 mmHg LV V1 mean: 106.0 cm/sec LV V1 VTI: 31.9 cm ECHO/Echo Complete W/ Contrast Interpretation Summary Normal LV size. Left ventricular systolic function is normal. The left ventricular ejection fraction is 60 %. Contrast injection was performed. Ordering Physician: Alessia Mckeon Referring Physician: Alessia Mckeon Performed By: Roxanne Curiel RCS 11/21/241735 Date Ramon Seth MD CC: GEOVANY Mckeon; DINO Mcpherson Date Dictated: 11/21/2440 Date Transcribed: 11/21/241735 Automatic Teller Machine Servicer: Signed Normal [facility] Coronary Angiography CTon Coronary Angiography CT [facility] Imaging Services [address] [place] [address] 11/05/241839 MR#: [id number] Acct: [id number] Name: SAHRA BRICEÑO Rep #: [id number] : 1980 44 From: Ramon Seth MD PCP: DINO Mcpherson Status:REG CLI Y Location: CT CCTA w/Cont Coronary Arteries Date of Study:: 11/05/24 CP Coronary Calcium Scoring: High-resolution Computed Tomographic imaging of the chest was performed on [11/05/24 ], with particular attention paid to the coronary arteries. Intravenous contrast agent was administered per protocol and images reconstructed and displayed. Suboptimal images were obtained because of patient's weight. LEFT MAIN CORONARY ARTERY: Normal left main coronary artery [] LEFT ANTERIOR DESCENDING CORONARY ARTERY: Left anterior descending artery not reaching the apex of the ventricle with no significant atherosclerotic plaquing or stenosis present [] LEFT CIRCUMFLEX CORONARY ARTERY: Nondominant vessel with no significant atherosclerotic plaquing noted [] RIGHT CORONARY ARTERY: No significant atherosclerotic plaque significantly inferiorly no significant stenosis present. [] [] Calcium Scoring Interpretation: Different methods to categorize the overall amount of coronary plaque. Overall amount CAC SIS Visual of coronary plaque P1 Mild -100 <2 1-2 vessels with mild amount of plaque P2 Moderate 101-300 3-4 1-2 vessels with moderate amount, 3 vessels with mild amount of plaque P3 Severe 301-999 5-7 3 vessels with moderate amount, 1 vessel with severe amount of plaque P4 Extensive >1000 >8 2-3 vessels with severe amount of plaque Conclusion: No significant atherosclerotic plaquing or stenosis present. 11/05/24 1842 Date Ramon Seth MD Cosigner Signature (if applicable): Date CC: GEOVANY Mckeon; Dr. Ramon Seth MD; DINO Mcpherson Signed Normal [facility] Limited Chest CT Cardiac Onl yon 11-05-[address] Cardiac Only [facility] Imaging Services [address] [place] [id number] Cardiac Only MR#: [id number] Acct: [id number] Name: SAHRA BRICEÑO Rep #: [id number] : 1980 F 44 From: Jose Carlos Moscoso PCP: DINO Mcpherson Status: [facility] Study: Limited Chest CT Cardiac Only Date of Exam: Exam# [id number] Ordering Dr: Alessia Mckeon NP PROCEDURE: LIMITED CHEST CT CARDIAC ONLY 11/05/2024 REASON FOR EXAM: CHEST PAIN TECHNIQUE: Procedure Code: CTCCTACHLIM Modality: CT Procedure: LIMITED CHEST CT CARDIAC ONLY One or more dose reduction techniques were used (e.g., Automated exposure control, adjustment of the mA and/or kV according to patient size, use of iterative reconstruction technique). RADIATION DOSE SUMMARY: CTDlvol: 104.75 mGy DLP: 2090.[address]/Limited Chest CT Cardiac Only IMPRESSION: Limited imaging of the lungs demonstrates no acute process. No pleural effusion or pneumothorax is seen in visualized areas. No adenopathy is noted. Diffuse fatty infiltration of the liver is seen. The visualized upper abdomen otherwise demonstrates no significant abnormality. Reading Location: [address] CC: GEOVANY Mckeon; DINO Mcpherson Automatic Teller Machine Servicer: Signed Normal [facility] Absolute lymphocyte countOrd ered By: Alessia Mckeon on 10-28-2024 Lymphocytes Auto (Unsp spec) [#/Vol] 1.49 10*3/uL 0.83-4.51 [facility] Absolute neutrophil countOrd ered By: Alessia Mckeon on 10-28-2024 Neutrophils (Bld) [#/Vol] 4.4 10*3/uL 2.0-7.7 [facility] Anion gap in Serum or Plasma Ordered By: Alessia Mckeon on 10-28-2024 Anion gap [Moles/Vol] 12 mmol/L - [facility] Automated lymphocyte count a s percentage of total leukocytesOrdered By: Alessia Mckeon on 10-28-2024 Lymphocytes/100 WBC Auto (Unsp spec) 22.6 % [facility] BUN/creatinine ratioOrdered By: Alessia Mckeon on 10-28-2024 Urea nitrogen/Creatinine [Mass ratio] 17.2 mg/mg 11-24 [facility] Basic Metabolic Profile (BMP )on 10-28-2024 BUN/CRE 17.2 RATIO Normal 11-24 [facility] Comment on above: Performed By: #### L 503.7505, L500.4100, L501.9520, L100.0100, L500.3400, L500.2500 #### [facility] Laboratory [address] [place], [address] Calcium [Mass/Vol] 9.1 mg/dL Normal 7.6-11.0 [facility] Comment on above: Performed By: #### L 503.7505, L500.4100, L501.9520, L100.0100, L500.3400, L500.2500 #### [facility] [address] [place], [address] Chloride [Moles/Vol] 104 mmol/L Normal 98-108 [facility] Comment on above: Performed By: #### L 503.7505, L500.4100, L501.9520, L100.0100, L500.3400, L500.2500 #### [facility] [address] [place], [address] CO2 [Moles/Vol] 21.4 mmol/L Normal 21.0-32.0 [facility] Comment on above: Performed By: #### L 503.7505, L500.4100, L501.9520, L100.0100, L500.3400, L500.2500 #### [facility] [address] [place], [address] Creatinine [Mass/Vol] 0.74 mg/dL Normal 0.70-1.20 [facility] Comment on above: Performed By: #### L 503.7505, L500.4100, L501.9520, L100.0100, L500.3400, L500.2500 #### [facility] [address] [place], [address] GAP 12 Normal 5-15 [facility] Comment on above: Performed By: #### L 503.7505, L500.4100, L501.9520, L100.0100, L500.3400, L500.2500 #### [facility] [address] [place], [address] GFR/1.73 sq M.predicted among non-blacks MDRD (S/P/Bld) [Vol rate/Area] 102 mL/min/{1.73_m2} Normal >60 [facility] Comment on above: Result Comment: mL/m in/1.73m2 CKD-EPI Creatinine Equation (2020) Performed By: #### L 503.7505, L500.4100, L501.9520, L100.0100, L500.3400, L500.2500 #### [facility] [address] [place], [address] Glucose [Mass/Vol] 206 mg/dL High 70-99 [facility] Comment on above: Performed By: #### L 503.7505, L500.4100, L501.9520, L100.0100, L500.3400, L500.2500 #### [facility] [address] [place], [address] Potassium [Moles/Vol] 4.1 mmol/L Normal 3.3-5.1 [facility] Comment on above: Performed By: #### L 503.7505, L500.4100, L501.9520, L100.0100, L500.3400, L500.2500 #### [facility] [address] [place], [address] Sodium [Moles/Vol] 136 mmol/L Normal 133-145 [facility] Comment on above: Performed By: #### L 503.7505, L500.4100, L501.9520, L100.0100, L500.3400, L500.2500 #### [facility] [address] [place], [address] Urea nitrogen [Mass/Vol] 13 mg/dL Normal 4-19 [facility] Comment on above: Performed By: #### L 503.7505, L500.4100, L501.9520, L100.0100, L500.3400, L500.2500 #### [facility] [address] [place], [address] Basophil percentageOrdered B y: Alessia Mckeon on 10-28-2024 Basophils/100 WBC (Bld) 0.5 % 0-1 [facility] Bilirubin directOrdered By: Alessia Mckeon on 10-28-2024 Bilirubin.direct [Mass/Vol] 0.12 mg/dL 0.00-0.30 [facility] Bilirubin, totalOrdered By: Alessia Mckeon on 10-28-2024 Bilirubin [Mass/Vol] 0.24 mg/dL 0.00-1.30 [facility] CBC W/Diff, Automatedon 10-07 Absolute Lymph 1.49 X10 3/uL Normal 0.83-4.51 [facility] Comment on above: Performed By: #### L 503.7505, L500.4100, L501.9520, L100.0100, L500.3400, L500.2500 #### [facility] Laboratory [address] [place], [address] Absolute Neut 4.4 X10 3/uL Normal 2.0-7.7 [facility] Comment on above: Performed By: #### L 503.7505, L500.4100, L501.9520, L100.0100, L500.3400, L500.2500 #### [facility] [address] [place], [address] Basophils/100 WBC (Bld) 0.5 % Normal 0-1 [facility] Comment on above: Performed By: #### L 503.7505, L500.4100, L501.9520, L100.0100, L500.3400, L500.2500 #### [facility] [address] [place], [address] Eosinophils/100 WBC (Bld) 3.3 % Normal 0-5 [facility] Comment on above: Performed By: #### L 503.7505, L500.4100, L501.9520, L100.0100, L500.3400, L500.2500 #### [facility] Laboratory [address] [facility] [place], [address] Erythrocyte distribution width (RBC) [Ratio] 13.4 % Normal 11.6-14.6 [facility] Comment on above: Performed By: #### L 503.7505, L500.4100, L501.9520, L100.0100, L500.3400, L500.2500 #### [facility] [address] [place], [address] Hematocrit (Bld) [Volume fraction] 37.8 % Normal 37-47 [facility] Comment on above: Performed By: #### L 503.7505, L500.4100, L501.9520, L100.0100, L500.3400, L500.2500 #### [facility] [address] [place], [address] Hemoglobin (Bld) [Mass/Vol] 12.4 g/dL Normal 12.0-15.0 [facility] Comment on above: Performed By: #### L 503.7505, L500.4100, L501.9520, L100.0100, L500.3400, L500.2500 #### [facility] [address] [place], [address] IG% 0.500 Normal 0.0-0.9 [facility] Comment on above: Result Comment: IG% - Immature Granulocytes (promyelocytes, myelocytes and metamyelocytes) > 1% indicates that a LEFT SHIFT is Present. Performed By: #### L 503.7505, L500.4100, L501.9520, L100.0100, L500.3400, L500.2500 #### [facility] [address] [place], [address] Lymphocytes/100 WBC (Bld) 22.6 % Normal 19-41 [facility] Comment on above: Performed By: #### L 503.7505, L500.4100, L501.9520, L100.0100, L500.3400, L500.2500 #### [facility] [address] [place], [address] MCH (RBC) [Entitic mass] 27.4 pg Normal 27.0-32.0 [facility] Comment on above: Performed By: #### L 503.7505, L500.4100, L501.9520, L100.0100, L500.3400, L500.2500 #### [facility] [address] [place], [address] MCHC (RBC) [Mass/Vol] 32.8 g/dL Normal 32-36 [facility] Comment on above: Performed By: #### L 503.7505, L500.4100, L501.9520, L100.0100, L500.3400, L500.2500 #### [facility] [address] [place], [address] MCV (RBC) [Entitic vol] 83.4 fL Normal 81-99 [facility] Comment on above: Performed By: #### L 503.7505, L500.4100, L501.9520, L100.0100, L500.3400, L500.2500 #### [facility] [address] [place], [address] Monocytes/100 WBC (Bld) 6.7 % Normal 0-10 [facility] Comment on above: Performed By: #### L 503.7505, L500.4100, L501.9520, L100.0100, L500.3400, L500.2500 #### [facility] [address] [place], [address] Neutrophils/100 WBC (Bld) 66.4 % Normal 47-70 [facility] Comment on above: Performed By: #### L 503.7505, L500.4100, L501.9520, L100.0100, L500.3400, L500.2500 #### [facility] [address] [place], [address] Nucleated RBC (Bld) [#/Vol] 0 10*3/uL Normal 0-5 [facility] Comment on above: Performed By: #### L 503.7505, L500.4100, L501.9520, L100.0100, L500.3400, L500.2500 #### [facility] [address] [place], [address] Platelet mean volume (Bld) [Entitic vol] 10.5 fL Normal 6.2-12.0 [facility] Comment on above: Performed By: #### L 503.7505, L500.4100, L501.9520, L100.0100, L500.3400, L500.2500 #### [facility] [address] [place], [address] Platelets (Bld) [#/Vol] 263 10*3/uL Normal 150-450 [facility] Comment on above: Performed By: #### L 503.7505, L500.4100, L501.9520, L100.0100, L500.3400, L500.2500 #### [facility] [address] [place], [address] RBC (Bld) [#/Vol] 4.53 10*6/uL Normal 4.2-5.4 [facility] Comment on above: Performed By: #### L 503.7505, L500.4100, L501.9520, L100.0100, L500.3400, L500.2500 #### [facility] [address] [place], [address] RDW SD 40.5 fl Normal 35.1-43.9 [facility] Comment on above: Performed By: #### L 503.7505, L500.4100, L501.9520, L100.0100, L500.3400, L500.2500 #### [facility] [address] [place], [address] WBC (Bld) [#/Vol] 6.6 10*3/uL Normal 4.4-11.0 [facility] Comment on above: Performed By: #### L 503.7505, L500.4100, L501.9520, L100.0100, L500.3400, L500.2500 #### [facility] Laboratory [address] [place], [address] Calculated very low density lipoprotein (VLDL) cholesterol measurementOrdered By: Alessia Mckeon on 10-28-2024 Calculated very low density lipoprotein (VLDL) cholesterol measurement 20 mg/dL 5-40 [facility] Carbon dioxide, total [Moles /volume] in Central venous bloodOrdered By: Alessia Mckeon on 10-28-2024 CO2 [Moles/Vol] 21.4 mmol/L 21.0-32.0 [facility] Cardiology Visit Reporton Cardiology Visit Report [facility] [address] [place] [address] OFFICE VISIT Date of Service: 10/28/24 MR#: [id number] Acct: [id number] Name: SAHRA BRICEÑO Rep #: [id number] : 1980 Provider: GEOVANY mcgovern Age/Sex: 44/F Location: [facility] [place] Status: Signed HPI HPI History of Present Illness Details: This is a 44-year-old female who presents here today for cardiovascular follow up. Patient has not been seen in our office since September 2022. She presented to [facility] on 05/18/2022 for increased shortness of breath [...] was 6.5. On an outpatient basis she underwent a stress test, this was a treadmill tolerance test-which did not have nuclear imaging. Patient had an inability to reach maximum predicted heart rate. She is only able to walk 1 minute and 11 seconds for a total of 4.6 METS. She did have chest discomfort. Her functional capacity was significantly decreased for age. She did undergo a cardiac cath, this was normal. She underwent a stress test at [facility] on 10/22/2024 which demonstrated abnormal myocardial perfusion study, resting images show anterior and anteroseptal wall perfusion defect. Stress images show significant worsening of anterior and anteroseptal wall perfusion defect, this is concerning for anterior and anteroseptal wall ischemia. From a cardiac standpoint, the patient is doing well. She does acknowledge occasional palpitations- she describes this as a fast heart beat. She does acknowledge chest pain with exertion and at rest. She states this radiates to her left arm, back, and into her neck. This can be brief, and other times it can last for a while. She does have SOB with exertion and at rest. She states that she does use her inhaler daily-this does not help. She denies Orthopnea, and PND. She does have MARIAM-but is untreated. She does not have bleeding issues; no blood in urine, stool, or nosebleeds. She does acknowledge fatigue. She denies myalgias, or claudication. She does acknowledge BLE edema, and sudden weight gain over a week. She does acknowledge occasional lightheadedness with quick positional changes. She denies dizziness, syncopal or near syncopal episodes, and headaches. Intake Vital Signs 08/02/24 08:16 10/28/24 07:01 Height 5 ft 2 in 5 ft 2 in Weight: 319 lb BMI 58.3 BP 129/79 H Blood Pressure Location Lt brachial Position Sitting Respiration 20 H Pulse 83 Pulse Source Monitor Pulse Oximetry (%) 96 Intake Visit Reasons: OVERDUE FOR OV/LAST SEEN 2022 Gse Mechanic Required: No Is patient in pain?: No Allergies cephalexin Allergy (Verified 10/28/24 09:06) Other ciprofloxacin (From Cipro) Allergy (Verified 10/28/24 09:06) Other lisinopril Allergy (Verified 10/28/24 09:06) Other methylprednisolone (From Medrol) Allergy (Verified 10/28/24 09:06) Other nitrofurantoin (From Macrobid) Allergy (Verified 10/28/24 09:06) Other Penicillins (PCN) Allergy (Verified 10/28/24 09:06) Rash sulfamethoxazole (From Bactrim) Allergy (Verified 10/28/24 09:06) Other trimethoprim (From Bactrim) Allergy (Verified 10/28/24 09:06) Other diphenhydramine (From Benadryl Allergy) Adverse Reaction (Intermediate, Verified 10/28/24 09:06) Anaphylaxis Medications ???Medication ???Instructions ???Recorded ???Confirmed ???Type budesonide-formoterol HFA 160 2 puff inhalation BID 10/29/15 History mcg-4.5 mcg/actuation aerosol inhaler (Symbicort) albuterol sulfate 90 mcg/actuation 1 puff inhalation Q6H PRN 10/28/24 History aerosol inhaler (Ventolin HFA) shortness of breath or wheezing sertraline 100 mg tablet 100 mg PO BID 06/12/22 10/28/24 Hi story naproxen 500 mg tablet 500 mg PO BID PRN #20 tabs 5 10/28/24 Rx fenofibrate nanocrystallized 145 145 mg PO QDAY 10/28/24 10/28/24 H istory mg tablet metformin 500 mg tablet 500 mg PO BID 10/28/24 10/28/24 Hi story metoprolol tartrate 50 mg tablet 50 mg PO QDAY Cardiac CTA #1 TAB 0 10/28/24 10/28/24 Rx pantoprazole 40 mg tablet,delayed 40 mg PO QDAY 10/28/24 10/28/24 H istory release potassium chloride 20 mEq 20 meq PO QDAY 10/28/24 10/28/24 H istory tablet,extended release (K-Tab) Have you fallen in the past year?: Yes PFSH Medical History ... Normal [facility] Chloride assayOrdered By: Hair Mckeon on 10-28-2024 Chloride [Moles/Vol] 104 mmol/L 98-108 [facility] Eosinophil percentageOrdered By: Alessia Mckeon on 10-28-2024 Eosinophils/100 WBC (Bld) 3.3 % 0-5 [facility] Erythrocyte distribution wid th ratioOrdered By: Alessia Mckeon on 10-28-2024 Erythrocyte distribution width (RBC) [Ratio] 13.4 % 11.6-14.6 [facility] Erythrocyte distribution wid th standard deviationOrdered By: Alessia Mckeon on 10-28-2024 Erythrocyte distribution width (RBC) [Ratio] 40.5 fl 35.1-43.9 [facility] Glomerular filtration rate ( GFR) estimation/1.73 sq m using serum, plasma, or whole bOrdered By: Alessia Mckeon on 10-28-2024 GFR/1.73 sq M.predicted among non-blacks MDRD (S/P/Bld) [Vol rate/Area] 102 mL/min/{1.73_m2} >60 [facility] Comment on above: mL/min/1.73m2 CKD-EP I Creatinine Equation (2020) Hematocrit Auto (Bld) [Volum e fraction]Ordered By: Alessia Mckeon on 10-28-2024 Hematocrit (Bld) [Volume fraction] 37.8 % 37-47 [facility] Hemoglobin measurementOrdere d By: Alessia Mckeon on 10-28-2024 Hemoglobin (Bld) [Mass/Vol] 12.4 g/dL 12.0-15.0 [facility] Immature granulocytes/100 WB C Auto (Bld)Ordered By: Alessia Mckeon on 10-28-2024 Immature granulocytes/100 WBC (Bld) 0.500 % 0.0-0.9 [facility] Comment on above: IG% - Immature Granu locytes (promyelocytes, myelocytes and metamyelocytes) > 1% indicates that a LEFT SHIFT is Present. LDL calc ser/plasOrdered By: Alessia Mckeon on 10-28-2024 Cholesterol in LDL [Mass/Vol] 49 mg/dL [facility] Comment on above: Pwcdqyafik=933-839 m g/dL & Higher Lsuy=612 mg/dL or greaterFriedwald Equation for LDL-C Laboratory - Chemistry and C hemistry - challengeOrdered By: Alessia Mckeon on 10-28-2024 AST [Catalytic activity/Vol] 22 U/L <32 [facility] Lipid Profileon 10-28-2024 CHOL:HDL 2.48 Normal [facility] Comment on above: Performed By: #### L 503.5855, L500.4100, L501.9520, L100.0100, L500.3400, L500.2500 ####[facility] [address] [place], [place], [id number] Cholesterol [Mass/Vol] 115 mg/dL Normal <=200 [facility] Comment on above: Result Comment: Chol esterol level, Desirable <200 mg/dL Borderline high cholesterol 200-239 mg/dL High cholesterol >=240 mg/dL Recommendations of the NCEP Adult Treatment Panel for the following risk-cutoff thresholds for the [place] population. Performed By: #### L 503.7505, L500.4100, L501.9520, L100.0100, L500.3400, L500.2500 ####[facility] [address] [place], [address] Cholesterol in HDL [Mass/Vol] 46 mg/dL Normal [facility] Comment on above: Result Comment: Cherelle onal Cholesterol Education Program (NCEP) guidelines: <40 mg/dL: Low HDL-cholesterol (major risk factor for CHD) >= 60 mg/dL: High HDL-cholesterol (negative risk factor for CHD) HDL-cholesterol is affected by a number of factors, e.g. smoking, exercise, hormones, sex and age. Performed By: #### L 503.7505, L500.4100, L501.9520, L100.0100, L500.3400, L500.2500 ####[facility] [address] [place], [address] Cholesterol in LDL [Mass/Vol] 49 mg/dL Normal [facility] Comment on above: Result Comment: Bord lfbbnb=898-725 mg/dL Higher Gbwl=114 mg/dL or greater Friedwald Equation for LDL-C Performed By: #### L 503.7505, L500.4100, L501.9520, L100.0100, L500.3400, L500.2500 ####[facility] [address] [place], [address] Cholesterol in VLDL [Mass/Vol] 20 mg/dL Normal 5-40 [facility] Comment on above: Performed By: #### L 503.7505, L500.4100, L501.9520, L100.0100, L500.3400, L500.2500 ####[facility] [address] [place], [address] Triglyceride [Mass/Vol] 99 mg/dL Normal [facility] Comment on above: Result Comment: The drugs N-Acetylcysteine and Metamizole may falsely depress this assay. Normal range: <150 mg/dL Borderline High: 150-199 mg/dL High: 200-499 mg/dL Very High: >500 mg/dL Performed By: #### L 503.7505, L500.4100, L501.9520, L100.0100, L500.3400, L500.2500 ####[facility] [address] [place], [address] Liver Profileon 10-28-2024 Albumin [Mass/Vol] 4.0 g/dL Normal 3.5-5.0 [facility] Comment on above: Performed By: #### L 503.7505, L500.4100, L501.9520, L100.0100, L500.3400, L500.2500 #### [facility] Laboratory [address] [place], [address] ALK PHOS 67 U/L Normal 35-104 [facility] Comment on above: Performed By: #### L 503.7505, L500.4100, L501.9520, L100.0100, L500.3400, L500.2500 #### [facility] [address] [place], [address] ALT [Catalytic activity/Vol] 20 U/L Normal <=34 [facility] Comment on above: Performed By: #### L 503.7505, L500.4100, L501.9520, L100.0100, L500.3400, L500.2500 #### [facility] [address] [place], [address] AST [Catalytic activity/Vol] 22 U/L Normal <=31 [facility] Comment on above: Performed By: #### L 503.7505, L500.4100, L501.9520, L100.0100, L500.3400, L500.2500 #### [facility] [address] [place], [address] Bilirubin [Mass/Vol] 0.24 mg/dL Normal 0.00-1.30 [facility] Comment on above: Performed By: #### L 503.7505, L500.4100, L501.9520, L100.0100, L500.3400, L500.2500 #### [facility] [address] [place], [address] Bilirubin.direct [Mass/Vol] 0.12 mg/dL Normal 0.00-0.30 [facility] Comment on above: Performed By: #### L 503.7505, L500.4100, L501.9520, L100.0100, L500.3400, L500.2500 #### [facility] [address] [place], [address] Globulin (S) [Mass/Vol] 2.8 g/dL Normal 2.2-4.2 [facility] Comment on above: Performed By: #### L 503.7505, L500.4100, L501.9520, L100.0100, L500.3400, L500.2500 #### [facility] [address] [place], [address] T PROT 6.7 g/dL Normal 5.9-8.4 [facility] Comment on above: Performed By: #### L 503.7505, L500.4100, L501.9520, L100.0100, L500.3400, L500.2500 #### [facility] [address] [place], [address] MCV (mean corpuscular volume ) determinationOrdered By: Alessia Mckeon on 10-28-2024 MCV (RBC) [Entitic vol] 83.4 fL 81-99 [facility] Mean corpuscular hemoglobin (MCH) determinationOrdered By: Alessia Mckeon on 10-28-2024 MCH (RBC) [Entitic mass] 27.4 pg 27.0-32.0 [facility] Mean corpuscular hemoglobin concentration (MCHC) determinationOrdered By: Alessia Mckeon on 10-28-2024 MCHC (RBC) [Mass/Vol] 32.8 g/dL 32-36 [facility] Mean platelet volume determi nationOrdered By: Alessia Mckeon on 10-28-2024 Platelet mean volume (Bld) [Entitic vol] 10.5 fL 6.2-12.0 [facility] Monocyte percentageOrdered B y: Alessia Mckeon on 10-28-2024 Monocytes/100 WBC (Bld) 6.7 % 0-10 [facility] Natriuretic peptide.B prohor benji N-Terminal [Mass/volume] in Serum or PlasmaOrdered By: Alessia Mckeon on 10-28-2024 Natriuretic peptide.B prohormone N-Terminal [Mass/Vol] 137 pg/mL <450 [facility] Comment on above: Heart Failure Unlike ly: < 300 pg/mLHeart Failure Likely< 50 Years: > 450 pg/mL50-75 Years: > 900 pg/mL>75 Years: > 1800 pg/mL Neutrophil percentageOrdered By: Alessia Mckeon on 10-28-2024 Neutrophils/100 WBC (Bld) 66.4 % 47-70 [facility] Nucleated red blood cell per centageOrdered By: Alessia Mckeon on 10-28-2024 Nucleated RBC/100 WBC (Bld) [Ratio] 0 % 0-5 [facility] Platelet countOrdered By: Hair Mckeon on 10-28-2024 Platelets (Bld) [#/Vol] 263 10*3/uL 150-450 [facility] Potassium measurement (mass/ volume)Ordered By: Alessia Mckeon on 10-28-2024 Potassium (Unsp spec) [Mass/Vol] 4.1 mmol/L 3.3-5.1 [facility] Pro- Brain NATRIURETIC PEPTI Vincenzo 10-28-2024 Natriuretic peptide B (Bld) [Mass/Vol] 137 pg/mL Normal <=450 [facility] Comment on above: Result Comment: Hear t Failure Unlikely: < 300 pg/mL Heart Failure Likely < 50 Years: > 450 pg/mL 50-75 Years: > 900 pg/mL >75 Years: > 1800 pg/mL Performed By: #### L 503.7205, L500.4100, L501.9520, L100.0100, L500.3400, L500.2500 ####[facility] [address] [place], [address] RBC Auto (Bld) [#/Vol]Ordere d By: Alessia Mckeon on 10-28-2024 RBC (Bld) [#/Vol] 4.53 10*6/uL 4.2-5.4 [facility] Screening total cholesterol/ high density lipoprotein (HDL) cholesterol ratioOrdered By: Alessia Mckeon on 10-28-2024 Cholesterol.total/Christa sterol in HDL [Mass ratio] 2.48 {ratio} [facility] Serum creatinine measurement (mass/volume)Ordered By: Alessia Mckeon on 10-28-2024 Creatinine [Mass/Vol] 0.74 mg/dL 0.70-1.20 [facility] Serum globulin measurementOr dered By: Alessia Mckeon on 10-28-2024 Globulin (S) [Mass/Vol] 2.8 g/dL 2.2-4.2 [facility] Serum glucose measurement (m ass/volume)Ordered By: Alessia Mckeon on 10-28-2024 Glucose [Mass/Vol] 206 mg/dL High 70-99 [facility] Serum or plasma alanine fajardo otransferase (ALT) measurementOrdered By: Alessia Mckeon on 10-28-2024 ALT [Catalytic activity/Vol] 20 U/L <35 [facility] Serum or plasma albumin kelvin urement (mass/volume)Ordered By: Alessia Mckeon on 10-28-2024 Albumin [Mass/Vol] 4.0 g/dL 3.5-5.0 [facility] Serum or plasma alkaline susan sphatase measurementOrdered By: Alessia Mckeon on 10-28-2024 ALP [Catalytic activity/Vol] 67 U/L 35-104 [facility] Serum or plasma calcium kelvin urement (mass/volume)Ordered By: Alessia Mckeon on 10-28-2024 Calcium [Mass/Vol] 9.1 mg/dL 7.6-11.0 [facility] Serum or plasma cholesterol in HDL measurement (mass/volume)Ordered By: Alessia Mckeon on 09-23-2025 Cholesterol in HDL [Mass/Vol] 46 mg/dL >40 [facility] Comment on above: National Cholesterol Education Program (NCEP) guidelines:<40 mg/dL: Low HDL-cholesterol (major risk factor for CHD)>= 60 mg/dL: High HDL-cholesterol (negative risk factor for CHD)HDL-cholesterol is affected by a number of factors, e.g. smoking, exercise, hormones, sex and age. Serum or plasma cholesterol measurement (mass/volume)Ordered By: Alessia Mckeon on 10-28-2024 Cholesterol [Mass/Vol] 115 mg/dL <201 [facility] Comment on above: Cholesterol level, D esirable <200 mg/dLBorderline high cholesterol 200-239 mg/dLHigh cholesterol >=240 mg/dLRecommendations of the NCEP Adult Treatment Panel for the following risk-cutoff thresholds for the [place] population. Serum or plasma urea nitroge n measurement (mass/volume)Ordered By: Alessia Mckeon on 10-28-2024 Urea nitrogen [Mass/Vol] 13 mg/dL 4-19 [facility] Sodium levelOrdered By: Jasmin Mckeon on 10-28-2024 Sodium [Moles/Vol] 136 mmol/L 133-145 [facility] TSH DL <= 0.005 mIU/L QnOrde red By: Alessia Mckeon on 10-28-2024 TSH Qn 1.750 uIU/mL 0.300-4.200 [facility] Thyroid Stim Hormone (TSH)on 10-28-2024 TSH 1.750 uIU/mL Normal 0.300-4.200 [facility] Comment on above: Performed By: #### L 503.7505, L500.4100, L501.9520, L100.0100, L500.3400, L500.2500 ####[facility] [address] [place], [address] Total proteinOrdered By: Raj Mckeon on 10-28-2024 Protein [Mass/Vol] 6.7 g/dL 5.9-8.4 [facility] Triglycerides measurementOrd ered By: Alessia Mckeon on 10-28-2024 Triglyceride [Mass/Vol] 99 mg/dL <199 [facility] Comment on above: The drugs N-Acetylcy steine and Metamizole may falsely depress this assay. Normal range: <150 mg/dLBorderline High: 150-199 mg/dLHigh: 200-499 mg/dLVery High: >500 mg/dL White blood cell (WBC) count Ordered By: Alessia Mckeon on 10-28-2024 WBC (Bld) [#/Vol] 6.6 10*3/uL 4.4-11.0 [facility] Cerv Spine 2 or 3 Viewson Cerv Spine 2 or 3 Views [facility] Imaging Services [address] [place] [address] Cerv Spine 2 or 3 Views MR#: [id number] Acct: [id number] Name: BRICEÑOSAHRA J Rep #: [id number] : 1980 F 44 From: Ana Moscoso PCP: DINO Mcpherson Status: REG ER Study: Cerv Spine 2 or 3 Views Date of Exam: 08/02/24 Exam# [id number] Ordering Dr: Juan Gamez DO PROCEDURE: CERV SPINE 2 OR 3 VIEWS 08/02/2024 REASON FOR EXAM: INJURY/PAIN TECHNIQUE: CERV SPINE 2 OR 3 VIEWS COMPARISON: None FINDINGS: Minimal multilevel degenerative changes of the cervical spine. No acute cervical fracture or subluxations. No acute soft tissue abnormalities. No radiographic foreign body. No dens fractures. RAD/Cerv Spine 2 or 3 Views IMPRESSION: Minimal multilevel degenerative changes of the cervical spine. No acute findings. Reading Location: [id number] CC: Dr. Juan Gamez DO; DINO Mcpherson Automatic Teller Machine Servicer: Signed Normal [facility] Emergency Department Summary on 08-02-2024 Emergency Department Summary [facility] Medical Records Department [address] [place] [address] Emergency Department Summary 08/02/24 MR#: [id number] Acct: [id number] Name: SAHRA BRICEÑO Rep #: [id number] : 1980 44 From: Juan Gamez DO PCP: DINO Mcpherson Status:DEP ER Location: ED HPI History of Present Illness HPI Narrative: Patient presents with right shoulder and neck pain that has been constant for the past 3 days. Patient states it began rather suddenly. Patient describes it as sharp. Patient states nothing makes it worse and nothing makes it better. Patient admits to some tingling into her neck. Patient states her pain does radiate into her back and into her head. Patient denies any trauma or injury. Patient denies any weakness. Chief Complaint: Upper Extremity Injury Informant: patient Onset/Context/Timing Onset: Days (3) Context: Sudden Onset Timing: Continuous Quality of Pain: Sharp Location: Right shoulder and right neck Worsened by: Nothing Relieved by: Nothing Associated Symptoms Associated Symptoms: Positive for Parasthesia (Tingling on the right side of her neck); Negative for Weakness or Loss of Funtion [facility] Medical History Depression COVID-19 Asthma Diabetes mellitus Home Medications ???Medication ???Instructions ???Recorded ???Last Taken ???Type budesonide-formoterol HFA 160 2 puff inhalation BID 10/29/15 Unk nown History mcg-4.5 mcg/actuation aerosol inhaler (Symbicort) albuterol sulfate 90 mcg/actuation 1 puff inhalation Q6H PRN Unknown History aerosol inhaler (Ventolin HFA) shortness of breath or wheezing sertraline 100 mg tablet 100 mg PO BID 06/12/22 Unknown His tory naproxen 500 mg tablet 500 mg PO BID PRN #20 tabs 5 Unknown Rx Allergy/AdvReac Type Severity Reaction Status Date / Time cephalexin Allergy Other Verified 10/30/22 07:49 ciprofloxacin (From Cipro) Allergy Other Verified 10/30/22 07:49 lisinopril Allergy Other Verified 10/30/22 07:49 methylprednisolone (From Allergy Other Verified 10/30/22 07:49 Medrol) nitrofurantoin (From Allergy Other Verified 10/30/22 07:49 Macrobid) Penicillins (PCN) Allergy Rash Verified 10/30/22 07:49 sulfamethoxazole (From Allergy Other Verified 10/30/22 07:49 Bactrim) trimethoprim (From Bactrim) Allergy Other Verified 10/30/22 07:49 Family History Father , age 63 Heart disease MARIAM (obstructive sleep apnea) Sister MARIAM (obstructive sleep apnea) Surgical History H/O: hysterectomy Hx laparoscopic cholecystectomy Social History Smoking Status: Never smoker substance use type: does not use ROS ROS ED Constitutional Constitutional ED: Denies chills or fever(s) Eyes Eyes: Denies blurry vision or change in vision ENT ENT ED: Denies rhinorrhea or sore throat Cardiovascular Cardiovascular: Denies chest pain or palpitations Respiratory/Chest Respiratory/Chest: Denies cough or dyspnea Gastrointestinal Gastrointestinal: Denies nausea or vomiting Genitourinary Genitourinary ED: Denies dysuria or hematuria Musculoskeletal Musculoskeletal: Reports back pain and neck pain Integumentary Denies abscess or rash Neurologic Neurologic: Reports headache(s); Denies weakness Allergic/Immunologic Allergic/Immunologic ED: Denies mouth swelling or urticaria EXAM Physical Exam Const Vital Signs: 08/02/24 08:16 Temperature 98.1 F Temperature Source Oral Pulse Rate 87 Respiratory Rate 16 Blood Pressure 155/80 H Blood Pressure Mean 105 Pulse Ox 96 Oxygen Delivery Method Room Air Positive well nourished and well developed Constitutional Narrative: BMI is 58.8. General Appearance ED: well developed and NAD HEENT Reports moist mucous membranes Neck supple Neck Narrative: There is tenderness over the right cervical paraspinal muscles. There is no midline tenderness. There is no bony crepitus or step-off. Range of motion is slightly limited in bilateral sidebending, right rotation, flexion, and extension secondary to pain. There is no edema or ecchymosis. General: tenderness Resp normal respiratory effort and clear to auscultation bilaterally Cardio regular rate and regular rhythm GI non-tender and non-distended Palpation: soft Extremity Extremity Narrative: There is diffuse tenderness over the right shoulder area. There is no edema or ecchymosis. There is no bony crepitus or step-off. There is no obvious deformity. Range of motion was limited in all motions of the right shoulder secondary to pain. 5/5 bilaterally upper extre (more content not included)... Normal [facility] Shoulder min 2 Viewson 08-02 Shoulder min 2 Views [facility] Imaging Services [address] [place] [address] Shoulder min 2 Views MR#: [id number] Acct: [id number] Name: SAHRA BRICEÑO Rep #: [id number] : 1980 F 44 From: Ana Moscoso PCP: DINO Mcpherson Status: REG ER Study: Shoulder min 2 Views Date of Exam: 08/02/24 Exam# [id number] Ordering Dr: Juan Gamez DO PROCEDURE: SHOULDER MIN 2 VIEWS 08/02/2024 REASON FOR EXAM: INJURY/PAIN TECHNIQUE: SHOULDER MIN 2 VIEWS COMPARISON: None FINDINGS: No acute fracture or dislocations. Mild degenerative changes of the acromioclavicular and glenohumeral joint space. No large joint effusion. Question trace calcific tendinopathy. Mild soft tissue edema. No radiographic foreign body. RAD/Shoulder min 2 Views IMPRESSION: No acute fracture or dislocations. Mild degenerative changes of the right shoulder. Question calcific tendinopathy of the right shoulder. Reading Location: [facility] CC: Dr. Juan Gamez DO; DINO Mcpherson Automatic Teller Machine Servicer: Signed Normal [facility] Laboratory - Hematology and Cell countsOrdered By: Eri Garcia on 06-27-2024 HbA1c (Bld) [Mass fraction] 7.7 % Abnormal 4.6 - 7.1 % [facility]. Laboratory - Hematology and Cell countson 02-28-2024 HbA1c (Bld) [Mass fraction] 7.8 % Abnormal 4.6 - 7.1 % [facility]. Laboratory - Chemistry and C hemistry - challengeon 09-21-2023 Average glucose Estimated from glycated hemoglobin (Bld) [Mass/Vol] 145.6 mg/dL Abnormal 0.0 - 0.0 mg/dL [facility]; [facility] Cholesterol [Mass/Vol] 129 mg/dL Normal 0 - 2 40 mg/dL [facility]; [facility] Cholesterol in HDL [Mass or moles/Vol] 59 mg/dL Normal 40 - 60 mg/dL [facility]; [facility] Cholesterol in LDL [Mass/Vol] 54 mg/dL Normal 0 - 129 mg/dL [facility]; [facility] Cholesterol.total/Christa sterol in HDL [Mass ratio] 2.2 {ratio} Normal 0.0 - 5.0 [facility]; [facility] Triglyceride [Mass/Vol] 81 mg/dL Normal 0 - 150 mg/dL [facility]; [facility], [facility] No Panel Informationon 09-20 6.7 % Abnormal 0.0 - 6.5 % [facility]; [facility] Laboratory - Chemistry and C hemistry - challengeon 05-03-2023 Albumin [Mass/Vol] 3.2 g/dL Abnormal 3.4 - 5.0 g/dL [facility]; [facility], [facility] Albumin [Mass/Vol] 0.9 g/dL Normal 0.9 - 1.6 [facility]; [facility] ALT [Catalytic activity/Vol] 22 U/L Normal 16 - 63 U/L [facility]; [facility] AST [Catalytic activity/Vol] 13 U/L Normal 13 - 39 U/L [facility]; [facility] Average glucose Estimated from glycated hemoglobin (Bld) [Mass/Vol] 145.6 mg/dL Abnormal 0.0 - 0.0 mg/dL [facility]; [facility], [facility] Bilirubin [Mass/Vol] 0.3 mg/dL Normal 0.2 - 1 .0 mg/dL [facility]; [facility] Calcium [Mass/Vol] 8.6 mg/dL Normal 8.5 - 10. 1 mg/dL [facility]; [facility] Chloride [Moles/Vol] 106 mmol/L Normal 98 - 10 7 mmol/L [facility].; [facility] CO2 [Moles/Vol] 28.2 mmol/L Normal 21.0 - 32.0 mmol/L [facility]; [facility] Creatinine [Mass/Vol] 0.75 mg/dL Normal 0.55 - 1.02 mg/dL [facility]; [facility] GFR/1.73 sq M.predicted among blacks MDRD (S/P/Bld) [Vol rate/Area] mL/min/{1.73_m2} Normal 60 - 999 {ML/MINUTE} [facility].; [facility], [facility]. GFR/1.73 sq M.predicted MDRD (S/P/Bld) [Vol rate/Area] mL/min/{1.73_m2} Normal 60 - 999 {ML/MINUTE} [facility].; [facility], [facility]. Globulin (S) [Mass/Vol] 3.6 g/dL Normal 1.5 - 3.8 g/dL [facility].; [facility], [facility]. Glucose [Mass/Vol] 111 mg/dL Abnormal 74 - 106 mg/dL [facility].; [facility], [facility]. Potassium [Moles/Vol] 4.3 mmol/L Normal 3.5 - 5.1 mmol/L [facility]; [facility], [facility] Protein [Mass/Vol] 6.8 g/dL Normal 6.4 - 8.2 g/dL [facility]; [facility], [facility] Sodium [Moles/Vol] 141 mmol/L Normal 136 - 145 mmol/L [facility], [employer]. TSH Qn 1.60 m[IU]/L Normal 0.35 - 3.74 {uIU/ml} [facility].; [facility], [employer]. Urea nitrogen [Mass/Vol] 10 mg/dL Normal 7 - 18 mg/dL [facility].; [facility], [facility]. Urea nitrogen/Creatinine [Mass ratio] 13 {ratio} Normal 0 - 30 {ratio} [facility] [employer] [facility], [employer]. No Panel Informationon 05-02 104 U/L Normal 46 - 116 U/L [facility].; [facility], [employer]. 11 mmol/L Normal 10 - 20 mmol/L [facility] [employer] [facility], [employer]ionic. 44 {years} Normal [facility].; [facility] 6.7 % Abnormal 0.0 - 6.5 % [facility] [employer] [facility] [employer] [facility] [employer] [facility], [employer]ionic. Progress Noteon 01-08-2023 Progress Note [facility] [place] PATIENT NAME: Sahra Briceño DATE OF : [...] Andie Aly, Ph.D. Clinical Psychologist [facility] [place] [facility] Office Visiton 01-05-2023 Follow-up visit [id number] Arvin Briceño 1980 F Date Provider Department Center 01/05/2023 49722-YKDTOELIANE YI [facility] None Family History Problem Relation Age of Onset Diabetes Mother Obesity Mother Hypertension Father Heart disease Father Cancer Sister Obesity Sister Obesity Maternal Grandfather Family Status - Relation Status Age at Mother Father Sister Alive Maternal Grandfather Alive Level of Service:49024 [place] OFFICE/OUTPATIENT ESTABLISHED LOW MDM 20-29 MIN Reason for Visit and Comments: Weight Loss [082075] - D/E [address] [facility] Progress Noteon 01-05-2023 Progress Note HPI, PHYSICAL [...] performed.Clinical documentation is updated and completed. Normal [facility] Progress Note [facility] PSYCHOLOGICAL TEST RESULTS REPORT [...] patient medical records, review of [facility] [place] intake paperwork, and administration and scoring of [...] having overly-constrained b (more content not included)... [facility] Progress Note [facility] PSYCHOLOGICAL TESTING VIA COMPUTER PATIENT: Sahra Briceño [...] clinical interview. ANDIE ALY, PhD Clinical Psychologist [facility] [place] [facility] Progress Note You are not granted access to view this sensitive note. Normal [facility] Office Visiton 12-22-2022 Follow-up visit [id number] Arvin Briceño 1980 F Date Provider Department Center 12/22/2022 [id number]-GELHTELIANE HAN [facility] None Family History Problem Relation Age of Onset Diabetes Mother Obesity Mother Hypertension Father Heart disease Father Cancer Sister Obesity Sister Obesity Maternal Grandfather Family Status - Relation Status Age at Mother Father Sister Alive Maternal Grandfather Alive Level of Service:82100 [place] OFFICE/OUTPATIENT ESTABLISHED LOW MDM 20-29 MIN Reason for Visit and Comments: Weight Loss [241475] - D/E 2 of 6 Normal [facility] Progress Noteon 12-22-2022 Progress Note HPI, PHYSICAL [...] was performed.Clinical documentation is updated and completed. [facility] 36on 12-18-2022 36 Pt had significant gastritis. Can we please start a PPI if she is not already on one for GERD. Thanks AD [facility] Laboratory - Chemistry and C hemistry - challengeon 12-18-2022 Glucose [Mass/Vol] 147 mg/dL High 70 - 100 mg/dL [facility] No Panel Informationon 12-18 Interpretation and review of laboratory results Abnormal [facility] Performed by: [facility], [address] [place], [place] [address] [place] [address] CLIA ID: [id number] [facility] Deprecated Hgb A1c [place]on HbA1c (Bld) [Mass fraction] 6.4 % Abnormal 4.3 - 5.6 % [facility], [facility].; [facility] Comment on above: Order Comment: Romana rodgers Type: BLOOD SPECIMEN Ordering Facility: [facility] Address: [facility] [place] [id number] Result Comment: er ican Diabetes Association guidelines indicate that patients with HgbA1c in the range 5.7-6.4% are at increased risk for development of diabetes, and intervention by lifestyle modification may be beneficial. HgbA1c greater or equal to 6.5% is considered diagnostic of diabetes. Performed By: #### 5 5454-3 #### [facility] CLIA [id number] [address] [place] [address] [place] HbA1c (Bld)on 12-15-2022 Average glucose Estimated from glycated hemoglobin (Bld) [Mass/Vol] 137 mg/dL Normal [facility] Comment on above: Order Comment: Romana rodgers Type: BLOOD SPECIMEN Ordering Facility: [facility] Address: [address], [place] [address] Result Comment: eAG: (Estimated average glucose) is a calculated value from HgbA1c and is access representative of the average blood glucose level in the last 2-3 month period. Performed By: #### 5 5454-3 #### [facility] CLIA [id number] [address] [place] [address] [place] No Panel Informationon 12-15 137 mg/dL Normal [facility] Office Visiton 11-23-2022 Follow-up visit [id number] Arvin Briceño 1980 F Date Provider Department Center 11/23/2022 [id number]-RHDAJELIANE GARRISON MD None Family History Problem Relation Age of Onset Diabetes Mother Obesity Mother Hypertension Father Heart disease Father Cancer Sister Obesity Sister Obesity Maternal Grandfather Family Status - Relation Status Age at Mother Father Sister Alive Maternal Grandfather Alive Level of Service:20287 [place] OFFICE/OUTPATIENT NEW MODERATE MDM 45-59 MINUTES Reason for Visit and Comments: Weight Loss [[id number]] - D/E [address] [facility] Progress Noteon 11-23-2022 Progress Note [facility] WEIGHT LOSS MANAGEMENT PROGRAM SUPERVISED DIET [...] Weight: 305 lb 12.8 oz (139 kg) [place] Body Weight: 125 lb (56.7 kg) Initial [...] home O2 Completed by: Sherita Small LPN 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 (more content not included)... Normal [facility] Office Visiton 11-15-2022 Follow-up visit [id number] Arvin Briceño 1980 F Date Provider Department Center 11/15/2022 [id number]-MBYJCROSANA TRAVIS [facility] P[facility] None Family History Problem Relation Age of Onset Diabetes Mother Obesity Mother Hypertension Father Heart disease Father Cancer Sister Obesity Sister Obesity Maternal Grandfather Family Status - Relation Status Age at Mother Father Sister Alive Maternal Grandfather Alive Level of Service:28208 [place] OFFICE/OUTPATIENT NEW MODERATE MDM 45-59 MINUTES Reason for Visit and Comments: New Patient [542] - WLS Sx CLEARANCE SLEEP EVAL Normal [facility] PATINSon 11-15-2022 PATINS YOUR APPOINTMENT TODanis STARR WAS WITH THE [facility], COPD CLINIC, PULMONARY AND SLEEP MEDICINE OFFICE. PLEASE CALL OUR OFFICE AT [phone] for our [place] office location or [phone] for our [place] location, IF YOU HAVE NOT RECEIVED YOUR [...] to make improvements. COVID-19 VACCINATION INFORMATION: PH. [phone] [email or web address] /VACCINE [facility] Central Scheduling [phone] [facility] Sleep Scheduling [phone] Normal [facility] Progress Noteon 11-15-2022 Progress Note [facility] [address] [facility] [address] Dept: [phone] Dept Loc: [phone] Visit type: new Reason for Visit: New Patient (WLS Sx CLEARANCE/SLEEP EVAL) Assessment and Plan Morbid Obesity -Planning for weight loss surgery and will benefit. Asthma -Fairly stable on ICS/LABA but still uses rescue about once a day. -Consider step up to ICS/LABA/LAMA for better control. -Check PFTs Severe MARIAM -On CPAP. Unsure of settings as this was ordered by Kenn provider. -Encouraged nightly compliance. Dyspnea -Exertional mostly but does have what she describes chest pain vs chest tightness with exertion which could be related to uncontrolled asthma. -Plan for asthma as above. She sees cardiology at [place]-no records available Follow up- 6 weeks after [...] includes Hysterectomy, knee surgery x 3 (right), christa, appy No history of NC, blood clots or anemia. No difficult intubations. She reports exertional dyspnea which resolves with rest. Dyspnea and chest pain limit her activities. She saw cardiology in [place] but I do not have these records. [...] Diagnosis Date Anxiety Asthma Back pain Depression VINCENT (dyspnea on exertion) GERD (gastroesophageal reflux disease) [...] Vitals reviewed. (more content not included)... Normal [facility] Progress Noteon 10-20-2022 Progress Note [facility] BARIATRIC NUTRITION ASSESSMENT SURGICAL [...] Diagnosis Date Anxiety Asthma Back pain Depression VINCENT (dyspnea on exertion) GERD (gastroesophageal reflux disease) [...] they must have someone in their home 24/7 for the first week following surgery, or [...] completed by: Aleisha Sandoval MS, RDN, LD [facility] 36on 09-20-[address] [facility] ADDENDUMNOTEon 09-19-2022 ADDENDUMNOTE Addended by: CHERRIE DELEON on: 09/19/2022 12:29 PM Modules accepted: Orders [facility] 36on 09-15-2022 36 Orders pended, PULM added D/T MARIAM eval, Pre op check list scanned to media, EGD order sent to ALS. [facility] 36 PLAN Encounter Diagnoses Name Primary? GERD without esophagitis Type 2 diabetes mellitus without complication, without long-term current use of insulin ([facility]/HCC) (HCC) Morbid obesity with BMI of 50.0-59.9, adult ([facility]) I have recommended proceeding with the evaluation and work-up for the primary procedure as outlined below: PATIENT SUMMARY Sahra J Briceño Dr. Yo 42 y.o. female with Body mass index [...] CONSULTATIONS CLEARANCE / MANAGEMENT Psychology [x] Dr. Cerdaitioscar [x] Cardiology [x] [] not ordered Pulmonary [...] full chart rreview was performed by myself. [facility] ADDENDUMNOTEon 09-15-2022 ADDENDUMNOTE Addended by: AIDA LEES on: 09/15/2022 07:11 AM Modules accepted: Orders [facility] Progress Noteon 09-15-[address] [facility] Progress Note ENDOSCOPY ORDERS To be scheduled with: Dr. Bailey Patient is: Pre-op/Pre-Bariatric Surgery CPT code: EGD with biopsy- CPT 64739 Diagnosis: GERD- K21.9 If pre-op, Diet & Exercise Requirements are, and started/scheduled on 11/23/2022: 6 months Home O2: No Known Difficult Intubation: No [facility] Progress Note Patient scheduled fo r EGD w BX 12/18/22 at 7:30 am MAIN ENDO mailed prep [facility] Office Visiton 08-30-2022 Follow-up visit [id number] Arvin Briceño 1980 F Date Provider Department Center 08/30/2022 13066-JVMJEAN PAUL BAILEY [facility] SURG None Family History Problem Relation Age of Onset Diabetes Mother Obesity Mother Hypertension Father Heart disease Father Cancer Sister Obesity Sister Obesity Maternal Grandfather Family Status - Relation Status Age at Mother Father Sister Alive Maternal Grandfather Alive Level of Service:77063 [place] OFFICE/OUTPATIENT NEW MODERATE MDM 45-59 MINUTES Reason for Visit and Comments: Surgical Consult [878] - New Surg [facility] Progress Noteon 08-30-2022 Progress Note JEAN PAUL BAILEY MD , FACS, [facility] MINIMALLY INVASIVE & METABOLIC / BARIATRIC SURGERY [facility] BARIATRIC EVALUATION - HISTORY AND PHYSICAL 08/30/2022 PATIENT: Sahra Briceño DATE OF : 1980 HISTORY OF PRESENT ILLNESS Chief Complaint: Obesity and associated conditions. Sahra Briceño is a 42 y.o. female with obesity and associated conditions who presents to the [facility] [place] for evaluation for metabolic/bariatric surgery. The patient [...] Diagnosis Date Anxiety Asthma Back pain Depression VINCETN (dyspnea on exertion) GERD (gastroesophageal reflux disease) [...] evaluation, the patient (more content not included)... [facility] Progress Note BAR[facility]ATRIC CARE [facility] SURGICAL WEIGHT LOSS MANAGEMENT PROGRAM Rooming Note [...] home O2 Completed by: Amber Lomax MA [facility] Deprecated Hgb A1c Bldon HbA1c (Bld) [Mass fraction] 6.7 % Abnormal 4.3 - 5.6 % [facility], [facility].; [facility]. Comment on above: Order Comment: Speci men Type: BLOOD SPECIMEN Ordering Facility: [facility] Address: [address] [place] [address] Result Comment: Amer ican Diabetes Association guidelines indicate that patients with HgbA1c in the range 5.7-6.4% are at increased risk for development of diabetes, and intervention by lifestyle modification may be beneficial. HgbA1c greater or equal to 6.5% is considered diagnostic of diabetes. Performed By: #### 5 5454-3 #### [facility] CLIA [id number] [address] [place] [address] [place] HbA1c (Bld)on 08-25-2022 Average glucose Estimated from glycated hemoglobin (Bld) [Mass/Vol] 146 mg/dL Normal [facility] Comment on above: Order Comment: Romana rodgers Type: BLOOD SPECIMEN Ordering Facility: [facility] Address: [address] [place] [address] Result Comment: eAG: (Estimated average glucose) is a calculated value from HgbA1c and is access representative of the average blood glucose level in the last 2-3 month period. Performed By: #### 5 5454-3 #### [facility] CLIA [id number] [address] [place] [address] [place] No Panel Informationon 08-25 146 mg/dL Normal [facility], [facility].; [facility] Absolute lymphocyte countOrd ered By: Елена De Jesus on 06-12-2022 Lymphocytes Auto (Unsp spec) [#/Vol] 2.63 10*3/uL 0.83-4.51 [facility] Basophil percentageOrdered B y: Елена De Jesus on 06-12-2022 Basophils/100 WBC (Bld) 0.5 % 0-1 [facility] Chloride [Moles/Vol] 106 mmol/L 98-107 [facility] Cholesterol [Mass/Vol] 181 mg/dL <200 [facility] Comment on above: <200 mg/dL Desirable 200-240 mg/dL Borderline >240 mg/dL High Risk Eosinophils/100 WBC (Bld) 2.2 % 0-5 [facility] Glucose [Mass/Vol] 120 mg/dL 74-106 [facility] Comment on above: Fasting Glucose resu lt from 100 to 125 mg/dL suggests IMPAIRED HOMEOSTASIS per A.D.A. criteria. Neutrophils (Bld) [#/Vol] 5.1 10*3/uL 2.0-7.7 [facility] Neutrophils/100 WBC (Bld) 58.1 % 47-70 [facility] Potassium [Moles/Vol] 4.1 mmol/L 3.5-5.1 [facility] Sodium [Moles/Vol] 140 mmol/L 136-145 [facility] Triglyceride [Mass/Vol] 328 mg/dL <199 [facility] Comment on above: The drugs N-Acetylcy steine and Metamizole may falsely depress this assay.Serum Triglycerides Reference Interval Normal <150 mg/dL Borderline high 150 - 199 mg/dL High 200 - 499 mg/dL Very High > or = 500 mg/dL WBC (Bld) [#/Vol] 8.8 10*3/uL 4.4-11.0 [facility] Blood erythrocytes count (nu mber/volume)Ordered By: Елена De Jesus on 06-12-2022 RBC (Bld) [#/Vol] 4.64 10*6/uL 4.2-5.4 [facility] Blood hemoglobin measurement (mass/volume)Ordered By: Елена De Jesus on 06-12-2022 Hemoglobin (Bld) [Mass/Vol] 13.4 g/dL 12.0-15.0 [facility] Blood lymphocytes/100 leukoc ytesOrdered By: Елена De Jesus on 06-12-2022 Lymphocytes/100 WBC (Bld) 29.9 % 19-41 [facility] Blood monocytes/100 leukocyt esOrdered By: Елена De Jesus on 06-12-2022 Monocytes/100 WBC (Bld) 9.0 % 0-10 [facility] Blood platelet mean volumeOr dered By: Елена De Jesus on 06-12-2022 Platelet mean volume (Bld) [Entitic vol] 9.8 fL 6.2-12.0 [facility] Determination of erythrocyte mean corpuscular volume (MCV)Ordered By: Елена De Jesus on 06-12-2022 MCV (RBC) [Entitic vol] 84.5 fL 81-99 [facility] Hematocrit Auto (Bld) [Volum e fraction]Ordered By: Елеан De Jesus on 06-12-2022 Hematocrit (Bld) [Volume fraction] 39.2 % 37-47 [facility] INR in Blood by Coagulation assayOrdered By: Елена De Jesus on 06-12-2022 INR Coag (Bld) [Relative time] 1.0 {INR} [facility] Laboratory - Chemistry and C hemistry - challengeOrdered By: Елена De Jesus on 06-12-2022 CO2 [Moles/Vol] 27.0 mmol/L 21.0-32.0 [facility] Urea nitrogen/Creatinine [Mass ratio] 13.8 mg/mg 10-20 [facility] Laboratory - CoagulationOrde red By: Елена De Jesus on 06-12-2022 aPTT Coag (Bld) [Time] 26.7 s 24.1-36.2 [facility] Coag (PPP) [Time] 13.0 s 11.7-14.9 [facility] - Hematology and Cell countsOrdered By: Елена De Jesus on 06-12-2022 Erythrocyte distribution width (RBC) [Entitic vol] 41.5 fL 35.1-43.9 [facility] Erythrocyte distribution width (RBC) [Ratio] 13.8 % 11.6-14.6 [facility] Immature granulocytes/100 WBC (Bld) 0.300 % 0.0-0.9 [facility] Comment on above: IG% - Immature Granu locytes (promyelocytes, myelocytes and metamyelocytes) > 1% indicates that a LEFT SHIFT is Present. MCH (RBC) [Entitic mass] 28.9 pg 27.0-32.0 [facility] Nucleated RBC/100 WBC (Bld) [Ratio] 0 % 0-5 [facility] MCHC Auto (RBC) [Mass/Vol]Or dered By: Елена De Jesus on 06-12-2022 MCHC (RBC) [Mass/Vol] 34.2 g/dL 32-36 [facility] No Panel InformationOrdered By: Елена De Jesus on 06-12-2022 Estimated GFR (MDRD) Amer 113 mL/min >60 [facility] Comment on above: GFR Calc Estimated GFR (MDRD) Non-Af Amer 93 mL/min >60 [facility] Comment on above: Non- GFR Calc No Panel Informationon 06-12 8.8 K/mm3 Normal 4.4 - 11.0 K/mm3 [facility].; [employer] [facility] [employer] [facility], Inc. Work Phone: 4.64 {M/mm3} Normal 4.2 - 5.4 {M/mm3} [facility].; [facility] [employer] [facility], Inc. Work Phone: 13.4 g/dL Normal 12.0 - 15.0 g/dL [facility].; [facility] [employer] [facility], Inc. Work Phone: 39.2 Normal 37 - 47 [facility] HospitalDAVI [employer] Inc.; [place] [facility] [employer], [employer]. Work Phone: 84.5 fL Normal 81 - 99 fL [facility] [employer] [facility] [employer], Inc. Work Phone: 28.9 pg Normal 27.0 - 32.0 pg [facility] [employer] [facility] [employer], [employer] Work Phone: 34.2 g/dL Normal 32 - 36 g/dL [facility] HospitalDAVI [employer] Inc.; [employer] [facility] [employer], [employer]. Work Phone: 13.8 Normal 11.6 - 14.6 [facility] [employer], [employer].; [employer] [facility] [employer], [employer]. Work Phone: 41.5 fL Normal 35.1 - 43.9 fL [facility] [employer], [employer].; [employer] [facility] [employer], [employer]. Work Phone: 277 K/mm3 Normal 150 - 450 K/mm3 [facility] [employer].; [facility], Inc. Work Phone: 9.8 fL Normal 6.2 - 12.0 fL [facility], Inc.; [facility], Inc. Work Phone: 58.1 Normal 47 - 70 [facility], Inc.; [facility], Inc. Work Phone: 29.9 Normal 19 - 41 [facility], Inc.; [facility], Inc. Work Phone: 9.0 Normal 0 - 10 [facility], Inc.; [facility], Inc. Work Phone: 2.2 Normal 0 - 5 [facility], Inc.; [facility], Inc. Work Phone: 0.5 Normal 0 - 1 [facility] [employer] [facility], Inc.; [facility], Inc. Work Phone: 0.300 Normal 0.0 - 0.9 [facility] [employer] [facility], Inc.; [facility], Inc. Work Phone: 5.1 {X10_3/uL} Normal 2.0 - 7.7 {X10_3/uL} [facility] [employer] [facility], Inc.; [facility], Inc. Work Phone: 2.63 {X10_3/uL} Normal 0.83 - 4.51 {X10_3/uL} [facility], Inc.; [facility], Inc. Work Phone: 0 Normal 0 - 5 [facility] [employer] [facility], Inc.; [facility], Inc. Work Phone: 13.0 s Normal 11.7 - 14.9 s [facility] [employer] [facility], Inc.; [facility], Inc. Work Phone: 1.0 Normal [facility].; [facility]. Work Phone: 26.7 s Normal 24.1 - 36.2 s [facility]; [facility]. Work Phone: 120 mg/dL Abnormal 74 - 106 mg/dL [facility].; [facility]. Work Phone: 10 mg/dL Normal 7 - 18 mg/dL [facility].; [facility]. Work Phone: 0.72 mg/dL Normal 0.55 - 1.02 mg/dL [facility].; [facility], [facility]. Work Phone: 93 mL/min Normal [facility].; [facility]. Work Phone: 113 mL/min Normal [facility].; [facility]. Work Phone: 13.8 {RATIO} Normal 10 - 20 {RATIO} [facility].; [facility], [facility]. Work Phone: 9.1 mg/dL Normal 8.5 - 10.1 mg/dL [facility].; [facility], [facility]. Work Phone: 140 mmol/L Normal 136 - 145 mmol/L [facility].; [facility], [facility]. Work Phone: 4.1 mmol/L Normal 3.5 - 5.1 mmol/L [facility].; [facility], [facility]. Work Phone: 106 mmol/L Normal 98 - 107 mmol/L [facility].; [facility], [facility]. Work Phone: 27.0 mmol/L Normal 21.0 - 32.0 mmol/L [facility].; [facility], [employer]. Work Phone: 7 Normal 5 - 15 [facility] Center[facility].; [place] - [facility], Inc. Work Phone: 181 mg/dL Normal [facility].; [facility], Inc. Work Phone: 328 mg/dL Abnormal [facility].; [facility], Inc. Work Phone: 50 mg/dL Normal [facility].; [facility], Inc. Work Phone: 65 mg/dL Normal 0 - 130 mg/dL [facility].; [facility], [employer]. Work Phone: 66 mg/dL Abnormal 5 - 40 mg/dL [facility] Center[facility].; [employer] [facility] [employer] [facility], [employer]. Work Phone: Platelets bldOrdered By: Ross De Jesus on 06-12-2022 Platelets (Bld) [#/Vol] 277 10*3/uL 150-450 [facility] Serum or plasma calcium kelvin urement (mass/volume)Ordered By: Елена De Jesus on 06-12-2022 Calcium [Mass/Vol] 9.1 mg/dL 8.5-10.1 [facility] Serum or plasma cholesterol in HDL measurement (mass/volume)Ordered By: Елена De Jesus on 06-12-2022 Cholesterol in HDL [Mass/Vol] 50 mg/dL >40 [facility] Comment on above: The drugs N-Acetylcy steine and Metamizole may falsely depress this assay. Reference Range HDL <40 mg/dL Low HDL Cholesterol HDL >or= 60 mg/dL High HDL Cholesterol Serum or plasma cholesterol in VLDL measurement (mass/volume)Ordered By: Елена De Jesus on 06-12-2022 Cholesterol in VLDL [Mass/Vol] 66 mg/dL 5-40 [facility] Serum or plasma creatinine m easurement (mass/volume)Ordered By: Елена De Jesus on 06-12-2022 Creatinine [Mass/Vol] 0.72 mg/dL 0.55-1.02 [facility] Comment on above: The validity of the calculated GFR & GFRAA in patients over 70 years has not been determined. Clinical correlation is essential. Serum or plasma low density lipoprotein (LDL) cholesterol measurement (mass/volume)Ordered By: Елена De Jesus on 06-12-2022 Cholesterol in LDL [Mass/Vol] 65 mg/dL 0-130 [facility] Serum or plasma urea nitroge n measurement (mass/volume)Ordered By: Елена De Jesus on 06-12-2022 Urea nitrogen [Mass/Vol] 10 mg/dL 7-18 [facility] Thin prep Papanicolaou smear with manual screeningOrdered By: Елена De Jesus on 06-12-2022 Thin prep Papanicolaou smear with manual screening 7 5-15 [facility] Absolute lymphocyte countOrd ered By: Dr. Alexander on 05-18-2022 Lymphocytes Auto (Unsp spec) [#/Vol] 2.23 10*3/uL 0.83-4.51 [facility] Basophil percentageOrdered B y: Dr. Alexander on 05-18-2022 Basophils/100 WBC (Bld) 0.4 % 0-1 [facility] Chloride [Moles/Vol] 106 mmol/L 98-107 [facility] Eosinophils/100 WBC (Bld) 1.4 % 0-5 [facility] Glucose [Mass/Vol] 123 mg/dL 74-106 [facility] Comment on above: Fasting Glucose resu lt from 100 to 125 mg/dL suggests IMPAIRED HOMEOSTASIS per A.D.A. criteria. Neutrophils (Bld) [#/Vol] 4.7 10*3/uL 2.0-7.7 [facility] Neutrophils/100 WBC (Bld) 60.7 % 47-70 [facility] Potassium [Moles/Vol] 3.8 mmol/L 3.5-5.1 [facility] Sodium [Moles/Vol] 135 mmol/L 136-145 [facility] WBC (Bld) [#/Vol] 7.8 10*3/uL 4.4-11.0 [facility] Blood erythrocytes count (nu mber/volume)Ordered By: Dr. Alexander on 05-18-2022 RBC (Bld) [#/Vol] 4.62 10*6/uL 4.2-5.4 [facility] Blood hemoglobin measurement (mass/volume)Ordered By: Dr. Alexander on 05-18-2022 Hemoglobin (Bld) [Mass/Vol] 12.9 g/dL 12.0-15.0 [facility] Blood lymphocytes/100 leukoc ytesOrdered By: Dr. Alexander on 05-18-2022 Lymphocytes/100 WBC (Bld) 28.6 % 19-41 [facility] Blood monocytes/100 leukocyt esOrdered By: Dr. Alexander on 05-18-2022 Monocytes/100 WBC (Bld) 8.5 % 0-10 [facility] Blood platelet mean volumeOr dered By: Dr. Alexander on 05-18-2022 Platelet mean volume (Bld) [Entitic vol] 10.1 fL 6.2-12.0 [facility] Determination of erythrocyte mean corpuscular volume (MCV)Ordered By: Dr. Alexander on 05-18-2022 MCV (RBC) [Entitic vol] 85.5 fL 81-99 [facility] Hematocrit Auto (Bld) [Volum e fraction]Ordered By: Dr. Alexander on 05-18-2022 Hematocrit (Bld) [Volume fraction] 39.5 % 37-47 [facility] Influenza virus A and B and SARS-CoV-2 (COVID-19) Ag panel - Upper respiratory specimOrdered By: Dr. Alexander on 05-18-2022 SARS-CoV-2 (COVID-19) RNA APRIL+probe Ql (Resp) [facility] Laboratory - Chemistry and C hemistry - challengeOrdered By: Dr. Alexander on 05-18-2022 CO2 [Moles/Vol] 25.0 mmol/L 21.0-32.0 [facility] Natriuretic peptide B (Bld) [Mass/Vol] 6.5 pg/mL 0-100 [facility] Urea nitrogen/Creatinine [Mass ratio] 18.0 mg/mg 10-20 [facility] Laboratory - Hematology and Cell countsOrdered By: Dr. Alexander on 05-18-2022 Erythrocyte distribution width (RBC) [Entitic vol] 41.1 fL 35.1-43.9 [facility] Erythrocyte distribution width (RBC) [Ratio] 13.3 % 11.6-14.6 [facility] Immature granulocytes/100 WBC (Bld) 0.400 % 0.0-0.9 [facility] Comment on above: IG% - Immature Granu locytes (promyelocytes, myelocytes and metamyelocytes) > 1% indicates that a LEFT SHIFT is Present. MCH (RBC) [Entitic mass] 27.9 pg 27.0-32.0 [facility] Nucleated RBC/100 WBC (Bld) [Ratio] 0 % 0-5 [facility] MCHC Auto (RBC) [Mass/Vol]Or dered By: Dr. Alexander on 05-18-2022 MCHC (RBC) [Mass/Vol] 32.7 g/dL 32-36 [facility] No Panel InformationOrdered By: Dr. Alexander on 05-18-2022 D-Dimer Quantitative (PE/DVT) 2.07 FEU/ug/m 0.27-0.49 [facility] Comment on above: D-Dimer ELEVATED (>0 .49): Additional studies and clinicalassessments are indicated to conclude diagnosis of:Deep Vein Thrombosis (DVT) or Pulmonary Embolism (PE)CRITICAL VALUE VERIFIED. CALLED TO MEAGHAN GARCIA05/18/22 [id number] James Kahn.RESULTS READ BACK BY SAME . Estimated Creatinine Clearance Calc 73.55 ml/min [facility] Estimated GFR (MDRD) Amer 104 mL/min >60 [facility] Comment on above: GFR Calc Estimated GFR (MDRD) Non-Af Amer 86 mL/min >60 [facility] Comment on above: Non- GFR Calc Troponin I High Sensitivity < 3 pg/mL 3.0-54.0 [facility] Comment on above: Please Note: New Sobia t Units and Gender Specific Reference Ranges. For more information see Policy Stat Procedure [place] High Sensitivity Troponin (TNIH) and attachments. No Panel Informationon 05-18 7.8 K/mm3 Normal 4.4 - 11.0 K/mm3 [facility].; [facility], [facility]. Work Phone: 4.62 {M/mm3} Normal 4.2 - 5.4 {M/mm3} [facility].; [facility], [facility]. Work Phone: 12.9 g/dL Normal 12.0 - 15.0 g/dL [facility], [facility].; [facility], Inc[employer] Work Phone: 39.5 Normal 37 - 47 [facility].; [facility], [facility]. Work Phone: 85.5 fL Normal 81 - 99 fL [facility], [facility].; [facility], [facility]. Work Phone: 27.9 pg Normal 27.0 - 32.0 pg [facility], [facility].; [facility], Inc[employer] Work Phone: 32.7 g/dL Normal 32 - 36 g/dL [facility], [facility].; [facility], [facility]. Work Phone: 13.3 Normal 11.6 - 14.6 [facility], [facility].; [facility], Inc[employer] Work Phone: 41.1 fL Normal 35.1 - 43.9 fL [facility], [facility].; [facility], Inc. Work Phone: 233 K/mm3 Normal 150 - 450 K/mm3 [facility], [facility].; [facility], Inc. Work Phone: 10.1 fL Normal 6.2 - 12.0 fL [facility], Inc.; [facility], Inc[employer] Work Phone: 60.7 Normal 47 - 70 [facility], [facility].; [facility], [facility]. Work Phone: 28.6 Normal 19 - 41 [facility], [facility].; [facility], Inc[employer] Work Phone: 8.5 Normal 0 - 10 [facility], [facility].; [facility], Inc[employer] Work Phone: 1.4 Normal 0 - 5 [facility], Inc.; [facility], Inc[employer] Work Phone: 0.4 Normal 0 - 1 [facility], [facility].; [facility], Inc[employer] Work Phone: 0.400 Normal 0.0 - 0.9 [facility], [facility].; [facility], [facility]. Work Phone: 4.7 {X10_3/uL} Normal 2.0 - 7.7 {X10_3/uL} [facility], [facility].; [facility], Inc[employer] Work Phone: 2.23 {X10_3/uL} Normal 0.83 - 4.51 {X10_3/uL} [facility], Inc.; [facility], Inc[employer] Work Phone: 0 Normal 0 - 5 [facility].; [facility], Inc. Work Phone: 123 mg/dL Abnormal 74 - 106 mg/dL [facility].; [facility], Inc. Work Phone: 14 mg/dL Normal 7 - 18 mg/dL [facility].; [facility], Inc. Work Phone: 0.78 mg/dL Normal 0.55 - 1.02 mg/dL [facility], [facility].; [facility], Inc[employer] Work Phone: 86 mL/min Normal [facility].; [facility]. Work Phone: 104 mL/min Normal [facility].; [facility] Work Phone: 73.55 ml/min Normal [facility].; [facility], [facility]. Work Phone: 18.0 {RATIO} Normal 10 - 20 {RATIO} [facility].; [facility], [facility]. Work Phone: 9.0 mg/dL Normal 8.5 - 10.1 mg/dL [facility].; [facility]. Work Phone: 135 mmol/L Abnormal 136 - 145 mmol/L [facility].; [facility], [facility]. Work Phone: 3.8 mmol/L Normal 3.5 - 5.1 mmol/L [facility].; [facility], [facility]. Work Phone: 106 mmol/L Normal 98 - 107 mmol/L [facility].; [facility], [facility]. Work Phone: 25.0 mmol/L Normal 21.0 - 32.0 mmol/L [facility].; [facility]. Work Phone: 4 Abnormal 5 - 15 [facility].; [facility], [facility]. Work Phone: < 3 Abnormal 3.0 - 54.0 pg/mL [facility].; [facility], [facility]. Work Phone: 6.5 pg/mL Normal 0 - 100 pg/mL [facility].; [facility], [facility]. Work Phone: 2.07 {FEU/ug/m} Abnormal 0.27 - 0.49 {FEU/ug/m} [facility].; [facility] [employer] [facility]. Work Phone: See Note Normal [facility] CampusE-Mist [employer]; [facility] [employer] [facility] Work Phone: Platelets bldOrdered By: Dr. Alexander on 05-18-2022 Platelets (Bld) [#/Vol] 233 10*3/uL 150-450 [facility] Serum or plasma calcium kelvin urement (mass/volume)Ordered By: Dr. Alexander on 05-18-2022 Calcium [Mass/Vol] 9.0 mg/dL 8.5-10.1 [facility] Serum or plasma creatinine m easurement (mass/volume)Ordered By: Dr. Alexander on 05-18-2022 Creatinine [Mass/Vol] 0.78 mg/dL 0.55-1.02 [facility] Comment on above: The validity of the calculated GFR & GFRAA in patients over 70 years has not been determined. Clinical correlation is essential. Serum or plasma urea nitroge n measurement (mass/volume)Ordered By: Dr. Alexander on 05-18-2022 Urea nitrogen [Mass/Vol] 14 mg/dL 7-18 [facility] Thin prep Papanicolaou smear with manual screeningOrdered By: Dr. Alexander on 05-18-2022 Thin prep Papanicolaou smear with manual screening 4 5-15 [facility] .Auto Diffon 05-11-2022 Basophil, Absolute 0.1 10 3/mcL Normal 0.0-0.3 [facility] ([place]) Comment on above: Performed By: #### A JOLIE, CMP, GFR, CBC, PBNP, ADIFF #### [address] [address] Basophils/100 WBC (Bld) 1.6 % Normal 0.0-2.5 [facility] ([place]) Comment on above: Performed By: #### A JOLIE, CMP, GFR, CBC, PBNP, ADIFF #### [address] [address] Eosinophil, Absolute 0.1 10 3/mcL Normal 0.0-0.7 [facility] ([place]) Comment on above: Performed By: #### A JOLIE, CMP, GFR, CBC, PBNP, ADIFF #### [address] [address] Eosinophils/100 WBC (Bld) 1.7 % Normal 0.0-6.0 [facility] ([place]) Comment on above: Performed By: #### A JOLIE, CMP, GFR, CBC, PBNP, ADIFF #### [address] [address] Lymphocyte, Absolute 2.1 10 3/mcL Normal 0.9-4.3 [facility] ([place]) Comment on above: Performed By: #### A JOLIE, CMP, GFR, CBC, PBNP, ADIFF #### [address] [address] Lymphocytes/100 WBC (Bld) 30.7 % Normal 20.0-40.0 [facility] ([place]) Comment on above: Performed By: #### A JOLIE, CMP, GFR, CBC, PBNP, ADIFF #### [address] [address] Monocyte, Absolute 0.4 10 3/mcL Normal 0.1-1.4 [facility] ([place]) Comment on above: Performed By: #### A JOLIE, CMP, GFR, CBC, PBNP, ADIFF #### [address] [address] Monocytes/100 WBC (Bld) 5.7 % Normal 2.0-13.0 [facility] ([place]) Comment on above: Performed By: #### A JOLIE, CMP, GFR, CBC, PBNP, ADIFF #### [address] [address] Neutrophils/100 WBC (Bld) 60.3 % Normal 50.0-75.0 [facility] ([place]) Comment on above: Performed By: #### A JOLIE, CMP, GFR, CBC, PBNP, ADIFF #### [address] [address] .GFRon 05-11-2022 GFR Non- >60 Normal [facility] ([place]) Comment on above: Result Comment: GFR Population [...] JOLIE, CMP, GFR, CBC, PBNP, ADIFF #### [address] [address] GFR >60 Normal [facility] ([place]) Comment on above: Result Comment: GFR Population [...] JOLIE, CMP, GFR, CBC, PBNP, ADIFF #### [address] [address] .NEUABSon 05-11-2022 Neutrophil, Absolute 4.2 10 3/mcL Normal 2.3-8.1 [facility] ([place]) Comment on above: Performed By: #### A JOLIE, CMP, GFR, CBC, PBNP, ADIFF #### [address] [address] CBCon 05-11-2022 Erythrocyte distribution width (RBC) [Ratio] 14.5 % Normal 11.5-15.5 [facility] ([place]) Comment on above: Performed By: #### A JOLIE, CMP, GFR, CBC, PBNP, ADIFF #### [place] [id number] Hematocrit (Bld) [Volume fraction] 39.9 % Normal 34.0-46.0 [facility] ([place]) Comment on above: Performed By: #### A JOLIE, CMP, GFR, CBC, PBNP, ADIFF #### [address] [address] Hgb 13.3 G/dL Normal 12.0-16.0 [facility] ([place]) Comment on above: Performed By: #### A JOLIE, CMP, GFR, CBC, PBNP, ADIFF #### [address] [address] MCH (RBC) [Entitic mass] 28.2 pg Normal 27.0-33.0 [facility] ([place]) Comment on above: Performed By: #### A JOLIE, CMP, GFR, CBC, PBNP, ADIFF #### [place] [id number] MCHC 33.2 G/dL Normal 32.0-36.0 [facility] ([place]) Comment on above: Performed By: #### A JOLIE, CMP, GFR, CBC, PBNP, ADIFF #### [place] [id number] MCV (RBC) [Entitic vol] 85.0 fL Normal 80.0-99.0 [facility] ([place]) Comment on above: Performed By: #### A JOLIE, CMP, GFR, CBC, PBNP, ADIFF #### [place] [id number] Platelet 246 10 3/mcL Normal 150-450 [facility] ([place]) Comment on above: Performed By: #### A JOLIE, CMP, GFR, CBC, PBNP, ADIFF #### [place] [id number] Platelet mean volume (Bld) [Entitic vol] 9.3 fL Normal 6.6-10.5 [facility] ([place]) Comment on above: Performed By: #### A JOLIE, CMP, GFR, CBC, PBNP, ADIFF #### [address] [address] RBC 4.70 10 6/mcL Normal 4.10-5.30 [facility] ([place]) Comment on above: Performed By: #### A JOLIE, CMP, GFR, CBC, PBNP, ADIFF #### [place] [address] WBC 6.9 10 3/mcL Normal 4.5-10.8 [facility] ([place]) Comment on above: Performed By: #### A JOLIE, CMP, GFR, CBC, PBNP, ADIFF #### [address] [address] CMPon 05-11-2022 Albumin Level 3.5 G/dL Normal 3.2-4.8 [facility] ([place]) Comment on above: Performed By: #### A JOLIE, CMP, GFR, CBC, PBNP, ADIFF #### [place] [id number] Albumin/Globulin [Mass ratio] 1.1 {ratio} Normal 0.9-1.6 [facility] ([place]) Comment on above: Performed By: #### A JOLIE, CMP, GFR, CBC, PBNP, ADIFF #### [address] [address] ALP [Catalytic activity/Vol] 105 U/L Normal 38-126 [facility] ([place]) Comment on above: Performed By: #### A JOLIE, CMP, GFR, CBC, PBNP, ADIFF #### [address] [address] ALT [Catalytic activity/Vol] 15 U/L Normal 10-49 [facility] ([place] Comment on above: Performed By: #### A JOLIE, CMP, GFR, CBC, PBNP, ADIFF #### [place] [id number] AST [Catalytic activity/Vol] 15 U/L Normal 8-34 [facility] ([place] Comment on above: Performed By: #### A JOLIE, CMP, GFR, CBC, PBNP, ADIFF #### [address] [address] Bili Total 0.30 mg/dL Normal 0.20-1.20 [facility] ([place]) Comment on above: Result Comment: Use of this assay is not recommended for patients undergoing treatment with eltrombopag due to the potential for falsely elevated results. Performed By: #### A JOLIE, CMP, GFR, CBC, PBNP, ADIFF #### [address] [address] BUN/Creatinine Ratio 16.7 ratio Normal 10.0-22.0 [facility] ([place]) Comment on above: Performed By: #### A JOLIE, CMP, GFR, CBC, PBNP, ADIFF #### [address] [address] Calcium [Mass/Vol] 9.2 mg/dL Normal 8.7-10.4 [facility] ([place]) Comment on above: Performed By: #### A JOLIE, CMP, GFR, CBC, PBNP, ADIFF #### [address] [address] Chloride [Moles/Vol] 107 mmol/L Normal 98-110 [facility] ([place]) Comment on above: Performed By: #### A JOLIE, CMP, GFR, CBC, PBNP, ADIFF #### [address] [address] CO2 [Moles/Vol] 26 mmol/L Normal 22-32 [facility] ([place] Comment on above: Performed By: #### A JOLIE, CMP, GFR, CBC, PBNP, ADIFF #### [address] [address] Creatinine [Mass/Vol] 0.72 mg/dL Normal 0.50-1.20 [facility] ([place]) Comment on above: Performed By: #### A JOLIE, CMP, GFR, CBC, PBNP, ADIFF #### [address] [address] Electrolyte Balance 8.0 mEq/L Normal 4.0-15.0 [facility] ([place]) Comment on above: Performed By: #### A JOLIE, CMP, GFR, CBC, PBNP, ADIFF #### [address] [address] Globulin 3.3 G/dL Normal 1.5-3.8 [facility] ([place]) Comment on above: Performed By: #### A JOLIE, CMP, GFR, CBC, PBNP, ADIFF #### [address] [address] Glucose [Mass/Vol] 164 mg/dL High 70-110 [facility] ([place]) Comment on above: Performed By: #### A JOLIE, CMP, GFR, CBC, PBNP, ADIFF #### [address] [address] Potassium [Moles/Vol] 4.2 mmol/L Normal 3.5-5.0 [facility] ([place]) Comment on above: Performed By: #### A JOLIE, CMP, GFR, CBC, PBNP, ADIFF #### [address] [address] Sodium [Moles/Vol] 141 mmol/L Normal 136-145 [facility] ([place]) Comment on above: Performed By: #### A JOLIE, CMP, GFR, CBC, PBNP, ADIFF #### [address] [address] Total Protein 6.8 G/dL Normal 5.7-8.2 [facility] ([place]) Comment on above: Result Comment: No te - New Reference Range in effect 19 Performed By: #### A JOLIE, CMP, GFR, CBC, PBNP, ADIFF #### [address] [address] Urea nitrogen [Mass/Vol] 12.0 mg/dL Normal 8.0-22.0 [facility] ([place]) Comment on above: Performed By: #### A JOLIE, CMP, GFR, CBC, PBNP, ADIFF #### [address] [address] PBNPon 05-11-2022 N-Terminal proBNP <15 Normal 0-450 [facility] ([place]) Comment on above: Result Comment: NT-p roBNP results of less than 300 pg/mL effectively rules out acute congestive heart failure with 99% negative predictive value. Performed By: #### A JOLIE, CMP, GFR, CBC, PBNP, ADIFF #### [facility] [address] [place] [address] Laboratory - Chemistry and C hemistry - challengeon 05-10-2022 Albumin BCP dye [Mass/Vol] 3.5 g/dL Normal 3.2 - 4.8 g/dL [facility], [facility].; [facility] Albumin/Globulin [Mass ratio] 1.1 {ratio} Normal 0.9 - 1.6 {ratio} [facility], [facility].; [facility] ALP [Catalytic activity/Vol] 105 U/L Normal 38 - 126 U/L [facility], [facility].; [facility] ALT No additional P-5'-P [Catalytic activity/Vol] 15 U/L Normal 10 - 49 U/L [facility], [facility].; DICKENS - [facility] ALT With P-5'-P [Catalytic activity/Vol] 15 U/L Normal 10 - 49 U/L [facility] AST [Catalytic activity/Vol] 15 U/L Normal 8 - 34 U/L [facility], [facility].; [facility] [place] [employer] [facility] AST With P-5'-P [Catalytic activity/Vol] 15 U/L Normal 8 - 34 U/L [facility] Bilirubin [Mass/Vol] 0.30 mg/dL Normal 0.20 - 1.20 mg/dL [facility] Calcium [Mass/Vol] 9.2 mg/dL Normal 8.7 - 10. 4 mg/dL [facility]; [facility] Chloride [Moles/Vol] 107 mmol/L Normal 98 - 11 0 meq/L [facility]; [facility] CO2 [Moles/Vol] 26 mmol/L Normal 22 - 32 meq/L [facility]; [facility] Creatinine [Mass/Vol] 0.72 mg/dL Normal 0.50 - 1.20 mg/dL [facility]; [facility]. GFR/1.73 sq M.predicted among blacks MDRD (S/P/Bld) [Vol rate/Area] mL/min/{1.73_m2} Normal [facility]; [facility] Work Phone: GFR/1.73 sq M.predicted among non-blacks MDRD (S/P/Bld) [Vol rate/Area] mL/min/{1.73_m2} Normal [facility].; [facility]. Work Phone: Glucose [Mass/Vol] 164 mg/dL Abnormal 70 - 110 mg/dL [facility]; [facility]. Natriuretic peptide.B prohormone N-Terminal [Mass/Vol] <15 Normal 0 - 450 pg/mL [facility]; [facility] Potassium [Moles/Vol] 4.2 mmol/L Normal 3.5 - 5.0 meq/L [facility]; [facility] Protein [Mass/Vol] 6.8 g/dL Normal 5.7 - 8.2 g/dL [facility]; [facility] Sodium [Moles/Vol] 141 mmol/L Normal 136 - 145 meq/L [facility]; [facility] Urea nitrogen [Mass/Vol] 12.0 mg/dL Normal 8.0 - 22.0 mg/dL [facility]; [facility] Urea nitrogen/Creatinine [Mass ratio] 16.7 {ratio} Normal 10.0 - 22.0 {ratio} [facility].; [facility] Laboratory - Hematology and Cell countson 05-10-2022 Basophils (Bld) [#/Vol] 0.1 {10^3/mcL} Normal 0. 0 - 0.3 {10^3/mcL} [facility]; [facility] Work Phone: Basophils/100 WBC (Bld) 1.6 % Normal 0.0 - 2.5 % [facility]; [facility] Work Phone: Eosinophils (Bld) [#/Vol] 0.1 {10^3/mcL} Normal 0.0 - 0.7 {10^3/mcL} [facility]; [facility] Work Phone: Eosinophils/100 WBC (Bld) 1.7 % Normal 0.0 - 6.0 % [facility]; [facility] Work Phone: Erythrocyte distribution width (RBC) [Ratio] 14.5 % Normal 11.5 - 15.5 % [facility]; [facility] Hematocrit (Bld) [Volume fraction] 39.9 % Normal 34.0 - 46.0 % [facility]; [facility] Hemoglobin (Bld) [Mass/Vol] 13.3 g/dL Normal 12.0 - 16.0 g/dL [facility]; [facility] Lymphocytes (Bld) [#/Vol] 2.1 {10^3/mcL} Normal 0.9 - 4.3 {10^3/mcL} [facility].; [facility]. Work Phone: Lymphocytes/100 WBC (Bld) 30.7 % Normal 20.0 - 40.0 % [facility].; [facility] Work Phone: MCH (RBC) [Entitic mass] 28.2 pg Normal 27.0 - 33.0 pg [facility].; [facility]. MCHC (RBC) [Mass/Vol] 33.2 g/dL Normal 32.0 - 36.0 g/dL [facility].; [facility], [facility] MCV (RBC) [Entitic vol] 85.0 fL Normal 80.0 - 99.0 fL [facility].; [facility] Monocytes (Bld) [#/Vol] 0.4 {10^3/mcL} Normal 0. 1 - 1.4 {10^3/mcL} [facility].; [facility], [facility]. Work Phone: Monocytes/100 WBC (Bld) 5.7 % Normal 2.0 - 13.0 % [facility].; [facility]. Work Phone: Neutrophils (Bld) [#/Vol] 4.2 {10^3/mcL} Normal 2.3 - 8.1 {10^3/mcL} [facility].; [facility]. Work Phone: Neutrophils/100 WBC (Bld) 60.3 % Normal 50.0 - 75.0 % [facility].; [facility], [employer]. Work Phone: Platelet mean volume (Bld) [Entitic vol] 9.3 fL Normal 6.6 - 10.5 fL [facility] [employer] [facility], [employer].; [facility], [employer]. Platelets (Bld) [#/Vol] 246 {10^3/mcL} Normal 15 0 - 450 {10^3/mcL} [facility], [employer].; [facility] RBC (Bld) [#/Vol] 4.70 {10^6/mcL} Normal 4.10 - 5.30 {10^6/mcL} [facility] WBC (Bld) [#/Vol] 6.9 {10^3/mcL} Normal 4.5 - 10 .8 {10^3/mcL} [facility], [employer].; [facility] [employer] [facility], [employer]. No Panel Informationon 05-10 8.0 meq/L Normal 4.0 - 15.0 meq/L [facility] [employer] [facility].; [facility] 3.3 g/dL Normal 1.5 - 3.8 g/dL [facility] [employer] [facility].; [facility] 1.7 % Normal 0.0 - 6.0 % [facility] [employer] [facility].; [facility] [employer] [facility], [employer]. Work Phone: 1.6 % Normal 0.0 - 2.5 % [facility] [employer] [facility].; [facility] [employer] [facility], [employer]. Work Phone: 0.1 {10^3/mcL} Normal 0.0 - 0.7 {10^3/mcL} [facility] [employer] [facility].; [facility] [employer] [facility], [employer]. Work Phone: Deprecated Hgb A1c Bldon HbA1c (Bld) [Mass fraction] 5.9 % Abnormal 4.3 - 5.6 % [facility] [employer] [facility].; [facility] [employer] [facility], [employer]. Comment on above: Order Comment: Speci men Type: BLOOD SPECIMEN Ordering Facility: [facility] Address: [facility] [place] [address] Result Comment: [place] Diabetes Association guidelines indicate that patients with HgbA1c in the range 5.7-6.4% are at increased risk for development of diabetes, and intervention by lifestyle modification may be beneficial. HgbA1c greater or equal to 6.5% is considered diagnostic of diabetes. Performed By: #### [id number] #### [facility] CLIA [id number] [address] [place] [address] [place] HbA1c (Bld)on 03-08-2022 Average glucose Estimated from glycated hemoglobin (Bld) [Mass/Vol] 123 mg/dL Normal [facility] Comment on above: Order Comment: Romana rodgers Type: BLOOD SPECIMEN Ordering Facility: [facility] Address: [facility] [place] [address] Result Comment: eAG: (Estimated average glucose) is a calculated value from HgbA1c and is access representative of the average blood glucose level in the last 2-3 month period. Performed By: #### 5 [id number] #### [facility] CLIA [id number] [address] [place] [address] [place] Laboratory - Chemistry and C hemistry - challengeon 03-08-2022 Albumin [Mass/Vol] 1.0 g/dL Normal 0.9 - 1.6 [facility], [facility].; [facility] Albumin [Mass/Vol] 3.4 g/dL Normal 3.4 - 5.0 g/dL [facility], [facility].; [facility] ALT [Catalytic activity/Vol] 21 U/L Normal 14 - 59 U/L [facility], [facility].; [facility] ALT No additional P-5'-P [Catalytic activity/Vol] 21 U/L Normal 14 - 59 U/L [facility] AST [Catalytic activity/Vol] 20 U/L Normal 13 - 39 U/L [facility]; [facility] Bilirubin [Mass/Vol] 0.2 mg/dL Normal 0.2 - 1 .0 mg/dL [facility]; [facility] Calcium [Mass/Vol] 8.3 mg/dL Abnormal 8.5 - 10. 1 mg/dL [facility]; [facility] Chloride [Moles/Vol] 103 mmol/L Normal 98 - 10 7 mmol/L [facility]; [facility] Cholesterol [Mass/Vol] 180 mg/dL Normal 0 - 2 40 mg/dL [facility]; [facility] Cholesterol in HDL [Mass or moles/Vol] 47 mg/dL Normal 40 - 60 mg/dL [facility]; [facility] Cholesterol in LDL [Mass/Vol] 87 mg/dL Normal 0 - 129 mg/dL [facility]; [facility] Cholesterol.total/Christa sterol in HDL [Mass ratio] 3.8 {ratio} Normal 0.0 - 5.0 [facility]; [facility] CO2 [Moles/Vol] 28.9 mmol/L Normal 21.0 - 32.0 mmol/L [facility]; [facility] Creatinine [Mass/Vol] 0.79 mg/dL Normal 0.55 - 1.02 mg/dL [facility].; [facility], [facility]. GFR/1.73 sq M.predicted among blacks MDRD (S/P/Bld) [Vol rate/Area] mL/min/{1.73_m2} Normal 60 - 999 {ML/MINUTE} [facility].; [facility], [facility]. GFR/1.73 sq M.predicted MDRD (S/P/Bld) [Vol rate/Area] mL/min/{1.73_m2} Normal 60 - 999 {ML/MINUTE} [facility].; [facility], [facility]. Globulin (S) [Mass/Vol] 3.4 g/dL Normal 1.5 - 3.8 g/dL [facility].; [facility], [facility]. Glucose [Mass/Vol] 130 mg/dL Abnormal 74 - 106 mg/dL [facility], [facility].; [facility], [facility]. Potassium [Moles/Vol] 4.1 mmol/L Normal 3.5 - 5.1 mmol/L [facility].; [facility], [facility]. Protein [Mass/Vol] 6.8 g/dL Normal 6.4 - 8.2 g/dL [facility].; [facility], [facility]. Sodium [Moles/Vol] 140 mmol/L Normal 136 - 145 mmol/L [facility], [facility].; [facility], [facility]. Triglyceride [Mass/Vol] 230 mg/dL Abnormal 0 - 150 mg/dL [facility].; [facility], [facility]. Urea nitrogen [Mass/Vol] 13 mg/dL Normal 7 - 18 mg/dL [facility].; [facility], [facility]. Urea nitrogen/Creatinine [Mass ratio] 16 {ratio} Normal 0 - 30 {ratio} [facility].; [facility], [facility]. No Panel Informationon 03-08 43 {years} Normal [facility].; [facility] 12 mmol/L Normal 10 - 20 mmol/L [facility].; [facility] 99 U/L Normal 46 - 116 U/L [facility].; [facility] 123 mg/dL Normal [facility], [employer].; [facility] No Panel Informationon 08-29 0.08 {gm/24_Hr} Normal [facility], [facility]. Work Phone: 24 {hours} Normal [facility] Work Phone: 1030 mL Normal [facility].; [facility] Work Phone: See Note Normal [facility], [facility] Work Phone: 23.81 % Normal [facility], [facility] Work Phone: 5.48 % Normal [facility], [facility] Work Phone: 16.65 % Normal [facility], [facility] Work Phone: 36.49 % Normal [facility] Work Phone: 17.57 % Normal [facility], [facility] Work Phone: No definitive M protein is identified on protein electrophoresis. Normal [facility] Work Phone: 0.00 {g/24hr} Normal [facility].; [facility] Work Phone: Reviewed by Rikki Hightower MD, Ph.D ([id number]) Normal [facility], [facility].; [facility] Work Phone: A poorly defined region of restricted mobility is present that may represent an M protein. Abnormal [facility] [employer] [facility] Work Phone: See Note Normal [facility], [employer] [facility] Work Phone: Reviewed by Rikki Hightower MD, Ph.D ([phone]) [facility]. Work Phone: XR BONE SURVEY ROUTINEon [facility] B2 MICROGLOBULIN Bon 022 [id number] [Mass/Vol] 2.9 ug/mL High 0.8 - 2.4 mg/L [facility] Calcium.ionized [Moles/Vol]o n 08-23-2021 Calcium.ionized (Bld) [Mass/Vol] 1.25 mmol/L 1.08 - 1.30 mmol/L [facility] Calcium.ionized adjusted to pH 7.4 (Bld) [Moles/Vol] 1.23 mmol/L 1.08 - 1.30 mmol/L [facility] Comprehensive metabolic 2000 panelon 08-23-2021 Albumin [Mass/Vol] 4.0 g/dL 3.9 - 4.9 g/dL [facility] ALP [Catalytic activity/Vol] 85 U/L 34 - 123 U/L [facility] ALT [Catalytic activity/Vol] 11 U/L 7 - 38 U/L [facility] Anion gap [Moles/Vol] 11 mmol/L 9 - 18 mmol/L [facility] AST [Catalytic activity/Vol] 15 U/L 13 - 35 U/L [facility] Bilirubin [Mass/Vol] 0.2 mg/dL 0.2 - 1 .3 mg/dL [facility] Calcium [Mass/Vol] 9.0 mg/dL 8.5 - 10. 2 mg/dL [facility] Chloride [Moles/Vol] 105 mmol/L 97 - 10 5 mmol/L [facility] CO2 [Moles/Vol] 23 mmol/L 22 - 30 mmol/L [facility] Creatinine [Mass/Vol] 0.70 mg/dL 0.58 - 0.96 mg/dL [facility] Estimated Glomerular Filtration Rate 111 mL/min/1.73m >=60 mL/min/1.73m [facility] Glucose [Mass/Vol] 86 mg/dL 74 - 99 mg/dL [facility] Potassium [Moles/Vol] 4.2 mmol/L 3.7 - 5.1 mmol/L [facility] Protein [Mass/Vol] 6.8 g/dL 6.3 - 8.0 g/dL [facility] Sodium [Moles/Vol] 139 mmol/L 136 - 144 mmol/L [facility] Urea nitrogen [Mass/Vol] 9 mg/dL 7 - 21 mg/dL [facility] LD LACTATE DEHYDROon 022 LDH [Catalytic activity/Vol] 203 U/L 135 - 214 U/L [facility] PHOSPHORUS INORGANICon 08-23 Phosphate [Mass/Vol] 3.9 mg/dL 2.7 - 4 .8 mg/dL [facility] URIC ACID BLOODon 08-23-2021 Urate [Mass/Vol] 4.2 mg/dL 2.5 - 6.6 mg/dL [facility] Laboratory - Chemistry and C hemistry - challengeon 07-25-2021 Albumin [Mass/Vol] 0.6 g/dL Abnormal 0.9 - 1.6 [facility]; [facility] Albumin [Mass/Vol] 2.6 g/dL Abnormal 3.4 - 5.0 g/dL [facility]; [facility], [facility]. ALT [Catalytic activity/Vol] 25 U/L Normal 14 - 59 U/L [facility]; [facility], [facility]. ALT No additional P-5'-P [Catalytic activity/Vol] 25 U/L Normal 14 - 59 U/L [facility].; [facility], [facility]. AST [Catalytic activity/Vol] 37 U/L Normal 13 - 39 U/L [facility]; [facility], [facility]. Bilirubin [Mass/Vol] 0.5 mg/dL Normal 0.2 - 1 .0 mg/dL [facility]; [facility], [facility]. Bilirubin Ql (U) 1+ Abnormal [facility]; [facility], [facility] Calcium [Mass/Vol] 8.4 mg/dL Abnormal 8.5 - 10. 1 mg/dL [facility]; [facility], [facility] Chloride [Moles/Vol] 102 mmol/L Normal 98 - 10 7 mmol/L [facility].; [facility], [facility]. CO2 [Moles/Vol] 29.5 mmol/L Normal 21.0 - 32.0 mmol/L [facility]; [facility], [facility]. Creatinine [Mass/Vol] 0.83 mg/dL Normal 0.55 - 1.02 mg/dL [facility].; [facility], [facility] Free T4 [Mass/Vol] 2.62 ng/dL Abnormal 0.76 - 1. 46 ng/dL [facility].; [facility], [facility]. GFR/1.73 sq M.predicted among blacks MDRD (S/P/Bld) [Vol rate/Area] mL/min/{1.73_m2} Normal 60 - 999 {ML/MINUTE} [facility].; [facility], [facility]. GFR/1.73 sq M.predicted MDRD (S/P/Bld) [Vol rate/Area] mL/min/{1.73_m2} Normal 60 - 999 {ML/MINUTE} [facility].; [facility], [facility]. Globulin (S) [Mass/Vol] 4.1 g/dL Abnormal 1.5 - 3.8 g/dL [facility]; [facility], [facility]. Glucose [Mass/Vol] 144 mg/dL Abnormal 74 - 106 mg/dL [facility].; [facility], [facility]. Ketones Ql (U) TRACE Abnormal [facility]; [facility], [facility]. pH (U) 6.0 [pH] Normal [facility]; [facility], [facility]. Potassium [Moles/Vol] 3.0 mmol/L Abnormal 3.5 - 5.1 mmol/L [facility]; [facility], [facility] Protein [Mass/Vol] 6.7 g/dL Normal 6.4 - 8.2 g/dL [facility]; [facility], [facility]. Sodium [Moles/Vol] 139 mmol/L Normal 136 - 145 mmol/L [facility].; [facility], [facility] Specific gravity (U) [Rel density] 1.020 Normal [facility].; [facility], [facility]. TSH Qn 3.08 m[IU]/L Normal 0.35 - 3.74 {uIU/ml} [facility].; [facility], [facility] Urea nitrogen [Mass/Vol] 11 mg/dL Normal 7 - 18 mg/dL [facility].; [facility], [facility]. Urea nitrogen/Creatinine [Mass ratio] 13 {ratio} Normal 0 - 30 {ratio} [facility].; [facility], [facility]. Laboratory - Hematology and Cell countson 07-25-2021 Hemoglobin Ql (U) Negative Normal [facility].; [facility], [facility]. Laboratory - Specimen inform ationon 07-25-2021 Appearance (U) CLEAR Normal [facility].; [facility], [facility]. Color (U) NUNU Normal [facility].; [facility], [facility]. Laboratory - Urinalysison Glucose Test strip (U) [Mass/Vol] Negative Normal [facility].; [facility], [facility]. Leukocyte esterase Test strip Ql (U) 1+ Abnormal [facility].; [facility], [facility]. Nitrite Ql (U) Positive Abnormal [facility].; [facility], [facility]. Protein Ql (U) 1+ Abnormal [facility].; [facility], [facility]. No Panel Informationon 07-25 42 {years} Normal [facility].; [facility], [facility]. 11 mmol/L Normal 10 - 20 mmol/L [facility].; [facility] 66 U/L Normal 46 - 116 U/L [facility].; [facility], [facility]. 17 Normal [facility].; [facility], [facility]. Negative Normal [facility].; [facility], [facility]. 3.23 g/dL Abnormal 3.37 - 4.23 g/dL [facility].; [facility], [facility]. 0.24 g/dL Normal 0.18 - 0.31 g/dL [facility].; [facility], [facility]. 0.50 g/dL Abnormal 0.52 - 0.97 g/dL [facility].; [facility], [facility]. 1.01 g/dL Normal 0.84 - 1.36 g/dL [facility].; [facility], [facility]. 1.61 g/dL Abnormal 0.70 - 1.44 g/dL [facility].; [facility], [facility]. 0.41 g/dL Abnormal [facility].; [facility], [facility]. An M protein is identified on protein electrophoresis. Abnormal [facility].; [facility], [facility]. Gamma Fraction 1 Normal [facility].; [facility], [facility]. Reviewed by Karel Dangelo M.D. Normal [facility].; [facility] A reflex test for Monoclonal Protein analysis (immunofixation) has been ordered. [facility].; [facility] 3.1 pg/mL Normal 2.3 - 4.1 pg/mL [facility].; [facility], [facility]. MRI Cervical Spine w/oon MRI Cervical Spine w/o Submitted clinica l information: Patient complains of neck pain radiates [...] central canal stenosis. Referring physician: Please call [phone] if you would like to speak with the radiologist about this report. [id number] Normal [facility] Specialist Hemoglobin A1con 03-11-2021 Glucose [Mass/Vol] 131 mg/dL Normal [facility] Reference Lab Comment on above: Performed By: #### H BA1C #### [facility] Routine Lab [address] [place], [place] [address] HbA1c (Bld) [Mass fraction] 6.2 % High 4.3-5.6 [facility] Reference Lab Comment on above: Performed By: #### H BA1C #### [facility] Routine Lab [address] [place], [place] [address] Laboratory - Chemistry and C hemistry - challengeon 03-09-2021 Bilirubin Ql (U) 1+ Abnormal [facility], [employer].; [facility] Ketones Ql (U) Negative Normal [facility], [employer].; [facility] pH (U) 5.5 [pH] Normal [facility] Specific gravity (U) [Rel density] 1.030 Abnormal [facility] Laboratory - Hematology and Cell countson 03-09-2021 HbA1c (Bld) [Mass fraction] 6.2 % Abnormal 4.3 - 5.6 % [facility], [employer].; [employer] [facility], [facility] Hemoglobin Ql (U) Negative Normal [facility] Laboratory - Microbiology an d Antimicrobial susceptibilityon 03-09-2021 Bacteria identified Cx Nom (U) See Note Normal [facility] [employer] [facility].; [employer] [facility], [employer]. Work Phone: Laboratory - Specimen inform ationon 03-09-2021 Appearance (U) CLEAR Normal [facility] [employer] [facility] [employer] [facility], [facility] Color (U) YELLOW Normal [facility].; [facility] Laboratory - Urinalysison Glucose Test strip (U) [Mass/Vol] Negative Normal [facility] [employer] [facility].; [employer] [facility] [employer] [facility], [facility] Leukocyte esterase Test strip Ql (U) Negative Normal [facility].; [facility] [employer] [facility] Nitrite Ql (U) Negative Normal [facility], [employer].; [facility] [employer] [facility] Protein Ql (U) Negative Normal [facility].; [facility] No Panel Informationon 03-09 3.5 Normal [facility].; [facility] Negative Normal [facility].; [facility] 131 mg/dL Normal [facility].; [facility] Laboratory - Microbiology an d Antimicrobial susceptibilityon 02-15-2021 SARS-CoV-2 (COVID-19) Ag IA.rapid Ql (Resp) Positive Abnormal [facility] Work Phone: No Panel Informationon 02-15 Observation duration PASS Normal [facility].; [facility] Work Phone: Observation duration YES Normal [facility].; [facility] Work Phone: YES Normal [facility] [employer] [facility].; [facility] Work Phone: Hemoglobin A1con 10-28-2020 Glucose [Mass/Vol] 137 mg/dL Normal [facility] Reference Lab Comment on above: Performed By: #### H BA1C #### [facility] Routine Lab [address] [place] [id number] HbA1c (Bld) [Mass fraction] 6.4 % High 4.3-5.6 [facility] Reference Lab Comment on above: Performed By: #### H BA1C #### [facility] Routine Lab [address] [place], [place] [id number] Laboratory - Hematology and Cell countson 10-27-2020 HbA1c (Bld) [Mass fraction] 6.4 % Abnormal 4.3 - 5.6 % [facility], [employer].; [facility] No Panel Informationon 10-27 137 mg/dL Normal [facility].; [facility] Laboratory - Chemistry and C hemistry - challengeon 09-21-2020 Albumin [Mass/Vol] 3.5 g/dL Normal 3.4 - 5.0 g/dL [facility]; [facility] Work Phone: Albumin [Mass/Vol] 0.8 g/dL Abnormal 0.9 - 1.6 [facility]; [facility] Work Phone: ALT [Catalytic activity/Vol] 32 U/L Normal 14 - 59 U/L [facility]; [facility] Work Phone: AST [Catalytic activity/Vol] 17 U/L Normal 13 - 39 U/L [facility]; [facility] Work Phone: Bilirubin [Mass/Vol] 0.4 mg/dL Normal 0.2 - 1 .0 mg/dL [facility]; [facility] Work Phone: Calcium [Mass/Vol] 9.1 mg/dL Normal 8.5 - 10. 1 mg/dL [facility]; [facility] Work Phone: Chloride [Moles/Vol] 101 mmol/L Normal 98 - 10 7 mmol/L [facility]; [facility] Work Phone: CO2 [Moles/Vol] 28.8 mmol/L Normal 21.0 - 32.0 mmol/L [facility]; [facility] Work Phone: Creatinine [Mass/Vol] 0.83 mg/dL Normal 0.55 - 1.02 mg/dL [facility]; [facility] Work Phone: GFR/1.73 sq M.predicted among blacks MDRD (S/P/Bld) [Vol rate/Area] mL/min/{1.73_m2} Normal 60 - 999 {ML/MINUTE} [facility]; [facility]. Work Phone: GFR/1.73 sq M.predicted MDRD (S/P/Bld) [Vol rate/Area] mL/min/{1.73_m2} Normal 60 - 999 {ML/MINUTE} [facility].; [facility]. Work Phone: Globulin (S) [Mass/Vol] 4.4 g/dL Abnormal 1.5 - 3.8 g/dL [facility]; [facility], [facility]. Work Phone: Glucose [Mass/Vol] NORM Normal [facility]; [facility], [facility] Work Phone: Glucose [Mass/Vol] 114 mg/dL Abnormal 74 - 106 mg/dL [facility]; [facility]. Work Phone: Potassium [Moles/Vol] 3.9 mmol/L Normal 3.5 - 5.1 mmol/L [facility]; [facility], [facility]. Work Phone: Protein [Mass/Vol] 7.9 g/dL Normal 6.4 - 8.2 g/dL [facility]; [facility], [facility]. Work Phone: Sodium [Moles/Vol] 139 mmol/L Normal 136 - 145 mmol/L [facility]; [facility]. Work Phone: Urea nitrogen [Mass/Vol] 11 mg/dL Normal 7 - 18 mg/dL [facility]; [facility], [facility]. Work Phone: Urea nitrogen/Creatinine [Mass ratio] 13 {ratio} Normal 0 - 30 {ratio} [facility]; [facility] Work Phone: Laboratory - Hematology and Cell countson 09-21-2020 Basophils (Bld) [#/Vol] 0.00 {x10EE3/UL} Normal 0.00 - 0.10 {x10EE3/UL} [facility]; [facility] Work Phone: Basophils/100 WBC (Bld) 0.4 % Normal 0.0 - 2.0 % [facility]; [facility] Work Phone: Eosinophils (Bld) [#/Vol] 0.10 {x10EE3/UL} Normal 0.00 - 0.50 {x10EE3/UL} [facility].; [facility] Work Phone: Eosinophils/100 WBC (Bld) 1.3 % Normal 0.0 - 7.0 % [facility].; [facility] Work Phone: Erythrocyte distribution width (RBC) [Ratio] 14.0 % Normal 12.0 - 15.6 % [facility]; [facility] Work Phone: Hematocrit (Bld) [Volume fraction] 41.6 % Normal 34.0 - 46.0 % [facility].; [facility] Work Phone: Hemoglobin (Bld) [Mass/Vol] 13.7 g/dL Normal 12.0 - 16.0 g/dL [facility]; [facility] Work Phone: Lymphocytes (Bld) [#/Vol] 2.50 {x10EE3/UL} Normal 0.80 - 2.80 {x10EE3/UL} [facility]; [facility] Work Phone: Lymphocytes/100 WBC (Bld) 24.9 % Normal 20.0 - 45.0 % [facility]; [facility]. Work Phone: MCH (RBC) [Entitic mass] 28 pg Normal 27 - 33 pg [facility].; [facility]. Work Phone: MCHC (RBC) [Mass/Vol] 33 {X10_3} Normal 32 - 3 6 {X10_3} [facility].; [facility], [facility]. Work Phone: MCV (RBC) [Entitic vol] 86 fL Normal 80 - 99 fL [facility].; [facility], [facility]. Work Phone: Monocytes (Bld) [#/Vol] 0.70 {x10EE3/UL} Normal 0.20 - 1.00 {x10EE3/UL} [facility].; [facility], [facility]. Work Phone: Monocytes/100 WBC (Bld) 7.2 % Normal 0.0 - 10.0 % [facility]; [facility], [facility]. Work Phone: Neutrophils (Bld) [#/Vol] 6.60 {x10EE3/UL} Normal 1.50 - 7.10 {x10EE3/UL} [facility].; [facility], [facility]. Work Phone: Neutrophils/100 WBC (Bld) 66.2 % Normal 46.0 - 76.0 % [facility].; [facility], [facility]. Work Phone: Platelet mean volume (Bld) [Entitic vol] 9.1 fL Normal 6.6 - 10.5 fL [facility]; [facility]. Work Phone: Platelets (Bld) [#/Vol] 284 {x10EE3/UL} Normal 1 50 - 450 {x10EE3/UL} [employer] [facility].; [employer] [facility] [employer] [facility], Inc[facility] Work Phone: RBC (Bld) [#/Vol] 4.86 {x_10EE6/UL} Normal 4.10 - 5.30 {x_10EE6/UL} [employer] [facility], [facility].; [employer] [facility] [facility] Work Phone: WBC (Bld) [#/Vol] 10.0 {x_10EE3/UL} Normal 4.5 - 10.8 {x_10EE3/UL} [employer] [facility], [facility].; [employer] [facility] [employer] [facility] Work Phone: Laboratory - Microbiology an d Antimicrobial susceptibilityon 09-21-2020 Bacteria identified Cx Nom (U) See Note Normal [employer].; [employer] [facility] [employer] [facility] Work Phone: No Panel Informationon 09-21 N/A Normal [employer].; [employer] [facility] [employer] [facility] Work Phone: Void Normal [facility].; [employer] [facility] [employer] [facility] Work Phone: yellow Normal [employer].; [employer] [facility] [employer] [facility] Work Phone: clear Normal [employer].; [employer] [facility] [employer] [facility] Work Phone: 5 Abnormal [employer].; [employer] [facility] [employer] [facility] Work Phone: 15 Abnormal [facility] [employer] [facility] Inc.; [employer] [facility] [employer] [facility] Work Phone: Negative Normal [employer].; [employer] [facility] [employer] [facility] Work Phone: NORM Normal [facility] Inc.; [place] - [facility] Work Phone: 1.030 Normal [facility] [employer] [facility] Inc.; [place] - [facility] Work Phone: 25 Abnormal [facility], [facility].; [place] - [facility], [facility] Work Phone: SEE BELOW Normal [facility] [employer] [facility], [facility].; [place] - [facility] [employer] [facility] Work Phone: 6-10 Normal 0 - 5 [facility] Inc.; [place] - [facility] [employer] [facility] Work Phone: NONE Normal [facility] Inc.; [employer] - [facility] [employer] [facility] Work Phone: 3+ Normal [facility] [employer] [facility] Inc.; [place] - [facility] [employer] [facility] Work Phone: MANY Normal [facility] Inc.; [place] - [facility] [employer] [facility] Work Phone: 2+ Normal [facility] [employer] - [facility] [employer] [facility] Work Phone: 103 U/L Normal 46 - 116 U/L [facility].; [employer] - [facility] [employer] [facility], [facility] Work Phone: 13 mmol/L Normal 10 - 20 mmol/L [facility] HospitalTelun[facility].; [employer] - [facility] [employer] [facility]. Work Phone: 41 {years} Normal [facility] [employer] - [facility] [employer] [facility] Work Phone: Hemoglobin A1con 07-22-2020 Glucose [Mass/Vol] 148 mg/dL Normal [facility] Reference Lab Comment on above: Performed By: #### H BA1C #### [facility] Routine Lab [address] [place], [place] [address] HbA1c (Bld) [Mass fraction] 6.8 % High 4.3-5.6 [facility] Reference Lab Comment on above: Performed By: #### H BA1C #### [facility] Routine Lab [address] [place], [place] [address] Laboratory - Chemistry and C hemistry - challengeon 07-21-2020 Bilirubin Ql (U) Negative Normal [facility].; [facility], [facility] Ketones Ql (U) Negative Normal [facility].; [facility], [facility] pH (U) 6.0 [pH] Normal [facility].; [facility], [facility]. Specific gravity (U) [Rel density] 1.030 Abnormal [facility].; [employer] [facility], [employer]. Laboratory - Hematology and Cell countson 07-21-2020 HbA1c (Bld) [Mass fraction] 6.8 % Abnormal 4.3 - 5.6 % [facility].; [employer] [facility], Inc[facility] Hemoglobin Ql (U) Negative Normal [facility].; [employer] [facility], [employer]. Laboratory - Microbiology an d Antimicrobial susceptibilityon 07-21-2020 Bacteria identified Cx Nom (U) See Note Normal [facility].; [employer] [facility], [facility] Laboratory - Specimen inform ationon 07-21-2020 Appearance (U) CLOUDY Abnormal [facility].; [employer] [facility], Inc[facility] Color (U) NUNU Normal [facility] [employer] [facility].; [employer] [facility], [facility] Laboratory - Urinalysison Glucose Test strip (U) [Mass/Vol] TRACE Abnormal [facility] [employer] [facility].; [employer] [facility], Inc[facility] Leukocyte esterase Test strip Ql (U) 2+ Abnormal [facility].; [employer] [facility] [employer] [facility], [facility] Nitrite Ql (U) Negative Normal [facility].; [employer] [facility], Inc[facility] Protein Ql (U) Negative Normal [facility]; [facility] No Panel Informationon 07-21 0.2 Normal [facility]; [facility] Negative Normal [facility].; [facility] 148 mg/dL Normal [facility].; [facility] Laboratory - Chemistry and C hemistry - challengeon 07-16-2020 Cholesterol [Mass/Vol] 128 mg/dL Normal 0 - 2 40 mg/dL [facility]; [facility] Work Phone: Cholesterol in HDL [Mass or moles/Vol] 45 mg/dL Normal 40 - 60 mg/dL [facility]; [facility] Work Phone: Cholesterol in LDL [Mass/Vol] 65 mg/dL Normal 0 - 129 mg/dL [facility]; [facility]. Work Phone: Cholesterol.total/Christa sterol in HDL [Mass ratio] 2.8 {ratio} Normal 0.0 - 5.0 [facility]; [facility] Work Phone: Triglyceride [Mass/Vol] 91 mg/dL Normal 0 - 150 mg/dL [facility]; [facility]. Work Phone: Urea nitrogen (U) [Mass/Vol] mg/dL Normal 0.0 - 51.4 pg/mL [facility]; [facility]. Work Phone: Urea nitrogen (U) [Mass/Vol] 5.0 pg/mL Normal 0.0 - 51.4 pg/mL [facility].; [facility], [facility]. Work Phone: Laboratory - Chemistry and C hemistry - challengeon 07-15-2020 Albumin [Mass/Vol] 2.8 g/dL Abnormal 3.4 - 5.0 g/dL [facility]; [facility] Work Phone: Albumin [Mass/Vol] 0.7 g/dL Abnormal 0.9 - 1.6 [facility]; [facility] Work Phone: ALT [Catalytic activity/Vol] 23 U/L Normal 14 - 59 U/L [facility]; [facility] Work Phone: AST [Catalytic activity/Vol] 13 U/L Normal 13 - 39 U/L [facility]; [facility] Work Phone: Bilirubin [Mass/Vol] 0.2 mg/dL Normal 0.2 - 1 .0 mg/dL [facility]; [facility] Work Phone: Calcium [Mass/Vol] 8.5 mg/dL Normal 8.5 - 10. 1 mg/dL [facility]; [facility] Work Phone: Chloride [Moles/Vol] 102 mmol/L Normal 98 - 10 7 mmol/L [facility]; [facility] Work Phone: CO2 [Moles/Vol] 24.7 mmol/L Normal 21.0 - 32.0 mmol/L [facility]; [facility] Work Phone: Creatinine [Mass/Vol] 0.83 mg/dL Normal 0.55 - 1.02 mg/dL [facility]; [facility] Work Phone: GFR/1.73 sq M.predicted among blacks MDRD (S/P/Bld) [Vol rate/Area] mL/min/{1.73_m2} Normal 60 - 999 {ML/MINUTE} [facility]; [facility]. Work Phone: GFR/1.73 sq M.predicted MDRD (S/P/Bld) [Vol rate/Area] mL/min/{1.73_m2} Normal 60 - 999 {ML/MINUTE} [facility].; [facility], [facility]. Work Phone: Globulin (S) [Mass/Vol] 4.0 g/dL Abnormal 1.5 - 3.8 g/dL [facility]; [facility] Work Phone: Glucose [Mass/Vol] 152 mg/dL Abnormal 74 - 106 mg/dL [facility]; [facility]. Work Phone: Potassium [Moles/Vol] 3.5 mmol/L Normal 3.5 - 5.1 mmol/L [facility]; [facility]. Work Phone: Protein [Mass/Vol] 6.8 g/dL Normal 6.4 - 8.2 g/dL [facility]; [facility]. Work Phone: Sodium [Moles/Vol] 138 mmol/L Normal 136 - 145 mmol/L [facility]; [facility]. Work Phone: Urea nitrogen (U) [Mass/Vol] 4.2 pg/mL Normal 0.0 - 51.4 pg/mL [facility]; [facility], [facility]. Work Phone: Urea nitrogen (U) [Mass/Vol] 31 pg/mL Normal 0 - 125 pg/mL [facility]; [facility] Work Phone: Urea nitrogen [Mass/Vol] 13 mg/dL Normal 7 - 18 mg/dL [facility]; [facility] Work Phone: Urea nitrogen/Creatinine [Mass ratio] 16 {ratio} Normal 0 - 30 {ratio} [facility].; [facility]. Work Phone: Laboratory - Hematology and Cell countson 07-15-2020 Basophils (Bld) [#/Vol] 0.10 {x10EE3/UL} Normal 0.00 - 0.10 {x10EE3/UL} [facility]; [facility], [facility] Work Phone: Basophils/100 WBC (Bld) 1.5 % Normal 0.0 - 2.0 % [facility]; [facility]. Work Phone: Eosinophils (Bld) [#/Vol] 0.10 {x10EE3/UL} Normal 0.00 - 0.50 {x10EE3/UL} [facility].; [facility], [facility]. Work Phone: Eosinophils/100 WBC (Bld) 1.5 % Normal 0.0 - 7.0 % [facility]; [facility] Work Phone: Erythrocyte distribution width (RBC) [Ratio] 13.7 % Normal 12.0 - 15.6 % [facility].; [facility]. Work Phone: Hematocrit (Bld) [Volume fraction] 37.5 % Normal 34.0 - 46.0 % [facility]; [facility], [facility] Work Phone: Hemoglobin (Bld) [Mass/Vol] 12.7 g/dL Normal 12.0 - 16.0 g/dL [facility].; [facility]. Work Phone: Lymphocytes (Bld) [#/Vol] 1.70 {x10EE3/UL} Normal 0.80 - 2.80 {x10EE3/UL} [facility].; [facility]. Work Phone: Lymphocytes/100 WBC (Bld) 20.8 % Normal 20.0 - 45.0 % [facility].; [facility] Work Phone: MCH (RBC) [Entitic mass] 29 pg Normal 27 - 33 pg [facility].; [facility] Work Phone: MCHC (RBC) [Mass/Vol] 34 {X10_3} Normal 32 - 3 6 {X10_3} [facility].; [facility]. Work Phone: MCV (RBC) [Entitic vol] 86 fL Normal 80 - 99 fL [facility].; [facility] Work Phone: Monocytes (Bld) [#/Vol] 0.70 {x10EE3/UL} Normal 0.20 - 1.00 {x10EE3/UL} [facility].; [facility]. Work Phone: Monocytes/100 WBC (Bld) 8.4 % Normal 0.0 - 10.0 % [facility].; [facility]. Work Phone: Neutrophils (Bld) [#/Vol] 5.60 {x10EE3/UL} Normal 1.50 - 7.10 {x10EE3/UL} [facility].; [facility] Work Phone: Neutrophils/100 WBC (Bld) 67.8 % Normal 46.0 - 76.0 % [facility]; [facility] Work Phone: Platelet mean volume (Bld) [Entitic vol] 8.6 fL Normal 6.6 - 10.5 fL [facility]; [facility]. Work Phone: Platelets (Bld) [#/Vol] 251 {x10EE3/UL} Normal 1 50 - 450 {x10EE3/UL} [facility]; [facility]. Work Phone: RBC (Bld) [#/Vol] 4.38 {x_10EE6/UL} Normal 4.10 - 5.30 {x_10EE6/UL} [facility].; [facility], [facility]. Work Phone: WBC (Bld) [#/Vol] 8.3 {x_10EE3/UL} Normal 4.5 - 10.8 {x_10EE3/UL} [facility].; [facility], [facility]. Work Phone: No Panel Informationon 07-15 N/A Normal [facility]; [facility] Work Phone: 303 ng/mL Abnormal 0 - 230 ng/mL [facility]; [facility]. Work Phone: 115 U/L Normal 46 - 116 U/L [facility]; [facility] Work Phone: 15 mmol/L Normal 10 - 20 mmol/L [facility]; [facility], [facility]. Work Phone: 41 {years} Normal [facility]; [facility] Work Phone: Laboratory - Microbiology an d Antimicrobial susceptibilityon 06-04-2020 Bacteria identified Cx Nom (U) See Note Normal [facility] [employer] [facility] Laboratory - Chemistry and C hemistry - challengeon 05-28-2020 Glucose [Mass/Vol] NORM Normal [facility] [employer] [facility] Work Phone: Laboratory - Microbiology an d Antimicrobial susceptibilityon 05-28-2020 Bacteria identified Cx Nom (Bld) See Note Normal [facility] [employer] [facility], [facility] Work Phone: Bacteria identified Cx Nom (U) See Note Normal [facility] [employer] [facility].; [facility], [facility] Work Phone: No Panel Informationon 05-28 Void [facility] [employer] [facility].; [facility], [facility] Work Phone: p.yel Normal [facility] [employer] [facility].; [facility] Work Phone: clear Normal [facility] [employer] [facility].; [facility] Work Phone: 6 Normal [facility] [employer] [facility].; [facility] [employer] [facility] Work Phone: Negative Normal [facility] [employer] [facility].; [facility] Work Phone: 25 Abnormal [facility] [employer] [facility], [facility] Work Phone: NORM Normal [facility] [employer] [facility].; [facility] Work Phone: 1.020 Normal [facility] [employer] [facility].; [facility] [employer] [facility] Work Phone: 500 Abnormal [facility] [employer] [facility].; [facility], [facility] Work Phone: >50 Normal 0 - 5 [facility].; [facility], [facility]. Work Phone: 5-10 Normal 0 - 3 [facility].; [facility], [facility]. Work Phone: NONE Normal [facility].; [facility], [facility]. Work Phone: 3+ Normal [facility].; [facility], [facility]. Work Phone: MANY Normal [facility].; [facility], [facility]. Work Phone: TRACE Normal [facility].; [facility], [facility]. Work Phone: Laboratory - Chemistry and C hemistry - challengeon 05-27-2020 Albumin [Mass/Vol] 3.3 g/dL Abnormal 3.4 - 5.0 g/dL [facility].; [facility], [facility]. Work Phone: Albumin [Mass/Vol] 0.9 g/dL Normal 0.9 - 1.6 [facility].; [facility], [facility]. Work Phone: ALT [Catalytic activity/Vol] 27 U/L Normal 14 - 59 U/L [facility].; [facility], [facility]. Work Phone: AST [Catalytic activity/Vol] 20 U/L Normal 13 - 39 U/L [facility].; [facility], [facility]. Work Phone: Bilirubin [Mass/Vol] 0.3 mg/dL Normal 0.2 - 1 .0 mg/dL [facility].; [facility], [facility]. Work Phone: Calcium [Mass/Vol] 9.3 mg/dL Normal 8.5 - 10. 1 mg/dL [facility]; [facility]. Work Phone: Chloride [Moles/Vol] 102 mmol/L Normal 98 - 10 7 mmol/L [facility]; [facility]. Work Phone: CO2 [Moles/Vol] 24.0 mmol/L Normal 21.0 - 32.0 mmol/L [facility]; [facility]. Work Phone: Creatinine [Mass/Vol] 0.8 mg/dL Normal 0.5 - 1.0 mg/dL [facility]; [facility]. Work Phone: GFR/1.73 sq M.predicted among blacks MDRD (S/P/Bld) [Vol rate/Area] mL/min/{1.73_m2} Normal 60 - 999 {ML/MINUTE} [facility].; [facility], [facility]. Work Phone: GFR/1.73 sq M.predicted MDRD (S/P/Bld) [Vol rate/Area] mL/min/{1.73_m2} Normal 60 - 999 {ML/MINUTE} [facility].; [facility], [facility]. Work Phone: Globulin (S) [Mass/Vol] 3.8 g/dL Normal 1.5 - 3.8 g/dL [facility]; [facility], [facility]. Work Phone: Glucose [Mass/Vol] 160 mg/dL Abnormal 74 - 106 mg/dL [facility]; [facility], [facility]. Work Phone: Lactate [Mass/Vol] 2.2 mmol/L Abnormal 0.4 - 2.0 mmol/L [facility]; [facility] Work Phone: Potassium [Moles/Vol] 3.6 mmol/L Normal 3.5 - 5.1 mmol/L [facility]; [facility] Work Phone: Protein [Mass/Vol] 7.1 g/dL Normal 6.4 - 8.2 g/dL [facility]; [facility] Work Phone: Sodium [Moles/Vol] 137 mmol/L Normal 136 - 145 mmol/L [facility]; [facility] Work Phone: Urea nitrogen (U) [Mass/Vol] 4.9 pg/mL Normal 0.0 - 51.4 pg/mL [facility]; [facility] Work Phone: Urea nitrogen (U) [Mass/Vol] 23 pg/mL Normal 0 - 125 pg/mL [facility]; [facility] Work Phone: Urea nitrogen [Mass/Vol] 11 mg/dL Normal 7 - 18 mg/dL [facility]; [facility] Work Phone: Urea nitrogen/Creatinine [Mass ratio] 14 {ratio} Normal 0 - 30 {ratio} [facility]; [facility] Work Phone: Laboratory - Hematology and Cell countson 05-27-2020 Basophils (Bld) [#/Vol] 0.00 {x10EE3/UL} Normal 0.00 - 0.10 {x10EE3/UL} [facility]; [facility], [facility] Work Phone: Basophils/100 WBC (Bld) 0.5 % Normal 0.0 - 2.0 % [facility]; [facility] Work Phone: Eosinophils (Bld) [#/Vol] 0.20 {x10EE3/UL} Normal 0.00 - 0.50 {x10EE3/UL} [facility]; [facility] Work Phone: Eosinophils/100 WBC (Bld) 1.9 % Normal 0.0 - 7.0 % [facility]; [facility] Work Phone: Erythrocyte distribution width (RBC) [Ratio] 14.1 % Normal 12.0 - 15.6 % [facility]; [facility] Work Phone: Hematocrit (Bld) [Volume fraction] 39.2 % Normal 34.0 - 46.0 % [facility]; [facility] Work Phone: Hemoglobin (Bld) [Mass/Vol] 13.4 g/dL Normal 12.0 - 16.0 g/dL [facility]; [facility] Work Phone: Lymphocytes (Bld) [#/Vol] 1.60 {x10EE3/UL} Normal 0.80 - 2.80 {x10EE3/UL} [facility]; [facility] Work Phone: Lymphocytes/100 WBC (Bld) 17.7 % Abnormal 20.0 - 45.0 % [facility]; [facility] Work Phone: MCH (RBC) [Entitic mass] 29 pg Normal 27 - 33 pg [facility]; [facility] Work Phone: MCHC (RBC) [Mass/Vol] 34 {X10_3} Normal 32 - 3 6 {X10_3} [facility].; [facility] Work Phone: MCV (RBC) [Entitic vol] 86 fL Normal 80 - 99 fL E [facility]; [facility] Work Phone: Monocytes (Bld) [#/Vol] 0.60 {x10EE3/UL} Normal 0.20 - 1.00 {x10EE3/UL} [facility].; [facility]. Work Phone: Monocytes/100 WBC (Bld) 6.5 % Normal 0.0 - 10.0 % [facility]; [facility] Work Phone: Neutrophils (Bld) [#/Vol] 6.50 {x10EE3/UL} Normal 1.50 - 7.10 {x10EE3/UL} [facility]; [facility] Work Phone: Neutrophils/100 WBC (Bld) 73.4 % Normal 46.0 - 76.0 % [facility]; [facility] Work Phone: Platelet mean volume (Bld) [Entitic vol] 8.9 fL Normal 6.6 - 10.5 fL [facility]; [facility] Work Phone: Platelets (Bld) [#/Vol] 260 {x10EE3/UL} Normal 1 50 - 450 {x10EE3/UL} [facility].; [facility], [facility] Work Phone: RBC (Bld) [#/Vol] 4.58 {x_10EE6/UL} Normal 4.10 - 5.30 {x_10EE6/UL} [facility]; [facility], [facility] Work Phone: WBC (Bld) [#/Vol] 8.8 {x_10EE3/UL} Normal 4.5 - 10.8 {x_10EE3/UL} [facility].; [facility]. Work Phone: Laboratory - Microbiology an d Antimicrobial susceptibilityon 05-27-2020 Bacteria identified Cx Nom (Bld) See Note Normal [facility].; [facility]. Work Phone: SARS-CoV-2 (COVID-19) Ag IA.rapid Ql (Resp) Negative Normal [facility]. Work Phone: No Panel Informationon 05-27 Observation duration PASS Normal [facility].; [facility]. Work Phone: Observation duration YES Normal [facility].; [facility]. Work Phone: N/A Normal [facility].; [facility]. Work Phone: 299 ng/mL Abnormal 0 - 230 ng/mL [facility].; [facility]. Work Phone: YES Normal [facility].; [facility]. Work Phone: 117 U/L Abnormal 46 - 116 U/L [facility] [employer] [facility].; [facility]. Work Phone: 15 mmol/L Normal 10 - 20 mmol/L [facility].; [facility], [employer]. Work Phone: 41 {years} Normal [facility] [employer] [facility].; [facility]. Work Phone: Laboratory - Chemistry and C hemistry - challengeon 05-24-2020 Albumin [Mass/Vol] 3.2 g/dL Abnormal 3.4 - 5.0 g/dL [facility]; [facility] Work Phone: Albumin [Mass/Vol] 0.8 g/dL Abnormal 0.9 - 1.6 [facility]; [facility] Work Phone: ALT [Catalytic activity/Vol] 30 U/L Normal 14 - 59 U/L [facility]; [facility] Work Phone: AST [Catalytic activity/Vol] 18 U/L Normal 13 - 39 U/L [facility]; [facility] Work Phone: Bilirubin [Mass/Vol] 0.3 mg/dL Normal 0.2 - 1 .0 mg/dL [facility]; [facility] Work Phone: Calcium [Mass/Vol] 8.9 mg/dL Normal 8.5 - 10. 1 mg/dL [facility]; [facility] Work Phone: Chloride [Moles/Vol] 101 mmol/L Normal 98 - 10 7 mmol/L [facility]; [facility] Work Phone: CO2 [Moles/Vol] 29.7 mmol/L Normal 21.0 - 32.0 mmol/L [facility]; [facility] Work Phone: Creatinine [Mass/Vol] 0.8 mg/dL Normal 0.5 - 1.0 mg/dL [facility]; [facility], [facility] Work Phone: GFR/1.73 sq M.predicted among blacks MDRD (S/P/Bld) [Vol rate/Area] mL/min/{1.73_m2} Normal 60 - 999 {ML/MINUTE} [facility]; [facility] Work Phone: GFR/1.73 sq M.predicted MDRD (S/P/Bld) [Vol rate/Area] mL/min/{1.73_m2} Normal 60 - 999 {ML/MINUTE} [facility]; [facility]. Work Phone: Globulin (S) [Mass/Vol] 4.1 g/dL Abnormal 1.5 - 3.8 g/dL [facility]; [facility]. Work Phone: Glucose [Mass/Vol] NORM Normal [facility]; [facility] Work Phone: Glucose [Mass/Vol] 125 mg/dL Abnormal 74 - 106 mg/dL [facility]; [facility], [facility]. Work Phone: Potassium [Moles/Vol] 4.1 mmol/L Normal 3.5 - 5.1 mmol/L [facility]; [facility] Work Phone: Protein [Mass/Vol] 7.3 g/dL Normal 6.4 - 8.2 g/dL [facility]; [facility]. Work Phone: Sodium [Moles/Vol] 138 mmol/L Normal 136 - 145 mmol/L [facility]; [facility]. Work Phone: Urea nitrogen [Mass/Vol] 11 mg/dL Normal 7 - 18 mg/dL [facility]; [facility], [facility] Work Phone: Urea nitrogen/Creatinine [Mass ratio] 14 {ratio} Normal 0 - 30 {ratio} [facility]; [facility] Work Phone: Laboratory - Hematology and Cell countson 05-24-2020 Basophils (Bld) [#/Vol] 0.10 {x10EE3/UL} Normal 0.00 - 0.10 {x10EE3/UL} [facility]; [facility] Work Phone: Basophils/100 WBC (Bld) 0.9 % Normal 0.0 - 2.0 % [facility]; [facility] Work Phone: Eosinophils (Bld) [#/Vol] 0.10 {x10EE3/UL} Normal 0.00 - 0.50 {x10EE3/UL} [facility]; [facility]. Work Phone: Eosinophils/100 WBC (Bld) 1.6 % Normal 0.0 - 7.0 % [facility]; [facility] Work Phone: Erythrocyte distribution width (RBC) [Ratio] 13.7 % Normal 12.0 - 15.6 % [facility]; [facility] Work Phone: Hematocrit (Bld) [Volume fraction] 38.6 % Normal 34.0 - 46.0 % [facility].; [facility]. Work Phone: Hemoglobin (Bld) [Mass/Vol] 13.3 g/dL Normal 12.0 - 16.0 g/dL [facility]; [facility], [facility] Work Phone: Lymphocytes (Bld) [#/Vol] 2.00 {x10EE3/UL} Normal 0.80 - 2.80 {x10EE3/UL} [facility]; [facility] Work Phone: Lymphocytes/100 WBC (Bld) 22.1 % Normal 20.0 - 45.0 % [facility]; [facility] Work Phone: MCH (RBC) [Entitic mass] 29 pg Normal 27 - 33 pg [facility].; [facility] Work Phone: MCHC (RBC) [Mass/Vol] 34 {X10_3} Normal 32 - 3 6 {X10_3} [facility].; [facility]. Work Phone: MCV (RBC) [Entitic vol] 85 fL Normal 80 - 99 fL [facility]; [facility] Work Phone: Monocytes (Bld) [#/Vol] 0.80 {x10EE3/UL} Normal 0.20 - 1.00 {x10EE3/UL} [facility].; [facility], [facility]. Work Phone: Monocytes/100 WBC (Bld) 8.3 % Normal 0.0 - 10.0 % [facility].; [facility], [facility] Work Phone: Neutrophils (Bld) [#/Vol] 6.10 {x10EE3/UL} Normal 1.50 - 7.10 {x10EE3/UL} [facility].; [facility], [facility]. Work Phone: Neutrophils/100 WBC (Bld) 67.1 % Normal 46.0 - 76.0 % [facility].; [facility], [facility] Work Phone: Platelet mean volume (Bld) [Entitic vol] 8.2 fL Normal 6.6 - 10.5 fL [facility], [facility] Work Phone: Platelets (Bld) [#/Vol] 276 {x10EE3/UL} Normal 1 50 - 450 {x10EE3/UL} [facility] Work Phone: RBC (Bld) [#/Vol] 4.56 {x_10EE6/UL} Normal 4.10 - 5.30 {x_10EE6/UL} [facility] Work Phone: WBC (Bld) [#/Vol] 9.1 {x_10EE3/UL} Normal 4.5 - 10.8 {x_10EE3/UL} [facility] Work Phone: No Panel Informationon 05-24 Observation duration YES Normal [facility].; [facility], [facility] Work Phone: R Normal [facility] [employer] [facility].; [facility], [facility] Work Phone: yellow Normal [facility].; [facility], [facility] Work Phone: SL. CLOUDY Abnormal [facility], [facility] Work Phone: 7 Normal [facility] [employer] [facility] Work Phone: 15 Abnormal [facility] [employer] [facility].; [facility], [facility] Work Phone: Negative Normal [facility] Work Phone: 25 Abnormal [facility] [employer] [facility].; [facility] Work Phone: NORM Normal [facility].; [facility], [facility]. Work Phone: 1.015 Normal [facility].; [facility], [facility] Work Phone: 500 Abnormal [facility].; [facility], [facility]. Work Phone: 26-50 Normal 0 - 5 [facility].; [facility] Work Phone: 35-50 Normal 0 - 3 [facility].; [facility], [facility]. Work Phone: NONE Normal [facility].; [facility], [facility]. Work Phone: 2+ Normal [facility].; [facility] Work Phone: OCC Normal [facility].; [facility], [facility]. Work Phone: N/A Normal [facility].; [facility], [facility]. Work Phone: 111 U/L Normal 46 - 116 U/L [facility].; [facility]. Work Phone: 11 mmol/L Normal 10 - 20 mmol/L [facility].; [facility], [facility]. Work Phone: 41 {years} Normal [facility].; [facility] [facility] Work Phone: PASS [employer] [facility].; [facility], [employer]. Work Phone: Laboratory - Chemistry and C hemistry - challengeon 05-18-2020 Bilirubin Ql (U) Negative Normal [facility].; [facility], [employer] Ketones Ql (U) Negative Normal [facility].; [facility], [employer] pH (U) 7.0 [pH] Normal [facility], [facility].; [facility], [employer] Specific gravity (U) [Rel density] 1.015 Normal [facility].; [facility], [employer] Laboratory - Hematology and Cell countson 05-18-2020 Hemoglobin Ql (U) Negative Normal [facility].; [facility], [employer] Laboratory - Microbiology an d Antimicrobial susceptibilityon 05-18-2020 Bacteria identified Cx Nom (U) See Note Normal [facility].; [facility], [employer] Laboratory - Specimen inform ationon 05-18-2020 Appearance (U) CLOUDY Abnormal [facility].; [facility], [employer] Color (U) YELLOW Normal [facility].; [facility], [employer] Laboratory - Urinalysison Glucose Test strip (U) [Mass/Vol] Negative Normal [facility].; [facility], [facility]. Leukocyte esterase Test strip Ql (U) 3+ Abnormal [facility].; [employer] [facility], [facility] Nitrite Ql (U) Negative Normal [facility].; [facility], [employer] Protein Ql (U) TRACE Abnormal [facility].; [facility], [employer] No Panel Informationon 05-18 0.2 Normal [facility].; [facility], [facility] Positive Abnormal [facility].; [facility], [employer] Laboratory - Chemistry and C hemistry - challengeon 12-04-2019 CRP [Mass/Vol] 2.45 mg/dL Abnormal 0.00 - 1.00 mg/dL [facility].; [employer] [facility] [employer] [facility], Inc[facility] Work Phone: Laboratory - Coagulationon 1 aPTT Coag (Bld) [Time] 27.1 s Normal 25.4 - 38.4 {sec} [facility]; [facility]. Work Phone: No Panel Informationon 12-03 421 ng/mL Abnormal 0 - 230 ng/mL [facility]; [facility]. Work Phone: Laboratory - Chemistry and C hemistry - challengeon 12-03-2019 CRP [Mass/Vol] 3.60 mg/dL Abnormal 0.00 - 1.00 mg/dL [facility]; [facility], [facility]. Work Phone: No Panel Informationon 12-02 373 ng/mL Abnormal 0 - 230 ng/mL [facility]; [facility]. Work Phone: Laboratory - Chemistry and C hemistry - challengeon 12-02-2019 Albumin [Mass/Vol] 3.6 g/dL Normal 3.4 - 4.8 g/dL [facility]; [facility], [facility]. Work Phone: Albumin [Mass/Vol] 1.4 g/dL Normal 0.9 - 1.6 [facility]; [facility]. Work Phone: ALT [Catalytic activity/Vol] 32 U/L Normal 8 - 35 U/L [facility]; [facility]. Work Phone: AST [Catalytic activity/Vol] 31 U/L Normal 13 - 39 U/L [facility]; [facility], [facility]. Work Phone: Bilirubin [Mass/Vol] 0.3 mg/dL Normal 0.0 - 1 .5 mg/dL [facility]; [facility] Work Phone: Calcium [Mass/Vol] 8.5 mg/dL Abnormal 8.6 - 10. 2 mg/dL [facility]; [facility] Work Phone: Chloride [Moles/Vol] 103 mmol/L Normal 98 - 10 7 mmol/L [facility]; [facility] Work Phone: CO2 [Moles/Vol] 26.0 mmol/L Normal 21.0 - 31.0 mmol/L [facility]; [facility] Work Phone: Creatinine [Mass/Vol] 0.7 mg/dL Normal 0.6 - 1.2 mg/dL [facility]; [facility] Work Phone: GFR/1.73 sq M.predicted among blacks MDRD (S/P/Bld) [Vol rate/Area] mL/min/{1.73_m2} Normal 60 - 999 {ML/MINUTE} [facility]; [facility] Work Phone: GFR/1.73 sq M.predicted MDRD (S/P/Bld) [Vol rate/Area] mL/min/{1.73_m2} Normal 60 - 999 {ML/MINUTE} [facility]; [facility] Work Phone: Globulin (S) [Mass/Vol] 2.5 g/dL Normal 1.5 - 3.8 g/dL [facility]; [facility] Work Phone: Glucose [Mass/Vol] 115 mg/dL Abnormal 74 - 106 mg/dL [facility]; [facility] Work Phone: Glucose [Mass/Vol] NORM Normal [facility]; [facility] Work Phone: Lactate [Mass/Vol] 0.8 mmol/L Normal 0.5 - 2.0 mmol/L [facility]; [facility] Work Phone: Lipase [Catalytic activity/Vol] 21.0 U/L Normal 18.0 - 51.0 U/L [facility]; [facility] Work Phone: Natriuretic peptide B (Bld) [Mass/Vol] 14 pg/mL Normal 1 - 100 pg/mL [facility]; [facility] Work Phone: Potassium [Moles/Vol] 3.7 mmol/L Normal 3.5 - 5.1 mmol/L [facility]; [facility] Work Phone: Protein [Mass/Vol] 6.1 g/dL Abnormal 6.4 - 8.3 g/dL [facility]; [facility] Work Phone: Sodium [Moles/Vol] 138 mmol/L Normal 136 - 145 mmol/L [facility]; [facility] Work Phone: Troponin I.cardiac Qn 0.01 ng/mL Normal 0.00 - 0.05 ng/mL [facility]; [facility] Work Phone: Urea nitrogen [Mass/Vol] 7 mg/dL Normal 6 - 20 mg/dL [facility]; [facility] Work Phone: Urea nitrogen/Creatinine [Mass ratio] 10 {ratio} Normal 0 - 30 {ratio} [facility]; [facility] Work Phone: Laboratory - Hematology and Cell countson 12-02-2019 Basophils (Bld) [#/Vol] 0.00 {x10EE3/UL} Normal 0.00 - 0.10 {x10EE3/UL} [facility]; [facility] Work Phone: Basophils/100 WBC (Bld) 0.4 % Normal 0.0 - 2.0 % [facility]; [facility] Work Phone: Eosinophils (Bld) [#/Vol] 0.00 {x10EE3/UL} Normal 0.00 - 0.50 {x10EE3/UL} [facility]; [facility] Work Phone: Eosinophils/100 WBC (Bld) 0.1 % Normal 0.0 - 7.0 % [facility]; [facility] Work Phone: Erythrocyte distribution width (RBC) [Ratio] 15.0 % Normal 12.0 - 15.6 % [facility]; [facility] Work Phone: Hematocrit (Bld) [Volume fraction] 37.3 % Normal 34.0 - 46.0 % [facility]; [facility] Work Phone: Hemoglobin (Bld) [Mass/Vol] 12.7 g/dL Normal 12.0 - 16.0 g/dL [facility]; [facility] Work Phone: Lymphocytes (Bld) [#/Vol] 1.10 {x10EE3/UL} Normal 0.80 - 2.80 {x10EE3/UL} [facility]; [facility] Work Phone: Lymphocytes/100 WBC (Bld) 22.7 % Normal 20.0 - 45.0 % [facility].; [facility]. Work Phone: MCH (RBC) [Entitic mass] 28 pg Normal 27 - 33 pg [facility].; [facility], [facility]. Work Phone: MCHC (RBC) [Mass/Vol] 34 {X10_3} Normal 32 - 3 6 {X10_3} [facility].; [facility], [facility]. Work Phone: MCV (RBC) [Entitic vol] 83 fL Normal 80 - 99 fL [facility].; [facility], [facility]. Work Phone: Monocytes (Bld) [#/Vol] 0.40 {x10EE3/UL} Normal 0.20 - 1.00 {x10EE3/UL} [facility].; [facility], [facility]. Work Phone: Monocytes/100 WBC (Bld) 7.7 % Normal 0.0 - 10.0 % [facility].; [facility], [facility]. Work Phone: Neutrophils (Bld) [#/Vol] 3.20 {x10EE3/UL} Normal 1.50 - 7.10 {x10EE3/UL} [facility].; [facility], [facility]. Work Phone: Neutrophils/100 WBC (Bld) 69.1 % Normal 46.0 - 76.0 % [facility].; [facility], [facility]. Work Phone: Platelet mean volume (Bld) [Entitic vol] 8.4 fL Normal 6.6 - 10.5 fL [facility].; [facility], [facility]. Work Phone: Platelets (Bld) [#/Vol] 212 {x10EE3/UL} Normal 1 50 - 450 {x10EE3/UL} [facility] [employer] [facility].; [facility]. Work Phone: RBC (Bld) [#/Vol] 4.48 {x_10EE6/UL} Normal 4.10 - 5.30 {x_10EE6/UL} [facility] [employer] [facility].; [facility]. Work Phone: WBC (Bld) [#/Vol] 4.7 {x_10EE3/UL} Normal 4.5 - 10.8 {x_10EE3/UL} [facility] [employer] [facility].; [facility] [employer] [facility], [employer]. Work Phone: Laboratory - Microbiology an d Antimicrobial susceptibilityon 12-02-2019 Bacteria identified Cx Nom (Bld) See Note Normal [facility] [employer] [place] [employer] [facility]. Work Phone: Bacteria identified Cx Nom (U) See Note Normal [facility] [employer] [place] [employer] [facility] [employer] [facility]. Work Phone: FLUAV+FLUBV Ag Ql (Unsp spec) See Note Normal [facility] [employer].; [employer] [facility] [employer] [facility]. Work Phone: S. pyogenes Ag Ql (Throat) See Note Normal [facility] [employer].; [place] [employer] [facility] [employer] [facility]. Work Phone: SARS-CoV-2 (COVID-19) Ag IA.rapid Ql (Resp) Negative Normal [facility] [employer] [facility].; [place] [employer] [facility] [employer] [facility]. Work Phone: Streptococcus.beta-hemo lytic Org specific cx Ql (Unsp spec) See Note Normal [facility] [employer] [place] [employer] [facility] [employer] [facility], [employer]. Work Phone: No Panel Informationon 12-01 Observation duration PASS Normal [facility] [employer].; [facility], [facility] Work Phone: Observation duration YES Normal [facility] [employer] [facility].; [place] - [facility], [facility] Work Phone: Positive Abnormal [facility], [facility].; [place] - [facility], [facility] Work Phone: N/A Normal [facility].; [facility], [facility] Work Phone: 55 U/L Normal 38 - 126 U/L [facility], [facility].; [facility], [employer] Work Phone: 13 mmol/L Normal 10 - 20 mmol/L [facility], [facility].; [facility], [employer] Work Phone: 40 {years} Normal [facility].; [facility], [facility] Work Phone: UNSPECIFIED Normal [facility] Inc.; [facility], [facility] Work Phone: p.yel Normal [facility].; [facility], [facility] Work Phone: sl.cloudy Normal [facility] [employer] [facility] Inc.; [facility], [facility] Work Phone: 7 Normal [facility] [employer] [facility] Inc.; [place] - [facility], [facility] Work Phone: Negative Normal [facility] [employer] [facility].; [facility], [facility] Work Phone: NORM Normal [facility] [employer] [facility] Inc.; [facility], [employer] Work Phone: 1.010 Normal [facility] [employer] [facility] Inc.; [facility], [facility] Work Phone: NOT INDICATED [facility], [facility] Work Phone: Laboratory - Chemistry and C hemistry - challengeon 12-01-2019 Bilirubin Ql (U) 1+ Abnormal [facility], [facility].; [facility], [employer] Ketones Ql (U) Negative Normal [facility], [facility].; [facility], [employer] pH (U) 5.0 [pH] Normal [facility], [facility].; [facility], [employer] Specific gravity (U) [Rel density] 1.030 Abnormal [facility], [facility].; [facility], [employer] Laboratory - Hematology and Cell countson 12-01-2019 Hemoglobin Ql (U) Negative Normal [facility], [employer] [facility], [employer] Laboratory - Specimen inform ationon 12-01-2019 Appearance (U) CLEAR Normal [facility].; [facility], [employer] Color (U) YELLOW Normal [facility].; [facility], [employer] Laboratory - Urinalysison Glucose Test strip (U) [Mass/Vol] Negative Normal [facility].; [facility], [employer] Leukocyte esterase Test strip Ql (U) Negative Normal [facility], [facility].; [facility], [employer] Nitrite Ql (U) Negative Normal [facility], [facility].; [facility], [employer] Protein Ql (U) 1+ Abnormal [facility].; [facility], [employer] No Panel Informationon 11-30 0.2 Normal [facility].; [facility], [employer] Positive Abnormal [facility].; [facility], [employer] Laboratory - Chemistry and C hemistry - challengeon 08-13-2019 Albumin [Mass/Vol] 4.0 g/dL Normal 3.4 - 4.8 g/dL [facility], [employer] [facility], [facility] Work Phone: Albumin [Mass/Vol] 1.4 g/dL Normal 0.9 - 1.6 [facility]; [facility] Work Phone: ALT [Catalytic activity/Vol] 16 U/L Normal 8 - 35 U/L [facility]; [facility] Work Phone: AST [Catalytic activity/Vol] 16 U/L Normal 13 - 39 U/L [facility]; [facility] Work Phone: Bilirubin [Mass/Vol] 0.3 mg/dL Normal 0.0 - 1 .5 mg/dL [facility]; [facility] Work Phone: Calcium [Mass/Vol] 9.5 mg/dL Normal 8.6 - 10. 2 mg/dL [facility]; [facility] Work Phone: Chloride [Moles/Vol] 102 mmol/L Normal 98 - 10 7 mmol/L [facility]; [facility] Work Phone: CO2 [Moles/Vol] 25.5 mmol/L Normal 21.0 - 31.0 mmol/L [facility]; [facility] Work Phone: Creatinine [Mass/Vol] 0.8 mg/dL Normal 0.6 - 1.2 mg/dL [facility]; [facility] Work Phone: GFR/1.73 sq M.predicted among blacks MDRD (S/P/Bld) [Vol rate/Area] mL/min/{1.73_m2} Normal 60 - 999 {ML/MINUTE} [facility]; [facility] Work Phone: GFR/1.73 sq M.predicted MDRD (S/P/Bld) [Vol rate/Area] mL/min/{1.73_m2} Normal 60 - 999 {ML/MINUTE} [facility]; [facility] Work Phone: Globulin (S) [Mass/Vol] 2.8 g/dL Normal 1.5 - 3.8 g/dL [facility]; [facility] Work Phone: Glucose [Mass/Vol] NORM Normal [facility]; [facility] Work Phone: Glucose [Mass/Vol] 107 mg/dL Abnormal 74 - 106 mg/dL [facility]; [facility] Work Phone: Lipase [Catalytic activity/Vol] 18.0 U/L Normal 18.0 - 51.0 U/L [facility]; [facility] Work Phone: Potassium [Moles/Vol] 4.2 mmol/L Normal 3.5 - 5.1 mmol/L [facility]; [facility] Work Phone: Protein [Mass/Vol] 6.8 g/dL Normal 6.4 - 8.3 g/dL [facility]; [facility] Work Phone: Sodium [Moles/Vol] 137 mmol/L Normal 136 - 145 mmol/L [facility]; [facility] Work Phone: Urea nitrogen [Mass/Vol] 14 mg/dL Normal 6 - 20 mg/dL [facility]; [facility] Work Phone: Urea nitrogen/Creatinine [Mass ratio] 18 {ratio} Normal 0 - 30 {ratio} [facility].; [facility]. Work Phone: Laboratory - Hematology and Cell countson 08-13-2019 Basophils (Bld) [#/Vol] 0.10 {x10EE3/UL} Normal 0.00 - 0.10 {x10EE3/UL} [facility].; [facility]. Work Phone: Basophils/100 WBC (Bld) 1.0 % Normal 0.0 - 2.0 % [facility].; [facility] Work Phone: Eosinophils (Bld) [#/Vol] 0.20 {x10EE3/UL} Normal 0.00 - 0.50 {x10EE3/UL} [facility].; [facility]. Work Phone: Eosinophils/100 WBC (Bld) 1.8 % Normal 0.0 - 7.0 % [facility].; [facility]. Work Phone: Erythrocyte distribution width (RBC) [Ratio] 14.8 % Normal 12.0 - 15.6 % [facility].; [facility] Work Phone: Hematocrit (Bld) [Volume fraction] 36.7 % Normal 34.0 - 46.0 % [facility].; [facility]. Work Phone: Hemoglobin (Bld) [Mass/Vol] 12.4 g/dL Normal 12.0 - 16.0 g/dL [facility].; [facility], [facility]. Work Phone: Lymphocytes (Bld) [#/Vol] 2.10 {x10EE3/UL} Normal 0.80 - 2.80 {x10EE3/UL} [facility]; [facility]. Work Phone: Lymphocytes/100 WBC (Bld) 21.7 % Normal 20.0 - 45.0 % [facility]; [facility] Work Phone: MCH (RBC) [Entitic mass] 28 pg Normal 27 - 33 pg [facility].; [facility]. Work Phone: MCHC (RBC) [Mass/Vol] 34 {X10_3} Normal 32 - 3 6 {X10_3} [facility].; [facility]. Work Phone: MCV (RBC) [Entitic vol] 84 fL Normal 80 - 99 fL [facility].; [facility]. Work Phone: Monocytes (Bld) [#/Vol] 0.80 {x10EE3/UL} Normal 0.20 - 1.00 {x10EE3/UL} [facility].; [facility]. Work Phone: Monocytes/100 WBC (Bld) 8.0 % Normal 0.0 - 10.0 % [facility].; [facility]. Work Phone: Neutrophils (Bld) [#/Vol] 6.70 {x10EE3/UL} Normal 1.50 - 7.10 {x10EE3/UL} [facility].; [facility], [facility]. Work Phone: Neutrophils/100 WBC (Bld) 67.5 % Normal 46.0 - 76.0 % [facility].; [facility], [facility]. Work Phone: Platelet mean volume (Bld) [Entitic vol] 8.3 fL Normal 6.6 - 10.5 fL [facility].; [facility], [employer]. Work Phone: Platelets (Bld) [#/Vol] 309 {x10EE3/UL} Normal 1 50 - 450 {x10EE3/UL} [facility], [facility] Work Phone: RBC (Bld) [#/Vol] 4.40 {x_10EE6/UL} Normal 4.10 - 5.30 {x_10EE6/UL} [facility], [facility] Work Phone: WBC (Bld) [#/Vol] 9.9 {x_10EE3/UL} Normal 4.5 - 10.8 {x_10EE3/UL} [facility] [employer] [facility], Inc.; [employer] [facility] [employer] [facility], Inc[facility] Work Phone: Laboratory - Microbiology an d Antimicrobial susceptibilityon 08-13-2019 Bacteria identified Cx Nom (Bld) See Note Normal [facility] [employer] [facility].; [facility] [employer] [facility], [facility] Work Phone: Bacteria identified Cx Nom (U) See Note Normal [facility] [employer] [facility].; [facility], [facility] Work Phone: Bacteria identified Cx Nom (Wound) See Note Normal [facility] [employer] [facility].; [facility], [facility] Work Phone: No Panel Informationon 08-12 N/A Normal [facility] [employer] [facility].; [facility], [facility] Work Phone: Void Normal [facility] [employer] [facility].; [place] [employer] [facility], [employer]. Work Phone: nunu Normal [facility] [employer] [facility].; [facility], [facility] Work Phone: clear Normal [facility] [employer] [facility].; [place] [employer] [facility], [employer] Work Phone: 6 Normal [facility] [employer] [facility], Inc.; [place] - [facility], [facility] Work Phone: Negative Normal [facility] [employer] [facility], Inc.; [place] - [facility], Inc[facility] Work Phone: 5 Abnormal [facility], [facility].; [place] - [facility], [facility] Work Phone: NORM Normal [facility] [employer] [facility] [place] - [facility] Work Phone: 1.020 Normal [facility] [employer] [facility] [place] - [facility] Work Phone: 25 Abnormal [facility] [employer] [facility] [place] - [facility] Work Phone: SEE BELOW Normal [facility] [employer] [facility] [place] - [facility] [employer] [facility] Work Phone: 1-5 Normal 0 - 5 [facility] [employer] [facility] [place] [facility] Work Phone: 0-5 Normal 0 - 3 [facility] [employer] [facility] [place] - [facility] Work Phone: NONE Normal [facility] [employer] [facility] [place] [facility] Work Phone: 3+ Normal [facility] [place] [facility] Work Phone: MANY Normal [facility] [employer] [facility] [place] [facility] [employer] [facility] Work Phone: 2+ Normal [facility] [employer] [facility] [place] - [facility] [employer] [facility] Work Phone: 77 U/L Normal 38 - 126 U/L [facility] [employer] [facility] [place] - [facility] [employer] [facility] Work Phone: 14 mmol/L Normal 10 - 20 mmol/L [facility]; [facility] Work Phone: 40 {years} Normal [facility]; [facility] Work Phone: Laboratory - Hematology and Cell countson 08-03-2019 Basophils (Bld) [#/Vol] 0.00 {x10EE3/UL} Normal 0.00 - 0.10 {x10EE3/UL} [facility]; [facility] Work Phone: Basophils/100 WBC (Bld) 0.4 % Normal 0.0 - 2.0 % [facility]; [facility] Work Phone: Eosinophils (Bld) [#/Vol] 0.20 {x10EE3/UL} Normal 0.00 - 0.50 {x10EE3/UL} [facility]; [facility] Work Phone: Eosinophils/100 WBC (Bld) 2.2 % Normal 0.0 - 7.0 % [facility]; [facility] Work Phone: Erythrocyte distribution width (RBC) [Ratio] 14.5 % Normal 12.0 - 15.6 % [facility]; [facility] Work Phone: Hematocrit (Bld) [Volume fraction] 30.7 % Abnormal 34.0 - 46.0 % [facility]; [facility] Work Phone: Hemoglobin (Bld) [Mass/Vol] 10.5 g/dL Abnormal 12.0 - 16.0 g/dL [facility]; [facility] Work Phone: Lymphocytes (Bld) [#/Vol] 1.40 {x10EE3/UL} Normal 0.80 - 2.80 {x10EE3/UL} [facility].; [facility]. Work Phone: Lymphocytes/100 WBC (Bld) 15.4 % Abnormal 20.0 - 45.0 % [facility].; [facility]. Work Phone: MCH (RBC) [Entitic mass] 28 pg Normal 27 - 33 pg [facility].; [facility]. Work Phone: MCHC (RBC) [Mass/Vol] 34 {X10_3} Normal 32 - 3 6 {X10_3} [facility].; [facility], [facility]. Work Phone: MCV (RBC) [Entitic vol] 83 fL Normal 80 - 99 fL [facility]; [facility]. Work Phone: Monocytes (Bld) [#/Vol] 0.70 {x10EE3/UL} Normal 0.20 - 1.00 {x10EE3/UL} [facility].; [facility], [facility]. Work Phone: Monocytes/100 WBC (Bld) 8.0 % Normal 0.0 - 10.0 % [facility].; [facility], [facility]. Work Phone: Neutrophils (Bld) [#/Vol] 6.60 {x10EE3/UL} Normal 1.50 - 7.10 {x10EE3/UL} [facility].; [facility], [facility]. Work Phone: Neutrophils/100 WBC (Bld) 74.0 % Normal 46.0 - 76.0 % [facility]; [facility]. Work Phone: Platelet mean volume (Bld) [Entitic vol] 8.2 fL Normal 6.6 - 10.5 fL [facility]; [facility] Work Phone: Platelets (Bld) [#/Vol] 222 {x10EE3/UL} Normal 1 50 - 450 {x10EE3/UL} [facility]; [facility]. Work Phone: RBC (Bld) [#/Vol] 3.70 {x_10EE6/UL} Abnormal 4.10 - 5.30 {x_10EE6/UL} [facility].; [facility]. Work Phone: WBC (Bld) [#/Vol] 8.9 {x_10EE3/UL} Normal 4.5 - 10.8 {x_10EE3/UL} [facility].; [place] [employer] [facility]. Work Phone: No Panel Informationon 08-02 N/A Normal [facility]; [facility]. Work Phone: Laboratory - Hematology and Cell countson 08-02-2019 Basophils (Bld) [#/Vol] 0.00 {x10EE3/UL} Normal 0.00 - 0.10 {x10EE3/UL} [facility]; [facility] Work Phone: Basophils/100 WBC (Bld) 0.6 % Normal 0.0 - 2.0 % [facility] [employer] [facility]; [facility]. Work Phone: Eosinophils (Bld) [#/Vol] 0.10 {x10EE3/UL} Normal 0.00 - 0.50 {x10EE3/UL} [facility]; [facility]. Work Phone: Eosinophils/100 WBC (Bld) 1.7 % Normal 0.0 - 7.0 % [facility]; [facility] Work Phone: Erythrocyte distribution width (RBC) [Ratio] 14.6 % Normal 12.0 - 15.6 % [facility]; [facility] Work Phone: Hematocrit (Bld) [Volume fraction] 29.1 % Abnormal 34.0 - 46.0 % [facility]; [facility] Work Phone: Hemoglobin (Bld) [Mass/Vol] 9.7 g/dL Abnormal 12.0 - 16.0 g/dL [facility]; [facility] Work Phone: Lymphocytes (Bld) [#/Vol] 1.30 {x10EE3/UL} Normal 0.80 - 2.80 {x10EE3/UL} [facility]; [facility], [facility] Work Phone: Lymphocytes/100 WBC (Bld) 18.1 % Abnormal 20.0 - 45.0 % [facility]; [facility] Work Phone: MCH (RBC) [Entitic mass] 28 pg Normal 27 - 33 pg [facility]; [facility] Work Phone: MCHC (RBC) [Mass/Vol] 33 {X10_3} Normal 32 - 3 6 {X10_3} [facility]; [facility], [facility]. Work Phone: MCV (RBC) [Entitic vol] 84 fL Normal 80 - 99 fL E [facility]; [facility] Work Phone: Monocytes (Bld) [#/Vol] 0.60 {x10EE3/UL} Normal 0.20 - 1.00 {x10EE3/UL} [facility]; [facility]. Work Phone: Monocytes/100 WBC (Bld) 8.4 % Normal 0.0 - 10.0 % [facility].; [facility]. Work Phone: Neutrophils (Bld) [#/Vol] 5.20 {x10EE3/UL} Normal 1.50 - 7.10 {x10EE3/UL} [facility].; [facility]. Work Phone: Neutrophils/100 WBC (Bld) 71.2 % Normal 46.0 - 76.0 % [facility].; [facility]. Work Phone: Platelet mean volume (Bld) [Entitic vol] 8.2 fL Normal 6.6 - 10.5 fL [facility].; [facility]. Work Phone: Platelets (Bld) [#/Vol] 227 {x10EE3/UL} Normal 1 50 - 450 {x10EE3/UL} [facility].; [facility]. Work Phone: RBC (Bld) [#/Vol] 3.45 {x_10EE6/UL} Abnormal 4.10 - 5.30 {x_10EE6/UL} [facility].; [facility]. Work Phone: WBC (Bld) [#/Vol] 7.4 {x_10EE3/UL} Normal 4.5 - 10.8 {x_10EE3/UL} [facility].; [facility]. Work Phone: [facility] Informationon 08-01 N/A Normal [facility]; [facility]. Work Phone: Laboratory - Hematology and Cell countson 08-01-2019 Basophils (Bld) [#/Vol] 0.00 {x10EE3/UL} Normal 0.00 - 0.10 {x10EE3/UL} [facility].; [facility]. Work Phone: Basophils/100 WBC (Bld) 0.2 % Normal 0.0 - 2.0 % [facility]; [facility] Work Phone: Eosinophils (Bld) [#/Vol] 0.00 {x10EE3/UL} Normal 0.00 - 0.50 {x10EE3/UL} [facility].; [facility]. Work Phone: Eosinophils/100 WBC (Bld) 0.0 % Normal 0.0 - 7.0 % [facility]; [facility]. Work Phone: Erythrocyte distribution width (RBC) [Ratio] 14.5 % Normal 12.0 - 15.6 % [facility]; [facility] Work Phone: Hematocrit (Bld) [Volume fraction] 32.5 % Abnormal 34.0 - 46.0 % [facility]; [facility]. Work Phone: Hemoglobin (Bld) [Mass/Vol] 10.9 g/dL Abnormal 12.0 - 16.0 g/dL [facility]; [facility], [facility]. Work Phone: Lymphocytes (Bld) [#/Vol] 0.80 {x10EE3/UL} Normal 0.80 - 2.80 {x10EE3/UL} [facility]; [facility]. Work Phone: Lymphocytes/100 WBC (Bld) 5.9 % Abnormal 20.0 - 45.0 % [facility]; [facility] Work Phone: MCH (RBC) [Entitic mass] 28 pg Normal 27 - 33 pg [facility].; [facility]. Work Phone: MCHC (RBC) [Mass/Vol] 34 {X10_3} Normal 32 - 3 6 {X10_3} [facility].; [facility]. Work Phone: MCV (RBC) [Entitic vol] 83 fL Normal 80 - 99 fL [facility].; [facility]. Work Phone: Monocytes (Bld) [#/Vol] 1.00 {x10EE3/UL} Normal 0.20 - 1.00 {x10EE3/UL} [facility].; [facility], [facility]. Work Phone: Monocytes/100 WBC (Bld) 7.5 % Normal 0.0 - 10.0 % [facility]; [facility]. Work Phone: Neutrophils (Bld) [#/Vol] 11.10 {x10EE3/UL} Abnormal 1.50 - 7.10 {x10EE3/UL} [facility].; [facility], [facility]. Work Phone: Neutrophils/100 WBC (Bld) 86.4 % Abnormal 46.0 - 76.0 % [facility].; [facility], [facility]. Work Phone: Platelet mean volume (Bld) [Entitic vol] 8.5 fL Normal 6.6 - 10.5 fL [facility].; [facility]. Work Phone: Platelets (Bld) [#/Vol] 283 {x10EE3/UL} Normal 1 50 - 450 {x10EE3/UL} [facility].; [facility], [facility]. Work Phone: RBC (Bld) [#/Vol] 3.91 {x_10EE6/UL} Abnormal 4.10 - 5.30 {x_10EE6/UL} [facility].; [facility], [facility]. Work Phone: WBC (Bld) [#/Vol] 12.9 {x_10EE3/UL} Abnormal 4.5 - 10.8 {x_10EE3/UL} [facility].; [facility], [facility]. Work Phone: No Panel Informationon 07-31 N/A [facility].; [facility]. Work Phone: Laboratory - Blood bankon ABO and Rh group Nom (Bld BPU) Positive [facility].; [facility]. Work Phone: ABO group Nom (Bld) O [facility].; [facility]. Work Phone: ABO group Nom (Bld) Positive [facility].; [facility]. Work Phone: Blood group antibody screen Ql Negative [facility].; [facility]. Work Phone: Rh Nom (Bld) Positive [facility].; [facility], [facility]. Work Phone: No Panel Informationon 07-30 Observation duration YES [facility].; [facility], [facility]. Work Phone: Negative [facility].; [facility], [facility]. Work Phone: PASS [facility].; [facility], [facility]. Work Phone: [facility], [facility]. Work Phone: [phone] [facility].; [facility], [facility]. Work Phone: 08/25/2019 [facility].; [facility]. Work Phone: COMPATIBLE [facility].; [facility], [facility]. Work Phone: [phone] [facility].; [facility], [facility]. Work Phone: Laboratory - Blood bankon ABO group Nom (Bld) O [facility].; [facility]. Work Phone: Blood group antibody screen Ql Negative [facility].; [facility]. Work Phone: Rh Nom (Bld) Positive [facility].; [facility], [facility]. Work Phone: Laboratory - Chemistry and C hemistry - challengeon 07-29-2019 Calcium [Mass/Vol] 9.3 mg/dL Normal 8.6 - 10. 2 mg/dL [facility].; [facility], [facility]. Work Phone: Chloride [Moles/Vol] 101 mmol/L Normal 98 - 10 7 mmol/L [facility]; [facility] Work Phone: CO2 [Moles/Vol] 24.0 mmol/L Normal 21.0 - 31.0 mmol/L [facility]; [facility] Work Phone: Creatinine [Mass/Vol] 0.7 mg/dL Normal 0.6 - 1.2 mg/dL [facility]; [facility] Work Phone: GFR/1.73 sq M.predicted among blacks MDRD (S/P/Bld) [Vol rate/Area] mL/min/{1.73_m2} Normal 60 - 999 {ML/MINUTE} [facility]; [facility] Work Phone: GFR/1.73 sq M.predicted MDRD (S/P/Bld) [Vol rate/Area] mL/min/{1.73_m2} Normal 60 - 999 {ML/MINUTE} [facility].; [facility]. Work Phone: Glucose [Mass/Vol] 162 mg/dL Abnormal 74 - 106 mg/dL [facility]; [facility]. Work Phone: Potassium [Moles/Vol] 3.9 mmol/L Normal 3.5 - 5.1 mmol/L [facility]; [facility] Work Phone: Sodium [Moles/Vol] 134 mmol/L Abnormal 136 - 145 mmol/L [facility]; [facility] Work Phone: Urea nitrogen [Mass/Vol] 11 mg/dL Normal 6 - 20 mg/dL [facility]; [facility] Work Phone: Laboratory - Hematology and Cell countson 07-29-2019 Basophils (Bld) [#/Vol] 0.10 {x10EE3/UL} Normal 0.00 - 0.10 {x10EE3/UL} [facility]; [facility] Work Phone: Basophils/100 WBC (Bld) 0.6 % Normal 0.0 - 2.0 % [facility]; [facility] Work Phone: Eosinophils (Bld) [#/Vol] 0.10 {x10EE3/UL} Normal 0.00 - 0.50 {x10EE3/UL} [facility]; [facility] Work Phone: Eosinophils/100 WBC (Bld) 1.3 % Normal 0.0 - 7.0 % [facility]; [facility] Work Phone: Erythrocyte distribution width (RBC) [Ratio] 14.6 % Normal 12.0 - 15.6 % [facility]; [facility] Work Phone: Hematocrit (Bld) [Volume fraction] 39.1 % Normal 34.0 - 46.0 % [facility]; [facility] Work Phone: Hemoglobin (Bld) [Mass/Vol] 13.1 g/dL Normal 12.0 - 16.0 g/dL [facility]; [facility]. Work Phone: Lymphocytes (Bld) [#/Vol] 1.60 {x10EE3/UL} Normal 0.80 - 2.80 {x10EE3/UL} [facility].; [facility], [facility]. Work Phone: Lymphocytes/100 WBC (Bld) 18.1 % Abnormal 20.0 - 45.0 % [facility]; [facility] Work Phone: MCH (RBC) [Entitic mass] 28 pg Normal 27 - 33 pg [facility].; [facility] Work Phone: MCHC (RBC) [Mass/Vol] 34 {X10_3} Normal 32 - 3 6 {X10_3} [facility].; [facility]. Work Phone: MCV (RBC) [Entitic vol] 83 fL Normal 80 - 99 fL [facility].; [facility]. Work Phone: Monocytes (Bld) [#/Vol] 0.60 {x10EE3/UL} Normal 0.20 - 1.00 {x10EE3/UL} [facility].; [facility]. Work Phone: Monocytes/100 WBC (Bld) 6.6 % Normal 0.0 - 10.0 % [facility].; [facility]. Work Phone: Neutrophils (Bld) [#/Vol] 6.60 {x10EE3/UL} Normal 1.50 - 7.10 {x10EE3/UL} [facility].; [facility]. Work Phone: Neutrophils/100 WBC (Bld) 73.4 % Normal 46.0 - 76.0 % [facility].; [facility]. Work Phone: Platelet mean volume (Bld) [Entitic vol] 8.6 fL Normal 6.6 - 10.5 fL [facility] [employer] [facility].; [facility]. Work Phone: Platelets (Bld) [#/Vol] 273 {x10EE3/UL} Normal 1 50 - 450 {x10EE3/UL} [facility].; [facility]. Work Phone: RBC (Bld) [#/Vol] 4.70 {x_10EE6/UL} Normal 4.10 - 5.30 {x_10EE6/UL} [facility].; [facility] Work Phone: WBC (Bld) [#/Vol] 9.0 {x_10EE3/UL} Normal 4.5 - 10.8 {x_10EE3/UL} [facility] [employer] [facility], [employer] Work Phone: No Panel Informationon 07-28 1 % Normal 0 - 5 % [facility] [employer] [facility].; [facility], [employer]. Work Phone: 61 % Normal 47 - 70 % [facility] [employer] [facility].; [facility], [employer]. Work Phone: 25 % Normal 20 - 40 % [facility] [employer] [facility].; [facility], [employer]. Work Phone: 10 % Abnormal 0 - 8 % [facility] [employer] [facility].; [facility] Work Phone: 3.0 % Normal 0 - 4 % [facility].; [facility] Work Phone: NORMAL Normal [facility] [employer] [facility].; [facility] [employer] [facility], [employer]. Work Phone: 13 mmol/L Normal 10 - 20 mmol/L [facility].; [facility] [employer] [facility] [employer]. Work Phone: 40 {years} Normal [facility] [employer] [facility].; [facility] [employer] [facility] Work Phone: Laboratory - Blood bankon ABO group Nom (Bld) O Normal [facility].; [facility] Work Phone: Blood group antibody screen Ql Negative Normal [facility]; [facility] Work Phone: Rh Nom (Bld) Positive Normal [facility].; [facility] Work Phone: Laboratory - Chemistry and C hemistry - challengeon 05-15-2019 Calcium [Mass/Vol] 9.4 mg/dL Normal 8.6 - 10. 2 mg/dL [facility]; [facility] Work Phone: Chloride [Moles/Vol] 102 mmol/L Normal 98 - 10 7 mmol/L [facility].; [facility] Work Phone: CO2 [Moles/Vol] 22.6 mmol/L Normal 21.0 - 31.0 mmol/L [facility].; [facility]. Work Phone: Creatinine [Mass/Vol] 0.7 mg/dL Normal 0.6 - 1.2 mg/dL [facility].; [facility] Work Phone: GFR/1.73 sq M.predicted among blacks MDRD (S/P/Bld) [Vol rate/Area] mL/min/{1.73_m2} Normal 60 - 999 {ML/MINUTE} [facility].; [facility], [facility]. Work Phone: GFR/1.73 sq M.predicted MDRD (S/P/Bld) [Vol rate/Area] mL/min/{1.73_m2} Normal 60 - 999 {ML/MINUTE} [facility].; [facility] [facility], [facility]. Work Phone: Glucose [Mass/Vol] 134 mg/dL Abnormal 74 - 106 mg/dL [facility]; [facility] Work Phone: Potassium [Moles/Vol] 4.1 mmol/L Normal 3.5 - 5.1 mmol/L [facility]; [facility] Work Phone: Sodium [Moles/Vol] 135 mmol/L Abnormal 136 - 145 mmol/L [facility]; [facility]. Work Phone: Urea nitrogen [Mass/Vol] 11 mg/dL Normal 6 - 20 mg/dL [facility]; [facility] Work Phone: Laboratory - Hematology and Cell countson 05-15-2019 Basophils (Bld) [#/Vol] 0.10 {x10EE3/UL} Normal 0.00 - 0.10 {x10EE3/UL} [facility]; [facility] Work Phone: Basophils/100 WBC (Bld) 0.7 % Normal 0.0 - 2.0 % [facility]; [facility]. Work Phone: Eosinophils (Bld) [#/Vol] 0.20 {x10EE3/UL} Normal 0.00 - 0.50 {x10EE3/UL} [facility]; [facility]. Work Phone: Eosinophils/100 WBC (Bld) 1.8 % Normal 0.0 - 7.0 % [facility]; [facility] Work Phone: Erythrocyte distribution width (RBC) [Ratio] 14.8 % Normal 12.0 - 15.6 % [facility]; [facility] Work Phone: Hematocrit (Bld) [Volume fraction] 42.0 % Normal 34.0 - 46.0 % [facility]; [facility]. Work Phone: Hemoglobin (Bld) [Mass/Vol] 13.8 g/dL Normal 12.0 - 16.0 g/dL [facility].; [facility], [facility]. Work Phone: Lymphocytes (Bld) [#/Vol] 1.70 {x10EE3/UL} Normal 0.80 - 2.80 {x10EE3/UL} [facility].; [facility], [facility]. Work Phone: Lymphocytes/100 WBC (Bld) 20.0 % Normal 20.0 - 45.0 % [facility].; [facility], [facility]. Work Phone: MCH (RBC) [Entitic mass] 27 pg Normal 27 - 33 pg [facility]; [facility]. Work Phone: MCHC (RBC) [Mass/Vol] 33 {X10_3} Normal 32 - 3 6 {X10_3} [facility].; [facility], [facility]. Work Phone: MCV (RBC) [Entitic vol] 83 fL Normal 80 - 99 fL [facility]; [facility], [facility]. Work Phone: Monocytes (Bld) [#/Vol] 0.70 {x10EE3/UL} Normal 0.20 - 1.00 {x10EE3/UL} [facility].; [facility], [facility]. Work Phone: Monocytes/100 WBC (Bld) 8.6 % Normal 0.0 - 10.0 % [facility]; [facility], [facility] Work Phone: Neutrophils (Bld) [#/Vol] 5.90 {x10EE3/UL} Normal 1.50 - 7.10 {x10EE3/UL} [facility]; [facility]. Work Phone: Neutrophils/100 WBC (Bld) 68.9 % Normal 46.0 - 76.0 % [facility].; [facility]. Work Phone: Platelet mean volume (Bld) [Entitic vol] 9.1 fL Normal 6.6 - 10.5 fL [facility].; [facility]. Work Phone: Platelets (Bld) [#/Vol] 302 {x10EE3/UL} Normal 1 50 - 450 {x10EE3/UL} [facility].; [facility]. Work Phone: RBC (Bld) [#/Vol] 5.06 {x_10EE6/UL} Normal 4.10 - 5.30 {x_10EE6/UL} [facility]. Work Phone: WBC (Bld) [#/Vol] 8.5 {x_10EE3/UL} Normal 4.5 - 10.8 {x_10EE3/UL} [facility].; [facility], [facility]. Work Phone: No Panel Informationon 05-14 15 mmol/L Normal 10 - 20 mmol/L [facility]; [facility]. Work Phone: 40 {years} Normal [facility].; [facility]. Work Phone: N/A Normal [facility]; [facility] Work Phone: Laboratory - Chemistry and C hemistry - challengeon 04-01-2019 Albumin [Mass/Vol] 4.1 g/dL Normal 3.4 - 4.8 g/dL [facility]; [facility] Work Phone: Albumin [Mass/Vol] 1.3 g/dL Normal 0.9 - 1.6 [facility]; [facility] Work Phone: ALT [Catalytic activity/Vol] 14 U/L Normal 8 - 35 U/L [facility]; [facility] Work Phone: AST [Catalytic activity/Vol] 15 U/L Normal 13 - 39 U/L [facility]; [facility] Work Phone: Bilirubin [Mass/Vol] 0.3 mg/dL Normal 0.0 - 1 .5 mg/dL [facility]; [facility] Work Phone: Calcium [Mass/Vol] 9.1 mg/dL Normal 8.6 - 10. 2 mg/dL [facility]; [facility] Work Phone: Chloride [Moles/Vol] 103 mmol/L Normal 98 - 10 7 mmol/L [facility]; [facility] Work Phone: CO2 [Moles/Vol] 23.4 mmol/L Normal 21.0 - 31.0 mmol/L [facility]; [facility] Work Phone: Creatinine [Mass/Vol] 0.7 mg/dL Normal 0.6 - 1.2 mg/dL [facility]; [facility], [facility] Work Phone: GFR/1.73 sq M.predicted among blacks MDRD (S/P/Bld) [Vol rate/Area] mL/min/{1.73_m2} Normal 60 - 999 {ML/MINUTE} [facility]; [facility] Work Phone: GFR/1.73 sq M.predicted MDRD (S/P/Bld) [Vol rate/Area] mL/min/{1.73_m2} Normal 60 - 999 {ML/MINUTE} [facility].; [facility], [facility]. Work Phone: Globulin (S) [Mass/Vol] 3.1 g/dL Normal 1.5 - 3.8 g/dL [facility]; [facility] Work Phone: Glucose [Mass/Vol] 112 mg/dL Abnormal 74 - 106 mg/dL [facility]; [facility]. Work Phone: Natriuretic peptide B (Bld) [Mass/Vol] 10 pg/mL Normal 1 - 100 pg/mL [facility]; [facility]. Work Phone: Potassium [Moles/Vol] 3.5 mmol/L Normal 3.5 - 5.1 mmol/L [facility]; [facility] Work Phone: Protein [Mass/Vol] 7.2 g/dL Normal 6.4 - 8.3 g/dL [facility].; [facility]. Work Phone: Sodium [Moles/Vol] 136 mmol/L Normal 136 - 145 mmol/L [facility]; [facility]. Work Phone: Troponin I.cardiac Qn <0.01 Normal 0.00 - 0.05 ng/mL [facility]; [facility] Work Phone: Urea nitrogen [Mass/Vol] 12 mg/dL Normal 6 - 20 mg/dL [facility]; [facility] Work Phone: Urea nitrogen/Creatinine [Mass ratio] 17 {ratio} Normal 0 - 30 {ratio} [facility]; [facility] Work Phone: Laboratory - Hematology and Cell countson 04-01-2019 Basophils (Bld) [#/Vol] 0.10 {x10EE3/UL} Normal 0.00 - 0.10 {x10EE3/UL} [facility]; [facility] Work Phone: Basophils/100 WBC (Bld) 0.6 % Normal 0.0 - 2.0 % [facility]; [facility] Work Phone: Eosinophils (Bld) [#/Vol] 0.20 {x10EE3/UL} Normal 0.00 - 0.50 {x10EE3/UL} [facility]; [facility] Work Phone: Eosinophils/100 WBC (Bld) 2.0 % Normal 0.0 - 7.0 % [facility]; [facility] Work Phone: Erythrocyte distribution width (RBC) [Ratio] 14.5 % Normal 12.0 - 15.6 % [facility]; [facility] Work Phone: Hematocrit (Bld) [Volume fraction] 39.7 % Normal 34.0 - 46.0 % [facility]; [facility] Work Phone: Hemoglobin (Bld) [Mass/Vol] 13.2 g/dL Normal 12.0 - 16.0 g/dL [facility].; [facility]. Work Phone: Lymphocytes (Bld) [#/Vol] 2.80 {x10EE3/UL} Normal 0.80 - 2.80 {x10EE3/UL} [facility].; [facility], [facility]. Work Phone: Lymphocytes/100 WBC (Bld) 30.8 % Normal 20.0 - 45.0 % [facility].; [facility], [facility]. Work Phone: MCH (RBC) [Entitic mass] 27 pg Normal 27 - 33 pg [facility].; [facility], [facility]. Work Phone: MCHC (RBC) [Mass/Vol] 33 {X10_3} Normal 32 - 3 6 {X10_3} [facility].; [facility], [facility]. Work Phone: MCV (RBC) [Entitic vol] 82 fL Normal 80 - 99 fL [facility].; [facility], [facility]. Work Phone: Monocytes (Bld) [#/Vol] 0.60 {x10EE3/UL} Normal 0.20 - 1.00 {x10EE3/UL} [facility].; [facility], [facility]. Work Phone: Monocytes/100 WBC (Bld) 7.1 % Normal 0.0 - 10.0 % [facility].; [facility], [facility]. Work Phone: Neutrophils (Bld) [#/Vol] 5.40 {x10EE3/UL} Normal 1.50 - 7.10 {x10EE3/UL} [facility].; [facility], [facility]. Work Phone: Neutrophils/100 WBC (Bld) 59.5 % Normal 46.0 - 76.0 % [facility]; [facility]. Work Phone: Platelet mean volume (Bld) [Entitic vol] 8.4 fL Normal 6.6 - 10.5 fL [facility]; [facility]. Work Phone: Platelets (Bld) [#/Vol] 344 {x10EE3/UL} Normal 1 50 - 450 {x10EE3/UL} [facility]; [facility]. Work Phone: RBC (Bld) [#/Vol] 4.82 {x_10EE6/UL} Normal 4.10 - 5.30 {x_10EE6/UL} [facility].; [facility]. Work Phone: WBC (Bld) [#/Vol] 9.0 {x_10EE3/UL} Normal 4.5 - 10.8 {x_10EE3/UL} [facility].; [facility]. Work Phone: Laboratory - Microbiology an d Antimicrobial susceptibilityon 04-01-2019 FLUAV+FLUBV Ag Ql (Unsp spec) See Note Normal [facility]Work[facility]; [facility]. Work Phone: No Panel Informationon 04-01 N/A Normal [facility]; [facility]. Work Phone: 349 ng/mL Abnormal 0 - 230 ng/mL [facility]; [facility] Work Phone: 75 U/L Normal 38 - 126 U/L [facility]; [facility] Work Phone: 13 mmol/L Normal 10 - 20 mmol/L [facility]; [facility]. Work Phone: 40 {years} Normal [facility]; [facility] Work Phone: Laboratory - Chemistry and C hemistry - challengeon 08-19-2018 Albumin [Mass/Vol] 4.3 g/dL Normal 3.4 - 4.8 g/dL [facility]; [facility]. Work Phone: Albumin [Mass/Vol] 1.5 g/dL Normal 0.9 - 1.6 [facility]; [facility] Work Phone: ALT [Catalytic activity/Vol] 19 U/L Normal 8 - 35 U/L [facility]; [facility]. Work Phone: AST [Catalytic activity/Vol] 15 U/L Normal 13 - 39 U/L [facility]; [facility]. Work Phone: Bilirubin [Mass/Vol] 0.4 mg/dL Normal 0.0 - 1 .5 mg/dL [facility]; [facility]. Work Phone: Calcium [Mass/Vol] 9.2 mg/dL Normal 8.6 - 10. 2 mg/dL [facility]; [facility]. Work Phone: Chloride [Moles/Vol] 106 mmol/L Normal 98 - 10 7 mmol/L [facility]; [facility]. Work Phone: CO2 [Moles/Vol] 25.9 mmol/L Normal 21.0 - 31.0 mmol/L [facility]; [facility] Work Phone: Creatinine [Mass/Vol] 0.7 mg/dL Normal 0.6 - 1.2 mg/dL [facility]; [facility] Work Phone: CRP [Mass/Vol] 1.80 mg/dL Abnormal 0.00 - 1.00 mg/dL [facility]; [facility] Work Phone: GFR/1.73 sq M.predicted among blacks MDRD (S/P/Bld) [Vol rate/Area] mL/min/{1.73_m2} Normal 60 - 999 {ML/MINUTE} [facility]; [facility] Work Phone: Glucose [Mass/Vol] 143 mg/dL Abnormal 74 - 106 mg/dL [facility]; [facility] Work Phone: Natriuretic peptide B (Bld) [Mass/Vol] 36 pg/mL Normal 1 - 100 pg/mL [facility]; [facility], [facility]. Work Phone: Potassium [Moles/Vol] 3.7 mmol/L Normal 3.5 - 5.1 mmol/L [facility]; [facility] Work Phone: Protein [Mass/Vol] 7.2 g/dL Normal 6.4 - 8.3 g/dL [facility]; [facility]. Work Phone: Sodium [Moles/Vol] 140 mmol/L Normal 136 - 145 mmol/L [facility]; [facility], [facility] Work Phone: Urea nitrogen [Mass/Vol] 7 mg/dL Normal 6 - 20 mg/dL [facility]; [facility] Work Phone: Urea nitrogen/Creatinine [Mass ratio] 10 {ratio} Normal 0 - 30 {ratio} [facility] [employer] [facility]; [facility] [employer] [facility]. Work Phone: Laboratory - Hematology and Cell countson 08-19-2018 Basophils (Bld) [#/Vol] 0.10 {x10EE3/UL} Normal 0.00 - 0.10 {x10EE3/UL} [facility] [employer] [facility].; [facility] [employer] [facility]. Work Phone: Basophils/100 WBC (Bld) 1.0 % Normal 0.0 - 2.0 % [facility] [employer] [facility]; [facility]. Work Phone: Eosinophils (Bld) [#/Vol] 0.10 {x10EE3/UL} Normal 0.00 - 0.50 {x10EE3/UL} [facility] [employer] [facility] [employer]; [place] [employer] [facility] [employer] [facility]. Work Phone: Eosinophils/100 WBC (Bld) 1.6 % Normal 0.0 - 7.0 % [facility] [employer] [facility] [employer]; [facility] [employer] [facility]. Work Phone: Hematocrit (Bld) [Volume fraction] 38.7 % Normal 34.0 - 46.0 % [facility] [employer] [facility] [employer]; [facility] [employer] [facility]. Work Phone: Hemoglobin (Bld) [Mass/Vol] 13.4 g/dL Normal 12.0 - 16.0 g/dL [facility] [employer] [facility] [employer]; [facility] [employer] [facility]. Work Phone: Lymphocytes (Bld) [#/Vol] 1.70 {x10EE3/UL} Normal 0.80 - 2.80 {x10EE3/UL} [facility] [employer] [facility] [employer]; [facility] [employer] [facility]. Work Phone: Lymphocytes/100 WBC (Bld) 20.8 % Normal 20.0 - 45.0 % [facility]. Work Phone: MCH (RBC) [Entitic mass] 29 pg Normal 27 - 33 pg [facility]; [facility]. Work Phone: RBC (Bld) [#/Vol] 4.63 {x_10EE6/UL} Normal 4.10 - 5.30 {x_10EE6/UL} [facility].; [facility]. Work Phone: Laboratory - Chemistry and C hemistry - challengeon 04-02-2018 Beta HCG ( test) Ql (U) Negative Normal [facility]; [facility] Bilirubin Ql (U) Negative Normal [facility].; [facility], [facility] Calcium [Mass/Vol] 9.2 mg/dL Normal 8.6 - 10. 2 mg/dL [facility].; [facility]. Chloride [Moles/Vol] 101 mmol/L Normal 98 - 10 7 mmol/L [facility]; [facility], [facility]. CO2 [Moles/Vol] 27.9 mmol/L Normal 21.0 - 31.0 mmol/L [facility].; [facility], [facility] Creatinine [Mass/Vol] 0.6 mg/dL Normal 0.6 - 1.2 mg/dL [facility].; [facility], [facility]. GFR/1.73 sq M.predicted among blacks MDRD (S/P/Bld) [Vol rate/Area] mL/min/{1.73_m2} Normal 60 - 999 {ML/MINUTE} [facility].; [facility], [facility]. GFR/1.73 sq M.predicted MDRD (S/P/Bld) [Vol rate/Area] mL/min/{1.73_m2} Normal 60 - 999 {ML/MINUTE} [facility].; [facility], [employer] Glucose [Mass/Vol] 92 mg/dL Normal 74 - 106 mg/dL [facility] [employer] [facility].; [facility], [facility]. Ketones Ql (U) Negative Normal [facility]Cric[facility].; [facility], [employer] pH (U) 7.0 [pH] Normal [facility] [employer] [facility].; [facility], [employer] Potassium [Moles/Vol] 3.9 mmol/L Normal 3.5 - 5.1 mmol/L [facility] [employer] [facility].; [facility], [facility]. Sodium [Moles/Vol] 139 mmol/L Normal 136 - 145 mmol/L [facility] [employer] [facility].; [facility] [employer] [facility], [facility]. Specific gravity (U) [Rel density] 1.010 Normal [facility] [employer] [facility].; [facility], [facility]. Urea nitrogen [Mass/Vol] 8 mg/dL Normal 6 - 20 mg/dL [facility] [employer] [facility].; [facility] [employer] [facility], [facility] Laboratory - Hematology and Cell countson 04-02-2018 Hemoglobin Ql (U) NON HEMOLYZED MODERATE Abnormal [facility] HospitalTelun[facility].; [facility] [employer] [facility], [facility]. Laboratory - Microbiology an d Antimicrobial susceptibilityon 04-02-2018 Bacteria identified Cx Nom (U) See Note Normal [facility] [employer] [facility] [employer] [facility] Laboratory - Specimen inform ationon 04-02-2018 Appearance (U) CLEAR Normal [employer] [place] [facility] [employer] [facility], [facility] Color (U) YELLOW Normal [employer].; [place] [facility] [employer] [facility], [facility] Laboratory - Urinalysison Glucose Test strip (U) [Mass/Vol] Negative Normal [employer].; [place] [facility] [employer] [facility], [facility] Leukocyte esterase Test strip Ql (U) Negative Normal [facility] [employer] [facility].; [place] [facility] [employer] [facility], [facility] Nitrite Ql (U) Negative Normal [facility] [employer] [facility].; [facility], [employer] Protein Ql (U) Negative Normal [facility].; [facility], [facility]. No Panel Informationon 04-02 39 {years} Normal [facility].; [facility], [facility] 14 mmol/L Normal 10 - 20 mmol/L [facility].; [facility], [employer] 0.2 Normal [facility].; [facility], [facility]. Negative Normal [facility].; [facility], [facility]. Laboratory - Hematology and Cell countson 01-04-2016 Basophils (Bld) [#/Vol] 0.00 {x10EE3/UL} Normal 0.00 - 0.10 {x10EE3/UL} [facility].; [facility], [facility]. Basophils/100 WBC (Bld) 0.5 % Normal 0.0 - 2.0 % [facility].; [facility], [facility]. Eosinophils (Bld) [#/Vol] 0.10 {x10EE3/UL} Normal 0.00 - 0.50 {x10EE3/UL} [facility].; [facility], [facility]. Eosinophils/100 WBC (Bld) 1.6 % Normal 0.0 - 7.0 % [facility].; [facility], [facility]. Erythrocyte distribution width (RBC) [Ratio] 14.8 % Normal 12.0 - 15.6 % [facility].; [facility], [facility]. Hematocrit (Bld) [Volume fraction] 36.8 % Normal 34.0 - 46.0 % [facility] [employer] [facility].; [facility], [facility]. Hemoglobin (Bld) [Mass/Vol] 12.3 g/dL Normal 12.0 - 16.0 g/dL [facility] [employer] [facility].; [facility] [employer] [facility], [facility]. Lymphocytes (Bld) [#/Vol] 1.30 {x10EE3/UL} Normal 0.80 - 2.80 {x10EE3/UL} [facility].; [facility], [facility]. Lymphocytes/100 WBC (Bld) 16.2 % Abnormal 20.0 - 45.0 % [facility], [facility].; [facility], [facility]. MCH (RBC) [Entitic mass] 28 pg Normal 27 - 33 pg [facility], [facility].; [facility], [facility]. MCHC (RBC) [Mass/Vol] 34 {X10_3} Normal 32 - 3 6 {X10_3} [facility], [facility].; [facility], [facility]. MCV (RBC) [Entitic vol] 82 fL Normal 80 - 99 fL [facility].; [facility], [facility] Monocytes (Bld) [#/Vol] 0.40 {x10EE3/UL} Normal 0.20 - 1.00 {x10EE3/UL} [facility], [facility].; [facility], [facility]. Monocytes/100 WBC (Bld) 4.8 % Normal 0.0 - 10.0 % [facility], [facility].; [facility], [facility]. Neutrophils (Bld) [#/Vol] 6.10 {x10EE3/UL} Normal 1.50 - 7.10 {x10EE3/UL} [facility], [facility].; [facility], [facility]. Neutrophils/100 WBC (Bld) 76.9 % Abnormal 46.0 - 76.0 % [facility].; [facility], [facility]. Platelet mean volume (Bld) [Entitic vol] 9.6 fL Normal 6.6 - 10.5 fL [facility] [employer] [facility].; [facility], [facility]. Platelets (Bld) [#/Vol] 294 {x10EE3/UL} Normal 1 50 - 450 {x10EE3/UL} [facility], [facility].; [facility] RBC (Bld) [#/Vol] 4.49 {x_10EE6/UL} Normal 4.10 - 5.30 {x_10EE6/UL} [facility].; [facility], [facility] WBC (Bld) [#/Vol] 8.0 {x_10EE3/UL} Normal 4.5 - 10.8 {x_10EE3/UL} [facility], [facility].; [facility], [facility]. No Panel Informationon 01-03 N/A Normal [facility].; [facility], [facility] Laboratory - Chemistry and C hemistry - challengeon 11-16-2015 Cholesterol [Mass/Vol] 151 mg/dL Normal 0 - 2 00 mg/dL [facility].; [facility], [facility]. Cholesterol in HDL [Mass or moles/Vol] 53 mg/dL Normal 40 - 60 mg/dL [facility].; [facility], [facility]. Cholesterol in LDL [Mass/Vol] 69 mg/dL Normal 0 - 129 mg/dL [facility].; [facility], [facility]. Cholesterol.total/Christa sterol in HDL [Mass ratio] 2.8 {ratio} Normal 0.0 - 5.0 [facility].; [facility], [facility]. Triglyceride [Mass/Vol] 144 mg/dL Normal 0 - 150 mg/dL [facility].; [facility], [facility]. Laboratory - Chemistry and C hemistry - challengeon 10-21-2015 Calcium [Mass/Vol] 9.0 mg/dL Normal 8.6 - 10. 2 mg/dL [facility].; [facility], [facility]. Chloride [Moles/Vol] 102 mmol/L Normal 98 - 10 7 mmol/L [facility].; [facility], [facility]. CO2 [Moles/Vol] 28.0 mmol/L Normal 21.0 - 31.0 mmol/L [facility].; [facility], [facility]. Creatinine [Mass/Vol] 0.7 mg/dL Normal 0.6 - 1.2 mg/dL [facility].; [facility], [facility]. GFR/1.73 sq M.predicted among blacks MDRD (S/P/Bld) [Vol rate/Area] mL/min/{1.73_m2} Normal 60 - 999 {ML/MINUTE} [facility], [facility].; [facility], [facility]. GFR/1.73 sq M.predicted MDRD (S/P/Bld) [Vol rate/Area] mL/min/{1.73_m2} Normal 60 - 999 {ML/MINUTE} [facility], [facility].; [facility], [facility]. Glucose [Mass/Vol] 86 mg/dL Normal 74 - 106 mg/dL [facility].; [facility], [facility]. Potassium [Moles/Vol] 4.1 mmol/L Normal 3.5 - 5.1 mmol/L [facility].; [facility], [facility] Sodium [Moles/Vol] 138 mmol/L Normal 136 - 145 mmol/L [facility].; [facility], [facility]. Urea nitrogen [Mass/Vol] 10 mg/dL Normal 6 - 20 mg/dL [facility].; [facility], [facility]. Laboratory - Hematology and Cell countson 10-21-2015 HbA1c (Bld) [Mass fraction] 6.0 % Normal 4.4 - 6.4 % [facility].; [facility], [facility]. No Panel Informationon 10-20 12 mmol/L Normal 10 - 20 mmol/L [facility].; [facility], [facility]. 35 {years} Normal [facility].; [facility], [facility]. Laboratory - Chemistry and C hemistry - challengeon 10-05-2015 Albumin [Mass/Vol] 3.8 g/dL Normal 3.4 - 4.8 g/dL [facility], [facility].; [facility], [facility]. Albumin [Mass/Vol] 1.5 g/dL Normal 0.9 - 1.6 [facility].; [facility]. ALT [Catalytic activity/Vol] 10 U/L Normal 8 - 35 U/L [facility]; [facility] ALT No additional P-5'-P [Catalytic activity/Vol] 10 U/L Normal 8 - 35 U/L [facility].; [facility]. AST [Catalytic activity/Vol] 12 U/L Abnormal 13 - 39 U/L [facility].; [facility]. Bilirubin [Mass/Vol] 0.2 mg/dL Normal 0.0 - 1 .5 mg/dL [facility]; [facility] Calcium [Mass/Vol] 9.0 mg/dL Normal 8.6 - 10. 2 mg/dL [facility]; [facility] Chloride [Moles/Vol] 106 mmol/L Normal 98 - 10 7 mmol/L [facility]; [facility] CO2 [Moles/Vol] 24.0 mmol/L Normal 21.0 - 31.0 mmol/L [facility]; [facility] Creatinine [Mass/Vol] 0.7 mg/dL Normal 0.6 - 1.2 mg/dL [facility].; [facility], [facility]. GFR/1.73 sq M.predicted among blacks MDRD (S/P/Bld) [Vol rate/Area] mL/min/{1.73_m2} Normal 60 - 999 {ML/MINUTE} [facility].; [facility], [facility]. GFR/1.73 sq M.predicted MDRD (S/P/Bld) [Vol rate/Area] mL/min/{1.73_m2} Normal 60 - 999 {ML/MINUTE} [facility].; [facility], [facility]. Globulin (S) [Mass/Vol] 2.6 g/dL Normal 1.5 - 3.8 g/dL [facility]; [facility], [facility] Glucose [Mass/Vol] 171 mg/dL Abnormal 74 - 106 mg/dL [facility]; [facility], [facility] Potassium [Moles/Vol] 3.9 mmol/L Normal 3.5 - 5.1 mmol/L [facility]; [facility], [facility] Protein [Mass/Vol] 6.4 g/dL Normal 6.4 - 8.3 g/dL [facility]; [facility], [facility] Sodium [Moles/Vol] 137 mmol/L Normal 136 - 145 mmol/L [facility]; [facility] Urea nitrogen [Mass/Vol] 6 mg/dL Normal 6 - 20 mg/dL [facility]; [facility], [facility] Urea nitrogen/Creatinine [Mass ratio] 9 {ratio} Normal 0 - 30 {ratio} [facility]; [facility], [facility] No Panel Informationon 10-04 67 U/L Normal 38 - 126 U/L [facility]; [facility], [facility] 11 mmol/L Normal 10 - 20 mmol/L [facility].; [facility], [facility]. 35 {years} Normal [facility]; [facility], [facility] Laboratory - Chemistry and C hemistry - challengeon 06-04-2015 Albumin [Mass/Vol] 1.3 g/dL Normal 0.9 - 1.6 [facility]; [facility], [facility] Albumin [Mass/Vol] 3.7 g/dL Normal 3.4 - 4.8 g/dL [facility]; [facility], [facility] ALT [Catalytic activity/Vol] 7 U/L Abnormal 8 - 35 U/L [facility]; [facility], [facility] ALT No additional P-5'-P [Catalytic activity/Vol] 7 U/L Abnormal 8 - 35 U/L [facility]; [facility] Amylase [Catalytic activity/Vol] 30 U/L Normal 29 - 103 U/L [facility]; [facility] AST [Catalytic activity/Vol] 9 U/L Abnormal 13 - 39 U/L [facility]; [facility] Bilirubin [Mass/Vol] 0.3 mg/dL Normal 0.0 - 1 .5 mg/dL [facility]; [facility] Bilirubin Ql (U) Negative Normal [facility]; [facility] Calcium [Mass/Vol] 9.1 mg/dL Normal 8.6 - 10. 2 mg/dL [facility]; [facility] Chloride [Moles/Vol] 106 mmol/L Normal 98 - 10 7 mmol/L [facility]; [facility] CO2 [Moles/Vol] 25.0 mmol/L Normal 13.0 - 29.0 mmol/L [facility]; [facility] Creatinine [Mass/Vol] 0.7 mg/dL Normal 0.6 - 1.2 mg/dL [facility]; [facility]. GFR/1.73 sq M.predicted among blacks MDRD (S/P/Bld) [Vol rate/Area] mL/min/{1.73_m2} Normal 60 - 999 {ML/MINUTE} [facility].; [facility], [facility]. GFR/1.73 sq M.predicted MDRD (S/P/Bld) [Vol rate/Area] mL/min/{1.73_m2} Normal 60 - 999 {ML/MINUTE} [facility].; [facility], [facility]. Globulin (S) [Mass/Vol] 2.8 g/dL Normal 1.5 - 3.8 g/dL [facility]; [facility], [facility] Glucose [Mass/Vol] 94 mg/dL Normal 74 - 106 mg/dL [facility].; [facility] Ketones Ql (U) Negative Normal [facility]; [facility] Lipase [Catalytic activity/Vol] 15.0 U/L Abnormal 18.0 - 51.0 U/L [facility]; [facility] pH (U) 5.0 [pH] Normal [facility]; [facility] Potassium [Moles/Vol] 4.4 mmol/L Normal 3.5 - 5.1 mmol/L [facility]; [facility] Protein [Mass/Vol] 6.5 g/dL Normal 6.4 - 8.3 g/dL [facility]; [facility] Sodium [Moles/Vol] 137 mmol/L Normal 136 - 145 mmol/L [facility]; [facility]. Specific gravity (U) [Rel density] 1.015 Normal [facility]; [facility] Urea nitrogen [Mass/Vol] 9 mg/dL Normal 6 - 20 mg/dL [facility]; [facility] Urea nitrogen/Creatinine [Mass ratio] 13 {ratio} Normal 0 - 30 {ratio} [facility]; [facility] Laboratory - Hematology and Cell countson 06-04-2015 Basophils (Bld) [#/Vol] 0.00 {x10EE3/UL} Normal 0.00 - 0.10 {x10EE3/UL} [facility]; [facility], [facility] Basophils/100 WBC (Bld) 0.4 % Normal 0.0 - 2.0 % [facility]; [facility], [facility] Eosinophils (Bld) [#/Vol] 0.10 {x10EE3/UL} Normal 0.00 - 0.50 {x10EE3/UL} [facility]; [facility] Eosinophils/100 WBC (Bld) 0.9 % Normal 0.0 - 7.0 % [facility]; [facility] Erythrocyte distribution width (RBC) [Ratio] 13.8 % Normal 12.0 - 15.6 % [facility]; [facility] ESR (Bld) [Velocity] 25 mm/h Normal 0 - 30 mm/h [facility]; [facility] Hematocrit (Bld) [Volume fraction] 36.2 % Normal 34.0 - 46.0 % [facility]; [facility] Hemoglobin (Bld) [Mass/Vol] 11.9 g/dL Abnormal 12.0 - 16.0 g/dL [facility]; [facility], [facility] Hemoglobin Ql (U) Negative Normal [facility]; [facility] Lymphocytes (Bld) [#/Vol] 1.40 {x10EE3/UL} Normal 0.80 - 2.80 {x10EE3/UL} [facility]; [facility], [facility] Lymphocytes/100 WBC (Bld) 24.9 % Normal 20.0 - 45.0 % [facility]; [facility] MCH (RBC) [Entitic mass] 27 pg Normal 27 - 33 pg [facility].; [facility], [facility] MCHC (RBC) [Mass/Vol] 33 {X10_3} Normal 32 - 3 6 {X10_3} [facility].; [facility], [facility]. MCV (RBC) [Entitic vol] 83 fL Normal 80 - 99 fL [facility]; [facility], [facility] Monocytes (Bld) [#/Vol] 0.50 {x10EE3/UL} Normal 0.20 - 1.00 {x10EE3/UL} [facility], [facility].; [facility], [facility]. Monocytes/100 WBC (Bld) 8.1 % Normal 0.0 - 10.0 % [facility], [facility].; [facility], [facility]. Neutrophils (Bld) [#/Vol] 3.70 {x10EE3/UL} Normal 1.50 - 7.10 {x10EE3/UL} [facility], [facility].; [facility], [facility]. Neutrophils/100 WBC (Bld) 65.7 % Normal 46.0 - 76.0 % [facility], [facility].; [facility], [facility]. Platelet mean volume (Bld) [Entitic vol] 9.0 fL Normal 6.6 - 10.5 fL [facility], [facility].; [facility], [facility]. Platelets (Bld) [#/Vol] 311 {x10EE3/UL} Normal 1 50 - 450 {x10EE3/UL} [facility], [facility].; [facility], [facility]. RBC (Bld) [#/Vol] 4.37 {x_10EE6/UL} Normal 4.10 - 5.30 {x_10EE6/UL} [facility], [facility].; [facility], [facility]. WBC (Bld) [#/Vol] 5.6 {x_10EE3/UL} Normal 4.5 - 10.8 {x_10EE3/UL} [facility], [facility].; [facility], [facility]. Laboratory - Specimen inform ationon 06-04-2015 Appearance (U) CLEAR Normal [facility].; [facility], [facility]. Color (U) NUNU Normal [facility].; [facility], [facility]. Laboratory - Urinalysison Glucose Test strip (U) [Mass/Vol] Negative Normal [facility].; [facility], [facility]. Leukocyte esterase Test strip Ql (U) Negative Normal [facility] Nitrite Ql (U) Negative Normal [facility] Protein Ql (U) TRACE Abnormal [facility] No Panel Informationon 06-03 35 {years} Normal [facility] 10 mmol/L Normal 10 - 20 mmol/L [facility] 63 U/L Normal 38 - 126 U/L [facility] 0.2 Normal [facility], [employer] [facility] Negative Normal [facility] [employer] [facility] N/A Normal [facility], [employer] [facility] Laboratory - Chemistry and C hemistry - challengeon 02-27-2011 Beta HCG ( test) Ql (U) Negative Normal [facility] [employer] [facility] Bilirubin Ql (U) Negative Normal [facility], [employer] [facility] [employer] [facility] Ketones Ql (U) Negative Normal [facility] [employer] [facility] pH (U) 5.0 [pH] Normal [facility], [employer] [facility] Specific gravity (U) [Rel density] 1.020 Normal [facility] [employer] [facility], [employer] [facility] [employer] [facility] Laboratory - Hematology and Cell countson 02-27-2011 Hemoglobin Ql (U) Negative Normal [facility], [employer] [facility] [employer] [facility] Laboratory - Specimen inform ationon 02-27-2011 Appearance (U) CLEAR Normal [facility] [employer] [facility] [employer] [facility] [employer] [facility] Color (U) YELLOW Normal [facility] [employer] [facility], [employer] [facility] [employer] [facility] Laboratory - Urinalysison Glucose Test strip (U) [Mass/Vol] Negative Normal [facility] [employer] [facility] Leukocyte esterase Test strip Ql (U) 2+ Abnormal [facility] [employer] [facility] [employer] [facility] Nitrite Ql (U) Negative Normal [facility] [employer] [facility], [facility] Protein Ql (U) Negative Normal [facility] [employer] [facility] No Panel Informationon 02-27 0.2 Normal [facility] [employer] [facility].; [employer] [facility]. Negative Normal [facility].; [facility], [employer]. Vital Signs Date Time Vital Sign Value Performing Clinician Faci lity 11-05-2024 13:42-0400 Diastolic blood pressure 66 mm[Hg] Hakeem Weiss PA Work Phone: [facility] 11-05-2024 13:42-0400 Heart rate 81 /min Hakeem Weiss PA Work Phone: [facility] 11-05-2024 13:42-0400 Respiratory rate 18 /min Hakeem Weiss PA Work Phone: [facility] 11-05-2024 13:42-0400 SaO2% (BldA) [Mass fraction] 94 % Hakeem Weiss PA Work Phone: [facility] 11-05-2024 13:42-0400 Systolic blood pressure 128 mm[Hg] Hakeem Weiss PA Work Phone: [facility] 11-05-2024 13:25-0400 Body height 160.02 cm Hakeem Weiss PA Work Phone: [facility] 11-05-2024 13:25-0400 Body mass index (BMI) [Ratio] 56.7 kg/m2 Hakeem Weiss PA Work Phone: [facility] 11-05-2024 13:25-0400 Body weight 145.14 kg Hakeem Weiss PA Work Phone: [facility] 10-28-2024 07:01-0400 Body mass index (BMI) [Ratio] 58.3 kg/m2 Hakeem Weiss PA Work Phone: [facility] 10-28-2024 07:01-0400 Body weight 144.69 kg Hakeem Weiss PA Work Phone: [facility] 10-28-2024 07:01-0400 Diastolic blood pressure 79 mm[Hg] Hakeem Weiss PA Work Phone: [phone] [place] [address] 10-28-2024 07:01-0400 Heart rate 83 /min Hakeem Weiss PA Work Phone: [facility] 10-28-2024 07:01-0400 Respiratory rate 20 /min Hakeem Weiss PA Work Phone: [phone] [place] [address] 10-28-2024 07:01-0400 SaO2% (BldA) [Mass fraction] 96 % Hakeem Weiss PA Work Phone: [phone] [place] [address] 10-28-2024 07:01-0400 Systolic blood pressure 129 mm[Hg] Hakeem Weiss PA Work Phone: [phone] [place] [address] 08-02-2024 08:16-0400 Body height 157.48 cm Hakeem Weiss PA Work Phone: [facility] 08-02-2024 08:16-0400 Body mass index (BMI) [Ratio] 58.8 kg/m2 Hakeem Weiss PA Work Phone: [facility] 08-02-2024 08:16-0400 Body temperature 97.9 [degF] Hakeem Weiss PA Work Phone: [facility] 08-02-2024 08:16-0400 Body weight 145.87 kg Hakeem Weiss PA Work Phone: [facility] 08-02-2024 08:16-0400 Diastolic blood pressure 78 mm[Hg] Hakeem Weiss PA Work Phone: [phone] [place] [address] 08-02-2024 08:16-0400 Heart rate 87 /min Hakeem Weiss PA Work Phone: [facility] 08-02-2024 08:16-0400 Respiratory rate 18 /min Hakeem Weiss PA Work Phone: [facility] 08-02-2024 08:16-0400 SaO2% (BldA) [Mass fraction] 98 % Hakeem Weiss PA Work Phone: [facility] 08-02-2024 08:16-0400 Systolic blood pressure 145 mm[Hg] Hakeem Weiss PA Work Phone: [facility] 06-27-2024 09:51-0400 Body height 161.29 cm Maribeth Kelley MA [facility], [facility].; [facility], [facility]. 06-27-2024 09:51-0400 Body mass index (BMI) [Ratio] 56.32 kg/m2 Maribeth Kelley MA [facility], [facility].; [facility], [facility]. 06-27-2024 09:51-0400 Body surface area Derived from formula 2.38 m2 Maribeth Kelley MA [facility], [facility].; [facility], [facility]. 06-27-2024 09:51-0400 Body weight 146.51 kg Maribeth Kelley MA [facility], [facility].; [facility], [facility]. 06-27-2024 09:51-0400 Diastolic blood pressure 70 mm[Hg] Maribeth Kelley [facility].; [employer] [facility]. Comment on above: Patient Position: Sitting; Cuff Location : Left Arm; Cuff Size: Standard 06-27-2024 09:51-0400 Heart rate 101 /min Maribeth Kelley MA [facility], [facility].; [employer]. Comment on above: Pattern: Regular 06-27-2024 09:51-0400 Systolic blood pressure 106 mm[Hg] Maribeth Kelley MA [facility] [employer]. Comment on above: Patient Position: Sitting; Cuff Location : Left Arm; Cuff Size: Standard 02-28-2024 09:56-0500 Body height 161.29 cm Ashley Camilo [facility], [facility].; [facility]. 02-28-2024 09:56-0500 Body mass index (BMI) [Ratio] 54.92 kg/m2 [facility].; [facility] 02-28-2024 09:56-0500 Body surface area Derived from formula 2.36 m2 [facility].; [facility], [facility]. 02-28-2024 09:56-0500 Body temperature 98.9 [degF] [facility], [facility].; [facility] [employer]. Comment on above: Method: Tympanic 02-28-2024 09:56-0500 Body weight 142.88 kg [facility], [facility].; [facility], [facility]. 02-28-2024 09:56-0500 Diastolic blood pressure 84 mm[Hg] [facility].; [place] [employer] [facility] Comment on above: Patient Position: Sitting; Cuff Location : Left Arm; Cuff Size: Standard 02-28-2024 09:56-0500 Heart rate 114 /min [facility], [facility].; [facility] Comment on above: Pattern: Regular 02-28-2024 09:56-0500 Inhaled oxygen concentration 21 % [facility] Comment on above: Room air 02-28-2024 09:56-0500 SaO2% (BldA) [Mass fraction] 94 % [facility].; [facility], [facility]. 02-28-2024 09:56-0500 Systolic blood pressure 118 mm[Hg] [facility].; [place] [employer] [facility]. Comment on above: Patient Position: Sitting; Cuff Location : Left Arm; Cuff Size: Standard 09-21-2023 11:00-0400 Body height 157.48 cm Nuvia Cohen [facility]; [facility] 09-21-2023 11:00-0400 Body mass index (BMI) [Ratio] 57.16 kg/m2 Nuvia Cohen RN [facility], [facility] 09-21-2023 11:00-0400 Body surface area Derived from formula 2.31 m2 Nuvia Coehn RN [facility], [facility] 09-21-2023 11:00-0400 Body temperature 98.4 [degF] Nuvia Cohen RN [facility] 09-21-2023 11:00-0400 Body weight 141.75 kg Nuvia Cohen RN [facility], [facility].; [facility] [employer] [facility] 09-21-2023 11:00-0400 Diastolic blood pressure 77 mm[Hg] Nuvia Cohen RN [facility], [facility] 09-21-2023 11:00-0400 Heart rate 85 /min Nuvia Cohen RN [facility], [facility].; [facility] 09-21-2023 11:00-0400 Inhaled oxygen concentration 21 % Nuvia Cohen RN [facility] 09-21-2023 11:00-0400 SaO2% (BldA) [Mass fraction] 96 % Nuvia Cohen RN [facility], [facility] [employer] [facility] 09-21-2023 11:00-0400 Systolic blood pressure 120 mm[Hg] Nuvia Cohen RN [facility], [facility] [employer] [facility] 05-03-2023 10:31-0400 Body height 157.48 cm Milady Rivera RN [facility] [employer] [facility] [employer] [facility] 05-03-2023 10:31-0400 Body mass index (BMI) [Ratio] 56.9 kg/m2 Milady Rivera RN [facility] [employer] [facility]. 05-03-2023 10:31-0400 Body surface area Derived from formula 2.31 m2 Milady Rivera RN [facility].; [facility]. 05-03-2023 10:31-0400 Body weight 141.13 kg Milady Rivera RN [facility].; [facility]. 05-03-2023 10:31-0400 Diastolic blood pressure 67 mm[Hg] Milady Rivera RN [facility].; [facility]. 05-03-2023 10:31-0400 Heart rate 80 /min Milady Rivera RN [facility].; [facility]. 05-03-2023 10:31-0400 Systolic blood pressure 103 mm[Hg] Milady Rivera RN [facility].; [facility]. 01-05-2023 10:49-0500 Body height 157.5 cm Eliane Han MD Work Phone: [facility] [employer] 01-05-2023 10:49-0500 Body mass index (BMI) [Ratio] 56.15 kg/m2 Eliane Han MD Work Phone: [facility] [employer] 01-05-2023 10:49-0500 Body weight 139.25 kg Eliane Han MD Work Phone: [facility] [employer] 01-05-2023 10:49-0500 Diastolic blood pressure 84 mm[Hg] Eliane Han MD Work Phone: [facility] [employer] 01-05-2023 10:49-0500 Heart rate 76 /min Eliane Han MD Work Phone: [facility] [employer] 01-05-2023 10:49-0500 Systolic blood pressure 133 mm[Hg] Eliane Han MD Work Phone: [facility] [employer] 12-22-2022 10:19-0500 Body height 157.5 cm Eliane Han MD Work Phone: [facility] 12-22-2022 10:19-0500 Body mass index (BMI) [Ratio] 56.66 kg/m2 Eliane Han MD Work Phone: [facility] 12-22-2022 10:19-0500 Body weight 140.52 kg Eliane Han MD Work Phone: [facility] 12-22-2022 10:19-0500 Diastolic blood pressure 79 mm[Hg] Eliane Han MD Work Phone: [facility] 12-22-2022 10:19-0500 Heart rate 78 /min Eliane Han MD Work Phone: [facility] 12-22-2022 10:19-0500 Systolic blood pressure 116 mm[Hg] Eliane Han MD Work Phone: [facility] 12-18-2022 08:19-0500 Diastolic blood pressure 68 mm[Hg] Jean Paul Bailey MD Work Phone: [facility] 12-18-2022 08:19-0500 Heart rate 78 /min Jean Paul Bailey MD Work Phone: [facility] 12-18-2022 08:19-0500 Respiratory rate 18 /min Jean Paul Bailey MD Work Phone: [facility] 12-18-2022 08:19-0500 SaO2% (BldA) [Mass fraction] 96 % Jean Paul Bailey MD Work Phone: [facility] 12-18-2022 08:19-0500 Systolic blood pressure 131 mm[Hg] Jean Paul Bailey MD Work Phone: [facility] 12-18-2022 06:49-0500 Body height 157.5 cm Jean Paul Bailey MD Work Phone: [facility] 12-18-2022 06:49-0500 Body mass index (BMI) [Ratio] 56.15 kg/m2 Jean Paul Bailey MD Work Phone: [facility] 12-18-2022 06:49-0500 Body temperature 97.59 [degF] Jean Paul Bailey MD Work Phone: [facility] [employer] 12-18-2022 06:49-0500 Body weight 139.25 kg Jean Paul Bailey MD Work Phone: [facility] 12-15-2022 10:13-0500 Body height 157.48 cm Nuvia Cohen RN [facility] [employer] [facility] [employer] [facility] [employer] [facility] 12-15-2022 10:13-0500 Body mass index (BMI) [Ratio] 56.52 kg/m2 Nuvia Cohen RN [facility] [employer] [facility] [employer] [facility], [employer] 12-15-2022 10:13-0500 Body surface area Derived from formula 2.3 m2 Nuvia Cohen RN [facility] [employer] [facility], [employer] 12-15-2022 10:13-0500 Body temperature 99.2 [degF] Nuvia Cohen RN [facility] [employer] [facility] [employer] [facility] 12-15-2022 10:13-0500 Body weight 140.16 kg Nuvia Cohen RN [facility] [employer] [facility], [employer] [facility] [employer] [facility] 12-15-2022 10:13-0500 Diastolic blood pressure 69 mm[Hg] Nuvia Cohen RN [facility] [employer] [facility] [employer] [facility], [employer] 12-15-2022 10:13-0500 Heart rate 81 /min Nuvia Cohen RN [facility] [employer] [facility] [employer] [facility] 12-15-2022 10:13-0500 Inhaled oxygen concentration 21 % Nuvia Cohen RN [facility] [employer] [facility] [employer] [facility], [employer] 12-15-2022 10:13-0500 SaO2% (BldA) [Mass fraction] 99 % Nuvia Cohen RN [facility] [employer] [facility] [employer] [facility] [employer] [facility], [employer] 12-15-2022 10:13-0500 Systolic blood pressure 102 mm[Hg] Nuvia Cohen RN [facility].; [facility] 11-23-2022 14:10-0400 Body height 157.5 cm Eliane Han MD Work Phone: [facility] 11-23-2022 14:10-0400 Body mass index (BMI) [Ratio] 55.93 kg/m2 Eliane Han MD Work Phone: [facility] 11-23-2022 14:10-0400 Body weight 138.71 kg Eliane Han MD Work Phone: [facility] 11-23-2022 14:10-0400 Diastolic blood pressure 72 mm[Hg] Eliane Han MD Work Phone: [facility] 11-23-2022 14:10-0400 Heart rate 77 /min Eliane Han MD Work Phone: [facility] [employer] 11-23-2022 14:10-0400 Systolic blood pressure 111 mm[Hg] Eliane Han MD Work Phone: [facility] 11-15-2022 10:57-0400 Body height 157.5 cm Rosana Falat SILK WASHING MACHINE OPERATOR - CN P Work Phone: [facility] 11-15-2022 10:57-0400 Body mass index (BMI) [Ratio] 56.66 kg/m2 Rosana Falat SILK WASHING MACHINE OPERATOR - MANAGER PROCESS IMPROVEMENT Work Phone: [facility] [employer] 11-15-2022 10:57-0400 Body temperature 97.81 [degF] Rosana Falat SILK WASHING MACHINE OPERATOR - CN P Work Phone: [facility] 11-15-2022 10:57-0400 Body weight 140.52 kg Rosana Falat SILK WASHING MACHINE OPERATOR - CN P Work Phone: [facility] 11-15-2022 10:57-0400 Diastolic blood pressure 77 mm[Hg] Rosana Falat SILK WASHING MACHINE OPERATOR - MANAGER PROCESS IMPROVEMENT Work Phone: [facility] [employer] 11-15-2022 10:57-0400 Heart rate 79 /min Rosana Falat SILK WASHING MACHINE OPERATOR - CN P Work Phone: [facility] 11-15-2022 10:57-0400 SaO2% (BldA) [Mass fraction] 93 % Rosana Travis SILK WASHING MACHINE OPERATOR - MANAGER PROCESS IMPROVEMENT Work Phone: [facility] 11-15-2022 10:57-0400 Systolic blood pressure 130 mm[Hg] Rosana Travis SILK WASHING MACHINE OPERATOR - MANAGER PROCESS IMPROVEMENT Work Phone: [facility] 10-30-2022 07:47-0400 Body height 157.48 cm [employer] Jessica Kruger [employer] Work Phone: [facility] 10-30-2022 07:47-0400 Body mass index (BMI) [Ratio] 57.4 kg/m2 [employer] Jessica Sarabiaer [employer] Work Phone: [facility] 10-30-2022 07:47-0400 Body temperature 97.5 [degF] [employer] Jessica Kruger [employer] Work Phone: [facility] 10-30-2022 07:47-0400 Body weight 142.42 kg [employer] Jessica Sarabiaer [employer] Work Phone: [facility] 10-30-2022 07:47-0400 Diastolic blood pressure 74 mm[Hg] [employer] Jessica Sarabiaer [employer] Work Phone: [facility] 10-30-2022 07:47-0400 Heart rate 82 /min [employer] Jessica Sarabiaer [employer] Work Phone: [facility] 10-30-2022 07:47-0400 Respiratory rate 20 /min [employer] Jessica Sarabiaer [employer] Work Phone: [facility] 10-30-2022 07:47-0400 SaO2% (BldA) [Mass fraction] 96 % [employer] Jessica Sarabiaer [employer] Work Phone: [facility] 10-30-2022 07:47-0400 Systolic blood pressure 119 mm[Hg] [employer] Jessica Sarabiaer [employer] Work Phone: [facility] 10-20-2022 11:57-0400 Body height 157.[address] Work Phone: [facility] 10-20-2022 11:57-0400 Body mass index (BMI) [Ratio] 57.43 kg/m2 Aleisha Josephic RD Work Phone: [facility] 10-20-2022 11:57-0400 Body weight 142.[address] Work Phone: [facility] 09-30-2022 14:23-0400 Body height 157.48 cm [employer] Jessica Kruger [employer] Work Phone: [facility] 09-30-2022 14:23-0400 Body mass index (BMI) [Ratio] 56.5 kg/m2 [employer] Jessica Kruger [employer] Work Phone: [facility] 09-30-2022 14:23-0400 Body temperature 96.9 [degF] [employer] Jessica Kruger [employer] Work Phone: [facility] 09-30-2022 14:23-0400 Body weight 140.16 kg [employer] Jessica Kruger [employer] Work Phone: [facility] 09-30-2022 14:23-0400 Diastolic blood pressure 83 mm[Hg] [employer] Jessica Kruger [employer] Work Phone: [facility] 09-30-2022 14:23-0400 Heart rate 89 /min [employer] Jessica Kruger [employer] Work Phone: [facility] 09-30-2022 14:23-0400 Respiratory rate 16 /min [employer] Jessica Kruger [employer] Work Phone: [facility] 09-30-2022 14:23-0400 SaO2% (BldA) [Mass fraction] 97 % [employer] Jessica Kruger [employer] Work Phone: [facility] 09-30-2022 14:23-0400 Systolic blood pressure 142 mm[Hg] [employer] Jessica Hoarjuntetter [employer] Work Phone: [facility] 09-19-2022 14:16-0400 Body mass index (BMI) [Ratio] 57.8 kg/m2 [employer] Jessica Hofstetter [employer] Work Phone: [facility] 09-19-2022 14:16-0400 Body weight 143.33 kg [employer] Jessica Hofstetter [employer] Work Phone: [facility] 09-19-2022 14:16-0400 Diastolic blood pressure 80 mm[Hg] [employer] Jessica Hoarjuntetter [employer] Work Phone: [facility] 09-19-2022 14:16-0400 Heart rate 90 /min [employer] Jessica Hoarjuntetter [employer] Work Phone: [facility] 09-19-2022 14:16-0400 Respiratory rate 22 /min [employer] Jessica Hoarjuntetter [employer] Work Phone: [facility] 09-19-2022 14:16-0400 SaO2% (BldA) [Mass fraction] 97 % [employer] Jessica Caintetter [employer] Work Phone: [facility] 09-19-2022 14:16-0400 Systolic blood pressure 138 mm[Hg] [employer] Jessica Caintetter [employer] Work Phone: [facility] 08-30-2022 13:00-0400 Body height 157.5 cm Jean Paul Bailey MD Work Phone: [facility] [employer] 08-30-2022 13:00-0400 Body mass index (BMI) [Ratio] 58.38 kg/m2 Jean Paul Bailey MD Work Phone: [facility] 08-30-2022 13:00-0400 Body temperature 97.2 [degF] Jean Paul Bailey MD Work Phone: [facility] [employer] 08-30-2022 13:00-0400 Body weight 144.79 kg Jean Paul Bailey MD Work Phone: [facility] [employer] 08-30-2022 13:00-0400 Diastolic blood pressure 76 mm[Hg] Jean Paul Bailey MD Work Phone: [facility] 08-30-2022 13:00-0400 Heart rate 90 /min Jean Paul Bailey MD Work Phone: [facility] [employer] 08-30-2022 13:00-0400 Respiratory rate 20 /min Jean Paul Bailey MD Work Phone: [facility] [employer] 08-30-2022 13:00-0400 Systolic blood pressure 106 mm[Hg] Jean Paul Bailey MD Work Phone: [facility] [employer] 08-25-2022 14:10-0400 Body height 157.48 cm Nuvia Cohen RN [facility] [employer] [facility] [employer] [facility] [employer] [facility], [employer] 08-25-2022 14:10-0400 Body mass index (BMI) [Ratio] 58.86 kg/m2 Nuvia Cohen RN [facility] [employer] [facility] [employer] [facility] [employer] [facility], [employer] 08-25-2022 14:10-0400 Body surface area Derived from formula 2.34 m2 Nuvia Cohen RN [facility] [employer] [facility] [employer] [facility] [employer] [facility] 08-25-2022 14:10-0400 Body temperature 98.7 [degF] Nuvia Cohen RN [facility] [facility] [employer] [facility] [employer] [facility] 08-25-2022 14:10-0400 Body weight 145.97 kg Nuvia Cohen RN [facility] [employer] [facility] [employer] [facility] [employer] [facility] 08-25-2022 14:10-0400 Diastolic blood pressure 70 mm[Hg] Nuvia Cohen RN [facility] [employer] [facility] [employer] [facility] [employer] [facility] 08-25-2022 14:10-0400 Heart rate 83 /min [facility] [employer] [facility] 08-25-2022 14:10-0400 Inhaled oxygen concentration 21 % Nuvia Cohen RN [facility], [facility].; [facility]. 08-25-2022 14:10-0400 SaO2% (BldA) [Mass fraction] 97 % Nuvia Cohen RN [facility], [facility].; [facility]. 08-25-2022 14:10-0400 Systolic blood pressure 103 mm[Hg] Nuvia Cohen RN [facility], [facility].; [facility], [facility]. 06-30-2022 07:04-0400 Body height 157.48 cm [employer] Jessica Kruger [employer] Work Phone: [facility] 06-30-2022 07:04-0400 Body weight 144.24 kg [employer] Jessica Kruger [employer] Work Phone: [facility] 06-29-2022 07:27-0400 Body mass index (BMI) [Ratio] 58.1 kg/m2 [employer] Jessica Sarabiaer [employer] Work Phone: [facility] 06-12-2022 15:43-0400 Body height 157.48 cm [employer] Jessica Kruger [employer] Work Phone: [facility] 06-12-2022 15:43-0400 Body mass index (BMI) [Ratio] 58.1 kg/m2 [employer] Jessica Kruger [employer] Work Phone: [facility] 06-12-2022 15:43-0400 Body weight 144.24 kg [employer] Jessica Kruger [employer] Work Phone: [facility] 06-12-2022 15:43-0400 Diastolic blood pressure 80 mm[Hg] [employer] Jessica Sarabiaer [employer] Work Phone: [facility] 06-12-2022 15:43-0400 Heart rate 96 /min [employer] Jessica Kruger [employer] Work Phone: [facility] 06-12-2022 15:43-0400 Respiratory rate 20 /min [employer] Jessica Kruger [employer] Work Phone: [facility] 06-12-2022 15:43-0400 SaO2% (BldA) [Mass fraction] 95 % [employer] Jessica Kruger [employer] Work Phone: [facility] 06-12-2022 15:43-0400 Systolic blood pressure 124 mm[Hg] [employer] Jessica Kruger [employer] Work Phone: [facility] 05-26-2022 15:01-0400 Body height 157.48 cm Idalmis Mccall RN [facility], [employer] [facility], [facility]. 05-26-2022 15:01-0400 Body mass index (BMI) [Ratio] 58.05 kg/m2 Idalmis Mccall RN [facility] [employer] [facility], [employer] [facility], [facility]. 05-26-2022 15:01-0400 Body surface area Derived from formula 2.33 m2 Idalmis Mccall RN [facility] [employer] [facility].; [facility], [facility]. 05-26-2022 15:01-0400 Body weight 143.97 kg Idalmis Mccall RN [facility], [facility].; [facility], [facility]. 05-26-2022 15:01-0400 Diastolic blood pressure 79 mm[Hg] Idalmis Mccall RN [facility] [employer] [facility] [employer] [facility], [facility]. 05-26-2022 15:01-0400 Heart rate 80 /min Idalmis Mccall RN [facility] [employer] [facility].; [facility] [employer] [facility], [facility]. 05-26-2022 15:01-0400 Systolic blood pressure 126 mm[Hg] Idalmis Mccall RN [facility] [employer] [facility], [employer] [facility] [employer] [facility] 05-18-2022 18:14-0400 Diastolic blood pressure 78 mm[Hg] [employer] Jessica Kruger [employer] Work Phone: [facility] 05-18-2022 18:14-0400 Heart rate 94 /min [employer] Jessica Caincassyjanaeer [employer] Work Phone: [facility] 05-18-2022 18:14-0400 Respiratory rate 18 /min [employer] Jessica Hoffmantter [employer] Work Phone: [facility] 05-18-2022 18:14-0400 SaO2% (BldA) [Mass fraction] 98 % [employer] Jessica Sarabiaer [employer] Work Phone: [facility] 05-18-2022 18:14-0400 Systolic blood pressure 120 mm[Hg] [employer] Jessica Kruger [employer] Work Phone: [facility] 05-18-2022 16:17-0400 Body height 157.48 cm [employer] Jessica Sarabiaer [employer] Work Phone: [facility] 05-18-2022 16:17-0400 Body mass index (BMI) [Ratio] 57.5 kg/m2 [employer] Jessica Caincassyjanaeer [employer] Work Phone: [facility] 05-18-2022 16:17-0400 Body temperature 97.2 [degF] [employer] Jessica Sarabiaer [employer] Work Phone: [facility] 05-18-2022 16:17-0400 Body weight 142.65 kg [employer] Jessica Kruger [employer] Work Phone: [facility] 05-10-2022 13:17-0400 Body height 157.48 cm Crissy [facility]ly [facility], [facility]. 05-10-2022 13:17-0400 Body mass index (BMI) [Ratio] 57.61 kg/m2 Crissy [facility] 05-10-2022 13:17-0400 Body surface area Derived from formula 2.[address] [facility], [facility].; [facility], [facility]. 05-10-2022 13:17-0400 Body temperature 97.4 [degF] Crissy Schrader [facility], [facility].; [facility] 05-10-2022 13:17-0400 Body weight 142.88 kg Crissy Schrader [facility], [facility].; [facility], [facility]. 05-10-2022 13:17-0400 Diastolic blood pressure 76 mm[Hg] Crissy Schrader [facility], [facility].; [facility], [facility]. 05-10-2022 13:17-0400 Heart rate 91 /min Crissyvanessa Schrader [facility], [facility].; [facility], [facility]. 05-10-2022 13:17-0400 Inhaled oxygen concentration 21 % Crissyvanessa Schrader [facility], [facility].; [facility], [facility]. 05-10-2022 13:17-0400 SaO2% (BldA) [Mass fraction] 95 % Crissy Schrader [facility], [facility].; [facility], [facility]. 05-10-2022 13:17-0400 Systolic blood pressure 108 mm[Hg] Crissy Schrader [facility], [facility].; [facility]. 03-08-2022 14:04-0500 Body height 157.48 cm Idalmis Mccall RN [facility], [facility].; [facility], [facility]. 03-08-2022 14:04-0500 Body mass index (BMI) [Ratio] 55.6 kg/m2 Idalmis Mccall RN [facility], [facility].; [facility], [facility]. 03-08-2022 14:04-0500 Body surface area Derived from formula 2.28 m2 Idalmis Mccall RN [facility], [facility].; [facility], [facility]. 03-08-2022 14:04-0500 Body weight 137.89 kg Idalmis Mccall RN [facility], [facility].; [facility]. 03-08-2022 14:04-0500 Diastolic blood pressure 76 mm[Hg] Idalmis Mccall RN [facility], [facility].; [facility], [facility]. 03-08-2022 14:04-0500 Heart rate 88 /min Idalmis Mccall RN [facility], [facility].; [facility]. 03-08-2022 14:04-0500 Systolic blood pressure 116 mm[Hg] Idalmis Mccall RN [facility].; [facility], [facility]. 10-24-2021 09:04-0400 Body temperature 98 [degF] [facility] Work Phone: 10-24-2021 09:04-0400 Diastolic blood pressure 65 mm[Hg] [facility] Work Phone: 10-24-2021 09:04-0400 Heart rate 71 /min [facility] Work Phone: 10-24-2021 09:04-0400 Respiratory rate 16 /min [facility] Work Phone: 10-24-2021 09:04-0400 SaO2% (BldA) [Mass fraction] 99 % [facility] Work Phone: 10-24-2021 09:04-0400 Systolic blood pressure 108 mm[Hg] [facility] Work Phone: 10-24-2021 07:05-0400 Body height 157.48 cm [facility] Work Phone: 10-24-2021 07:05-0400 Body mass index (BMI) [Ratio] 52.2 kg/m2 [facility] Work Phone: 10-24-2021 07:05-0400 Body weight 129.6 kg [facility] Work Phone: 09-06-2021 09:17-0400 Body temperature 97.7 [degF] Pako Appiah MD Work Phone: [facility] 09-06-2021 09:17-0400 Body weight 129.5 kg Pako Appiah MD Work Phone: [facility] 09-06-2021 09:17-0400 Diastolic blood pressure 51 mm[Hg] Pako Appiah MD Work Phone: [facility] 09-06-2021 09:17-0400 Heart rate 85 /min Pako Appiah MD Work Phone: [facility] 09-06-2021 09:17-0400 SaO2% (BldA) [Mass fraction] 96 % Pako Appiah MD Work Phone: [facility] 09-06-2021 09:17-0400 Systolic blood pressure 106 mm[Hg] Pako Appiah MD Work Phone: [facility] 08-23-2021 13:32-0400 Body height 157.5 cm Pako Appiah MD Work Phone: [facility] 08-23-2021 13:32-0400 Body temperature 97.2 [degF] Pako Appiah MD Work Phone: [facility] 08-23-2021 13:32-0400 Body weight 129.5 kg Pako Appiah MD Work Phone: [facility] 08-23-2021 13:32-0400 Diastolic blood pressure 62 mm[Hg] Pako Appiah MD Work Phone: [facility] 08-23-2021 13:32-0400 Heart rate 89 /min Pako Appiah MD Work Phone: [facility] 08-23-2021 13:32-0400 SaO2% (BldA) [Mass fraction] 100 % Pako Appiah MD Work Phone: [facility] 08-23-2021 13:32-0400 Systolic blood pressure 99 mm[Hg] Pako Appiah MD Work Phone: [facility] 07-25-2021 15:37-0400 Body height 157.48 cm Nuvia Cohen RN [facility]; [facility] 07-25-2021 15:37-0400 Body mass index (BMI) [Ratio] 54.14 kg/m2 Nuvia Cohen RN [facility], [facility].; [facility] 07-25-2021 15:37-0400 Body surface area Derived from formula 2.26 m2 Nuvia Cohen RN [facility], [facility].; [facility], [facility]. 07-25-2021 15:37-0400 Body temperature 99.2 [degF] Nuvia Cohen RN [facility], [facility].; [facility], [facility]. 07-25-2021 15:37-0400 Body weight 134.27 kg Nuvia Cohen RN [facility], [facility].; [facility], [facility]. 07-25-2021 15:37-0400 Diastolic blood pressure 65 mm[Hg] Nuvia Cohen RN [facility] 07-25-2021 15:37-0400 Heart rate 90 /min Nuvia Cohen RN [facility], [facility].; [facility], [facility]. 07-25-2021 15:37-0400 Inhaled oxygen concentration 21 % Nuvia Cohen RN [facility], [facility].; [facility], [facility]. 07-25-2021 15:37-0400 SaO2% (BldA) [Mass fraction] 92 % Nuvia Cohen RN [facility], [facility].; [facility] 07-25-2021 15:37-0400 Systolic blood pressure 94 mm[Hg] Nuvia Cohen RN [facility], [facility]. 06-01-2021 13:23-0400 Body height 157.48 cm CRUZ SINCLAIR RN [facility], [facility].; [facility] 06-01-2021 13:23-0400 Body mass index (BMI) [Ratio] 54.47 kg/m2 CRUZ SINCLAIR RN [facility] 06-01-2021 13:23-0400 Body surface area Derived from formula 2.26 m2 CRUZ GRATE RN [facility], [facility].; [facility] 06-01-2021 13:23-0400 Body weight 135.08 kg CRUZ GRATE RN [facility] 06-01-2021 13:23-0400 Diastolic blood pressure 71 mm[Hg] CRUZ GRATE RN [facility] 06-01-2021 13:23-0400 Heart rate 84 /min CRUZ GRATE RN [facility], [facility].; [facility], [facility]. 06-01-2021 13:23-0400 Systolic blood pressure 106 mm[Hg] CRUZ GRATE RN [facility], [facility]. 03-09-2021 13:31-0500 Body height 157.48 cm Nuvia Cohen RN [facility] 03-09-2021 13:31-0500 Body mass index (BMI) [Ratio] 53.04 kg/m2 Nuvia Cohen RN [facility] 03-09-2021 13:31-0500 Body surface area Derived from formula 2.24 m2 Nuvia Cohen RN [facility] 03-09-2021 13:31-0500 Body temperature 98.9 [degF] Nuvia Cohen RN [facility] [employer] [facility] 03-09-2021 13:31-0500 Body weight 131.54 kg Nuvia Cohen RN [facility] [employer] [facility] 03-09-2021 13:31-0500 Diastolic blood pressure 69 mm[Hg] Nuvia Cohen RN [facility] [employer] [facility] 03-09-2021 13:31-0500 Heart rate 90 /min Nuvia Cohen RN [facility] 03-09-2021 13:31-0500 Inhaled oxygen concentration 21 % Nuvia Cohen RN [facility] 03-09-2021 13:31-0500 SaO2% (BldA) [Mass fraction] 98 % Nuvia Cohen RN [facility] 03-09-2021 13:31-0500 Systolic blood pressure 101 mm[Hg] Nuvia Cohen RN [facility] 11-24-2020 13:42-0400 Diastolic blood pressure 81 mm[Hg] Idalmis Mccall RN [facility] 11-24-2020 13:42-0400 Heart rate 82 /min Idalmis Mccall RN [facility] 11-24-2020 13:42-0400 Inhaled oxygen concentration 21 % Idalmis Mccall RN [facility] 11-24-2020 13:42-0400 SaO2% (BldA) [Mass fraction] 96 % Idalmis Mccall RN [facility] 11-24-2020 13:42-0400 Systolic blood pressure 124 mm[Hg] Idalmis Mccall RN [facility] 10-27-2020 10:27-0400 Body height 157.48 cm Nuvia Cohen RN [facility] 10-27-2020 10:27-0400 Body mass index (BMI) [Ratio] 54.87 kg/m2 Nvuia Cohen RN [facility] 10-27-2020 10:27-0400 Body surface area Derived from formula 2.27 m2 Nuvia Cohen RN [facility] 10-27-2020 10:27-0400 Body weight 136.08 kg Nuvia Cohen RN [facility] 10-27-2020 10:27-0400 Diastolic blood pressure 65 mm[Hg] Nuvia Cohen RN [facility] 10-27-2020 10:27-0400 Heart rate 80 /min Nuvia Cohen RN [facility] 10-27-2020 10:27-0400 Inhaled oxygen concentration 21 % Nuvia Cohen RN [facility] 10-27-2020 10:27-0400 SaO2% (BldA) [Mass fraction] 97 % Nuvia Cohen RN [facility] 10-27-2020 10:27-0400 Systolic blood pressure 99 mm[Hg] Nuvia Cohen RN [facility] 07-30-2020 10:12-0400 Body height 157.48 cm Nuvia Cohen RN [facility] 07-30-2020 10:12-0400 Body mass index (BMI) [Ratio] 57.61 kg/m2 Nuvia Cohen RN [facility] 07-30-2020 10:12-0400 Body surface area Derived from formula 2.32 m2 Nuvia Cohen RN [facility], [facility]. 07-30-2020 10:12-0400 Body weight 142.88 kg Nuvia Cohen RN [facility] [employer] [facility] 07-30-2020 10:12-0400 Diastolic blood pressure 82 mm[Hg] Nuvia Cohen RN [facility] 07-30-2020 10:12-0400 Heart rate 75 /min Nuvia Cohen RN [facility], [facility]. 07-30-2020 10:12-0400 Systolic blood pressure 133 mm[Hg] Nuvia Cohen RN [facility] 07-21-2020 09:21-0400 Body height 157.48 cm Idalmis Mccall RN [facility] [employer] [facility] 07-21-2020 09:21-0400 Body mass index (BMI) [Ratio] 58.27 kg/m2 Idalmis Mccall RN [facility], [facility]. 07-21-2020 09:21-0400 Body surface area Derived from formula 2.33 m2 Idalmis Mccall RN [facility] [employer] [facility], [facility]. 07-21-2020 09:21-0400 Body temperature 98.2 [degF] Idalmis Mccall RN [facility] [employer] [facility], [facility]. 07-21-2020 09:21-0400 Body weight 144.52 kg Idalmis Mccall RN [facility] [employer] [facility] 07-21-2020 09:21-0400 Diastolic blood pressure 85 mm[Hg] Idalmis Mccall RN [facility] [employer] [facility] [employer] [facility], [facility]. 07-21-2020 09:21-0400 Heart rate 88 /min Idalmis Mccall RN [facility] [employer] [facility], [facility]. 07-21-2020 09:21-0400 Systolic blood pressure 119 mm[Hg] Idalmis Mccall RN [facility] [employer] [facility] [employer] [facility] 05-31-2020 10:40-0400 Body height 157.48 cm Milady Rivera RN [facility] [employer] [facility] [employer] [facility] 05-31-2020 10:40-0400 Body mass index (BMI) [Ratio] 57.98 kg/m2 Milady Rivera RN [facility], [facility]. 05-31-2020 10:40-0400 Body surface area Derived from formula 2.32 m2 Milady Rivera RN [facility] 05-31-2020 10:40-0400 Body temperature 98.1 [degF] Milady Rivera RN [facility], [facility]. 05-31-2020 10:40-0400 Body weight 143.79 kg Milady Rivera RN [facility], [facility].; [facility], [facility]. 05-31-2020 10:40-0400 Diastolic blood pressure 79 mm[Hg] Milady Rivera RN [facility], [facility]. 05-31-2020 10:40-0400 Heart rate 84 /min Milady Rivera RN [facility], [facility].; [facility], [facility]. 05-31-2020 10:40-0400 Inhaled oxygen concentration 21 % Milady Rivera RN [facility], [facility].; [facility] 05-31-2020 10:40-0400 SaO2% (BldA) [Mass fraction] 96 % Milady Rivera RN [facility], [facility]. 05-31-2020 10:40-0400 Systolic blood pressure 128 mm[Hg] Milady Rivera RN [facility], [facility]. 05-18-2020 11:07-0400 Body height 157.48 cm Milady Rivera RN [facility] 05-18-2020 11:07-0400 Body mass index (BMI) [Ratio] 58.35 kg/m2 Milady Rivera RN [facility]. 05-18-2020 11:07-0400 Body surface area Derived from formula 2.33 m2 Milady Rivera RN [facility], [facility].; [facility], [facility]. 05-18-2020 11:07-0400 Body temperature 97.8 [degF] Milady Rivera RN [facility], [facility]. 05-18-2020 11:07-0400 Body weight 144.7 kg Milady Rivera RN [facility], [facility].; [facility], [facility]. 05-18-2020 11:07-0400 Diastolic blood pressure 81 mm[Hg] Milady Rivera RN [facility], [facility].; [facility], [facility]. 05-18-2020 11:07-0400 Heart rate 92 /min Milady Rivera RN [facility], [facility].; [facility], [facility]. 05-18-2020 11:07-0400 Systolic blood pressure 127 mm[Hg] Milady Rivera RN [facility], [facility]. 02-12-2020 10:44-0500 Body height 157.48 cm Milady Rivera RN [facility], [facility].; [facility], [facility]. 02-12-2020 10:44-0500 Body mass index (BMI) [Ratio] 54.87 kg/m2 Milady Rivera RN [facility], [facility]. 02-12-2020 10:44-0500 Body surface area Derived from formula 2.27 m2 Milady Rivera RN [facility], [facility].; [facility], [facility]. 02-12-2020 10:44-0500 Body weight 136.08 kg Milady Rivera RN [facility], [facility].; [facility], [facility]. 02-12-2020 10:44-0500 Diastolic blood pressure 70 mm[Hg] Milady Rivera RN [facility], [facility]. 02-12-2020 10:44-0500 Heart rate 87 /min Milady Rivera RN [facility], [facility].; [facility] 02-12-2020 10:44-0500 Systolic blood pressure 105 mm[Hg] Milady Rivera RN [facility], [facility]. 01-09-2020 11:38-0500 Body height 157.48 cm Milady Rivera RN [facility], [facility]. 01-09-2020 11:38-0500 Body mass index (BMI) [Ratio] 54.69 kg/m2 Milady Rivera RN [facility] 01-09-2020 11:38-0500 Body surface area Derived from formula 2.27 m2 Milady Rivera RN [facility], [facility]. 01-09-2020 11:38-0500 Body temperature 98.6 [degF] Milady Rivera RN [facility], [facility]. 01-09-2020 11:38-0500 Body weight 135.63 kg Milady Rivera RN [facility], [facility]. 12-01-2019 15:15-0400 Body height 157.48 cm Nuvia Cohen RN [facility], [facility]. 12-01-2019 15:15-0400 Body mass index (BMI) [Ratio] 54.69 kg/m2 Nuvia Cohen RN [facility], [facility]. 12-01-2019 15:15-0400 Body surface area Derived from formula 2.27 m2 Nuvia Cohen RN [facility] 12-01-2019 15:15-0400 Body temperature 98 [degF] Nuvia Cohen RN [facility] 12-01-2019 15:15-0400 Body weight 135.63 kg Nuvia Cohen RN [facility] 12-01-2019 15:15-0400 Diastolic blood pressure 65 mm[Hg] Nuvia Cohen RN [facility] 12-01-2019 15:15-0400 Heart rate 87 /min Nuvia Cohen RN [facility] 12-01-2019 15:15-0400 Systolic blood pressure 96 mm[Hg] Nuvia Cohen RN [facility] 11-06-2019 10:54-0400 Body height 157.48 cm Milady Rivera RN [facility] 11-06-2019 10:54-0400 Body mass index (BMI) [Ratio] 56.33 kg/m2 Milady Rivera RN [facility] 11-06-2019 10:54-0400 Body surface area Derived from formula 2.3 m2 Milady Rivera RN [facility] 11-06-2019 10:54-0400 Body weight 139.71 kg Milady Rivera RN [facility] 11-06-2019 10:54-0400 Diastolic blood pressure 77 mm[Hg] Milady Rivera RN [facility] 11-06-2019 10:54-0400 Heart rate 84 /min Milady Rivera RN [facility] [employer] [facility] 11-06-2019 10:54-0400 Systolic blood pressure 113 mm[Hg] Milady Rivera RN [facility] [employer] [facility] 04-14-2019 10:28-0400 Body height 157.48 cm Nuvia Cohen RN [facility] 04-14-2019 10:28-0400 Body mass index (BMI) [Ratio] 55.05 kg/m2 Nuvia Cohen RN [facility] 04-14-2019 10:28-0400 Body surface area Derived from formula 2.27 m2 Nuvia Cohen RN [facility] 04-14-2019 10:28-0400 Body temperature 97.9 [degF] Nuvia Cohen RN [facility] 04-14-2019 10:28-0400 Body weight 136.53 kg Nuvia Cohen RN [facility] 04-14-2019 10:28-0400 Diastolic blood pressure 83 mm[Hg] Nuvia Cohen RN [facility] 04-14-2019 10:28-0400 Heart rate 91 /min Nuvia Cohen RN [facility] 04-14-2019 10:28-0400 Systolic blood pressure 127 mm[Hg] Nuvia Cohen RN [facility] 04-02-2018 10:50-0500 Body height 157.48 cm Idalmis Mccall RN [facility] [employer] [facility] [employer] [facility] 04-02-2018 10:50-0500 Body mass index (BMI) [Ratio] 55.97 kg/m2 Idalmis Mccall RN [facility] [employer] [facility] [employer] [facility] 04-02-2018 10:50-0500 Body surface area Derived from formula 2.29 m2 Idalmis Mccall RN [facility] [employer] [facility] [employer] [facility] 04-02-2018 10:50-0500 Body weight 138.8 kg Idalmis Mccall RN [facility] [employer] [facility] [employer] [facility] 04-02-2018 10:50-0500 Diastolic blood pressure 77 mm[Hg] Idalmis Mccall RN [facility] [facility] [employer] [facility] 04-02-2018 10:50-0500 Heart rate 93 /min Idalmis Mccall RN [facility] [employer] [facility] [employer] [facility] 04-02-2018 10:50-0500 Systolic blood pressure 110 mm[Hg] Idalmis Mccall RN [facility] [employer] [facility] [employer] [facility] 03-21-2018 09:48-0500 Body height 157.48 cm Milady Rivera RN [facility] [employer] [facility] [employer] [facility] 03-21-2018 09:48-0500 Body mass index (BMI) [Ratio] 54.14 kg/m2 Milady Rivera [facility] [employer] [facility] 03-21-2018 09:48-0500 Body surface area Derived from formula 2.26 m2 Milady Rivera RN [facility] [employer] [facility] 03-21-2018 09:48-0500 Body temperature 97.6 [degF] Milady Rivera RN [facility] [employer] [facility] [employer] [facility] 03-21-2018 09:48-0500 Body weight 134.27 kg Milady Rivera RN [facility] [employer] [facility] 03-21-2018 09:48-0500 Diastolic blood pressure 85 mm[Hg] Milady Rivera RN [facility] [employer] [facility] [employer] [facility] [employer]. 03-21-2018 09:48-0500 Heart rate 83 /min Milady Rivera RN [facility].; [employer] [facility] [employer] [facility], [employer]ionic. 03-21-2018 09:48-0500 Systolic blood pressure 152 mm[Hg] Milady Rivera [facility] [employer] 10-01-2017 11:03-0400 Body height 157.48 cm JESSICA MONTELONGOGociety-Share Your Brain Work Phone: [facility] HospitalTelunjuk.; [employer] [facility] [employer], [employer] 10-01-2017 11:03-0400 Body mass index (BMI) [Ratio] 52.49 kg/m2 JESSICA [employer] Work Phone: [facility].; [facility] [employer], [employer]. 10-01-2017 11:03-0400 Body surface area Derived from formula 2.23 m2 JESSICA [employer] Work Phone: [facility] [employer] [place] [employer] [facility] [employer], [employer] 10-01-2017 11:03-0400 Body weight 130.18 kg JESSICA [employer] Work Phone: [facility].; [facility] [facility] [employer], [employer]. 09-15-2017 11:01-0400 Body height 157.48 cm [facility] [employer].; [facility] [employer], [employer]. 09-15-2017 11:01-0400 Body mass index (BMI) [Ratio] 52.49 kg/m2 [facility] [employer], Inc.; [facility] [employer], [employer]. 09-15-2017 11:01-0400 Body surface area Derived from formula 2.23 m2 [facility] [employer] Inc.; [facility] [employer], [employer]. 09-15-2017 11:01-0400 Body weight 130.18 kg [facility] [employer], [employer].; [facility] [employer], [employer]. 09-15-2017 11:01-0400 Diastolic blood pressure 79 mm[Hg] [facility] [employer], [employer].; [place] [employer] [facility] [employer], [employer] 09-15-2017 11:01-0400 Heart rate 83 /min [facility] [employer], [employer].; [facility] [employer] [facility] 09-15-2017 11:01-0400 Systolic blood pressure 116 mm[Hg] RADHA MILLER [facility].; [facility] [employer] [facility] 09-12-2017 10:12-0400 Body height 157.48 cm Idalmis Mccall RN [facility] [employer] [facility] [employer] [facility] 09-12-2017 10:12-0400 Body mass index (BMI) [Ratio] 52.86 kg/m2 Idalmis Mccall RN [facility] [employer] [facility] [employer] [facility] 09-12-2017 10:12-0400 Body surface area Derived from formula 2.24 m2 Idalmis Mccall RN [facility] [employer] [facility] [employer] [facility] 09-12-2017 10:12-0400 Body temperature 98.4 [degF] Idalmis Mccall RN [facility] [employer] [facility] [employer] [facility] 09-12-2017 10:12-0400 Body weight 131.09 kg Idalmis Mccall RN [facility] [facility] [employer] [facility] 09-12-2017 10:12-0400 Diastolic blood pressure 74 mm[Hg] Idalmis Mccall RN [facility] [employer] [facility] [employer] [facility] 09-12-2017 10:12-0400 Heart rate 86 /min Idalmis Mccall RN [facility] [employer] [facility] [employer] [facility] 09-12-2017 10:12-0400 Systolic blood pressure 103 mm[Hg] Idalmis Mccall RN [facility] [employer] [facility] [employer] 07-17-2017 09:53-0400 Body height 155.57 cm Idalmis Mccall RN [facility] [employer] [facility] [employer] [facility] 07-17-2017 09:53-0400 Body mass index (BMI) [Ratio] 54.72 kg/m2 Idalmis Mccall RN [facility] [employer] [facility] [employer], [employer] 07-17-2017 09:53-0400 Body surface area Derived from formula 2.23 m2 Idalmis Mccall RN [facility] [employer] [facility].; [facility], Inc. 07-17-2017 09:53-0400 Body weight 132.45 kg Idalmis Mccall RN [facility], Inc.; [facility], Inc[facility] 07-17-2017 09:53-0400 Diastolic blood pressure 81 mm[Hg] Idalmis Mccall RN [facility], Inc.; [facility] Inc[facility] 07-17-2017 09:53-0400 Heart rate 94 /min Idalmis Mccall RN [facility], [facility].; [facility] Inc[facility] 07-17-2017 09:53-0400 Systolic blood pressure 122 mm[Hg] Idalmis Mccall RN [facility], Inc.; [facility], Inc[facility] 06-25-2017 10:34-0400 Body height 155.57 cm Milady Rivera RN [facility] [employer] [facility], Inc. 06-25-2017 10:34-0400 Body mass index (BMI) [Ratio] 55.66 kg/m2 Milady Rivera RN [facility] [employer] [facility], Inc. 06-25-2017 10:34-0400 Body surface area Derived from formula 2.24 m2 Milady Rivera RN [facility] [employer] [facility], Inc. 06-25-2017 10:34-0400 Body weight 134.72 kg Milady Rivera RN [facility] [employer] [facility] [employer] [facility] 06-25-2017 10:34-0400 Diastolic blood pressure 74 mm[Hg] Milady Rivera RN [facility] [employer] [facility] [employer] [facility] 06-25-2017 10:34-0400 Heart rate 91 /min Milady Rivera RN [facility] [employer] [facility] [employer] [facility] 06-25-2017 10:34-0400 Systolic blood pressure 105 mm[Hg] Milady Rivera RN [facility] [employer] [facility]ent.; [facility] [employer] [facility] 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 Work Phone: [facility]ent.; [facility] [employer] [facility] 06-07-2017 10:28-0400 Body mass index (BMI) [Ratio] 55.85 kg/m2 JESSICA [employer] Work Phone: [facility].; [facility] [employer] [facility] 06-07-2017 10:28-0400 Body surface area Derived from formula 2.24 m2 JESSICA [employer] Work Phone: [facility].; [facility] [employer] [facility] 06-07-2017 10:28-0400 Body weight 135.17 kg JESSICA [employer] Work Phone: [facility].; [facility] [employer] [facility] 05-25-2017 18:09-0400 Body height 155.57 cm Jessica Beaulieu [facility] [employer] [facility].; [facility] [employer] [facility] 05-25-2017 18:09-0400 Body mass index (BMI) [Ratio] 55.85 kg/m2 Jessica Lynn Beaulieu [facility] [employer] [facility].; [facility] [employer] [facility] 05-25-2017 18:09-0400 Body surface area Derived from formula 2.24 m2 Jessica Lynn Beaulieu [facility] [employer] [facility].; [facility] [employer] [facility] 05-25-2017 18:09-0400 Body temperature 98 [degF] Jessica Beaulieu [facility] [employer] [facility] [employer] [facility] 05-25-2017 18:09-0400 Body weight 135.17 kg Jessica Lynn [facility] [employer] [facility].; [facility] 05-25-2017 18:09-0400 Diastolic blood pressure 78 mm[Hg] Jessica A [facility] [employer] [facility].; [employer] [facility] [employer] [facility] 05-25-2017 18:09-0400 Heart rate 98 /min Jessica Beaulieu [facility] [employer] [facility] [employer] [facility] Che[employer] [facility] 05-25-2017 18:09-0400 Systolic blood pressure 117 mm[Hg] Jessica Beaulieu [facility] [employer] [facility].; [employer] [facility] [employer] [facility] 05-17-2017 10:22-0400 Body height 155.57 cm Idalmis Mccall RN [facility] [employer] [facility].; [employer] [facility] [employer] [facility] 05-17-2017 10:22-0400 Body mass index (BMI) [Ratio] 55.66 kg/m2 Idalmis Mccall RN [facility] [employer] [facility].; [employer] [facility] [employer] [facility] 05-17-2017 10:22-0400 Body surface area Derived from formula 2.24 m2 Idalmis Mccall RN [facility] [employer] [facility].; [employer] [facility] [employer] [facility] [employer] 05-17-2017 10:22-0400 Body temperature 98.3 [degF] Idalmis Mccall RN [facility] [employer] [facility].; [employer] [facility] [employer] [facility] [employer] 05-17-2017 10:22-0400 Body weight 134.72 kg Idalmis Mccall RN [facility] [employer] [facility].; [employer] [facility] [employer] [facility] 05-17-2017 10:22-0400 Diastolic blood pressure 73 mm[Hg] Idalmis Mccall RN [facility] [employer] [facility].; [employer] [facility] [employer], [employer] 05-17-2017 10:22-0400 Heart rate 86 /min Idalmis Mccall RN [facility] [employer] [facility].; [employer] [facility] [employer], [employer]. 05-17-2017 10:22-0400 Systolic blood pressure 108 mm[Hg] Idalmis Mccall RN [facility] [employer] [facility] [employer] [facility] [employer], [employer] 04-27-2017 18:57-0400 Body height 155.57 cm Bryan ISSA MD Work Phone: [facility] [employer] 04-27-2017 18:57-0400 Body mass index (BMI) [Ratio] 55.1 kg/m2 Bryan ISSA MD Work Phone: [employer]; [employer]. 04-27-2017 18:57-0400 Body surface area Derived from formula 2.23 m2 Bryan ISSA MD Work Phone: [employer]; [employer]. 04-27-2017 18:57-0400 Body temperature 97.9 [degF] Bryan ISSA MD Work Phone: [employer]; [employer]. 04-27-2017 18:57-0400 Body weight 133.36 kg Bryan ISSA MD Work Phone: [employer]; [employer]. 04-27-2017 18:57-0400 Diastolic blood pressure 77 mm[Hg] Bryan ISSA MD Work Phone: [employer]; [employer]. 04-27-2017 18:57-0400 Heart rate 92 /min Bryan ISSA MD Work Phone: [employer]; [employer]. 04-27-2017 18:57-0400 Inhaled oxygen concentration 21 % Bryan ISSA MD Work Phone: [employer]; [employer]. 04-27-2017 18:57-0400 SaO2% (BldA) [Mass fraction] 98 % Bryan ISSA MD Work Phone: [employer]; [employer]. 04-27-2017 18:57-0400 Systolic blood pressure 138 mm[Hg] Bryan ISSA MD Work Phone: [employer]; [employer] [place] [employer] [facility] 04-21-2017 08:52-0400 Body height 155.57 cm Jessica Chew [employer] [facility] [employer] [facility] 04-21-2017 08:52-0400 Body mass index (BMI) [Ratio] 55.1 kg/m2 Jessica MartiniKnowl [facility].; [facility] Gonzalo [employer] [facility] 04-21-2017 08:52-0400 Body surface area Derived from formula 2.23 m2 Jessica Sánchez [employer] [facility].; [facility] Gonzalo [employer] [facility] 04-21-2017 08:52-0400 Body temperature 98.2 [degF] Jessica Lynn Beaulieu [employer] [facility].; [facility] Gonzalo [employer] [facility] 04-21-2017 08:52-0400 Body weight 133.36 kg Jessica Lynn Beaulieu Gonzalo MartiniKnowl [facility].; [facility] Gonzalo [employer] [facility] 04-21-2017 08:52-0400 Diastolic blood pressure 74 mm[Hg] Jessica MartiniKnowl [facility].; [facility] Gonzalo [employer] [facility] 04-21-2017 08:52-0400 Heart rate 94 /min Jessica Chew [employer] [facility] Gonzalo [employer] [facility] 04-21-2017 08:52-0400 Systolic blood pressure 110 mm[Hg] Jessica Sánchez [employer] [facility].; [facility] Gonzalo [employer] [facility] 03-23-2017 19:48-0500 Body height 155.57 cm JESSICA MONTELONGOBlu Wireless TechnologyP-C Work Phone: [employer].; [facility] Gonzalo [employer], [employer] 03-23-2017 19:48-0500 Body mass index (BMI) [Ratio] 54.05 kg/m2 JESSICA MONTELONGOBlu Wireless TechnologyP-C Work Phone: [employer], [employer].; [facility] [employer], [employer] 03-23-2017 19:48-0500 Body surface area Derived from formula 2.21 m2 JESSICA SARABIAER GARDEN LABOURER-C Work Phone: [employer].; [employer]. 03-23-2017 19:48-0500 Body temperature 97.8 [degF] JESSICA SARABIAER GARDEN LABOURER-C Work Phone: [employer].; [employer] [facility] [employer]. 03-23-2017 19:48-0500 Body weight 130.82 kg JESSICA SARABIAER GARDEN LABOURER-C Work Phone: [employer].; [employer] [facility] [employer]. 03-23-2017 19:48-0500 Diastolic blood pressure 74 mm[Hg] JESSICA SARABIAER GARDEN LABOURER-C Work Phone: [employer].; [employer] [facility] [employer]. 03-23-2017 19:48-0500 Heart rate 84 /min JESSICA SARABIAER GARDEN LABOURER-C Work Phone: [employer].; [employer] [facility] [employer]. 03-23-2017 19:48-0500 Systolic blood pressure 108 mm[Hg] JESSICA SARABIAER GARDEN LABOURER-C Work Phone: [employer].; [employer] [facility] [employer]. 02-09-2017 17:57-0500 Body height 155.57 cm EJSSICA KRUGER GARDEN LABOURER-C Work Phone: [employer].; [employer]. 02-09-2017 17:57-0500 Body mass index (BMI) [Ratio] 52.66 kg/m2 JESSICA KRUGER GARDEN LABOURER-C Work Phone: [employer].; [employer]. 02-09-2017 17:57-0500 Body surface area Derived from formula 2.19 m2 JESSICA SARABIAER GARDEN LABOURER-C Work Phone: [employer].; [employer] 02-09-2017 17:57-0500 Body weight 127.46 kg JESSICA SARABIARACHNA GARDEN LABOURER-C Work Phone: [facility] [employer].; [employer] 02-09-2017 17:57-0500 Diastolic blood pressure 81 mm[Hg] JESSICA HOFFMANANGEL GARDEN LABOURER-C Work Phone: [facility] [employer].; [employer] 02-09-2017 17:57-0500 Heart rate 102 /min JESSICA TIFFANYCASSYANGEL GARDEN LABOURER-C Work Phone: [employer].; [employer], [employer] 02-09-2017 17:57-0500 Systolic blood pressure 126 mm[Hg] JESSICA REGINALDARJUNCASSYANGEL GARDEN LABOURER-C Work Phone: [facility] [employer].; [employer] 01-04-2017 11:02-0500 Body height 155.57 cm Milady Rivera RN [facility] [employer], [employer].; [employer], [employer] 01-04-2017 11:02-0500 Body mass index (BMI) [Ratio] 52.66 kg/m2 Milady Rivera RN [facility] [employer] [facility] [employer] [facility] [employer], [employer] 01-04-2017 11:02-0500 Body surface area Derived from formula 2.19 m2 Milady Rivera RN [facility] [employer], [employer].; [employer] 01-04-2017 11:02-0500 Body weight 127.46 kg Milady Rivera RN [facility] [employer], [employer].; [employer], [employer] 01-04-2017 11:02-0500 Diastolic blood pressure 81 mm[Hg] Milady Rivera RN [facility] [employer].; [employer] 01-04-2017 11:02-0500 Heart rate 90 /min Milady Rivera RN [facility] [employer] [facility] [employer] [facility] [employer] [facility] 01-04-2017 11:02-0500 Systolic blood pressure 114 mm[Hg] Milady Rivera RN [facility], Inc.; [employer] [facility] Che[employer] [facility] 12-27-2016 16:15-0500 Body height 155.57 cm Idalmis Mccall RN [facility], Inc.; [facility] [employer] [facility] 12-27-2016 16:15-0500 Body mass index (BMI) [Ratio] 52.47 kg/m2 Idalmis Mccall RN [facility] [employer] [facility] [employer] [facility] [employer] [facility] 12-27-2016 16:15-0500 Body surface area Derived from formula 2.19 m2 Idalmis Mccall RN [facility], Inc.; [employer] [facility] Che[employer] [facility] 12-27-2016 16:15-0500 Body temperature 97.5 [degF] Idalmis Mccall RN [facility] [employer] [facility].; [employer] [facility] [employer] [facility] 12-27-2016 16:15-0500 Body weight 127.01 kg Idalmis Mccall RN [facility] [employer] [facility].; [facility] [employer] [facility] 12-27-2016 16:15-0500 Diastolic blood pressure 81 mm[Hg] Idalmis Mccall RN [facility] [employer] [facility].; [employer] [facility] [employer] [facility] 12-27-2016 16:15-0500 Heart rate 98 /min Idalmis Mccall RN [facility] [employer] [facility] [employer] [facility] 12-27-2016 16:15-0500 Inhaled oxygen concentration 21 % Idalmis Mccall RN [facility] [employer] [facility].; [employer] [facility] [employer] [facility] 12-27-2016 16:15-0500 SaO2% (BldA) [Mass fraction] 97 % Idalmis Mccall RN [facility] [employer] [facility].; [employer] [facility] Che[employer] [facility] 12-27-2016 16:15-0500 Systolic blood pressure 127 mm[Hg] Idalmis Mccall RN [facility] [employer] [facility].; [facility] [employer] [facility] 12-01-2016 10:52-0400 Body height 155.57 cm Jessica Sánchez [employer] [facility].; [facility] [employer] [facility] 12-01-2016 10:52-0400 Body mass index (BMI) [Ratio] 51.54 kg/m2 Jessica Sánchez [employer] [facility] Inc.; [facility] [employer] [facility] 12-01-2016 10:52-0400 Body surface area Derived from formula 2.17 m2 Jessica Lynn [facility] [employer] [facility].; [facility] [employer] [facility] 12-01-2016 10:52-0400 Body weight 124.74 kg Jessica Lynn Beaulieu Gonzalo [employer] [facility] Inc.; [facility] Che[employer] [facility] 12-01-2016 10:52-0400 Diastolic blood pressure 78 mm[Hg] Jessica Lynn [facility] [employer] [facility] Inc.; [facility] Che[employer] [facility] 12-01-2016 10:52-0400 Heart rate 87 /min Jessica Lynn Beaulieu Gonzalo [employer] [facility] Inc.; [facility] [employer] [facility] 12-01-2016 10:52-0400 Systolic blood pressure 118 mm[Hg] Jessica Lynn Beaulieu Gonzalo [employer] [facility] Inc.; [facility] [facility] [employer] [facility] Inc[facility] 10-19-2016 11:20-0400 Body height 155.57 cm Milady Rivera RN [facility] [employer] [facility], [facility].; [facility] [employer] [facility] 10-19-2016 11:20-0400 Body mass index (BMI) [Ratio] 50.6 kg/m2 Milady Rivera RN [facility] [employer] [facility].; [facility] [employer], [employer] 10-19-2016 11:20-0400 Body surface area Derived from formula 2.15 m2 Milady Rivera RN [facility] [employer], Inc.; [facility] [employer], [employer]. 10-19-2016 11:20-0400 Body weight 122.47 kg Milady Rivera RN [facility] [employer], Inc.; [facility] [employer], Inc. 10-19-2016 11:20-0400 Diastolic blood pressure 81 mm[Hg] [facility].; [facility] [employer] [facility] Inc. 10-19-2016 11:20-0400 Heart rate 87 /min Milady Rivera RN [facility] [employer] [facility], [facility].; [facility] [employer] [facility]. 10-19-2016 11:20-0400 Systolic blood pressure 134 mm[Hg] Milady Rivera RN [facility].; [facility] [employer] [facility] 09-12-2016 10:46-0400 Body height 155.57 cm Idalmis Mccall RN [facility] [employer] [facility], [facility].; [facility] [employer] [facility] 09-12-2016 10:46-0400 Body mass index (BMI) [Ratio] 50.23 kg/m2 Idalmis Mccall RN [facility], [facility].; [facility] [employer] [facility] 09-12-2016 10:46-0400 Body surface area Derived from formula 2.15 m2 Idalmis Mccall RN [facility], Inc.; [facility] [employer] [facility] 09-12-2016 10:46-0400 Body weight 121.56 kg Idalmis Mccall RN [facility], Inc.; [facility] [employer] [facility] 09-12-2016 10:46-0400 Diastolic blood pressure 65 mm[Hg] Idalmis Mccall RN [facility] [employer] [facility], [facility].; [facility] [employer] [facility]. 09-12-2016 10:46-0400 Heart rate 85 /min Idalmis Mccall RN [facility].; [facility] [employer] [facility] Inc. 09-12-2016 10:46-0400 Systolic blood pressure 111 mm[Hg] Idalmis Mccall RN [facility] [employer] [facility], [facility].; [facility] [employer], Inc. 09-06-2016 10:01-0400 Body height 155.57 cm JESSICA SHAW-C Work Phone: [facility] [employer] [facility] [employer], [employer]. 09-06-2016 10:01-0400 Body mass index (BMI) [Ratio] 50.23 kg/m2 JESSICA Cruse Environmental TechnologyER GARDEN LABOURER-C Work Phone: [facility] [employer].; [facility] [employer]. 09-06-2016 10:01-0400 Body surface area Derived from formula 2.15 m2 JESSICA CAINAccuradioER GARDEN LABOURER-C Work Phone: [facility] [employer].; [facility] [employer] Inc. 09-06-2016 10:01-0400 Body temperature 98 [degF] JESSICA MONTELONGOBostInnoER GARDEN LABOURER-C Work Phone: [facility] [employer].; [facility] [employer]. 09-06-2016 10:01-0400 Body weight 121.56 kg JESSICA Cruse Environmental TechnologyER GARDEN LABOURER-C Work Phone: [facility] [employer].; [facility] Center[facility] [employer] Inc. 09-06-2016 10:01-0400 Diastolic blood pressure 70 mm[Hg] JESSICA Cruse Environmental TechnologyER GARDEN LABOURER-C Work Phone: [facility] [employer].; [facility] [employer]. 09-06-2016 10:01-0400 Heart rate 78 /min JESSICA Cruse Environmental TechnologyER GARDEN LABOURER-C Work Phone: [facility] [employer].; [facility] [employer]. 09-06-2016 10:01-0400 Systolic blood pressure 102 mm[Hg] JESSICA Cruse Environmental TechnologyER GARDEN LABOURER-C Work Phone: [facility] [employer].; [facility] [employer]. 08-14-2016 11:22-0400 Body height 155.57 cm Milady Rivera RN [employer].; [facility] [employer]. 08-14-2016 11:22-0400 Body mass index (BMI) [Ratio] 50.41 kg/m2 Milady Rivera RN [facility] [employer] [facility] [employer] [facility] 08-14-2016 11:22-0400 Body surface area Derived from formula 2.15 m2 Milady Rivera RN [facility], Inc.; [facility], Inc. 08-14-2016 11:22-0400 Body weight 122.02 kg Milady Rivera RN [facility], Inc.; [facility], Inc. 08-14-2016 11:22-0400 Diastolic blood pressure 74 mm[Hg] Milady Rivera RN [facility], Inc.; [facility] [employer] [facility] 08-14-2016 11:22-0400 Heart rate 82 /min Milady Rivera RN [facility] [employer] [facility], [facility].; [facility], Inc. 08-14-2016 11:22-0400 Systolic blood pressure 111 mm[Hg] Milady Rivera RN [facility] [employer] [facility].; [facility] [employer] [facility] 06-19-2016 09:0400 Body height 155.57 cm Milady Rivera RN [facility] [employer] [facility].; [facility] [employer] [facility] 06-19-2016 09:26-0400 Body mass index (BMI) [Ratio] 48.91 kg/m2 Milady Rivera RN [facility] [employer] [facility].; [facility] [employer] [facility] 06-19-2016 09:260400 Body surface area Derived from formula 2.12 m2 Milady Rivera RN [facility] [employer] [facility].; [facility] [employer] [facility] 06-19-2016 09:26-0400 Body temperature 98 [degF] Milady Rivera RN [facility] [employer] [facility].; [facility] [employer] [facility] 06-19-2016 09:0400 Body weight 118.39 kg Milady Rivera RN [facility] [employer] [facility].; [facility] [employer] [facility] 06-19-2016 09:26-0400 Diastolic blood pressure 79 mm[Hg] Milady Rivera RN [facility] [employer] [facility].; [facility] [employer] [facility]. 06-19-2016 09:26-0400 Heart rate 83 /min Milady Rivera RN [facility] [employer] [facility].; [facility] [employer] [facility]. 06-19-2016 09:26-0400 Systolic blood pressure 118 mm[Hg] Milady Rivera RN [facility] [employer] [facility].; [employer] [facility] [employer] [facility] Inc. 04-17-2016 09:57-0400 Body height 155.57 cm Nuvia Cohen RN [facility] [employer] [facility].; [facility] [employer] [facility]. 04-17-2016 09:57-0400 Body mass index (BMI) [Ratio] 48.16 kg/m2 Nuvia Cohen RN [facility] [employer] [facility].; [facility] [employer] [facility] 04-17-2016 09:57-0400 Body surface area Derived from formula 2.11 m2 Nuvia Cohen RN [facility] [employer] [facility].; [facility] [employer] [facility], [employer]. 04-17-2016 09:57-0400 Body temperature 98.2 [degF] Nuvia Cohen RN [facility] [employer] [facility], [facility].; [facility] [employer] [facility], [employer]. 04-17-2016 09:57-0400 Body weight 116.58 kg Nuvia Cohen RN [facility] [employer] [facility].; [facility] [employer] [facility]. 04-17-2016 09:57-0400 Diastolic blood pressure 75 mm[Hg] Nuvia Cohen RN [facility] [employer] [facility].; [facility] [employer] [facility]. 04-17-2016 09:57-0400 Heart rate 85 /min Nuvia Cohen RN [facility] [employer] [facility].; [facility] [employer] [facility], [employer]. 04-17-2016 09:57-0400 Inhaled oxygen concentration 21 % Nuvia Cohen RN [facility] [employer] [facility] [employer] [facility]. 04-17-2016 09:57-0400 SaO2% (BldA) [Mass fraction] 95 % Nuvia Cohen RN [facility] [employer] [facility].; [employer] [facility] [employer], Inc. 04-17-2016 09:57-0400 Systolic blood pressure 110 mm[Hg] Nuvia Cohen RN [facility] [employer] [facility].; [facility] [employer] [facility] 03-21-2016 10:27-0500 Body height 156.84 cm Idalmis Mccall RN [facility] [employer] [facility].; [facility] [employer] [facility] 03-21-2016 10:27-0500 Body mass index (BMI) [Ratio] 47.39 kg/m2 Idalmis Mccall RN [facility] [employer] [facility].; [facility] [employer] [facility] 03-21-2016 10:27-0500 Body surface area Derived from formula 2.12 m2 Idalmis Mccall RN [facility] [employer] [facility].; [facility] [employer] [facility]. 03-21-2016 10:27-0500 Body weight 116.58 kg Idalmis Mccall RN [facility] [employer] [facility].; [facility] [employer] [facility], [employer]. 03-21-2016 10:27-0500 Diastolic blood pressure 75 mm[Hg] Idalmis Mccall RN [facility] [employer] [facility].; [facility] [employer] [facility]. 03-21-2016 10:27-0500 Heart rate 92 /min Idalmis Mccall RN [facility] [employer] [facility].; [facility] [employer] [facility], [employer]. 03-21-2016 10:27-0500 Systolic blood pressure 113 mm[Hg] Idalmis Mccall RN [facility] [employer] [facility].; [facility] [employer] [facility]. 01-04-2016 09:29-0500 Body height 155.57 cm Milady Rivera RN [facility] [employer] [facility].; [facility] [employer] [facility]. 01-04-2016 09:29-0500 Body mass index (BMI) [Ratio] 47.98 kg/m2 Milady Rivera RN [facility].; [facility] [employer] [facility] 01-04-2016 09:29-0500 Body surface area Derived from formula 2.1 m2 Milady Rivera RN [facility] [employer] [facility].; [facility] [employer] [facility], [employer]. 01-04-2016 09:29-0500 Body weight 116.12 kg Milady Rivera RN [facility] [employer] [facility].; [facility] [employer] [facility]. 01-04-2016 09:29-0500 Diastolic blood pressure 77 mm[Hg] Milady Rivera RN [facility] [employer] [facility].; [facility] [employer] [facility]. 01-04-2016 09:29-0500 Heart rate 87 /min Milady Rivera RN [facility] [employer] [facility].; [facility] [employer] [facility]. 01-04-2016 09:29-0500 Systolic blood pressure 114 mm[Hg] Milady Rivera RN [facility] [employer] [facility].; [facility] [employer] [facility]. 11-30-2015 10:24-0400 Body height 157.48 cm Milady Rivera RN [facility] [employer] [facility].; [facility] [employer] [facility] 11-30-2015 10:24-0400 Body mass index (BMI) [Ratio] 47.01 kg/m2 Milady Rivera RN [facility] [employer] [facility].; [facility] [employer] [facility] 11-30-2015 10:24-0400 Body surface area Derived from formula 2.13 m2 Milady Rivera RN [facility] [employer] [facility].; [facility] [employer] [facility] 11-30-2015 10:24-0400 Body temperature 98.2 [degF] Milady Rivera RN [facility] [employer] [facility].; [facility] [employer] [facility] 11-30-2015 10:24-0400 Body weight 116.58 kg Milady Rivera RN [facility] [employer] [facility].; [facility] Che[employer] [facility] 11-30-2015 10:24-0400 Diastolic blood pressure 75 mm[Hg] Milady Rivera RN [facility].; [facility] Che[employer] [facility] 11-30-2015 10:24-0400 Heart rate 80 /min Milady Rivera RN [facility] [employer] [facility].; [facility] [employer] [facility] 11-30-2015 10:24-0400 Systolic blood pressure 109 mm[Hg] Milady Rivera RN [facility].; [facility] [employer] [facility], [facility]. 11-19-2015 18:03-0400 Body height 157.48 cm [facility].; [facility], [facility]. 11-19-2015 18:03-0400 Body mass index (BMI) [Ratio] 46.82 kg/m2 [facility].; [facility], [facility]. 11-19-2015 18:03-0400 Body surface area Derived from formula 2.12 m2 [facility] Center[facility].; [facility] [employer] [facility], [facility]. 11-19-2015 18:03-0400 Body temperature 99 [degF] [facility].; [facility], [facility]. 11-19-2015 18:03-0400 Body weight 116.12 kg [facility].; [facility] [employer] [facility]. 11-19-2015 18:03-0400 Diastolic blood pressure 78 mm[Hg] [facility] Center[facility].; [facility] [employer] [facility]. 11-19-2015 18:03-0400 Heart rate 113 /min [facility].; [facility], [facility]. 11-19-2015 18:03-0400 Inhaled oxygen concentration 21 % [facility] [employer] [facility].; [facility] [employer] [facility]. 11-19-2015 18:03-0400 SaO2% (BldA) [Mass fraction] 96 % [facility] Center[facility].; [facility] [employer] [facility], [facility]. 11-19-2015 18:03-0400 Systolic blood pressure 118 mm[Hg] [facility] [employer] [facility].; [facility] [employer] [facility] Inc[facility] 11-16-2015 10:46-0400 Body height 158.12 cm Milady Rivera RN [facility] [employer] [facility].; [facility] [employer] [facility], [employer]. 11-16-2015 10:46-0400 Body mass index (BMI) [Ratio] 46.45 kg/m2 Milady Rivera RN [facility], Inc.; [facility], [employer]. 11-16-2015 10:46-0400 Body surface area Derived from formula 2.13 m2 Milady Rivera RN [facility], Inc.; [facility], Inc. 11-16-2015 10:46-0400 Body temperature 97.5 [degF] Milady Rivera RN [facility], Inc.; [facility], Inc. 11-16-2015 10:46-0400 Body weight 116.12 kg Milady Rivera RN [facility], Inc.; [facility], [employer]. 11-16-2015 10:46-0400 Diastolic blood pressure 82 mm[Hg] Milady Rivera RN [facility], Inc.; [facility], [employer]. 11-16-2015 10:46-0400 Heart rate 103 /min Milady Rivera RN [facility], Inc.; [facility], Inc. 11-16-2015 10:46-0400 Inhaled oxygen concentration 21 % Milady Rivera RN [facility], [facility].; [facility], [employer]. 11-16-2015 10:46-0400 SaO2% (BldA) [Mass fraction] 96 % Milady Rivera RN [facility], Inc.; [facility], [employer]. 11-16-2015 10:46-0400 Systolic blood pressure 130 mm[Hg] Milady Rivera RN [facility] [employer] [facility].; [facility], Inc. 11-04-2015 11:20-0400 Body height 157.48 cm JESSICA SHAW-Inderjit Work Phone: [facility] CenterP[facility].; [employer] [facility] [employer] [facility]. 11-04-2015 11:20-0400 Body mass index (BMI) [Ratio] 48.4 kg/m2 JESSICA SHAW-Inderjit Work Phone: [place] [employer] [facility] Campus[facility]-Mist [employer]; [employer] [facility] [employer]. 11-04-2015 11:20-0400 Body surface area Derived from formula 2.15 m2 JESSICA KRUGER GARDEN LABOURER-C Work Phone: [facility] [employer] [facility].; [employer] [facility] [employer]. 11-04-2015 11:20-0400 Body weight 120.02 kg JESSICA KRUGER GARDEN LABOURER-C Work Phone: [facility] [employer] [facility].; [employer] [facility] [employer]. 11-04-2015 11:20-0400 Diastolic blood pressure 76 mm[Hg] JESSICA KRUGER GARDEN LABOURER-C Work Phone: [facility] [employer] [facility].; [employer] [facility] [employer]. 11-04-2015 11:20-0400 Heart rate 105 /min JESSICA CAINAccuradioRACHNA iJoule-C Work Phone: [facility] [employer] [facility].; [employer] [facility] [employer]. 11-04-2015 11:20-0400 Systolic blood pressure 109 mm[Hg] JESSICA KRUGER GARDEN LABOURER-C Work Phone: [facility] [employer] [facility].; [employer] [facility] [employer]. 10-21-2015 08:55-0400 Body height 157.48 cm JESSICA KRUGER iJoule-C Work Phone: [facility] [employer].; [employer] [facility] [employer]. 10-21-2015 08:55-0400 Body mass index (BMI) [Ratio] 47.19 kg/m2 JESSICA KRUGER GARDEN LABOURER-C Work Phone: [facility] [employer].; [employer] [facility] [employer]. 10-21-2015 08:55-0400 Body surface area Derived from formula 2.13 m2 JESSICA MONTELONGOJobOnJANAETrademarkNow-C Work Phone: [facility] [employer].; [employer] [facility] [employer], [employer]. 10-21-2015 08:55-0400 Body weight 117.03 kg JESSICA HOFFMAN Work Phone: [facility] [employer].; [employer] [facility] [employer], Inc. 10-05-2015 13:41-0400 Body height 157.48 cm Idalmis Mccall RN [facility] [employer] [facility], Inc.; [employer] [facility] [employer], Inc. 10-05-2015 13:41-0400 Body mass index (BMI) [Ratio] 47.55 kg/m2 Idalmis Mccall RN [facility] [employer] [facility], [employer].; [employer] [facility] [employer] [facility], Inc. 10-05-2015 13:41-0400 Body surface area Derived from formula 2.14 m2 Idalmis Mccall RN [facility] [employer] [facility], Inc.; [employer] [facility] [employer], [employer]. 10-05-2015 13:41-0400 Body weight 117.94 kg Idalmis Mccall RN [facility] [employer] [facility], Inc.; [employer] [facility] [employer], Inc. 10-05-2015 13:41-0400 Diastolic blood pressure 80 mm[Hg] Idalmis Mccall RN [facility] [employer] [facility], [employer].; [employer] [facility] Che[employer] 10-05-2015 13:41-0400 Heart rate 94 /min Idalmis Mccall RN [facility] [employer] [facility], Inc.; [employer] [facility] [employer], [employer]. 10-05-2015 13:41-0400 Systolic blood pressure 123 mm[Hg] Idalmis Mccall RN [facility] [employer] [facility], Inc.; [employer] [facility] [employer]. 06-04-2015 11:22-0400 Body height 157.48 cm Milady Rivera RN [facility] [employer] [facility], [employer].; [employer] [facility] [employer] 06-04-2015 11:22-0400 Body mass index (BMI) [Ratio] 47.74 kg/m2 Milady Rivera RN [facility] [employer] [facility], Inc.; [employer] [facility] [employer] 06-04-2015 11:22-0400 Body surface area Derived from formula 2.14 m2 Milady Rivera RN [facility], Inc.; [facility], Inc[facility] 06-04-2015 11:22-0400 Body temperature 97.7 [degF] Milady Rivera RN [facility], Inc.; [facility] [employer] [facility], Inc. 06-04-2015 11:22-0400 Body weight 118.39 kg Milady Rivera RN [facility], Inc.; [facility], Inc[employer] 06-04-2015 11:22-0400 Diastolic blood pressure 79 mm[Hg] Milady Rivera RN [facility], Inc.; [facility], Inc[employer] 06-04-2015 11:22-0400 Heart rate 84 /min Milady Rivera RN [facility], Inc.; [facility], Inc[employer] 06-04-2015 11:22-0400 Systolic blood pressure 130 mm[Hg] Milady Rivera RN [facility] [employer] [facility], Inc.; [facility], Inc[employer] 03-01-2015 15:31-0500 Body height 156.84 cm Milady Rivera RN [facility] [employer] [facility], Inc.; [facility], Inc. 03-01-2015 15:31-0500 Body mass index (BMI) [Ratio] 45.36 kg/m2 Milady Rivera RN [facility], Inc.; [facility], Inc[employer] 03-01-2015 15:31-0500 Body surface area Derived from formula 2.08 m2 Milady Rivera RN [facility] [employer] [facility], Inc.; [facility] [employer] [facility], Inc. 03-01-2015 15:31-0500 Body temperature 97.6 [degF] Milady Rivera RN [facility] [employer] [facility], Inc.; [facility] [employer] [facility], Inc. 03-01-2015 15:31-0500 Body weight 111.59 kg Milady Rivera RN [facility] [employer] [facility], Inc.; [facility] [employer] [facility], Inc. 03-01-2015 15:31-0500 Diastolic blood pressure 88 mm[Hg] Milady Rivera RN [facility], Inc.; [facility] [employer] [facility], Inc. 03-01-2015 15:31-0500 Heart rate 84 /min Milady Rivera RN [facility], [facility].; [facility], Inc[employer] 03-01-2015 15:31-0500 Systolic blood pressure 125 mm[Hg] Milady Rivera RN [facility], Inc.; [facility], Inc. 10-06-2014 16:18-0400 Body height 157.48 cm Idalmis Mccall RN [facility], [facility].; [facility] [employer] [facility], Inc. 10-06-2014 16:18-0400 Body mass index (BMI) [Ratio] 45.36 kg/m2 Idalmis Mccall RN [facility] [employer] [facility], Inc.; [facility] [employer] [facility], Inc. 10-06-2014 16:18-0400 Body surface area Derived from formula 2.09 m2 Idalmis Mccall RN [facility] [employer] [facility], Inc.; [facility], Inc. 10-06-2014 16:18-0400 Body weight 112.49 kg Idalmis Mccall RN [facility] [employer] [facility], [employer].; [facility] [employer] [facility], Inc. 10-06-2014 16:18-0400 Diastolic blood pressure 76 mm[Hg] Idalmis Mccall RN [facility] [employer] [facility], Inc.; [facility] [employer] [facility], Inc. 10-06-2014 16:18-0400 Heart rate 81 /min Idalmis Mccall RN [facility] [employer] [facility], Inc.; [facility] [employer] [facility], Inc. 10-06-2014 16:18-0400 Systolic blood pressure 112 mm[Hg] Idalmis Mccall RN [facility] [employer] [facility], Inc.; [facility] [employer] [facility], Inc. 09-29-2014 15:43-0400 Body height 157.48 cm Idalmis Mccall RN [facility] [employer] [facility], Inc.; [facility] [employer] [facility], Inc. 09-29-2014 15:43-0400 Body mass index (BMI) [Ratio] 45.54 kg/m2 Idalmis Mccall RN [facility] [employer] [facility], Inc.; [facility] [employer] 09-29-2014 15:43-0400 Body surface area Derived from formula 2.1 m2 Idalmis Mccall RN [facility], Inc.; [facility], Inc. 09-29-2014 15:43-0400 Body weight 112.95 kg Idalmis Mccall RN [facility], Inc.; [facility], Inc. 09-29-2014 15:43-0400 Diastolic blood pressure 73 mm[Hg] Idalmis Mccall RN [facility], Inc.; [facility], Inc[employer] 09-29-2014 15:43-0400 Heart rate 81 /min Idalmis Mccall RN [facility], Inc.; [facility], [facility]. 09-29-2014 15:43-0400 Systolic blood pressure 112 mm[Hg] Idalmis Mccall RN [facility], Inc.; [facility], [facility]. 04-14-2014 15:07-0400 Body height 158.75 cm Milady Rivera RN [facility], Inc.; [facility], Inc. 04-14-2014 15:07-0400 Body mass index (BMI) [Ratio] 43.2 kg/m2 Milady Rivera RN [facility], Inc.; [facility], Inc[employer] 04-14-2014 15:07-0400 Body surface area Derived from formula 2.08 m2 Milady Rivera RN [facility], Inc.; [facility], [facility]. 04-14-2014 15:07-0400 Body temperature 97.5 [degF] Milady Rivrea RN [facility] [employer] [facility], Inc.; [facility] [employer] [facility], Inc. 04-14-2014 15:07-0400 Body weight 108.86 kg Milady Rivera RN [facility] [employer] [facility], [employer].; [facility], Inc[employer] 04-14-2014 15:07-0400 Diastolic blood pressure 77 mm[Hg] Milady Rivera RN [facility] [employer] [facility], Inc.; [facility], Inc. 04-14-2014 15:07-0400 Heart rate 92 /min Milady Rivera RN [facility], Inc.; [facility], [facility]. 04-14-2014 15:07-0400 Systolic blood pressure 117 mm[Hg] Milady Rivera RN [facility], Inc.; [facility], Inc[employer] 05-06-2013 09:30-0400 Body height 158.75 cm Milady Rivera RN [facility], Inc.; [facility], Inc. 05-06-2013 09:30-0400 Body mass index (BMI) [Ratio] 40.86 kg/m2 Milady Rivera RN [facility], Inc.; [facility], [facility]. 05-06-2013 09:30-0400 Body surface area Derived from formula 2.03 m2 Milady Rivera RN [facility], Inc.; [facility], [facility]. 05-06-2013 09:30-0400 Body temperature 97.9 [degF] Milady Rivera RN [facility], Inc.; [facility], [facility]. 05-06-2013 09:30-0400 Body weight 102.97 kg Milady Rivera RN [facility], Inc.; [facility], Inc. 05-06-2013 09:30-0400 Diastolic blood pressure 79 mm[Hg] Milady Rivera RN [facility], Inc.; [facility], [facility]. 05-06-2013 09:30-0400 Heart rate 85 /min Milady Rivera RN [facility], Inc.; [facility], Inc. 05-06-2013 09:30-0400 Systolic blood pressure 116 mm[Hg] Milady Rivera RN [facility] [employer] [facility], Inc.; [facility], Inc. 02-27-2011 11:16-0500 Body height 158.75 cm Nuvia Cohen RN [facility] [employer] [facility], Inc.; [facility], Inc[employer] 02-27-2011 11:16-0500 Body mass index (BMI) [Ratio] 41.76 kg/m2 Nuvia Cohen RN [facility] [employer] [facility], Inc.; [employer] [facility] [employer] [facility], Inc. 02-27-2011 11:16-0500 Body surface area Derived from formula 2.05 m2 Nuvia Cohen RN [facility] [employer] [facility], Inc.; [employer] [facility] [employer] [facility], Inc. 02-27-2011 11:16-0500 Body temperature 98.1 [degF] Nuvia Cohen RN [facility] [employer] [facility], Inc.; [employer] [facility] [employer] 02-27-2011 11:16-0500 Body weight 105.24 kg Nuvia Cohen RN [facility] [employer] [facility], Inc.; [employer] [facility] [employer] [facility], Inc. 02-27-2011 11:16-0500 Diastolic blood pressure 75 mm[Hg] Nuvia Cohen RN [facility] [employer] [facility], Inc.; [employer] [facility] [employer] 02-27-2011 11:16-0500 Heart rate 77 /min Nuvia Cohen RN [facility] [employer] [facility], Inc.; [employer] [facility] [employer] 02-27-2011 11:16-0500 Systolic blood pressure 110 mm[Hg] Nuvia Cohen RN [facility] [employer] [facility], Inc.; [employer] [facility] [employer] Encounters Encounter Date Encounter Type Care Provider Facility Start: 12-22-2024 ambulatory Alessia Mckeon NP Facili ty:[facility] Start: 12-08-2024 End: 12-08-2024 ambulatory Alessia Mckeon NP Facility:[facility] Start: 11-21-2024 ambulatory Alessia Mckeon [employer] Facili ty:[facility] Start: 11-21-2024 ambulatory Hakeem Weiss [facility] Start: 11-21-2024 End: 11-21-2024 ambulatory Alessia Mckeon [employer] Facility:[facility] Start: 11-19-2024 End: 11-19-2024 ambulatory Alessia Mckeon [employer] Facility:[facility] Start: 11-05-2024 ambulatory Hakeem Weiss Facility:[facility] Start: 11-05-2024 Non-patient / Non-visit Dr. Navarro Of travis [facility] -[facility] Start: 11-05-2024 Patient encounter procedure Alessia Mckeon [employer]-C -Cat Scan [facility] Work Phone: Start: 11-05-2024 End: 11-05-2024 ambulatory Hakeem Weiss Facility:[facility] Start: 10-28-2024 End: 10-28-2024 Patient encounter procedure Alessia Mckeon [employer]-C -Laboratory Work Phone: Start: 10-28-2024 End: 10-28-2024 ambulatory Hakeem Weiss PA Work Phone: -[facility] Start: 10-28-2024 End: 10-28-2024 ambulatory Hakeem Weiss Facility:[facility] Start: 10-22-2024 End: 10-22-2024 ambulatory HAKEEM PAC WEISS [facility] Start: 08-13-2024 End: 08-13-2024 Orders Hakeem Weiss PA-C Work Phone: [employer] Start: 08-02-2024 End: 08-02-2024 Emergency department patient visit Hakeem Weiss PA Work Phone: -Emergency Department Work Phone: Start: 06-27-2024 End: 06-27-2024 Office outpatient visit 25 minutes Hakeem Weiss PA-C Work Phone: [employer] Start: 06-03-2024 End: 06-03-2024 Medication Hakeem Weiss PA-C Work Phone: [employer] Start: 05-13-2024 End: 05-13-2024 Historical Summary Hakeem Weiss PA-C Work Phone: [employer] Start: 04-23-2024 End: 04-23-2024 Medication Hakeem Weiss PA-C Work Phone: [employer] Start: 04-23-2024 Review Hakeem Weiss P A-C Work Phone: [employer] Start: 04-01-2024 End: 04-01-2024 Medication Hakeem Weiss PA-C Work Phone: [employer] Start: 02-28-2024 End: 02-28-2024 Historical Summary Hakeem Weiss PA-C Work Phone: [facility] Start: 02-28-2024 ambulatory [facility] Start: 02-28-2024 End: 02-28-2024 Office outpatient new 45 minutes Hakeem Weiss PA-C Work Phone: [facility] Start: 02-28-2024 Review Hakeem Weiss P A-C Work Phone: [facility] Start: 09-24-2023 End: 09-24-2023 JESSICA HOARJUNTETTER GARDEN LABOURER-C Work Phone: [facility] Start: 09-21-2023 End: 09-21-2023 JESSICA HOARJUNTETTER GARDEN LABOURER-C [facility] Start: 09-21-2023 End: 09-21-2023 Office outpatient visit 15 minutes JESSICA MONTELONGOFSTETTER GARDEN LABOURER-C [facility] Phone: [facility] Start: 05-07-2023 End: 05-07-2023 JESSICA HOFSTETTER GARDEN LABOURER-C [facility] Start: 05-03-2023 End: 05-03-2023 Office outpatient visit 15 minutes JESSICA HOFSTETTER GARDEN LABOURER-C Work Phone: [facility] Start: 05-03-2023 End: 05-03-2023 JESSICA HOFSTETTER GARDEN LABOURER-C Work Phone: [facility] Start: 02-14-2023 End: 02-14-2023 Subsequent hospital visit by physician Rosana Travis SILK WASHING MACHINE OPERATOR - MANAGER PROCESS IMPROVEMENT Work Phone: [facility] Comment on above: Canceled (Patient: C anceled via MyChart) Start: 02-14-2023 End: 02-15-2023 ambulatory ROSANA Galen [facility] Start: 01-05-2023 End: 01-05-2023 Office outpatient visit 15 minutes Eliane Han MD Work Phone: [facility] Comment on above: Type 2 diabetes jyothi itus without complication, without long- term current use of insulin (CMS/HCC) (HCC) (Primary Dx); BMI 50.0-59.9, adult (HCC); Class 3 severe obesity with serious comorbidity and body mass index (BMI) of 50.0 to 59.9 in adult, unspecified obesity type (HCC) Start: 01-05-2023 End: 01-05-2023 ambulatory [facility] Start: 01-03-2023 End: 01-03-2023 Subsequent hospital visit by physician [facility] Room 1 [facility] Comment on above: Canceled (Patient: Italo Hernandez) Start: 01-03-2023 End: 01-04-2023 ambulatory ROSANA Galen [facility] Start: 12-22-2022 End: 12-22-2022 ambulatory [facility] Start: 12-22-2022 End: 12-22-2022 Office outpatient visit 15 minutes Eliane Han MD Work Phone: [facility] Comment on above: Type 2 diabetes jyothi itus without complication, without long- term current use of insulin (CMS/HCC) (HCC) (Primary Dx); BMI 50.0-59.9, adult (HCC); Class 3 severe obesity with serious comorbidity and body mass index (BMI) of 50.0 to 59.9 in adult, unspecified obesity type (HCC) Start: 12-18-2022 End: 12-18-2022 JESSICA HOFFMAN Work Phone: [facility]. Start: 12-18-2022 End: 12-18-2022 ambulatory JEAN PAUL BAILEY [facility] Start: 12-18-2022 End: 12-18-2022 Subsequent hospital visit by physician Jean Paul Bailey MD Work Phone: [facility] Comment on above: Gastro-esophageal re flux disease without esophagitis Start: 12-15-2022 ambulatory Cherrie Deleon SILK WASHING MACHINE OPERATOR - MANAGER PROCESS IMPROVEMENT Work Phone: [facility] Start: 12-15-2022 End: 12-15-2022 Office outpatient visit 15 minutes JESSICA KRUGER GARDEN LABOURER-C Work Phone: [facility] Start: 12-09-2022 End: 12-09-2022 ambulatory [employer]-C Jessica Kruger [employer] Work Phone: [facility] Work Phone: Start: 12-09-2022 End: 12-09-2022 Patient encounter procedure [employer]-C Jessica Kruger [employer] Work Phone: [facility]-Radiology, [facility] Work Phone: Start: 11-23-2022 End: 11-23-2022 ambulatory [facility] Start: 11-23-2022 End: 11-23-2022 Office outpatient new 45 minutes Jean Paul Bailey MD Work Phone: [facility] Comment on above: Type 2 diabetes jyothi itus without complication, without long- term current use of insulin ([facility] ([facility]) (Primary Dx); BMI 50.0-59.9, adult ([facility]); Class 3 severe obesity with serious comorbidity and body mass index (BMI) of 50.0 to 59.9 in adult, unspecified obesity type ([facility]) Start: 11-15-2022 End: 11-15-2022 [facility] Start: 11-15-2022 End: 11-15-2022 Office outpatient new 45 minutes Rosana Travis SILK WASHING MACHINE OPERATOR - MANAGER PROCESS IMPROVEMENT Work Phone: [facility] Comment on above: Asthma, unspecified asthma severity, unspecified whether complicated, unspecified whether persistent (Primary Dx); Morbid obesity with BMI of 50.0-59.9, adult ([facility]) Start: 11-09-2022 End: 11-09-2022 Patient encounter procedure [employer]-Inderjit Kruger [employer] [facility]: Start: 11-02-2022 End: 11-02-2022 ambulatory [employer]-C Jessica Kruger [employer] Work Phone: [facility] Work Phone: Start: 11-02-2022 End: 11-02-2022 Patient encounter procedure [employer]-C Jessica Kruger [employer] Work Phone: [facility]-Sleep Lab Work Phone: Start: 10-30-2022 End: 10-30-2022 Patient encounter procedure [employer]-C Jessica Kruger [employer] Work Phone: [facility]-Pulmonary Medicine [facility] Work Phone: Start: 10-20-2022 End: 10-20-2022 Clinical Support Jean Paul Bailey MD Work Phone: [facility] [place] Comment on above: Gastroesophageal ref lux disease, unspecified whether esophagitis present (Primary Dx) Start: 10-05-2022 End: 10-05-2022 Patient encounter procedure [employer]-Inderjit Kruger [employer] Work Phone: [facility]-Sleep Lab Work Phone: Start: 09-30-2022 End: 09-30-2022 Emergency department patient visit [employer]-C Jessica Kruger [employer] Work Phone: [facility]-Emergency Department Work Phone: Start: 09-19-2022 End: 09-19-2022 Patient encounter procedure [employer]-C Jessica Kruger [employer] Work Phone: [facility] Work Phone: Start: 08-30-2022 End: 08-30-2022 ambulatory JEAN PAUL BAILEY [facility] Start: 08-30-2022 Patient encounter status Cherrie Deleon SILK WASHING MACHINE OPERATOR - MANAGER PROCESS IMPROVEMENT Work Phone: [facility] Work Phone: Start: 08-30-2022 Telephone encounter Cherrie dickerson SILK WASHING MACHINE OPERATOR - MANAGER PROCESS IMPROVEMENT Work Phone: [facility] [place] Comment on above: Financial File (Myesha ncial File 2022); Surgery Scheduling (Initial scheduling-orders placed) Start: 08-30-2022 End: 08-30-2022 Office outpatient new 45 minutes Jean Paul Bailey MD Work Phone: [facility] [place] Comment on above: GERD without esophag itis; Type 2 diabetes mellitus without complication, without long-term current use of insulin ([facility] ([facility]); Morbid obesity with BMI of 50.0-59.9, adult ([facility]) Start: 08-28-2022 End: 08-28-2022 JESSICA KRUGER GARDEN LABOURER-C [facility] Start: 08-28-2022 End: 08-28-2022 JESSICA KRUGER GARDEN LABOURER-C [facility] Start: 08-25-2022 End: 08-25-2022 Office outpatient visit 25 minutes JESSICA KRUGER GARDEN LABOURER-C [facility]: [facility] Start: 07-06-2022 Non-patient / Non-visit [employer]-C Francois Kruger [employer] Work Phone: [facility] Start: 07-06-2022 End: 07-06-2022 ambulatory [employer]-C Jessica Kruger [employer] Work Phone: [facility] Work Phone: Start: 07-06-2022 End: 07-06-2022 Patient encounter procedure [employer]-C Jessica Kruger [employer] [facility] Start: 06-30-2022 End: 06-30-2022 Admission to same day surgery center [employer]-C Jessica Kruger [employer] Work Phone: [facility]-Scale Manager/Special Procedures Start: 06-21-2022 End: 06-21-2022 JESSICA KRUGER GARDEN LABOURER-C [facility] Start: 06-12-2022 End: 06-12-2022 ambulatory [employer]-C Jessica Kruger [employer] Work Phone: [facility] Work Phone: Start: 06-12-2022 End: 06-12-2022 Patient encounter procedure [employer]-C Jessica Kruger [employer] Work Phone: [facility] Start: 06-05-2022 End: 06-05-2022 JESSICA KRUGER GARDEN LABOURER-C [facility] Start: 06-05-2022 End: 06-05-2022 JESSICA KRUGER GARDEN LABOURER-C [facility] Start: 06-03-2022 Non-patient / Non-visit [employer]-C Francois Kruger [employer] Work Phone: [facility] Start: 06-02-2022 End: 06-02-2022 ambulatory CAR[employer]-C Jessica Kruger [employer] Work Phone: [facility] Work Phone: Start: 06-02-2022 End: 06-02-2022 Patient encounter procedure CAR[employer]-C Jessica Kruger [employer] [facility] Start: 06-02-2022 Non-patient / Non-visit [employer]-C Francois Kruger [employer] Work Phone: [facility] Start: 05-26-2022 End: 05-26-2022 Office outpatient visit 15 minutes JESSICA KRUGER GARDEN LABOURER-C [facility] Phone: [facility] Start: 05-18-2022 End: 05-18-2022 Emergency department patient visit [employer]-C Jessica Kruger [employer] Work Phone: [facility]-Emergency Department Start: 05-17-2022 End: 05-17-2022 JESSICA KRUGER GARDEN LABOURER-C [facility] Start: 05-16-2022 Non-patient / Non-visit [employer]-C Francois Kruger [employer] Work Phone: [facility] Start: 05-16-2022 End: 05-16-2022 Patient encounter procedure CARAMEL C[employer]-C Jessica Kruger [employer] Work Phone: [facility] ular Services Start: 05-11-2022 End: 05-11-2022 JESSICA KRUGER GARDEN LABOURER-C [facility] Start: 05-11-2022 End: 05-15-2022 ambulatory JESSICA KRUGER SILK WASHING MACHINE OPERATOR-MANAGER PROCESS IMPROVEMENT Facility:A Start: 05-10-2022 End: 05-10-2022 Office outpatient visit 15 minutes JESSICA KRUGER GARDEN LABOURER-C [facility] Start: 03-10-2022 End: 03-10-2022 JESSICA KRUGER GARDEN LABOURER-C [facility] Start: 03-08-2022 End: 03-08-2022 Office outpatient visit 25 minutes JESSICA KRUGER GARDEN LABOURER-C [facility] Start: 03-08-2022 End: 03-08-2022 JESSICA KRUGER GARDEN LABOURER-C [facility]: [facility] Start: 02-14-2022 End: 02-15-2022 JESSICA KRUGER GARDEN LABOURER-C Work Phone: [facility] Start: 10-24-2021 End: 10-24-2021 Admission to same day surgery center [facility] Start: 10-24-2021 End: 10-24-2021 ambulatory [facility] Work Phone: Start: 10-08-2021 End: 10-08-2021 JESSICA KRUGER GARDEN LABOURER-C [facility] Start: 09-06-2021 End: 09-06-2021 ambulatory Pako Appiah MD Work Phone: Hematology/Oncology Comment on above: MGUS (monoclonal dayron mopathy of unknown significance) (Primary Dx) Start: 09-06-2021 End: 09-06-2021 Patient encounter procedure Pako Appiah MD Work Phone: [facility] Start: 08-25-2021 End: 08-25-2021 Subsequent hospital visit by physician [facility] Work Phone: Radiology Comment on above: MGUS (monoclonal dayron mopathy of unknown significance) [D47.2] Start: 08-24-2021 End: 08-24-2021 JESSICA KRUGER GARDEN LABOURER-C [facility] Start: 08-24-2021 End: 08-24-2021 JESSICA HOFFMANTTER GARDEN LABOURER-C [facility] Phone: [facility] Start: 08-23-2021 End: 08-23-2021 ambulatory Pako Appiah MD Work Phone: Hematology/Oncology Comment on above: MGUS (monoclonal dayron mopathy of unknown significance) (Primary Dx) Start: 08-23-2021 End: 08-23-2021 Patient encounter procedure Pako Appiah MD Work Phone: [facility] Start: 08-02-2021 End: 08-02-2021 JESSICA MONTELONGOFSTETTER GARDEN LABOURER-C Work Phone: [employer] Start: 08-02-2021 End: 08-02-2021 JESSICA HOFSTETTER GARDEN LABOURER-C Work Phone: [employer] [place] [employer] Start: 08-01-2021 End: 08-01-2021 JESSICA HOFSTETTER GARDEN LABOURER-C Work Phone: [facility] Start: 07-28-2021 End: 07-28-2021 JESSICA Genus OncologyFSTETTER GARDEN LABOURER-C Work Phone: [facility] Start: 07-26-2021 End: 07-26-2021 JESSICA HOFSTETTER GARDEN LABOURER-C Work Phone: [facility] Start: 07-25-2021 End: 07-25-2021 Office outpatient visit 15 minutes JESSICA CAINTETTER GARDEN LABOURER-C Work Phone: [facility] [facility] Start: 06-01-2021 End: 06-01-2021 Office outpatient visit 15 minutes JESSICA HOFSTETTER GARDEN LABOURER-C Work Phone: [facility] [facility] Start: 03-12-2021 End: 03-12-2021 JESSICA HOFSTETTER GARDEN LABOURER-C Work Phone: [facility] Start: 03-12-2021 End: 03-12-2021 JESSICA HOARJUNTETTER GARDEN LABOURER-C Work Phone: [facility] [employer] [facility] Start: 03-09-2021 End: 03-09-2021 Office outpatient visit 25 minutes JESSICA HOFSTETTER GARDEN LABOURER-C Work Phone: [place] [employer] [facility] [employer] [facility]. Start: 11-24-2020 End: 11-24-2020 Office outpatient visit 15 minutes JESSICA HOFSTETTER GARDEN LABOURER-C Work Phone: [employer] [facility] [employer] [facility]. Start: 10-28-2020 End: 10-28-2020 JESSICA HOFSTETTER GARDEN LABOURER-C Work Phone: [employer] [facility] [employer] [facility]. Start: 10-27-2020 End: 10-27-2020 Office outpatient visit 15 minutes JESSICA HOFSTETTER GARDEN LABOURER-C Work Phone: [employer] [facility] Start: 08-23-2020 End: 08-23-2020 JESSICA HOFSTETTER GARDEN LABOURER-C Work Phone: [place] [employer] [facility] [employer] [facility]. Start: 07-30-2020 End: 07-30-2020 Office outpatient visit 15 minutes JESSICA HOARJUNTETTER GARDEN LABOURER-C Work Phone: [employer] [facility] [employer] [facility]. Start: 07-23-2020 End: 07-23-2020 JESSICA HOFSTETTER GARDEN LABOURER-C Work Phone: [employer] [place] [employer] [facility] [employer] Start: 07-21-2020 End: 07-21-2020 JESSICA HOFSTETTER GARDEN LABOURER-C Work Phone: [employer] [place] [employer] [facility] [employer] Start: 07-21-2020 End: 07-21-2020 Office outpatient visit 25 minutes JESSICA HOFSTETTER GARDEN LABOURER-C Work Phone: [facility] Start: 06-08-2020 End: 06-08-2020 JESSICA HOFSTETTER GARDEN LABOURER-C Work Phone: [facility] Start: 06-04-2020 End: 06-04-2020 JESSICA HOFSTETTER GARDEN LABOURER-C Work Phone: [facility]. Start: 06-04-2020 End: 06-04-2020 JESSICA HOFSTETTER GARDEN LABOURER-C Work Phone: [facility] Start: 06-03-2020 End: 06-03-2020 JESSICA HOFSTETTER GARDEN LABOURER-C Work Phone: [facility] Start: 05-31-2020 End: 05-31-2020 Office outpatient visit 15 minutes JESSICA HOFSTETTER GARDEN LABOURER-C Work Phone: [facility] Start: 05-24-2020 End: 05-24-2020 JESSICA HOFSTETTER GARDEN LABOURER-C [facility] Start: 05-18-2020 End: 05-18-2020 Office outpatient visit 15 minutes JESSICA HOFSTETTER GARDEN LABOURER-C Work Phone: [facility] Start: 02-12-2020 End: 02-12-2020 Office outpatient visit 15 minutes JESSICA HOFSTETTER GARDEN LABOURER-C Work Phone: [facility] Start: 01-16-2020 End: 01-16-2020 JESSICA HOFSTETTER GARDEN LABOURER-C [facility] Phone: [facility] Start: 01-09-2020 End: 01-09-2020 Office outpatient visit 15 minutes JESSICA HOFSTETTER GARDEN LABOURER-C Work Phone: [facility] Start: 12-30-2019 End: 12-30-2019 JESSICA HOFSTETTER GARDEN LABOURER-C Work Phone: [facility] Start: 12-29-2019 End: 12-29-2019 JESSICA HOFSTETTER GARDEN LABOURER-C Work Phone: [facility], [employer]. Start: 12-10-2019 End: 12-10-2019 JESSICA HOFSTETTER GARDEN LABOURER-C Work Phone: [facility], [employer]. Start: 12-10-2019 End: 12-10-2019 Transitional care manage srvc 7 day discharge JESSICA HOFSTETTER GARDEN LABOURER-C Work Phone: [facility], [employer] Start: 12-01-2019 End: 12-01-2019 Office outpatient visit 15 minutes JESSICA HOFSTETTER GARDEN LABOURER-C Work Phone: [facility] Start: 11-06-2019 End: 11-06-2019 JESSICA HOFSTETTER GARDEN LABOURER-C Work Phone: [facility] Start: 11-06-2019 End: 11-06-2019 Office outpatient visit 25 minutes JESSICA HOFSTETTER GARDEN LABOURER-C Work Phone: [facility] [employer] Start: 10-22-2019 End: 10-23-2019 JESSICA HOFSTETTER GARDEN LABOURER-C Work Phone: [facility] Start: 08-22-2019 End: 08-22-2019 JESSICA HOFSTETTER GARDEN LABOURER-C Work Phone: [facility] Start: 04-14-2019 End: 04-14-2019 JESSICA HOFSTETTER GARDEN LABOURER-C Work Phone: [facility]. Start: 04-14-2019 End: 04-14-2019 Office outpatient visit 15 minutes JESSICA CAINTETTER GARDEN LABOURER-C Work Phone[facility] Start: 04-08-2018 End: 04-08-2018 JESSICA HOARJUNTETTER GARDEN LABOURER-C Work Phone: [facility] Start: 04-02-2018 End: 04-02-2018 JESSICA HOARJUNTETTER GARDEN LABOURER-C Work Phone: [facility] [employer]. Start: 04-02-2018 End: 04-02-2018 Office outpatient visit 15 minutes JESSICA HOFSTETTER GARDEN LABOURER-C Work Phone: [facility] [employer]. Start: 03-21-2018 End: 03-21-2018 Office outpatient visit 15 minutes JESSICA HOFSTETTER GARDEN LABOURER-C Work Phone: [place] [employer] [facility] [employer]. Start: 10-01-2017 End: 10-01-2017 Office outpatient visit 15 minutes JESSICA HOFSTETTER GARDEN LABOURER-C Work Phone: [facility] [employer]. Start: 09-15-2017 End: 09-17-2017 Office outpatient visit 15 minutes JESSICA HOARJUNTETTER GARDEN LABOURER-C Work Phone: [place] [employer] [facility] [employer] Start: 09-12-2017 End: 09-12-2017 Office outpatient visit 15 minutes JESSICA HOARJUNTETTER GARDEN LABOURER-C Work Phone: [place] [employer] [facility] [employer]. Start: 07-17-2017 End: 07-17-2017 Office outpatient visit 15 minutes JESSICA HOFSTETTER GARDEN LABOURER-C Work Phone: [place] [employer] [facility] [employer]. Start: 07-12-2017 End: 07-12-2017 JESSICA HOFSTETTER GARDEN LABOURER-C Work Phone: [place] [facility] [facility] [employer]. Start: 06-25-2017 End: 06-25-2017 Office outpatient visit 15 minutes JESSICA TIFFANYTETTER GARDEN LABOURER-C Work Phone: [facility] [employer] [facility], [employer] Start: 06-07-2017 End: 06-07-2017 Office outpatient visit 15 minutes JESSICA HOFSTETTER GARDEN LABOURER-C Work Phone: [facility] [employer] Start: 05-30-2017 End: 05-30-2017 JESSICA HOFSTETTER GARDEN LABOURER-C Work Phone: [facility] [employer] [facility], [employer]. Start: 05-25-2017 End: 05-25-2017 Office outpatient visit 15 minutes JESSICA HOFSTETTER GARDEN LABOURER-C Work Phone: [facility], [employer]. Start: 05-17-2017 End: 05-17-2017 Office outpatient visit 15 minutes JESSICA HOFSTETTER GARDEN LABOURER-C Work Phone: [facility] Start: 04-27-2017 End: 04-27-2017 Office outpatient visit 15 minutes JESSICA HOFSTETTER GARDEN LABOURER-C Work Phone: [facility] [employer]. Start: 04-21-2017 End: 04-21-2017 Office outpatient visit 15 minutes JESSICA HOARJUNTETTER GARDEN LABOURER-C Work Phone: [facility] [employer] [facility], [employer] Start: 03-23-2017 End: 03-23-2017 Office outpatient visit 15 minutes JESSICA HOARJUNTETTER GARDEN LABOURER-C Work Phone: [facility] [employer] [facility]. Start: 03-06-2017 End: 03-06-2017 JESSICA HOFSTETTER GARDEN LABOURER-C Work Phone: [facility] [employer], [employer]. Start: 02-13-2017 End: 02-13-2017 JESSICA HOFSTETTER GARDEN LABOURER-C Work Phone: [facility] [employer]. Start: 02-13-2017 End: 02-13-2017 JESSICA HOARJUNTETTER GARDEN LABOURER-C Work Phone: [facility] [employer] Start: 02-09-2017 End: 02-09-2017 Office outpatient visit 15 minutes JESSICA HOARJUNTETTER GARDEN LABOURER-C Work Phone: [facility] [employer] [facility], [employer] Start: 01-04-2017 End: 01-04-2017 Office outpatient visit 15 minutes JESSICA HOFSTETTER GARDEN LABOURER-C Work Phone: [facility] [employer] [facility], [employer] Start: 12-27-2016 End: 12-27-2016 Office outpatient visit 15 minutes JESSICA HOFSTETTER GARDEN LABOURER-C Work Phone: [facility] [employer] [facility], [employer] Start: 12-01-2016 End: 12-01-2016 Office outpatient visit 15 minutes JESSICA HOFSTETTER GARDEN LABOURER-C Work Phone: [facility] [employer] Start: 10-25-2016 End: 10-25-2016 JESSICA HOFSTETTER GARDEN LABOURER-C Work Phone: [facility] [employer] Start: 10-19-2016 End: 10-19-2016 Office outpatient visit 15 minutes JESSICA HOFSTETTER GARDEN LABOURER-C Work Phone: [facility] [employer] [facility], [employer] Start: 09-12-2016 End: 09-12-2016 JESSICA HOARJUNTETTER GARDEN LABOURER-C Work Phone: [facility] [employer] [facility], [employer] Start: 09-12-2016 End: 09-12-2016 Office outpatient visit 15 minutes JESSICA HOFSTETTER GARDEN LABOURER-C Work Phone: [facility] [employer] [facility], [employer] Start: 09-07-2016 End: 09-07-2016 JESSICA HOFSTETTER GARDEN LABOURER-C Work Phone: [facility] [employer] Start: 09-06-2016 End: 09-06-2016 JESSICA HOFSTETTER GARDEN LABOURER-C Work Phone: [facility], [employer] Start: 09-06-2016 End: 09-06-2016 Office outpatient visit 15 minutes JESSICA HOFFMANTTER GARDEN LABOURER-C Work Phone: [facility] [employer] Start: 08-14-2016 End: 08-14-2016 Office outpatient visit 15 minutes JESSICA HOLACHOTTER GARDEN LABOURER-C Work Phone: [facility] [employer] Start: 06-19-2016 End: 06-19-2016 Office outpatient visit 15 minutes JESSICA HOLACHOTTER GARDEN LABOURER-C Work Phone: [facility] [employer] Start: 04-17-2016 End: 04-17-2016 Office outpatient visit 15 minutes JESSICA HOFFMANTTER GARDEN LABOURER-C Work Phone: [facility] [employer] Start: 04-14-2016 End: 04-14-2016 JESSICA HOARJUNTETTER GARDEN LABOURER-C Work Phone: [facility] [employer] [facility], [employer] Start: 03-21-2016 End: 03-21-2016 Office outpatient visit 15 minutes JESSICA HOFFMANTTER GARDEN LABOURER-C Work Phone: [facility] [employer] [facility], [employer] Start: 01-04-2016 End: 01-04-2016 JESSICA HOFFMANTTER GARDEN LABOURER-C Work Phone: [facility] [employer] [facility], [employer] Start: 01-04-2016 End: 01-04-2016 JESSIAC HOARJUNTETTER GARDEN LABOURER-C Work Phone: [facility] [employer] [facility], [employer] Start: 01-04-2016 End: 01-04-2016 Office outpatient visit 15 minutes JESSICA CAINTETTER GARDEN LABOURER-C Work Phone: [place] [employer] [facility] [employer] [facility], [employer] Start: 11-30-2015 End: 11-30-2015 Office outpatient visit 15 minutes JESSICA CAINTETTER GARDEN LABOURER-C Work Phone: [facility] [employer] Start: 11-19-2015 End: 11-19-2015 Office outpatient visit 15 minutes JESSICA HOFSTETTER GARDEN LABOURER-C Work Phone: [facility] [employer] Start: 11-16-2015 End: 11-16-2015 Office outpatient visit 25 minutes JESSICA HOFSTETTER GARDEN LABOURER-C Work Phone: [facility] [employer] Start: 11-12-2015 End: 11-12-2015 JESSICA HOFSTETTER GARDEN LABOURER-C Work Phone: [facility] [employer] Start: 11-11-2015 End: 11-11-2015 JESSICA HOFSTETTER GARDEN LABOURER-C Work Phone: [facility] [employer] Start: 11-08-2015 End: 11-08-2015 JESSICA HOFSTETTER GARDEN LABOURER-C Work Phone: [facility], [employer] Start: 11-04-2015 End: 11-04-2015 JESSICA HOFSTETTER GARDEN LABOURER-C Work Phone: [facility], [employer] Start: 11-04-2015 End: 11-04-2015 Office outpatient visit 15 minutes JESSICA CAINTETTER GARDEN LABOURER-C Work Phone: [facility] [employer] [facility], [employer] Start: 11-03-2015 End: 11-03-2015 JESSICA HOFSTETTER GARDEN LABOURER-C Work Phone: [facility], [employer] Start: 10-22-2015 End: 10-22-2015 JESSICA HOFSTETTER GARDEN LABOURER-C Work Phone: [facility] [employer] [facility], [employer] Start: 10-21-2015 End: 10-21-2015 JESSICA HOFSTETTER GARDEN LABOURER-C Work Phone: [facility] Start: 10-06-2015 End: 10-06-2015 JESSICA SARABIAER GARDEN LABOURER-C Work Phone: [facility] Start: 10-06-2015 End: 10-06-2015 JESSICA SARABIAER GARDEN LABOURER-C Work Phone: [facility] Start: 10-05-2015 End: 10-05-2015 Office outpatient visit 15 minutes JESSICA HOFFMANTTER GARDEN LABOURER-C Work Phone: [facility] Start: 08-11-2015 End: 08-11-2015 Medication Hakeem Weiss PA-C [facility] Start: 07-30-2015 End: 07-30-2015 Home visit Hakeem Weiss PA-C [facility] Start: 06-26-2015 End: 06-26-2015 JESSICA HOFFMANTTER GARDEN LABOURER-C [facility] Start: 06-04-2015 End: 06-04-2015 JESSICA HOFFMANTTER GARDEN LABOURER-C Work Phone: [facility] Start: 06-04-2015 End: 06-04-2015 Office outpatient visit 15 minutes JESSICA HOFFMANTTER GARDEN LABOURER-C Work Phone: [facility] Start: 03-01-2015 End: 03-01-2015 Office outpatient visit 15 minutes JESSICA HOFFMANTTER GARDEN LABOURER-C Work Phone: [facility] Start: 12-15-2014 End: 12-15-2014 JESSICA HOFFMANTTER GARDEN LABOURER-C Work Phone: [facility] [employer] [facility]. Start: 12-07-2014 End: 12-07-2014 JESSICA CAINTETTER GARDEN LABOURER-C Work Phone: [facility] [employer] Start: 11-05-2014 End: 11-05-2014 JESSICA HOARJUNTETTER GARDEN LABOURER-C Work Phone: [facility] [employer] Start: 10-30-2014 End: 10-30-2014 JESSICA HOARJUNTETTER GARDEN LABOURER-C Work Phone: [facility] [employer] Start: 10-06-2014 End: 10-06-2014 Office outpatient visit 15 minutes JESSICA HOFSTETTER GARDEN LABOURER-C Work Phone: [facility] [employer] Start: 10-02-2014 End: 10-02-2014 JESSICA HOFSTETTER GARDEN LABOURER-C Work Phone: [facility] Start: 09-30-2014 End: 09-30-2014 JESSICA HOFSTETTER GARDEN LABOURER-C Work Phone: [facility] [employer] Start: 09-29-2014 End: 09-29-2014 Office outpatient visit 15 minutes JESSICA CAINTETTER GARDEN LABOURER-C Work Phone: [facility] [employer] Start: 04-14-2014 End: 04-14-2014 Office outpatient visit 15 minutes JESSICA CAINTETTER GARDEN LABOURER-C Work Phone: [facility] [employer] [facility]. Start: 04-14-2014 End: 04-14-2014 Patient encounter status JESSICA HOFSTETTER GARDEN LABOURER-C Work Phone: [facility] [place] [employer] [facility] [employer] [facility], [employer]. Start: 06-04-2013 End: 06-04-2013 JESSICA HOFSTETTER GARDEN LABOURER-C Work Phone: [facility] [employer] [facility], [employer]. Start: 05-06-2013 End: 05-06-2013 JESSICA HOFSTETTER GARDEN LABOURER-C Work Phone: [facility] Start: 05-06-2013 End: 05-06-2013 JESSICA KRUGER GARDEN LABOURER-C Work Phone: [facility] Start: 03-07-2011 End: 03-07-2011 JESSICA KRUGER GARDEN LABOURER-C Work Phone: [facility] Start: 02-27-2011 End: 02-27-2011 JESSICA KRUGER GARDEN LABOURER-C Work Phone: [facility] Procedures Date Procedure Procedure Detail Performing Clinician Start: 11-05-2024 CT angiography of co ronary arteries Hakeem Weiss PA Work Phone: Start: 09-15-2024 End: 09-15-2024 Most Recent Endo Report Hakeem Weiss PA- C Work Phone: Comment on above: no records Start: 08-02-2024 Plain X-ray of shoulder Hakeem Weiss PA Work Phone: Start: 08-02-2024 X-ray of cervical spine Hakeem Weiss PA Work Phone: Start: 06-26-2024 End: 06-26-2024 Most Recent Endo Report Hakeem Weiss PA- C Work Phone: Comment on above: no records Start: 05-13-2024 End: 05-13-2024 Most Recent Endo Report Hakeem Weiss PA- C Work Phone: Comment on above: no records Start: 05-03-2023 End: 05-03-2023 Dischrg meds reconciled w/current med list JESSICA KRUGER GARDEN LABOURER-C Work Phone: Start: 01-05-2023 Adult depression scr eening assessment Eliane Hna MD Work Phone: Start: 12-18-2022 Glucose quantitative blood xcpt reagent strip Jean Paul Bailey MD Work Phone: Start: 12-15-2022 End: 12-15-2022 Dischrg meds reconciled w/current med list JESSICA KRUGER GARDEN LABOURER-C Work Phone: Start: 12-15-2022 End: 12-15-2022 Foot examination performed JESSICA GLASS GARDEN LABOURER-C Work Phone: Start: 12-09-2022 Plain X-ray of shoulder [employer] Jessica Kruger [employer] Work Phone: Start: 09-30-2022 Radiologic examination of knee [employer] Jessica Kruger [employer] Work Phone: Start: 08-25-2022 End: 08-25-2022 Dischrg meds reconciled w/current med list JESSICA KRUGER GARDEN LABOURER-C Work Phone: Start: 05-26-2022 End: 05-26-2022 Dischrg meds reconciled w/current med list JESSICA KRUGER GARDEN LABOURER-C Work Phone: Start: 05-18-2022 CT angiography of ch est with contrast [employer] Jessica Kruger [employer] Work Phone: Start: 05-18-2022 Plain chest X-ray [employer] Jessica Kruger [employer] Work Phone: Start: 05-17-2022 End: 05-17-2022 Dup-scan xtr veins unilateral/limited study JESSICA KRUGER GARDEN LABOURER-C Work Phone: Start: 05-10-2022 End: 05-10-2022 Dischrg meds reconciled w/current med list Crissy Schrader Start: 03-08-2022 End: 03-08-2022 Dischrg meds reconciled w/current med list JESSICA KRUGER GARDEN LABOURER-C Work Phone: Start: 10-24-2021 Fluoroscopy guided i [...] meds reconciled w/current med list JESSICA KRUGER GARDEN LABOURER-C Work Phone: Start: 11-24-2020 End: 11-24-2020 Dischrg meds reconciled w/current med list JESSICA KRUGER GARDEN LABOURER-C Work Phone: Start: 07-30-2020 End: 07-30-2020 Dischrg meds reconciled w/current med list JESSICA KRUGER GARDEN LABOURER-C Work Phone: Start: 07-30-2020 End: 07-30-2020 Nuvia Cohen RN Start: 07-21-2020 End: 07-21-2020 Dischrg meds reconciled w/current med list JESSICA KRUGER GARDEN LABOURER-C Work Phone: Start: 12-10-2019 End: 12-10-2019 Dischrg meds reconciled w/current med list Bryan ISSA MD Work Phone: Start: 12-01-2019 End: 12-01-2019 Dischrg meds reconciled w/current med list JIAN BROINES MD Work Phone: Start: 11-06-2019 End: 11-06-2019 Collj & interpj physiol data min 30 min ea 30 d JIAN BRIONES MD Work Phone: Start: 07-31-2019 End: 07-31-2019 JESSICA HOFFMAN Work Phone: Start: 04-14-2019 End: 04-14-2019 Dischrg [...] 07-17-2017 End: 07-17-2017 Therapeutic prophylactic/dx injection subq/im Bryan ISSA MD Work Phone: Start: 07-17-2017 End: [...] Phone: Start: 09-08-2016 End: 09-08-2016 Cholecystectomy JESSICA HOFFMAN Work Phone: Start: 06-19-2016 End: 06-19-2016 Therapeutic prophylactic/dx injection subq/im LUIS BRIONES MD Work Phone: Start: 06-19-2016 End: 06-19-2016 Triamcinolone acet inj NOS LUIS BRIONES MD Work Phone: Start: 04-17-2016 End: 04-17-2016 Ceftriaxone sodium injection SHAWN HEATON MD Work Phone: Start: 04-17-2016 End: 04-17-2016 Therapeutic prophylactic/dx injection subq/im SHAWN ARAMBULA MD Work Phone: Start: 11-12-2015 End: 11-12-2015 Cardiovascular stress testing JESSICA KRUGER GARDEN LABOURER-C Work Phone: Start: 09-29-2014 End: 10-02-2014 Us lmtd joint/oth nonvasc xtr strux r-t w/img Bryan ISSA MD Work Phone: Start: 09-05-2014 End: 09-05-2014 Ultrasonography JESSICA KRUGER GARDEN LABOURER-C Work Phone: Start: 04-24-2013 End: 04-24-2013 Echocardiography JESSICA Roscoe KRUGER GARDEN LABOURER-C Work Phone: Start: 02-27-2011 End: 02-27-2011 Ceftriaxone sodium injection Bryan KENYON MD Work Phone: Start: 02-27-2011 End: 02-27-2011 Therapeutic prophylactic/dx injection subq/im Bryan ISSA MD Work Phone: Start: 08-14-2008 End: 08-14-2008 Nuvia Cohen RN Start: 02-06-1996 End: 02-06-1996 JESSICA KRUGER GARDEN LABOURER-C Work Phone: Computerized axial t omography of brain JESSICA KRUGER GARDEN LABOURER-C Work Phone: Computerized axial t omography of brain JESSICA M HOFSTETTER GARDEN LABOURER-C Work Phone: CT of abdomen JESSICA CAIN TETTER GARDEN LABOURER-C Work Phone: CT of abdomen JESSICA CAIN TETTER GARDEN LABOURER-C Work Phone: CT of chest JESSICA STERN MILAGRO GARDEN LABOURER-C Work Phone: CT of chest JESSICA HOUSTONTER GARDEN LABOURER-C Work Phone: Doppler studies JESSICA MONTELONGO FSTETTER GARDEN LABOURER-C Work Phone: Doppler studies JESSICA MONTELONGO FSTETTER GARDEN LABOURER-C Work Phone: Electrocardiographic procedure JESSICA HOFFMANTTER GARDEN LABOURER-C Work Phone: Electrocardiographic procedure JESSICA CAINTETTER GARDEN LABOURER-C Work Phone: History of cholecystectomy W MANA Malhotra HOARJUNTETTER GARDEN LABOURER-C Work Phone: History of cholecystectomy W MANA CAINTETTER GARDEN LABOURER-C Work Phone: History of cholecystectomy W MANA Malhotra HOARJUNTETTER [employer] Work Phone: Magnetic resonance imaging W MANA Malhotra HOARJUNTETTER [employer] Work Phone: Magnetic resonance imaging W MANA Malhotra HOARJUNTETTER [employer] Work Phone: Plain chest X-ray JESSICA HOFFMANTTER [employer] Work Phone: Plain chest X-ray JESSICA Malhotra HOLACHOTTER [employer] Work Phone: Radionuclide biliary patency study JESSICA HOFFMANTTER [employer] Work Phone: Radionuclide biliary patency study JESSICA Malhotra HOARJUNTETTER [employer] Work Phone: SARS-CoV-2 & FLU Ant igen (Rapid) [employer] Jessica Hoffmanangel [employer] Work Phone: JESSICA HUMPHREY [employer] Work Phone: JESSICA HUMPHREY [employer] Work Phone: Plan of Treatment Date Care Activity Detail Author Start: 2039 RSV Immunization aged 60 or older (1 - 1-dose 60+ series) RSV Immunization aged 60 or older (1 - 1-dose 60+ series) [facility] Start: 2029 Zoster Vaccines (1 of 2) Zoster Vaccines (1 of 2) [facility] Start: 11-05-2024 Oxygen therapy [facility] Start: 11-05-2024 [facility] Start: 11-05-2024 Following clinical pathway protocol [facility] Start: 10-28-2024 Ambulatory ECG [facility] Start: 10-28-2024 CT angiography of coronary arteries [facility] Start: 10-28-2024 End: 10-28-2024 Evaluation of diagnostic study results [facility] Start: 10-07-2024 Patient encounter procedure Medical; PHYSICAL - AWV [employer]. Start: 07-Oct-2024 15:00-04:00 VALENTÍN Weiss Appointment Request [employer]. Start: 09-24-2024 Cyanocobalamin vitamin b-12 VITAMIN B-12 SERUM (27027) Start: 24-Sep-2024 13:22-04:00 Request [employer]ne[employer].; [employer]. Start: 09-24-2024 Hemoglobin glycosylated a1c HEMOGLOBIN A1C* (52925) Start: 24-Sep-2024 13:19-04:00 Request [employer]nekt.; [employer]. Start: 09-24-2024 Lipid panel LIPID PANEL (37319) Start: 24-Sep-2024 13:19-04:00 Request Qnekt.; [employer]. Start: 09-24-2024 Comprehensive metabolic panel CMP w/ GFR* (71298) Start: 24-Sep-2024 13:19-04:00 Request Qnekt.; [employer]. Start: 09-24-2024 Blood count complete auto&auto difrntl wbc CBC, PLATELETS & AUT DIFF (F) (77562) Start: 24-Sep-2024 13:19-04:00 [facility] [place] [email or web address]. Start: 09-24-2024 Patient encounter procedure Medical; PHYSICAL [facility] Start: 24-Sep-2024 10:00-04:00 VALENTÍN Weiss [facility]ment [facility] Start: 08-02-2024 [facility] Start: 06-27-2024 Myocardial spect multiple studies Stress Test Nuclear Treadmill (44370) Start: 27-Jun-2024 [facility] [email or web address]. Start: 06-27-2024 Patient encounter procedure Medical; EXTENDED RTN - rtn [facility] Start: 27-Jun-2024 10:00-04:00 VALENTÍN Weiss [facility]ment [facility] Start: 05-26-2024 [facility] Start: 01-06-2024 Depression Screening Depression Screening [facility] Start: 12-16-2023 Hemoglobin A1c measurement Diabetes: Hemoglobin A1C [facility] Start: 09-21-2023 Lipid panel [facility], [employer]ionic.; [facility] Start: 09-21-2023 [facility]ylated [facility]c [facility] Start: 08-24-2023 [facility] Start: 05-03-2023 Assay of thyroid stimulating hormone tsh [facility] [employer] [facility] Start: 05-03-2023 Comprehensive metabolic panel [facility] Start: 05-03-2023 Hemoglobin glycosylated a1c [facility] Start: 04-20-2023 [facility] Start: 02-23-2023 End: 02-23-2023 Patient encounter procedure 02/23/2023 3:50 PM EST Office Visit [facility] [address] [place] [phone] Eliane Han MD [address] [place] [address] [facility] Start: 02-14-2023 End: 02-14-2023 Patient encounter procedure 02/14/2023 7:45 AM EST Appointment [facility] [address] [place] [phone] Rosana Travis, SILK WASHING MACHINE OPERATOR - [facility] [address] [place] [address] [facility] Start: 02-07-2023 End: 02-07-2023 Patient encounter procedure 02/07/2023 10:40 AM EST Office Visit [facility] [address] [place] [phone] Karen Alston APRN [address] [place] [phone] [facility] Start: 01-05-2023 End: 01-05-2023 Patient encounter procedure 01/05/2023 3:40 PM EST Office Visit [facility] [address] [place] [phone] Eliane Han MD [address] [place] [address] [facility] Start: 01-03-2023 End: 01-03-2023 Patient encounter procedure 01/03/2023 12:00 PM EST Appointment [facility] [address] [place] [phone] [facility] Start: 01-03-2023 Subsequent hospital visit by physician 01/03/2023 12:00 PM EST Hospital Encounter [facility] [address] [place] [phone] [facility] Start: 12-22-2022 End: 12-22-2022 Patient encounter procedure 12/22/2022 10:20 AM EST Office Visit [facility] [address] [place] [phone] Eliane Han MD [address] [place], [place] [phone] [facility] Start: 12-18-2022 End: 12-18-2022 Admission to same day surgery center 12/18/2022 7:30 AM EST - 12/18/2022 8:00 AM EST Surgery [facility] [address] [place] [phone] Jean Paul Bailey MD [address] [place] [phone] EGD WITH BIOPSY [68003 (CPT )] [facility] Comment on above: EGD WITH BIOPSY [14022 (CPT )] Start: 12-18-2022 End: 12-18-2022 Egd transoral biopsy single/multiple [facility] Start: 12-18-2022 Subsequent hospital visit by physician 12/18/2022 7:30 AM EST Hospital Encounter [facility] [address] [place] [phone] Jean Paul Bailey MD [address] [place] [address] [facility] Start: 11-23-2022 End: 11-23-2022 Patient encounter procedure 11/23/2022 2:30 PM EDT Office Visit [facility] [address] [place] [phone] Jean Paul Bailey MD [address] [place], [place] [phone] Eliane Han MD [address] [place], [place] [phone] [facility] Start: 11-15-2022 End: 11-16-2023 Complete PFT pre and post bronchodilator with FENO Complete PFT pre and post bronchodilator with FENO PFT Routine Asthma, unspecified asthma severity, unspecified whether complicated, unspecified whether persistent Expected: 11/15/2022 (Approximate), Expires: 11/16/2023 [facility] Work Phone: Comment on above: Expected: 11/15/2022 (Approximate), Expi res: 11/16/2023 Start: 10-20-2022 End: 10-20-2022 Clinical Support 10/20/2022 3:00 PM EDT Clinical Support [facility] [address] [place] [address] Jean Paul Bailey MD [address] [place], [place] [phone] Aleisha [address] [place], [place] [phone] [facility] Start: 10-06-2022 Influenza vaccination Influenza Vaccine (#1) [facility] Start: 10-05-2022 End: 10-05-2022 Clinical Support 10/05/2022 3:00 PM EDT Clinical Support [facility] [address] [place] [phone] Jean Paul Bailey MD [address] [place] [address] [place], [place] [phone] [facility] Start: 09-29-2022 End: 09-16-2023 25-hydroxyvitamin D3 [Mass/volume] in Serum or Plasma Vitamin D Deficiency Screening (Vit D 25) Lab Routine GERD without esophagitis Type 2 diabetes mellitus without complication, without long-term current use of insulin ([facility]/HCC) (HCC) Morbid obesity with BMI of 50.0-59.9, adult ([facility]) Expected: 09/29/2022 (Approximate), Expires: 09/16/[address] [facility] [employer] Comment on above: Expected: 09/29/2022 (Approximate), Expi res: 09/16/2023 Start: 09-29-2022 End: 09-16-2023 CBC panel - Blood by Automated count CBC Lab Routine GERD without esophagitis Type 2 diabetes mellitus without complication, without long-term current use of insulin ([facility]) ([facility]) Morbid obesity with BMI of 50.0-59.9, adult (HCC) Expected: 09/29/2022 (Approximate), Expires: 09/16/[address] [facility] [employer] Comment on above: Expected: 09/29/2022 (Approximate), Expi res: 09/16/2023 Start: 09-29-2022 End: 09-16-2023 Cobalamin (Vitamin B12) [Mass/volume] in Serum or Plasma Vitamin B12 Lab Routine GERD without esophagitis Type 2 diabetes mellitus without complication, without long-term current use of insulin ([facility]) ([facility]) Morbid obesity with BMI of 50.0-59.9, adult ([facility]) Expected: 09/29/2022 (Approximate), Expires: 09/16/[address] [facility] [employer] Comment on above: Expected: 09/29/2022 (Approximate), Expi res: 09/16/2023 Start: 09-29-2022 End: 09-16-2023 Comprehensive metabolic 1998 panel - Serum or Plasma Comprehensive metabolic panel Lab Routine GERD without esophagitis Type 2 diabetes mellitus without complication, without long-term current use of insulin ([facility]) ([facility]) Morbid obesity with BMI of 50.0-59.9, adult (HCC) Expected: 09/29/2022 (Approximate), Expires: 09/16/[address] [facility] [employer] Comment on above: Expected: 09/29/2022 (Approximate), Expi res: 09/16/2023 Start: 09-29-2022 End: 09-16-2023 Ferritin [Mass/volume] in Serum or Plasma Ferritin Lab Routine GERD without esophagitis Type 2 diabetes mellitus without complication, without long-term current use of insulin ([facility]) ([facility]) Morbid obesity with BMI of 50.0-59.9, adult (HCC) Expected: 09/29/2022 (Approximate), Expires: 09/16/2023 [facility] Comment on above: Expected: 09/29/2022 (Approximate), Expi res: 09/16/2023 Start: 09-29-2022 End: 09-16-2023 Folate [Mass/volume] in Serum or Plasma Folate Lab Routine GERD without esophagitis Type 2 diabetes mellitus without complication, without long-term current use of insulin (CMS/[facility]) (HCC) Morbid obesity with BMI of 50.0-59.9, adult (HCC) Expected: 09/29/2022 (Approximate), Expires: 09/16/[address] [facility] [employer] Comment on above: Expected: 09/29/2022 (Approximate), Expi res: 09/16/2023 Start: 09-29-2022 End: 09-16-2023 Hemoglobin A1c measurement Hemoglobin A1c Lab Routine GERD without esophagitis Type 2 diabetes mellitus without complication, without long-term current use of insulin (CMS/[facility]) (HCC) Morbid obesity with BMI of 50.0-59.9, adult (HCC) Expected: 09/29/2022 (Approximate), Expires: 09/16/2023 [facility] Work Phone: Comment on above: Expected: 09/29/2022 (Approximate), Expi res: 09/16/2023 Start: 09-29-2022 End: 09-16-2023 Hemoglobin A1c/Hemoglobin.total in Blood Hemoglobin A1c Lab Routine GERD without esophagitis Type 2 diabetes mellitus without complication, without long-term current use of insulin ([facility]) (HCC) Morbid obesity with BMI of 50.0-59.9, adult (HCC) Expected: 09/29/2022 (Approximate), Expires: 09/16/2023 [facility] Work Phone: Comment on above: Expected: 09/29/2022 (Approximate), Expi res: 09/16/2023 Start: 09-29-2022 End: 09-16-2023 Iron and Iron binding capacity panel - Serum or Plasma Iron Lab Routine GERD without esophagitis Type 2 diabetes mellitus without complication, without long-term current use of insulin (CMS/[facility]) (HCC) Morbid obesity with BMI of 50.0-59.9, adult (HCC) Expected: 09/29/2022 (Approximate), Expires: 09/16/[address] [facility] [employer] Comment on above: Expected: 09/29/2022 (Approximate), Expi res: 09/16/2023 Start: 09-29-2022 End: 09-16-2023 Lipid 1996 panel - Serum or Plasma Lipid panel Lab Routine GERD without esophagitis Type 2 diabetes mellitus without complication, without long-term current use of insulin ([facility]) ([facility]) Morbid obesity with BMI of 50.0-59.9, adult ([facility]) Expected: 09/29/2022 (Approximate), Expires: 09/16/[address] [facility] [employer] Comment on above: Expected: 09/29/2022 (Approximate), Expi res: 09/16/2023 Start: 09-29-2022 End: 09-16-2023 Magnesium [Mass/volume] in Serum or Plasma Magnesium Lab Routine GERD without esophagitis Type 2 diabetes mellitus without complication, without long-term current use of insulin ([facility]) ([facility]) Morbid obesity with BMI of 50.0-59.9, adult ([facility]) Expected: 09/29/2022 (Approximate), Expires: 09/16/[address] [facility] [employer] Comment on above: Expected: 09/29/2022 (Approximate), Expi res: 09/16/2023 Start: 09-29-2022 End: 09-16-2023 Thyrotropin [Units/volume] in Serum or Plasma TSH Lab Routine GERD without esophagitis Type 2 diabetes mellitus without complication, without long-term current use of insulin ([facility]) ([facility]) Morbid obesity with BMI of 50.0-59.9, adult ([facility]) Expected: 09/29/2022 (Approximate), Expires: 09/16/[address] [facility] [employer] Comment on above: Expected: 09/29/2022 (Approximate), Expi res: 09/16/2023 Start: 09-29-2022 End: 09-16-2023 US Abdomen US abdomen complete Imaging Routine GERD without esophagitis Type 2 diabetes mellitus without complication, without long-term current use of insulin ([facility]) ([facility]) Morbid obesity with BMI of 50.0-59.9, adult ([facility]) Expected: 09/29/2022 (Approximate), Expires: 09/16/2023 [employer] Comment on above: Expected: 09/29/2022 (Approximate), Expi res: 09/16/2023 Start: 09-29-2022 End: 09-16-2023 Vitamin B1, whole blood Vitamin B1, whole blood Lab Routine GERD without esophagitis Type 2 diabetes mellitus without complication, without long-term current use of insulin (CMS/[facility]) (HCC) Morbid obesity with BMI of 50.0-59.9, adult (HCC) Expected: 09/29/2022 (Approximate), Expires: 09/16/2023 [employer] Comment on above: Expected: 09/29/2022 (Approximate), Expi res: 09/16/2023 Start: 09-29-2022 End: 09-16-2023 XR Abdomen and RF Gastrointestinal tract upper W contrast PO FL upper GI w KUB Imaging Routine GERD without esophagitis Type 2 diabetes mellitus without complication, without long-term current use of insulin (CMS/HCC) (HCC) Morbid obesity with BMI of 50.0-59.9, adult (HCC) Expected: 09/29/2022 (Approximate), Expires: 09/16/[address] [facility] [employer] Comment on above: Expected: 09/29/2022 (Approximate), Expi res: 09/16/2023 Start: 09-29-2022 End: 09-16-2023 Zinc Zinc Lab Routine GERD without esophagitis Type 2 diabetes mellitus without complication, without long-term current use of insulin ([facility]) (HCC) Morbid obesity with BMI of 50.0-59.9, adult (HCC) Expected: 09/29/2022 (Approximate), Expires: 09/16/[address] [facility] [employer] Comment on above: Expected: 09/29/2022 (Approximate), Expi res: 09/16/2023 Start: 09-19-2022 End: 09-20-2023 Nicotine, Blood Nicotine, Blood Lab Routine Encounter for screening for tobacco use Expected: 09/19/2022, Expires: 09/20/[address] [facility] [employer] Comment on above: Expected: 09/19/2022, Expires: Start: 07-06-2022 Echo tthrc r-t 2d w/wom-mode compl spec&colr d TTE W/DOPPLER COMPLETE [facility] Start: 05-26-2022 Cv strs tst xers&/or rx cont ecg w/si&r [employer] Start: 10-24-2021 Radiography of spine [facility] Work Phone: Start: 10-24-2021 Patient discharge [facility] Work Phone: Start: 10-06-2021 Influenza vaccination INFLUENZA (#1) [facility] Start: 08-23-2021 End: 10-23-2021 MONOCLONAL PROTEIN, SERUM (BLOOD) [facility] Work Phone: Comment on above: Expected: 08/23/2021, Expires: 2 Start: 08-23-2021 End: 10-23-2021 PROTEIN ELECTROPHORESIS SERUM W/INTERP [facility] Work Phone: Comment on above: Expected: 08/23/2021, Expires: 2 Start: 03-09-2021 Foot examination performed [employer].; [employer], [employer]. Start: 06-04-2020 Culture bct isol&prsmptv id isolate ea urine [employer]; [employer] Start: 11-06-2019 [employer].; [employer] Start: 2019 Mammography MAMMOGRAM [facility] Start: 2019 Screening for malignant neoplasm of breast Mammogram [facility] Start: 04-02-2018 [employer] Start: 04-02-2018 Culture bacterial quanttative colony count urine [employer].; [employer]. Start: 09-12-2017 Td vaccine prsrv free 7 yrs or older for im use [employer].; [employer]. Start: 09-12-2017 [employer].; [employer]. Start: 06-25-2017 Screening mammography bi 2-view breast inc cad [employer].; [employer] [facility] [employer] Start: 06-25-2017 Sleep std rec vntj respir ecg/hrt rate&o2 attn [employer].; [employer] [facility] [employer] Start: 05-17-2017 [facility] [employer] [facility] [employer] Start: 04-27-2017 Radiologic exam chest 2 views [employer].; [employer] [facility] [employer] Start: 03-23-2017 Removal impacted cerumen irrigation/lvg unilat [facility] [employer].; [employer] [facility] [employer]. Start: 01-04-2017 [facility] [employer].; [employer] [facility] [employer] Start: 12-27-2016 [facility] [employer].; [employer] [facility] [employer], [employer]. Start: 10-25-2016 End: 10-25-2016 Collj & interpj physiol data min 30 min ea 30 d [employer].; [facility] [employer]. Start: 10-19-2016 Radiologic examination knee 3 views [employer].; [employer] [facility] [employer] Start: 09-12-2016 Blood count complete auto&auto difrntl wbc [facility] [employer]; [employer] Start: 09-06-2016 Ct abdomen & pelvis w/contrast material [employer].; [facility] [employer]. Start: 09-06-2016 Hemoglobin glycosylated a1c [employer].; [facility] [employer], [employer]. Start: 11-16-2015 Complete tthrc echo congenital cardiac anomaly [employer].; [employer] [facility] [employer], [employer]. Start: 11-04-2015 Complete tthrc echo congenital cardiac anomaly [facility] [employer] [facility] [employer]. Start: 11-04-2015 Cv strs tst xers&/or rx cont ecg w/si&r [facility]; [facility] [facility] Start: 10-06-2014 Gluc bld gluc mntr dev cleared fda spec home use [facility]; [facility] Start: 09-29-2014 Comprehensive metabolic panel [facility]; [facility] Start: 2009 HPV TESTING HPV TESTING [facility] Start: 2009 Screening for malignant neoplasm of cervix [facility] Start: 01-02-2000 PAP TESTING PAP TESTING [facility] Start: 01-02-2000 Screening for malignant neoplasm of cervix Pap Smear [facility] Start: 1998 DTaP/Tdap/Td Vaccines (1 - Tdap) DTaP/Tdap/Td Vaccines (1 - Tdap) [facility] Start: 1998 Urine microalbumin profile DTAP,TDAP,TD (1 - Tdap) [facility] Start: 1997 HEPATITIS C SCREENING HEPATITIS C SCREENING [facility] Start: 1997 Hepatitis C screening Hepatitis C Screening [facility] Start: 1997 HIV SCREENING HIV SCREENING [facility] Start: 1991 Adult depression screening assessment DEPRESSION SCREENING [facility] Start: 1989 Diabetic foot examination Diabetes: Foot Exam [facility] Start: 1989 Glaucoma screening Diabetes: Retinopathy Screening [facility] Start: 1989 Preventive dental service Diabetes: Dental Exam [facility] Start: 1985 Pneumococcal Vaccine: Pediatrics (0 to 5 Years) and At-Risk Patients (6 to 64 Years) (1 - PCV) Pneumococcal Vaccine: Pediatrics (0 to 5 Years) and At-Risk Patients (6 to 64 Years) (1 - PCV) [facility] Start: 1985 Pneumococcal Vaccine: Pediatrics (0 to 5 Years) and At-Risk Patients (6 to 64 Years) (1 of 2 - PCV) Pneumococcal Vaccine: Pediatrics (0 to 5 Years) and At-Risk Patients (6 to 64 Years) (1 of 2 - PCV) [facility] Start: 01-02-1980 MMR Vaccines (1 of 1 - Standard series) MMR Vaccines (1 of 1 - Standard series) [facility] Start: 05-27-1980 COVID-19 VACCINE (#1) COVID-19 VACCINE (#1) [facility] Start: 1979 Hemoglobin A1c measurement Diabetes: Hemoglobin A1C [facility] Start: 1979 Hepatitis B Vaccines (1 of 3 - 3-dose series) Hepatitis B Vaccines (1 of 3 - 3-dose series) [facility] Start: 1979 HIV screening HIV Screening [facility] Start: 1979 Lipid panel Lipid Panel [facility] CTA Heart and [place] ry arteries W contrast IV [facility] MONOCLONAL PROT 24 U R W/INTERP MONOCLONAL PROT 24 UR W/INTERP Lab Routine MGUS (monoclonal gammopathy of unknown significance) Ordered: 08/23/2021 [facility] Work Phone: Comment on above: Ordered: 08/23/2021 OUTSIDE PROCEDURE SCAN OUTSIDE P ROCEDURE SCAN Procedures Ordered: 01/02/2023 [facility] Comment on above: Ordered: 01/02/2023 OUTSIDE PROCEDURE SCAN OUTSIDE P ROCEDURE SCAN Procedures Ordered: 02/13/2023 [facility] Comment on above: Ordered: 02/13/2023 Patient Education [facility] Work Phone: Patient referral [facility] Work Phone: Polysomnography [facility] PROT ELEC UR 24HR W/ M SPIKE (P) PROT ELEC UR 24HR W/M SPIKE (P) Lab Routine MGUS (monoclonal gammopathy of unknown significance) Ordered: 08/23/2021 [facility] Work Phone: Comment on above: Ordered: 08/23/2021 PROT ELEC UR 24HR W/ M SPIKE AND INTERP PROT ELEC UR 24HR W/M SPIKE AND INTERP Lab Routine MGUS (monoclonal gammopathy of unknown significance) Ordered: 08/23/2021 [facility] Work Phone: Comment on above: Ordered: 08/23/2021 Protein [Mass/time] in 24 hour Urine PROTEIN 24 HR URINE Lab Routine MGUS (monoclonal gammopathy of unknown significance) Ordered: 08/23/2021 [facility] Work Phone: Comment on above: Ordered: 08/23/2021 End: 09-22-2022 Radiologic examination osseous survey compl XR BONE SURVEY ROUTINE Radiology Routine MGUS (monoclonal gammopathy of unknown significance) 1 Occurrences starting 08/23/2021 until 09/22/2022 [facility] Work Phone: Comment on above: 1 Occurrences starting 08/23/2021 until 09/22/2022 Tissue exam [facility] Work Phone: Comment on above: Release Upon Ordering for 1 Occurrences starting 12/18/2022 [facility] 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 influenza virus vaccine, unspecified formulation [employer] PharmaceuticalsFSTETTER GARDEN LABOURER-C Work Phone: [facility] Payers Date Payer Category Payer Medicare [id number] 2024 Self-pay [id number] 2024 Unknown [id number] 2021 Medicaid [id number] 2021 Unknown [id number] 2014 Medicaid [place] [employer] MEDICAID [id number] 2014-Present [phone] [facility] [address] [place] [address] Medicaid [id number] 1979 Unknown [id number] 1979 Unknown [id number] [id number] 1979 Unknown [id number] 2.16.840.1.469892.3.579.2.651 Unknown Unknown [id number] 2.16.840.1.995860.3.579.2.462 Unknown [id number] 2.16.840.1.725850.3.579.2.462 Unknown [id number] 2.16.840.1.350059.3.579.2.462 Unknown [id number] 2.16.840.1.232531.3.579.2.462 Unknown [id number] 2.16.840.1.443257.3.579.2.462 Unknown [id number] 2.16.840.1.156978.3.579.2.462 Unknown [id number] 2.16.840.1.289188.3.579.2.462 Unknown [id number] 2.16.840.1.230848.3.579.2.462 Unknown [id number] 2.16.840.1.920774.3.579.2.462 Unknown [id number] [id number] Unknown [id number] [id number] Social History Date Type Detail Facility Start: 03-07-2016 End: 08-02-2024 Tobacco smoking status NHIS Never smoked tobacco [facility] Start: 03-07-2016 End: 11-15-2022 Tobacco use and exposure Smokeless tobacco non-user [facility] Start: 08-23-2021 End: 09-06-2021 Alcohol intake Current non-drinker of alcohol (finding) [facility] Start: 03-07-2016 Tobacco Comment No smoking in childhood home. [facility] Start: 1980 Sex Assigned At Not on file [facility] Start: 08-13-2021 End: 10-20-2022 Exposure to SARS-CoV-2 (event) Not sure [facility] Start: 11-23-2020 End: 08-30-2022 Tobacco smoking status NHIS Unknown if ever smoked [facility] Start: 1980 Sex Assigned At Female [facility] Start: 08-30-2022 End: 01-05-2023 Alcohol intake Ex-drinker (finding) [facility] Start: 11-15-2022 End: 01-05-2023 Gender identity Not on file [facility] Start: 11-15-2022 End: 01-05-2023 History of Social function [facility] No Alcohol Use. [facility] . [facility] Never smoker. [facility]. NEGATED: Highlighted row [facility] Medical Equipment Procedure Code Equipment Code Equipment Origin al Text Equipment Identifier Dates [id number] Start: 03-08-2022 Goals Date Patient Goal Desired Activity /State Mental Status Date Assessment Result Facility 11-05-2024 Cognitive function Voice/Name [facility] Work Phone: 05-18-2022 Cognitive function Level Of Cons ciousness Awake;Alert;Appropriate;Follow s Commands [facility] Work Phone: 10-24-2021 Cognitive function Awake;Alert;A ppropriate;Follow s Commands [facility] Work Phone: Clinical Notes 08-23-2021 to 10-28-2024 Note Date & Type Note Facility 10-28-2024 Evaluation note Diagnosis Onset Date Resolution Abnormal stress test acute Oct 8:35am Chest pain acute October 8:35am VINCENT (dyspnea on exertion) acute October 28, 2024 8:35am Fatigue acute October 8:35am Palpitations acute October 282024 8:35am [facility] Work Phone: 1(221) 208-234709-23-2025 Progress [facility] [address] [place] [address] OFFICE VISIT Date of Service: 10/28/24 MR#: [id number] Acct: [id number] Name: SAHRA BRICEÑO Rep #: [id number] : 1980 Provider: GEOVANY Mckeon Age/Sex: 44/F Location: [facility] Status: Signed HPI HPI History of Present Illness Details: This is a 44-year-old female who presents here today for cardiovascular follow up. Patient has not been seen in our office since September 2022. She presented to [facility] on 05/18/2022 for increased shortness of breath and chest discomfort. PCP did start her on oral Lasix. Patient wasconcerned because she did not have much cardiac output. Ultrasound for DVT was negative. She does have a strong family history of coronary artery disease. She does havea history of hypertension, asthma, glucose intolerance. While in the emergency room she did undergo a CTA because she did have an elevated D-dimer. This did not demonstrate any PE or dissection. Troponin was negative and not measurable. BNP was 6.5. On an outpatient basis she underwent a stress test, this was a treadmill tolerance test-which did not have nuclear imaging. Patient had an inability to reach maximum predicted heartrate. She is only able to walk 1 minute and 11 seconds for a total of 4.6 METS. She did have chest discomfort. Her functional capacity was significantly decreased for age. She did undergo a cardiac cath, this was normal. She underwent a stress test at [facility] on 10/22/2024 which demonstrated abnormal myocardial perfusion study, resting images show anterior and anteroseptal wall perfusion defect. Stress images show significant worsening of anterior and anteroseptal wall perfusion defect, this is concerningfor anterior and anteroseptal wall ischemia. From a cardiac standpoint, the patient is doing well. She does acknowledge occasional palpitations-she describes this as a fast heart beat. She does acknowledge chest pain with exertion and at rest. She states this radiates to her left arm, back, and into her neck. This can be brief, and other times it canlast for a while. She does have SOB with exertion and at rest. She states that she does use her inhaler daily-this does not help. She denies Orthopnea, and PND. She does have MARIAM-but is untreated. She does not have bleeding issues; no blood in urine, stool, or nosebleeds. She does acknowledge fatigue. She denies myalgias, or claudication. She does acknowledge BLE edema, and sudden weight gain over a week. She does acknowledge occasional lightheadedness with quick positional changes. She denies dizziness, syncopal or near syncopal episodes, and headaches. Intake Vital Signs 08/02/24 08:16 10/28/24 07:01 Height 5 ft 2 in 5 ft 2 in Weight: 319 lb BMI 58.3 BP 129/79 H Blood Pressure Location Lt brachial Position Sitting Respiration 20 H Pulse 83 Pulse Source Monitor Pulse Oximetry (%) 96 Intake Visit Reasons: OVERDUE FOR OV/LAST SEEN 2022 Gse Mechanic Required: No Is patient in pain?: No Allergies cephalexin Allergy (Verified 10/28/24 09:06) Other ciprofloxacin (From Cipro) Allergy (Verified 10/28/24 09:06) Other lisinopril Allergy (Verified 10/28/24 09:06) Other methylprednisolone (From Medrol) Allergy (Verified 10/28/24 09:06) Other nitrofurantoin (From Macrobid) Allergy (Verified 10/28/24 09:06) Other Penicillins (PCN) Allergy (Verified 10/28/24 09:06) Rash sulfamethoxazole (From Bactrim) Allergy (Verified 10/28/24 09:06) Other trimethoprim (From Bactrim) Allergy (Verified 10/28/24 09:06) Other diphenhydramine (From Benadryl Allergy) Adverse Reaction (Intermediate, Xddhzwjb54/23/25 09:06) Anaphylaxis Medications ?Medication ?Instructions ?Recorded ?Confirmed ?Type budesonide-formoterol HFA 160 2 puff inhalation BID 10/28/24 History mcg-4.5 mcg/actuation aerosol inhaler (Symbicort) albuterol sulfate 90 mcg/actuation 1 puff inhalation Q 6H PRN 06/12/22 10/28/24 History aerosol inhaler (Ventolin HFA) shortness of breath or wheezing sertraline 100 mg tablet 100 mg PO BID 06/12/2210/28 History naproxen 500 mg tablet 500 mg PO BID PRN #20 tabs 0 08/02/24 10/28/24 Rx fenofibrate nanocrystallized 145 145 mg PO QDAY 10/28/24 History mg tablet metformin 500 mg tablet 500 mg PO BID 10/28/2410/28 History metoprolol tartrate 50 mg tablet 50 mg PO QDAY Cardiac CTA #1 TAB 10/28/24 10/28/24 Rx pantoprazole 40 mg tablet,delayed 40 mg PO QDAY 10/28/24 History release potassium chloride 20 mEq 20 meq PO QDAY 10/28/2410/07 History tablet,extended release (K-Tab) Have you fallen in the past year?: Yes PFSH Medical History Depression COVID-19 Asthma Diabetes mellitus Surgical History H/O: hysterectomy Hx laparoscopic cholecystectomy Family History Father , age 63 Heart disease MARIAM (obstructive sleep apnea) Sister MARIAM (obstructive sleep apnea) Social History Smoking Status: Never smoker substance use type: does not use ROS Const Const: Positive for fatigue; Negative for weakness, headache(s) or frequent falls Eyes Eyes: Negative for blurry vision ENT ENT: Negative for headache(s), dizziness or Nosebleed/epistaxis Cardio Chest Pain: Yes Frequency: daily Onset: at rest and exercise Location: left chest and other (radiates to left shoulder, back and neck. ) Duration: minutes and brief Palpitations: Yes Edema: Bilateral Muscle aches with walking: None Resp Respiratory: Positive for SOB with activity and SOB at rest; Negative for SOB orthopnea\SOB lying down GI GI: Negative nausea, vomiting, heartburn, bright, red blood in stools or black,tarry stools : Negative for hematuria Neuro Neuro: Positive for lightheadedness; Negative for dizziness, near syncope, syncope, frequent falls, headache(s), weakness or blurry vision Endo Endo: Positive for fatigue Cardiology Exam Const Appearance: cooperative, no acute distress and well developed Nutritional Appearance: obese Orientation: alert, awake and oriented x3 Head Head: normal to inspection, normocephalic and atraumatic Ears: hearing grossly normal bilaterally Nose: external nose normal Face and Sinus: face symmetric Eyes General: appearance normal, both eyes and all related structures Eyelids: eyelids normal Conjunctivae: conjunctivae normal Pupils: PERRL EOM: EOM intact bilaterally Neck Neck: normal visual inspection, no lymphadenopathy and no JVD Carotids: Negative bruit Neck Mass: Negative Neck mass Chest Chest inspection: normal inspection of the chest and symmetric chest movement Auscultation: Bilateral: Clear to Auscultation Cardio Palpation: normal PMI Rate: regular rate Rhythm: regular rhythm Heart sounds: S1 normal and S2 normal; Negative rub, gallop or murmur GI GI: normal to inspection, soft and obese; Negative tender Neuro General: patient alert, patient awake, patient oriented x3, CN's II-XI intact bilaterally and movesall extremities Skin Skin: no rashes or lesions noted Extremities Pulses: Normal: Right Posterior Tibial Pulse, Left Posterior Tibial Pulse, RightRadial Pulse and Left Radial Pulse Lower Extremity Edema: None: Bilateral Psych Psychological: normal affect Supplemental Info Supplemental Information Stress Test Report Date: 06/02/2022 ? Procedure: Exercise tolerance test ? Indications: Chest pain, dyspnea ? Consent: Per the patient ? Procedure: ? The patient exercised on a Usman protocol for 1 minute and 11 seconds achieving a peak heart rate of 144 bpm (81% predicted maximal heart rate) with a peak blood pressure 190/72 mmHg and a peak MET capacity of approximately 4.6 MET's. ? The baseline ECG demonstrated normal sinus rhythm.? The peak exercise ECG demonstrated no significant ischemic changes. ? [There were no cardiac dysrhythmias pretest, during exercise, or recovery]. ? The functional capacity was considered significantly decreased for age. ? The patient had chest pressure and shortness of breath with exercise. The examination was discontinued secondary to severe shortness of breath, chest pressure. ? Impression: ? 1.? Inability to reach 85% of maximal age-predicted heart rate decreases the sensitivity of this test 2.? Stress test is positive for exercise-induced chest pain. 3.? Stress test test is negative for exercise-induced EKG changes of ischemia.? 4.? Functional capacity is significantly decreased for age Heart cath 2022: Normal coronary arteries RECOMMENDATIONS Medical therapy DESCRIPTION [...] multiple views using a 5 Fr. 4.0 [place] catheter. Left Coronary Artery selective angiography was [...] Angiographically normal RIGHT CORONARY ARTERY: Angiographically normal Labs: LDL Cholesterol, (0-130) 65 mg/dL HDL Cholesterol, (40-) 46 mg/dL Cholesterol, (<=200) 115 mg/dL Triglycerides, (-199) 99 mg/dL Diagnostics: Electrocardiogram Echocardiogram Stress Test Cardiac Catheterization Chest X-Ray Chest CTA Venous Doppler Study Past Visits: Cardiology Visit Today Assessment and Plan Assessment and Plan (1) Abnormal stress test: Status: Acute Plan: She underwent a stress test at [facility] on 10/22/2024 which demonstrated abnormal myocardial perfusion study, resting images show anterior and anteroseptal wall perfusion defect. Stress images show significant worsening of anterior and anteroseptal wall perfusion defect, this is concerningfor anterior and anteroseptal wall ischemia. Her most recent cardiac catheterization from 06/30/2022 demonstrated normal coronary arteries. Did review recent stress test with Dr. Seth, he recommends a CT angiogram, and calcium score to further assess this and determine if patient should be on lipidlowering medication. Depending on results, further recommendations will be made. (2) VINCENT (dyspnea on exertion): Status: Acute Plan: Patient does acknowledge dyspnea on exertion. Would like to obtain an echocardiogram to assess patient's left ventricular systolic function, and valves; will also obtain lab work to further assess for any fluid overload. Depending on results, further recommendations will be made. (3) Chest pain: Status: Acute Plan: Patient does acknowledge chest pain. Her EKG from today demonstrates normal sinus rhythm with heartrate of 92 bpm. Her most recent cardiac catheterization from 06/30/2022 demonstrated normal coronaryarteries. Her stress test from 10/22/2024 from an outside hospital demonstrated abnormal myocardial perfusion study, resting images show anterior and anteroseptal wall perfusion defect. Stress images show significant worsening of anterior and anteroseptal wall perfusion defect, this is concerning for anterior and anteroseptal wall ischemia. Did review recent stress test with Dr. Seth, he recommends a CT angiogram, and calcium score to further assess patient's chest pain. (4) Palpitations: Status: Acute Plan: Patient acknowledges palpitations. She describes this as a fast/racing sensation. Would like to obtain a 48-hour Holter monitor to further assess this. Depending on results, further recommendations will be made. (5) Fatigue: Status: Acute Plan: Patient acknowledges fatigue. Would like to obtain lab work to further assess this. Depending on results, further recommendations will be made. Orders: Orders 12 Lead EKG performed by [facility] Today I20.9 - Angina pectoris, unspecified Cardiac Angiography CTA Today R07.9 - Chest pain, unspecified Cardiac Calcium Scoring Today R07.9 - Chest pain, unspecified Echo Complete Today R06.09 - Other forms of dyspnea, R07.9 - Chest pain, unspecified Basic Metabolic Profile (BMP) Today R06.09 - Other forms of dyspnea CBC W/Diff, Automated Today R06.09 - Other forms of dyspnea Thyroid Stim Hormone (TSH) Today R53.83 - Other fatigue Pro- Brain NATRIURETIC PEPTIDE Today R06.09 - Other forms of dyspnea Liver Profile Today E66.01 - Morbid (severe) obesity due to excess calories, Z68.43 - Body mass index [BMI] 50.0-59.9, adult Lipid Profile Today E66.9 - Obesity, unspecified Cardiac Holter Monitor, 48 Hrs Today R00.2 - Palpitations Medications: New metoprolol tartrate Take one tablet one hour prior to procedure 50 mg PO QDAY 1 TAB 0RF Cardiac CTA Discontinued fenofibrate Discontinued Reason: Duplicate Order 145 mg PO QDAY Plan Plan Details Additional Comments: Patient will follow-up in 6-8 weeks, or sooner if needed. Thank you for allowing me to participate in the care of your patient. Please do not hesitate to call if any issues arise. This note was generated using a voice recognition system and there may be incorrect words, spelling, or punctuation that were not noted when reviewing the office note prior to saving. Portions of this documentation were copied and pasted from previous office visit notes to provide cohesive continuity of the history. The note has been reviewed, edited, and updated, as necessary. Follow Up: 6-8 weeks (CARAMEL CUTTER HAND/PA) Coding Level of Care Code Off vis,est,level 4 Diagnoses Abnormal stress test R94.39 VINCENT (dyspnea on exertion) R06.09 Chest pain R07.9 Palpitations R00.2 Fatigue R53.83 Coding Level of Care Code Off vis,est,level 4 Diagnoses Abnormal stress test R94.39 VINCENT (dyspnea on exertion) R06.09 Chest pain R07.9 Palpitations R00.2 Fatigue R53.83 Clinical Quality Measures Falls Risk Screening/Assistive Devices Have you fallen in the past year?: Yes 10/28/24 1726 CARAMEL CUTTER HAND CARAMEL CUTTER HAND-C> Date _ Alessia Mckeon CARAMEL CUTTER HAND CARAMEL CUTTER HAND-C Cosigner Signature: Date (if applicable) CC: ~ [facility]06-28-2025 Radiology Diagnostic study note [facility] Imaging Services [address] [place] [place] [address] Shoulder min 2 Views MR#: [id number] Acct: [id number] Name: SAHRA BRICEÑO Rep #: [id number] : 1980 F 44 From: Sherri Tran MD PCP: DINO Mcpherson Status: REG ER Study:Shoulder min 2 Views Date of Exam: 08/02/24 Exam# [id number] Ordering Dr: Juan Gamez DO PROCEDURE: SHOULDER MIN 2 VIEWS 08/02/2024 REASON FOR EXAM: INJURY/PAIN TECHNIQUE: SHOULDER MIN 2 VIEWS COMPARISON: None FINDINGS: No acute fracture or dislocations. Mild degenerative changes of the acromioclavicular and glenohumeral joint space. No large joint effusion. Question trace calcific tendinopathy. Mild soft tissue edema. No radiographic foreign body. RAD/Shoulder min 2 Views IMPRESSION: No acute fracture or dislocations. Mild degenerative changes of the right shoulder. Question calcific tendinopathy of the right shoulder. Reading Location: [facility] CC: Dr. Juan Gamez DO; DINO Mcpherson ~ Automatic Teller Machine Servicer: Signed [facility]06-28-2025 Radiology Diagnostic study note [facility] Imaging Services [address] [place], [place] [address] Cerv Spine 2 or 3 Views MR#: [id number] Acct: [id number] Name: SAHRA BRICEÑO Rep #: [id number] : 1980 F 44 From: Sherri Tran MD PCP: DINO Mcpherson Status: REG ER Study:Cerv Spine 2 or 3 Views Date of Exam: 08/02/24 Exam# [id number] Ordering Dr: Juan Gamez DO PROCEDURE: CERV SPINE 2 OR 3 VIEWS 08/02/2024 REASON FOR EXAM: INJURY/PAIN TECHNIQUE: CERV SPINE 2 OR 3 VIEWS COMPARISON: None FINDINGS: Minimal multilevel degenerative changes of the cervical spine. No acute cervical fracture or subluxations. No acute soft tissue abnormalities. No radiographic foreign body. No dens fractures. RAD/Cerv Spine 2 or 3 Views IMPRESSION: Minimal multilevel degenerative changes of the cervical spine. No acute findings. Reading Location: [id number] CC: Dr. Juan Gamez DO; DINO Mcpherson ~ Automatic Teller Machine Servicer: Signed [facility]12-01-2023 [facility] SURGICAL WEIGHT LOSS MANAGEMENT PROGRAM PROGRESS NOTE FOLLOW UP Patient: Sahra Briceño Date of : 1980 Service Date: 01/05/2023 DE Visit number: 2 of 6 Pre Program Weight Metrics Date of Initial Consultation:@FLOWLAST(8961)@ Initial Weight: @FLOWLAST([id number])@ Initial BMI: @FLOWLAST([id number])@ [place] Body Weight: @FLOWLAST([id number])@ Excess Body Weight: @FLOWLAST([id number])@ Follow Up Weight Metrics Last Three Weights [...] on home O2 Completed by: Sherita Small [facility]12-01-2023 History of Present illness Narrative* Sherita Small LPN - 01/05/2023 3:40 PM EST [facility] SURGICAL WEIGHT LOSS MANAGEMENT PROGRAM PROGRESS NOTE FOLLOW UP Patient: Sahra Briceño Date of : 1980 Service Date: 01/05/2023 DE Visit number: 2 of 6 Pre Program Weight Metrics Date of Initial Consultation:@FLOWLAST(8961)@ Initial Weight: @FLOWLAST([id number])@ Initial BMI: @FLOWLAST([id number])@ [place] Body Weight: @FLOWLAST([id number])@ Excess Body Weight: @FLOWLAST([id number])@ Follow Up Weight Metrics Last Three Weights [...] home O2 Completed by: Sherita Small LPN * Eliane Han MD - 01/05/2023 3:40 PM EST HPI, PHYSICAL EXAM, AND PLAN Patient is [...] protein, inadequate amounts of healthy fats, adequate amountsof green, leafy vegetables, and adequate amounts of [...] to regular monthly visits to meet the requirementsof her insurance company. Additionally, She is to adopt eating plan recommendations and show weight loss trend to demonstratereadiness for the changes that will be required [...] and INTO THE LUNGS every 6 hours ifneeded for wheezing BLOOD GLUCOSE MONITORING SUPPL (TRUE [...] is updated and completed. documented in this [facility]11-17-2023 [facility] SURGICAL WEIGHT LOSS MANAGEMENT PROGRAM PROGRESS NOTE FOLLOW UP Patient: Sahra Briceño Date of : 1980 Service Date: 12/22/2022 [place] Visit number: 2 of 6 Pre Program Weight Metrics Date of Initial Consultation:@FLOWLAST(8961)@ Initial Weight: @FLOWLAST([id number])@ Initial BMI: @FLOWLAST([id number])@ [place] Body Weight: @FLOWLAST([id number])@ Excess Body Weight: @FLOWLAST([id number])@ Follow Up Weight Metrics Last Three Weights [...] on home O2 Completed by: Jennie Jimenez [facility]11-17-2023 History of Present illness Narrative* Jennie Jimenez MA - 12/22/2022 10:20 AM EST [facility] SURGICAL WEIGHT LOSS MANAGEMENT PROGRAM PROGRESS NOTE FOLLOW UP Patient: Sahra Briceño Date of : 1980 Service Date: 12/22/2022 [place] Visit number: 2 of 6 Pre Program Weight Metrics Date of Initial Consultation:@FLOWLAST(8961)@ Initial Weight: @FLOWLAST([id number])@ Initial BMI: @FLOWLAST([id number])@ [place] Body Weight: @FLOWLAST([id number])@ Excess Body Weight: @FLOWLAST([id number])@ Follow Up Weight Metrics Last Three Weights [...] home O2 Completed by: Jennie Jimenez MA * Eliane Han MD - 12/22/2022 10:20 AM EST HPI, PHYSICAL EXAM, AND PLAN Patient is [...] protein, inadequate amounts of healthy fats, adequate amountsof green, leafy vegetables, and adequate amounts of [...] to regular monthly visits to meet the requirementsof her insurance company. Additionally, She is to adopt eating plan recommendations and show weight loss trend to demonstratereadiness for the changes that will be required [...] and INTO THE LUNGS every 6 hours ifneeded for wheezing BLOOD GLUCOSE MONITORING SUPPL (TRUE [...] is updated and completed. documented in this [facility]11-13-2023 NotePatient: Sahra Alves Briceño Procedure Summary Date: 12/18/22 Room / Location: [facility] 8 / [facility] G[facility] Anesthesia Start: 737 Anesthesia Stop: 749 Procedure: EGD WITH BIOPSY Diagnosis: Gastro-esophageal reflux disease without esophagitis (Gastro-esophageal reflux disease without esophagitis [K21.9]) Providers: Jean Paul Bailey MD Responsible Provider: Morteza Coronado MD Anesthesia Type: MAC ASA Status: 3 Anesthesia Type: MAC Vitals Value Taken Time BP 125/73 12/18/22 0751 Temp 97.6 12/18/22 0754 Pulse 81 12/18/22 0751 Resp 18 12/18/22 0751 SpO2 97 % 12/18/22 075 Anesthesia Post [...] discharged once all PACU criteria has been met.[facility]11-13-2023 NotePatient: Sahra Briceño Procedure Summary Date: 12/18/22 Room / Location: [facility] / [facility] G[facility] Anesthesia Start: 737 Anesthesia Stop: 749 Procedure: EGD WITH BIOPSY Diagnosis: Gastro-esophageal reflux disease without esophagitis (Gastro-esophageal reflux disease without esophagitis [K21.9]) Providers: Jean Paul Bailey MD Responsible Provider: Morteza Coronado MD Anesthesia Type: MAC ASA Status: 3 Anesthesia Type: MAC Vitals Value Taken Time BP 125/73 12/18/22 0751 Temp 97.6 12/18/22 0753 Pulse 81 12/18/22 0751 Resp 18 12/18/22 0751 SpO2 97 % 12/18/22 0751 Anesthesia Post Evaluation Patient location during evaluation: [...] Allowed opportunity for questions and acknowledgement of understanding.[facility]11-13-2023 Telephone encounter Note* Telephone Encounter - Kate Tiwari NP - 12/18/2022 9:44 AM EST Pt had significant gastritis. Can we please start a PPI if she is not already on one for GERD. Thanks AD [facility] Work Phone: [phone] Miscellaneous Notes* Telephone Encounter - Kate Tiwari NP - 12/18/2022 9:44 AM EST Pt had significant gastritis. Can we please start a PPI if she is not already on one for GERD. Thanks AD * Telephone Encounter - Amber Lomax MA - 09/20/2022 9:30 AM EDT Orders mailed * Addendum Note - JESS Mata CNP - 09/19/2022 12:29 PM EDTAddended by: CHERRIE DELEON on: 09/19/2022 12:29 PM Modules accepted: Orders * Addendum Note - Aida Lees LPN - 09/15/2022 7:11 AM EDTAddended by: AIDA LEES on: 09/15/2022 07:11 AM Modules accepted: Orders * Telephone Encounter - Aida Lees LPN - 09/15/2022 7:09 AM EDT Orders pended, PULM added D/T MARIAM eval, Pre op check list scanned to media, EGD order sent to ALS. * Telephone Encounter - Aida Lees LPN - 09/15/2022 7:06 AM EDT PLAN Encounter Diagnoses Name Primary? GERD without esophagitis Type 2 diabetes mellitus without complication, without long-term current use of insulin (CMS/HCC) (HCC) Morbid obesity with BMI of 50.0-59.9, adult ([facility]) I have recommended proceeding with the evaluation and work-up for the primary procedure as outlinedbelow: PATIENT SUMMARY Sahra Bailey 42 y.o. female with Body mass index is 58.38 kg/m . SINGLE ANASTOMOSIS DUODENO-ILEOSTOMY W/SLEEVE (SINGLE STAGE) - aka JUANITA-S Procedure DM[x] HTN[] MARIAM[] GERD[x] HL[] OA[x] TOB[] Date of Surgery: TBD NOTES AD The patient would be a good candidate for 1 stage JUANITA-S, however would be ok with 2 stageif there is extensive scar tissue from previous [...] CONSULTATIONS CLEARANCE / MANAGEMENT Psychology [x] Dr. Cerdaitioscar [x] Cardiology [x] [] not ordered Pulmonary [...] related to anesthesia, conversion from laparoscopic to andopen procedure, the need for reoperative or endoscopic therapy, the potential for prolonged mechanical ventilation, and . All questions were fully answered to the patient's satisfaction and theywish to proceed with surgical intervention. A total of over 45 minute visit was spent in face to face encounter, counseling the patient, discussing the surgical/perioperative plan, record review and documentation. The patient was seen and examined independently and relevant data including a full chart rreview was performed by myself. * Telephone Encounter - Davidson MalhotraTraci Vidal - 08/30/2022 1:54 PM EDT Initial New [facility] surgical patient Navigation & Financial Counseling Discussion [...] PRIMARY INSURANCE: Payor: [place] / Plan: [place]ICA[place] ODM / Product Type: Medicaid HMO [...] 1) Scheduled at new pt surgeon visit: Milieu Manager (RD) for a Nutrition Assessment (BNA) and Pre-operative Diet and Exercise (DE)appointment #1. [x] Patient reminded to arrive 15 [...] before and after surgery. documented in this [facility]11-13-2023 [facility] Patient Name: Sahra Briceño Procedure Date: 12/18/2022 7:37 AM Gender: Female Date of : 1980 Age: 42 Admit Type: Outpatient Note Status: Finalized Endoscopist: Jean Paul Bailey MD, [id number] Procedure: Upper GI endoscopy Indications: Gastro-esophageal reflux [...] immediate complications. Procedure Code(s): --- Professional --- 53643, Esophagogastroduodenoscopy, flexible, transoral; with biopsy, single or multiple --- Technical --- 09135, Esophagogastroduodenoscopy, flexible, transoral; with biopsy, single or [...] due to excess calories CPT copyright 2021 [employer]. All rights reserved. The codes documented in this report are preliminary and upon geek squad manager review may be revised to meet current compliance requirements. Attending Participation: I was present and participated during the entire procedure from insertion to removal of the endoscope. Jean Paul Bailey MD 12/18/2022 9:46:32 AM This report has been signed electronically. Number of Addenda: 0 Note Initiated On: 12/18/2022 7:37 [facility]11-13-2023 Note JEAN PAUL BAILEY MD , FACS, [facility] MINIMALLY INVASIVE & METABOLIC / BARIATRIC SURGERY [facility] HISTORY AND PHYSICAL 12/18/2022 PATIENT: Sahra Briceño [...] Diagnosis Date Anxiety Asthma Back pain Depression VINCENT (dyspnea on exertion) GERD (gastroesophageal reflux disease) [...] Housing Stability: Not on file Family History: [facility] REVIEW OF SYSTEMS: CONSTITUTIONAL: Negative for fatigue, [...] and alternatives of treatmen (more content not included)...[facility]11-13-2023 NotePatient: Sahra Briceño Procedure Information Date/Time: 12/18/22729 Procedure: EGD WITH BIOPSY Location: [facility] 8 / [facility] G[facility] Providers: Jean Paul Bailey MD Relevant Problems Endo (+) Type 2 diabetes mellitus without complication, without long-term current use of insulin ([facility]) ([facility]) GI (+) Gastroesophageal reflux disease Past Medical History: Past Medical History: No date: Anxiety No date: Asthma No date: Back pain No date: Depression No date: VINCENT (dyspnea on exertion) No date: GERD (gastroesophageal reflux disease) No date: History of kidney stones No date: Joint pain, knee No date: Joint pain, knee No date: MGUS (monoclonal gammopathy of unknown significance) No date: Morbid obesity, unspecified obesity type ([facility]) No date: Snoring No date: Type 2 diabetes mellitus ([facility]) Past Surgical History: Past Surgical History: No [...] results found for this or any previous visit.[facility] 12-18-2022 Hospital Discharge instructions* Discharge Instructions* Sebastián Rodriguez RN - 12/18/2022 7:52 AM [...] mild sore throat. You may use an [id number]-[id number] chloraseptic spray, gargle with warm salt water, [...] a good idea to start with light mealsand ease into solid foods the first day. [...] TO NEAREST EMERGENCY DEPARTMENT documented in this [facility]11-13-2023 Note* Op Note - Jean Paul Bailey MD - 12/18/2022 7:37 AM EST [facility] Name: Sahra Briceño Procedure Date: 12/18/2022 7:37 AM Gender: Female Date of : 1980 Age: 42 Admit Type: Outpatient Note Status: Finalized Endoscopist: Jean Paul Bailey MD, [id number] Procedure: Upper GI endoscopy Indications: Gastro-esophageal reflux [...] immediate complications. Procedure Code(s): --- Professional --- 95235, Esophagogastroduodenoscopy, flexible, transoral; with biopsy, single or multiple --- Technical --- 22338, Esophagogastroduodenoscopy, flexible, transoral; with biopsy, single or [...] due to excess calories CPT copyright 2021 [employer]. All rights reserved. The codes documented in this report are preliminary and upon geek squad manager review may be revised to meet current compliance requirements. Attending Participation: I was present and participated during the entire procedure from insertion to removal of the endoscope. Jean Paul Bailey MD 12/18/2022 9:46:32 AM This report has been signed electronically. Number of Addenda: 0 Note Initiated On: 12/18/2022 7:37 AM [id number] Note* Op Note - Jean Paul Bailey MD - 12/18/2022 7:37 AM EST [facility] Patient Name: Sahra Briceño Procedure Date: 12/18/2022 7:37 AM Gender: Female Date of : 1980 Age: 42 Admit Type: Outpatient Note Status: Finalized Endoscopist: Jean Paul Bailey MD, [id number] Procedure: Upper GI endoscopy Indications: Gastro-esophageal reflux [...] immediate complications. Procedure Code(s): --- Professional --- 45424, Esophagogastroduodenoscopy, flexible, transoral; with biopsy, single or multiple --- Technical --- 36907, Esophagogastroduodenoscopy, flexible, transoral; with biopsy, single or [...] due to excess calories CPT copyright 2021 [employer]. All rights reserved. The codes documented in this report are preliminary and upon geek squad manager review may be revised to meet current compliance requirements. Attending Participation: I was present and participated during the entire procedure from insertion to removal of the endoscope. Jean Paul Bailey MD 12/18/2022 9:46:32 AM This report has been signed electronically. Number of Addenda: 0 Note Initiated On: 12/18/2022 7:37 AM [id number] Miscellaneous Notes* Op Note - Jean Paul Bailey MD - 12/18/2022 7:37 AM EST [facility] Patient Name: Sahra Briceño Procedure Date: 12/18/2022 7:37 AM Gender: Female Date of : 1980 Age: 42 Admit Type: Outpatient Note Status: Finalized Endoscopist: Jean Paul Bailey MD, [id number] Procedure: Upper GI endoscopy Indications: Gastro-esophageal reflux [...] immediate complications. Procedure Code(s): --- Professional --- 83817, Esophagogastroduodenoscopy, flexible, transoral; with biopsy, single or multiple --- Technical --- 48820, Esophagogastroduodenoscopy, flexible, transoral; with biopsy, single or [...] due to excess calories CPT copyright 2021 [employer]. All rights reserved. The codes documented in this report are preliminary and upon geek squad manager review may be revised to meet current compliance requirements. Attending Participation: I was present and participated during the entire procedure from insertion to removal of the endoscope. Jean Paul Bailey MD 12/18/2022 9:46:32 AM This report has been signed electronically. Number of Addenda: 0 Note Initiated On: 12/18/2022 7:37 AM documented in this [facility]11-13-2023 History and physical note* Alden Winters MD - 12/18/2022 7:31 AM EST Images from the original note were not included. JEAN PAUL BAILEY MD , FACS, [facility] MINIMALLY INVASIVE & METABOLIC / BARIATRIC SURGERY [facility] HISTORY AND PHYSICAL 12/18/2022 PATIENT: Sahra Briceño DATE OF : 1980 HISTORY OF PRESENT ILLNESS: The patient is a 42 y.o. female who presents for endoscopic evaluation of GERD in preparation for SINGLE ANASTOMOSIS DUODENO-ILEOSTOMY W/ SLEEVE (SINGLE STAGE) - ed MORALES, possible 1 stage versus 2stage depending on intraadominal scar tissue findings with Dr. Jean Paul Bailey. Thoroughly reviewed the patient's medical history, family history, social history and review of systems with the patient today in the office. Please see medical record for pertinent positives. Past Medical History: Past Medical History: Diagnosis Date Anxiety Asthma Back pain Depression VINCENT (dyspnea on exertion) GERD (gastroesophageal reflux disease) [...] and INTO THE LUNGS every 6 hours ifneeded for wheezing 08/25/22 Yes Historical Provider, Blood [...] Housing Stability: Not on file Family History: [facility]@ REVIEW OF SYSTEMS: CONSTITUTIONAL: Negative for fatigue, [...] understanding and willingness to proceed with plan. [facility] [employer] Work Phone: [phone] History and physical note* Alden Winters MD - 12/18/2022 7:31 AM EST Images from the original note were not included. JEAN PAUL BAILEY MD , FACS, [facility] MINIMALLY INVASIVE & METABOLIC / BARIATRIC SURGERY [facility] HISTORY AND PHYSICAL 12/18/2022 PATIENT: Sahra Briceño DATE OF : 1980 HISTORY OF PRESENT ILLNESS: The patient is a 42 y.o. female who presents for endoscopic evaluation of GERD in preparation for SINGLE ANASTOMOSIS DUODENO-ILEOSTOMY W/ SLEEVE (SINGLE STAGE) - ed MORALES, possible 1 stage versus 2stage depending on intraadominal scar tissue findings with Dr. Jean Paul Bailey. Thoroughly reviewed the patient's medical history, family history, social history and review of systems with the patient today in the office. Please see medical record for pertinent positives. Past Medical History: Past Medical History: Diagnosis Date Anxiety Asthma Back pain Depression VINCENT (dyspnea on exertion) GERD (gastroesophageal reflux disease) [...] and INTO THE LUNGS every 6 hours ifneeded for wheezing 08/25/22 Yes Historical Provider, Blood [...] Housing Stability: Not on file Family History: @FAMXNH@ REVIEW OF SYSTEMS: CONSTITUTIONAL: Negative for fatigue, [...] to proceed with plan. documented in this [facility]10-19-2023 History of Present illness Narrative* Sherita Small LPN - 11/23/2022 2:30 PM EDT [facility] SURGICAL WEIGHT LOSS MANAGEMENT PROGRAM SUPERVISED DIET [...] Weight: 305 lb 12.8 oz (139 kg) [place] Body Weight: 125 lb (56.7 kg) Initial [...] home O2 Completed by: Sherita Small LPN * Eliane Han MD - 11/23/2022 2:30 PM EDT [facility] SURGICAL WEIGHT LOSS MANAGEMENT PROGRAM PHYSICIAN SUPERVISED [...] a BMI of Body mass index is 55.93kg/m . kg/m2. She has been overweight for 10+ years, has tried and failed multiple previous diet attempts, and is now in the process of undergoing evaluation for surgical treatment of their obese. She is here today to initiate monthly physician supervised diet and exercise as part of their surgicalpreparatory regimen. 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 Her comfort foods include:sweets and savory Current Activity This patient currently does exercise for 20 per session, 3 times per week, including the following:walking. Current Eating Behaviors This patients demonstrates the following behaviors as they relate to her eating: structured She eats approximately 5-6 times per day. Her last meal/snack was at 6 PM. Plan: Diagnosis Managing: DM: continue medical management, DE and plan for metabolic weight loss surgery.stable. continue medical management, Diet & Exercise, and [...] and INTO THE LUNGS every 6 hours ifneeded for wheezing BLOOD GLUCOSE MONITORING SUPPL (TRUE [...] of childbearing age recommendation to postpone until 12- 18 month after surgery is provided 6.DM Is associated with obesity and weight loss is discussed as a treatment option for DM 7. Healthy lifestyle habits and their role in success after bariatric surgery discussed The patient was seen and a full chart review was performed.Clinical documentation is updated and completed. documented in this [facility]10-11-2023 History of Present illness Narrative* Rosana Travis, SILK WASHING MACHINE OPERATOR - MANAGER PROCESS IMPROVEMENT - 11/15/2022 10:50 AM EDT Images from the original note were not included. [facility] PULMONARY MEDICINE [address] [facility] [address] Dept: [phone] Dept Loc: [phone] Visit type: new Reason for Visit: New Patient (WLS Sx CLEARANCE/SLEEP EVAL) Assessment and Plan Morbid Obesity -Planning for weight loss surgery and will benefit. Asthma -Fairly stable on ICS/LABA but still uses rescue about once a day. -Consider step up to ICS/LABA/LAMA for better control. -Check PFTs Severe MARIAM -On CPAP. Unsure of settings as this was ordered by [place] provider. -Encouraged nightly compliance. Dyspnea -Exertional mostly but does have what she describes chest pain vs chest tightness with exertion which could be related to uncontrolled asthma. -Plan for asthma as above. She sees cardiology at [place]-no records available Follow up- 6 weeks after [...] includes Hysterectomy, knee surgery x 3 (right), christa, appy No history of NC, blood clots or anemia. No difficult intubations. She reports exertional dyspnea which resolves with rest. Dyspnea and chest pain limit her activities. She saw cardiology in [place] but I do not have these records. [...] and INTO THE LUNGS every 6 hours ifneeded for wheezing Blood Glucose Monitoring Suppl (True [...] Diagnosis Date Anxiety Asthma Back pain Depression VINCENT (dyspnea on exertion) GERD (gastroesophageal reflux disease) [...] (1.575 m) Wt (!) 309 lb 12.8 oz(141 kg) SpO2 93% BMI 56.66 kg/m Physical [...] visit. JESS Gibbs CNP documented in this [facility]10-11-2023 Instructions* Patient Instructions* Norma Encarnacion - 11/15/2022 10:50 AM EDT YOUR APPOINTMENT TODAY WAS WITH THE [facility] LUNG NODULE [facility], COPD CLINIC, PULMONARY AND SLEEP MEDICINE OFFICE. PLEASE CALL OUR OFFICE AT [phone] for our [place] office location or [phone] for our [place] location, IF YOU HAVE NOT RECEIVED YOUR [...] to make improvements. COVID-19 VACCINATION INFORMATION: PH. [phone] [email or web address] [facility] Central Scheduling [phone] [facility] Sleep Scheduling [phone] documented in this [facility]09-15-2023 History of Present illness Narrative* Aleisha Sandoval, RD - 10/20/2022 3:00 PM EDT [facility] BARIATRIC [facility] BARIATRIC NUTRITION ASSESSMENT SURGICAL WEIGHT LOSS [...] Diagnosis Date Anxiety Asthma Back pain Depression VINCENT (dyspnea on exertion) GERD (gastroesophageal reflux disease) History of kidney stones Joint pain, knee Joint pain, knee MGUS (monoclonal gammopathy of unknown significance) Morbid obesity, unspecified obesity type (HCC) Snoring Type 2 diabetes mellitus (HCC) Current Medications: has a current medication list which includes the following prescription(s): albuterol, true metrix meter, fenofibrate, hydroxyzine hcl, pantoprazole, potassium chloride, ra alcohol swabs, sertraline,symbicort, and trazodone. Weight History Patient has been [...] day and snacks between meals. She states dependingon her work schedule and what she's doing, can skip lunch. States she loves drinking water, but will also have pop and alcohol on occasion, as well as drinks coffee every morning. Patient was agreeable to working on meal frequency, increasing protein in diet, and eliminating caffeinated, carbonatedbeverages. EXERCISE/CURRENT ACTIVITY Exercise: ADL - home health [...] they must have someone in their home 24/ for the first week following surgery, or [...] protein requirements and better manage appetite Eliminate sugar-sweetened/caffeinated/carbonated beverages to promote hydration and continue to increase water Diagnoses: GERD Bariatric Nutrition Assessment completed by: Aleisha Sandoval MS, RDN, LD documented in this encounterSGuernsey Memorial [id number] Telephone encounter Note* Telephone Encounter - mAber Lomax MA - 09/20/2022 9:30 AM EDT Orders mailed [id number] Miscellaneous Notes* Telephone Encounter - Amber Lomax MA - 09/20/2022 9:30 AM EDT Orders mailed * Addendum Note - JESS Mata CNP - 09/19/2022 12:29 PM EDTAddended by: CHERRIE DELEON on: 09/19/2022 12:29 PM Modules accepted: Orders * Addendum Note - Aida Lees LPN - 09/15/2022 7:11 AM EDTAddended by: AIDA LEES on: 09/15/2022 07:11 AM Modules accepted: Orders * Telephone Encounter - Aida Lees LPN - 09/15/2022 7:09 AM EDT Orders pended, PULM added D/T MARIAM eval, Pre op check list scanned to iPointer, EGD order sent to ALS. * Telephone Encounter - Aida Lees LPN - 09/15/2022 7:06 AM EDT PLAN Encounter Diagnoses Name Primary? GERD without esophagitis Type 2 diabetes mellitus without complication, without long-term current use of insulin ([facility] ([facility]) Morbid obesity with BMI of 50.0-59.9, adult ([facility]) I have recommended proceeding with the evaluation and work-up for the primary procedure as outlinedbelow: PATIENT SUMMARY Sahra Bailey 42 y.o. female with Body mass index is 58.38 kg/m . SINGLE ANASTOMOSIS DUODENO-ILEOSTOMY W/SLEEVE (SINGLE STAGE) - aka JUANITA-S Procedure DM[x] HTN[] MARIAM[] GERD[x] HL[] OA[x] TOB[] Date of Surgery: TBD NOTES AD The patient would be a good candidate for 1 stage JUANITA-S, however would be ok with 2 stageif there is extensive scar tissue from previous [...] related to anesthesia, conversion from laparoscopic to andopen procedure, the need for reoperative or endoscopic therapy, the potential for prolonged mechanical ventilation, and . All questions were fully answered to the patient's satisfaction and theywish to proceed with surgical intervention. A total of over 45 minute visit was spent in face to face encounter, counseling the patient, discussing the surgical/perioperative plan, record review and documentation. The patient was seen and examined independently and relevant data including a full chart rreview was performed by myself. * Telephone Encounter - Davidson Vidal - 08/30/2022 1:54 PM EDT Initial New [facility] surgical patient Navigation & Financial Counseling Discussion Patient Communication: In office SURGEON: [] JDasia [x] AD [] MP [] TB [] [...] [] YES [] NO PRIMARY INSURANCE: Payor: [facility] [employer] MEDICAID / Plan: [place] [employer]ICA[place] ODM / [...] 1) Scheduled at new pt surgeon visit: Milieu Manager (JULIO CÉSAR) for a Nutrition Assessment (BNA) and Pre-operative Diet and Exercise (DE)appointment #1. [x] Patient reminded to arrive 15 [...] before and after surgery. documented in this encounterSGuernsey Memorial [id number] Note* Addendum Note - JESS Mata CNP - 09/19/2022 12:29 PM EDTAddended by: CHERRIE DELEON on: 09/19/2022 12:29 PM Modules accepted: Orders [id number] Note* Addendum Note - JESS Mata CNP - 09/19/2022 12:29 PM EDTAddended by: CHERRIE DELEON on: 09/19/2022 12:29 PM Modules accepted: Orders [id number] Note* Addendum Note - JESS Mata CNP - 09/19/2022 12:29 PM EDTAddended by: CHERRIE DELEON on: 09/19/2022 12:29 PM Modules accepted: Orders [id number] Note* Addendum Note - JESS Mata CNP - 09/19/2022 12:29 PM EDTAddended by: CHERRIE DELEON on: 09/19/2022 12:29 PM Modules accepted: Orders [place] [id number] Miscellaneous Notes* Addendum Note - JESS Mata CNP - 09/19/2022 12:29 PM EDTAddended by: CHERRIE DELEON on: 09/19/2022 12:29 PM Modules accepted: Orders * Addendum Note - Aida Lees LPN - 09/15/2022 7:11 AM EDTAddended by: AIDA LEES on: 09/15/2022 07:11 AM Modules accepted: Orders * Telephone Encounter - Aida Lees LPN - 09/15/2022 7:09 AM EDT Orders pended, PULM added D/T MARIAM eval, Pre op check list scanned to media, EGD order sent to ALS. * Telephone Encounter - Aida Lees LPN - 09/15/2022 7:06 AM EDT PLAN Encounter Diagnoses Name Primary? GERD without esophagitis Type 2 diabetes mellitus without complication, without long-term current use of insulin (CMS/HCC) (HCC) Morbid obesity with BMI of 50.0-59.9, adult (HCC) I have recommended proceeding with the evaluation and work-up for the primary procedure as outlinedbelow: PATIENT SUMMARY Sahra Bailey 42 y.o. female with Body mass index is 58.38 kg/m . SINGLE ANASTOMOSIS DUODENO-ILEOSTOMY W/SLEEVE (SINGLE STAGE) - aka JUANITA-S Procedure DM[x] HTN[] MARIAM[] GERD[x] HL[] OA[x] TOB[] Date of Surgery: TBD NOTES AD The patient would be a good candidate for 1 stage JUANITA-S, however would be ok with 2 stageif there is extensive scar tissue from previous [...] related to anesthesia, conversion from laparoscopic to andopen procedure, the need for reoperative or endoscopic therapy, the potential for prolonged mechanical ventilation, and . All questions were fully answered to the patient's satisfaction and theywish to proceed with surgical intervention. A total of over 45 minute visit was spent in face to face encounter, counseling the patient, discussing the surgical/perioperative plan, record review and documentation. The patient was seen and examined independently and relevant data including a full chart rreview was performed by myself. * Telephone Encounter - Taylortan Vidal - 08/30/2022 1:54 PM EDT Initial New [facility] surgical patient Navigation & Financial Counseling Discussion [...] [] YES [] NO PRIMARY INSURANCE: Payor: [facility] MEDICAID / Plan: [place] MEDICA[place] ODM / Product Type: Medicaid HMO [...] 1) Scheduled at new pt surgeon visit: Milieu Manager (RD) for a Nutrition Assessment (BNA) and Pre-operative Diet and Exercise (DE)appointment #1. [x] Patient reminded to arrive 15 [...] before and after surgery. documented in this encounterSGuernsey [facility] [id number] Note* Addendum Note - Aida Lees LPN - 09/15/2022 7:11 AM EDTAddended by: AIDA LEES on: 09/15/2022 07:11 AM Modules accepted: Orders [place] [id number] Note* Addendum Note - Aida Lees LPN - 09/15/2022 7:11 AM EDTAddended by: AIDA LEES on: 09/15/2022 07:11 AM Modules accepted: Orders [place] [id number] Note* Addendum Note - Aida Lees LPN - 09/15/2022 7:11 AM EDTAddended by: AIDA LEES on: 09/15/2022 07:11 AM Modules accepted: Orders [place] [id number] Note* Addendum Note - Aida Lees LPN - 09/15/2022 7:11 AM EDTAddended by: AIDA LEES on: 09/15/2022 07:11 AM Modules accepted: Orders [id number] Note* Addendum Note - Aida Lees LPN - 09/15/2022 7:11 AM EDTAddended by: AIDA LEES on: 09/15/2022 07:11 AM Modules accepted: Orders [id number] Miscellaneous Notes* Addendum Note - Aida Lees LPN - 09/15/2022 7:11 AM EDTAddended by: AIDA LEES on: 09/15/2022 07:11 AM Modules accepted: Orders * Telephone Encounter - Aida Lees LPN - 09/15/2022 7:09 AM EDT Orders pended, PULM added D/T MARIAM eval, Pre op check list scanned to lingle, EGD order sent to ALS. * Telephone Encounter - Aida Lees LPN - 09/15/2022 7:06 AM EDT PLAN Encounter Diagnoses Name Primary? GERD without esophagitis Type 2 diabetes mellitus without complication, without long-term current use of insulin ([facility] ([facility]) Morbid obesity with BMI of 50.0-59.9, adult ([facility]) I have recommended proceeding with the evaluation and work-up for the primary procedure as outlinedbelow: PATIENT SUMMARY Sahra Bailey 42 y.o. female with Body mass index is 58.38 kg/m . SINGLE ANASTOMOSIS DUODENO-ILEOSTOMY W/SLEEVE (SINGLE STAGE) - aka JUANITA-S Procedure DM[x] HTN[] MARIAM[] GERD[x] HL[] OA[x] TOB[] Date of Surgery: TBD NOTES AD The patient would be a good candidate for 1 stage JUANITA-S, however would be ok with 2 stageif there is extensive scar tissue from previous [...] CONSULTATIONS CLEARANCE / MANAGEMENT Psychology [x] Dr. Cerdaitioscar [x] Cardiology [x] [] not ordered Pulmonary [...] related to anesthesia, conversion from laparoscopic to andopen procedure, the need for reoperative or endoscopic therapy, the potential for prolonged mechanical ventilation, and . All questions were fully answered to the patient's satisfaction and theywish to proceed with surgical intervention. A total of over 45 minute visit was spent in face to face encounter, counseling the patient, discussing the surgical/perioperative plan, record review and documentation. The patient was seen and examined independently and relevant data including a full chart rreview was performed by myself. * Telephone Encounter - Davidson Vidal - 08/30/2022 1:54 PM EDT Initial [facility] surgical patient Navigation & Financial Counseling Discussion [...] 1) Scheduled at new pt surgeon visit: Milieu Manager (RD) for a Nutrition Assessment (BNA) and Pre-operative Diet and Exercise (DE)appointment #1. [x] Patient reminded to arrive 15 [...] before and after surgery. documented in this [facility]08-11-2023 Telephone encounter Note* Telephone Encounter - Aida Lees LPN - 09/15/2022 7:09 AM EDT Orders pended, PULM added D/T MARIAM eval, Pre op check list scanned to media, EGD order sent to ALS. [id number] Telephone encounter Note* Telephone Encounter - Aida Lees LPN - 09/15/2022 7:06 AM EDT PLAN Encounter Diagnoses Name Primary? GERD without esophagitis Type 2 diabetes mellitus without complication, without long-term current use of insulin (CMS/HCC) (HCC) Morbid obesity with BMI of 50.0-59.9, adult ([facility]) I have recommended proceeding with the evaluation and work-up for the primary procedure as outlinedbelow: PATIENT SUMMARY Sahra Bailey 42 y.o. female with Body mass index is 58.38 kg/m . SINGLE ANASTOMOSIS DUODENO-ILEOSTOMY W/SLEEVE (SINGLE STAGE) - aka JUANITA-S Procedure DM[x] HTN[] MARIAM[] GERD[x] HL[] OA[x] TOB[] Date of Surgery: TBD NOTES AD The patient would be a good candidate for 1 stage JUANITA-S, however would be ok with 2 stageif there is extensive scar tissue from previous [...] related to anesthesia, conversion from laparoscopic to andopen procedure, the need for reoperative or endoscopic therapy, the potential for prolonged mechanical ventilation, and . All questions were fully answered to the patient's satisfaction and theywish to proceed with surgical intervention. A total of over 45 minute visit was spent in face to face encounter, counseling the patient, discussing the surgical/perioperative plan, record review and documentation. The patient was seen and examined independently and relevant data including a full chart rreview was performed by myself. [facility]07-26-2023 NoteInitial New [facility] surgical patient Navigation & Financial Counseling Discussion [...] [] YES [] NO PRIMARY INSURANCE: Payor: [place] MEDICAID / Plan: [place]ICA[place] ODM / Product Type: Medicaid HMO [...] 1) Scheduled at new pt surgeon visit: Milieu Manager (RD) for a Nutrition Assessment (BNA) and [...] communications and lab/testing results before and after surgery.[facility]07-26-2023 Telephone encounter Note* Telephone Encounter - Taylortan Vidal - 08/30/2022 1:54 PM EDT Initial [facility] surgical patient Navigation & Financial Counseling Discussion [...] 1) Scheduled at new pt surgeon visit: Milieu Manager (RD) for a Nutrition Assessment (BNA) and Pre-operative Diet and Exercise (DE)appointment #1. [x] Patient reminded to arrive 15 [...] and lab/testing results before and after surgery. [facility] [id number] History of Present illness Narrative* Amber Lomax MA - 08/30/2022 1:00 PM EDT [facility] SURGICAL WEIGHT LOSS MANAGEMENT PROGRAM Rooming [...] home O2 Completed by: Amber Lomax MA * Jean Paul Bailey MD - 08/30/2022 1:00 PM EDT Images from the original note were not included. JEAN PAUL BAILEY MD , FACS, [facility] MINIMALLY INVASIVE & METABOLIC / BARIATRIC SURGERY [facility] BARIATRIC EVALUATION - HISTORY AND PHYSICAL 08/30/2022 PATIENT: Sahra Briceño DATE OF : 1980 HISTORY OF PRESENT ILLNESS Chief Complaint: Obesity and associated conditions. Sahra Briceño is a 42 y.o. female with obesity and associated conditions who presents to the [facility] for evaluation for metabolic/bariatric surgery. The patient stands Height: 5' 2 (157.5 cm) tall with a weight of Weight: (!) 319 lb 3.2 oz (145 kg) , and has a BMI of Body mass index is 58.38 kg/m .. The patient has failed multiple attempts at non-surgical weight loss, and is now seeking surgical intervention to promote permanent and consistentweight loss. The patient suffers from several co-morbidities [...] Diagnosis Date Anxiety Asthma Back pain Depression VINCENT (dyspnea on exertion) GERD (gastroesophageal reflux disease) [...] patient is ideally suited for SINGLE ANASTOMOSIS DUODENO- ILEOSTOMY W/ SLEEVE (SINGLE STAGE) - aka JUANITA-S. [...] GERD. And we discussed the need for post- operative visit compliance, behavior modifications and dietary compliance, protein and vitamin supplementation, as well as routine scheduled and dedicated exercise. We discussed the potential weight loss benefit, resolution of co- morbid conditions, as well as the possibility of insufficient weight loss or weight gain after 2 years post-operative time. Upon completion of all required pre-operative testing we will submit for insurance pre-authorization. PLAN Encounter Diagnoses Name Primary? GERD without esophagitis Type 2 diabetes mellitus without complication, without long-term current use of insulin ([facility] ([facility]) Morbid obesity with BMI of 50.0-59.9, adult ([facility]) I have recommended proceeding with the evaluation and work-up for the primary procedure as outlinedbelow: PATIENT SUMMARY Sahra Bailey 42 y.o. female with Body mass index is 58.38 kg/m . SINGLE ANASTOMOSIS DUODENO-ILEOSTOMY W/SLEEVE (SINGLE STAGE) - aka JUANITA-S Procedure DM[x] HTN[] MARIAM[] GERD[x] HL[] OA[x] TOB[] Date of Surgery: TBD NOTES AD The patient would be a good candidate for 1 stage JUANITA-S, however would be ok with 2 stageif there is extensive scar tissue from previous [...] CONSULTATIONS CLEARANCE / MANAGEMENT Psychology [x] Dr. Cerdaitioscar [x] Cardiology [x] [] not ordered Pulmonary [...] related to anesthesia, conversion from laparoscopic to andopen procedure, the need for reoperative or endoscopic therapy, the potential for prolonged mechanical ventilation, and . All questions were fully answered to the patient's satisfaction and theywish to proceed with surgical intervention. A total of over 45 minute visit was spent in face to face encounter, counseling the patient, discussing the surgical/perioperative plan, record review and documentation. The patient was seen and examined independently and relevant data including a full chart rreview was performed by myself. PAUL BAILEY MD, [facility], [facility] Installation And Repair Technician - Weight Management [place] [facility] [employer] - Advanced GI MIS, Foregut and Bariatric Surgery Fellowship ---[place] [facility]--- Patient Care Team: Provider Not In System as PCP - General Jean Paul Bailey MD as Surgeon (General Surgery) documented in this [facility]04-13-[address] Alexander [facility] May 18, 2022 6:50pm Note Date/Time May 18, 2022 4:5 4pm [facility] Medical Records Department [address] [place] [id number] Emergency Department Summary 05/18/22 MR#: [id number] Acct: [id number] Name: SAHRA BRICEÑO Rep #:[id number] : 1980 42 From: Tito Alexander MD PCP: GEOVANY Smith Status:R EG ER Location: ED HPI History [...] or family history of DVT or PEs. [facility] Medical History Asthma Diabetes mellitus Home Medications [...] % (Auto) 60.7 Lymph % (Auto) 28.6 Motley % (Auto) 8.5 Eos % (Auto) 1.4 [...] (Auto) Neut % (Auto) Lymph % (Auto) Motley % (Auto) Eos % (Auto) Baso % [...] but there are some diffuse nonspecific changes. VA interval, QRS duration and QTc are within [...] 7 0RF Primary Care Provider: Jessica Kruger [facility] Referrals: Jessica Kruger [facility], [facility] [Primary Care Provider] - 3-5 Days Disposition Disposition: Home, Self Care What to do if you have Problems For any increased pain, shortness of breath, bleeding, nausea or vomiting, chestpain, or any unexpected problems, contact your Primary Care Provider. Call [facility] ([phone]) or report to the closest Emergency Room. Call 911 if necessary. 05/18/22 1850 <Electronically signed by Tito Alexander MD> Cosigner Signature (if applicable): CC: GEOVANY Kruger ~ Signed [facility] Work Phone: 1(907) 270-766008-02-2022 History of Present illness Narrative* Pako Appiah MD - 09/06/2021 9:09 AM EDT PATIENT NAME: Sahra Briceño. CLINIC NO: [id number]. ATTENDING PHYSICIAN: Pako Appiah MD. DATE OF [...] Abs Lymph 1.00 - 4.00 k/uL 1.83 Motley% % 9.1 Abs Motley <0.87 k/uL 0.53 Eosin% % 2.4 Abs [...] 161 IgM 40 - 230 mg/dL 151 [place] Free, Serum 3.3 - 19.4 mg/L 17.9 [...] significance (IgM lambda) with additional biclonal bands ([place]) on her SPEP. PLAN: -Consider follow-up SPEP [...] Cc: Dr. Fan Issa documented in this [facility]Ohio[facility] History of Present illness Narrative* Meghann Crum, RT(R) - 08/25/2021 9:00 AM EDT Radiology [...] 25, 2021 8:47 AM documented in this encounterOhio[facility]07-19-2022 History and physical note * Pako Appiah MD - 08/23/2021 2:05 PM EDT Hematology and Medical Oncology PATIENT NAME: Sahra Briceño. CLINIC NO: [id number]. ATTENDING PHYSICIAN: Pako Appiah MD. DATE OF [...] HISTORY OF Right Arthroscopic knee surgery x3- [facility] PAST SURGICAL HISTORY OF Right tumor [...] Abs Lymph 1.00 - 4.00 k/uL 1.83 Motley% % 9.1 Abs Motley <0.87 k/uL 0.53 Eosin% % 2.4 Abs [...] with more than 50% of the total [id number] time of the visit in counseling / coordination of care. We will discuss further evaluation if needed. Pako Appiah MD. ELECTRONICALLY SIGNED Cc: Dr. Rody Sarmiento [facility]* Diagnosis MGUS (monoclonal gammopathy of unknown significance)- Primary Monoclonal paraproteinemia documented in this encounter [facility] note* Diagnosis MGUS (monoclonal gammopathy of unknown significance) Monoclonal paraproteinemia documented in this encounter [facility] note* Diagnosis MGUS (monoclonal gammopathy of unknown significance)- Primary Monoclonal paraproteinemia documented in this encounter [facility] noteNo assessment information availableWBarney Children's Medical Center Work Phone: Evaluation note* Diagnosis Onset Date Resolution Status Angina pectoris acute VINCENT (dyspnea on exertion) [facility] Work Phone: Evaluation note* Diagnosis GERD without esophagitis Esophageal reflux Type 2 diabetes mellitus without complication, without long-term current use of insulin ([facility] ([facility]) Morbid obesity with BMI of 50.0-59.9, adult ([facility]) documented in this encounter [facility] note* Diagnosis GERD without esophagitis Esophageal reflux Type 2 diabetes mellitus without complication, without long-term current use of insulin ([facility] ([facility]) Morbid obesity with BMI of 50.0-59.9, adult ([facility]) documented in this encounter [facility] note* Diagnosis Encounter for screening for tobacco use- Primary GERD without esophagitis Esophageal reflux Type 2 diabetes mellitus without complication, without long-term current use of insulin ([facility] ([facility]) Morbid obesity with BMI of 50.0-59.9, adult ([facility]) [facility] Diagnosis Encounter for screening for tobacco use- Primary GERD without esophagitis Esophageal reflux Type 2 diabetes mellitus without complication, without long-term current use of insulin ([facility] ([facility]) Morbid obesity with BMI of 50.0-59.9, adult ([facility]) documented in this encounter [facility] note* Diagnosis Onset Date Resolution Status Angina pectoris acute VINCENT (dyspnea on exertion) [facility] (dyspnea on exertion) [facility] MARIAM (obstructive sleep apnea) acute [facility] Work Phone: Evaluation note* Diagnosis Gastroesophageal reflux disease, unspecified whether esophagitis present- Primary Gastro-esophageal reflux disease without esophagitis documented in this encounter [facility] note* Diagnosis Onset Date Resolution Status VINCENT (dyspnea on exertion) [facility] MARIAM (obstructive sleep apnea) acute MARIAM (obstructive sleep apnea) acute Asthma chronic Obesity chronic [facility] Work Phone: Evaluation note* Diagnosis Asthma, unspecified asthma severity, unspecified whether complicated, unspecified whether persistent- Primary Morbid obesity with BMI of 50.0-59.9, adult ([facility]) Gastro-esophageal reflux disease without esophagitis documented in this encounter [facility] [employer] [facility] note* Diagnosis Type 2 diabetes mellitus without complication, without long-term current use of insulin ([facility] ([facility])- Primary BMI 50.0-59.9, adult ([facility]) Class 3 severe obesity with serious comorbidity and body mass index (BMI) of 50.0 to 59.9 in adult, unspecified obesity type ([facility]) Gastro-esophageal reflux disease without esophagitis documented in this encounter [facility] note* Diagnosis Gastro-esophageal reflux disease without esophagitis documented in this encounter [facility]* Diagnosis Encounter for screening for tobacco use- Primary GERD without esophagitis Esophageal reflux Type 2 diabetes mellitus without complication, without long-term current use of insulin ([facility] ([facility]) Morbid obesity with BMI of 50.0-59.9, adult ([facility]) documented in this encounter [facility] [employer] [facility] note* Diagnosis Type 2 diabetes mellitus without complication, without long-term current use of insulin ([facility] ([facility])- Primary BMI 50.0-59.9, adult ([facility]) Class 3 severe obesity with serious comorbidity and body mass index (BMI) of 50.0 to 59.9 in adult, unspecified obesity type (HCC) [facility]* Diagnosis Onset Date Resolution Status Admit Date Abnormal stress test acute Sept emb2024 8:35am Chest pain acute October 8:35am VINCENT (dyspnea on exertion) acute October 28, 2024 8:35am Fatigue acute October 8:35am Palpitations acute October 282024 8:35am [facility] Work Phone: Hospital Discharge instructions Additional Instructions Please ensure you ice and elevate, use Jas wrap as needed.[facility] Work Phone: Progress note Author Alessia Mckeon [facility] Note Date/Time October 28, 2024 9:26am [facility] [address] [place] [address] OFFICE VISIT Date of Service: 10/28/24 MR#: [id number] Acct: [id number] Name: SAHRA BRICEÑO Rep #: [id number] : 1980 Provider: GEOVANY Mckeon Age/Sex: 44/F Location: [facility] Status: Signed HPI HPI History of Present Illness Details: This is a 44-year-old female who presents here today for cardiovascular follow up. Patient has not been seen in our office since September 2022. She presented to [facility] on 05/18/2022 for increased shortness of breath and chest discomfort. PCP did start her on oral Lasix. Patient was concerned because she did not have much cardiac output. Ultrasound for DVT was negative. She does have a strong family history of coronary artery disease. She does havea history of hypertension, asthma, glucose intolerance. While in the emergency room she did undergo a CTA because she did have an elevated D-dimer. This did not demonstrate any PE or dissection. Troponin was negative and not measurable. BNP was 6.5. On an outpatient basis she underwent a stress test, this was a treadmill tolerance test-which did not have nuclear imaging. Patient had an inability to reach maximum predicted heart rate. She is only able to walk 1 minute and 11 seconds for a total of 4.6 METS. She did have chest discomfort. Her functional capacity was significantly decreased for age. She did undergo a cardiac cath, this was normal. She underwent a stress test at [facility] on 10/22/2024 which demonstrated abnormal myocardial perfusion study, resting images show anterior and anteroseptal wall perfusion defect. Stress images show significant worsening of anterior and anteroseptal wall perfusion defect, this is concerningfor anterior and anteroseptal wall ischemia. From a cardiac standpoint, the patient is doing well. She does acknowledge occasional palpitations-she describes this as a fast heart beat. She does acknowledge chest pain with exertion and at rest. She states this radiates to her left arm, back, and into her neck. This can be brief, and other times it canlast for a while. She does have SOB with exertion and at rest. She states that she does use her inhaler daily- this does not help. She denies Orthopnea, and PND. She does have MARIAM-but is untreated. She does not have bleeding issues; no blood in urine, stool, or nosebleeds. She does acknowledge fatigue. She denies myalgias, or claudication. She does acknowledge BLE edema, and sudden weight gain over a week. She does acknowledge occasional lightheadedness with quick positional changes. She denies dizziness, syncopal or near syncopal episodes, and headaches. Intake Vital Signs 08/02/24 08:16 10/28/24 07:01 Height 5 ft 2 in 5 ft 2 in Weight: 319 lb BMI 58.3 BP 129/79 H Blood Pressure Location Lt brachial Position Sitting Respiration 20 H Pulse 83 Pulse Source Monitor Pulse Oximetry (%) 96 Intake Visit Reasons: OVERDUE FOR OV/LAST SEEN 2022 Gse Mechanic Required: No Is patient in pain?: No Allergies cephalexin Allergy (Verified 10/28/24 09:06) Other ciprofloxacin (From Cipro) Allergy (Verified 10/28/24 09:06) Other lisinopril Allergy (Verified 10/28/24 09:06) Other methylprednisolone (From Medrol) Allergy (Verified 10/28/24 09:06) Other nitrofurantoin (From Macrobid) Allergy (Verified 10/28/24 09:06) Other Penicillins (PCN) Allergy (Verified 10/28/24 09:06) Rash sulfamethoxazole (From Bactrim) Allergy (Verified 10/28/24 09:06) Other trimethoprim (From Bactrim) Allergy (Verified 10/28/24 09:06) Other diphenhydramine (From Benadryl Allergy) Adverse Reaction (Intermediate, Wixfovzs42/23/25 09:06) Anaphylaxis Medications ?Medication ?Instructions ?Recorded ?Confirmed ?Type budesonide-formoterol HFA 160 2 puff inhalation BID 10/28/24 History mcg-4.5 mcg/actuation aerosol inhaler (Symbicort) albuterol sulfate 90 mcg/actuation 1 puff inhalation Q 6H PRN 06/12/22 10/28/24 History aerosol inhaler (Ventolin HFA) shortness of breath or wheezing sertraline 100 mg tablet 100 mg PO BID 06/12/2210/28 History naproxen 500 mg tablet 500 mg PO BID PRN #20 tabs 0 08/02/24 10/28/24 Rx fenofibrate nanocrystallized 145 145 mg PO QDAY 10/28/24 History mg tablet metformin 500 mg tablet 500 mg PO BID 10/28/2410/28 History metoprolol tartrate 50 mg tablet 50 mg PO QDAY Cardiac CTA #1 TAB 10/28/24 10/28/24 Rx pantoprazole 40 mg tablet,delayed 40 mg PO QDAY 10/28/24 History release potassium chloride 20 mEq 20 meq PO QDAY 10/28/2410/07 History tablet,extended release (K-Tab) Have you fallen in the past year?: Yes PFSH Medical History Depression COVID-19 Asthma Diabetes mellitus Surgical History H/O: hysterectomy Hx laparoscopic cholecystectomy Family History Father , age 63 Heart disease MARIAM (obstructive sleep apnea) Sister MARIAM (obstructive sleep apnea) Social History Smoking Status: Never smoker substance use type: does not use ROS Const Const: Positive for fatigue; Negative for weakness, headache(s) or frequent falls Eyes Eyes: Negative for blurry vision ENT ENT: Negative for headache(s), dizziness or Nosebleed/epistaxis Cardio Chest Pain: Yes Frequency: daily Onset: at rest and exercise Location: left chest and other (radiates to left shoulder, back and neck. ) Duration: minutes and brief Palpitations: Yes Edema: Bilateral Muscle aches with walking: None Resp Respiratory: Positive for SOB with activity and SOB at rest; Negative for SOB orthopnea\SOB lying down GI GI: Negative nausea, vomiting, heartburn, bright, red blood in stools or black,tarry stools : Negative for hematuria Neuro Neuro: Positive for lightheadedness; Negative for dizziness, near syncope, syncope, frequent falls, headache(s), weakness or blurry vision Endo Endo: Positive for fatigue Cardiology Exam Const Appearance: cooperative, no acute distress and well developed Nutritional Appearance: obese Orientation: alert, awake and oriented x3 Head Head: normal to inspection, normocephalic and atraumatic Ears: hearing grossly normal bilaterally Nose: external nose normal Face and Sinus: face symmetric Eyes General: appearance normal, both eyes and all related structures Eyelids: eyelids normal Conjunctivae: conjunctivae normal Pupils: PERRL EOM: EOM intact bilaterally Neck Neck: normal visual inspection, no lymphadenopathy and no JVD Carotids: Negative bruit Neck Mass: Negative Neck mass Chest Chest inspection: normal inspection of the chest and symmetric chest movement Auscultation: Bilateral: Clear to Auscultation Cardio Palpation: normal PMI Rate: regular rate Rhythm: regular rhythm Heart sounds: S1 normal and S2 normal; Negative rub, gallop or murmur GI GI: normal to inspection, soft and obese; Negative tender Neuro General: patient alert, patient awake, patient oriented x3, CN's II-XI intact bilaterally and moves all extremities Skin Skin: no rashes or lesions noted Extremities Pulses: Normal: Right Posterior Tibial Pulse, Left Posterior Tibial Pulse, RightRadial Pulse and Left Radial Pulse Lower Extremity Edema: None: Bilateral Psych Psychological: normal affect Supplemental Info Supplemental Information Stress Test Report Date: 06/02/2022 ? Procedure: Exercise tolerance test ? Indications: Chest pain, dyspnea ? Consent: Per the patient ? Procedure: ? The patient exercised on a Usman protocol for 1 minute and 11 seconds achieving a peak heart rate of 144 bpm (81% predicted maximal heart rate) with a peak blood pressure 190/72 mmHg and a peak MET capacity of approximately 4.6 MET's. ? The baseline ECG demonstrated normal sinus rhythm.? The peak exercise ECG demonstrated no significant ischemic changes. ? [There were no cardiac dysrhythmias pretest, during exercise, or recovery]. ? The functional capacity was considered significantly decreased for age. ? The patient had chest pressure and shortness of breath with exercise. The examination was discontinued secondary to severe shortness of breath, chest pressure. ? Impression: ? 1.? Inability to reach 85% of maximal age-predicted heart rate decreases the sensitivity of this test 2.? Stress test is positive for exercise-induced chest pain. 3.? Stress test test is negative for exercise-induced EKG changes of ischemia.? 4.? Functional capacity is significantly decreased for age Heart cath 2022: Normal coronary arteries RECOMMENDATIONS Medical therapy DESCRIPTION [...] multiple views using a 5 Fr. 4.0 [place] catheter. Left Coronary Artery selective angiography was [...] Angiographically normal RIGHT CORONARY ARTERY: Angiographically normal Labs: LDL Cholesterol, (0-130) 65 mg/dL HDL Cholesterol, (40-) 46 mg/dL Cholesterol, (<=200) 115 mg/dL Triglycerides, (-199) 99 mg/dL Diagnostics: Electrocardiogram Echocardiogram Stress Test Cardiac Catheterization Chest X-Ray Chest CTA Venous Doppler Study Past Visits: Cardiology Visit Today Assessment and Plan Assessment and Plan (1) Abnormal stress test: Status: Acute Plan: She underwent a stress test at [facility] on 10/22/2024 which demonstrated abnormal myocardial perfusion study, resting images show anterior and anteroseptal wall perfusion defect. Stress images show significant worsening of anterior and anteroseptal wall perfusion defect, this is concerningfor anterior and anteroseptal wall ischemia. Her most recent cardiac catheterization from 06/30/2022 demonstrated normal coronary arteries. Did review recent stress test with Dr. Seth, he recommends a CT angiogram, and calcium score to further assess this and determine if patient should be on lipidlowering medication. Depending on results, further recommendations will be made. (2) VINCENT (dyspnea on exertion): Status: Acute Plan: Patient does acknowledge dyspnea on exertion. Would like to obtain an echocardiogram to assess patient's left ventricular systolic function, and valves; will also obtain lab work to further assess for any fluid overload. Depending on results, further recommendations will be made. (3) Chest pain: Status: Acute Plan: Patient does acknowledge chest pain. Her EKG from today demonstrates normal sinus rhythm with heart rate of 92 bpm. Her most recent cardiac catheterization from 06/30/2022 demonstrated normal coronary arteries. Her stress test from 10/22/2024 from an outside hospital demonstrated abnormal myocardial perfusion study, resting images show anterior and anteroseptal wall perfusion defect. Stress images show significant worsening of anterior and anteroseptal wall perfusion defect, this is concerning for anterior and anteroseptal wall ischemia. Did review recent stress test with Dr. Seth, he recommends a CT angiogram, and calcium score to further assess patient's chest pain. (4) Palpitations: Status: Acute Plan: Patient acknowledges palpitations. She describes this as a fast/racing sensation. Would like to obtain a 48-hour Holter monitor to further assess this. Depending on results, further recommendations will be made. (5) Fatigue: Status: Acute Plan: Patient acknowledges fatigue. Would like to obtain lab work to further assess this. Depending on results, further recommendations will be made. Orders: Orders 12 Lead EKG performed by [facility] Today I20.9 - Angina pectoris, unspecified Cardiac Angiography CTA Today R07.9 - Chest pain, unspecified Cardiac Calcium Scoring Today R07.9 - Chest pain, unspecified Echo Complete Today R06.09 - Other forms of dyspnea, R07.9 - Chest pain, unspecified Basic Metabolic Profile (BMP) Today R06.09 - Other forms of dyspnea CBC W/Diff, Automated Today R06.09 - Other forms of dyspnea Thyroid Stim Hormone (TSH) Today R53.83 - Other fatigue Pro- Brain NATRIURETIC PEPTIDE Today R06.09 - Other forms of dyspnea Liver Profile Today E66.01 - Morbid (severe) obesity due to excess calories, Z68.43 - Body mass index [BMI] 50.0-59.9, adult Lipid Profile Today E66.9 - Obesity, unspecified Cardiac Holter Monitor, 48 Hrs Today R00.2 - Palpitations Medications: New metoprolol tartrate Take one tablet one hour prior to procedure 50 mg PO QDAY 1 TAB 0RF Cardiac CTA Discontinued fenofibrate Discontinued Reason: Duplicate Order 145 mg PO QDAY Plan Plan Details Additional Comments: Patient will follow-up in 6-8 weeks, or sooner if needed. Thank you for allowing me to participate in the care of your patient. Please do not hesitate to call if any issues arise. This note was generated using a voice recognition system and there may be incorrect words, spelling, or punctuation that were not noted when reviewing the office note prior to saving. Portions of this documentation were copied and pasted from previous office visit notes to provide cohesive continuity of the history. The note has been reviewed, edited, and updated, as necessary. Follow Up: 6-8 weeks ([facility]AMEL [employer]UTTER [employer]/PA) Coding Level of Care Code Off vis,est,level 4 Diagnoses Abnormal stress test R94.39 VINCENT (dyspnea on exertion) R06.09 Chest pain R07.9 Palpitations R00.2 Fatigue R53.83 Coding Level of Care Code Off vis,est,level 4 Diagnoses Abnormal stress test R94.39 VINCENT (dyspnea on exertion) R06.09 Chest pain R07.9 Palpitations R00.2 Fatigue R53.83 Clinical Quality Measures Falls Risk Screening/Assistive Devices Have you fallen in the past year?: Yes 10/28/24 5122 <Electronically signed by Alessia Mckeon NP [facility] [employer]-[facility]> Date _ Alessia Mckeon NP [facility] [employer] [employer]-C Cosigner Signature: Date (if applicable) CC: ~ [employer] Work Phone: [email or web address] for referral (narrative)* Diagnostic Procedure Only (Routine) - Authorized Specialty Diagnoses / Procedures Referred By Contac t Referred To Contact XR IMAGING Diagnoses MGUS (monoclonal gammopathy of unknown significance) Procedures XR BONE SURVEY ROUTINE RADIOLOGIC EXAMINATION OSSEOUS SURVEY COMPL Pako Appiah MD [address] [place] [address] Xr Imaging Referral ID Status Reason Start Date Expiration Date Visits Requested Visits Authorized [id number] Authorized Auto-Generat ed Referral 08/23/2021 09/22/2022 1 1 [facility] for referral (narrative)* Diagnostic Procedure Only (Routine) - Closed Specialty Diagnoses / Procedures [facility] Referred To Contact XR IMAGING Diagnoses MGUS (monoclonal gammopathy of unknown significance) Procedures XR BONE SURVEY ROUTINE RADIOLOGIC EXAMINATION OSSEOUS SURVEY COMPL Pako Appiah MD [address] [place] [address] Xr Imaging Referral ID Status Reason Start Date Expiration Date V isits Requested Visits Authorized [id number] Closed Auto-Generate d Referral 08/23/2021 09/22/2022 1 1 [facility] for referral (narrative)* Consultation (Routine) - Pending Review Specialty Diagnoses / Procedures [facility] Referred To Contact Pulmonary Disease / Pulmonology Diagnoses Type 2 diabetes mellitus without complication, without long-term current use of insulin (CMS/HCC) (HCC) Morbid obesity with BMI of 50.0-59.9, adult (HCC) Procedures VA OFFICE/OUTPATIENT NEW HIGH MDM 60-74 MINUTES Cherrie Deleon, SILK WASHING MACHINE OPERATOR - MANAGER PROCESS IMPROVEMENT [address] [place] [address] [facility] [address] [place] [address] Referral ID Status Reason Start Date Expiration Date Visits Requested Visits Authorized [id number] Pending Review Specialty Services Required 09/19/2022 09/19/2023 1 1 * Consultation (Elective) - Pending Review Specialty Diagnoses / Procedures Referred By Contac t Referred To Contact Cardiology Diagnoses Type 2 diabetes mellitus without complication, without long-term current use of insulin (CMS/HCC) (HCC) Morbid obesity with BMI of 50.0-59.9, adult (HCC) Procedures VA OFFICE/OUTPATIENT NEW HIGH MDM 60-74 MINUTES Cherrie Deleon APRN - MANAGER PROCESS IMPROVEMENT [address] [place] [address] [facility] [address] [place] [address] Referral ID Status Reason Start Date Expiration Date Visits Requested Visits Authorized [id number] Pending Review Specialty Services Required 09/19/2022 09/19/[address] [facility] for referral (narrative)* Consultation (Routine) - Pending Review Specialty Diagnoses / Procedures Referred By Contac t Referred To Contact Pulmonary Disease / Pulmonology Diagnoses Type 2 diabetes mellitus without complication, without long-term current use of insulin (CMS/HCC) (HCC) Morbid obesity with BMI of 50.0-59.9, adult (HCC) Procedures VA OFFICE/OUTPATIENT NEW HIGH MDM 60-74 MINUTES Cherrie Deleon SILK WASHING MACHINE OPERATOR - MANAGER PROCESS IMPROVEMENT [address] [place] [address] [facility] [address] [place] [address] Referral ID Status Reason Start Date Expiration Date Visits Requested Visits Authorized [id number] Pending Review Specialty Services Required 09/19/2022 09/19/2023 1 1 * Consultation (Elective) - Pending Review Specialty Diagnoses / Procedures Referred By Contac t Referred To Contact Cardiology Diagnoses Type 2 diabetes mellitus without complication, without long-term current use of insulin ([facility]/HCC) (HCC) Morbid obesity with BMI of 50.0-59.9, adult ([facility]) Procedures VA OFFICE/OUTPATIENT NEW HIGH MDM 60-74 MINUTES Cherrie Deleon APRN - MANAGER PROCESS IMPROVEMENT [address] [facility] [address] [place] [address] [facility] [address] [place] [address] Referral ID Status Reason Start Date Expiration Date Visits Requested Visits Authorized [id number] Pending Review Specialty Services Required 09/19/2022 09/19/2023 1 1 [facility] Consultation (Routine) - Authorized Specialty Diagnoses / Procedures Referred By Candida t Referred To Contact Pulmonology Diagnoses Asthma, unspecified asthma severity, unspecified whether complicated, unspecified whether persistent Procedures Complete PFT pre and post bronchodilator with FENO Rosana Travis APRN - MANAGER PROCESS IMPROVEMENT [address] [place] [address] Referral ID Status Reason Start Date Expiration Date V isits Requested Visits Authorized [id number] Authorized 11/15/2022 05/14/2023 1 1 [facility] (narrative)No reason for referral information availableWBarney Children[facility] Work Phone: Reason for visit Narrative* Diagnostic Procedure Only (Routine) - Closed Specialty Diagnoses / Procedures Referred By Candida t Referred To Contact XR IMAGING Diagnoses MGUS (monoclonal gammopathy of unknown significance) Procedures XR BONE SURVEY ROUTINE RADIOLOGIC EXAMINATION OSSEOUS SURVEY Pako Yi MD [address] [place] [address] Xr Imaging Referral ID Status Reason Start Date Expiration Date V isits Requested Visits Authorized [id number] Closed Auto-Generate d Referral 08/23/2021 09/22/2022 1 1 [facility] for visit Narrative* Consultation (Routine) - Authorized Specialty Diagnoses / Procedures Referred By Candida packer Referred To Contact Pulmonology Diagnoses Asthma, unspecified asthma severity, unspecified whether complicated, unspecified whether persistent Procedures Complete PFT pre and post bronchodilator with FENO Rosana Travis, SILK WASHING MACHINE OPERATOR - MANAGER PROCESS IMPROVEMENT [address] [place] [address] Referral ID Status Reason Start Date Expiration Date V isits Requested Visits Authorized [id number] Authorized 11/15/2022 05/14/2023 1 1 [facility] Summary Purpose Family History No Family History Records Found Relationship Condition Age at Onset Recorded Date/T [...] 30s. Brother (s) Status:Active Comments:0. Father Status:Active Comments:. 1956 ; HTN Mother Status:Active Comments:b. 1954 ; DM2 Sister (s) Status:Active Comments:5. 1 wi th breast CA in her 30s. Brother (s) Status:Active Comments:0. Father Status:Active Comments:b. 1956 ; HTN Mother Status:Active Comments:. 1954 ; DM2 Sister (s) Status:Active Comments:5. 1 wi th breast CA in her 30s. Brother (s) Status:Active Comments:0. Father Status:Active Comments:b. 1956 ; HTN Mother Status:Active Comments:. 1954 ; DM2 Sister (s) Status:Active Comments:5. [...] contributory Status:Active non contributory Status:Active Advance Directives No Advanced Directives Records Found Advance Directive Response Recorded Date/ Time Living Will No November 23 10:10pm Power of Geothermal Field Technician No November 23, 2020 10:10pm Advance Directive Response Recorded Date/ Time Living Will No May 18, 2022 4:41pm Power of Geothermal Field Technician No May 18 4:41pm Advance Directive Response Recorded Date/ Time Advance Directives on File No June 062022 7:28am Advance Directives No June 30 3 7:04am Living Will No June 30, 2022 7 :04am Power of Geothermal Field Technician No June 30, 2022 7:04am Advance Directive Response Recorded Date/ Time Advance Directives on File No June 062022 7:28am Advance Directives No June 30 7:04am Living Will No September 30 3:05pm Power of Geothermal Field Technician No September 30 023 3:05pm Advance Directive Response Recorded Date/ Time Advance Directives No June 30 7:04am Living Will No September 30 3:05pm Power of Geothermal Field Technician No September 30 023 3:05pm Advance Directive Response Recorded Date/ Time Advance Directives No June 30 3 6:04am Living Will No September 30 3 2:05pm Power of Geothermal Field Technician No September 30 023 2:05pm Advance Directive Response Recorded Date/ Time Do you have a Healthcare Power of Geothermal Field Technician? No August 02, 2024 8:16am Advance Directives No June 30 3 7:04am Chief Complaint and Reason for Visit Chief Complaint SWELLING SOB, chest pain, swelling Chief Complaint SWELLING SOB, chest pain, swelling SOB Shortness of breath Chief Complaint SWELLING SOB, chest pain, swelling Shortness of breath SOB Shortness of breath ABN STRESS/CP/SOB//PER DELIVERY REP AND MMM E-ORDER Reason for Visit Angina pectoris VINCENT (dyspnea on exertion) Chief Complaint SWELLING SOB, chest pain, swelling Shortness of breath SOB Shortness of breath ABN STRESS/CP/SOB//PER DELIVERY REP AND MMM E-ORDER ABN STRESS SOB CHEST PAIN ABN STRESS SOB CHEST PAIN Reason for Visit Angina pectoris VINCENT (dyspnea on exertion) Chief Complaint SOB Shortness of breath ABN STRESS/CP/SOB//PER DELIVERY REP AND MMM E-ORDER ABN STRESS SOB CHEST PAIN ABN STRESS SOB CHEST PAIN 3 M FU R KNEE PAIN Reason for Visit Angina pectoris VINCENT (dyspnea on exertion) VINCENT (dyspnea on exertion) MARIAM (obstructive sleep apnea) Chief Complaint 3 M FU R KNEE PAIN VINCENT, MARIAM Sleep problems MARIAM; AUTO CPAP *DEVICE TAGGED Reason for Visit VINCENT (dyspnea on exer tion) MARIAM (obstructive sleep apnea) MARIAM (obstructive sleep apnea) Asthma Obesity Chief Complaint 3 M FU R KNEE PAIN VINCENT, MARIAM Sleep problems MARIAM; AUTO CPAP *DEVICE TAGGED FULL FACE MASK TRIAL XRAY Reason for Visit VINCENT (dyspnea on exer tion) MARIAM (obstructive sleep apnea) MARIAM (obstructive sleep apnea) Asthma Obesity Chief Complaint Admit Date r shoulder pain August 02, 2024 8:15 am Chief Complaint Admit Date r shoulder pain August 02, 2024 8:15 am OVERDUE FOR OV/LAST SEEN 2022October 28, 2024 8:35am EORDERS October 28, 2024 9:32am Reason for Visit Admit Date Abnormal stress test October 28 8:35am Chest pain October 28, 2024 8:35am VINCENT (dyspnea on exertion) October 8:35am Fatigue October 28, 2024 8:35am Palpitations October 28, 2024 8:35am Chief Complaint Admit Date r shoulder pain August 02, 2024 8:15 am OVERDUE FOR OV/LAST SEEN 2022October 28, 2024 8:35am EORDERS October 28, 2024 9:32am chest pain, abnormal stress test November 05, 2024 12:49pm chest pain, abnormal stress test November 05, 2024 6:40pm Additional Source Comments INFORMATION SOURCE (unrecogn ized section and content) DATE CREATED AUTHOR 03/12/2021 [facility] DATE CREATED AUTHOR AUTHOR'S ORGANIZ ATION 07/14/2021 [facility] dical Specialist DATE CREATED AUTHOR AUTHOR'S ORGANIZ ATION 06/19/2022 [facility] ([place]) DATE CREATED AUTHOR AUTHOR'S ORGANIZ ATION 12/17/2022 [facility] DATE CREATED AUTHOR AUTHOR'S ORGANIZ ATION 02/18/2023 [facility] DATE CREATED AUTHOR AUTHOR'S ORGANIZ ATION 03/01/2024 [facility] re [facility] DATE CREATED AUTHOR AUTHOR'S ORGANIZ ATION 10/23/2024 [facility] DATE CREATED AUTHOR AUTHOR'S ORGANIZ ATION 12/16/2024 [facility] Source Comments (unrecognize d section and content) In the event this informatio n is protected by the Federal Confidentiality of Alcohol and Drug Abuse Patient Records regulations: The Federal rules restrict any use of the information to criminally investigate or prosecute any alcohol or drug abuse patient.[facility] the event this information is protected by the Federal Confidentiality of Alcohol and Drug Abuse Patient Records regulations: The Federal rules restrict any use of the information to criminally investigate or prosecute any alcohol or drug abuse patient.[facility] the event this information is protected by the Federal Confidentiality of Alcohol and Drug Abuse Patient Records regulations: The Federal rules restrict any use of the information to criminally investigate or prosecute any alcohol or drug abuse patient.[facility] Reason for Visit (unrecogniz ed section and content) Reason Comments New Patient Evaluation Reason Comments Established Patient Reason Comments Surgical Consult New Surg Specialty Diagnoses / Procedures Referred By Contac t Referred To Contact Bariatrics Diagnoses Abnormal weight gain Body mass index (BMI) 50.0-59.9, adult (HCC) Procedures Eval & Treat Jessica Kruger [id number] [place] [address] [facility] [address] [place] [address] Referral ID Status Reason Start Date Expiration Date V isits Requested Visits Authorized [id number] Pending Review 08/29/2022 08/29/2023 1 1 Reason Onset Date Comments Financial File 08/30/2022 Financial File 2 023 Surgery Scheduling 08/30/2022 Initial sched uling-orders placed Reason Onset Date Comments Financial File 08/30/2022 Financial File 2 023 Surgery Scheduling 08/30/2022 Initial sched uling-orders placed Reason Comments Nutrition Counseling BNA initial Reason Comments New Patient WLS Sx CLEARANCESLEE P EVAL Specialty Diagnoses / Procedures Referred By Contac t Referred To Contact Pulmonary Disease / Pulmonology Diagnoses Type 2 diabetes mellitus without complication, without long-term current use of insulin ([facility]) (HCC) Morbid obesity with BMI of 50.0-59.9, adult (HCC) Procedures VA OFFICE/OUTPATIENT NEW HIGH MDM 60-74 MINUTES Cherrie Deleon, SILK WASHING MACHINE OPERATOR - MANAGER PROCESS IMPROVEMENT [address] [place] [address] [facility] [address] [place] [address] Referral ID Status Reason Start Date Expiration Date Visits Requested Visits Authorized [id number] Pending Review Specialty Services Required 09/19/2022 09/19/2023 1 1 Reason Comments Weight Loss D/E 1 of 6 Specialty Diagnoses / Procedures Referred By Candida t Referred To Contact Diagnoses Gastro-esophageal reflux disease without esophagitis Gastro-esophageal reflux disease without esophagitis [K21.9] Procedures [facility] EGD TRANSORAL BIOPSY SINGLE/MULTIPLE EGD WITH BIOPSY Jean Paul Bailey MD [address] [place] [address] [facility] [address] [place] [address] Referral ID Status Reason Start Date Expiration Date Visits Re quested Visits Authorized [id number] 1 1 Reason Comments Weight Loss D/E 2 of 6 Care Teams (unrecognized sec tion and content) Second Officer Relationship Specialty Start Date End Date Fan Issa MD PCP - General Family Practice 12/16/15 Second Officer Relationship Specialty Start Date End Date Fan Issa MD PCP - General Family Practice 12/16/15 Second Officer Relationship Specialty Start Date End Date Fan Issa MD PCP - General Family Practice 12/16/15 Team Status: Active Member Role Status Dates Dr. Luis Briones MD Family Provider Active Jessica Kruger [employer], [employer]-C Primary Care Provider Acti ve Team Status: Active Member Role Status Dates Jessica Kruger NP, [employer] Primary Care Provider Acti ve Dr. Fan Robles MD Attending Provider Active Team Status: Active Member Role Status Dates Jessica Kruger [employer], [employer]-C Primary Care Provider, Attending Provider, Referring Provider Active Team Status: Inactive Member Role Status Dates Jessica Kruger [employer], [employer]-C Primary Care Provider Acti ve Dr. Tito Alexander MD Emergency Provider Active Team Status: Active Member Role Status Dates Jessica Kruger [employer], [employer]-C Primary Care Provider, Ref erring Provider Active Dr. Fan Robles MD Attending Provider Active Team Status: Active Member Role Status Dates Jessica Kruger [employer], [employer]-C Primary Care Provider, Referring Provider, Other Provider Active Dr. Isaak Clemente MD Attending Provider Activ e Team Status: Inactive Member Role Status Dates Jessica Kruger [employer], [employer]-C Primary Care Provider, Attending Provider, Referring Provider Active Team Status: Inactive Member Role Status Dates Jessica Kruger [employer], [employer]-C Primary Care Provider Acti ve Dr. Tito Alexander MD Attending Provider, Emergency Provider Active Team Status: Inactive Member Role Status Dates Jessica Slick [employer], [employer]-C Primary Care Provider, Ref erring Provider Active Елена De Jesus PA, PA Attending Provider Active Team Status: Active Member Role Status Dates Jessica Kruger [employer], [employer]-C Primary Care Provider, Ref erring Provider Active Dr. Isaak Clemente MD Attending Provider Activ e Team Status: Inactive Member Role Status Dates Jessica Kruger [employer], [employer]-C Primary Care Provider Acti ve Елена De Jesus PA, PA Attending Provider, Referr ing Provider Active Team Status: Active Member Role Status Dates Jessica Kruger [employer], [employer]-C Primary Care Provider Acti ve Dr. Ramon Seth MD Attending Provider Active Team Status: Inactive Member Role Status Dates Jessica Kruger [employer], [employer]-C Primary Care Provider Acti ve Dr. Ramon Seth MD Attending Provider, Referring Pro vider Active Second Officer Relationship Specialty Start Date End Date System, Provider Not In DO NOT CHANGE DO [place] CH[place], [place] PCP - General 08/29/22 Jean Paul Bailey MD [address] [place] [address] [address] [place] [address] Surgeon General Surgery 08/29/22 Second Officer Relationship Specialty Start Date End Date System, Provider Not In DO NOT CHANGE DO [place], [place] PCP - General 08/29/22 Jean Paul Bailey MD [address] [place] [address] Surgeon General Surgery 08/29/22 Second Officer Relationship Specialty Start Date End Date System, Provider Not In DO NOT CHANGE DO [place], [place] PCP - General 08/29/22 Jean Paul Bailey MD [address] [place] [address] Surgeon General Surgery 08/29/22 Second Officer Relationship Specialty Start Date End Date System, Provider Not In DO NOT CHANGE DO [place], [place] PCP - General 08/29/22 Jean Paul Bailey MD [address] [place] [address] Surgeon General Surgery 08/29/22 Team Status: Inactive Member Role Status Dates Jessica Kruger NP, [employer]-C Primary Care Provider Acti ve Dr. Amber Renteria MD Emergency Provider Active Second Officer Relationship Specialty Start Date End Date System, Provider Not In DO NOT CHANGE DO [place], [place] PCP - General 08/29/22 Jean Paul Bailey MD [address] [place] [address] Surgeon General Surgery 08/29/22 Team Status: Inactive Member Role Status Dates Jessica Kruger [employer], [employer]-C Primary Care Provider, Ref erring Provider Active Rosanna Armstrong [employer], [employer]-C Attending Provider Active Team Status: Inactive Member Role Status Dates Jessica Kruger NP, [employer]-C Primary Care Provider Acti ve Dr. Amber Renteria MD Attending Provider, Emergency Provider Active Team Status: Inactive Member Role Status Dates Jessica Kruger [employer], [employer]-C Primary Care Provider Acti kristie Armstrong [employer], [employer]-C Attending Provider Active Second Officer Relationship Specialty Start Date End Date System, Provider Not In DO NOT CHANGE DO [place] PCP - General 08/29/22 Jean Paul Bailey MD [address] [place] [address] Surgeon General Surgery 08/29/22 Second Officer Relationship Specialty Start Date End Date System, Provider Not In DO NOT CHANGE DO [place] PCP - General 08/29/22 Jean Paul Bailey MD [address] [place] [address] Surgeon General Surgery 08/29/22 Team Status: Inactive Member Role Status Dates Jessica Kruger [employer], [employer]-C Primary Care Provider Acti ve Jennie Ordaz [employer], [employer]-C Attending Provider Active Second Officer Relationship Specialty Start Date End Date System, Provider Not In DO NOT CHANGE [place] PCP - General 08/29/22 Jean Paul Bailey MD [address] [place] [address] Surgeon General Surgery 08/29/22 Second Officer Relationship Specialty Start Date End Date System, Provider Not In DO NOT CHANGE [place] PCP - General 08/29/22 Jean Paul Bailey MD [address] [place] [address] Surgeon General Surgery 08/29/22 Second Officer Relationship Specialty Start Date End Date System, Provider Not In DO NOT CHANGE DO [place], [place] PCP - General 08/29/22 Jean Paul Bailey MD [address] [place] [address] Surgeon General Surgery 08/29/22 Second Officer Relationship Specialty Start Date End Date System, Provider Not In DO NOT CHANGE DO [place], [place] PCP - General 08/29/22 Jean Paul Bailey MD [address] [facility] [place] [id number] Surgeon General Surgery 08/29/22 Second Officer Relationship Specialty Start Date End Date System, Provider Not In DO NOT CHANGE DO [place], [place] PCP - General 08/29/22 Jean Paul Bailey MD [address] [place], [place] [id number] Surgeon General Surgery 08/29/22 Team Status: Active Member Role/Relationship Status Dates DINO Mcpherson Primary Care Provider Active Team Status: Inactive Member Role/Relationship Status Dates DINO Mcpherson Primary Care Provider Active S tart: August 02, 2024 End: August 02, 2024 Dr. Juan Gamez , DO Emergency Provider Active Start: August 02, 2024 End: August 02, 2024 Team Status: Active Member Role/Relationship Status Dates DINO Mcpherson Primary care physician Active Team Status: Inactive Member Role/Relationship Status Dates DINO Mcpherson Primary care physician Active Start: August 02, 2024 End: August 02, 2024 Dr. Juan Gamez , Attending physician Active Start: August 02, 2024 End: August 02, 2024 Dr. Juan Gamez , Emergency Department Physician Active Start: August 02, 2024 End: August 02, 2024 Team Status: Inactive Member Role/Relationship Status Dates DINO Mcpherson Primary care physician Active Start: October 28, 2024 End: October 28, 2024 DINO Mcpherson Referring Provider Active Star t: October 28, 2024 End: October 28, 2024 Alessia Mckeon NP, [employer] Attending physician Active Start: October 28, 2024 End: October 28, 2024 Team Status: Active Member Role/Relationship Status Dates DINO Mcpherson Primary care physician Active Start: October 28, 2024 Alessia Mckeon NP, [employer]-C Attending physician Active Start: October 28, 2024 Alessia Mckeon [employer], [employer]-C Referring Provider Active Start: October 28, 2024 Team Status: Inactive Member Role/Relationship Status Dates DINO Mcpherson Primary care physician Active Start: October 28, 2024 End: October 28, 2024 Alessia Mckeon NP, [employer]-C Attending physician Active Start: October 28, 2024 End: October 28, 2024 Alessia Mckeon NP, [employer]-C Referring Provider Active Start: October 28, 2024 End: October 28, 2024 Team Status: Active Member Role/Relationship Status Dates DINO Mcpherson Primary care physician Active Start: November 05, 2024 Alessia Mckeon NP, [employer]-C Attending physician Active Start: November 05, 2024 Alessia Mckeon NP, [employer]-C Referring Provider Active Start: November 05, 2024 Team Status: Active Member Role/Relationship Status Dates DINO Mcpherson Primary care physician Active Start: November 05, 2024 Alessia Mckeon NP, [employer]-C Referring Provider Active Start: November 05, 2024 Alessia Mckeon NP, [employer] Nurse Practitioner Active Start: November 05, 2024 Dr. Ramon Seth MD Attending physician Active Start: November 05, 2024 Goals (unrecognized section and content) Goals may [...] BE BASED ON THE PRIMARY CLINICAL RECORDS. [facility] [employer] [facility]. provides no warranty or guarantee of the accuracy or completeness of information in this document.
== END | disposition home or self-care (01) ==
PROVIDERS: Referring Provider Nurse Practitioner Gerontology; Visit Provider Nurse Practitioner Gerontology
DX: R06.09 Other forms of dyspnea (principal)
CPT/HCPCS: 94060; 94726; 94729